=== PATIENT | male | born 1975 | race Caucasian/White ===

== ENCOUNTER 2019-08-22 12:46 | Emergency (ER) | payer BC, OTHER ==
[~2019-08-22] VITALS: Ht 170.2 cm; Wt 92.5 kg
--- NOTE | 2019-08-22 13:02 | Emergency Department Note ---
History of Present Illnes History of Present Illness Chief Complaint: COVID PUI History of Present Illness This is a 44 year old male hx back pain, back surgery 2007, here for uri symptoms, Reports that he has had a fever and cough for 3 days and his fever will not stay down or away. 2 hours ago his fever was 103. He took tylenol and angeline seltzer cold. . Historian: Patient Arrival Mode: Car Onset (how long ago): day(s) Radiation: Reports non-radiation Severity: moderate Duration (how long): day(s) Timing of current episode: intermittent Progression: waxing and waning Relieving factors: none Exacerbating factors: none Treatments prior to arrival: none Past Medical/Family History Physician Review I have reviewed the patient's past medical and family history. Any updates have been documented here. Past Medical History Recent Fever: No Clinical Suspicion of Infectio: No New/Unexplained Change in Ment: No Past Medical History: None, Chronic Back Pain Other Medical History: tachy Other Surgery: BACK SURG 2007 Social History Smoking Cessation: Unknown if ever smoked Any Illegal Drug Use: No TB Exposure/Symptoms: No Physically hurt or threatened: No Other Last Tetanus: UNKNOWN Any Pre-Existing Lines (PICC,: No Review of Systems Review of Systems Constitutional: Reports as per HPI, Reports chills, Reports fever, Reports malaise, Reports weakness EENTM: Reports no symptoms Cardiovascular: Reports no symptoms Respiratory: Reports as per HPI, Reports chest congestion, Reports cough Gastrointestinal: Reports no symptoms Genitourinary: Reports no symptoms Musculoskeletal: Reports no symptoms, Reports muscle pain Integumentary: Reports no symptoms Neurological: Reports no symptoms Psychological: Reports no symptoms Endocrine: Reports no symptoms Hematological/Lymphatic: Reports no symptoms Physical Exam Related Data Allergies: Coded Allergies: No Known Allergies (Unverified , 08/22/19) Vital signs reviewed: Yes Physical Exam CONSTITUTIONAL Constitutional: Present well-developed, Present well-nourished HENT HENT: Present normocephalic, Present atraumatic, Present oropharynx clear/moist, Present nose normal HENT L/R: Present left ext ear normal, Present right ext ear normal EYES Eyes: Reports PERRL, Reports conjunctivae normal NECK Neck: Present ROM normal PULMONARY Pulmonary: Present effort normal, Present breath sounds normal CARDIOVASCULAR Cardiovascular: Present regular rhythm, Present heart sounds normal, Present capillary refill normal, Present normal rate GASTROINTESTINAL Abdominal: Present soft, Present nontender, Present bowel sounds normal GENITOURINARY Genitourinary: Present exam deferred SKIN Skin: Present warm, Present dry MUSCULOSKELETAL Musculoskeletal: Present ROM normal NEUROLOGICAL Neurological: Present alert, Present oriented x 3, Present no gross motor or sensory deficits PSYCHOLOGICAL Psychological: Present mood/affect normal, Present judgement normal Results Laboratory Lab results reviewed: Yes (covid pending, cbc, cmp ok) Imaging Imaging results reviewed: Yes Impressions no acute Assessment & Plan Medical Decision Making MDM covid vs URI Reassessment Reassessment time: 15:45 Reassessment heart rates improved Assessment & Plan Final Impression: (1) Tachycardia (2) Viral infection (3) Upper respiratory infection Depart Disposition: HOME, SELF-long-term Meds Active Scripts Diphenhydra/Phenyleph/Acetamin (THERAFLU COLD AND COUGH POWDER) 1 Each Powd.pack, 1 PACKET PO Q6H PRN for fever and or pain, #12 Prov:TRI RIZZO MD 08/22/19 Azithromycin (Z-ROXIE) 250 Mg Tablet, 250 MG PO UD, #1 UDPKT Z-Pack Prov:TRI RIZZO MD 08/22/19 Dexamethasone (DEXAMETHASONE) 6 Mg Tablet, 1 TAB PO DAILY, #7 Prov:TRI RIZZO MD 08/22/19 Reported Medications Lisinopril (LISINOPRIL) 10 Mg Tablet, 40 MG PO DAILY, #30 TAB 08/22/19 Medications in the ED rocephin 1 gram IV, Tylenol 650 mg po once Physician Attestation Provider Attestation f/u his doctor next week TRI RIZZO MD Aug 22, 2019 13:02
[2019-08-22] MEDS ORDERED: SODIUM CHLORIDE 0.9% 1000ML 1,000 ML IV STA (13:11)
[2019-08-22] MEDS ORDERED: DEXAMETHASONE SOD PHOS 10 MG/1 ML VIAL IV ONE (13:15)
[2019-08-22] MEDS ORDERED: CEFTRIAXONE SOD 1 GM/NS 50 ML 50 ML IV ONE (13:15)
[2019-08-22] MEDS ORDERED: ONDANSETRON HCL INJ 2MG/ML 2ML 2 MG/ML VIAL IV ONE (13:15)
[2019-08-22] MEDS ORDERED: LISINOPRIL10 MG PO (13:23)
[2019-08-22] MEDS ORDERED: SODIUM CHLORIDE 0.9% 1000ML 1,000 ML ONE (13:31)
--- NOTE | 2019-08-22 13:34 | Diagnostic Imaging Report ---
EXAMINATION: CXR 1 VEW - HOPD INDICATION: Fever COMPARISON: None FINDINGS: LINES/TUBES:None LUNGS:The lungs are well-inflated. No focal consolidation or pulmonary edema. PLEURA:No pleural effusion or pneumothorax. MEDIASTINUM:The cardiomediastinal silhouette appears normal in size and shape. BONES/SOFT TISSUES:No acute osseous injury. ABDOMEN:No free air under the diaphragm. IMPRESSION: No focal pneumonia or pulmonary edema. Signed by: Farrah Pierson MD on 08/22/2019 1:30 PM
[2019-08-22] MEDS ORDERED: THERAFLU COLD1 EAC4 PO (14:04)
[2019-08-22] MEDS ORDERED: DEXAMETHASONE6 MG PO (14:04)
[2019-08-22] MEDS ORDERED: AZITHROMYCIN250 MG PO (14:04)
[2019-08-22 17:52] VITALS: BP 126/82
--- NOTE | 2019-08-23 07:00 | NUR ---
Informed by Dr. Mata of positive results
== END 2019-08-22 15:20 | disposition home or self-care (01) ==
LOC: FSED 12:46
DX: U07.1 COVID-19 (principal); R50.9 Fever, unspecified; R05 Cough; R00.0 Tachycardia, unspecified; J06.9 Acute upper respiratory infection, unspecified; B34.9 Viral infection, unspecified
CPT/HCPCS: 71045; 80053; 85025; 87635; 96374; 96375; 99284; J0696; J1100; J2405; J7030

== ENCOUNTER 2019-08-24 17:12 | Inpatient (IN) | payer BC, OTHER ==
[~2019-08-24] VITALS: Ht 170.2 cm; Wt 84.4 kg
[~2019-08-24 17:12] MED LIST: AZITHROMYCIN250 MG PO; DEXAMETHASONE6 MG PO; LISINOPRIL10 MG PO; THERAFLU COLD1 EAC4 PO
[2019-08-24] MEDS ORDERED: SODIUM CHLORIDE 0.9% 1000ML 1,000 ML IV STA (17:15)
[2019-08-24] MEDS ORDERED: HYDROCODONE/CHLORPHENIRAMINE 5 ML LIQCR PO ONE (17:30)
[2019-08-24] MEDS: CEFTRIAXONE SOD 1 GM/NS 50 ML 50 ML IV SCH (17:47)
[2019-08-24] MEDS: AZITHROMYCIN 500MG/NS 250 ML 250 ML IV SCH (18:09)
[2019-08-24 18:10] LABS: BASOPHILS % 0.1 % (0.0-1.0); HEMATOCRIT 38.3 % (38.2-49.6); HEMOGLOBIN 13.3 g/dL (14.0-18.0); LYMPHOCYTES % 9.8 % (18.0-39.1); MEAN CORPUSCULAR HEMOGLOBIN 29.8 pg (28-32); MEAN CORPUSCULAR HGB CONC 34.7 g/dL (31-35); MEAN CORPUSCULAR VOLUME 85.9 fL (81-99); MONOCYTES # (AUTO) 0.4 (0.2-0.8); MONOCYTES % 4.4 % (4.4-11.3); NEUTROPHILS # (AUTO) 8.3 (2.1-6.9); NEUTROPHILS % 85.2 % (38.7-80.0); PLATELET COUNT 152 x10e3/uL (140-360); RED BLOOD COUNT 4.46 x10e6/uL (4.3-5.7)
[2019-08-24 18:15] LABS: INR 0.9; PROTHROMBIN TIME 12.7 seconds (11.9-14.5)
[2019-08-24 18:16] LABS: PARTIAL THROMBOPLASTIN TIME 30.4 seconds (23.8-35.5)
[2019-08-24 18:24] LABS: ALANINE AMINOTRANSFERASE 53 IU/L (0-55); ALBUMIN 3.4 g/dL (3.5-5.0); ALBUMIN/GLOBULIN RATIO 1.1 (0.8-2.0); ALKALINE PHOSPHATASE 42 IU/L (40-150); ANION GAP 15.3 mmol/L (8-16); BLOOD UREA NITROGEN 18 mg/dL (7-26); BUN/CREATININE RATIO 23 (6-25); CALCIUM 8.6 mg/dL (8.4-10.2); CARBON DIOXIDE 24 mmol/L (22-29); CHLORIDE 102 mmol/L (98-107); CREATINE KINASE 152 IU/L (30-200); CREATININE, SERUM 0.77 mg/dL (0.72-1.25); EST GLOMERULAR FILTRATION RATE > 60 ML/MIN (60-); GLUCOSE 103 mg/dL (74-118); POTASSIUM 3.3 mmol/L (3.5-5.1); SODIUM 138 mmol/L (136-145)
--- NOTE | 2019-08-24 18:24 | Diagnostic Imaging Report ---
EXAMINATION: CHEST SINGLE (PORTABLE) INDICATION: COUGH, SOB COMPARISON: Chest radiograph 08/22/2019. FINDINGS: TUBES and LINES: None. LUNGS: Hypoinflated lungs with interval development of patchy and peripheral opacities predominantly in the lower lungs. PLEURA: No pleural effusion or pneumothorax. HEART AND MEDIASTINUM: The cardiomediastinal silhouette is unremarkable. BONES AND SOFT TISSUES: No acute osseous lesion. Soft tissues are unremarkable. UPPER ABDOMEN: No free air under the diaphragm. IMPRESSION: Interval development of bilateral opacities, suggestive of viral pneumonia. Recommend follow-up chest radiograph in 6-8 weeks to assess for resolution. Signed by: Dr. Anurag Braun MD on 08/24/2019 6:21 PM
[2019-08-24 18:48] LABS: B-TYPE NATRIURETIC PEPTIDE2 < 10.0 pg/mL (0-100)
--- NOTE | 2019-08-24 18:48 | Emergency Department Note ---
History of Present Illnes History of Present Illness Chief Complaint: COVID PUI History of Present Illness This is a 44 year old male PT WITH COUGH, PROGRESSIVE SOB X 4 DAYS. STATES SEEN AT [facility] ON SUNDAY 2 DAYS AGO AND TESTED COVID POSITIVE. PT SATS 92% RA, FEVER 104 AT HOME. 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 Historian: Patient Arrival Mode: [facility] Treatment TOWER EQUIPMENT REPAIRER: IV, O2, EKG, See EMS Report Briquette Operator Required: No Onset (how long ago): day(s) (4) Location: LUNGS Radiation: Reports non-radiation Severity: moderate Onset quality: gradual Timing of current episode: constant Progression: worsening Chronicity: new Relieving factors: none Exacerbating factors: none Associated symptoms: Reports cough, Reports fever/chills, Reports shortness of breath, Reports other (ACHY ALL OVER) Treatments prior to arrival: none Past Medical/Family History Physician Review I have reviewed the patient's past medical and family history. Any updates have been documented here. Past Medical History Recent Fever: Yes Clinical Suspicion of Infectio: Yes New/Unexplained Change in Ment: No Past Medical History: Hypertension, Chronic Back Pain Other Medical History: tachy Past Surgical History: Back Surgery Other Surgery: BACK SURG 2007 Social History Smoking Cessation: Never Smoker Counseling Performed: No Alcohol Use: None Any Illegal Drug Use: No TB Exposure/Symptoms: No Physically hurt or threatened: No Other Last Tetanus: UNKNOWN Any Pre-Existing Lines (PICC,: No Last Flu: Y Last Pneumovax: N Review of Systems Review of Systems Constitutional: Reports as per HPI, Reports chills, Reports fever EENTM: Reports no symptoms Cardiovascular: Reports no symptoms Respiratory: Reports as per HPI, Reports cough, Reports dyspnea Gastrointestinal: Reports no symptoms Genitourinary: Reports no symptoms Musculoskeletal: Reports as per HPI, Reports joint pain, Reports muscle pain Integumentary: Reports no symptoms Neurological: Reports no symptoms Psychological: Reports no symptoms Endocrine: Reports no symptoms Hematological/Lymphatic: Reports no symptoms Physical Exam Related Data Allergies: Coded Allergies: No Known Allergies (Unverified , 08/22/19) Triage Vital Signs Vital Signs Date Time Temp Pulse Resp B/P (MAP) Pulse Ox O2 Delivery O2 Flow Rate FiO2 08/24/19 17:13 103.0 120 28 149/84 92 08/24/19 17:48 3.0 Vital signs reviewed: Yes Physical Exam CONSTITUTIONAL Constitutional: Present distressed HENT HENT: Present normocephalic, Present atraumatic, Present oropharynx clear/moist , Present nose normal HENT L/R: Present left ext ear normal, Present right ext ear normal EYES Eyes: Reports PERRL, Reports conjunctivae normal NECK Neck: Present ROM normal PULMONARY Pulmonary: Present respiratory distress (MILD WITH TACHYPNEA), Present other (DECREASED BREATH SOUNDS BILAT BASES) CARDIOVASCULAR Cardiovascular: Present regular rhythm, Present heart sounds normal, Present tachycardia GASTROINTESTINAL Abdominal: Present soft, Present nontender, Present bowel sounds normal GENITOURINARY Genitourinary: Present exam deferred SKIN Skin: Present warm, Present dry MUSCULOSKELETAL Musculoskeletal: Present ROM normal NEUROLOGICAL Neurological: Present alert, Present oriented x 3, Present no gross motor or sensory deficits PSYCHOLOGICAL Psychological: Present mood/affect normal, Present judgement normal Results Laboratory Result Diagram: 08/24/19 1740 08/24/19 1740 Laboratory Laboratory Tests Test 08/24/19 17:40 White Blood Count 9.78 x10e3/uL (4.8-10.8) Red Blood Count 4.46 x10e6/uL (4.3-5.7) Hemoglobin 13.3 g/dL (14.0-18.0) Hematocrit 38.3 % (38.2-49.6) Mean Corpuscular Volume 85.9 fL (81-99) Mean Corpuscular Hemoglobin 29.8 pg (28-32) Mean Corpuscular Hemoglobin Concent 34.7 g/dL (31-35) Red Cell Distribution Width 12.0 % (11.7-14.4) Platelet Count 152 x10e3/uL (140-360) Neutrophils (%) (Auto) 85.2 % (38.7-80.0) Lymphocytes (%) (Auto) 9.8 % (18.0-39.1) Monocytes (%) (Auto) 4.4 % (4.4-11.3) Eosinophils (%) (Auto) 0.0 % (0.0-6.0) Basophils (%) (Auto) 0.1 % (0.0-1.0) Neutrophils # (Auto) 8.3 (2.1-6.9) Lymphocytes # (Auto) 1.0 (1.0-3.2) Monocytes # (Auto) 0.4 (0.2-0.8) Eosinophils # (Auto) 0.0 (0.0-0.4) Basophils # (Auto) 0.0 (0.0-0.1) Absolute Immature Granulocyte (auto 0.05 x10e3/uL (0-0.1) Prothrombin Time 12.7 seconds (11.9-14.5) Prothromb Time International Ratio 0.90 Activated Partial Thromboplast Time 30.4 seconds (23.8-35.5) Sodium Level 138 mmol/L (136-145) Potassium Level 3.3 mmol/L (3.5-5.1) Chloride Level 102 mmol/L (98-107) Carbon Dioxide Level 24 mmol/L (22-29) Anion Gap 15.3 mmol/L (8-16) Blood Urea Nitrogen 18 mg/dL (7-26) Creatinine 0.77 mg/dL (0.72-1.25) Estimat Glomerular Filtration Rate > 60 ML/MIN (60-) BUN/Creatinine Ratio 23 (6-25) Glucose Level 103 mg/dL (74-118) Lactic Acid Level 1.3 mmol/L (0.5-2.0) Calcium Level 8.6 mg/dL (8.4-10.2) Total Bilirubin 0.5 mg/dL (0.2-1.2) Aspartate Amino Transf (AST/SGOT) 23 IU/L (5-34) Alanine Aminotransferase (ALT/SGPT) 53 IU/L (0-55) Alkaline Phosphatase 42 IU/L (40-150) Creatine Kinase 152 IU/L (30-200) Creatine Kinase MB 0.40 ng/mL (0-5.0) Troponin I < 0.001 ng/mL (0-0.300) Total Protein 6.4 g/dL (6.5-8.1) Albumin 3.4 g/dL (3.5-5.0) Globulin 3.0 g/dL (2.3-3.5) Albumin/Globulin Ratio 1.1 (0.8-2.0) Lab results reviewed: Yes Imaging Imaging results reviewed: Yes Impressions Procedure: [id number] DX/CHEST SINGLE (PORTABLE) Exam Date: 08/24/19 Exam Time: 3864 REPORT STATUS: Signed EXAMINATION: CHEST SINGLE (PORTABLE) INDICATION: COUGH, SOB COMPARISON: Chest radiograph 08/22/2019. FINDINGS: TUBES and LINES: None. LUNGS: Hypoinflated lungs with interval development of patchy and peripheral opacities predominantly in the lower lungs. PLEURA: No pleural effusion or pneumothorax. HEART AND MEDIASTINUM: The cardiomediastinal silhouette is unremarkable. BONES AND SOFT TISSUES: No acute osseous lesion. Soft tissues are unremarkable. UPPER ABDOMEN: No free air under the diaphragm. IMPRESSION: Interval development of bilateral opacities, suggestive of viral pneumonia. Recommend follow-up chest radiograph in 6-8 weeks to assess for resolution. Signed by: Dr. Anurag Braun MD on 08/24/2019 6:21 PM Procedures 12 Lead ECG Interpretation ECG Interpretation : ECG: ECG 1 Briquette Operator: Interpreted by ED physician Date: Aug 24, 2019 Time: 17:20 Rhythm: sinus tachycardia Rate: tachycardia (129) QRS axis: normal ST segments normal: Yes T waves normal: Yes Q waves: III, aVF Clinical Impression: abnormal ECG (POOR RWP) Assessment & Plan Medical Decision Making MDM COVID POSITIVE - CHECK CBC, CHEM'S, CARDIACS, CXR, PANCX'S, LACTIC ACID - R/O PNEUMONIA, SEPSIS, RENAL INSUFF, ELECTROLYTE ABNL, STEMI/NSTEMI Reassessment Reassessment SPOKE WITH DR HI, DR Max BERGERON, DR NUNES Assessment & Plan Final Impression: (1) Pneumonia due to COVID-19 virus Depart Disposition: ADMITTED Last Vital Signs Date Time Temp Pulse Resp B/P (MAP) Pulse Ox O2 Delivery O2 Flow Rate FiO2 08/24/19 18:10 102.0 121 30 118/84 100 08/24/19 17:48 3.0 Home Meds Active Scripts Diphenhydra/Phenyleph/Acetamin (THERAFLU COLD AND COUGH POWDER) 1 Each Powd.pack, 1 PACKET PO Q6H PRN for fever and or pain, #12 Prov:TRI RIZZO MD 08/22/19 Azithromycin (Z-ROXIE) 250 Mg Tablet, 250 MG PO UD, #1 UDPKT Z-Pack Prov:TRI RIZZO MD 08/22/19 Dexamethasone (DEXAMETHASONE) 6 Mg Tablet, 1 TAB PO DAILY, #7 Prov:TRI RIZZO MD 08/22/19 Reported Medications Lisinopril (LISINOPRIL) 10 Mg Tablet, 40 MG PO DAILY, #30 TAB 08/22/19 Medications in the ED Sodium Chloride 1,000 ml @ 0 mls/hr Q0M STAT IV Last administered on 08/24/19at 17:47; Admin Dose 1,000 MLS/HR; Start 08/24/19 at 17:15; Stop 08/24/19 at 17:18; Status DC Ceftriaxone Sodium 50 ml @ 100 mls/hr Q24H IV Last administered on 08/24/19at 17:47; Admin Dose 100 MLS/HR; Start 08/24/19 at 17:15; Stop 08/31/19 at 17:14 Azithromycin 250 ml @ 200 mls/hr DAILY IV Last administered on 08/24/19at 18:09; Admin Dose 200 MLS/HR; Start 08/24/19 at 17:15; Stop 08/31/19 at 17:14 Hydrocodone Bitartrate 5 ml NOW ONCE PO Last administered on 08/24/19at 17:47; Admin Dose 5 ML; Start 08/24/19 at 17:30; Stop 08/24/19 at 17:31; Status DC Sodium Chloride 1,000 ml @ 125 mls/hr Q8H IV ; Start 08/24/19 at 18:45; Stop 08/25/19 at 10:44; Status UNV Albuterol 2 gm RQ4H PRN INH SHORTNESS OF BREATH; Start 08/24/19 at 18:45; Stop 09/23/19 at 18:44; Status UNV RERE KAPLAN MD Aug 24, 2019 18:48
[2019-08-24] MEDS ORDERED: IBUPROFEN 800MG/ 200ML 800 MG in SODIUM CHLORIDE 0.9% 250ML 250 ML IV ONE (19:00)
[2019-08-24] MEDS ORDERED: ACETAMINOPHEN 325 MG TAB PO PRN (19:00)
[2019-08-24] MEDS ORDERED: DEXAMETHASONE SOD PHOS 10 MG/1 ML VIAL IV ONE (19:15)
--- NOTE | 2019-08-24 19:50 | Consultation ---
DATE OF CONSULTATION: Pulmonary Critical Care Consultation CHIEF COMPLAINT: Cough and fever. HISTORY OF PRESENT ILLNESS: The patient is a 44-year-old man. He reports fever and cough for 5 days. He had used some ibuprofen at home, but feels he is getting worse. He also notes some dyspnea. He denies nausea or vomiting. PAST MEDICAL HISTORY: 1. No prior history of asthma or COPD. 2. No prior history of diabetes. 3. Hypertension. 4. No prior heart disease. PAST SURGICAL HISTORY: Noncontributory. ALLERGIES: NO KNOWN DRUG ALLERGIES. SOCIAL HISTORY: The patient is not a smoker or drinker. FAMILY HISTORY: Noncontributory. REVIEW OF SYSTEMS: He reports some fever. There is no headache. He has some cough. He is not complaining of chest pain. He has some dyspnea. There is no nausea or vomiting. He has no leg edema. PHYSICAL EXAMINATION: VITAL SIGNS: The patient is afebrile. The vital signs are stable. He is febrile to 103.2. His heart rate is 125, and his respiratory rate is 25. His blood pressure is 122/75. HEENT: Shows no facial swelling or erythema. CARDIAC: Reveals tachycardia with normal S1 and S2. LUNGS: Auscultation of lungs reveals crackles at the bases. There is no wheezing. ABDOMEN: Soft and nontender. There is no rebound or guarding. EXTREMITIES: Shows no leg edema or calf tenderness. There is no cyanosis or clubbing. SKIN: Shows no rashes. NEUROLOGICAL: Shows no focal abnormalities. LABORATORY DATA: White blood cell count is 9.7, hemoglobin is 13.3, and the platelet count is 152. The BUN to creatinine ratio is 18 to 0.77, and the potassium is 3.3. Other electrolytes are within normal limits. The albumin is 3.4. RADIOGRAPHIC DATA: Chest x-ray shows bilateral infiltrates, suggestive of viral pneumonia. IMPRESSION: 1. COVID-19 and viral pneumonia. 2. Tachycardia. 3. Hypokalemia. 4. Dehydration. PLAN: 1. IV fluids. 2. Zithromax and Rocephin. 3. Lovenox. 4. Dexamethasone. 5. Cough suppressant. Maximilian Lowry MD [facility] :27:28 /[id number]
[2019-08-24 20:00] VITALS: BP 121/79
[2019-08-24] MEDS ORDERED: POTASSIUM CHLORIDE 20 MEQ TAB CR PO NR ×2 (20:00→21:46)
[2019-08-24] MEDS ORDERED: ZOLPIDEM TARTRATE 10 MG TAB PO PRN (21:00)
[2019-08-24] MEDS: SODIUM CHLORIDE 0.9% 1000ML 1,000 ML IV SCH (21:44)
[2019-08-24] MEDS: ENOXAPARIN SOD INJ 40 MG/0.4 ML SYR SC SCH (21:44)
[2019-08-24] MEDS: GUAIFENESIN/CODEINE 10 ML CUP PO PRN (21:47)
[2019-08-24] MEDS ORDERED: POTASSIUM CHLORIDE 20 MEQ TAB CR PO SCH (21:51)
[2019-08-24 21:52] VITALS: BP 121/79
[2019-08-24 21:57] VITALS: BP 121/79
[2019-08-25] VITALS (15 sets, daily range): BP systolic 117–193; BP diastolic 67–105
[2019-08-25] MEDS: GUAIFENESIN/CODEINE 10 ML CUP PO PRN ×2 (01:55→21:30)
[2019-08-25] MEDS: ALBUTEROL SULFATE HFA 8GM INHALATION AEROSOL INH PRN (01:55)
[2019-08-25] MEDS: ACETAMINOPHEN 325 MG TAB PO PRN (02:20)
--- NOTE | 2019-08-25 02:36 | NUR ---
0150 Patient c/o cough and SOB. Patient taking shallow rapid breaths. 50 to 60 breaths per minute, 02 sat 84 % RA. Attempted to apply 02, patient stating " it is not helping" Encourage patient to wear 02, explained 02 sat 84% and needing to wear 02. Patient verbalized understanding. 02 applied 2L NC. 0155 PRN medication administered, v/s 193/105, 132, 93% 5L NC, RR 35, 98.7. Patient shivering and reporting he is "freezing" A/C in room adjusted and additional blanket given. 0200 Patient reporting "feeling better, this happens every night this is why I have not been able to sleep" v/s 162/100, 115, 28 RR, 95% 5L NC, 99.7. 0207 No further shivering noted. v/s 165/96, 112, 97% on 02 3L NC, 25RR, 99.7. Will continue to monitor. Addendum: 08/25/19 at 0250 by Brenda Mario RN 0207 BP 156/96
[2019-08-25 02:55] LABS: CLARITY,URINE CLEAR (CLEAR); COLOR,URINE YELLOW (YELLOW); KETONES,URINE NEGATIVE (NEGATIVE); LEUKOCYTE ESTERASE ,URINE NEGATIVE (NEGATIVE); NITRITE,URINE NEGATIVE (NEGATIVE); PROTEIN,URINE DIPSTICK NEGATIVE (NEGATIVE)
[2019-08-25 02:56] LABS: BACTERIA,URINE MODERATE /HPF; BILIRUBIN,URINE NEGATIVE (NEGATIVE); EPITHELIAL CELLS,URINE FEW /LPF; MUCUS,URINE MANY (RARE); URINE UROBILINOGEN 0.2 mg/dL (0.2 - 1)
[2019-08-25 03:02] LABS: BASOPHILS % 0.1 % (0.0-1.0); HEMATOCRIT 36.5 % (38.2-49.6); HEMOGLOBIN 12.6 g/dL (14.0-18.0); LYMPHOCYTES # (AUTO) 1.1 (1.0-3.2); LYMPHOCYTES % 10.6 % (18.0-39.1); MEAN CORPUSCULAR HEMOGLOBIN 30.1 pg (28-32); MEAN CORPUSCULAR HGB CONC 34.5 g/dL (31-35); MEAN CORPUSCULAR VOLUME 87.3 fL (81-99); MONOCYTES # (AUTO) 0.3 (0.2-0.8); MONOCYTES % 2.5 % (4.4-11.3); NEUTROPHILS % 86.3 % (38.7-80.0); PLATELET COUNT 127 x10e3/uL (140-360); RED BLOOD COUNT 4.18 x10e6/uL (4.3-5.7); RED CELL DISTRIBUTION WIDTH 12.2 % (11.7-14.4)
[2019-08-25 03:04] LABS: CREATINE KINASE 240 IU/L (30-200)
--- NOTE | 2019-08-25 03:05 | NUR ---
Left message for Dr Aparicio, patient c/o cough given PRN Robitussin with codeine 2 different times and patient stating not helping like medication received in ER. Awaiting call back.
[2019-08-25 03:32] LABS: ALANINE AMINOTRANSFERASE 46 IU/L (0-55); ALBUMIN 3.2 g/dL (3.5-5.0); ALKALINE PHOSPHATASE 42 IU/L (40-150); ANION GAP 15.8 mmol/L (8-16); BLOOD UREA NITROGEN 14 mg/dL (7-26); BUN/CREATININE RATIO 17 (6-25); CARBON DIOXIDE 23 mmol/L (22-29); CHLORIDE 103 mmol/L (98-107); CREATININE, SERUM 0.83 mg/dL (0.72-1.25); EST GLOMERULAR FILTRATION RATE > 60 ML/MIN (60-); GLUCOSE 94 mg/dL (74-118); POTASSIUM 3.8 mmol/L (3.5-5.1); SODIUM 138 mmol/L (136-145)
--- NOTE | 2019-08-25 03:35 | NUR ---
Return call Dr Aparicio, New orders received.
[2019-08-25] MEDS: SODIUM CHLORIDE 0.9% 1000ML 1,000 ML IV SCH (03:50)
[2019-08-25] MEDS: HYDROCODONE/CHLORPHENIRAMINE 5 ML LIQCR PO PRN ×2 (03:50→13:26)
[2019-08-25] MEDS ORDERED: IBUPROFEN 600 MG TAB PO SCH (06:30)
--- NOTE | 2019-08-25 06:45 | NUR ---
0615 Tele called and stated patient 02 sat off and HR 140's. Patient in bed, noted retractions, RR 48, HR 138, 02 sat 83% on 3L NC. 02 increased to 5L NC, 02 sat 86%. Patient placed on non-rebreather, sating 93%. [address] Aparicio regarding v/s 169/92, 138, 48 RR, 93% on non-rebreather, temp 103.0 tylenol given at 0220, no other PRN med available for temp. New order for Motrin 600mg po x1, and call Dr Lowry. [address] Lowry regarding v/s and 02 sat 86% on 5L NC. Patients still having retractions, RR 35, Patient on non-rebreather at 94 to 97% on non-rebreather. New orders to transfer to ICU, place 2 ivs, and place on vapotherm 0635 Dr Lowry on unit to see patient. Patient sitting on side of bed, HR 148 and 02 sat 79% while drinking water. Non-rebreather reapplied, 02 sats up to 93 to 94%. New order for EKG to check rhythm.
--- NOTE | 2019-08-25 07:00 | NUR ---
RECEIVED REPORT FROM OFF GOING NIGHT NURSE. PATIENT ON NON-REBREATHER @ 15 LPM. TEMP 103.0. PATIENT IN BED NO RETRACTIONS NOTED AT THIS TIME. COUGHING NOTED RR- 30. DR. BERGERON AT BEDSIDE. ORDERS TO TRANSFER PATIENT TO ICU. BED IN LOWEST POSITION AND LOCKED. CALL LIGHT WITHIN REACH
--- NOTE | 2019-08-25 07:37 | Diagnostic Imaging Report ---
Examination: Single AP view of the chest. COMPARISON: Portable chest 08/24/2019 INDICATION: Pneumonia IMPRESSION: 1. Lines and Tubes: None 2. Hypoinflated lungs. Interval worsening of bilateral patchy, predominantly peripheral airspace opacities involving the upper and lower lobes, consistent with pneumonia (including viral). 3. Prominence of the cardiac silhouette, which is partly due to low lung volumes. Central pulmonary venous crowding 4. No acute bony abnormalities. Signed by: Dr. Aniket Loredo M.D. on 08/25/2019 7:34 AM
--- NOTE | 2019-08-25 08:01 | Progress Note ---
DATE: Pulmonary Critical Care Progress Note SUBJECTIVE: The patient had more difficulty breathing today. His desaturations fell into the low 80s. He had to be placed on 100%. He is now on 100% and has tachycardia, but still is saturating in the high 80s. PHYSICAL EXAMINATION: VITAL SIGNS: The patient is afebrile. T-max is 103. The heart rate is 138. The respiratory rate is 40 and saturation is 96% on 100%. HEENT: Shows no facial swelling or erythema. CARDIAC: Irregularly regular rhythm with normal S1 and S2. LUNGS: Auscultation of lungs reveals crackles at the bases. There is no wheezing. ABDOMEN: Soft and nontender. There is no rebound or guarding. EXTREMITIES: Shows no leg edema or calf tenderness. There is no cyanosis or clubbing. SKIN: Shows no rashes. NEUROLOGICAL: Shows no focal abnormalities. LABORATORY DATA: BUN to creatinine ratio is 14 to 0.83. Other electrolytes are within normal limits. The albumin is 3.2. The white blood cell count is 10.45 and the hemoglobin is 12.6. The platelet count is 127. IMPRESSION: 1. Acute respiratory failure. 2. Viral pneumonia and COVID-19 infection. 3. Sinus tachycardia. 4. Dehydration. PLAN: 1. The patient will be placed on Vapotherm and transferred to ICU. 2. Continue current antibiotics. 3. Stop any intravenous fluids. 4. Dexamethasone. 5. Lovenox. 6. Evaluation for remdesivir 7. case discussed with nursing, respiratory, administration, infectious disease and patient 8. greater than 35 minutes in direct critical care time. Maximilian Lowry MD [facility] /[id number] YOSVANY
[2019-08-25] MEDS: DEXAMETHASONE SOD PHOS 10 MG/1 ML VIAL IV SCH (11:34)
[2019-08-25] MEDS: ENOXAPARIN SOD INJ 40 MG/0.4 ML SYR SC SCH ×2 (11:34→21:15)
[2019-08-25] MEDS ORDERED: SODIUM CHLORIDE 0.9% 1000ML 1,000 ML ONE (11:42)
[2019-08-25] MEDS: AZITHROMYCIN 500MG/NS 250 ML 250 ML IV SCH (11:45)
--- NOTE | 2019-08-25 11:53 | NUR ---
CALLED REPORT TO ICU- REPORT GIVEN TO KELLY THOMPSON. NON-REBREATHER @ 15 LPM OXYGEN STATING AT 100%. NO RETRACTIONS NOTED. FEVER BROKE TO 98.0 AFTER TYLENOL. PATIENT OFF THE UNIT @ 1132. VIA WHEEL CHAIR ACCOMPANIED BY PCT AND RN TO ICU.
[2019-08-25] MEDS ORDERED: REMDESIVIR 200MG/NS 100ML 200 MG in SODIUM CHLORIDE 0.9% 100 ML 100 ML IV ONE (14:00)
[2019-08-25] MEDS ORDERED: REMDESIVIR IV ONE (14:00)
[2019-08-25] MEDS ORDERED: SODIUM CHLORIDE 0.45% IV ONE (14:00)
[2019-08-25] MEDS: METOPROLOL TARTRATE 25 MG TAB PO SCH ×2 (14:40→18:19)
[2019-08-25] MEDS: ASCORBIC ACID 500 MG TAB PO SCH (14:40)
[2019-08-25 15:23] LABS: CREATINE KINASE 215 IU/L (30-200)
[2019-08-25] MEDS: CEFTRIAXONE SOD 1 GM/NS 50 ML 50 ML IV SCH (16:54)
--- NOTE | 2019-08-25 16:58 | Progress Note ---
DATE: SUBJECTIVE: Mr. Jd Molina was moving to intensive care unit. He remains comfortable. He thought remdesivir. He agreed for it. We will follow. MD MAYURI Taylor/REYESL /[id number]
[2019-08-25] MEDS ORDERED: DEXMEDETOMIDINE 200MCG/NS 50ML 50 ML IV PRN (17:45)
--- NOTE | 2019-08-25 18:55 | Progress Note ---
DATE: 08/25/2019 SUBJECTIVE: Mr. Jesse Miles comes in with 6 days of fever, chills, cough, and shortness of breath, getting progressively worse. PAST MEDICAL HISTORY: The patient has no past medical history. PAST SURGICAL HISTORY: Denies. ALLERGIES: NKA. SOCIAL HISTORY: No smoking, drug abuse, or alcohol abuse. PHYSICAL EXAMINATION: GENERAL: He is currently alert and oriented, does not seem to be in acute distress. VITAL SIGNS: Stable, currently afebrile. HEENT: He is not icteric. NECK: Supple. CHEST: Crackles bilateral. COR: S1 and S2. ABDOMEN: Soft. IMPRESSION: COVID-19. PLAN: Discussed with the patient. I offered him remdesivir, which was an investigational drug with expanded access 4% of cases. He agreed to it, in fact, he was given phone number, concerned about superimposed bacterial pneumonia. I agree with Rocephin and azithromycin. Agree with Lovenox, vitamin C and zinc and dexamethasone. The patient apparently is getting worse, discussed with Pulmonary. We would like to go to ICU once bed is available. MD MAYURI Taylor/ANGELA /[id number]
--- NOTE | 2019-08-25 19:30 | History and Physical ---
PRIMARY CARE PHYSICIAN: CHIEF COMPLAINT: Fever, cough, and shortness of breath. HISTORY OF PRESENT ILLNESS: This is a 44-year-old male with past medical history of high blood pressure, presented to the ER with complaints of fever, shortness of breath and cough x5 days. He reports went to the [facility] ER three days ago and was told he was COVID positive two days ago. He continued to have shortness of breath and constant cough, so he presented to the ER for further evaluation. In the ER, his temperature was 103, heart rate 120, blood pressure 149/84, pulse ox 92%. Chest x-ray showed interval development of bilateral opacities suggestive of viral pneumonia. So was admitted for further management. He denies any chest pain, nausea, vomiting, diarrhea, or dysuria. PAST MEDICAL HISTORY: Hypertension. SURGICAL HISTORY: Spinal surgery. FAMILY MEDICAL HISTORY: Noncontributory. SOCIAL HISTORY: He denies tobacco or illicit drug use. He reports drinking alcohol occasionally. ALLERGIES: NO KNOWN DRUG ALLERGIES. REVIEW OF SYSTEMS: Systems reviewed and negative except the ones reported in HPI. PHYSICAL EXAMINATION: VITAL SIGNS: Temperature 103.0, pulse is 138, respirations , blood pressure 169/92, pulse ox was 83, O2 nasal cannula 3 L. GENERAL: Fatigue. HEENT: Normocephalic, atraumatic. NECK: Supple. LUNGS: Decreased breath sounds with shallow breathing and tachypneic. CARDIOVASCULAR: Tachycardia, sinus, regular, S1, S2. GI: Soft and nontender. NEUROLOGIC: Alert, awake, and oriented x3. MUSCULOSKELETAL: Moves all extremities. No edema. SKIN: Dry and intact. PSYCH: Calm. LABORATORY DATA: WBC 2.48, hemoglobin 12.6, hematocrit 36.5, platelets 177. Sodium 138, potassium 3.8, BUN is 14, creatinine 0.83, estimated GFR is greater than 60. Lactic acid 1.3, AST 23, ALT 46, CK 240, troponin I is 0.001. BNP less than 10. PT 12.7, INR 0.90, and PTT 30.4. UA is negative. Blood and urine cultures pending. Chest x-ray shows interval worsening of bilateral patchy, predominantly peripheral airspace opacities involving the upper and lower lobes consistent with pneumonia including viral. IMPRESSION: 1. Acute respiratory distress due to pneumonia with coronavirus disease-19. He is started on Rocephin, azithromycin, . Albuterol as needed and cough medicine as needed. 2. Hypokalemia. Replaced. 3. Hypertension. We will start on metoprolol mg b.i.d. and increase as needed as well. 4. Hypoxia due to acute respiratory distress due to pneumonia with coronavirus disease-19. Currently on non-rebreather mask. We will be transferring to ICU for further monitoring. 5. on Lovenox. PLAN: Continue with antibiotics, vitamin, decadron and remdesivir has been ordered this morning per ID. Dictated by SNEHAL Laguerre Taylor Aparicio MD MY/MODL /[id number]
[2019-08-25] MEDS: DEXMEDETOMIDINE 200MCG/NS 50ML 50 ML IV PRN (22:14)
[2019-08-26] VITALS (25 sets, daily range): BP systolic 90–134; BP diastolic 53–89
[2019-08-26] MEDS: ACETAMINOPHEN 325 MG TAB PO PRN (01:11)
[2019-08-26] MEDS: DEXMEDETOMIDINE 200MCG/NS 50ML 50 ML IV PRN ×4 (01:11→11:44)
[2019-08-26] MEDS: HYDROCODONE/CHLORPHENIRAMINE 5 ML LIQCR PO PRN ×2 (01:11→19:30)
[2019-08-26] MEDS: LISINOPRIL 20 MG TAB PO SCH (09:00)
[2019-08-26] MEDS: DEXAMETHASONE SOD PHOS 10 MG/1 ML VIAL IV SCH (10:15)
[2019-08-26] MEDS: AZITHROMYCIN 500MG/NS 250 ML 250 ML IV SCH (10:15)
[2019-08-26] MEDS: METOPROLOL TARTRATE 25 MG TAB PO SCH ×2 (10:15→17:00)
[2019-08-26] MEDS: ENOXAPARIN SOD INJ 40 MG/0.4 ML SYR SC SCH ×2 (10:15→21:00)
[2019-08-26] MEDS: ASCORBIC ACID 500 MG TAB PO SCH (10:15)
--- NOTE | 2019-08-26 11:28 | Progress Note ---
DATE: SUBJECTIVE: The patient is comfortable in bed. Discussed with the nurse. REVIEW OF SYSTEMS: The patient seems to be awake and alert, responds appropriately, currently on non-rebreather at 15 L and a high-flow at 10 L, saturating at 97%; however, may be converted to Vapotherm. He has increased respiration rate at 40. BP seems to be stable. Apparently, the patient had a maximum temperature of 100.9 per my discussion with nurse last night, status post Tylenol. Today, this morning temperature by 3 o'clock was 100.1. OBJECTIVE: VITAL SIGNS: Temperature 100.9, pulse of 81, respirations 25, blood pressure 110/70. LABORATORY STUDIES: White count of 10.45, hemoglobin 12.6, platelet 127, down from 152. Sodium 138, potassium 3.8, creatinine 0.83, alkaline phosphatase 42, ALT 46, AST 23. Microbiology; blood culture negative so far on 08/23. Urine culture negative 24 hours on 08/24. RADIOLOGY STUDIES: No new radiology studies available. ASSESSMENT AND PLAN: 1. Coronavirus disease-19. 2. Hypertension. 3. Fever. 4. Elevated creatine kinase. 5. Hypoalbuminemia. 6. Electrolyte abnormality. 7. Continue with Zithromax and Rocephin. Also, remains on remdesivir, dexamethasone, remains on ascorbic acid. We will add zinc sulfate. Continue to monitor the patient clinically and follow with the labs. Dictated by Chirag Moreno PA-C (Al) Andreea Maguire MD /MODL /[id number]
--- NOTE | 2019-08-26 13:29 | Progress Note ---
DATE: 08/26/2019 CHIEF COMPLAINT: Fever, cough, and shortness of breath. CONSULTANTS: 1. Dr. Maguire with Infectious Disease. 2. Dr. Lowry, metals sales representative. SUBJECTIVE: The patient is seen in the ICU, on high-flow O2 and non-rebreather mask. He reports he is feeling a little better. He denies any chest pain, nausea, vomiting. He was noted to have a temp of 100.9 overnight. Now improved. Tachycardia has improved. PHYSICAL EXAMINATION: VITAL SIGNS: Temperature 99.8, pulse is 85, respirations 23, blood pressure 110/70, pulse ox is 95% on non-rebreather mask and high-flow nasal cannula. GENERAL: Fatigue. HEENT: Normocephalic, atraumatic. LUNGS: Decreased breath sounds with shallow breathing and tachypnea. CARDIOVASCULAR: Regular rate and rhythm, S1 and S2. GI: Soft and nontender. NEUROLOGIC: Alert, awake, and oriented x3. MUSCULOSKELETAL: Moves all extremities. No edema. SKIN: Dry and intact. PSYCH: Calm. IMPRESSION: 1. Acute respiratory distress due to COVID-19 pneumonia. Continue on Rocephin, azithromycin, Decadron, albuterol and Mucinex as needed. 2. Hypertension. Continue metoprolol b.i.d., and hydralazine as needed. 3. Hypoxia due to pneumonia with COVID-19. Currently on high-flow nasal cannula and non-rebreather. We will continue to monitor closely and intubate if needed. 4. Deep vein thrombosis prophylaxis. On Lovenox. PLAN: Continue supportive care, antibiotics, vitamin C and zinc sulfate, further recommendations per ID. Dictated by SNEHAL Laguerre Taylor Aparicio MD MY/MODL /[id number]
[2019-08-26] MEDS: REMDESIVIR 100MG/NS 100ML 100 MG in SODIUM CHLORIDE 0.9% 100 ML 100 ML IV SCH (14:45)
[2019-08-26] MEDS: CEFTRIAXONE SOD 1 GM/NS 50 ML 50 ML IV SCH (17:15)
--- NOTE | 2019-08-26 19:16 | Progress Note ---
DATE: SUBJECTIVE: The patient was placed on Vapotherm earlier today and has responded well to Vapotherm. He is on O2 flow rate of 40 and 100%. He is saturating 100% and his respiratory rate is in the high 20s. He has received remdesivir. PHYSICAL EXAMINATION: VITAL SIGNS: The patient is afebrile. The blood pressure is 110/70 and the pulse is 92. His respiratory rate is 25. HEENT: Shows no facial swelling or erythema. CARDIAC: Reveals a regular rate and rhythm with normal S1 and S2. LUNGS: Auscultation of lungs reveals crackles in both lung [place]. ABDOMEN: Soft and nontender. There is no rebound or guarding. EXTREMITIES: Shows no leg edema or calf tenderness. There is no cyanosis or clubbing. LABORATORY DATA: CBC is within normal limits. IMPRESSION: 1. Acute respiratory failure. 2. Viral pneumonia and COVID-19 infection. 3. Hypertension. PLAN: 1. Continue remdesivir. 2. Continue Vapotherm. 3. Continue Lovenox. 4. Continue dexamethasone. 5. Continue to control blood pressure. Maximilian Lowry MD [facility]/MODL /[id number]
[2019-08-26] MEDS: GUAIFENESIN/CODEINE 10 ML CUP PO PRN (23:32)
[2019-08-27] VITALS (27 sets, daily range): BP systolic 95–141; BP diastolic 62–97
[2019-08-27 05:39] LABS: HEMATOCRIT 35.1 % (38.2-49.6); HEMOGLOBIN 12.1 g/dL (14.0-18.0); LYMPHOCYTES # (AUTO) 0.3 (1.0-3.2); LYMPHOCYTES % 3.9 % (18.0-39.1); MEAN CORPUSCULAR HEMOGLOBIN 30.1 pg (28-32); MEAN CORPUSCULAR HGB CONC 34.5 g/dL (31-35); MEAN CORPUSCULAR VOLUME 87.3 fL (81-99); MONOCYTES # (AUTO) 0.3 (0.2-0.8); MONOCYTES % 3.3 % (4.4-11.3); NEUTROPHILS # (AUTO) 7.9 (2.1-6.9); NEUTROPHILS % 92.2 % (38.7-80.0); PLATELET COUNT 188 x10e3/uL (140-360); RED BLOOD COUNT 4.02 x10e6/uL (4.3-5.7); RED CELL DISTRIBUTION WIDTH 11.6 % (11.7-14.4)
[2019-08-27 05:50] LABS: ALANINE AMINOTRANSFERASE 32 IU/L (0-55); ALBUMIN 2.5 g/dL (3.5-5.0); ALBUMIN/GLOBULIN RATIO 0.7 (0.8-2.0); ALKALINE PHOSPHATASE 51 IU/L (40-150); ANION GAP 10.9 mmol/L (8-16); BLOOD UREA NITROGEN 19 mg/dL (7-26); BUN/CREATININE RATIO 28 (6-25); CALCIUM 8.5 mg/dL (8.4-10.2); CARBON DIOXIDE 26 mmol/L (22-29); CHLORIDE 103 mmol/L (98-107); CREATININE, SERUM 0.68 mg/dL (0.72-1.25); EST GLOMERULAR FILTRATION RATE > 60 ML/MIN (60-); GLUCOSE 151 mg/dL (74-118); POTASSIUM 3.9 mmol/L (3.5-5.1); SODIUM 136 mmol/L (136-145)
--- NOTE | 2019-08-27 08:33 | Diagnostic Imaging Report ---
EXAMINATION: CHEST SINGLE (PORTABLE) INDICATION: ^resp failure ^[id number] ^0545. COMPARISON: 08/25/2019 FINDINGS: AP view TUBES and LINES: None. LUNGS: Persistent but improved patchy opacities throughout the right lung. There is interval increased consolidation in the left mid and lower lung. PLEURA: No significant pleural effusion or pneumothorax. HEART AND MEDIASTINUM: The cardiomediastinal silhouette is stable. BONES AND SOFT TISSUES: No acute osseous lesion. Soft tissues are unremarkable. UPPER ABDOMEN: No free air under the diaphragm. IMPRESSION: Increased left mid and lower lung consolidation. Improved aeration in the right lung. Signed by: Paramjit Fitzpatrick MD on 08/27/2019 8:30 AM
[2019-08-27] MEDS: METOPROLOL TARTRATE 25 MG TAB PO SCH ×2 (08:39→16:25)
[2019-08-27] MEDS: ASCORBIC ACID 500 MG TAB PO SCH (08:39)
[2019-08-27] MEDS: AZITHROMYCIN 500MG/NS 250 ML 250 ML IV SCH (08:39)
[2019-08-27] MEDS: LISINOPRIL 20 MG TAB PO SCH (08:39)
[2019-08-27] MEDS: ZINC SULFATE 220 MG CAP PO SCH (08:39)
[2019-08-27] MEDS: DEXAMETHASONE SOD PHOS 10 MG/1 ML VIAL IV SCH (08:39)
[2019-08-27] MEDS: ENOXAPARIN SOD INJ 40 MG/0.4 ML SYR SC SCH ×2 (08:39→19:56)
[2019-08-27] MEDS: DEXMEDETOMIDINE 200MCG/NS 50ML 50 ML IV PRN ×3 (08:40→16:59)
[2019-08-27] MEDS: GUAIFENESIN/CODEINE 10 ML CUP PO PRN ×3 (08:54→21:04)
[2019-08-27 11:04] LABS: BAND NEUTROPHILS % (MANUAL) 1 %; LYMPHOCYTES % (MANUAL) 4 % (19-48); MONOCYTES % (MANUAL) 4 % (3.4-9.0); NEUTROPHILS % (MANUAL) 90 % (40-74); PLATELET ESTIMATE ADEQUATE; RBC MORPHOLOGY COMMENT NORMAL
--- NOTE | 2019-08-27 12:59 | Progress Note ---
DATE: SUBJECTIVE: The patient seen and evaluated. Available labs and notes reviewed. He states that he is doing much better. He is sitting at the edge of the bed. Appetite improved. OBJECTIVE: VITAL SIGNS: Temperature 97.8, pulse 75, respirations 24, and blood pressure 111/78. GENERAL: Alert and oriented, in no acute distress. The patient is currently on Vabomere and Precedex, and also non-rebreather. He seems to be comfortable. CV: S1, S2. CHEST: Equal expansion. Decreased breath sounds, in no acute distress. ABDOMEN: Soft. No tenderness. No distention. HEENT: Moist. No pallor. NECK: No JVD. EXTREMITIES: No significant edema, moves all. MEDICATIONS: Medication list reviewed. From ID point of view, the patient is on: 1. Vitamin C. 2. Dexamethasone. 3. Lovenox. 4. Zithromax. 5. Remdesivir. 6. Rocephin. LABORATORY STUDIES: White count of 8.52, hemoglobin 12.1, and platelets 188, improved from 127. Sodium 136, potassium 3.9, and creatinine of 0.68. MICROBIOLOGY: Urine culture, negative 48 hours from 08/24. Blood culture, negative 48 hours. IMAGING DATA: Chest x-ray showed increased left mid and lower lung consolidation, improved aeration in the right lung, but clinically the patient feels better and in no acute distress. ASSESSMENT AND PLAN: 1. COVID-19 infection. 2. Possible superimposed bacterial infection of the lungs. 3. Hypertension. 4. Electrolyte abnormalities. 5. Pain. Continue with the medications as mentioned above. Continue with Vabomere, and also on Precedex. Clinically, in no acute distress. Clinically, feels better and looks better. Please refer to chart for more information. Dictated by Chirag Moreno PA-C (Al) Andreea Maguire MD /MODL /[id number]
[2019-08-27] MEDS: REMDESIVIR 100MG/NS 100ML 100 MG in SODIUM CHLORIDE 0.9% 100 ML 100 ML IV SCH (14:54)
--- NOTE | 2019-08-27 15:29 | Progress Note ---
DATE: 08/27/2019 CHIEF COMPLAINT: Fever, cough, and shortness of breath. CONSULTANTS: 1. Dr. Maguire, Infectious Disease. 2. Dr. Lowry, [employer]. SUBJECTIVE: The patient is seen in ICU, sitting up in bed, currently on high-flow O2 via nasal cannula, saturating at 95%. He reports feeling better, less cough, and shortness of breath. Afebrile. Tachycardia has resolved. PHYSICAL EXAMINATION: VITAL SIGNS: Temperature 97.8, pulse is 75, respirations 24, blood pressure 111/78, and pulse ox is 95% on high-flow nasal cannula. GENERAL: No acute distress. HEENT: Normocephalic, atraumatic. NECK: Supple. LUNGS: Decreased breath sounds. CARDIOVASCULAR: Regular rate and rhythm. GI: Soft and nontender. NEUROLOGIC: Alert, awake, and oriented x3. MUSCULOSKELETAL: Moves all extremities. No edema. SKIN: Dry and intact. PSYCH: Calm. Reports having occasional hallucinations. LABORATORY DATA: WBC 8.52, hemoglobin 12.1, hematocrit 35.1, and platelet 188. Sodium 136, potassium 3.9. Creatinine 0.68. IMAGING: Chest x-ray shows increased left mid and lower lung consolidation, but improved aeration in the lungs. IMPRESSION: 1. Acute respiratory distress due to COVID-19 pneumonia. Continue Rocephin and azithromycin. Decadron. 2. albuterol and Mucinex as needed. 3. Hypertension. Continue metoprolol. 4. Hypoxia due to pneumonia with COVID-19. Currently, on high-flow nasal cannula, saturating 95%. We will continue to wean oxygen. 5. Deep vein thrombosis prophylaxis. On Lovenox. Further recommendation per business process modeler and ID. Dictated by SNEHAL Laguerre Taylor Aparicio MD MY/MODL /[id number]
[2019-08-27] MEDS: CEFTRIAXONE SOD 1 GM/NS 50 ML 50 ML IV SCH (16:25)
--- NOTE | 2019-08-27 17:25 | NUR ---
per dr pizano and dr ash, pt improving. eligible for downgrade from ICU. pt still on vapertherm 40%, in process of weaning
--- NOTE | 2019-08-27 19:14 | Progress Note ---
DATE: SUBJECTIVE: The patient is feeling slightly better. He is able to walk and go to the bowel movement. He still remains on Vapotherm at 40 L with 100% FiO2. Saturation is 100%. PHYSICAL EXAMINATION: VITAL SIGNS: Blood pressure is 121/75, pulse is 89. HEENT: Shows no facial swelling or erythema. CARDIAC: Reveals regular rate and rhythm with normal S1, S2. LUNGS: Auscultation of lungs reveals rhonchorous breath sounds bilaterally. There is no wheezing. ABDOMEN: Soft and nontender. There is no rebound or guarding. EXTREMITIES: Shows no leg edema or calf tenderness. There is no cyanosis or clubbing. SKIN: Shows no rashes. NEUROLOGICAL: Shows no focal abnormalities. LABORATORY DATA: BUN to creatinine ratio is normal. Other electrolytes are within normal limits. White blood cell count is 8.5, hemoglobin is 12.1, and the platelet count is 188. RADIOGRAPHIC DATA: Chest x-ray shows improved aeration in the right lung with some persistent left-sided consolidation. IMPRESSION: 1. Acute respiratory failure. 2. Viral pneumonia and COVID-19 infection. 3. Hypertension. PLAN: 1. Complete remdesivir. 2. Continue Vapotherm. 3. Dexamethasone. 4. Lovenox. MD SAMINA Angel/ANGELA /[id number]
[2019-08-28] VITALS (30 sets, daily range): BP systolic 99–143; BP diastolic 49–94
[2019-08-28] MEDS: ALBUTEROL SULFATE HFA 8GM INHALATION AEROSOL INH PRN
[2019-08-28] MEDS: GUAIFENESIN/CODEINE 10 ML CUP PO PRN ×2 (04:25→20:45)
[2019-08-28 05:37] LABS: BASOPHILS % 0.1 % (0.0-1.0); HEMATOCRIT 35.7 % (38.2-49.6); HEMOGLOBIN 12.3 g/dL (14.0-18.0); LYMPHOCYTES # (AUTO) 0.5 (1.0-3.2); LYMPHOCYTES % 4.5 % (18.0-39.1); MEAN CORPUSCULAR HEMOGLOBIN 29.5 pg (28-32); MEAN CORPUSCULAR HGB CONC 34.5 g/dL (31-35); MEAN CORPUSCULAR VOLUME 85.6 fL (81-99); MONOCYTES # (AUTO) 0.3 (0.2-0.8); MONOCYTES % 3.4 % (4.4-11.3); NEUTROPHILS # (AUTO) 9.1 (2.1-6.9); NEUTROPHILS % 90.9 % (38.7-80.0); PLATELET COUNT 218 x10e3/uL (140-360); RED BLOOD COUNT 4.17 x10e6/uL (4.3-5.7); RED CELL DISTRIBUTION WIDTH 11.9 % (11.7-14.4)
[2019-08-28 05:50] LABS: ALANINE AMINOTRANSFERASE 35 IU/L (0-55); ALBUMIN 2.6 g/dL (3.5-5.0); ALBUMIN/GLOBULIN RATIO 0.8 (0.8-2.0); ALKALINE PHOSPHATASE 54 IU/L (40-150); BLOOD UREA NITROGEN 20 mg/dL (7-26); BUN/CREATININE RATIO 29 (6-25); CALCIUM 8.6 mg/dL (8.4-10.2); CARBON DIOXIDE 25 mmol/L (22-29); CHLORIDE 104 mmol/L (98-107); EST GLOMERULAR FILTRATION RATE > 60 ML/MIN (60-); GLUCOSE 127 mg/dL (74-118); SODIUM 137 mmol/L (136-145)
[2019-08-28] MEDS: ASCORBIC ACID 500 MG TAB PO SCH (09:05)
[2019-08-28] MEDS: ENOXAPARIN SOD INJ 40 MG/0.4 ML SYR SC SCH ×2 (09:05→20:45)
[2019-08-28] MEDS: ZINC SULFATE 220 MG CAP PO SCH (09:05)
[2019-08-28] MEDS: DEXAMETHASONE SOD PHOS 10 MG/1 ML VIAL IV SCH (09:05)
--- NOTE | 2019-08-28 09:42 | Progress Note ---
DATE: SUBJECTIVE: The patient is on Vapotherm. He is still on 40 L with FiO2 of 100%. He complains of cough but is less dyspnea. PHYSICAL EXAMINATION: VITAL SIGNS: The blood pressure is 111/70, saturation is in the 90s, and his pulse is 76. HEENT: Shows no facial swelling or erythema. CARDIAC: Reveals regular rate and rhythm with normal S1 and S2. LUNGS: Auscultation of lungs reveals crackles at the bases. There is no wheezing. ABDOMEN: Soft and nontender. There is no rebound or guarding. EXTREMITIES: Shows no leg edema or calf tenderness. There is no cyanosis or clubbing. SKIN: Shows no rashes. NEUROLOGIC: Shows no focal abnormalities. IMPRESSION: 1. Acute respiratory failure. 2. COVID-19 infection and viral pneumonia. 3. Hypertension. PLAN: 1. Complete Remdesivir. 2. Continue Vapotherm. 3. Lovenox. 4. Complete dexamethasone. MD SAMINA Angel/ANGELA /[id number]
[2019-08-28] MEDS: AZITHROMYCIN 500MG/NS 250 ML 250 ML IV SCH (10:38)
[2019-08-28] MEDS: LISINOPRIL 20 MG TAB PO SCH (10:39)
[2019-08-28] MEDS: METOPROLOL TARTRATE 25 MG TAB PO SCH ×2 (10:39→17:39)
--- NOTE | 2019-08-28 10:47 | Progress Note ---
DATE: SUBJECTIVE: The patient is seen and evaluated. Available labs and notes reviewed. The patient is out of ICU, currently on 40 L of high flow at 100% saturation at 93%. Clinically no acute distress. OBJECTIVE: VITAL SIGNS: Temperature 97.6, fever resolved, pulse 76, respiration 26, blood pressure 111/77. GENERAL: Alert and oriented, in no acute distress on 4 L of high-flow at 100% with saturation of 93%. Seems to be alert and oriented. CV: S1, S2. CHEST: Decreased breath sounds. Equal expansion. ABDOMEN: Soft, nontender. HEENT: Moist. No pallor. No JVD. EXTREMITIES: Weak. Moves all. No significant edema. MEDICATIONS: Reviewed. The patient remains on zinc sulfate, ascorbic acid, dexamethasone Lovenox, Rocephin and remdesivir. LABORATORY STUDIES: White count of 10.01, hemoglobin 12.3, platelet 218. Sodium 137, potassium 4, creatinine 0.7. LFTs within normal limit. MICROBIOLOGY: No new microbiology studies available. Blood culture, urine culture negative on 08/23 and 08/24 respectively. IMAGING: No new radiology studies available. ASSESSMENT AND PLAN: 1. Coronavirus present on admission. 2. Superimposed bacterial pneumonia. 3. Hypertension. 4. Remains with shortness of breath. Overall no significant change. The patient is out of ICU. 5. Continue medication as above. Monitor the patient clinically. Follow with the labs. No obvious acute finding. Dictated by Chirag Moreno PA-C (Al) Andreea Maguire MD /MODL /[id number]
--- NOTE | 2019-08-28 11:39 | Diagnostic Imaging Report ---
EXAMINATION: CHEST SINGLE (PORTABLE) INDICATION: Pneumonia COMPARISON: Multiple prior chest radiograph, most recently 08/27/2019 FINDINGS: LINES/TUBES:EKG leads overlie the chest. LUNGS:The lungs are moderately inflated. Persistent but improved hazy left lower lung opacities. PLEURA:No pleural effusion or pneumothorax. MEDIASTINUM:The cardiomediastinal silhouette appears normal in size and shape. BONES/SOFT TISSUES:No acute osseous injury. ABDOMEN:No free air under the diaphragm. IMPRESSION: Persistent but improved hazy left lower lung opacities consistent with known pneumonia. Signed by: Farrah Pierson MD on 08/28/2019 11:36 AM
[2019-08-28 12:19] LABS: BAND NEUTROPHILS % (MANUAL) 1 %; LYMPHOCYTES % (MANUAL) 3 % (19-48); MONOCYTES % (MANUAL) 3 % (3.4-9.0); NEUTROPHILS % (MANUAL) 92 % (40-74)
[2019-08-28] MEDS: REMDESIVIR 100MG/NS 100ML 100 MG in SODIUM CHLORIDE 0.9% 100 ML 100 ML IV SCH (14:31)
--- NOTE | 2019-08-28 14:34 | Progress Note ---
DATE: 08/28/2019 CHIEF COMPLAINT: Shortness of breath, fever, cough. CONSULTANTS: 1. Dr. Maguire with Infectious Disease. 2. Dr. Lowry, Trim Setter. SUBJECTIVE: The patient is seen in the ICU, appears to be more fatigued and short of breath today. Still on high-flow O2 via nasal cannula and on nonrebreather mask. He reports shortness of breath, tachypneic. PHYSICAL EXAMINATION: VITAL SIGNS: Temperature 97.6, pulse is 76, respirations 26, blood pressure , pulse ox is 87% on nasal cannula non-rebreather. GENERAL: Fatigue. HEENT: Normocephalic, atraumatic. NECK: Supple. LUNGS: Decreased breath sounds. CARDIOVASCULAR: Regular rate and rhythm. GI: Soft and nontender. NEUROLOGIC: Alert, awake, oriented x3. MUSCULOSKELETAL: Moves all extremities. No edema. SKIN: Dry. LABORATORY DATA: WBC 10.01, hemoglobin 12.3, hematocrit 35.7, platelet is 218. Sodium 137, potassium 4.0, BUN is 20, creatinine 0.70, estimated GFR greater than 60. IMAGING: Chest x-ray, persistent but improved . IMPRESSION: 1. Acute respiratory distress due to COVID-19 pneumonia. Continue Rocephin, azithromycin, Decadron, vitamin C and zinc sulfate. Albuterol as needed. 2. Hypertension. Continue metoprolol. 3. Hypoxia due to pneumonia with COVID-19. Continue high-flow nasal cannula and non-rebreather mask. 4. Deep vein thrombosis prophylaxis on Lovenox b.i.d. PLAN: Continue close monitoring in the ICU, O2 via nasal cannula and non-rebreather mask. Further recommendations per ID . Dictated by SNEHAL Laguerre Taylor Aparicio MD MY/MODL /[id number]
[2019-08-28] MEDS: CEFTRIAXONE SOD 1 GM/NS 50 ML 50 ML IV SCH (15:51)
[2019-08-28] MEDS: DEXMEDETOMIDINE 200MCG/NS 50ML 50 ML IV PRN ×2 (19:00)
[2019-08-29] VITALS (14 sets, daily range): BP systolic 71–146; BP diastolic 48–86
[2019-08-29] MEDS: DEXMEDETOMIDINE 200MCG/NS 50ML 50 ML IV PRN ×2 (02:00→06:30)
--- NOTE | 2019-08-29 05:21 | Diagnostic Imaging Report ---
EXAMINATION: CHEST SINGLE (PORTABLE) INDICATION: ^resp failure COMPARISON: 08/28/2019 FINDINGS: AP view TUBES and LINES: None. LUNGS: Improved aeration of the lungs with interval decreased left lower lobe airspace disease. PLEURA: No pleural effusion or pneumothorax. HEART AND MEDIASTINUM: The cardiomediastinal silhouette is unchanged. BONES AND SOFT TISSUES: No acute osseous lesion. Soft tissues are unremarkable. UPPER ABDOMEN: No free air under the diaphragm. IMPRESSION: Improved aeration of the lungs with decreased left lower lobe airspace disease. Signed by: Nader Duran MD on 08/29/2019 5:18 AM
[2019-08-29 07:15] LABS: BASOPHILS % 0.2 % (0.0-1.0); HEMATOCRIT 35.7 % (38.2-49.6); HEMOGLOBIN 12.2 g/dL (14.0-18.0); LYMPHOCYTES # (AUTO) 0.5 (1.0-3.2); LYMPHOCYTES % 4.6 % (18.0-39.1); MEAN CORPUSCULAR HEMOGLOBIN 29.5 pg (28-32); MEAN CORPUSCULAR HGB CONC 34.2 g/dL (31-35); MEAN CORPUSCULAR VOLUME 86.2 fL (81-99); MONOCYTES # (AUTO) 0.2 (0.2-0.8); MONOCYTES % 1.5 % (4.4-11.3); NEUTROPHILS # (AUTO) 10.2 (2.1-6.9); NEUTROPHILS % 92.3 % (38.7-80.0); PLATELET COUNT 179 x10e3/uL (140-360); RED BLOOD COUNT 4.14 x10e6/uL (4.3-5.7); RED CELL DISTRIBUTION WIDTH 11.9 % (11.7-14.4)
[2019-08-29 07:35] LABS: ALANINE AMINOTRANSFERASE 35 IU/L (0-55); ALBUMIN 2.4 g/dL (3.5-5.0); ALBUMIN/GLOBULIN RATIO 0.8 (0.8-2.0); ALKALINE PHOSPHATASE 52 IU/L (40-150); BLOOD UREA NITROGEN 20 mg/dL (7-26); BUN/CREATININE RATIO 26 (6-25); CARBON DIOXIDE 25 mmol/L (22-29); CHLORIDE 103 mmol/L (98-107); CREATININE, SERUM 0.77 mg/dL (0.72-1.25); EST GLOMERULAR FILTRATION RATE > 60 ML/MIN (60-); GLUCOSE 99 mg/dL (74-118); SODIUM 136 mmol/L (136-145)
[2019-08-29] MEDS: LISINOPRIL 20 MG TAB PO SCH (09:00)
[2019-08-29] MEDS: METOPROLOL TARTRATE 25 MG TAB PO SCH ×2 (09:00→17:00)
[2019-08-29] MEDS ORDERED: FUROSEMIDE INJ 10 MG/ML 2 ML VIAL IV SCH (09:00)
--- NOTE | 2019-08-29 09:02 | Progress Note ---
DATE: Pulmonary Critical Care Progress Note SUBJECTIVE: The patient was placed in the prone position last night and his saturations improved. He is now back on the supine position. He remains on a Vapotherm at 40 L with am FiO2 of 100%. He is saturating in the low 90s, but his respiratory rate is 20 to 30 and he does not appear to be in distress. PHYSICAL EXAMINATION: VITAL SIGNS: The blood pressure is 110/60 with a pulse rate of 88. T-max is 100.8, and the respiratory rate is 20 to 30. HEENT: Shows no facial swelling or erythema. CARDIAC: Reveals regular rate and rhythm with normal S1, S2. LUNGS: Auscultation of lungs reveals crackles at the bases. There is no wheezing. ABDOMEN: Soft and nontender. There is no rebound or guarding. EXTREMITIES: Shows no leg edema or calf tenderness. There is no cyanosis or clubbing. SKIN: Shows no rashes. NEUROLOGIC: Shows no focal abnormalities. LABORATORY DATA: White blood cell count is 11 and hemoglobin is 12.2. The platelet count is 179. BUN to creatinine ratio is 20 to 0.77. The other electrolytes are within normal limits. The albumin is 2.4. RADIOGRAPHIC DATA: Chest x-ray shows improved aeration in the lungs with decreased at the left lower lobe airspace disease. IMPRESSION: 1. Acute respiratory failure. 2. Viral pneumonia and COVID-19 infection. 3. Hypertension. PLAN: 1. Continue Vapotherm. 2. Placed the patient in prone position as tolerated. 3. Low-dose Lasix and echocardiogram. 4. Continue current antibiotics. 5. Continue Precedex. 6. Complete remdesivir. 7. Continue Lovenox twice daily. Greater than 35 minutes in direct critical care time. Case discussed with nursing staff, Respiratory, the patient, Infectious Disease, and Internal Medicine. Maximilian Lowry MD [facility]/MODL /[id number]
[2019-08-29] MEDS: ASCORBIC ACID 500 MG TAB PO SCH (11:39)
[2019-08-29] MEDS: AZITHROMYCIN 500MG/NS 250 ML 250 ML IV SCH (11:39)
[2019-08-29] MEDS: ZINC SULFATE 220 MG CAP PO SCH (11:39)
[2019-08-29] MEDS: ENOXAPARIN SOD INJ 40 MG/0.4 ML SYR SC SCH ×2 (11:39→20:45)
[2019-08-29] MEDS: DEXAMETHASONE SOD PHOS 10 MG/1 ML VIAL IV SCH (11:39)
[2019-08-29] MEDS ORDERED: MIDAZOLAM HCL 2 MG/2 ML VIAL ONE ×2 (12:29→14:31)
[2019-08-29] MEDS ORDERED: MIDAZOLAM HCL 5MG/ML 10ML VIAL 100 ML IV ONE (12:30)
[2019-08-29] MEDS ORDERED: SODIUM CHLORIDE 0.9% 1000ML 1,000 ML ONE (12:41)
--- NOTE | 2019-08-29 12:59 | Operative Report ---
DATE OF PROCEDURE: SURGEON: Maximilian Lowry MD PROCEDURE: Endotracheal intubation with GlideScope. PREOPERATIVE DIAGNOSIS: Respiratory failure. POSTOPERATIVE DIAGNOSIS: Respiratory failure. CONSENT: Consent was obtained from the patient. MEDICATIONS: Versed 2 mg, succinylcholine 120 mg, and etomidate 20 mg. DESCRIPTION OF PROCEDURE: The patient was on a Vapotherm with saturations in the low 80s prior to the procedure. an Ambu bag with the oral airway and a PEEP valve were used to increase his oxygen saturation into the low 90s. A 3-0 Mac blade was then used to visualize the glottis. An 8.0 tube was passed through the cords on the first attempt. There was good CO2 return and equal breath sounds bilaterally. The oxygen saturations fell into the high 70s following intubation, but increased back to the low 90s with ventilation through an Ambu bag. The patient remained hemodynamically stable. COMPLICATIONS: None. ESTIMATED BLOOD LOSS: None. Maximilian Lowry MD [facility]/REYESL /[id number]
[2019-08-29] MEDS ORDERED: MIDAZOLAM HCL 5MG/ML 10ML VIAL 100 ML IV PRN (13:00)
[2019-08-29] MEDS ORDERED: MIDAZOLAM HCL 2 MG/2 ML VIAL IV SCH (13:10)
[2019-08-29] MEDS ORDERED: VECURONIUM BROMIDE FOR INJ 20 MG VIAL IV STA (13:30)
[2019-08-29] MEDS ORDERED: VECURONIUM BROMIDE FOR INJ 20 MG VIAL ONE (14:31)
[2019-08-29] MEDS ORDERED: ETOMIDATE 40 MG/ 20ML VIAL IV ONE (14:31)
[2019-08-29] MEDS ORDERED: WATER STERILE 10 ML VIAL ONE (14:31)
[2019-08-29] MEDS ORDERED: SUCCINYLCHOLINE CHLORIDE 20 MG/ML 10ML VIAL ONE (14:31)
--- NOTE | 2019-08-29 15:35 | Operative Report ---
DATE OF PROCEDURE: SURGEON: Maximilian Lowry MD PROCEDURE: Arterial line placement under ultrasound guidance. PREOPERATIVE DIAGNOSES: coronavirus disease-19 and respiratory failure. POSTOPERATIVE DIAGNOSES: coronavirus disease-19 and respiratory failure. CONSENT: Consent was obtained from the patient. MEDICATIONS: A 1% lidocaine for local anesthesia. DESCRIPTION OF PROCEDURE: The patient was in the supine position. The right wrist was prepped sterilely. The ultrasound was used with a sterile probe cover. The right radial artery was located. His right radial artery was cannulated under direct visualization with a 20-gauge needle. A wire was passed through the needle and a 20-gauge catheter was passed over the wire. There was good blood return with the arterial pulsations. COMPLICATIONS: None. ESTIMATED BLOOD LOSS: None. Maximilian Lowry MD [facility]/MODL /[id number]
--- NOTE | 2019-08-29 15:56 | Diagnostic Imaging Report ---
EXAMINATION: CHEST SINGLE (PORTABLE) INDICATION: ^INTUBATED ^[id number] ^1430 COMPARISON: 08/29/2019 4:56 AM FINDINGS: AP view TUBES and LINES: Interval intubation with endotracheal tube overlying the mid trachea, 4 cm above the fred. New infradiaphragmatic NG/OG tube. Tip not included in the [id number]. LUNGS: Lungs are well inflated. Unchanged mild left lower lobe reticular opacity. No new consolidations. PLEURA: No pleural effusion or pneumothorax. HEART AND MEDIASTINUM: The cardiomediastinal silhouette is unremarkable.. BONES AND SOFT TISSUES: No acute osseous lesion. Soft tissues are unremarkable. UPPER ABDOMEN: No free air under the diaphragm. IMPRESSION: Interval intubation, which is in adequate position. New infradiaphragmatic NG/OG tube. Stable left lower lobe reticular consolidation. Signed by: Dr. Mary Anne Garrett M.D. on 08/29/2019 3:53 PM
--- NOTE | 2019-08-29 15:59 | Diagnostic Imaging Report ---
EXAM: Abdomen 1 Views INDICATION: ^NG PLACMENT COMPARISON: None FINDINGS: Lines/tubes: Infradiaphragmatic NG/OG tube with tip overlying the distal gastric body/duodenum. Mild amount of stool in the colon in the visualized upper abdomen. No dilated loops of small bowel. No renal calculi. No abnormal soft tissue masses. No degenerative changes in the lumbar spine and pelvis. Bibasilar consolidations are unchanged. IMPRESSION: NG/OG tube with tip overlying the distal gastric body/duodenum. Signed by: Dr. Mary Anne Garrett M.D. on 08/29/2019 3:56 PM
--- NOTE | 2019-08-29 17:12 | Diagnostic Imaging Report ---
EXAMINATION: CHEST XRAY LINE PLACEMENT INDICATION: ^PICC line placement ^[id number] ^1620 COMPARISON: 08/29/2019 1502 p.m. FINDINGS: AP view TUBES and LINES: Interval placement of a left PICC with tip overlying the cubital junction. Endotracheal and NG/OG tubes remain stable. LUNGS: Lungs are well inflated. Worsening bilateral reticular nodular opacities. PLEURA: No pleural effusion or pneumothorax. HEART AND MEDIASTINUM: Stable mild enlargement of the cardiac silhouette. BONES AND SOFT TISSUES: No acute osseous lesion. Soft tissues are unremarkable. UPPER ABDOMEN: No free air under the diaphragm. IMPRESSION: New left PICC with tip overlying the cubital junction. No pneumothorax. Worsening alveolar and reticular opacities which may represent a combination of worsening multifocal pneumonia and superimposed pulmonary edema. Signed by: Dr. Mary Anne Garrett M.D. on 08/29/2019 5:09 PM
[2019-08-29] MEDS: REMDESIVIR 100MG/NS 100ML 100 MG in SODIUM CHLORIDE 0.9% 100 ML 100 ML IV SCH (18:03)
[2019-08-29] MEDS: CEFTRIAXONE SOD 1 GM/NS 50 ML 50 ML IV SCH (18:03)
[2019-08-29 18:04] LABS: ABG HCO3 28 mmol/L (22-26); ABG PCO2 66 mmHg (35-45); ABG PH 7.24 (7.35-7.45); ABG PO2 359 mmHg (80-105)
--- NOTE | 2019-08-29 20:56 | Progress Note ---
DATE: 08/29/2019 CHIEF COMPLAINT: Shortness of breath, fever, and cough. CONSULTANTS: 1. Dr. Maguire with Infectious Disease. 2. Dr. Lowry, costume technician. SUBJECTIVE: The patient was seen in the ICU due to hypoxia when intubated. He was saturating in the low 80s on high-flow O2. PHYSICAL EXAMINATION: VITAL SIGNS: Temperature 99.0, pulse 96, respirations 28, blood pressure 111/72, and pulse ox 97% on the vent. GENERAL: Sedated and intubated. LUNGS: With decreased breath sounds. CARDIOVASCULAR: Regular rate and rhythm. Tachycardic at times. GI: Soft and nontender. NEUROLOGIC: Sedated. MUSCULOSKELETAL: No edema. SKIN: Dry. LABORATORY DATA: WBC 11.0, hemoglobin 12.2, hematocrit 35.7, and platelet 179. Sodium 136, potassium 4.0, creatinine 0.77, and estimated GFR greater than 60. Chest x-ray improved aeration of the lungs with decreased left lower lobe airspace disease. ASSESSMENT: 1. Acute respiratory failure due to COVID-19 pneumonia. Continue on Rocephin, azithromycin, and Decadron, was intubated due to hypoxia. 2. Hypertension. Continue metoprolol. 3. Mild leukocytosis. Continue on IV antibiotics. 4. Deep vein thrombosis prophylaxis. On Lovenox b.i.d. PLAN: Intubated per costume technician. Vent management per costume technician. Continue supportive care. Dictated by SNEHAL Laguerre Taylor Aparicio MD MY/MODL /[id number]
[2019-08-29] MEDS: PROPOFOL IV EMULSION 10MG/ML 100 ML IV PRN (22:30)
[2019-08-29] MEDS: MIDAZOLAM HCL 5MG/ML 10ML VIAL 100 ML IV PRN (22:30)
[2019-08-30] VITALS (12 sets, daily range): BP systolic 92–154; BP diastolic 43–84
[2019-08-30] MEDS: ROCURONIUM BROMIDE 250 MG in SODIUM CHLORIDE 0.9% 250ML 225 ML IV PRN (00:45)
[2019-08-30] MEDS: MIDAZOLAM HCL 5MG/ML 10ML VIAL 100 ML IV PRN ×3 (04:00→22:45)
[2019-08-30] MEDS: PROPOFOL IV EMULSION 10MG/ML 100 ML IV PRN ×3 (04:30→22:15)
[2019-08-30 06:16] LABS: BASOPHILS % 0.2 % (0.0-1.0); HEMATOCRIT 36.9 % (38.2-49.6); LYMPHOCYTES # (AUTO) 0.3 (1.0-3.2); LYMPHOCYTES % 1.6 % (18.0-39.1); MEAN CORPUSCULAR HEMOGLOBIN 29.3 pg (28-32); MEAN CORPUSCULAR HGB CONC 32.5 g/dL (31-35); MONOCYTES # (AUTO) 0.2 (0.2-0.8); MONOCYTES % 1.4 % (4.4-11.3); NEUTROPHILS # (AUTO) 15.5 (2.1-6.9); NEUTROPHILS % 95.6 % (38.7-80.0); PLATELET COUNT 154 x10e3/uL (140-360); RED CELL DISTRIBUTION WIDTH 12.2 % (11.7-14.4)
[2019-08-30 06:57] LABS: ALANINE AMINOTRANSFERASE 35 IU/L (0-55); ALBUMIN 2.2 g/dL (3.5-5.0); ALBUMIN/GLOBULIN RATIO 0.6 (0.8-2.0); ALKALINE PHOSPHATASE 57 IU/L (40-150); ANION GAP 11.5 mmol/L (8-16); BLOOD UREA NITROGEN 20 mg/dL (7-26); BUN/CREATININE RATIO 30 (6-25); CALCIUM 8.3 mg/dL (8.4-10.2); CARBON DIOXIDE 29 mmol/L (22-29); CHLORIDE 104 mmol/L (98-107); CREATININE, SERUM 0.67 mg/dL (0.72-1.25); EST GLOMERULAR FILTRATION RATE > 60 ML/MIN (60-); GLUCOSE 134 mg/dL (74-118); POTASSIUM 4.5 mmol/L (3.5-5.1); SODIUM 140 mmol/L (136-145)
--- NOTE | 2019-08-30 06:58 | Diagnostic Imaging Report ---
EXAMINATION: CHEST SINGLE (PORTABLE) INDICATION: ^resp failure COMPARISON: 08/29/2019 FINDINGS: AP view TUBES and LINES: Unchanged endotracheal tube, left upper extremity PICC, and nasogastric tube. LUNGS: Mild interval decrease in patchy airspace disease within both lungs. PLEURA: No pleural effusion or pneumothorax. HEART AND MEDIASTINUM: The cardiomediastinal silhouette is unchanged. BONES AND SOFT TISSUES: No acute osseous lesion. Soft tissues are unremarkable. UPPER ABDOMEN: No free air under the diaphragm. IMPRESSION: Mild interval decrease in bilateral pulmonary airspace disease. Signed by: Nader Duran MD on 08/30/2019 6:54 AM
[2019-08-30] MEDS: ASCORBIC ACID 500 MG TAB PO SCH ×2 (09:00→17:22)
[2019-08-30] MEDS: METOPROLOL TARTRATE 25 MG TAB PO SCH ×2 (09:00→17:00)
[2019-08-30] MEDS: AZITHROMYCIN 500MG/NS 250 ML 250 ML IV SCH (09:00)
[2019-08-30] MEDS: ENOXAPARIN SOD INJ 40 MG/0.4 ML SYR SC SCH ×2 (09:00→21:00)
[2019-08-30] MEDS: ZINC SULFATE 220 MG CAP PO SCH (09:00)
[2019-08-30] MEDS: DEXAMETHASONE SOD PHOS 10 MG/1 ML VIAL IV SCH (09:00)
--- NOTE | 2019-08-30 09:23 | Progress Note ---
DATE: Pulmonary Critical Care Progress Note SUBJECTIVE: The patient is now intubated. He required intubation yesterday. He is currently on rocuronium as well as Versed. He has an enteral feeding tube and is receiving enteral feedings. He is on a PRVC mode of ventilation with a tidal volume of 420 and FiO2 of 80%, and a PEEP of 16 and respiratory rate of 24. PHYSICAL EXAMINATION: VITAL SIGNS: The blood pressure is 97/50 and saturation is now 99% on the above settings. His pulse is 96. HEENT: Shows an oral endotracheal tube. He has an arterial line in place. He has an NG tube. He also has a PICC line. CARDIAC: Reveals regular rate and rhythm with normal S1 and S2. LUNGS: Auscultation of lungs reveals crackles at the bases. There is no wheezing. ABDOMEN: Soft and nontender. There is no rebound or guarding. EXTREMITIES: Shows no leg edema or calf tenderness. There is no cyanosis or clubbing. SKIN: Shows no rashes. NEUROLOGICAL: Shows the patient to be sedated. LABORATORY DATA: White blood cell count is 16.2 and the hemoglobin is 12. The platelet count is 154. The BUN to creatinine ratio is 20 to 0.67 and the albumin is 2.2. RADIOGRAPHIC DATA: Shows slight improvement in the bilateral airspace disease. IMPRESSION: 1. Acute respiratory failure. 2. Viral pneumonia and COVID-19 infection. 3. Hypertension. PLAN: 1. Continue current ventilator settings and repeat ABG. 2. Continue Versed and stop rocuronium. 3. Continue Lovenox. 4. Continue dexamethasone. 5. The patient has completed remdesivir. 6. Enteral feedings. 7. Monitor blood pressure. 8. Continue to follow BUN, creatinine, and labs. 9. Case discussed with nursing staff, Respiratory, Infectious Disease, and Internal Medicine. Greater than 35 minutes in direct critical care time. Maximilian Lowry MD [facility]/ANGELA /[id number]
[2019-08-30 09:39] LABS: ABG HCO3 26 mmol/L (22-26); ABG PCO2 59 mmHg (35-45); ABG PH 7.24 (7.35-7.45); ABG PO2 318 mmHg (80-105)
[2019-08-30 09:50] LABS: LYMPHOCYTES % (MANUAL) 2 % (19-48); MONOCYTES % (MANUAL) 2 % (3.4-9.0); NEUTROPHILS % (MANUAL) 96 % (40-74); PLATELET ESTIMATE ADEQUATE; PLATELET MORPHOLOGY COMMENT NORMAL; RBC MORPHOLOGY COMMENT NORMAL
[2019-08-30] MEDS ORDERED: PROPOFOL IV EMULSION 10MG/ML 100ML BTL ONE (12:00)
--- NOTE | 2019-08-30 13:16 | NUR ---
Nutrition Intervention Note RD Recommendation(s) for Physician: Incrcrease Jevity 1.2 to goal rate 60ml/hr via NDT Plan of Care: RD following, monitoring for tolerance and adequacy Nutrition reason for involvement: LOS now orally intubated and on EN via NDT RD Assessment Initial encounter with patient. Pt is sedated and orally intubated. Pt was not able to provide a nutrition Hx at the time of visit. Unable to observe oral cavity or perform a nutrition focused physical exam. Jevity 1.2 infusing at 20ml hr with a goal of 50ml/hr. Propofol provides 1.1kcal/ml EN provides 576 kcals, 26.64g of protein, and 387.36ml of free H2O Principal Problems/Diagnoses: CoVID 19 pneumonia PMH:No significant medical Hx, overweight/obesity GI: soft Skin: Intact Labs: 08/30/2019) biochemical data reviewed Meds: (08/30/2019) propofol, vitamin C, zinc sulfate Ht:67 in. Wt:200.44lbs BMI:31.4kg/M2 IBW:148 lbs Malnutrition Evaluation (08/30/2019) The patient does not meet criteria for a specified degree of malnutrition at this time. Will re-evaluate at follow-up as appropriate. Nutrition Prescription (Diet Order): NPO. Jevity 1.2 at 50ml/hr via NDT Estimated Nutritional Needs: 2272 calories/day ( kcal/kg/BW) 90.9-136g protein/day ( g pro/kg/ {CBW, IBW, UBW, Adjusted BW, Dry BW, etc.}) Diet Adequacy: Not meeting calorie needs, Not meeting protein needs Diet Education Needs Assessment: Diet education not indicated. Nutrition Care Level: High Nutrition Diagnosis: Swallowing difficulty related to impaired movement of fod/liquids from within the oral cavity to the stomach as evidenced by respiratory failure S/P ET tube. Goal: Patient will meet 75-100% of estimated needs by follow up Progress: (Progressing) Interventions: Commercial food, Composition, Rate, Route, IVF, Prescription medications, Multivitamin/mineral supplements Monitoring/Evaluation: Total energy intake, Total protein intake, Formula/Solution, IVF, Prescription medication, Weight change. Signed: Hemanth Leblanc RD, LD, CNSC
[2019-08-30] MEDS: CEFTRIAXONE SOD 1 GM/NS 50 ML 50 ML IV SCH (17:05)
[2019-08-30 17:45] LABS: ABG PCO2 57 mmHg (35-45); ABG PH 7.32 (7.35-7.45); ABG PO2 70 mmHg (80-105)
[2019-08-30 17:46] LABS: ABG HCO3 29 mmol/L (22-26)
--- NOTE | 2019-08-30 20:39 | Progress Note ---
DATE: 08/30/2019 CONSULTANTS: 1. Dr. Lowry, Vacuum Conditioner Operator. 2. Dr. Maguire with Infectious Disease. CHIEF COMPLAINT: Shortness of breath, fever, and cough. SUBJECTIVE: The patient remains intubated in the ICU, heart rate elevated, sedated. PHYSICAL EXAMINATION: VITAL SIGNS: Temperature 99.7, pulse is 123, respirations 34, blood pressure 92/43, pulse ox is 98% on the vent. GENERAL: Intubated and sedated. LUNGS: Decreased breath sounds. CARDIOVASCULAR: Tachycardic in the 110s and 120s. GI: Soft and nontender. NEUROLOGIC: Sedated. MUSCULOSKELETAL: No edema. SKIN: Dry. LABORATORY DATA: WBC 16.23, hemoglobin 12.0, hematocrit 36.9, platelets 154. Sodium 140, potassium 4.5, BUN is 20, creatinine 0.67, estimated GFR is greater than 60, blood glucose 137, calcium 8.3. Chest x-ray, mild interval decrease in bilateral pulmonary airspace disease. ABGs, pH 7.32, pCO2 is 59, PO2 is 318, bicarb 26, O2 saturation 100. ABG base -2, FiO2 of 95. IMPRESSION: 1. Acute respiratory failure due to COVID-19 pneumonia. Intubated on sedation. Continue Rocephin and azithromycin. Decadron daily, vent management per Pulmonary. 2. Leukocytosis, WBC is 16.23. Chest x-ray noted. Continue Rocephin and azithromycin per ID. 3. Hypertension, continue metoprolol. 4. Deep venous thrombosis prophylaxis, on Lovenox b.i.d. 5. Tachycardia, on metoprolol, we will consult Cardiology. PLAN: Continue supportive management, IV antibiotics, and enteral feeding. Dictated by SNEHAL Laguerre Taylor Aparicio MD MY/MODL /[id number]
[2019-08-31] VITALS (13 sets, daily range): BP systolic 86–124; BP diastolic 47–60
[2019-08-31] MEDS: ROCURONIUM BROMIDE 250 MG in SODIUM CHLORIDE 0.9% 250ML 225 ML IV PRN ×4 (00:09→21:45)
[2019-08-31] MEDS: PROPOFOL IV EMULSION 10MG/ML 100 ML IV PRN ×3 (02:12→22:00)
[2019-08-31] MEDS: MIDAZOLAM HCL 5MG/ML 10ML VIAL 100 ML IV PRN ×3 (03:00→21:45)
[2019-08-31 06:31] LABS: BASOPHILS % 0.1 % (0.0-1.0); HEMATOCRIT 33.3 % (38.2-49.6); HEMOGLOBIN 10.8 g/dL (14.0-18.0); LYMPHOCYTES # (AUTO) 0.3 (1.0-3.2); LYMPHOCYTES % 1.9 % (18.0-39.1); MEAN CORPUSCULAR HEMOGLOBIN 29.3 pg (28-32); MEAN CORPUSCULAR HGB CONC 32.4 g/dL (31-35); MEAN CORPUSCULAR VOLUME 90.5 fL (81-99); MONOCYTES # (AUTO) 0.3 (0.2-0.8); MONOCYTES % 2.4 % (4.4-11.3); NEUTROPHILS # (AUTO) 13.1 (2.1-6.9); NEUTROPHILS % 94.2 % (38.7-80.0); PLATELET COUNT 204 x10e3/uL (140-360); RED BLOOD COUNT 3.68 x10e6/uL (4.3-5.7); RED CELL DISTRIBUTION WIDTH 12.3 % (11.7-14.4)
[2019-08-31 07:01] LABS: ALANINE AMINOTRANSFERASE 37 IU/L (0-55); ALBUMIN/GLOBULIN RATIO 0.7 (0.8-2.0); ALKALINE PHOSPHATASE 52 IU/L (40-150); ANION GAP 10.7 mmol/L (8-16); BLOOD UREA NITROGEN 20 mg/dL (7-26); BUN/CREATININE RATIO 29 (6-25); CALCIUM 7.9 mg/dL (8.4-10.2); CARBON DIOXIDE 29 mmol/L (22-29); CHLORIDE 106 mmol/L (98-107); CREATININE, SERUM 0.69 mg/dL (0.72-1.25); EST GLOMERULAR FILTRATION RATE > 60 ML/MIN (60-); GLUCOSE 135 mg/dL (74-118); POTASSIUM 4.7 mmol/L (3.5-5.1); SODIUM 141 mmol/L (136-145)
[2019-08-31 07:38] LABS: ABG HCO3 31 mmol/L (22-26); ABG PCO2 40 mmHg (35-45); ABG PO2 159 mmHg (80-105)
[2019-08-31] MEDS ORDERED: FENTANYL CITRATE INJ 2,000 MCG in SODIUM CHLORIDE 0.9% 250ML 210 ML IV PRN (08:30)
[2019-08-31] MEDS ORDERED: FENTANYL 2000MCG/NS 250 250 ML ONE (08:37)
[2019-08-31] MEDS: METOPROLOL TARTRATE 25 MG TAB PO SCH ×2 (09:00→17:00)
[2019-08-31] MEDS: ZINC SULFATE 220 MG CAP PO SCH (09:25)
[2019-08-31] MEDS: DEXAMETHASONE SOD PHOS 10 MG/1 ML VIAL IV SCH (09:25)
[2019-08-31] MEDS: ASCORBIC ACID 500 MG TAB PO SCH ×2 (09:25→17:31)
[2019-08-31] MEDS: ENOXAPARIN SOD INJ 40 MG/0.4 ML SYR SC SCH (09:25)
[2019-08-31] MEDS: AZITHROMYCIN 500MG/NS 250 ML 250 ML IV SCH (09:25)
[2019-08-31] MEDS ORDERED: NOREPINEPHRINE 8 MG/D5W 250 ML 250 ML IV SCH (10:00)
[2019-08-31 10:17] LABS: LYMPHOCYTES % (MANUAL) 2 % (19-48); MONOCYTES % (MANUAL) 2 % (3.4-9.0); NEUTROPHILS % (MANUAL) 96 % (40-74); PLATELET ESTIMATE ADEQUATE; PLATELET MORPHOLOGY COMMENT NORMAL; RBC MORPHOLOGY COMMENT NORMAL
--- NOTE | 2019-08-31 11:01 | Progress Note ---
DATE: Pulmonary Critical Care Progress Note SUBJECTIVE: The patient is now in the prone position. He is on a PRVC mode of ventilation at a rate of 28 with a PEEP of 10 and FiO2 of 55%. His tidal volume was decreased to 430. He has borderline low blood pressures and we will begin Levophed. He is now on Versed at 6 mg along with fentanyl at 20 mg and rocuronium at 0.08. PHYSICAL EXAMINATION: VITAL SIGNS: The blood pressure is 95/40, saturation is 100% on the above settings. HEENT: Shows no facial swelling or erythema. There is an oral endotracheal tube in place. LYMPHATIC: Shows no submandibular, cervical or supraclavicular adenopathy. CARDIAC: Reveals regular rate and rhythm with normal S1 and S2. LUNGS: Auscultation of the lungs reveals crackles at the bases. There is no wheezing. ABDOMEN: Soft and nontender. There is no rebound or guarding. EXTREMITIES: Shows no leg edema or calf tenderness. There is no cyanosis or clubbing. SKIN: Shows no rashes. NEUROLOGICAL: Shows no focal abnormalities. The patient is sedated and on rocuronium. LABORATORY DATA: White blood cell count is 13.9 and hemoglobin is 10.8. The platelet count is 204. BUN to creatinine ratio is 20 to 0.69. Other electrolytes are within normal limits. Albumin is 2. RADIOGRAPHIC DATA: Chest x-ray shows a mild interval decrease in pulmonary airspace disease. IMPRESSION: 1. Acute respiratory failure. 2. Viral pneumonia and COVID-19 infection. 3. Hypertension. 4. Anemia, unspecified. 5. Hypoalbuminemia. PLAN: 1. Continue ventilation in the prone position for now. 2. Decrease minute ventilation and repeat ABG. 3. Continue dexamethasone. 4. The patient will begin low-dose Levophed. 5. Begin fentanyl and stop propofol. 6. Continue Lovenox. 7. Attempt to wean off rocuronium once the patient is in supine position. 8. Case discussed with nursing staff, Respiratory, Infectious Disease, and family. Greater than 35 minutes in direct critical care time. MD SAMINA Angel/ANGELA /[id number]
--- NOTE | 2019-08-31 15:47 | Progress Note ---
DATE: 08/31/2019 CONSULTANTS: 1. Dr. Lowry, [employer]we[employer]. 2. Dr. Maguire with Infectious Disease. 3. Dr. Casas with Cardiology. CHIEF COMPLAINT: Shortness of breath, fever, and cough. SUBJECTIVE: The patient is seen in ICU, remains intubated, is sedated and prone position. Heart rate is improved today to 102, saturating 100% on vent, fever 100.1. PHYSICAL EXAMINATION: VITAL SIGNS: Temperature 100.1, pulse is 99, respirations 37, blood pressure 86/47, and pulse ox is 100% on the vent. GENERAL: Intubated, sedated. LUNGS: Decreased breath sounds. CARDIOVASCULAR: Tachycardia, regular rate. GI: Soft and nontender. NEUROLOGIC: Sedated. MUSCULOSKELETAL: No edema. SKIN: Dry. LABORATORY DATA: WBCs 13.92, hemoglobin 10.8, hematocrit 33.3, and platelets 204. Sodium 141, potassium 4.7, BUN 20, creatinine 0.69, and estimated GFR greater than 60. AST 23 and ALT 37. IMAGING DATA: Chest x-ray, mild interval decrease in bilateral pulmonary airspace disease. IMPRESSION: 1. Acute respiratory failure due to COVID-19 pneumonia. Intubated, vent management per Pulmonary. Continue on Rocephin, azithromycin, and Decadron per ID. 2. Leukocytosis and fever. Continue IV antibiotics. Chest x-ray noted. WBC improved some, 13.9. 3. Hypertension, currently hypotensive. May need to start pressors. 4. Tachycardia, unable to give metoprolol due to hypotension. Cardiology has been consulted. 5. Deep vein thrombosis prophylaxis, on Lovenox b.i.d. PLAN: Continue supportive management, enteral feeding, IV antibiotics. Dictated by SNEHAL Laguerre Yoletteching Nathen Aparicio MD MY/MODL /[id number]
[2019-08-31] MEDS: CEFTRIAXONE SOD 1 GM/NS 50 ML 50 ML IV SCH (17:31)
--- NOTE | 2019-08-31 19:55 | Diagnostic Imaging Report ---
EXAMINATION: CHEST SINGLE (PORTABLE) INDICATION: ^resp failure ^[id number] ^1820 COMPARISON: 08/30/2019 FINDINGS: AP view TUBES and LINES: Unchanged endotracheal tube, left upper extremity PICC, and nasogastric tube. LUNGS: Interval increase in diffuse pulmonary airspace disease, notably in the right lower lung. PLEURA: No pleural effusion or pneumothorax. HEART AND MEDIASTINUM: The cardiomediastinal silhouette is unremarkable. BONES AND SOFT TISSUES: No acute osseous lesion. Soft tissues are unremarkable. UPPER ABDOMEN: No free air under the diaphragm. IMPRESSION: Interval increase in diffuse pulmonary airspace disease suggestive of worsening pneumonia. Signed by: Nader Duran MD on 08/31/2019 7:52 PM
[2019-08-31] MEDS ORDERED: ENOXAPARIN SOD INJ 40 MG/0.4 ML SYR SC SCH (21:00)
[2019-08-31] MEDS: FENTANYL 2000MCG/NS 250 250 ML IV PRN (21:44)
--- NOTE | 2019-08-31 22:04 | NUR ---
Reported ABG results to Dr. Max Lowry. No new orders at this time. Communicated with RT.
[2019-08-31 22:18] LABS: ABG HCO3 31 mmol/L (22-26); ABG PCO2 52 mmHg (35-45); ABG PH 7.38 (7.35-7.45); ABG PO2 48 mmHg (80-105)
[2019-09-01] VITALS (23 sets, daily range): BP systolic 82–155; BP diastolic 39–88
--- NOTE | 2019-09-01 02:44 | Consultation ---
DATE OF CONSULTATION: 08/31/2019 Cardiovascular Consultation REASON FOR CONSULTATION: Consultation is requested for tachycardia. HISTORY OF PRESENT ILLNESS: The patient is a 44-year-old man admitted on August 24, 2019 with pulmonary symptoms. The patient developed acute respiratory failure requiring mechanical ventilation due to COVID-19 infection and associated pneumonia. The patient's cardiovascular history is significant for hypertension. There is no history of diabetes, congestive heart failure, stroke. SURGICAL HISTORY: Significant for spinal surgery. SOCIAL HISTORY: There is no history of tobacco or illegal drug use. There is a history of social use of alcohol. ALLERGIES: NO KNOWN DRUG ALLERGIES. REVIEW OF SYSTEMS: Unable to obtain, patient is intubated on ventilator. MEDICATIONS: The patient is receiving antibiotics and steroids for COVID-19 infection and associated severe viral pneumonia. He is also on sedation with propofol and midazolam. IV fentanyl was also added and the propofol is being weaned. The patient's cardiovascular medications are on hold due to relative hypotension. PHYSICAL EXAMINATION: VITAL SIGNS: The patient's is 102/50 with a heart rate of 102, regular, and his temperature is 99.5. Oxygen saturation is at 90%. GENERAL: The patient is on ventilator and sedated. HEAD AND NECK: Normocephalic and atraumatic. LUNGS: Vent breath sounds anteriorly. CARDIOVASCULAR: Regular tachycardia. S1 and S2 present. ABDOMEN: soft, bowel sounds present. EXTREMITIES: Trace ankle edema. Medications: reviewed. Cardiac medications on hold because of hypotension: metoprolol 12.5 mg two times a day and lisinopril 40 mg one a day. LABORATORY DATA: White blood cell count of 13.9, decreased from 16.2 August 29. His hemoglobin is 10.8 and hematocrit is 33.3,his platelet count is 204,000. His H and H on August 29 were 12 and 37 respectively. His metabolic profile today shows a sodium of 141, potassium of 4.7, chloride of 106, bicarb of 29, BUN of 20, and creatinine of 0.69. His glucose is 135, and his albumin is 2.0. Echocardiogram was performed August 30, 2019. The study was a difficult study. It showed normal left ventricular ejection fraction is 65% to 70%, normal right ventricular size and systolic function. The valvular structures were not well visualized. There was a trivial pericardial effusion. Chest x-ray shows patchy airspace disease in both lungs. ASSESSMENT AND PLAN: 1. Acute respiratory failure requiring mechanical ventilation due to Covid-19 infection and associated severe pneumonia. The patient is under treatment with antibiotics and steroids. 2. Episodes of sinus tachycardia. These episodes have resolved with a change in sedation. The patient initially was sedated with propofol and midazolam and subsequently IV fentanyl was added and the propofol has been decreased. His blood pressure is better and his tachycardia has improved. Monitor cardiac rhythm. If there is recurrence of sinus tachycardia in spite of adequate sedation, we will assess for other causes of sinus tachycardia. 3. Relative hypotension, but not requiring pressors yet. Continue to monitor. 4. Mild anemia. The patient's H and H have decreased. Monitor closely. 5. We will follow with you. MD LEONORA Feldman/MODL /[id number]
[2019-09-01] MEDS: ROCURONIUM BROMIDE 250 MG in SODIUM CHLORIDE 0.9% 250ML 225 ML IV PRN ×4 (03:24→23:14)
[2019-09-01] MEDS ORDERED: SODIUM CHLORIDE 0.9% 250ML 250 ML ONE (03:45)
--- NOTE | 2019-09-01 05:23 | Diagnostic Imaging Report ---
EXAMINATION: CHEST SINGLE (PORTABLE) INDICATION: ^resp failure COMPARISON: 08/31/2019 FINDINGS: AP view TUBES and LINES: Unchanged endotracheal tube, left upper cavity PICC, and nasogastric tube. LUNGS: Unchanged diffuse pulmonary airspace disease. PLEURA: Probable small bilateral pleural effusions are unchanged. No pneumothorax. HEART AND MEDIASTINUM: The cardiomediastinal silhouette is unchanged. BONES AND SOFT TISSUES: No acute osseous lesion. Soft tissues are unremarkable. UPPER ABDOMEN: No free air under the diaphragm. IMPRESSION: Stable exam. Unchanged pulmonary airspace disease consistent with provided history of viral pneumonia. Signed by: Nader Duran MD on 09/01/2019 5:20 AM
--- NOTE | 2019-09-01 06:04 | Progress Note ---
DATE: 08/27/2019 SUBJECTIVE: The patient is seen and evaluated. Available labs and notes reviewed. REVIEW OF SYSTEMS: He is doing better. He says he is doing much better. Dictation Ends Here Dictated by Chirag Moreno PA-C (Al) Andreea Maguire MD /ANGELA /[id number]
[2019-09-01 06:06] LABS: BASOPHILS % 0.1 % (0.0-1.0); EOSINOPHILS # (AUTO) 0.1 (0.0-0.4); EOSINOPHILS % 0.5 % (0.0-6.0); HEMATOCRIT 34.9 % (38.2-49.6); HEMOGLOBIN 10.9 g/dL (14.0-18.0); LYMPHOCYTES # (AUTO) 0.5 (1.0-3.2); LYMPHOCYTES % 3.4 % (18.0-39.1); MEAN CORPUSCULAR HEMOGLOBIN 29.4 pg (28-32); MEAN CORPUSCULAR HGB CONC 31.2 g/dL (31-35); MEAN CORPUSCULAR VOLUME 94.1 fL (81-99); MONOCYTES # (AUTO) 0.4 (0.2-0.8); MONOCYTES % 3.3 % (4.4-11.3); NEUTROPHILS # (AUTO) 12.3 (2.1-6.9); NEUTROPHILS % 91.2 % (38.7-80.0); PLATELET COUNT 157 x10e3/uL (140-360); RED BLOOD COUNT 3.71 x10e6/uL (4.3-5.7); RED CELL DISTRIBUTION WIDTH 12.1 % (11.7-14.4)
[2019-09-01 06:31] LABS: ALANINE AMINOTRANSFERASE 40 IU/L (0-55); ALBUMIN/GLOBULIN RATIO 0.6 (0.8-2.0); ALKALINE PHOSPHATASE 51 IU/L (40-150); ANION GAP 8.6 mmol/L (8-16); BLOOD UREA NITROGEN 22 mg/dL (7-26); BUN/CREATININE RATIO 32 (6-25); CALCIUM 7.9 mg/dL (8.4-10.2); CARBON DIOXIDE 33 mmol/L (22-29); CHLORIDE 106 mmol/L (98-107); CREATININE, SERUM 0.68 mg/dL (0.72-1.25); EST GLOMERULAR FILTRATION RATE > 60 ML/MIN (60-); GLUCOSE 153 mg/dL (74-118); POTASSIUM 4.6 mmol/L (3.5-5.1); SODIUM 143 mmol/L (136-145)
[2019-09-01] MEDS: PROPOFOL IV EMULSION 10MG/ML 100 ML IV PRN ×3 (06:44→23:14)
[2019-09-01 08:48] LABS: LYMPHOCYTES % (MANUAL) 5 % (19-48); MONOCYTES % (MANUAL) 3 % (3.4-9.0); MYELOCYTES % (MANUAL) 2 % (0-0); NEUTROPHILS % (MANUAL) 90 % (40-74); PLATELET ESTIMATE ADEQUATE; PLATELET MORPHOLOGY COMMENT NORMAL; RBC MORPHOLOGY COMMENT NORMAL
[2019-09-01] MEDS ORDERED: ENOXAPARIN SOD INJ 40 MG/0.4 ML SYR SC SCH (09:00)
[2019-09-01] MEDS ORDERED: FUROSEMIDE INJ 10 MG/ML 2 ML VIAL IV ONE (09:00)
[2019-09-01] MEDS: MIDAZOLAM HCL 5MG/ML 10ML VIAL 100 ML IV PRN ×3 (09:00→23:14)
--- NOTE | 2019-09-01 09:05 | Progress Note ---
DATE: Pulmonary Critical Care Progress Note. SUBJECTIVE: The patient had worsening saturations during the night and his FiO2 was increased to 100%. This morning, he received some additional rocuronium because of tachypnea. His FiO2 was decreased to 75%. His PEEP was increased to 15. His respiratory rate is 32 and his tidal volume is 390. The patient is currently on rocuronium at 0.1 as well as Versed 10 mg and fentanyl at 200. OBJECTIVE: VITAL SIGNS: Blood pressure is 116/60 and the patient is now saturating 98% on the above settings. His heart rate is 110. HEENT: Shows no facial swelling or erythema. He has an oral endotracheal tube. He has a feeding tube. He has a PICC line in place. He also has a right radial A-line. CARDIAC: Reveals regular rate and rhythm with normal S1, S2. LUNGS: Auscultation of lungs reveals rhonchorous breath sounds bilaterally. There is no wheezing. ABDOMEN: Soft and nontender. There is no rebound or guarding. EXTREMITIES: Examination of the extremities shows 1 to 2+ edema. LABORATORY DATA: Sodium is 143 and the BUN to creatinine ratio is 22 to 0.68. The albumin is 2. The white blood cell count is 13.5 and hemoglobin is 10.9. The platelet count is 157. RADIOGRAPHIC DATA: Chest x-ray shows bilateral airspace disease. IMPRESSION: 1. Acute respiratory failure. 2. Viral pneumonia and COVID-19 infection. 3. Anemia, unspecified. 4. Hypertension. PLAN: 1. Continue current ventilator settings and repeat ABG. 2. Complete dexamethasone. 3. Continue Lovenox. 4. The patient will be placed back in the prone position. 5. Lasix x1 with albumin. 6. Continue enteral feedings. 7. Case discussed with nursing staff, Respiratory, Infectious Disease, and family. Greater than 35 minutes in direct critical care time. Maximilian Lowry MD [facility]/REYESL /[id number]
--- NOTE | 2019-09-01 09:11 | Diagnostic Imaging Report ---
EXAMINATION: CHEST SINGLE (PORTABLE) INDICATION: Line placement COMPARISON: Chest radiograph of 09/01/2019 FINDINGS: LINES/TUBES:Left PICC line terminates at the superior cavoatrial junction. Endotracheal tube terminates approximately 3.5 cm above the fred. Enteric tube projects below the diaphragm with tip not visualized. LUNGS:The lungs are moderately inflated. Bilateral hazy and interstitial opacities. PLEURA:No pleural effusion or pneumothorax. MEDIASTINUM:The cardiomediastinal silhouette appears unchanged in size and shape. BONES/SOFT TISSUES:No acute osseous injury. ABDOMEN:No free air under the diaphragm. IMPRESSION: No significant interval change. Signed by: Farrah Pierson MD on 09/01/2019 9:07 AM
[2019-09-01] MEDS: AZITHROMYCIN 500MG/NS 250 ML 250 ML IV SCH (10:06)
[2019-09-01] MEDS: ASCORBIC ACID 500 MG TAB PO SCH ×2 (10:07→16:43)
[2019-09-01] MEDS: ENOXAPARIN SOD INJ 60 MG/0.6 ML SYR SC SCH ×2 (10:07→21:00)
[2019-09-01] MEDS: ZINC SULFATE 220 MG CAP PO SCH (10:09)
[2019-09-01] MEDS: METOPROLOL TARTRATE 25 MG TAB PO SCH ×2 (10:11→16:41)
--- NOTE | 2019-09-01 10:11 | Progress Note ---
DATE: 09/01/2019 Cardiology Progress Note SUBJECTIVE: Mr. Miles is intubated, sedated on paralytics, requiring high PEEP vent support. OBJECTIVE: VITAL SIGNS: Temperature 99.7, heart rate 116, sinus tachycardia on telemetry, blood pressure 136/71, respiratory rate 29, O2 saturation 95%, BMI 31. GENERAL: Intubated and sedated. NECK: Supple. CHEST: With rales and scattered rhonchi. CARDIOVASCULAR: Regular rate and rhythm. Normal S1, S2. No S3 or S4. ABDOMEN: Soft. Bowel sounds positive. EXTREMITIES: No edema and euthermic. CARDIOVASCULAR MEDICATIONS: Reviewed. Hydralazine p.r.n., lisinopril 40 mg daily, furosemide 20 mg IV once, potassium chloride 20 mEq once, albumin 25 mg q.8 hours, metoprolol tartrate 12.5 mg b.i.d., Lovenox 60 mg q.12 hours. STUDIES: Reviewed. Creatinine 0.6, sodium 143, potassium 4.6, chloride 106, bicarbonate 33, BUN 22 and creatinine 0.6, glucose 153. White blood cells 13.5, hemoglobin 10.9, platelets 157. INR 0.9. AST 23, ALT 40, alkaline phosphatase 51. ASSESSMENT AND PLAN: A 44-year-old man with: 1. Acute on chronic respiratory failure. 2. Status post hypotension, now resolved after intravascular fluid resuscitation. 3. History of hypertension. 4. SARS COVID-19 infection, community-acquired pneumonia, viral with COVID-19. 5. Preserved left ventricular systolic function with LVEF 65% to 70% on echocardiogram. 6. Sinus tachycardia on telemetry. RECOMMEND: 1. Continue supportive care and blood pressure optimization. 2. Anticoagulation with Lovenox. 3. Monitor H and H. 4. Steroid trial. Dexamethasone 6 mg daily x2, 10 days, encouraged. 5. Continue ventilator support. John Romero MD [facility]/MODL /[id number]
--- NOTE | 2019-09-01 11:51 | Operative Report ---
DATE OF PROCEDURE: SURGEON: Maximilian Lowry MD PROCEDURE: Endotracheal intubation. PREOPERATIVE DIAGNOSIS: Respiratory failure. POSTOPERATIVE DIAGNOSIS: Respiratory failure. CONSENT: Consent was deemed emergent due to respiratory failure. MEDICATIONS: The patient was on a Versed drip as well as fentanyl and rocuronium. DESCRIPTION OF PROCEDURE: The patient was placed in a supine position. Cuff leak was noted in his endotracheal tube. He was preoxygenated with 100% oxygen and a bougie was used through the existing 8.0 endotracheal tube. Bougie was placed into the trachea through the endotracheal tube. The old tube was removed and a new 8.0 endotracheal tube was placed over the bougie by the Seldinger technique. There was good CO2 return. There were equal breath sounds bilaterally. COMPLICATIONS: None. ESTIMATED BLOOD LOSS: None. Maximilian Lowry MD [facility]/MODL /[id number]
[2019-09-01] MEDS: ALBUMIN 25% 25GM 100ML 0.25 GM/ML BTL IV SCH ×2 (13:51→22:37)
[2019-09-01 14:55] LABS: ABG HCO3 35 mmol/L (22-26); ABG PCO2 78 mmHg (35-45); ABG PH 7.26 (7.35-7.45); ABG PO2 111 mmHg (80-105)
[2019-09-01] MEDS: FENTANYL 2000MCG/NS 250 250 ML IV PRN ×2 (15:15→23:15)
[2019-09-01] MEDS: ACETAMINOPHEN 325 MG TAB PO PRN (16:41)
[2019-09-01] MEDS: CEFTRIAXONE SOD 1 GM/NS 50 ML 50 ML IV SCH (16:44)
[2019-09-01] MEDS: NOREPINEPHRINE INJ 4MG/4ML 8 MG in DEXTROSE 5% 250ML 250 ML IV SCH (18:00)
[2019-09-01] MEDS ORDERED: LACTATED RINGER'S 500 ML IV ONE (18:00)
--- NOTE | 2019-09-01 19:43 | Progress Note ---
DATE: 09/01/2019 CONSULTANTS: 1. Dr. Lowry, sanitary engineering teacher. 2. Dr. Maguire with Infectious Disease. 3. Dr. Casas, Cardiology. CHIEF COMPLAINT: Shortness of breath, fever, and cough. SUBJECTIVE: The patient is seen and examined, in the ICU, remains intubated and sedated. He is still tachycardic and hypotensive with fever of 102.4. PHYSICAL EXAMINATION: VITAL SIGNS: Temperature 102.4, pulse is 110, respirations 36, blood pressure 84/59, pulse ox is 95% on the vent. GENERAL: Intubated, sedated. LUNGS: Decreased breath sounds with some wheezing. CARDIOVASCULAR: Tachycardia, regular rate. GI: Soft, nontender. NEURO: Sedated. MUSCULOSKELETAL: No edema. SKIN: Dry. : Ho in place, draining. LABORATORY DATA: WBC 13.5, hemoglobin 10.9, hematocrit 34.9, platelets 157. Sodium 143, potassium 4.61, BUN 22, creatinine 0.68, estimated GFR is greater than 60. Blood glucose 153, chest x-ray, no significant interval change. IMPRESSION: 1. Acute respiratory failure due to COVID-19 pneumonia. Remains intubated, sedated. Vent management per sanitary engineering teacher. Continue Rocephin, azithromycin and Decadron per ID. 2. Leukocytosis and fever. Continue IV antibiotics, chest x-ray with no significant change. WBC 13.5. Further recommendations per ID. 3. Hypertension, currently hypotensive. May consider pressors. 4. Sinus tachycardia, I will hold metoprolol due to hypotension. Cardiology on the case, may need pressors to help with the blood pressure. 5. Deep venous thrombosis prophylaxis, continue Lovenox b.i.d. PLAN: Continue supportive care, enteral feeding and IV antibiotics. Further recommendations per ID and sanitary engineering teacher. Dictated by SNEHAL Laguerre Taylor Aparicio MD MY/MODL /[id number] MTDD
[2019-09-01 21:56] LABS: ABG PH 7.46 (7.35-7.45)
[2019-09-01 21:58] LABS: ABG HCO3 31 mmol/L (22-26); ABG PCO2 43 mmHg (35-45); ABG PO2 103 mmHg (80-105)
--- NOTE | 2019-09-01 22:48 | NUR ---
PM ABG reported to Dr. Max Lowry. New order to decrease Fi02 to 60% (65%) and reduce RR to 30 (32). Current 02 sat 99%. Vent changes made, 02 sat 98%. pt tolerating well. vent order placed and communicated with RT.
[2019-09-02] VITALS (24 sets, daily range): BP systolic 95–149; BP diastolic 40–95
[2019-09-02] MEDS: ACETAMINOPHEN 325 MG TAB PO PRN ×2 (06:00→22:00)
[2019-09-02 06:02] LABS: EOSINOPHILS # (AUTO) 0.1 (0.0-0.4); EOSINOPHILS % 1.8 % (0.0-6.0); HEMATOCRIT 27.1 % (38.2-49.6); HEMOGLOBIN 8.8 g/dL (14.0-18.0); LYMPHOCYTES # (AUTO) 0.6 (1.0-3.2); LYMPHOCYTES % 7.6 % (18.0-39.1); MEAN CORPUSCULAR HEMOGLOBIN 29.8 pg (28-32); MEAN CORPUSCULAR HGB CONC 32.5 g/dL (31-35); MEAN CORPUSCULAR VOLUME 91.9 fL (81-99); MONOCYTES # (AUTO) 0.2 (0.2-0.8); MONOCYTES % 2.5 % (4.4-11.3); NEUTROPHILS # (AUTO) 6.6 (2.1-6.9); NEUTROPHILS % 86.8 % (38.7-80.0); PLATELET COUNT 104 x10e3/uL (140-360); RED BLOOD COUNT 2.95 x10e6/uL (4.3-5.7); RED CELL DISTRIBUTION WIDTH 12.2 % (11.7-14.4)
[2019-09-02 06:28] LABS: ALANINE AMINOTRANSFERASE 32 IU/L (0-55); ALBUMIN 2.6 g/dL (3.5-5.0); ALKALINE PHOSPHATASE 39 IU/L (40-150); BLOOD UREA NITROGEN 19 mg/dL (7-26); BUN/CREATININE RATIO 32 (6-25); CALCIUM 7.9 mg/dL (8.4-10.2); CARBON DIOXIDE 32 mmol/L (22-29); CHLORIDE 104 mmol/L (98-107); EST GLOMERULAR FILTRATION RATE > 60 ML/MIN (60-); GLUCOSE 95 mg/dL (74-118); SODIUM 141 mmol/L (136-145)
[2019-09-02] MEDS: ROCURONIUM BROMIDE 250 MG in SODIUM CHLORIDE 0.9% 250ML 225 ML IV PRN ×2 (06:37→23:39)
[2019-09-02] MEDS: MIDAZOLAM HCL 5MG/ML 10ML VIAL 100 ML IV PRN ×3 (07:08→23:40)
[2019-09-02] MEDS: PROPOFOL IV EMULSION 10MG/ML 100 ML IV PRN ×2 (07:11→23:38)
[2019-09-02] MEDS: FENTANYL 2000MCG/NS 250 250 ML IV PRN ×2 (08:00→22:24)
[2019-09-02] MEDS: AZITHROMYCIN 500MG/NS 250 ML 250 ML IV SCH (08:22)
[2019-09-02] MEDS: ASCORBIC ACID 500 MG TAB PO SCH ×2 (08:22→17:51)
[2019-09-02] MEDS: ZINC SULFATE 220 MG CAP PO SCH (08:22)
[2019-09-02] MEDS: ENOXAPARIN SOD INJ 60 MG/0.6 ML SYR SC SCH ×2 (08:26→21:40)
[2019-09-02] MEDS: METOPROLOL TARTRATE 25 MG TAB PO SCH ×2 (08:30→17:56)
[2019-09-02 09:46] LABS: PLATELET ESTIMATE SLIGHTLY DECREASED; PLATELET MORPHOLOGY COMMENT RARE EDTA CLUMPING; RBC MORPHOLOGY COMMENT NORMAL
--- NOTE | 2019-09-02 10:11 | Progress Note ---
DATE: Pulmonary Critical Care Progress Note SUBJECTIVE: The patient is now in the prone position. He is on a PRVC mode of ventilation at a rate of 32. His tidal volume is set at 390 and his PEEP is set at 14. His FiO2 is set at 55%. He is receiving enteral feedings. He is on rocuronium as well as Versed and fentanyl. PHYSICAL EXAMINATION: VITAL SIGNS: The patient is afebrile. The blood pressure is 138/50 and saturation is 100% on the current ventilator settings. HEENT: Shows no facial swelling or erythema. There is an oral endotracheal tube. There is a nasogastric tube. CARDIAC: Reveals regular rate and rhythm with normal S1 and S2. LUNGS: Auscultation of lungs reveals crackles at the bases. ABDOMEN: Soft and nontender. There is no rebound or guarding. EXTREMITIES: Shows no leg edema or calf tenderness. There is no cyanosis or clubbing. SKIN: Shows no rashes. NEUROLOGICAL: Shows the patient to be sedated. LABORATORY DATA: White blood cell count is 7.6 and the hemoglobin is 8.8. The platelet count is 104. The BUN to creatinine ratio is 19 to 0.6. Other electrolytes are within normal limits and the albumin is 2.6. RADIOGRAPHIC DATA: Chest x-ray shows bilateral pulmonary infiltrates. IMPRESSION: 1. Acute respiratory failure. 2. Viral pneumonia and COVID-19 infection. 3. Hypertension. 4. Anemia, unspecified. 5. Thrombocytopenia. PLAN: 1. Continue to ventilate the patient in prone position. 2. Continue to monitor ABG and adjust ventilation as tolerated. 3. Continue dexamethasone. 4. Continue current antibiotics. 5. Continue Lovenox. 6. Continue to monitor platelet count. Platelet count continues to fall, we may need to stop heparin. 7. Case discussed with Respiratory, shift leader nursing, day shift nursing, Infectious Disease, and Internal Medicine. Greater than 35 minutes in direct critical care time. Maximilian Lowry MD [facility]/MODL /[id number]
[2019-09-02] MEDS ORDERED: MIDAZOLAM HCL 5MG/ML 10ML VIAL 100 ML IV ONE (13:58)
[2019-09-02 13:59] LABS: ABG HCO3 30 mmol/L (22-26); ABG PCO2 43 mmHg (35-45); ABG PH 7.44 (7.35-7.45); ABG PO2 90 mmHg (80-105)
[2019-09-02] MEDS: CHOLECALCIFEROL 400 UNIT TAB PO SCH (17:50)
[2019-09-02] MEDS: CEFTRIAXONE SOD 1 GM/NS 50 ML 50 ML IV SCH (17:51)
--- NOTE | 2019-09-02 17:58 | Progress Note ---
DATE: 09/02/2019 CONSULTANTS: 1. Dr. Lowry, sales agent casualty insurance. 2. Dr. Maguire, Infectious Disease. 3. Dr. Casas, Cardiology. CHIEF COMPLAINT: Shortness of breath, fever, and cough. SUBJECTIVE: The patient is seen and examined in ICU. He is intubated, in prone position for better oxygenation. Heart rate normal sinus rhythm at 90, afebrile. PHYSICAL EXAMINATION: VITAL SIGNS: Temperature 99.3, pulse is 85, respirations 30, blood pressure 138/58, and pulse ox is 100% on the vent. GENERAL: Intubated, sedated. LUNGS: Decreased breath sounds. CARDIOVASCULAR: Regular rate and rhythm. GI: Soft and nontender. NEURO: Sedated. MUSCULOSKELETAL: No edema. SKIN: Dry. : Ho. LABORATORY DATA: WBC 7.62, hemoglobin 8.8, hematocrit 27.1, and platelet 104. Sodium 141, potassium 4.0, CO2 of 32, BUN 19, creatinine 0.60, and estimated GFR greater than 60. IMPRESSION AND PLAN: 1. Acute respiratory failure due to coronavirus disease-19 pneumonia. Intubated and sedated. Vent management per sales agent casualty insurance. Continue Rocephin, azithromycin, and Decadron. ID on the case. 2. Leukocytosis and fever. Now improved. Continue IV antibiotics. 3. Hypertension, currently stable. 4. Sinus tachycardia. Now resolved. Cardiology is on the case. 5. Mild thrombocytopenia. Platelet count 104. 6. Anemia. Hemoglobin is 8.8. 7. DVT prophylaxis, Lovenox 60 b.i.d. Dictated by SNEHAL Laguerre Taylor Aparicio MD MY/MODL /[id number]
[2019-09-02] MEDS: NOREPINEPHRINE INJ 4MG/4ML 8 MG in DEXTROSE 5% 250ML 250 ML IV SCH (18:00)
--- NOTE | 2019-09-02 18:42 | Diagnostic Imaging Report ---
EXAMINATION: CHEST SINGLE (PORTABLE) INDICATION: ^resp failure ^[id number] ^[id number] COMPARISON: 09/01/2019 FINDINGS: AP view TUBES and LINES: Stable endotracheal tube, nasogastric tube, and left PICC. LUNGS: Lungs are well inflated. Again seen diffuse bilateral airspace opacities, increased on the right side. PLEURA: No pneumothorax. Suspected right pleural effusion. HEART AND MEDIASTINUM: The cardiomediastinal silhouette is enlarged. BONES AND SOFT TISSUES: No acute osseous lesion. Soft tissues are unremarkable. UPPER ABDOMEN: No free air under the diaphragm. IMPRESSION: Again seen diffuse bilateral airspace opacities, increased on the right side when compared to prior x-ray, representing worsening edema and/or pneumonia. Suspected right pleural effusion. Signed by: Dr. Eldon Sanchez MD on 09/02/2019 6:39 PM
--- NOTE | 2019-09-02 19:38 | Progress Note ---
DATE: Cardiology Progress Note SUBJECTIVE: On ventilatory support. OBJECTIVE: VITAL SIGNS: Temperature 99.2, heart rate 83, blood pressure 138/58, respiratory rate 30, O2 saturation 100%, BMI 31.3. GENERAL: Intubated, sedated in prone position. CHEST: With rales throughout. CARDIOVASCULAR: Regular rate and rhythm. Normal S1, S2. Distant heart sounds. ABDOMEN: Deferred as the patient is in prone position. EXTREMITIES: Warm and no edema. CARDIOVASCULAR MEDICATIONS: Reviewed Lovenox 60 mg q.12 hours, lisinopril 40 mg daily, metoprolol tartrate 12.5 mg b.i.d. LABORATORY DATA: Studies reviewed. Sodium 141, potassium 4, chloride 104, bicarbonate 32, BUN 19, creatinine 0.6, platelets are 104. INR 0.9, PT 12.7, PTT 30.4. AST 26, ALT 32, alkaline phosphatase 39. ASSESSMENT: A 44-year-old man with: 1. Severe acute respiratory syndrome-coronavirus infection, community-acquired viral pneumonia, coronavirus dosease-19. 2. Hypertension. 3. Morbid obesity with a BMI of 31. 4. Anemia. RECOMMENDATIONS: 1. Continue current cardiovascular medications. Lisinopril and Lovenox. 2. Metoprolol. 3. Monitor H and H. 4. Continue supportive care. MD OPAL Del Valle/ANGELA /[id number] MTDD
[2019-09-02 21:00] LABS: ABG HCO3 29 mmol/L (22-26); ABG PCO2 50 mmHg (35-45); ABG PH 7.37 (7.35-7.45); ABG PO2 60 mmHg (80-105)
[2019-09-03] VITALS (29 sets, daily range): BP systolic 89–153; BP diastolic 0–70
[2019-09-03] MEDS ORDERED: SODIUM CHLORIDE 0.9% 250ML 250 ML ONE (04:57)
[2019-09-03] MEDS: FENTANYL 2000MCG/NS 250 250 ML IV PRN ×3 (06:06→23:55)
[2019-09-03] MEDS: ROCURONIUM BROMIDE 250 MG in SODIUM CHLORIDE 0.9% 250ML 225 ML IV PRN ×3 (06:07→18:48)
[2019-09-03 06:25] LABS: BASOPHILS % 0.1 % (0.0-1.0); EOSINOPHILS # (AUTO) 0.1 (0.0-0.4); HEMATOCRIT 27.8 % (38.2-49.6); HEMOGLOBIN 9.1 g/dL (14.0-18.0); LYMPHOCYTES # (AUTO) 0.5 (1.0-3.2); LYMPHOCYTES % 4.1 % (18.0-39.1); MEAN CORPUSCULAR HEMOGLOBIN 30.5 pg (28-32); MEAN CORPUSCULAR HGB CONC 32.7 g/dL (31-35); MEAN CORPUSCULAR VOLUME 93.3 fL (81-99); MONOCYTES # (AUTO) 0.3 (0.2-0.8); MONOCYTES % 2.4 % (4.4-11.3); NEUTROPHILS # (AUTO) 10.8 (2.1-6.9); NEUTROPHILS % 91.4 % (38.7-80.0); PLATELET COUNT 109 x10e3/uL (140-360); RED BLOOD COUNT 2.98 x10e6/uL (4.3-5.7)
[2019-09-03 06:43] LABS: ALANINE AMINOTRANSFERASE 33 IU/L (0-55); ALBUMIN 2.2 g/dL (3.5-5.0); ALBUMIN/GLOBULIN RATIO 0.8 (0.8-2.0); ALKALINE PHOSPHATASE 51 IU/L (40-150); ANION GAP 10.2 mmol/L (8-16); BLOOD UREA NITROGEN 19 mg/dL (7-26); BUN/CREATININE RATIO 31 (6-25); CALCIUM 7.9 mg/dL (8.4-10.2); CARBON DIOXIDE 29 mmol/L (22-29); CHLORIDE 104 mmol/L (98-107); CREATININE, SERUM 0.61 mg/dL (0.72-1.25); EST GLOMERULAR FILTRATION RATE > 60 ML/MIN (60-); GLUCOSE 101 mg/dL (74-118); POTASSIUM 4.2 mmol/L (3.5-5.1); SODIUM 139 mmol/L (136-145)
--- NOTE | 2019-09-03 07:15 | NUR ---
infectious disease progress note he patient is now in the prone position. He is on a PRVC mode of ventilation at a rate of 32. His tidal volume is set at 390 and his PEEP is set at 14. His FiO2 is set at 55%. He is receiving enteral feedings. He is on rocuronium as well as Versed and fentanyl. PHYSICAL EXAMINATION: VITAL SIGNS: The patient is afebrile. The blood pressure is 138/50 and saturation is 100% on the current ventilator settings. HEENT: Shows no facial swelling or erythema. There is an oral endotracheal tube. There is a nasogastric tube. CARDIAC: Reveals regular rate and rhythm with normal S1 and S2. LUNGS: Auscultation of lungs reveals crackles at the bases. ABDOMEN: Soft and nontender. There is no rebound or guarding. EXTREMITIES: Shows no leg edema or calf tenderness. There is no cyanosis or clubbing. SKIN: Shows no rashes. NEUROLOGICAL: Shows the patient to be sedated. LABORATORY DATA: White blood cell count is 7.6 and the hemoglobin is 8.8. The platelet count is 104. The BUN to creatinine ratio is 19 to 0.6. Other electrolytes are within normal limits and the albumin is 2.6. RADIOGRAPHIC DATA: Chest x-ray shows bilateral pulmonary infiltrates. IMPRESSION: 1. Acute respiratory failure. 2. Viral pneumonia and COVID-19 infection. 3. Hypertension. 4. Anemia, unspecified. 5. Thrombocytopenia. [id number]
--- NOTE | 2019-09-03 08:46 | Diagnostic Imaging Report ---
EXAMINATION: CHEST SINGLE (PORTABLE) INDICATION: Respiratory failure COMPARISON: Multiple prior chest radiographs, most recently of 09/02/2019 FINDINGS: LINES/TUBES:Support lines and tubes unchanged. LUNGS:The lungs are moderately inflated. Persistent bilateral lower lung predominant airspace opacities. PLEURA:No pleural effusion or pneumothorax. MEDIASTINUM:The cardiomediastinal silhouette appears unchanged in size and shape. BONES/SOFT TISSUES:No acute osseous injury. ABDOMEN:No free air under the diaphragm. IMPRESSION: No significant interval change. Signed by: Farrah Pierson MD on 09/03/2019 8:43 AM
[2019-09-03] MEDS: ZINC SULFATE 220 MG CAP PO SCH (09:00)
[2019-09-03] MEDS: ASCORBIC ACID 500 MG TAB PO SCH ×2 (09:00→16:55)
[2019-09-03] MEDS: METOPROLOL TARTRATE 25 MG TAB PO SCH ×2 (09:00→16:55)
[2019-09-03] MEDS: CHOLECALCIFEROL 400 UNIT TAB PO SCH ×2 (09:00→16:55)
[2019-09-03] MEDS: NOREPINEPHRINE INJ 4MG/4ML 8 MG in DEXTROSE 5% 250ML 250 ML IV SCH (09:19)
[2019-09-03] MEDS: ENOXAPARIN SOD INJ 60 MG/0.6 ML SYR SC SCH ×2 (09:19→21:29)
[2019-09-03] MEDS: AZITHROMYCIN 500MG/NS 250 ML 250 ML IV SCH (09:19)
[2019-09-03 10:02] LABS: EOSINOPHILS % (MANUAL) 1 % (0-7); LYMPHOCYTES % (MANUAL) 3 % (19-48); MONOCYTES % (MANUAL) 3 % (3.4-9.0); NEUTROPHILS % (MANUAL) 93 % (40-74)
[2019-09-03 10:03] LABS: PLATELET ESTIMATE SLIGHTLY DECREASED; RBC MORPHOLOGY COMMENT NORMAL
[2019-09-03 10:04] LABS: PLATELET MORPHOLOGY COMMENT RARE EDTA CLUMPING
--- NOTE | 2019-09-03 13:09 | NUR ---
Nutrition Intervention Note RD Recommendation(s) for Physician: - In light of Propofol requirements, recommend TF change to Vital HP with goal rate of 50 ml/hr (to provide 1200 kcal and 105 gm protein). Remaining kcal provided by Propofol. - Water flushes/fluid management per MD. - Propofol providing an [id number] lipid kcal/day. Plan of Care: RD following, TF rec's, monitor adequacy and tolerance Nutrition reason for involvement: follow up RD Assessment 09/02: Follow up. Pt remains intubated, paralyzed, and sedated on Propofol and Versed. Pt requiring proning. TF rate at 10 ml/hr per TF documentation yesterday- inadequate EN currently, no additional EN administration available per chart. Recommend continuing EN while pt is proned by placing them in reverse Trendelenburg position. If unable to advance TF to goal rate, recommend considering PN. Chart reviewed. Will continue to monitor. Initial encounter with patient. Pt is sedated and orally intubated. Pt was not able to provide a nutrition Hx at the time of visit. Unable to observe oral cavity or perform a nutrition focused physical exam. Jevity 1.2 infusing at 20ml hr with a goal of 50ml/hr. Propofol provides 1.1kcal/ml EN provides 576 kcals, 26.64g of protein, and 387.36ml of free H2O Principal Problems/Diagnoses: CoVID 19 pneumonia PMH:No significant medical Hx, overweight/obesity GI: LBM 08/29 Skin: Intact Labs: 09/02: Na 139, K 4.2, BUN 19, Cr 0.61, Gluc 101 Meds: azithromycin, abx, k-dur, vitamin C, vitamin D3, zinc sulfate IVF/Drips: Propofol at 15 ml/hr (396 kcal), Rocuronium drip, Versed drip, Fentanyl drip Ht: 67 in. Wt: 215.31lb (09/02), 200.44lbs (08/29) BMI: 31.4kg/m2 IBW: 148 lbs Malnutrition Evaluation (08/30/2019) The patient does not meet criteria for a specified degree of malnutrition at this time. Will re-evaluate at follow-up as appropriate. Unable to assess due to current isolation precautions. Nutrition Prescription (Diet Order): TF Jevity 1.2 at 50 ml/hr (1440 kcal and 67 gm protein) Estimated Nutritional Needs: 3398-1004 calories/day (22-25 kcal/kg/IBW) 101-135 g protein/day (1.5-2 g pro/kg/IBW) Diet Adequacy: Not meeting calorie needs, Not meeting protein needs Diet Education Needs Assessment: Diet education not indicated. Nutrition Care Level: high- not meeting needs Nutrition Diagnosis: Inadequate energy and protein intake related to intubation as evidenced by requiring EN on vent. Goal: Patient will meet 75-100% of estimated needs by follow up Progress: Progressing Interventions: EN- Composition, Rate, Route, IVF, Prescription medications, Multivitamin/mineral supplements Monitoring/Evaluation: Total energy intake, Total protein intake, Formula/Solution, IVF, Prescription medication, Weight change. Signed: Mary Rodney RD, LD, [facility]
[2019-09-03 14:06] LABS: ABG HCO3 28 mmol/L (22-26); ABG PCO2 42 mmHg (35-45); ABG PH 7.43 (7.35-7.45); ABG PO2 93 mmHg (80-105)
--- NOTE | 2019-09-03 15:15 | NUR ---
ROCURONIUM ON STANDBY AT THIS TIME, WILL MONITOR CLOSELY
--- NOTE | 2019-09-03 16:35 | NUR ---
PT BEGAN COUGHING AND BREATHING OVER VENT, SATS AT 76%, GIVEN 100% FIO2 X4 MIN , THEN DECREASED TO 70%, PT SATS AT 92% TOOK 10-15 MIN TO RECOVER INTO 90'S. ROCURONIUM STARTED BACK, SEDATION INCREASED. WILL CONTINUE TO MONITOR CLOSELY
--- NOTE | 2019-09-03 16:56 | Progress Note ---
DATE: Pulmonary Critical Care Progress Note. SUBJECTIVE: The patient is now in the supine position. He is on a PRVC mode of ventilation with a tidal volume of 390 and a rate of 28. His FiO2 is set at 50%. His PEEP is set at 12. He is still on rocuronium as well as Versed at 6 mg and fentanyl at 250 mcg. PHYSICAL EXAMINATION: VITAL SIGNS: Blood pressure is 106/51, saturation is 95% on the above ventilator settings. The pulse is 79. He has an oral endotracheal tube. He has a nasogastric feeding tube. The patient also has a PICC line and an arterial line. CARDIAC: Reveals regular rate and rhythm with normal S1 and S2. LUNGS: Auscultation of lungs reveals rhonchorous breath sounds bilaterally. There is no wheezing. ABDOMEN: Soft and nontender. There is no rebound or guarding. EXTREMITIES: Shows no leg edema or calf tenderness. There is no cyanosis or clubbing. SKIN: Shows no rashes. NEUROLOGICAL: Shows no focal abnormalities. The patient is currently paralyzed and sedated. LABORATORY DATA: White blood cell count is 11.8 and hemoglobin is 9.1. The platelet count is 109. The BUN to creatinine ratio is 19 to 0.61. Other electrolytes are within normal limits and the albumin is 2.2. RADIOGRAPHIC DATA: Chest x-ray shows bilateral infiltrates. IMPRESSION: 1. Acute respiratory failure. 2. COVID-19 infection and viral pneumonia. 3. Thrombocytopenia. 4. Anemia, unspecified. 5. Hypertension. PLAN: 1. Attempt to wean off rocuronium. 2. Continue current PRVC mode of ventilation and wean as tolerated. Repeat ABG this evening. 3. Complete dexamethasone. 4. Continue Lovenox. 5. Continue enteral feedings. 6. Case discussed with nursing staff during third shift lieutenant, dayshift nursing staff, Respiratory, and Infectious Disease and administration. Greater than 35 minutes in direct critical care time. Maximilian Lowry MD [facility]/MODL /[id number]
[2019-09-03] MEDS: MIDAZOLAM HCL 5MG/ML 10ML VIAL 100 ML IV PRN ×2 (16:58→22:58)
--- NOTE | 2019-09-03 17:41 | Progress Note ---
DATE: SUBJECTIVE: Mr. Miles remains on ventilator. PHYSICAL EXAMINATION: GENERAL: Intubated and sedated. HEENT: Not icteric. NECK: Supple. CHEST: Clear. HEART: S1, S2. No murmurs. ABDOMEN: Soft. IMPRESSION: Respiratory failure, coronavirus disease-19, thrombocytopenia. Cultures remain negative. White count 11.8, his platelet is 109. Sodium 139, potassium 4.2, creatinine 0.6. This is day #10. We will discontinue azithromycin. Discontinue Rocephin. Continue supportive care. Discontinue Decadron and follow up. MD MAYURI Taylor/MODL /[id number]
--- NOTE | 2019-09-03 20:03 | Progress Note ---
DATE: 09/03/2019 CONSULTANTS: 1. Dr. Lowry, Fisheries Management Biologist. 2. Dr. Maguire, Infectious Disease. 3. Dr. Romero, Cardiology. CHIEF COMPLAINT: Shortness of breath, fever, and cough. SUBJECTIVE: Seen in ICU, intubated, O2 sats in the low 90s. PEEP went to 12. Here he is afebrile today, heart rate normal, sinus rhythm in the 80s to 90s. PHYSICAL EXAMINATION: VITAL SIGNS: Temperature 99.1, pulse is 86, respirations 21, blood pressure 142/62, and pulse ox is 90%, on the vent. GENERAL: Sedated, intubated. HEENT: Normocephalic, atraumatic. LUNGS: Decreased breath sounds. CARDIOVASCULAR: Regular rate and rhythm. GI: Soft and nontender. NEURO: Sedated. MUSCULOSKELETAL: No edema. SKIN: Dry. : Ho draining clear urine. LABORATORY DATA: WBC 11.80, hemoglobin 9.1, hematocrit 27.8, and platelet 109. Blood gases; ABG, pH of 7.43, pCO2 of 42, PO2 of 93, bicarb 28, O2 saturation 97. Sodium 139, potassium 4.2. CO2 of 29, creatinine 0.61, estimated GFR greater than 60. AST 31, ALT 33, alkaline phosphate 51, PT 12.7, APTT 30.4. IMPRESSION: 1. Acute respiratory failure due to COVID pneumonia. He remains intubated and sedated. Off antibiotics and Decadron. Vent management per public affairs director. ID and public affairs director on the case. 2. Mild leukocytosis. Afebrile today. We will continue to monitor off antibiotics. 3. Hypertension. Currently, stable. Sinus tachycardia, now resolved. Cardiology on the case. 4. Mild thrombocytopenia. No signs of bleeding. We will continue to monitor closely. 5. Anemia. Hemoglobin is 9.1. 6. Deep venous thrombosis prophylaxis, Lovenox 60 mg b.i.d. Dictated by SNEHAL Laguerre Yoletteching Nathen Aparicio MD MY/MODL /[id number]
--- NOTE | 2019-09-03 21:58 | Progress Note ---
DATE: 09/03/2019 Cardiology Progress Note. SUBJECTIVE: Remains intubated and sedated. OBJECTIVE: VITAL SIGNS: Temperature 99.1, heart rate 88, respiratory rate 27, blood pressure 129/54, O2 saturation 96% on vent support. GENERAL: Intubated, sedated. CHEST: Decreased breath sounds and rales. CARDIOVASCULAR: Regular rate and rhythm. Normal S1, S2. No S3 or S4. ABDOMEN: Soft. Bowel sounds positive. EXTREMITIES: Trace edema. Warm extremities. CARDIOVASCULAR MEDICATIONS: Reviewed, on Lovenox 60 mg q.12 hours, propofol sedation, Levophed as needed, metoprolol on hold, fentanyl sedation, midazolam sedation, and rocuronium for paralytic. LABORATORY DATA: Studies reviewed white blood cells 11, hemoglobin 9.1 stable, platelets 109, creatinine 0.6, and glucose 113. ASSESSMENT AND PLAN: 1. Severe acute respiratory syndrome-coronavirus infection. 2. infection/community acquired pneumonia with coronavirus-19 infection. 3. Hypertension, morbid obesity, and anemia. Recommend continue vent support for acute respiratory failure. 4. Continue thromboembolic risk prevention. Monitor H and H. Supportive care. MD OPAL Del Valle/ANGELA /[id number]
[2019-09-04] VITALS (25 sets, daily range): BP systolic 89–166; BP diastolic 47–94
[2019-09-04 04:52] LABS: ABG PH 7.38 (7.35-7.45)
[2019-09-04 04:53] LABS: ABG HCO3 28 mmol/L (22-26); ABG PCO2 46 mmHg (35-45); ABG PO2 63 mmHg (80-105)
[2019-09-04] MEDS: PROPOFOL IV EMULSION 10MG/ML 100 ML IV PRN ×2 (06:09→18:45)
[2019-09-04] MEDS: ROCURONIUM BROMIDE 250 MG in SODIUM CHLORIDE 0.9% 250ML 225 ML IV PRN (06:10)
[2019-09-04] MEDS: MIDAZOLAM HCL 5MG/ML 10ML VIAL 100 ML IV PRN ×4 (06:10→21:30)
[2019-09-04 06:15] LABS: EOSINOPHILS # (AUTO) 0.1 (0.0-0.4); EOSINOPHILS % 1.4 % (0.0-6.0); HEMATOCRIT 25.9 % (38.2-49.6); HEMOGLOBIN 8.1 g/dL (14.0-18.0); LYMPHOCYTES # (AUTO) 0.5 (1.0-3.2); LYMPHOCYTES % 6.2 % (18.0-39.1); MEAN CORPUSCULAR HEMOGLOBIN 29.6 pg (28-32); MEAN CORPUSCULAR HGB CONC 31.3 g/dL (31-35); MEAN CORPUSCULAR VOLUME 94.5 fL (81-99); MONOCYTES # (AUTO) 0.4 (0.2-0.8); MONOCYTES % 4.6 % (4.4-11.3); NEUTROPHILS # (AUTO) 7.1 (2.1-6.9); NEUTROPHILS % 86.8 % (38.7-80.0); PLATELET COUNT 122 x10e3/uL (140-360); RED BLOOD COUNT 2.74 x10e6/uL (4.3-5.7); RED CELL DISTRIBUTION WIDTH 12.6 % (11.7-14.4)
[2019-09-04 06:40] LABS: ALANINE AMINOTRANSFERASE 26 IU/L (0-55); ALBUMIN 1.7 g/dL (3.5-5.0); ALBUMIN/GLOBULIN RATIO 0.6 (0.8-2.0); ALKALINE PHOSPHATASE 46 IU/L (40-150); ANION GAP 8.6 mmol/L (8-16); BLOOD UREA NITROGEN 17 mg/dL (7-26); BUN/CREATININE RATIO 32 (6-25); CALCIUM 7.2 mg/dL (8.4-10.2); CARBON DIOXIDE 27 mmol/L (22-29); CHLORIDE 106 mmol/L (98-107); CREATININE, SERUM 0.53 mg/dL (0.72-1.25); EST GLOMERULAR FILTRATION RATE > 60 ML/MIN (60-); GLUCOSE 93 mg/dL (74-118); POTASSIUM 3.6 mmol/L (3.5-5.1); SODIUM 138 mmol/L (136-145)
--- NOTE | 2019-09-04 08:21 | Diagnostic Imaging Report ---
Examination: Single AP view of the chest. COMPARISON: 09/03/2019 INDICATION: Respiratory failure DISCUSSION: Endotracheal tube has been advanced and the tip now terminates 2.7 cm above the fred. Left upper extremity PICC and enteric tube are unchanged in appearance. When accounting for differences in technique, no appreciable interval change in hazy bilateral airspace opacities with a mid and lower lung zone predominance. Small right pleural effusion is suspected. No pneumothorax. Stable cardiomediastinal contour. No acute osseous abnormality. IMPRESSION: 1. Interval advancement of endotracheal tube, now terminating approximately 2.7 cm above the fred. 2. No significant interval change in confluence bilateral airspace opacities compatible with multifocal pneumonia. Signed by: Dr. James Rios M.D. on 09/04/2019 8:18 AM
[2019-09-04] MEDS ORDERED: METHYLPREDNISOLONE SOD SUCC 125 MG/2ML VIAL IV ONE (08:30)
[2019-09-04] MEDS: METOPROLOL TARTRATE 25 MG TAB PO SCH ×2 (08:30→17:00)
[2019-09-04] MEDS: ALBUTEROL/IPRATROPIUM 3 ML NEB NEB SCH ×3 (09:00→22:35)
[2019-09-04] MEDS: CHOLECALCIFEROL 400 UNIT TAB PO SCH ×2 (09:30→18:43)
[2019-09-04] MEDS: ASCORBIC ACID 500 MG TAB PO SCH ×2 (09:30→18:43)
[2019-09-04] MEDS: ZINC SULFATE 220 MG CAP PO SCH (09:31)
[2019-09-04] MEDS: ENOXAPARIN SOD INJ 60 MG/0.6 ML SYR SC SCH ×2 (09:31→21:31)
[2019-09-04] MEDS: ALBUMIN 25% 25GM 100ML 100 ML IV SCH ×2 (09:31→18:43)
--- NOTE | 2019-09-04 09:35 | Progress Note ---
DATE: Pulmonary Critical Care Progress Note SUBJECTIVE: The patient is having some problems with high airway pressures and desaturations this morning. His tidal volume was reduced and his respiratory rate was increased. He is now on a PRVC at a rate of 30 with a tidal volume of 380. His PEEP is set at 14 and his FiO2 is 65%. His inspiratory time was increased to 0.8 seconds and his inspiratory rise was increased. The patient remains on rocuronium as well as Versed and fentanyl. PHYSICAL EXAMINATION: VITAL SIGNS: The patient is afebrile. The vital signs are significant for a blood pressure of 152/56 and the pulse is 98. Saturation is now 94% on the above ventilator settings. HEENT: Shows no facial swelling or erythema. There is oral endotracheal tube. CARDIAC: Reveals regular rate and rhythm with normal S1 and S2. LUNGS: Auscultation of lungs reveals crackles at the bases. There is no wheezing. ABDOMEN: Soft and nontender. There is no rebound or guarding. EXTREMITIES: Shows 1 to 2+ edema. The patient is currently sedated. He is on rocuronium at 0.08 as well as Versed 8 mg and fentanyl at 250 mcg. LABORATORY DATA: White blood cell count is 8.1 and the hemoglobin is 8.1. The platelet count is 122. BUN to creatinine ratio is normal. Other electrolytes were normal. The albumin is 1.7. RADIOGRAPHIC DATA: Chest x-ray shows confluent bilateral airspace disease. IMPRESSION: 1. Acute respiratory failure. 2. COVID-19 infection and viral pneumonia. 3. Thrombocytopenia. 4. Anemia, unspecified. 5. Hypertension. PLAN: 1. The patient will receive albumin and Lasix to help facilitate diuresis. 2. Continue current PRVC mode of ventilation and repeat ABG. 3. Place the patient in prone position later today. 4. Continue Lovenox. 5. Continue enteral feedings. 6. Solu-Medrol x1 and bronchodilators. 7. Case discussed with shift mgr nursing, day shift nursing, Respiratory, Infectious Disease, and administration. Greater than 35 minutes in direct critical care time. MD SAMINA Angel/ANGELA /[id number]
[2019-09-04 10:15] LABS: ALBUMIN 1.8 g/dL (3.5-5.0)
[2019-09-04] MEDS: FUROSEMIDE INJ 10 MG/ML 2 ML VIAL IV SCH ×2 (10:51→14:24)
[2019-09-04 11:04] LABS: BILIRUBIN,DIRECT 0.2 mg/dL (0.0-0.5)
--- NOTE | 2019-09-04 11:13 | Diagnostic Imaging Report ---
X-ray abdomen History: Distention Comparison: None. Findings: Suboptimal imaging with the study submitted on 2 images. A nasogastric tube is seen coursing down the expected path and then going across the midline and looping back so that the tip overlies L3 vertebra. There 2 is likely traveling across the pylorus ending in the third part of duodenum. There is no abnormal bowel distention. No calculi. No other acute abnormality. Dense opacities seen in both lung bases. Impression: As above. Signed by: Abe Brooks MD on 09/04/2019 11:10 AM
[2019-09-04] MEDS ORDERED: ALBUMIN 25% 25GM 100ML 0.25 GM/ML BTL IV SCH (12:00)
[2019-09-04 12:41] LABS: ABG HCO3 28 mmol/L (22-26); ABG PCO2 47 mmHg (35-45); ABG PH 7.39 (7.35-7.45); ABG PO2 75 mmHg (80-105)
[2019-09-04] MEDS ORDERED: ALBUTEROL/IPRATROPIUM 3 ML NEB ONE (14:11)
--- NOTE | 2019-09-04 15:20 | NUR ---
patient with fever seems worse patient is having some problems with high airway pressures and desaturations this morning. His tidal volume was reduced and his respiratory rate was increased. He is now on a PRVC at a rate of 30 with a tidal volume of 380. His PEEP is set at 14 and his FiO2 is 65%. His inspiratory time was increased to 0.8 seconds and his inspiratory rise was increased. The patient remains on rocuronium as well as Versed and fentanyl. PHYSICAL EXAMINATION: VITAL SIGNS: The patient is afebrile t max 101 . The vital signs are significant for a blood pressure of 152/56 and the pulse is 98. Saturation is now 94% on the above ventilator settings. HEENT: Shows no facial swelling or erythema. There is oral endotracheal tube. CARDIAC: Reveals regular rate and rhythm with normal S1 and S2. LUNGS: Auscultation of lungs reveals crackles at the bases. There is no wheezing. ABDOMEN: Soft and nontender. There is no rebound or guarding. EXTREMITIES: Shows 1 to 2+ edema. The patient is currently sedated. He is on rocuronium at 0.08 as well as Versed 8 mg and fentanyl at 250 mcg. LABORATORY DATA: White blood cell count is 8.1 and the hemoglobin is 8.1. The platelet count is 122. BUN to creatinine ratio is normal. Other electrolytes were normal. The albumin is 1.7. RADIOGRAPHIC DATA: Chest x-ray shows confluent bilateral airspace disease. IMPRESSION: concern aspiration pneumonia meropenem and vanc increase lovonox 1 mg per kg q 12h 1. Acute respiratory failure. 2. COVID-19 infection and viral pneumonia. 3. Thrombocytopenia. recheck 4. Anemia,
[2019-09-04] MEDS: VANCOMYCIN 1GM/NS 250 ML 250 ML IV SCH (18:43)
[2019-09-04] MEDS: MEROPENEM 1GM 100 ML IV SCH (18:43)
[2019-09-04 20:31] LABS: ABG HCO3 29 mmol/L (22-26); ABG PCO2 45 mmHg (35-45); ABG PH 7.42 (7.35-7.45); ABG PO2 72 mmHg (80-105)
--- NOTE | 2019-09-04 20:47 | Progress Note ---
DATE: 09/04/2019 Cardiology Progress Note SUBJECTIVE: Remains intubated and sedated, having a fever spike associated with tachycardia and decreased O2 saturations, requiring adjustments in ventilatory support. OBJECTIVE: VITAL SIGNS: Temperature 102 degrees, heart rate 104, sinus tachycardia on telemetry, respiratory rate 33, and blood pressure 108/58. GENERAL: Intubated, sedated. CHEST: With decreased breath sounds and rales. CARDIOVASCULAR: Regular rate and rhythm. Normal S1 and S2. ABDOMEN: Soft. EXTREMITIES: Trace edema. CARDIOVASCULAR MEDICATIONS: Reviewed. Lisinopril, metoprolol, and Lovenox. STUDIES: Reviewed. Creatinine 0.5. White blood cells 8, hemoglobin 8.1, and platelets 122. ASSESSMENT AND PLAN: 1. Acute respiratory failure. 2. Community-acquired COVID-19 pneumonia. 3. Hypertension. RECOMMEND: 1. Continue supportive care. Abdominal distention noted today. Further workup advised and discussed with nurse. 2. Continue Lovenox. Monitor H and H. John Romero MD [facility]/MODL /[id number]
--- NOTE | 2019-09-04 21:57 | Progress Note ---
DATE: 09/04/2019 CONSULTANTS: 1. Dr. Lowry, Veterinary Toxicologist. 2. Dr. Maguire, Infectious Disease. 3. Dr. Casas, Cardiology. CHIEF COMPLAINT: Shortness of breath, fever, and cough. SUBJECTIVE: The patient is seen in the ICU, remains intubated, noted. PEEP is again at 14. Was noted to have fever overnight. We will discuss with Infectious Disease for further recommendations. PHYSICAL EXAMINATION: VITAL SIGNS: Temperature 98.0, pulse is 74, respirations 29, blood pressure 118/61, pulse ox is 96% on the vent. GENERAL: Sedated, intubated. HEENT: Normocephalic, atraumatic. LUNGS: Decreased breath sounds. CARDIOVASCULAR: Regular rate and rhythm. GI: Soft and nontender. NEURO: Sedated. MUSCULOSKELETAL: No edema. : Ho. SKIN: Dry. LABORATORY DATA: WBC 8.11, hemoglobin 8.1, hematocrit 25.9. Sodium 138, potassium 3.6, CO2 27, creatinine 0.53, estimated GFR is greater than 60. Albumin 1.7, AST 24, ALT 26. IMAGING DATA: Chest x-ray with no significant interval change and confluent bilateral airspace opacity compatible with multifocal pneumonia. IMPRESSION: 1. Acute respiratory failure due to coronavirus disease-19 pneumonia versus multifocal pneumonia. He remains intubated and sedated. Vent management per minesweeping officer. Chest x-ray noted today with multifocal pneumonia. Started on Merrem and vancomycin per Infectious Disease. 2. Mild leukocytosis. Improved. 3. Hypertension. Stable. 4. Sinus tachycardia. Now normal sinus rhythm. Cardiology on the case. 5. Fever. Chest x-ray with multifocal pneumonia. Started on Merrem and vancomycin. 6. Anemia. Hemoglobin 8.1. We will continue to monitor. 7. Deep vein thrombosis prophylaxis. Continue Lovenox 60 mg b.i.d. per coronavirus disease protocol. Dictated by SNEHAL Laguerre Taylor Aparicio MD MY/MODL /[id number]
[2019-09-05] VITALS (21 sets, daily range): BP systolic 104–180; BP diastolic 54–98
[2019-09-05] MEDS: ALBUMIN 25% 25GM 100ML 100 ML IV SCH (00:42)
[2019-09-05] MEDS: MEROPENEM 1GM 100 ML IV SCH ×4 (00:43→23:30)
[2019-09-05] MEDS: PROPOFOL IV EMULSION 10MG/ML 100 ML IV PRN ×3 (02:00→12:30)
[2019-09-05] MEDS: ROCURONIUM BROMIDE 250 MG in SODIUM CHLORIDE 0.9% 250ML 225 ML IV PRN ×3 (04:08→21:17)
[2019-09-05] MEDS: MIDAZOLAM HCL 5MG/ML 10ML VIAL 100 ML IV PRN ×4 (04:08→21:17)
[2019-09-05] MEDS: VANCOMYCIN 1GM/NS 250 ML 250 ML IV SCH ×2 (04:20→19:40)
[2019-09-05 05:29] LABS: HEMATOCRIT 28.9 % (38.2-49.6); HEMOGLOBIN 9.5 g/dL (14.0-18.0); LYMPHOCYTES # (AUTO) 0.3 (1.0-3.2); LYMPHOCYTES % 4.4 % (18.0-39.1); MEAN CORPUSCULAR HEMOGLOBIN 30.4 pg (28-32); MEAN CORPUSCULAR HGB CONC 32.9 g/dL (31-35); MEAN CORPUSCULAR VOLUME 92.6 fL (81-99); MONOCYTES # (AUTO) 0.4 (0.2-0.8); MONOCYTES % 5.1 % (4.4-11.3); NEUTROPHILS # (AUTO) 6.7 (2.1-6.9); NEUTROPHILS % 89.4 % (38.7-80.0); PLATELET COUNT 150 x10e3/uL (140-360); RED BLOOD COUNT 3.12 x10e6/uL (4.3-5.7); RED CELL DISTRIBUTION WIDTH 11.8 % (11.7-14.4)
[2019-09-05 05:52] LABS: ALANINE AMINOTRANSFERASE 33 IU/L (0-55); ALKALINE PHOSPHATASE 60 IU/L (40-150); BLOOD UREA NITROGEN 21 mg/dL (7-26); BUN/CREATININE RATIO 33 (6-25); CALCIUM 8.5 mg/dL (8.4-10.2); CARBON DIOXIDE 29 mmol/L (22-29); CHLORIDE 104 mmol/L (98-107); CREATININE, SERUM 0.63 mg/dL (0.72-1.25); EST GLOMERULAR FILTRATION RATE > 60 ML/MIN (60-); GLUCOSE 122 mg/dL (74-118); SODIUM 141 mmol/L (136-145)
[2019-09-05] MEDS: ALBUTEROL/IPRATROPIUM 3 ML NEB NEB SCH ×3 (07:30→22:30)
[2019-09-05 07:42] LABS: BAND NEUTROPHILS % (MANUAL) 1 %; LYMPHOCYTES % (MANUAL) 3 % (19-48); MONOCYTES % (MANUAL) 1 % (3.4-9.0); MYELOCYTES % (MANUAL) 1 % (0-0); NEUTROPHILS % (MANUAL) 94 % (40-74); PLATELET ESTIMATE ADEQUATE; PLATELET MORPHOLOGY COMMENT NORMAL; RBC MORPHOLOGY COMMENT NORMAL
[2019-09-05] MEDS: ZINC SULFATE 220 MG CAP PO SCH (09:00)
[2019-09-05] MEDS: ASCORBIC ACID 500 MG TAB PO SCH ×2 (09:00→15:29)
[2019-09-05] MEDS: CHOLECALCIFEROL 400 UNIT TAB PO SCH ×2 (09:00→15:30)
[2019-09-05] MEDS: METOPROLOL TARTRATE 25 MG TAB PO SCH ×2 (09:00→15:29)
[2019-09-05] MEDS: FENTANYL 2000MCG/NS 250 250 ML IV PRN (09:27)
[2019-09-05] MEDS ORDERED: SODIUM CHLORIDE 0.9% 250ML 250 ML ONE (09:50)
[2019-09-05] MEDS ORDERED: MIDAZOLAM HCL 5MG/ML 10ML VIAL 100 ML BAG IV ONE (10:50)
[2019-09-05] MEDS: ENOXAPARIN SOD INJ 60 MG/0.6 ML SYR SC SCH ×2 (11:39→21:15)
[2019-09-05] MEDS ORDERED: FENTANYL 2,000 MCG/250 ML BAG ONE (12:00)
--- NOTE | 2019-09-05 12:30 | Progress Note ---
DATE: SUBJECTIVE: The patient is still on a PRVC mode of ventilation at a rate of 28 with a tidal volume of 380. The FiO2 is 70% and the PEEP is set at 15. He remains on fentanyl and Versed. He is also on rocuronium. He is afebrile. PHYSICAL EXAMINATION: VITAL SIGNS: The blood pressure is 117/67, saturation is 97%, and the pulse is 76. HEENT: Shows no facial swelling or erythema. CARDIAC: Reveals regular rate and rhythm with normal S1 and S2. LUNGS: Auscultation of lungs reveals rhonchorous breath sounds bilaterally. There is no wheezing. ABDOMEN: Soft and nontender. There is no rebound or guarding. EXTREMITIES: Shows no leg edema or calf tenderness. There is no cyanosis or clubbing. SKIN: Shows no rashes. NEUROLOGICAL: Shows no focal abnormalities. LABORATORY DATA: The white blood cell count is 7.5 and the hemoglobin is 9.5. The platelet count is 150. The BUN to creatinine ratio is 21 to 0.63. Albumin is 3. IMPRESSION: 1. Acute respiratory failure. 2. COVID-19 and viral pneumonia. 3. Hypertension. 4. Anemia, unspecified. 5. Thrombocytopenia. PLAN: 1. Continue current mode of ventilation and repeat ABG. 2. Switch back from prone position to supine position. 3. Continue Lovenox. 4. Continue enteral feedings. 5. Continue bronchodilators. 6. Case discussed with internet webmaster nursing, day shift nursing, Respiratory, Infectious Disease, and administration. Greater than 35 minutes in direct critical care time. Maximilian Lowry MD [facility]YES[facility] /[id number]
[2019-09-05 13:02] LABS: ABG HCO3 30 mmol/L (22-26); ABG PCO2 53 mmHg (35-45); ABG PH 7.36 (7.35-7.45); ABG PO2 80 mmHg (80-105)
[2019-09-05] MEDS ORDERED: MIDAZOLAM HCL 5MG/ML 10ML VIAL 100 ML IV ONE (14:34)
[2019-09-05] MEDS: HYDRALAZINE HCL 20 MG/ML VIAL IV PRN (17:06)
--- NOTE | 2019-09-05 17:50 | NUR ---
Nutrition Intervention Note RD Recommendation(s) for Physician: - Recommend TF change to Vital HP with goal rate of 55 ml/hr (to provide 1320 kcal and 116 gm protein). Remaining kcal provided by Propofol. - Water flushes/fluid management per MD. - Propofol providing an additional 238 lipid kcal/day. Plan of Care: RD following, TF rec's, monitor adequacy and tolerance Nutrition reason for involvement: follow up RD Assessment 09/04: Follow up. Pt remains intubated and sedated. Pt is receiving 9 mL/hr of propofol per documentation, which provides 238 lipid kcal. TF was at 20 mL/hr per chart yesterday. No additional administration rate is available. Will continue to monitor. 09/02: Follow up. Pt remains intubated, paralyzed, and sedated on Propofol and Versed. Pt requiring proning. TF rate at 10 ml/hr per TF documentation yesterday- inadequate EN currently, no additional EN administration available per chart. Recommend continuing EN while pt is proned by placing them in reverse Trendelenburg position. If unable to advance TF to goal rate, recommend considering PN. Chart reviewed. Will continue to monitor. Initial encounter with patient. Pt is sedated and orally intubated. Pt was not able to provide a nutrition Hx at the time of visit. Unable to observe oral cavity or perform a nutrition focused physical exam. Jevity 1.2 infusing at 20ml hr with a goal of 50ml/hr. Propofol provides 1.1kcal/ml EN provides 576 kcals, 26.64g of protein, and 387.36ml of free H2O Principal Problems/Diagnoses: CoVID 19 pneumonia PMH:No significant medical Hx, overweight/obesity GI: LBM 08/29, firm, round abdomen Skin: Intact Labs: 09/04: Na 141, K 4.0, BUN 21, Cr 0.63, Glu 122 09/02: Na 139, K 4.2, BUN 19, Cr 0.61, Gluc 101 Meds: propofol, rocuronium, meropenem, midazolam, fentanyl, antibiotic, KCl, vitamin D, vitamin C, zinc sulfate, metoprolol, hydralazine Ht: 67 in. Wt: 220 lbs (09/04) 215.31lb (09/02), 200.44lbs (08/29) BMI: 31.4kg/m2 (weight used- 200 lbs) IBW: 148 lbs Malnutrition Evaluation (08/30/2019) The patient does not meet criteria for a specified degree of malnutrition at this time. Will re-evaluate at follow-up as appropriate. Unable to assess due to current isolation precautions. Nutrition Prescription (Diet Order): TF Jevity 1.2 at 50 ml/hr (1440 kcal and 67 gm protein) Estimated Nutritional Needs: 1534-6715 calories/day (22-25 kcal/kg/IBW) 101-135 g protein/day (1.5-2 g pro/kg/IBW) Diet Adequacy: Not meeting calorie needs, Not meeting protein needs Diet Education Needs Assessment: Diet education not indicated. Nutrition Care Level: high- not meeting needs Nutrition Diagnosis: Inadequate energy and protein intake related to intubation as evidenced by requiring EN on vent. Goal: Patient will meet 75-100% of estimated needs by follow up Progress: goal not met Interventions: EN- Composition, Rate, Route Monitoring/Evaluation: Total energy intake, Total protein intake, Formula/Solution, Prescription medication, Weight change Signed: Nina Reese RD, LD
[2019-09-05 20:48] LABS: ABG PH 7.32 (7.35-7.45)
[2019-09-05 20:49] LABS: ABG HCO3 30 mmol/L (22-26); ABG PCO2 58 mmHg (35-45); ABG PO2 96 mmHg (80-105)
--- NOTE | 2019-09-05 22:22 | Progress Note ---
DATE: 09/05/2019 Cardiology Progress note SUBJECTIVE: Intubated sedated, prone position. OBJECTIVE: VITAL SIGNS: Temperature 98.1, heart rate 105, blood pressure 153/94, respiratory rate 30, O2 saturation 100%. BMI 34.4. GENERAL: Intubated and sedated, prone position. CHEST: With the rales. Decreased breath sounds. CARDIOVASCULAR: Regular rate and rhythm. Distant heart sounds. On telemetry, sinus tachycardia. ABDOMEN: Unable to assess given prone position. EXTREMITIES: Trace edema to lower extremities, euthermic. CARDIOVASCULAR MEDICATIONS: Reviewed. Lisinopril 40 mg daily, metoprolol 12.5 mg b.i.d., Lovenox 60 mg q.12 hours, hydralazine 10 mg q.4 hours. LABORATORY STUDIES: Reviewed. Sodium 141, potassium 4, chloride 104, bicarbonate 29, BUN 21, creatinine 0.86, glucose 122. White blood cells 7.5, hemoglobin 9.5, platelets 150. INR 0.9, PT 12.7, PTT 38.4. AST 26, ALT 33, alkaline phosphatase 60. ASSESSMENT AND PLAN: A 44-year-old man with coronavirus disease-19 infection, community-acquired pneumonia, acute respiratory failure, hypertension, status post septic shock, anemia. RECOMMEND: Continue supportive care. Continue antihypertensives. MD OPAL [facility]/ANGELA /[id number]
--- NOTE | 2019-09-05 23:13 | Progress Note ---
DATE: 09/05/2019 CONSULTANTS: 1. Dr. Lowry with motor lodge clerk. 2. Dr. Maguire with Infectious Disease. 3. Dr. Casas with Cardiology. CHIEF COMPLAINT: Shortness of breath, fever, and cough due to COVID. SUBJECTIVE: The patient is seen in the ICU, intubated and sedated. He is on prone position, PEEP is at 15. No events overnight. PHYSICAL EXAMINATION: VITAL SIGNS: Temperature 98.1, pulse is 105, respirations 30, blood pressure 153/94, pulse ox is 96% on the vent. GENERAL: Sedated. HEENT: Normocephalic, atraumatic. LUNGS: Decreased breath sounds. CARDIOVASCULAR: Regular rate and rhythm. GI: Soft and nontender. NEURO: Sedated. MUSCULOSKELETAL: No edema. : Ho. SKIN: Dry. LABORATORY DATA: WBC 7.50, hemoglobin 9.5, hematocrit 28.9, platelet 150. Sodium 141, potassium 4.0, CO2 of 29, creatinine 0.63, estimated GFR is greater than 60. Blood glucose 122, AST 26, and ALT 33. IMPRESSION: 1. Acute respiratory failure due to coronavirus COVID-19 pneumonia versus multifocal pneumonia. He remains intubated and sedated. Vent management per motor lodge clerk. Continue on Merrem and vancomycin per ID. 2. Mild leukocytosis. Resolved. 3. Hypertension. Stable beta-blockers as needed. 4. Fever, now improved. Chest x-ray with multifocal pneumonia. Resume Merrem and vancomycin. 5. Anemia. Hemoglobin 9.5. We will continue to monitor. 6. Deep vein thrombosis prophylaxis. Continue Lovenox b.i.d. PLAN: To continue supportive care, IV antibiotics, further recommendations per motor lodge clerk and ID. Dictated by SNEHAL Laguerre Taylor Aparicio MD MY/MODL /[id number]
[2019-09-06] VITALS (26 sets, daily range): BP systolic 104–213; BP diastolic 50–95
[2019-09-06] MEDS: ALBUTEROL/IPRATROPIUM 3 ML NEB NEB SCH ×3 (00:10→15:05)
--- NOTE | 2019-09-06 00:24 | Diagnostic Imaging Report ---
EXAMINATION: CHEST SINGLE (PORTABLE) INDICATION: Respiratory failure COMPARISON: Chest x-ray 09/04/2019 FINDINGS: TUBES and LINES: ET tube tip 3.8 cm above fred. Enteric tube courses into abdomen, tip out of field of view. Right IJ central venous catheter, tip in the proximal right atrium. LUNGS: Normal lung volumes. Extensive hazy airspace disease in both lungs. PLEURA: Small right pleural effusion. No pneumothorax. HEART AND MEDIASTINUM: The cardiomediastinal silhouette is unremarkable. BONES AND SOFT TISSUES: No acute osseous lesion. Soft tissues are unremarkable. UPPER ABDOMEN: No free air under the diaphragm. IMPRESSION: Lines and tubes as above. Extensive pneumonia. Small right pleural effusion. Signed by: Colby Rolle DO on 09/06/2019 12:21 AM
[2019-09-06] MEDS: FENTANYL 2000MCG/NS 250 250 ML IV PRN ×3 (00:30→23:41)
[2019-09-06] MEDS: PROPOFOL IV EMULSION 10MG/ML 100 ML IV PRN ×6 (00:50→23:42)
[2019-09-06] MEDS: MIDAZOLAM HCL 5MG/ML 10ML VIAL 100 ML IV PRN ×4 (02:19→18:41)
[2019-09-06] MEDS: ROCURONIUM BROMIDE 250 MG in SODIUM CHLORIDE 0.9% 250ML 225 ML IV PRN ×2 (02:31→17:47)
[2019-09-06] MEDS: HYDRALAZINE HCL 20 MG/ML VIAL IV PRN (03:03)
[2019-09-06] MEDS ORDERED: LABETALOL HCL 20 ML ONE (03:45)
[2019-09-06] MEDS: VANCOMYCIN 1GM/NS 250 ML 250 ML IV SCH ×2 (05:45→16:32)
[2019-09-06 05:51] LABS: BASOPHILS % 0.2 % (0.0-1.0); EOSINOPHILS # (AUTO) 0.1 (0.0-0.4); EOSINOPHILS % 0.7 % (0.0-6.0); HEMATOCRIT 32.9 % (38.2-49.6); HEMOGLOBIN 10.2 g/dL (14.0-18.0); LYMPHOCYTES # (AUTO) 0.5 (1.0-3.2); MEAN CORPUSCULAR HEMOGLOBIN 29.1 pg (28-32); MEAN CORPUSCULAR VOLUME 93.7 fL (81-99); MONOCYTES % 5.9 % (4.4-11.3); NEUTROPHILS # (AUTO) 14.6 (2.1-6.9); NEUTROPHILS % 88.9 % (38.7-80.0); PLATELET COUNT 267 x10e3/uL (140-360); RED BLOOD COUNT 3.51 x10e6/uL (4.3-5.7); RED CELL DISTRIBUTION WIDTH 12.7 % (11.7-14.4)
[2019-09-06 06:05] LABS: ALANINE AMINOTRANSFERASE 42 IU/L (0-55); ALBUMIN 2.6 g/dL (3.5-5.0); ALBUMIN/GLOBULIN RATIO 0.9 (0.8-2.0); ALKALINE PHOSPHATASE 61 IU/L (40-150); ANION GAP 11.9 mmol/L (8-16); BLOOD UREA NITROGEN 19 mg/dL (7-26); BUN/CREATININE RATIO 32 (6-25); CARBON DIOXIDE 27 mmol/L (22-29); CHLORIDE 109 mmol/L (98-107); CREATININE, SERUM 0.59 mg/dL (0.72-1.25); EST GLOMERULAR FILTRATION RATE > 60 ML/MIN (60-); GLUCOSE 136 mg/dL (74-118); POTASSIUM 3.9 mmol/L (3.5-5.1); SODIUM 144 mmol/L (136-145)
[2019-09-06] MEDS: ZINC SULFATE 220 MG CAP PO SCH (09:00)
[2019-09-06 09:18] LABS: ABG HCO3 30 mmol/L (22-26); ABG PCO2 56 mmHg (35-45); ABG PH 7.33 (7.35-7.45); ABG PO2 90 mmHg (80-105)
--- NOTE | 2019-09-06 09:39 | Progress Note ---
DATE: SUBJECTIVE: The patient remains on mechanical ventilation. He is on a PRVC mode of ventilation set at a rate of 30 with a tidal volume of 380. His PEEP is set at 14 with FiO2 of 70%. His peak airway pressure is 39. His mean airway pressure is 24. He remains on rocuronium as well as fentanyl and Versed. PHYSICAL EXAMINATION: VITAL SIGNS: The patient is afebrile. The blood pressure is 115/67, saturation is 95% and the pulse is 107. GENERAL: He has an oral endotracheal tube. CARDIAC: Reveals regular rate and rhythm with normal S1 and S2. LUNGS: Auscultation of lungs reveals crackles at the bases. There is no wheezing. ABDOMEN: Soft, nontender. He has an arterial line in place as well as a PICC line. He has mild leg edema. NEUROLOGIC: Shows him to be sedated at this time. LABORATORY DATA: White blood cell count is 16.4 and hemoglobin is 10.2. The platelet count is 267. The BUN to creatinine ratio is normal. The other electrolytes are within normal limits. RADIOGRAPHIC DATA: Chest x-ray shows continued bilateral infiltrates. IMPRESSION: 1. Acute respiratory failure. 2. Coronavirus disease-2019 viral pneumonia. 3. Hypertension. 4. Anemia, unspecified. PLAN: 1. Continue current mode of ventilation and repeat ABG later today. 2. Continue Lovenox. 3. Continue enteral feedings. 4. Continue bronchodilators. 5. Continue to monitor blood counts. Case discussed with nightshift nursing, dayshift nursing, Respiratory, and Infectious Disease. Attempted to call family last night, but there was no answer. We will attempt later today. Greater than 35 minutes in direct critical care time. Maximilian Lowry MD [facility]/MODL /[id number]
[2019-09-06] MEDS: LABETALOL HCL 5 MG/ML 20ML VIAL IV PRN (09:50)
[2019-09-06] MEDS: MEROPENEM 1GM 100 ML IV SCH ×3 (09:53→23:40)
[2019-09-06] MEDS: ASCORBIC ACID 500 MG TAB PO SCH ×2 (09:54→16:33)
[2019-09-06] MEDS: METOPROLOL TARTRATE 25 MG TAB PO SCH ×2 (09:54→16:33)
[2019-09-06] MEDS: CHOLECALCIFEROL 400 UNIT TAB PO SCH ×2 (09:55→16:33)
[2019-09-06] MEDS: ENOXAPARIN SOD INJ 60 MG/0.6 ML SYR SC SCH ×2 (09:56→20:11)
--- NOTE | 2019-09-06 10:02 | Diagnostic Imaging Report ---
EXAMINATION: CHEST SINGLE (PORTABLE) INDICATION: resp failure COMPARISON: Multiple prior chest x-ray examinations most recent dated 09/05/2019 FINDINGS: AP view TUBES and LINES: ET tube tip 5.5 cm above fred. Enteric tube courses into abdomen, tip out of field of view. There is a left-sided PICC line in place with distal tip in SVC. LUNGS/PLEURA: Lungs are well inflated. There are unchanged bilateral patchy opacities compatible with pneumonia. There is no pleural effusion or pneumothorax. HEART AND MEDIASTINUM: The cardiomediastinal silhouette is unremarkable. BONES AND SOFT TISSUES: No acute osseous lesion. Soft tissues are unremarkable. UPPER ABDOMEN: No free air under the diaphragm. IMPRESSION: Unchanged bilateral patchy opacities compatible with pneumonia. Signed by: Chirag Polanco MD on 09/06/2019 9:59 AM
[2019-09-06] MEDS ORDERED: PROPOFOL IV EMULSION 10 MG/ML 50 ML VIAL IV ONE (12:00)
--- NOTE | 2019-09-06 17:40 | Progress Note ---
DATE: 09/06/2019 Cardiology Progress Note SUBJECTIVE: Remains intubated and sedated. OBJECTIVE: VITAL SIGNS: Temperature 97 degrees, heart rate 112, blood pressure 100/70, respiratory rate 22, O2 saturation 95%. GENERAL: Intubated, sedated. CHEST: With decreased breath sounds and scattered rales. CARDIOVASCULAR: Regular rate and rhythm. Normal S1, S2. ABDOMEN: Soft. Bowel sounds positive. EXTREMITIES: No edema. Warm distal extremities. MEDICATIONS: Cardiovascular medications reviewed. Lisinopril, metoprolol, Lovenox, hydralazine p.r.n. LABORATORY DATA: Studies reviewed. Creatinine 0.5. White blood cells 16, hemoglobin 10, platelets 267. INR 0.9. ASSESSMENT: A 44-year-old man presents with acute respiratory failure, requiring ventilatory support in the setting of coronavirus disease pneumonia, coronavirus disease-19 infection, hypertension, morbid obesity. RECOMMENDATIONS: 1. Continue Lovenox. 2. Continue current antihypertensive medications. 3. Continue supportive care. Monitor H and H. MD OPAL [facility]/MODL /[id number]
[2019-09-06 21:38] LABS: ABG PCO2 81 mmHg (35-45); ABG PH 7.22 (7.35-7.45)
[2019-09-06 21:39] LABS: ABG HCO3 33 mmol/L (22-26); ABG PO2 80 mmHg (80-105)
--- NOTE | 2019-09-06 22:41 | Progress Note ---
DATE: 09/06/2019 CONSULTANTS: 1. Dr. Lowry, rope coiling machine operator. 2. Dr. Maguire with Infectious Disease. 3. Dr. Casas with Cardiology. CHIEF COMPLAINT: Shortness of breath, fever and cough due to COVID-19. SUBJECTIVE: The patient is seen and examined in the ICU, remains intubated and sedated. PEEP on the vent is set at 14, saturating greater than 95%. No events overnight. PHYSICAL EXAMINATION: VITAL SIGNS: Temperature 97.0, pulse is 103, respirations 30, blood pressure 118/54, pulse ox is 94% on the vent. GENERAL: Sedated, intubated. HEENT: Normocephalic, atraumatic. LUNGS: Decreased breath sounds. CARDIOVASCULAR: Regular rate and rhythm, at times tachy. GI: Soft and nontender. NEURO: Sedated. MUSCULOSKELETAL: No edema. : Ho draining clear yellow urine. SKIN: Dry. LABORATORY DATA: WBC 16.48, hemoglobin 10.2, hematocrit 32.9, platelets 267. Sodium 144, potassium 3.9, BUN is 19, creatinine 0.59, albumin 2.6, total protein 5.6. Chest x-ray; unchanged bilateral patchy opacities compatible with pneumonia. IMPRESSION: 1. Acute respiratory failure due to COVID-19 pneumonia versus multifocal pneumonia. He remains intubated and sedated. Continue on Merrem and vancomycin per ID. Vent management per rope coiling machine operator. 2. Leukocytosis. Resume Merrem and vancomycin per ID. 3. Hypertension. Stable on beta blockers as needed. 4. Sinus tachycardia. Beta-blockers as needed. Cardiology on the case. 5. Anemia. Hemoglobin is stable at 10. We will continue to monitor closely. 6. Deep vein thrombosis prophylaxis. Continue on Lovenox b.i.d. Dictated by SNEHAL Laguerre Taylor Aparicio MD MY/MODL /[id number] Pt seen and examined on 09/06/19. Agree with the findings and plan as documented by SNEHAL Haywood. MTDD
[2019-09-07] VITALS (28 sets, daily range): BP systolic 92–186; BP diastolic 43–87
[2019-09-07] MEDS: MIDAZOLAM HCL 5MG/ML 10ML VIAL 100 ML IV PRN ×4 (01:14→17:41)
[2019-09-07] MEDS: ROCURONIUM BROMIDE 250 MG in SODIUM CHLORIDE 0.9% 250ML 225 ML IV PRN ×3 (01:14→17:41)
[2019-09-07] MEDS: ALBUTEROL/IPRATROPIUM 3 ML NEB NEB SCH ×3 (02:35→15:20)
[2019-09-07] MEDS: PROPOFOL IV EMULSION 10MG/ML 100 ML IV PRN ×3 (05:00→23:30)
[2019-09-07 05:52] LABS: BASOPHILS % 0.1 % (0.0-1.0); EOSINOPHILS # (AUTO) 0.1 (0.0-0.4); EOSINOPHILS % 0.7 % (0.0-6.0); HEMATOCRIT 29.6 % (38.2-49.6); HEMOGLOBIN 9.1 g/dL (14.0-18.0); LYMPHOCYTES # (AUTO) 0.4 (1.0-3.2); LYMPHOCYTES % 3.6 % (18.0-39.1); MEAN CORPUSCULAR HEMOGLOBIN 30.2 pg (28-32); MEAN CORPUSCULAR HGB CONC 30.7 g/dL (31-35); MEAN CORPUSCULAR VOLUME 98.3 fL (81-99); MONOCYTES # (AUTO) 0.6 (0.2-0.8); MONOCYTES % 5.4 % (4.4-11.3); NEUTROPHILS # (AUTO) 10.1 (2.1-6.9); NEUTROPHILS % 89.6 % (38.7-80.0); PLATELET COUNT 194 x10e3/uL (140-360); RED BLOOD COUNT 3.01 x10e6/uL (4.3-5.7); RED CELL DISTRIBUTION WIDTH 12.8 % (11.7-14.4)
[2019-09-07] MEDS: VANCOMYCIN 1GM/NS 250 ML 250 ML IV SCH ×2 (05:54→16:58)
[2019-09-07] MEDS: FENTANYL 2000MCG/NS 250 250 ML IV PRN ×3 (05:59→16:58)
[2019-09-07 06:14] LABS: ALANINE AMINOTRANSFERASE 43 IU/L (0-55); ALBUMIN 2.3 g/dL (3.5-5.0); ALBUMIN/GLOBULIN RATIO 0.8 (0.8-2.0); ALKALINE PHOSPHATASE 71 IU/L (40-150); ANION GAP 8.2 mmol/L (8-16); BLOOD UREA NITROGEN 14 mg/dL (7-26); BUN/CREATININE RATIO 26 (6-25); CALCIUM 8.3 mg/dL (8.4-10.2); CARBON DIOXIDE 33 mmol/L (22-29); CHLORIDE 107 mmol/L (98-107); CREATININE, SERUM 0.54 mg/dL (0.72-1.25); EST GLOMERULAR FILTRATION RATE > 60 ML/MIN (60-); GLUCOSE 108 mg/dL (74-118); POTASSIUM 4.2 mmol/L (3.5-5.1); SODIUM 144 mmol/L (136-145)
[2019-09-07] MEDS: MEROPENEM 1GM 100 ML IV SCH ×3 (07:30→23:28)
[2019-09-07] MEDS: METOPROLOL TARTRATE 25 MG TAB PO SCH ×2 (07:36→16:59)
[2019-09-07] MEDS: ZINC SULFATE 220 MG CAP PO SCH (07:37)
[2019-09-07] MEDS: ASCORBIC ACID 500 MG TAB PO SCH ×2 (07:37→16:59)
[2019-09-07] MEDS: CHOLECALCIFEROL 400 UNIT TAB PO SCH ×2 (07:37→16:59)
[2019-09-07] MEDS: ENOXAPARIN SOD INJ 60 MG/0.6 ML SYR SC SCH ×2 (07:37→19:53)
--- NOTE | 2019-09-07 08:28 | Diagnostic Imaging Report ---
Examination: Single AP view of the chest. COMPARISON: 09/06/2019 INDICATION: Respiratory failure DISCUSSION: Lines/tubes: Endotracheal and enteric tubes stable in position. Lungs: Stable bilateral airspace consolidations. Pleura: There is no pleural effusion or pneumothorax. Heart and mediastinum: The heart and the mediastinum are unremarkable. Bones and soft tissues: No acute bony abnormalities. IMPRESSION: 1. Stable airspace consolidations Signed by: Dr. Nathen Kang M.D. on 09/07/2019 8:25 AM
[2019-09-07 09:29] LABS: ABG HCO3 33 mmol/L (22-26); ABG PCO2 61 mmHg (35-45); ABG PH 7.33 (7.35-7.45); ABG PO2 85 mmHg (80-105)
--- NOTE | 2019-09-07 12:18 | Progress Note ---
DATE: SUBJECTIVE: The patient is afebrile. Blood pressure is stable. He remains on a PRVC mode of ventilation at a rate of 30 with a tidal volume of 380 and a PEEP of 14. His FiO2 is set at 70%. PHYSICAL EXAMINATION: VITAL SIGNS: Blood pressure is 100/51, pulse is 104. HEENT: No facial swelling or erythema. LYMPHATIC: No submandibular, cervical, or supraclavicular adenopathy. CARDIAC: Regular rate and rhythm with normal S1 and S2. LUNGS: Auscultation of the lungs reveals rhonchorous breath sounds bilaterally. There is no wheezing. ABDOMEN: Soft and nontender. There is no rebound or guarding. EXTREMITIES: No leg edema or calf tenderness. There is no cyanosis or clubbing. SKIN: No rashes. LABORATORY DATA: White blood cell count is 11.2 and hemoglobin is 9.1. The platelet count is 194,000. The BUN to creatinine ratio is 14 and 0.54. Albumin is 2.3. Other electrolytes are within normal limits. ABG 7.33, 61, 85 and 33. RADIOGRAPHIC DATA: Chest x-ray shows bilateral infiltrates. IMPRESSION: 1. Acute respiratory failure. 2. COVID-19 and viral pneumonia. 3. Hypertension. 4. Anemia. PLAN: 1. Continue current ventilation and repeat ABG. 2. Try and wean rocuronium. 3. Continue enteral feedings. 4. Continue current antibiotics. 5. Continue to monitor blood counts. 6. Continue Lovenox. 7. Case discussed with nightshift nursing, dayshift nursing, Respiratory, and Infectious Disease. Greater than 35 minutes in direct critical care time. Maximilian Lowry MD [facility]/MODL /[id number]
[2019-09-07] MEDS ORDERED: FUROSEMIDE INJ 10 MG/ML 2 ML VIAL IV NR (14:30)
[2019-09-07] MEDS ORDERED: LACTULOSE SYRUP 20 GM/30 ML UDC PO NR (14:30)
[2019-09-07] MEDS: ACETAMINOPHEN 325 MG TAB PO PRN (14:53)
[2019-09-07] MEDS: DOCUSATE SODIUM LIQD 100 MG/10 ML UDC NG SCH (16:58)
[2019-09-07 19:34] LABS: ABG HCO3 34 mmol/L (22-26); ABG PCO2 56 mmHg (35-45); ABG PH 7.39 (7.35-7.45); ABG PO2 87 mmHg (80-105)
--- NOTE | 2019-09-07 21:01 | Progress Note ---
DATE: 09/07/2019 Cardiology Progress Note SUBJECTIVE: Intubated and sedated. OBJECTIVE: VITAL SIGNS: Temperature of 100.1, heart rate 106, sinus tachycardia on telemetry, respiratory rate 32, blood pressure 125/57, and O2 saturation 95% on vent support. GENERAL: Intubated and sedated. CHEST: With rales. Decreased breath sounds. CARDIOVASCULAR: Regular rate and rhythm. Normal S1 and S2. Sinus tachycardia. No S3 or S4. ABDOMEN: Soft. Bowel sounds positive. EXTREMITIES: Trace edema. Warm extremities. CARDIOVASCULAR MEDICATIONS: Reviewed. Lovenox 60 mg q.12 hours, metoprolol tartrate 12.5 mg b.i.d. on hold. LABORATORY DATA: White blood cells 11, hemoglobin 9, and platelets 194. Creatinine 0.5, glucose 136, AST 29, and ALT 43. ABG 7.39/56/87. ASSESSMENT AND PLAN: COVID-19 infection, viral pneumonia, and acute respiratory failure requiring vent support, hypertension, anemia. RECOMMEND: Continue current supportive measures including Lovenox. Still requiring significant vent support. Blood pressure at goal. John Romero MD [facility]/MODL /[id number]
--- NOTE | 2019-09-07 21:18 | NUR ---
Called Dr. Maguire to report the critical lab for positive blood culture Gram positive rods from sample collected 09/04/2019 @ 10:25am
[2019-09-07] MEDS ORDERED: ALBUMIN 25% 12.5GM 50ML 200 ML IV ONE (21:21)
[2019-09-07] MEDS: ALBUMIN 25% 25GM 100ML 0.25 GM/ML BTL IV SCH (21:46)
--- NOTE | 2019-09-07 22:51 | Progress Note ---
DATE: 09/07/2019 CONSULTANTS: 1. Dr. Lowry, mainframe developer. 2. Dr. Maguire, Infectious Disease. 3. Dr. Casas with Cardiology. CHIEF COMPLAINT: Shortness of breath, fever, and cough due to COVID-19. SUBJECTIVE: The patient is sedated and intubated in ICU, PEEP in remains at 14, saturating greater than 95%. Bowel sounds hypoactive, reported constipation per staff. PHYSICAL EXAMINATION: VITAL SIGNS: Temperature 100.1, pulse 104, respirations 32, blood pressure 162/71, and pulse ox is 94% on the vent. GENERAL: Sedated and intubated. HEENT: Normocephalic and atraumatic. LUNGS: With decreased breath sounds. CARDIOVASCULAR: Regular rate and rhythm. GI: Soft. Hypoactive bowel sounds. NEURO: Sedated. MUSCULOSKELETAL: No edema. : Ho. SKIN: Dry. LABORATORY DATA: WBC is 11.27, hemoglobin 9.1, and hematocrit 29.6. Sodium 144, potassium 4.2, CO2 33, BUN 14, and creatinine 0.54. Chest x-ray shows stable airspace consolidation. IMPRESSION: 1. Acute respiratory failure due to COVID-19 pneumonia versus hospital-acquired pneumonia. He remains intubated and sedated. Continue on Merrem and vancomycin per ID. Vent management per Dr. Lowry, mainframe developer. 2. Fever and leukocytosis. WBC is improving. Continue on vancomycin and Merrem. Tylenol for fever as needed. 3. Hypertension. Beta blockers as needed. 4. Chronic anemia. Hemoglobin is 9.1. We will continue to monitor closely. 5. Constipation. Colace b.i.d. and lactulose x1 ordered. 6. Deep vein thrombosis prophylaxis. Continue Lovenox 60 mg b.i.d. PLAN: Continue current treatment, repeat labs in a.m., further recommendations per mainframe developer and ID. Dictated by SNEHAL Laguerre Taylor Aparicio MD MY/MODL /[id number] The patient is seen and examined on 09/07/19, discussed with Dr. Max Lowry. Agree with the findings and plan as documented by SNEHAL Haywood. YOSVANY
[2019-09-07] MEDS: LABETALOL HCL 5 MG/ML 20ML VIAL IV PRN (23:00)
[2019-09-08] VITALS (29 sets, daily range): BP systolic 90–200; BP diastolic 42–140
[2019-09-08] MEDS: ROCURONIUM BROMIDE 250 MG in SODIUM CHLORIDE 0.9% 250ML 225 ML IV PRN ×3 (00:34→22:30)
[2019-09-08] MEDS: FENTANYL 2000MCG/NS 250 250 ML IV PRN ×3 (02:49→17:08)
[2019-09-08] MEDS: MIDAZOLAM HCL 5MG/ML 10ML VIAL 100 ML IV PRN ×3 (03:30→21:00)
[2019-09-08] MEDS: PROPOFOL IV EMULSION 10MG/ML 100 ML IV PRN ×3 (05:00→22:00)
[2019-09-08] MEDS: VANCOMYCIN 1GM/NS 250 ML 250 ML IV SCH (05:20)
[2019-09-08] MEDS: ALBUMIN 25% 25GM 100ML 0.25 GM/ML BTL IV SCH (06:00)
[2019-09-08 06:34] LABS: BASOPHILS % 0.2 % (0.0-1.0); EOSINOPHILS # (AUTO) 0.1 (0.0-0.4); EOSINOPHILS % 1.7 % (0.0-6.0); HEMATOCRIT 23.6 % (38.2-49.6); HEMOGLOBIN 7.6 g/dL (14.0-18.0); LYMPHOCYTES # (AUTO) 0.6 (1.0-3.2); LYMPHOCYTES % 8.5 % (18.0-39.1); MEAN CORPUSCULAR HGB CONC 32.2 g/dL (31-35); MEAN CORPUSCULAR VOLUME 96.3 fL (81-99); MONOCYTES # (AUTO) 0.3 (0.2-0.8); NEUTROPHILS # (AUTO) 5.5 (2.1-6.9); NEUTROPHILS % 84.8 % (38.7-80.0); PLATELET COUNT 174 x10e3/uL (140-360); RED BLOOD COUNT 2.45 x10e6/uL (4.3-5.7); RED CELL DISTRIBUTION WIDTH 12.6 % (11.7-14.4)
[2019-09-08 06:50] LABS: ANION GAP 7.8 mmol/L (8-16); BLOOD UREA NITROGEN 13 mg/dL (7-26); BUN/CREATININE RATIO 25 (6-25); CALCIUM 7.8 mg/dL (8.4-10.2); CARBON DIOXIDE 34 mmol/L (22-29); CHLORIDE 106 mmol/L (98-107); CREATININE, SERUM 0.52 mg/dL (0.72-1.25); EST GLOMERULAR FILTRATION RATE > 60 ML/MIN (60-); GLUCOSE 92 mg/dL (74-118); POTASSIUM 3.8 mmol/L (3.5-5.1); SODIUM 144 mmol/L (136-145)
[2019-09-08] MEDS: ALBUTEROL/IPRATROPIUM 3 ML NEB NEB SCH ×3 (08:00→22:40)
[2019-09-08] MEDS: MEROPENEM 1GM 100 ML IV SCH ×2 (08:13→17:06)
[2019-09-08] MEDS: ASCORBIC ACID 500 MG TAB PO SCH ×2 (08:13→17:10)
[2019-09-08] MEDS ORDERED: ALBUTEROL/IPRATROPIUM 3 ML NEB ONE (08:33)
[2019-09-08] MEDS: DOCUSATE SODIUM LIQD 100 MG/10 ML UDC NG SCH ×2 (08:48→17:00)
[2019-09-08] MEDS: CHOLECALCIFEROL 400 UNIT TAB PO SCH ×2 (08:48→17:10)
--- NOTE | 2019-09-08 08:59 | Diagnostic Imaging Report ---
EXAMINATION: CHEST SINGLE (PORTABLE) INDICATION: Pneumonia COMPARISON: Chest radiograph 09/07/2019 FINDINGS: LINES/TUBES:Endotracheal tube terminates approximately 3 cm above the fred. Enteric tube unchanged. Left PICC line terminates in the SVC. LUNGS:The lung volumes are low. Unchanged multifocal bilateral airspace opacities. PLEURA:No pleural effusion or pneumothorax. MEDIASTINUM:The cardiomediastinal silhouette appears unchanged in size and shape. BONES/SOFT TISSUES:No acute osseous injury. ABDOMEN:No free air under the diaphragm. IMPRESSION: No significant interval change. Signed by: Farrah Pierson MD on 09/08/2019 8:56 AM
[2019-09-08] MEDS: ZINC SULFATE 220 MG CAP PO SCH (09:00)
[2019-09-08] MEDS: METOPROLOL TARTRATE 25 MG TAB PO SCH ×2 (09:51→17:12)
[2019-09-08] MEDS ORDERED: BISACODYL 10 MG SUPP PR SCH (10:30)
[2019-09-08] MEDS ORDERED: CITRATE OF MAGNESIA 300ML BOTTLE PO SCH (10:30)
--- NOTE | 2019-09-08 10:38 | Progress Note ---
DATE: Pulmonary Critical Care Progress Note SUBJECTIVE: The patient remains on a PRVC mode of ventilation. He is currently on a PRVC of 32 with a tidal volume of 380, a PEEP of 14 and FiO2 of 75%. He remains on rocuronium as well as Versed and fentanyl. He is having some abdominal distention. He has not had a bowel movement. The patient did have his rocuronium stop temporarily yesterday, but became very tachypneic and had to be restarted. PHYSICAL EXAMINATION: VITAL SIGNS: The blood pressure is 115/53, saturation is 95%, and the pulse is 84. Ventilator settings are as above. HEENT: Shows no facial swelling or erythema. There is an oral endotracheal tube. There is a nasogastric tube in place. The patient has a PICC line as well as an arterial line. CARDIAC: Reveals a regular rate and rhythm with normal S1 and S2. LUNGS: Auscultation of lungs reveals crackles at the bases. There is no wheezing. ABDOMEN: Soft and nontender. There is some mild distention. EXTREMITIES: There is no leg edema or calf tenderness. There is no cyanosis or clubbing. SKIN: Shows no rashes. NEUROLOGICAL: Shows no focal abnormalities. LABORATORY DATA: White blood cell count is 6.4 and the hemoglobin is 7.6. The platelet count is 174. BUN to creatinine ratio is 13 to 0.52. Other electrolytes are within normal limits. The glucose is 135. ABG shows a pH of 7.39 with a CO2 of 56, an O2 of 87, and a bicarbonate of 34. RADIOGRAPHIC DATA: Shows bilateral infiltrates. IMPRESSION: 1. Acute respiratory failure. 2. Viral pneumonia and COVID-19 infection. 3. Hypertension. 4. Anemia. 5. Constipation. PLAN: 1. Continue to use PRVC mode of ventilation as tolerated. Repeat ABG later today. 2. The patient will receive magnesium citrate in a suppository in hopes of mobilizing his bowels and decreasing abdominal distention. 3. Abdominal x-ray. 4. Continue Lovenox. 5. Continue current antibiotics. 6. Continue fentanyl, Versed, and rocuronium for now. 7. Place the patient in prone position later this evening. 8. Case discussed with hourly shift nursing, day shift nursing, Respiratory, Ms. Haywood of Internal Medicine, Infectious Disease, and administration. Greater than 35 minutes in direct critical care time apart from any procedures performed. MD SAMINA Angel/ANGELA /[id number]
[2019-09-08] MEDS: ENOXAPARIN SOD INJ 60 MG/0.6 ML SYR SC SCH ×2 (10:51→20:00)
[2019-09-08 10:53] LABS: ABG HCO3 33 mmol/L (22-26); ABG PCO2 55 mmHg (35-45); ABG PH 7.39 (7.35-7.45); ABG PO2 55 mmHg (80-105)
--- NOTE | 2019-09-08 12:15 | Diagnostic Imaging Report ---
EXAMINATION: CHEST SINGLE (NOT PORTABLE) INDICATION: Pneumonia COMPARISON: Multiple prior chest radiograph, most recently of earlier the same day FINDINGS: LINES/TUBES: Support lines and tubes unchanged. LUNGS:The lung volumes are low. Unchanged bilateral diffuse airspace opacities. PLEURA:No pleural effusion or pneumothorax. MEDIASTINUM:The cardiomediastinal silhouette appears unchanged in size and shape. BONES/SOFT TISSUES:No acute osseous injury. ABDOMEN:No free air under the diaphragm. IMPRESSION: Unchanged bilateral diffuse airspace opacities. Low lung volumes. Signed by: Farrah Pierson MD on 09/08/2019 12:11 PM
--- NOTE | 2019-09-08 13:58 | Progress Note ---
DATE: 09/08/2019 Cardiology Progress Note SUBJECTIVE: Issues with hypoxemia today with abdominal distention observed. NG tube to wall suction initiated. OBJECTIVE: VITAL SIGNS: Temperature 98 degrees, heart rate 95 to 112, sinus tachycardia on telemetry, blood pressure 163/109, respiratory rate 32, and O2 saturation 86% on FiO2 100%, PEEP 14. GENERAL: Intubated and sedated. CHEST: Rales and decreased breath sounds ABD: Distended, decreased breath sounds Ext: Euthermic, trace edema CARDIOVASCULAR MEDICATIONS: Reviewed STUDIES: Reviewed. Creatinine 0.5, glucose 92. White blood cells 6, hemoglobin 7.6, platelets 174. INR 0.9. ASSESSMENT AND PLAN: A 44-year-old man, presents with COVID-19 infection and community-acquired pneumonia, acute respiratory failure, history of hypertension, anemia, abdominal distention, undergoing evaluation. RECOMMENDATIONS: 1. Continue current cardiovascular medications. 2. Pulmonary optimizing vent parameters. 3. Consider Surgical consultation depending on abdominal distention workup. Overall, remains in guarded prognosis. MD OPAL Del Valle/ANGELA /[id number] MTDD
--- NOTE | 2019-09-08 15:13 | NUR ---
Nutrition Intervention Note RD Recommendation(s) for Physician: - Recommend TF change to Vital HP with goal rate of 45 ml/hr (to provide 1080 kcal and 95 gm protein). Remaining kcal provided by Propofol. - Water flushes/fluid management per MD. - Propofol providing an additional 623 lipid kcal/day. Plan of Care: RD following, TF rec's, monitor adequacy and tolerance Nutrition reason for involvement: follow up RD Assessment 09/07: Follow up. Chart reviewed. Pt remains intubated and sedated. Pt is receiving 23.6 mL/hr of propofol per documentation which provides 623 lipid kcal. TF was at 20 mL/hr last night per chart. Per MD note, pts abdomen is distended and has not had a BM. Will continue to monitor. 09/04: Follow up. Pt remains intubated and sedated. Pt is receiving 9 mL/hr of propofol per documentation, which provides 238 lipid kcal. TF was at 20 mL/hr per chart yesterday. No additional administration rate is available. Will continue to monitor. 09/02: Follow up. Pt remains intubated, paralyzed, and sedated on Propofol and Versed. Pt requiring proning. TF rate at 10 ml/hr per TF documentation yesterday- inadequate EN currently, no additional EN administration available per chart. Recommend continuing EN while pt is proned by placing them in reverse Trendelenburg position. If unable to advance TF to goal rate, recommend considering PN. Chart reviewed. Will continue to monitor. Initial encounter with patient. Pt is sedated and orally intubated. Pt was not able to provide a nutrition Hx at the time of visit. Unable to observe oral cavity or perform a nutrition focused physical exam. Jevity 1.2 infusing at 20ml hr with a goal of 50ml/hr. Propofol provides 1.1kcal/ml EN provides 576 kcals, 26.64g of protein, and 387.36ml of free H2O Principal Problems/Diagnoses: CoVID 19 pneumonia PMH:No significant medical Hx, overweight/obesity GI: LBM 7/4, firm, round abdomen Skin: Intact Labs: 09/07: Na 144, K 3.8, BUN 13, Cr 0.52, Glu 92, Ca 7.8 09/04: Na 141, K 4.0, BUN 21, Cr 0.63, Glu 122 09/02: Na 139, K 4.2, BUN 19, Cr 0.61, Gluc 101 Meds: propofol, metoprolol, colace, antibiotics, vitamin D, vitamin C, rocuronium, fentanyl, zinc sulfate, dulcolax, milk of magnesia Ht: 67 in. Wt: 219 lbs (08/28) 220 lbs (09/04) 215.31lb (09/02), 200.44lbs (08/29) BMI: 31.4kg/m2 (weight used- 200 lbs) IBW: 148 lbs Malnutrition Evaluation (08/30/2019) Unable to assess due to current isolation precautions. Will re-evaluate at follow-up as appropriate. Nutrition Prescription (Diet Order): TF Jevity 1.2 at 50 ml/hr (infusing at 20 mL/hr per chart) Estimated Nutritional Needs: 7096-3050 calories/day (22-25 kcal/kg IBW) 101-135 g protein/day (1.5-2 g pro/kg IBW) Diet Adequacy: Not meeting calorie needs, Not meeting protein needs Diet Education Needs Assessment: Diet education not indicated. Nutrition Care Level: high Nutrition Diagnosis: Inadequate energy and protein intake related to intubation as evidenced by requiring EN on vent. Goal: Patient will meet 75-100% of estimated needs by follow up Progress: goal not met Interventions: EN- Composition, Rate, Route Monitoring/Evaluation: Total energy intake, Total protein intake, Formula/Solution, Prescription medication, Weight change Signed: Nina Reese RD, CHRISTIANE
[2019-09-08] MEDS ORDERED: FUROSEMIDE INJ 10 MG/ML 2 ML VIAL IV ONE ×2 (15:15→15:30)
[2019-09-08] MEDS: ALBUMIN 25% 25GM 100ML 100 ML IV SCH (17:09)
[2019-09-08] MEDS ORDERED: ALBUMIN 25% 25GM 100ML 0.25 GM/ML BTL IV SCH (18:00)
[2019-09-08] MEDS: VANCOMYCIN 300 ML IV SCH (18:31)
[2019-09-08] MEDS: HYDRALAZINE HCL 20 MG/ML VIAL IV PRN (18:38)
[2019-09-08] MEDS: LABETALOL HCL 5 MG/ML 20ML VIAL IV PRN (18:56)
--- NOTE | 2019-09-08 22:36 | Progress Note ---
DATE: 09/08/2019 SUBJECTIVE: The patient is intubated, sedated, cannot give any history. OBJECTIVE: VITAL SIGNS: T-max 99.1, pulse 102, respiratory rate 33, and blood pressure 105/77. GENERAL: Sedated, intubated. HEENT: Intubated. LUNGS: Clear. HEART: Tachycardic. Normal S1, S2. GI: Abdomen distended. Minimal bowel sounds. SKIN: No rash. NEUROLOGIC: Sedated. PSYCHIATRIC: Sedated. LABORATORY DATA: White count 6.5, hemoglobin 7.6, platelet count 174, BUN 13 and creatinine 0.5. Chest x-ray, no significant interval changes. ABG; pH 7.4, pCO2 of 55, PO2 of 55 on 72% FiO2. ASSESSMENT AND PLAN: 1. Acute respiratory failure due to COVID pneumonia. We will continue meropenem and vancomycin per Infectious Disease specialist. Continue vent per mail sorter and delivery. At this time, is probably in acute respiratory distress syndrome. 2. Abdominal distention with minimal bowel movements. The patient has received a laxative and we just have some liquid stool. 3. Chronic anemia. Currently hemoglobin is 7.6. The patient is on full dose of Lovenox anticoagulation. We will continue to monitor closely. 4. Gastrointestinal. DVT prophylaxis. Continue Lovenox 60 mg twice a day. MD ALIN Allred/ANGELA /[id number]
[2019-09-08] MEDS: BUDESONIDE 0.5MG/2 ML NEB INH SCH (22:40)
[2019-09-08 22:46] LABS: ABG HCO3 33 mmol/L (22-26); ABG PCO2 64 mmHg (35-45); ABG PH 7.32 (7.35-7.45); ABG PO2 62 mmHg (80-105)
[2019-09-09] VITALS (33 sets, daily range): BP systolic 97–202; BP diastolic 52–118
[2019-09-09] MEDS: ALBUMIN 25% 25GM 100ML 100 ML IV SCH ×2 (00:28→05:31)
[2019-09-09] MEDS: MEROPENEM 1GM 100 ML IV SCH ×3 (00:28→16:22)
[2019-09-09] MEDS: MIDAZOLAM HCL 5MG/ML 10ML VIAL 100 ML IV PRN ×3 (01:32→13:11)
[2019-09-09] MEDS: FENTANYL 2000MCG/NS 250 250 ML IV PRN ×3 (01:33→13:12)
[2019-09-09] MEDS: PROPOFOL IV EMULSION 10MG/ML 100 ML IV PRN ×4 (04:00→22:10)
[2019-09-09] MEDS: ROCURONIUM BROMIDE 250 MG in SODIUM CHLORIDE 0.9% 250ML 225 ML IV PRN ×2 (04:22→09:00)
[2019-09-09] MEDS: VANCOMYCIN 300 ML IV SCH ×2 (04:44→17:20)
[2019-09-09 05:38] LABS: BASOPHILS % 0.1 % (0.0-1.0); EOSINOPHILS # (AUTO) 0.2 (0.0-0.4); EOSINOPHILS % 2.3 % (0.0-6.0); HEMATOCRIT 23.3 % (38.2-49.6); HEMOGLOBIN 7.1 g/dL (14.0-18.0); LYMPHOCYTES # (AUTO) 0.5 (1.0-3.2); LYMPHOCYTES % 7.1 % (18.0-39.1); MEAN CORPUSCULAR HEMOGLOBIN 29.1 pg (28-32); MEAN CORPUSCULAR HGB CONC 30.5 g/dL (31-35); MEAN CORPUSCULAR VOLUME 95.5 fL (81-99); MONOCYTES # (AUTO) 0.3 (0.2-0.8); MONOCYTES % 4.4 % (4.4-11.3); NEUTROPHILS # (AUTO) 6.3 (2.1-6.9); NEUTROPHILS % 85.6 % (38.7-80.0); PLATELET COUNT 163 x10e3/uL (140-360); RED BLOOD COUNT 2.44 x10e6/uL (4.3-5.7); RED CELL DISTRIBUTION WIDTH 12.7 % (11.7-14.4)
[2019-09-09 05:57] LABS: ALANINE AMINOTRANSFERASE 68 IU/L (0-55); ALBUMIN/GLOBULIN RATIO 1.3 (0.8-2.0); ALKALINE PHOSPHATASE 85 IU/L (40-150); ANION GAP 11.5 mmol/L (8-16); BLOOD UREA NITROGEN 13 mg/dL (7-26); BUN/CREATININE RATIO 23 (6-25); CARBON DIOXIDE 32 mmol/L (22-29); CHLORIDE 105 mmol/L (98-107); CREATININE, SERUM 0.56 mg/dL (0.72-1.25); EST GLOMERULAR FILTRATION RATE > 60 ML/MIN (60-); GLUCOSE 90 mg/dL (74-118); POTASSIUM 3.5 mmol/L (3.5-5.1); SODIUM 145 mmol/L (136-145)
[2019-09-09] MEDS ORDERED: BUDESONIDE 0.5MG/2 ML NEB ONE (06:45)
[2019-09-09] MEDS ORDERED: ALBUTEROL/IPRATROPIUM 3 ML NEB ONE ×2 (06:45→13:45)
[2019-09-09] MEDS: ALBUTEROL/IPRATROPIUM 3 ML NEB NEB SCH ×3 (08:00→20:30)
--- NOTE | 2019-09-09 08:31 | Diagnostic Imaging Report ---
Examination: Single AP view of the chest. COMPARISON: Portable chest 08/22/2019 and 09/08/2019 INDICATION: Respiratory failure IMPRESSION: 1. Lines and Tubes: Supporting lines and tubes are unchanged. 2. No interval change in diffuse bilateral interstitial alveolar opacities consistent with pneumonia. Right-sided pleural effusion. 3. Prominence of the cardiac silhouette, which may be partly due to portable AP projection Central pulmonary venous congestion. 4. No acute bony abnormalities. Signed by: Dr. Aniket Loredo M.D. on 09/09/2019 8:28 AM
[2019-09-09] MEDS: ENOXAPARIN SOD INJ 60 MG/0.6 ML SYR SC SCH ×2 (08:44→19:52)
[2019-09-09] MEDS: ZINC SULFATE 220 MG CAP PO SCH (08:44)
[2019-09-09] MEDS: CHOLECALCIFEROL 400 UNIT TAB PO SCH ×2 (08:44→19:52)
[2019-09-09] MEDS: METOPROLOL TARTRATE 25 MG TAB PO SCH ×2 (08:44→19:51)
[2019-09-09] MEDS: ASCORBIC ACID 500 MG TAB PO SCH ×2 (08:44→19:52)
[2019-09-09] MEDS: BUDESONIDE 0.5MG/2 ML NEB INH SCH ×2 (09:00→20:30)
[2019-09-09] MEDS ORDERED: FUROSEMIDE INJ 10 MG/ML 4 ML VIAL IV ONE (09:00)
[2019-09-09] MEDS: DOCUSATE SODIUM LIQD 100 MG/10 ML UDC NG SCH ×2 (09:00→16:22)
[2019-09-09] MEDS ORDERED: FENTANYL 2,000 MCG/250 ML BAG ONE (10:00)
--- NOTE | 2019-09-09 10:07 | Progress Note ---
DATE: Pulmonary Critical Care SUBJECTIVE: The patient is continuing to require PRVC at 100% with PEEP of 15 and tidal volume of 360. His respiratory rate is 32. He remains on fentanyl, Versed and rocuronium. He had some desaturations early this morning, but is now improving. OBJECTIVE: VITAL SIGNS: The patient is afebrile. The blood pressure is 160/90 and the heart rate is 90 to 100. The patient is synchronized with the ventilator. He is on above-mentioned ventilator settings. He has an oral endotracheal tube. He has a nasogastric tube in place. The nasogastric tube is to suction. He has a PICC line. The site looks clean. There is no drainage. CARDIAC: Reveals a regular rate and rhythm with normal S1 and S2. LUNGS: Auscultation of lungs reveals rhonchus breath sounds bilaterally. There is no wheezing. ABDOMEN: Soft, nontender. There is no rebound or guarding. EXTREMITIES: Shows no leg edema or calf tenderness. There is no cyanosis or clubbing. NEUROLOGICAL: Shows the patient to be sedated. RADIOGRAPHIC DATA: Chest x-ray shows bilateral pulmonary infiltrates. LABORATORY DATA: Electrolytes, BUN and creatinine are within normal limits. White blood cell count is 8.3 and hemoglobin is 7.2. ASSESSMENT: 1. Acute respiratory failure. 2. Viral pneumonia and coronavirus disease-19 infection. 3. Anemia secondary to chronic blood loss. 4. Hypertension. PLAN: 1. Continue current ventilator settings and repeat ABG. 2. Lasix 40 mg IV. 3. Continue current antibiotics. 4. Evaluation for tracheostomy. 5. Lovenox. 6. Restart enteral feedings as soon as feasible. 7. Attempted to call Rocio Miles yesterday, but did not receive any answer. 8. Case discussed with nightshift nursing, dayshift nursing, Respiratory, Infectious Disease, and administration. 9. Greater than 35 minutes in direct critical care time. Maximilian Lowry MD [facility]/REYESL /[id number]
[2019-09-09] MEDS ORDERED: MIDAZOLAM HCL 5MG/ML 10ML VIAL 100 ML BAG IV ONE ×2 (10:20→10:28)
[2019-09-09 10:51] LABS: ABG HCO3 33 mmol/L (22-26); ABG PCO2 64 mmHg (35-45); ABG PH 7.32 (7.35-7.45); ABG PO2 62 mmHg (80-105)
[2019-09-09] MEDS: LABETALOL HCL 5 MG/ML 20ML VIAL IV PRN ×2 (11:59→16:34)
--- NOTE | 2019-09-09 19:16 | Progress Note ---
DATE: 09/09/2019 Cardiology Progress Note SUBJECTIVE: Mr. Miles remains intubated and sedated. OBJECTIVE: VITAL SIGNS: Temperature 99.1, heart rate 84, blood pressure 159/72, respiratory rate 34, O2 saturation 89% on PEEP of 14, FiO2 100%. GENERAL: Intubated, sedated. NECK: Supple. CHEST: With rales and decreased breath sounds. CARDIOVASCULAR: Regular rate and rhythm. Normal S1 and S2. ABDOMEN: Distended. Bowel sounds diminished. EXTREMITIES: Trace edema, euthermic. MEDICATIONS: Cardiovascular medications reviewed. Lisinopril, labetalol, metoprolol, Lovenox. LABORATORY DATA: Studies reviewed. Creatinine 0.5, hemoglobin 7.1, white blood cells 7, platelets 163. ASSESSMENT AND PLAN: A 44-year-old man presents with acute respiratory failure and in the setting of coronavirus disease-19 infection, community-acquired pneumonia, history of hypertension, morbid obesity. Recommend continue current cardiovascular medications and monitor H and H. Remains with high pressures. Overall, guarded prognosis. Ileus being treated with NG tube in place. John Romero MD [facility]/MODL /[id number]
--- NOTE | 2019-09-09 21:11 | Progress Note ---
DATE: SUBJECTIVE: Mr. Miles remains in the intensive care unit. This is day #16. He is on PRVC 100% with PEEP of 15, tidal volume 360, respiratory rate is 32, on fentanyl, Versed, and rocuronium. He desaturated earlier today, but he is better now. PHYSICAL EXAMINATION: VITAL SIGNS: Afebrile. HEENT: He is not icteric. NECK: Supple. CHEST: Few crackles. ABDOMEN: Soft. IMPRESSION: 1. COVID-19, respiratory failure, viral pneumonia on day #16, congestive heart failure. 2. Continue meropenem and vancomycin, we will treat him for 5 days. We will continue supportive care. Prognosis remains poor. We will follow. Andreea Maguire MD [facility]/MODL /[id number]
[2019-09-09 21:14] LABS: ABG HCO3 36 mmol/L (22-26); ABG PCO2 62 mmHg (35-45); ABG PH 7.37 (7.35-7.45); ABG PO2 64 mmHg (80-105)
[2019-09-10] VITALS (49 sets, daily range): BP systolic 87–210; BP diastolic 54–128
[2019-09-10] MEDS: FENTANYL 2000MCG/NS 250 250 ML IV PRN ×3 (00:15→21:50)
[2019-09-10] MEDS: MEROPENEM 1GM 100 ML IV SCH ×2 (00:49→08:45)
[2019-09-10] MEDS: MIDAZOLAM HCL 5MG/ML 10ML VIAL 100 ML IV PRN ×4 (01:17→21:11)
--- NOTE | 2019-09-10 01:17 | Progress Note ---
DATE: 09/09/2019 SUBJECTIVE: The patient is intubated, sedated, therefore cannot give any history. OBJECTIVE: VITAL SIGNS: Temperature 99.0, pulse 97, respiratory rate 33, blood pressure 104/52. GENERAL: Intubated, sedated. HEENT: Intubated. LUNGS: Clear. HEART: Regular rate and rhythm. Normal S1, S2. GI: Abdomen is soft, distended. SKIN: No rash. NEUROLOGIC: Sedated. PSYCHIATRIC: Sedated, cannot assess. LABORATORY DATA: Laboratory harrison, the white count 7, hemoglobin 7, platelet count 163. ABG shows pH of 7.37, pCO2 62, pO2 64 on 100% FiO2. Creatinine is 0.56. Chest x-ray did not show any changes. ASSESSMENT AND PLAN: 1. Acute respiratory failure due to coronavirus disease-2019 pneumonia. We will continue meropenem and IV vancomycin per Infectious Disease specialist. Continue vent management per associate director finance. The patient is likely in acute respiratory distress syndrome. 2. Chronic blood loss anemia. Currently, hemoglobin is 7.1. We will continue to monitor closely. Consider blood transfusion if less than 7. 3. Abdominal distention with minimal bowel movements. Still no significant bowel movements despite laxative. 4. Gastrointestinal and deep vein thrombosis prophylaxes. The patient is on Lovenox 60 mg twice a day due to the fact that he has COVID pneumonia. MD ALIN Allred/ANGELA /[id number]
[2019-09-10 04:58] LABS: BASOPHILS % 0.1 % (0.0-1.0); EOSINOPHILS # (AUTO) 0.2 (0.0-0.4); EOSINOPHILS % 2.5 % (0.0-6.0); HEMATOCRIT 26.4 % (38.2-49.6); HEMOGLOBIN 8.1 g/dL (14.0-18.0); LYMPHOCYTES # (AUTO) 0.5 (1.0-3.2); LYMPHOCYTES % 5.7 % (18.0-39.1); MEAN CORPUSCULAR HEMOGLOBIN 29.9 pg (28-32); MEAN CORPUSCULAR HGB CONC 30.7 g/dL (31-35); MEAN CORPUSCULAR VOLUME 97.4 fL (81-99); MONOCYTES # (AUTO) 0.4 (0.2-0.8); MONOCYTES % 4.9 % (4.4-11.3); NEUTROPHILS # (AUTO) 7.5 (2.1-6.9); NEUTROPHILS % 86.1 % (38.7-80.0); PLATELET COUNT 197 x10e3/uL (140-360); RED BLOOD COUNT 2.71 x10e6/uL (4.3-5.7); RED CELL DISTRIBUTION WIDTH 12.9 % (11.7-14.4)
[2019-09-10] MEDS: VANCOMYCIN 300 ML IV SCH (05:14)
[2019-09-10 05:22] LABS: ALANINE AMINOTRANSFERASE 48 IU/L (0-55); ALBUMIN 2.8 g/dL (3.5-5.0); ALKALINE PHOSPHATASE 88 IU/L (40-150); ANION GAP 9.7 mmol/L (8-16); BLOOD UREA NITROGEN 15 mg/dL (7-26); BUN/CREATININE RATIO 29 (6-25); CARBON DIOXIDE 35 mmol/L (22-29); CHLORIDE 104 mmol/L (98-107); CREATININE, SERUM 0.52 mg/dL (0.72-1.25); EST GLOMERULAR FILTRATION RATE > 60 ML/MIN (60-); GLUCOSE 89 mg/dL (74-118); POTASSIUM 3.7 mmol/L (3.5-5.1); SODIUM 145 mmol/L (136-145)
[2019-09-10] MEDS: ALBUTEROL/IPRATROPIUM 3 ML NEB NEB SCH ×3 (07:30→23:00)
[2019-09-10] MEDS: ROCURONIUM BROMIDE 250 MG in SODIUM CHLORIDE 0.9% 250ML 225 ML IV PRN ×3 (07:59→21:30)
[2019-09-10] MEDS: PROPOFOL IV EMULSION 10MG/ML 100 ML IV PRN ×3 (07:59→21:47)
[2019-09-10] MEDS: LABETALOL HCL 5 MG/ML 20ML VIAL IV PRN ×2 (08:55→12:40)
[2019-09-10] MEDS: DOCUSATE SODIUM LIQD 100 MG/10 ML UDC NG SCH ×2 (09:00→17:00)
[2019-09-10] MEDS: METOPROLOL TARTRATE 25 MG TAB PO SCH ×2 (09:00→20:40)
[2019-09-10] MEDS: CHOLECALCIFEROL 400 UNIT TAB PO SCH ×2 (09:01→20:40)
[2019-09-10] MEDS: ASCORBIC ACID 500 MG TAB PO SCH ×2 (09:01→20:40)
[2019-09-10] MEDS: ZINC SULFATE 220 MG CAP PO SCH (09:02)
[2019-09-10 10:13] LABS: ABG PH 7.33 (7.35-7.45)
[2019-09-10 10:14] LABS: ABG HCO3 34 mmol/L (22-26); ABG PCO2 63 mmHg (35-45)
[2019-09-10 10:15] LABS: ABG PO2 53 mmHg (80-105)
--- NOTE | 2019-09-10 11:08 | Diagnostic Imaging Report ---
EXAMINATION: CHEST SINGLE (PORTABLE) INDICATION: Respiratory failure COMPARISON: Chest radiograph 09/08/2019 FINDINGS: LINES/TUBES:Endotracheal tube terminates 1.1 cm above the fred. NG tube and left PICC line unchanged. LUNGS:The lungs are moderately inflated. Persistent bilateral airspace opacities appear slightly improved from 09/10/2019. PLEURA:No pleural effusion or pneumothorax. MEDIASTINUM:The cardiomediastinal silhouette appears unchanged in size and shape. BONES/SOFT TISSUES:No acute osseous injury. ABDOMEN:No free air under the diaphragm. IMPRESSION: Endotracheal tube terminates 1.1 cm above the fred. Recommend withdrawal of tube by approximately 3 cm. Slight interval improvement in persistent bilateral airspace opacities consistent with known pneumonia. Signed by: Farrah Pierson MD on 09/10/2019 11:05 AM
[2019-09-10] MEDS ORDERED: FUROSEMIDE INJ 10 MG/ML 4 ML VIAL IV ONE (11:30)
[2019-09-10] MEDS ORDERED: PROPOFOL IV EMULSION 10 MG/ML 50 ML VIAL IV ONE (12:00)
[2019-09-10] MEDS: ENOXAPARIN SOD INJ 60 MG/0.6 ML SYR SC SCH ×2 (12:53→20:40)
[2019-09-10] MEDS: EYE LUBRICANT OPTH OINT 3.5GM TUBE OP SCH ×3 (12:53→23:38)
--- NOTE | 2019-09-10 16:00 | Progress Note ---
DATE: Pulmonary Critical Care Progress Note SUBJECTIVE: The patient remains on PRVC mode of ventilation at a rate of 32 with a tidal volume of 380 and PEEP of 20. His FiO2 is set at 100%. He is now in the prone position. He does not have fevers. His feedings have been on hold and his NG tube is to suction. PHYSICAL EXAMINATION: VITAL SIGNS: The patient is afebrile. The vital signs are stable. The blood pressure is 117/62 and heart rate is 110. His saturation is in the high 80s. HEENT: Shows no facial swelling or erythema. CARDIAC: Reveals regular rate and rhythm with normal S1 and S2. LUNGS: Auscultation of lungs reveals crackles at the bases. There is no wheezing. ABDOMEN: Soft and nontender. There is no rebound or guarding. EXTREMITIES: Shows no leg edema or calf tenderness. There is no cyanosis or clubbing. LABORATORY DATA: Hemoglobin is 8.1, and the white blood cell count is 8.7. The platelet count is 197. BUN to creatinine ratio is normal. Other electrolytes are within normal limits and the albumin is 2.8. IMPRESSION: 1. Acute respiratory failure. 2. Viral pneumonia and COVID-19 infection. 3. Anemia secondary to chronic blood loss. 4. Ileus. 5. Obesity. PLAN: 1. Continue ventilation in the prone position. 2. Repeat ABG. 3. Continue to monitor PEEP and airway pressures. 4. Continue current antibiotics. 5. Begin TPN because of the ileus. 6. Monitor BUN, creatinine, and electrolytes. 7. Complete current antibiotics. 8. Prognosis at this point is poor and condition is critical. Greater than 35 minutes in direct critical care time. Maximilian Lowry MD [facility]/MODL /[id number]
[2019-09-10 20:57] LABS: ABG HCO3 39 mmol/L (22-26); ABG PCO2 79 mmHg (35-45); ABG PH 7.31 (7.35-7.45); ABG PO2 108 mmHg (80-105)
[2019-09-11] VITALS (48 sets, daily range): BP systolic 84–191; BP diastolic 52–116
--- NOTE | 2019-09-11 00:22 | Progress Note ---
DATE: 09/10/2019 SUBJECTIVE: The patient is currently intubated and sedated in prone position. OBJECTIVE: VITAL SIGNS: Temperature 98.8, pulse 133, respiratory rate 23, and blood pressure 106/104. GENERAL: The patient is intubated and sedated. HEENT: Endotracheal tube in place. SKIN: No rash. LUNGS: Decreased. HEART: Tachycardiac. Normal S1 and S2. GI: Soft, but distended. NEUROLOGIC: Sedated. PSYCHIATRIC: Sedated. LABORATORY DATA: White count 8.7, hemoglobin 8.1, and platelet count 197. ABG shows pH of 7.3, pCO2 of 79, pO2 of 108, and creatinine 0.5. Chest x-ray slight interval improvement. ASSESSMENT AND PLAN: 1. Acute respiratory failure due to COVID-19 pneumonia. We will continue current course per Infectious Disease specialist and logistics engineering manager. 2. Chronic anemia. Hemoglobin is stable. 3. Abdominal distention. We will continue to monitor. 4. Possibly GI and DVT prophylaxis. Lovenox 60 mg twice a day. MD ALIN Allred/ANGELA /[id number]
[2019-09-11] MEDS: MIDAZOLAM HCL 5MG/ML 10ML VIAL 100 ML IV PRN ×3 (03:20→17:09)
[2019-09-11 05:56] LABS: BASOPHILS % 0.2 % (0.0-1.0); EOSINOPHILS # (AUTO) 0.1 (0.0-0.4); EOSINOPHILS % 0.5 % (0.0-6.0); LYMPHOCYTES # (AUTO) 0.3 (1.0-3.2); LYMPHOCYTES % 3.6 % (18.0-39.1); MEAN CORPUSCULAR HEMOGLOBIN 29.4 pg (28-32); MEAN CORPUSCULAR HGB CONC 30.8 g/dL (31-35); MEAN CORPUSCULAR VOLUME 95.6 fL (81-99); MONOCYTES # (AUTO) 0.5 (0.2-0.8); MONOCYTES % 5.4 % (4.4-11.3); NEUTROPHILS # (AUTO) 8.3 (2.1-6.9); NEUTROPHILS % 89.2 % (38.7-80.0); PLATELET COUNT 226 x10e3/uL (140-360); RED BLOOD COUNT 2.72 x10e6/uL (4.3-5.7); RED CELL DISTRIBUTION WIDTH 13.2 % (11.7-14.4)
[2019-09-11] MEDS: EYE LUBRICANT OPTH OINT 3.5GM TUBE OP SCH ×3 (06:14→17:08)
[2019-09-11] MEDS: FENTANYL 2000MCG/NS 250 250 ML IV PRN ×2 (06:30→08:35)
[2019-09-11 06:43] LABS: ALANINE AMINOTRANSFERASE 36 IU/L (0-55); ALBUMIN 2.5 g/dL (3.5-5.0); ALBUMIN/GLOBULIN RATIO 0.8 (0.8-2.0); ALKALINE PHOSPHATASE 81 IU/L (40-150); ANION GAP 10.7 mmol/L (8-16); BLOOD UREA NITROGEN 20 mg/dL (7-26); BUN/CREATININE RATIO 41 (6-25); CALCIUM 7.9 mg/dL (8.4-10.2); CARBON DIOXIDE 38 mmol/L (22-29); CHLORIDE 103 mmol/L (98-107); CREATININE, SERUM 0.49 mg/dL (0.72-1.25); EST GLOMERULAR FILTRATION RATE > 60 ML/MIN (60-); GLUCOSE 114 mg/dL (74-118); POTASSIUM 3.7 mmol/L (3.5-5.1); SODIUM 148 mmol/L (136-145)
[2019-09-11] MEDS: ALBUTEROL/IPRATROPIUM 3 ML NEB NEB SCH ×2 (07:00→19:14)
[2019-09-11] MEDS: PROPOFOL IV EMULSION 10MG/ML 100 ML IV PRN ×3 (08:36→20:22)
[2019-09-11] MEDS: ASCORBIC ACID 500 MG TAB PO SCH ×2 (08:49→20:58)
[2019-09-11] MEDS: ENOXAPARIN SOD INJ 60 MG/0.6 ML SYR SC SCH ×2 (08:49→20:59)
[2019-09-11] MEDS: DOCUSATE SODIUM LIQD 100 MG/10 ML UDC NG SCH ×2 (08:49→17:00)
[2019-09-11] MEDS: ZINC SULFATE 220 MG CAP PO SCH (08:49)
[2019-09-11] MEDS: CHOLECALCIFEROL 400 UNIT TAB PO SCH ×2 (08:49→20:59)
--- NOTE | 2019-09-11 10:48 | Progress Note ---
DATE: Pulmonary Critical Care Progress Note SUBJECTIVE: The patient remains in the prone position. His oxygenation improved after being in the prone position overnight. He does not have fevers. PHYSICAL EXAMINATION: VITAL SIGNS: Blood pressure is 169/90 and the saturation is 100%. His pulse is 109. HEENT: No facial swelling or erythema. CARDIAC: Regular rate and rhythm with normal S1, S2. LUNGS: Auscultation of lungs reveals rhonchorous breath sounds bilaterally. There is no wheezing. ABDOMEN: Soft, nontender. There is no rebound or guarding. EXTREMITIES: Examination of the extremities shows no leg edema or calf tenderness. There is no cyanosis or clubbing. SKIN: No rashes. NEUROLOGICAL: No focal abnormalities. The patient is currently sedated and paralyzed. LABORATORY DATA: Sodium is 148. BUN to creatinine ratio is 20 to 0.49. Carbon dioxide is 38 and albumin is 2.5. Hemoglobin is 8 and the white blood cell count is 9.2. The platelet count is 226. RADIOGRAPHIC DATA: Chest x-ray shows bilateral infiltrates. IMPRESSION: 1. Acute respiratory failure. 2. Viral pneumonia, coronavirus disease-19 infection. 3. Anemia secondary to chronic blood loss. 4. Ileus. 5. Obesity. PLAN: 1. We will place the patient back into the supine position. 2. Repeat ABG and monitor airway pressures. Adjust ventilator as needed. 3. Complete antibiotics. 4. Begin TPN. 5. Re-attempt oral feedings through NG tube if possible. 6. Continue Lovenox. Case discussed with mini shifter nursing, dayshift nursing, Respiratory, Internal Medicine and Infectious Disease. Greater than 35 minutes in direct critical care time. Maximilian Lowry MD [facility]/REYESL /[id number]
[2019-09-11] MEDS: PANTOPRAZOLE 40 MG 10ML VIAL IV SCH (10:55)
[2019-09-11] MEDS: METOPROLOL TARTRATE 25 MG TAB PO SCH ×2 (10:56→20:58)
[2019-09-11] MEDS: LABETALOL HCL 5 MG/ML 20ML VIAL IV PRN (11:05)
[2019-09-11] MEDS ORDERED: MIDAZOLAM HCL 5MG/ML 10ML VIAL 100 ML BAG IV ONE (11:39)
[2019-09-11] MEDS ORDERED: FENTANYL 2,000 MCG/250 ML BAG ONE (11:46)
[2019-09-11] MEDS ORDERED: PROPOFOL IV EMULSION 10 MG/ML 50 ML VIAL IV ONE (11:54)
--- NOTE | 2019-09-11 12:05 | Diagnostic Imaging Report ---
EXAM: CHEST SINGLE (PORTABLE) DATE: 09/11/2019 11:15 AM INDICATION: Bilateral pneumonia, follow-up COMPARISON: 09/10/2019 FINDINGS: Endotracheal tube tip now terminates approximately 4.3 cm above the fred. Enteric tube noted coursing below the diaphragm. Left-sided PICC line identified in stable position. Again identified are diffusely increased interstitial and airspace opacities throughout the lungs bilaterally. There is no evidence for pneumothorax or significant volume pleural effusion. The cardiac mediastinal silhouette is stable in appearance. No acute osseous abnormality is identified. IMPRESSION: Endotracheal tube now terminates approximately 4.3 cm above the fred. Stable appearing bilateral interstitial and airspace opacities compatible with history of viral pneumonia. Signed by: Dr. Jerad Child MD on 09/11/2019 12:02 PM
--- NOTE | 2019-09-11 12:13 | Progress Note ---
DATE: SUBJECTIVE: The patient is seen and evaluated, discussed with the nurse. The patient remains in COVID ICU with vent support of 90%, PRVC with a PEEP of 80, respirations 37, and tidal volume of 350, currently prone position with a saturation of 100% of oxygen. The patient has GI bleed with frequent suctioning. Also, remains on propofol, fentanyl, rocuronium, and Versed. REVIEW OF SYSTEMS: Unable to obtain secondary to the patient's condition. LABORATORY DATA: White count of 9.27, hemoglobin 8, and platelet 226. Sodium 148, potassium 3.7, and creatinine 0.49. MEDICATIONS: Reviewed, on vitamin D, vitamin C, Lovenox 60 mg b.i.d., zinc sulfate, propofol, fentanyl, and rocuronium. MICROBIOLOGY: No new microbiology studies available. RADIOLOGY: No new radiology studies available. PHYSICAL EXAMINATION: VITAL SIGNS: Temperature 98.1, pulse 109, respirations 33, blood pressure 169/92, and remains afebrile. GENERAL: Vent support. Prone position. CV: S1-S2. CHEST: Equal expansion. Decreased breath sounds. HEENT: Moist. EXTREMITIES: With edema. ASSESSMENT AND PLAN: 1. Coronavirus disease-19 pneumonia. 2. Concern superimposed bacterial pneumonia. 3. Respiratory failure. 4. Anemia. 5. Ileus. 6. Obesity with a BMI of 34.1. The patient is status post 5 days of vancomycin IV and meropenem. Also, status post Zithromax and Rocephin. The patient to be receiving TPN soon. Continue with vent support. Please refer to chart for more information. Dictated by Chirag Moreno PA-C (Al) Andreea Maguire MD /MODL /[id number]
[2019-09-11] MEDS ORDERED: ALBUTEROL/IPRATROPIUM 3 ML NEB NEB PRN (19:15)
[2019-09-11 19:36] LABS: ABG PCO2 64 mmHg (35-45); ABG PH 7.43 (7.35-7.45); ABG PO2 240 mmHg (80-105)
[2019-09-11 19:37] LABS: ABG HCO3 42 mmol/L (22-26)
[2019-09-11] MEDS ORDERED: CENTRAL TPN FORMULA 1 BAG IV SCH (20:00)
[2019-09-11] MEDS: ROCURONIUM BROMIDE 250 MG in SODIUM CHLORIDE 0.9% 250ML 225 ML IV PRN (20:23)
[2019-09-11 20:39] LABS: ABG HCO3 42 mmol/L (22-26); ABG PCO2 78 mmHg (35-45); ABG PH 7.33 (7.35-7.45); ABG PO2 70 mmHg (80-105)
[2019-09-12] VITALS (28 sets, daily range): BP systolic 100–160; BP diastolic 49–81
--- NOTE | 2019-09-12 00:57 | Progress Note ---
DATE: 09/11/2019 Cardiology Progress Note SUBJECTIVE: Remains intubated and sedated. OBJECTIVE: VITAL SIGNS: Temperature 98.1, heart rate 119, sinus tachycardia on telemetry, blood pressure 145/85, respiratory rate 34, sat 92% BMI 34. GENERAL: Intubated, sedated. Mucosa dry. CHEST: With rales and decreased breath sounds. CARDIOVASCULAR: Regular rate and rhythm, tachycardic. Normal S1, S2. ABDOMEN: Soft, distended. Bowel sounds positive. EXTREMITIES: Trace edema. Warm distal extremities, euthermic. CARDIOVASCULAR MEDICATIONS: Reviewed metoprolol tartrate 12.5 mg every 12 hours, lisinopril 40 mg daily, Lovenox 60 mg q.12 hours, potassium chloride 20 mEq tablets one. LABORATORY STUDIES: Studies reviewed sodium 148, potassium 3.7, chloride 103, bicarbonate 38, BUN 20, creatinine 0.49, glucose 114. White blood cells 9, hemoglobin 8, platelets 226. ASSESSMENT AND PLAN: A 44-year-old man with acute respiratory failure in the setting of COVID-19 pneumonia, hypertension, morbid obesity, anemia. RECOMMEND: Continue current cardiovascular medications. Continue supportive care. Continues to have high peak blood pressures, saturating somewhat better after intermittent running currently in decubitus position. MD OPAL Del Valle/REYESL /[id number]
[2019-09-12] MEDS: MIDAZOLAM HCL 5MG/ML 10ML VIAL 100 ML IV PRN ×3 (01:03→15:50)
[2019-09-12] MEDS: EYE LUBRICANT OPTH OINT 3.5GM TUBE OP SCH ×4 (01:04→17:06)
--- NOTE | 2019-09-12 01:07 | Progress Note ---
DATE: 09/11/2019 SUBJECTIVE: Intubated, sedated. Could not give any history. OBJECTIVE: VITAL SIGNS: Temperature 99.1, pulse 112, respiratory rate 34, blood pressure 112/61. GENERAL: Intubated, sedated. SKIN: No rash. HEENT: Endotracheal tube in place. LUNGS: Decreased breath sounds. HEART: Tachycardic. Normal S1, S2. GI: Soft, distended. NEUROLOGIC: Sedated. PSYCHIATRIC: Sedated. LABORATORY DATA: Laboratory harrison, white count 9, hemoglobin 8, platelet count 226. ABG shows a pH of 7.3, pCO2 78, pO2 70, creatinine is 0.49. Chest x-ray is unchanged. ASSESSMENT/PLAN: 1. Acute respiratory failure due to coronavirus disease-2019 pneumonia. We will continue to vent support per engineering surveyor and ID is on the case as well. The patient has completed his antibiotics and Decadron. His oxygenation was a little better after proning. 2. Chronic anemia. Hemoglobin stable. 3. Hypertension, stable. We will continue low-dose metoprolol. 4. Fluid, electrolytes, and nutrition. We will start TPN. 5. Abdominal distention. We will continue to monitor. 6. Gastrointestinal and deep vein thrombosis prophylaxes. Continue Lovenox 60 mg twice a day. MD ALIN Allred/ANGELA /[id number]
[2019-09-12] MEDS: PROPOFOL IV EMULSION 10MG/ML 100 ML IV PRN ×5 (01:09→22:30)
[2019-09-12] MEDS: FENTANYL 2000MCG/NS 250 250 ML IV PRN ×2 (05:37→10:17)
[2019-09-12 05:57] LABS: ALANINE AMINOTRANSFERASE 26 IU/L (0-55); ALBUMIN 2.2 g/dL (3.5-5.0); ALBUMIN/GLOBULIN RATIO 0.8 (0.8-2.0); ALKALINE PHOSPHATASE 63 IU/L (40-150); ANION GAP 7.5 mmol/L (8-16); BLOOD UREA NITROGEN 18 mg/dL (7-26); BUN/CREATININE RATIO 35 (6-25); CHLORIDE 103 mmol/L (98-107); CREATININE, SERUM 0.51 mg/dL (0.72-1.25); EST GLOMERULAR FILTRATION RATE > 60 ML/MIN (60-); GLUCOSE 120 mg/dL (74-118); POTASSIUM 3.5 mmol/L (3.5-5.1); SODIUM 148 mmol/L (136-145)
[2019-09-12 05:59] LABS: BASOPHILS % 0.1 % (0.0-1.0); EOSINOPHILS # (AUTO) 0.3 (0.0-0.4); EOSINOPHILS % 3.3 % (0.0-6.0); HEMATOCRIT 23.1 % (38.2-49.6); LYMPHOCYTES # (AUTO) 0.6 (1.0-3.2); LYMPHOCYTES % 8.4 % (18.0-39.1); MEAN CORPUSCULAR HEMOGLOBIN 29.2 pg (28-32); MEAN CORPUSCULAR HGB CONC 29.9 g/dL (31-35); MEAN CORPUSCULAR VOLUME 97.9 fL (81-99); MONOCYTES # (AUTO) 0.5 (0.2-0.8); MONOCYTES % 6.7 % (4.4-11.3); NEUTROPHILS # (AUTO) 6.2 (2.1-6.9); NEUTROPHILS % 80.7 % (38.7-80.0); PLATELET COUNT 214 x10e3/uL (140-360); RED BLOOD COUNT 2.36 x10e6/uL (4.3-5.7); RED CELL DISTRIBUTION WIDTH 13.3 % (11.7-14.4)
[2019-09-12 06:03] LABS: CARBON DIOXIDE 41 mmol/L (22-29)
[2019-09-12 06:33] LABS: HEMOGLOBIN 6.9 g/dL (14.0-18.0)
[2019-09-12] MEDS: ROCURONIUM BROMIDE 250 MG in SODIUM CHLORIDE 0.9% 250ML 225 ML IV PRN ×4 (06:37→20:37)
[2019-09-12] MEDS ORDERED: SODIUM CHLORIDE 0.9% 250ML 250 ML IV ONE (07:30)
--- NOTE | 2019-09-12 07:35 | Diagnostic Imaging Report ---
Examination: Single AP view of the chest. COMPARISON: Portable chest 09/11/2019 INDICATION: Intubated, COVID IMPRESSION: 1. Lines and Tubes: Endotracheal tube has distal tip projecting 4.2 cm above the fred. Other supporting lines and tubes are unchanged. 2. No significant interval change in diffuse bilateral interstitial alveolar opacities consistent with multifocal pneumonia. 3. Cardiomediastinal silhouette is normal. Pulmonary vasculature is obscured. 4. No acute bony abnormalities. Signed by: Dr. Aniket Loredo M.D. on 09/12/2019 7:32 AM
[2019-09-12] MEDS: ENOXAPARIN SOD INJ 60 MG/0.6 ML SYR SC SCH ×2 (08:38→20:36)
[2019-09-12] MEDS: DOCUSATE SODIUM LIQD 100 MG/10 ML UDC NG SCH ×2 (08:38→16:28)
[2019-09-12] MEDS: ZINC SULFATE 220 MG CAP PO SCH (08:38)
[2019-09-12] MEDS: CHOLECALCIFEROL 400 UNIT TAB PO SCH ×2 (08:38→20:36)
[2019-09-12] MEDS: ASCORBIC ACID 500 MG TAB PO SCH ×2 (08:38→20:36)
[2019-09-12] MEDS: PANTOPRAZOLE 40 MG 10ML VIAL IV SCH (08:38)
[2019-09-12 09:42] LABS: ABG HCO3 41 mmol/L (22-26); ABG PCO2 65 mmHg (35-45); ABG PH 7.41 (7.35-7.45); ABG PO2 84 mmHg (80-105)
[2019-09-12] MEDS ORDERED: POTASSIUM CHLORIDE 20MEQ/15ML UDC NG ONE (10:30)
[2019-09-12] MEDS: METOPROLOL TARTRATE 25 MG TAB PO SCH ×2 (11:00→20:36)
--- NOTE | 2019-09-12 12:45 | Progress Note ---
DATE: SUBJECTIVE: The patient is in the prone position. He is on a PRVC mode of ventilation at a rate of 32. Tidal volume is 370 and his FiO2 is 90%. His PEEP is set at 16. He remains on Versed and fentanyl, rocuronium, and propofol. PHYSICAL EXAMINATION: VITAL SIGNS: The blood pressure is 152/73, saturation is 91%, and heart rate is 110 to 120. HEENT: Shows no facial swelling or erythema. There is no oral endotracheal tube. CARDIAC: Reveals regular rate and rhythm with normal S1, S2. LUNGS: Auscultation of lungs reveals rhonchorous breath sounds bilaterally. There is no wheezing. ABDOMEN: Soft, nontender. There is no rebound or guarding. EXTREMITIES: Shows no leg edema or calf tenderness. There is no cyanosis or clubbing. SKIN: Shows no rashes. NEUROLOGICAL: Shows no focal abnormalities. LABORATORY DATA: Hemoglobin is 6.9. White blood cell count and platelet count are normal. Sodium is 148 and the carbon dioxide is 41. The BUN to creatinine ratio is 18 to 0.51. RADIOGRAPHIC DATA: Chest x-ray shows bilateral infiltrates. IMPRESSION: 1. Acute respiratory failure. 2. Viral pneumonia and COVID-19 infection. 3. Anemia, secondary to chronic blood loss. 4. Ileus. 5. Obesity. PLAN: 1. Transfuse 1 unit of packed red blood cells. 2. Continue current ventilator settings and adjust as tolerated. 3. Complete antibiotics. 4. Continue TPN. 5. Additional free water. 6. Lovenox. Case was discussed with Internal Medicine, mine shifter nursing, dayshift nursing, Respiratory, and Infectious Disease. Greater than 35 minutes in direct critical care time. MD SAMINA Angel/ANGELA /[id number]
--- NOTE | 2019-09-12 16:10 | NUR ---
Nutrition Intervention Note RD Recommendation(s) for Physician: - Recommend Standard TPN @ goal rate of 65 mL/hr with no lipids due to propofol rate (30% 500 mL dextrose: 234 g dextrose, 10% 500 mL amino acids: 78 g amino acids, total volume 1560 mL) provides 1107 kcal, 78 g protein. Remaining kcal provided by propofol - Propofol providing an additional 792 lipid kcal/day. -Recommend resuming enteral nutrition when medically appropriate Plan of Care: RD following, TF rec's, monitor adequacy and tolerance Nutrition reason for involvement: follow up RD Assessment 09/11: Follow up. Chart reviewed. Pt remains intubated and sedated. Pt is receiving 30 mL/hr of propofol per documentation which provides 792 lipid kcal. Tube feeding has been held due to abdominal distention and pt was started on TPN @ 42 mL/hr today. MD note indicates pt has an ileus. Recommendations provided. Will continue to monitor. 09/07: Follow up. Chart reviewed. Pt remains intubated and sedated. Pt is receiving 23.6 mL/hr of propofol per documentation which provides 623 lipid kcal. TF was at 20 mL/hr last night per chart. Per MD note, pts abdomen is distended and has not had a BM. Will continue to monitor. 09/04: Follow up. Pt remains intubated and sedated. Pt is receiving 9 mL/hr of propofol per documentation, which provides 238 lipid kcal. TF was at 20 mL/hr per chart yesterday. No additional administration rate is available. Will continue to monitor. 09/02: Follow up. Pt remains intubated, paralyzed, and sedated on Propofol and Versed. Pt requiring proning. TF rate at 10 ml/hr per TF documentation yesterday- inadequate EN currently, no additional EN administration available per chart. Recommend continuing EN while pt is proned by placing them in reverse Trendelenburg position. If unable to advance TF to goal rate, recommend considering PN. Chart reviewed. Will continue to monitor. Initial encounter with patient. Pt is sedated and orally intubated. Pt was not able to provide a nutrition Hx at the time of visit. Unable to observe oral cavity or perform a nutrition focused physical exam. Jevity 1.2 infusing at 20ml hr with a goal of 50ml/hr. Propofol provides 1.1kcal/ml EN provides 576 kcals, 26.64g of protein, and 387.36ml of free H2O Principal Problems/Diagnoses: CoVID 19 pneumonia PMH:No significant medical Hx, overweight/obesity GI: LBM 08/29, distended abdomen Skin: Intact Labs: 09/11: Na 148, BUN 18, Cr 0.51, Glu 120, Ca 8.0 09/07: Na 144, K 3.8, BUN 13, Cr 0.52, Glu 92, Ca 7.8 09/04: Na 141, K 4.0, BUN 21, Cr 0.63, Glu 122 09/02: Na 139, K 4.2, BUN 19, Cr 0.61, Gluc 101 Meds: fentanyl, propofol, protonix, vitamin D, vitamin C, colace, zinc sulfate, rocuronium, metoprolol, Ht: 67 in. Wt: 218 lbs (09/11/19) 219 lbs (08/28) 220 lbs (09/04) 215.31lb (09/02), 200.44lbs (08/29) BMI: 31.4kg/m2 (weight used- 200 lbs) IBW: 148 lbs Malnutrition Evaluation (08/30/2019) Unable to assess due to current isolation precautions. Will re-evaluate at follow-up as appropriate. Nutrition Prescription (Diet Order): TPN @ 42 mL/hr Jevity 1.2 @ 50 mL/hr TF is off due to abdominal distention/ileus Estimated Nutritional Needs: 8119-2797 calories/day (22-25 kcal/kg IBW) 101-135 g protein/day (1.5-2 g pro/kg IBW) Diet Adequacy: Not meeting calorie needs, Not meeting protein needs Diet Education Needs Assessment: Diet education not indicated. Nutrition Care Level: high Nutrition Diagnosis: Inadequate energy and protein intake related to intubation as evidenced by requiring alternative means of nutrition. Goal: Patient will meet 75-100% of estimated needs by follow up Progress: goal not met Interventions: Composition, Rate, Route Monitoring/Evaluation: Total energy intake, Total protein intake, Formula/Solution, Prescription medication, Weight change Signed: Nina Reese, RD, LD
--- NOTE | 2019-09-12 16:31 | Progress Note ---
DATE: SUBJECTIVE: Mr. Miles is in a prone position right now. He is in PRVC mode ventilation of 32, 370, PEEP of 16, FiO2 92% on Versed, . PHYSICAL EXAMINATION: HEENT: Not icteric. CHEST: Few crackles. HEAR: S1 and S2. ABDOMEN: Soft. LABORATORY DATA: White count of 7 and hemoglobin 6.9. Sodium 140, potassium 3.5, and creatinine 0.52. IMPRESSION: Respiratory failure, COVID-19, anemia, obesity, ileus, coagulase-negative Staph bacteremia contamination. PLAN: To continue supportive care. He finished his antibiotic. This is day #19 of admission. Continue supportive care as ordered. We will follow. MD MAYURI Taylor/MODL /[id number]
[2019-09-12] MEDS ORDERED: CENTRAL TPN FORMULA 1 BAG IV SCH (20:00)
[2019-09-12] MEDS ORDERED: VECURONIUM BROMIDE FOR INJ 20 MG VIAL IV STA (21:22)
[2019-09-13] VITALS (32 sets, daily range): BP systolic 110–188; BP diastolic 44–80
[2019-09-13] MEDS: EYE LUBRICANT OPTH OINT 3.5GM TUBE OP SCH ×5 (00:21→23:29)
[2019-09-13 00:46] LABS: ABG HCO3 42 mmol/L (22-26); ABG PCO2 74 mmHg (35-45); ABG PH 7.36 (7.35-7.45); ABG PO2 69 mmHg (80-105)
--- NOTE | 2019-09-13 01:08 | Progress Note ---
DATE: 09/12/2019 SUBJECTIVE: Intubated, cannot give any history. OBJECTIVE: VITAL SIGNS: Temperature 99.0, pulse 101, respiratory rate 33, blood pressure 143/63. GENERAL: Intubated, sedated. SKIN: No rash. HEENT: Endotracheal tube in place. LUNGS: Decreased breath sounds. HEART: Tachycardic. Normal S1, S2. GI: Soft, distended. Minimal bowel sounds. NEUROLOGIC: Sedated. PSYCHIATRIC: Sedated. LABORATORY DATA: Laboratory harrison, hemoglobin 6.9, creatinine 0.5. Chest x-ray unchanged. ASSESSMENT AND PLAN: 1. Acute respiratory failure due to COVID-19 pneumonia. We will continue vent support per ict development manager. ID is on the case as well. The patient has completed his antibiotics and Decadron. We will continue proning as tolerated. 2. Chronic blood loss anemia. We will give 1 unit of blood today. 3. Hypertension, stable. 4. Fluid, electrolytes, and nutrition. We will continue TPN. 5. Abdominal distention. Continue to monitor. 6. GI and DVT prophylaxis. Continue Lovenox 60 mg twice a day. Yiching MD ALIN Mcmillan/ANGELA /[id number]
--- NOTE | 2019-09-13 01:34 | Progress Note ---
DATE: 09/12/2019 Cardiology Progress Note SUBJECTIVE: Mr. Morgan remains intubated and sedated. OBJECTIVE: VITAL SIGNS: Temperature 97.7, heart rate 104, blood pressure 124/60, respiratory rate 34, O2 saturation 98%, BMI 34. GENERAL: Intubated, sedated. Prone position. NECK: Supple. CHEST: With scattered rales. Decreased breath sounds. CARDIOVASCULAR: Regular rate and rhythm. Normal S1 and S2. Distant heart sounds. ABDOMEN: Deferred. EXTREMITIES: Trace edema. Warm distal extremities. CARDIOVASCULAR MEDICATIONS: Reviewed. Metoprolol, lisinopril, Lovenox, and potassium chloride. LABORATORY STUDIES: Reviewed. Creatinine 0.5, glucose 120. White blood cell 7.6, hemoglobin 6.9. The patient had PRBC transfusion today. Platelets 214. ASSESSMENT AND PLAN: A 44-year-old man with COVID-19 pneumonia, acute respiratory failure, hypertension, morbid obesity. RECOMMEND: 1. Continue to monitor H and H status post PRBC transfusion. 2. Continue rest of cardiovascular medications. Monitor for acute bleeding. John Romero MD [facility]/MODL /[id number]
--- NOTE | 2019-09-13 02:36 | NUR ---
Pt placed in prone position @0900 pep report. Per protocol. pt returned to supine position @~0200. four RN's present and RT. Pt repositioned. Pt became hypertensive with sys>200, hypoxic with O2<40%. Pt immediately bagged and sedation increased. FiO2 increased to 100%. Current V/S HR 103, RR 33, O2 89%, and BP 148/47. Will continue to monitor and note all changes.
[2019-09-13] MEDS: FENTANYL 2000MCG/NS 250 250 ML IV PRN ×2 (04:04→13:20)
[2019-09-13] MEDS: MIDAZOLAM HCL 50 MG in SODIUM CHLORIDE 0.9% 100 ML 90 ML IV PRN ×3 (06:10→18:11)
[2019-09-13 06:49] LABS: ALANINE AMINOTRANSFERASE 24 IU/L (0-55); ALBUMIN 2.2 g/dL (3.5-5.0); ALBUMIN/GLOBULIN RATIO 0.7 (0.8-2.0); ALKALINE PHOSPHATASE 68 IU/L (40-150); ANION GAP 7.7 mmol/L (8-16); BLOOD UREA NITROGEN 15 mg/dL (7-26); BUN/CREATININE RATIO 34 (6-25); CALCIUM 7.9 mg/dL (8.4-10.2); CARBON DIOXIDE 40 mmol/L (22-29); CHLORIDE 104 mmol/L (98-107); CREATININE, SERUM 0.44 mg/dL (0.72-1.25); EST GLOMERULAR FILTRATION RATE > 60 ML/MIN (60-); GLUCOSE 134 mg/dL (74-118); POTASSIUM 3.7 mmol/L (3.5-5.1); SODIUM 148 mmol/L (136-145)
[2019-09-13] MEDS: ZINC SULFATE 220 MG CAP PO SCH (09:20)
[2019-09-13] MEDS: DOCUSATE SODIUM LIQD 100 MG/10 ML UDC NG SCH ×2 (09:20→17:55)
[2019-09-13] MEDS: ASCORBIC ACID 500 MG TAB PO SCH ×2 (09:20→21:52)
[2019-09-13] MEDS: METOPROLOL TARTRATE 25 MG TAB PO SCH ×2 (09:20→21:52)
[2019-09-13] MEDS: ENOXAPARIN SOD INJ 60 MG/0.6 ML SYR SC SCH ×2 (09:20→21:52)
[2019-09-13] MEDS: PANTOPRAZOLE 40 MG 10ML VIAL IV SCH (09:20)
[2019-09-13] MEDS: CHOLECALCIFEROL 400 UNIT TAB PO SCH ×2 (09:20→21:52)
[2019-09-13 09:21] LABS: ABG HCO3 39 mmol/L (22-26); ABG PCO2 69 mmHg (35-45); ABG PH 7.36 (7.35-7.45); ABG PO2 71 mmHg (80-105)
[2019-09-13] MEDS: PROPOFOL IV EMULSION 10MG/ML 100 ML IV PRN ×3 (09:21→16:00)
[2019-09-13] MEDS: ROCURONIUM BROMIDE 250 MG in SODIUM CHLORIDE 0.9% 250ML 225 ML IV PRN ×2 (09:21→14:43)
--- NOTE | 2019-09-13 11:36 | Progress Note ---
DATE: SUBJECTIVE: The patient was in the prone position last night, but is now back in the supine position. He still has some abdominal distention. His NG tube is placed to suction, but there is minimal drainage. The patient is currently on a PRVC mode of ventilation at a rate of 34 with a tidal volume of 350 and a FiO2 of 100%. His PEEP is set at 16. PHYSICAL EXAMINATION: VITAL SIGNS: The patient is afebrile. The blood pressure is 116/60 and saturation is 88%. He is receiving Versed as well as fentanyl and he is on rocuronium. He is currently on the PRVC as noted above. HEENT: Shows no facial swelling or erythema. There is an oral endotracheal tube in place. There is a PICC line. The patient also has an arterial line. CARDIAC: Reveals regular rate and rhythm with normal S1 and S2. LUNGS: Auscultation of lungs reveals rhonchorous breath sounds bilaterally. There is no wheezing. ABDOMEN: Soft and nontender. There is no rebound or guarding. EXTREMITIES: Shows no leg edema or calf tenderness. There is no cyanosis or clubbing. SKIN: Shows no rashes. NEUROLOGICAL: Shows no focal abnormalities. The patient is sedated and paralyzed. LABORATORY DATA: BUN to creatinine ratio is normal. The other electrolytes are within normal limits. Albumin is 2.2. RADIOGRAPHIC DATA: Chest x-ray and abdominal x-ray are pending. IMPRESSION: 1. Acute respiratory failure. 2. Viral pneumonia and COVID-19 infection. 3. Anemia secondary to chronic blood loss. 4. Ileus. 5. Obesity. PLAN: 1. Continue current ventilator settings and monitor ABG. 2. Place back in the prone position later today. 3. Continue TPN. 4. Complete antibiotics. 5. Lovenox. 6. Repeat CBC. 7. Plan is planed with insurance job titles nursing, day shift nursing, Respiratory, Infectious Disease, and Internal Medicine. Greater than 35 minutes in direct critical care time. Maximilian Lowry MD [facility]/MODL /[id number]
--- NOTE | 2019-09-13 11:39 | Diagnostic Imaging Report ---
EXAMINATION: CHEST XRAY POST PROCEDURE INDICATION: distended abdomen COMPARISON: Multiple prior chest x-ray examinations most recent dated 09/12/2019. FINDINGS: AP view TUBES and LINES: There is an endotracheal tube in place with distal tip 5 cm above the level of fred. There is NG tube in place with distal tip outside the confines of this exam. LUNGS/PLEURA: Lungs are well inflated. There are unchanged bilateral patchy opacities compatible with multifocal pneumonia.. There is persistent obscuration of the bilateral hemidiaphragm which could be due to effusion and or atelectasis. HEART AND MEDIASTINUM: The cardiomediastinal silhouette is obscured by adjacent opacities. BONES AND SOFT TISSUES: No acute osseous lesion. Soft tissues are unremarkable. UPPER ABDOMEN: No free air under the diaphragm. IMPRESSION: Unchanged bilateral patchy opacities compatible with multifocal pneumonia. Persistent obscuration of the bilateral hemidiaphragms could be due to effusion and or atelectasis. Signed by: Chirag Polanco MD on 09/13/2019 11:36 AM
--- NOTE | 2019-09-13 11:43 | Diagnostic Imaging Report ---
EXAM: Abdomen Radiograph INDICATION: distended abdomen COMPARISON: KUB dated 09/04/2019. FINDINGS: TUBES and LINES: There is a nasogastric tube in place with distal tip in the stomach. LOWER CHEST: No abnormalities in the lower chest. ABDOMEN: The bowel loops are unremarkable with no dilatation or signs of obstruction. No pneumoperitoneum. No abnormal abdominal calcifications. BONES AND SOFT TISSUES: No acute osseous lesion. Soft tissues are unremarkable. IMPRESSION: No acute abdominal radiographic abnormality. Signed by: Chirag Polanco MD on 09/13/2019 11:40 AM
[2019-09-13 11:58] LABS: BASOPHILS % 0.1 % (0.0-1.0); EOSINOPHILS # (AUTO) 0.3 (0.0-0.4); EOSINOPHILS % 3.5 % (0.0-6.0); HEMATOCRIT 26.3 % (38.2-49.6); HEMOGLOBIN 7.8 g/dL (14.0-18.0); LYMPHOCYTES # (AUTO) 0.4 (1.0-3.2); LYMPHOCYTES % 4.7 % (18.0-39.1); MEAN CORPUSCULAR HEMOGLOBIN 29.1 pg (28-32); MEAN CORPUSCULAR HGB CONC 29.7 g/dL (31-35); MEAN CORPUSCULAR VOLUME 98.1 fL (81-99); MONOCYTES # (AUTO) 0.5 (0.2-0.8); MONOCYTES % 5.4 % (4.4-11.3); NEUTROPHILS # (AUTO) 7.1 (2.1-6.9); NEUTROPHILS % 85.3 % (38.7-80.0); PLATELET COUNT 173 x10e3/uL (140-360); RED BLOOD COUNT 2.68 x10e6/uL (4.3-5.7); RED CELL DISTRIBUTION WIDTH 15.2 % (11.7-14.4)
[2019-09-13 13:23] LABS: BAND NEUTROPHILS % (MANUAL) 4 %; LYMPHOCYTES % (MANUAL) 5 % (19-48)
[2019-09-13 13:24] LABS: EOSINOPHILS % (MANUAL) 2 % (0-7)
[2019-09-13 13:26] LABS: MONOCYTES % (MANUAL) 5 % (3.4-9.0); NEUTROPHILS % (MANUAL) 84 % (40-74); PLATELET ESTIMATE ADEQUATE; PLATELET MORPHOLOGY COMMENT NORMAL; RBC MORPHOLOGY COMMENT NORMAL
--- NOTE | 2019-09-13 16:51 | Progress Note ---
DATE: SUBJECTIVE: Mr. Miles remains in intensive care unit, this is day #20. He was on prone position. PHYSICAL EXAMINATION: GENERAL: He is on TPN. HEENT: He is not icteric. NECK: Supple. CHEST: Few crackles. HEART: S1, S2. ABDOMEN: Soft, distended. Bowel sounds present. EXTREMITIES: No edema. LABORATORY DATA: White count 8.29, hemoglobin 7.8 received blood unit. Sodium 148, potassium 3.7, creatinine of 0.44. MEDICATIONS: The patient's medication list reviewed. Continue Lovenox. He is off antibiotic. IMPRESSION: There is concern of ileus was either erythromycin and Reglan, respiratory failure, obesity. We will follow. MD MAYURI Taylor/MODL /[id number]
[2019-09-13] MEDS: SODIUM CHLORIDE 0.9% IV SCH (18:00)
[2019-09-13] MEDS: ERYTHROMYCIN LACTOBIONATE IV SCH (18:00)
[2019-09-13] MEDS ORDERED: CENTRAL TPN FORMULA 1 BAG IV SCH (20:00)
[2019-09-13 21:08] LABS: ABG HCO3 39 mmol/L (22-26); ABG PCO2 87 mmHg (35-45); ABG PH 7.26 (7.35-7.45); ABG PO2 79 mmHg (80-105)
[2019-09-13] MEDS ORDERED: ALBUMIN 25% 25GM 100ML 0.25 GM/ML BTL IV STA (21:30)
[2019-09-13] MEDS: METOCLOPRAMIDE HCL 10 MG/2ML VIAL IV SCH (21:52)
[2019-09-14] VITALS (32 sets, daily range): BP systolic 101–186; BP diastolic 52–85
--- NOTE | 2019-09-14 01:03 | Progress Note ---
DATE: 09/13/2019 SUBJECTIVE: Intubated, cannot give history. OBJECTIVE: VITAL SIGNS: Temperature 97.0, pulse 117, respiratory rate 33, blood pressure 115/61. GENERAL: Sedated. SKIN: No rash. HEENT: Endotracheal tube in place. HEART: Tachycardic. Normal S1, S2. LUNGS: Decreased breath sounds bilaterally. GI: Soft and distended. Minimal bowel sounds. NEUROLOGIC: Sedated. PSYCHIATRIC: Sedated. LABORATORY DATA: Laboratory harrison, KUB is benign. Chest x-ray unchanged. A white count 8, hemoglobin 7.8, platelet count 173, with 4% bands. Creatinine 0.4. ABG shows a pH of 7.26, pCO2 87, PO2 79. ASSESSMENT AND PLAN: 1. Acute respiratory failure due to COVID-19 pneumonia. We will continue vent support per furniture repair technician. ID is following as well. The patient has completed his antibiotics and Decadron. We will continue proning as tolerated. 2. Chronic blood loss anemia, status post 1 unit of packed red blood cells. His hemoglobin has responded appropriately. 3. Abdominal distention. GI has been consulted. 4. Hypertension. Currently stable. 5. Fluid, electrolytes, and nutrition. We will continue TPN. 6. Gastrointestinal and deep vein thrombosis prophylaxis. Continue Lovenox 60 mg twice a day. MD ALIN Allred/ANGELA /[id number]
[2019-09-14] MEDS: ROCURONIUM BROMIDE 250 MG in SODIUM CHLORIDE 0.9% 250ML 225 ML IV PRN ×4 (01:47→23:00)
[2019-09-14] MEDS: MIDAZOLAM HCL 50 MG in SODIUM CHLORIDE 0.9% 100 ML 90 ML IV PRN ×3 (01:48→22:50)
[2019-09-14] MEDS: PROPOFOL IV EMULSION 10MG/ML 100 ML IV PRN ×4 (01:49→18:14)
--- NOTE | 2019-09-14 02:13 | Progress Note ---
DATE: 09/13/2019 Cardiology Progress Note SUBJECTIVE: Intubated and sedated. OBJECTIVE: VITAL SIGNS: Temperature 98.9, heart rate 109, sinus tachycardia on telemetry, blood pressure 115/58, respiratory rate 33, O2 saturation 89% on vent support. GENERAL: Intubated and sedated. NECK: Supple. CHEST: With rales and decreased breath sounds. CARDIOVASCULAR: Regular rate and rhythm. Normal S1, S2. Sinus tachycardia. ABDOMEN: Distended with bowel sounds decreased. EXTREMITIES: Trace edema. CARDIOVASCULAR MEDICATIONS: Reviewed. Lovenox 60 mg q.12 hours, metoprolol tartrate 12.5 mg every 12 hours, and lisinopril 40 mg daily. LABORATORY STUDIES: Reviewed. Creatinine 0.4, glucose 134. White blood cells 8.2, hemoglobin 7.8, platelets 173. INR 0.9. AST 18, ALT 24, alkaline phosphatase 68. ASSESSMENT AND PLANS: A 44-year-old man with COVID-19 infection, community-acquired pneumonia, acute respiratory failure, hypertension, morbid obesity, and ileus and anemia. Recommend continue supportive care. Worsening respiratory parameters and abdominal distention observed. Guarded prognosis. Continue antihypertensive therapy. MD OPAL Del Valle/ANGELA /[id number]
[2019-09-14] MEDS ORDERED: BISACODYL 10 MG SUPP PR ONE ×2 (02:15→10:00)
[2019-09-14 05:45] LABS: BASOPHILS % 0.2 % (0.0-1.0); EOSINOPHILS # (AUTO) 0.4 (0.0-0.4); EOSINOPHILS % 5.7 % (0.0-6.0); HEMATOCRIT 25.4 % (38.2-49.6); HEMOGLOBIN 7.7 g/dL (14.0-18.0); LYMPHOCYTES # (AUTO) 0.6 (1.0-3.2); LYMPHOCYTES % 9.3 % (18.0-39.1); MEAN CORPUSCULAR HEMOGLOBIN 30.4 pg (28-32); MEAN CORPUSCULAR HGB CONC 30.3 g/dL (31-35); MEAN CORPUSCULAR VOLUME 100.4 fL (81-99); MONOCYTES # (AUTO) 0.5 (0.2-0.8); MONOCYTES % 7.2 % (4.4-11.3); NEUTROPHILS # (AUTO) 4.9 (2.1-6.9); PLATELET COUNT 139 x10e3/uL (140-360); RED BLOOD COUNT 2.53 x10e6/uL (4.3-5.7); RED CELL DISTRIBUTION WIDTH 14.7 % (11.7-14.4)
[2019-09-14] MEDS: SODIUM CHLORIDE 0.9% IV SCH ×3 (06:00)
[2019-09-14] MEDS: ALBUMIN 25% 25GM 100ML 0.25 GM/ML BTL IV SCH ×5 (06:00→23:00)
[2019-09-14] MEDS: ERYTHROMYCIN LACTOBIONATE IV SCH ×3 (06:00)
[2019-09-14 06:11] LABS: ANION GAP 6.8 mmol/L (8-16); BLOOD UREA NITROGEN 13 mg/dL (7-26); BUN/CREATININE RATIO 27 (6-25); CARBON DIOXIDE 40 mmol/L (22-29); CHLORIDE 103 mmol/L (98-107); CREATININE, SERUM 0.49 mg/dL (0.72-1.25); EST GLOMERULAR FILTRATION RATE > 60 ML/MIN (60-); GLUCOSE 102 mg/dL (74-118); POTASSIUM 3.8 mmol/L (3.5-5.1); SODIUM 146 mmol/L (136-145)
[2019-09-14] MEDS: FENTANYL 2000MCG/NS 250 250 ML IV PRN (06:15)
[2019-09-14] MEDS: EYE LUBRICANT OPTH OINT 3.5GM TUBE OP SCH ×3 (06:16→16:59)
[2019-09-14 06:28] LABS: FERRITIN 566.36 ng/mL (21.81-274.66)
[2019-09-14] MEDS: METOCLOPRAMIDE HCL 10 MG/2ML VIAL IV SCH ×3 (06:37→22:30)
[2019-09-14 07:33] LABS: ABG HCO3 38 mmol/L (22-26); ABG PCO2 78 mmHg (35-45); ABG PO2 99 mmHg (80-105)
[2019-09-14] MEDS: ENOXAPARIN SOD INJ 60 MG/0.6 ML SYR SC SCH ×2 (09:15→21:00)
[2019-09-14] MEDS: ZINC SULFATE 220 MG CAP PO SCH (09:15)
[2019-09-14] MEDS: METOPROLOL TARTRATE 25 MG TAB PO SCH ×2 (09:15→21:00)
[2019-09-14] MEDS: DOCUSATE SODIUM LIQD 100 MG/10 ML UDC NG SCH ×2 (09:15→16:57)
[2019-09-14] MEDS: PANTOPRAZOLE 40 MG 10ML VIAL IV SCH (09:15)
[2019-09-14] MEDS: ASCORBIC ACID 500 MG TAB PO SCH ×2 (09:15→21:00)
[2019-09-14] MEDS: CHOLECALCIFEROL 400 UNIT TAB PO SCH ×2 (09:15→21:00)
[2019-09-14 10:57] LABS: MAGNESIUM 2.4 MG/DL (1.3-2.1); PHOSPHORUS 2.8 MG/DL (2.3-4.7)
--- NOTE | 2019-09-14 11:39 | Diagnostic Imaging Report ---
EXAMINATION: CHEST SINGLE (PORTABLE) INDICATION: resp failure COMPARISON: Multiple prior chest x-ray examinations most recent performed earlier same day FINDINGS: AP view TUBES and LINES: There is an endotracheal tube in place with distal tip 5 cm above the level of fred. There is NG tube in place with distal tip outside the confines of this exam. There is a left-sided PICC line in place with distal tip in SVC. LUNGS/PLEURA: Lungs are well inflated. There are slightly worsened bilateral patchy opacities compatible with multifocal pneumonia.. There is persistent obscuration of the bilateral hemidiaphragm which could be due to effusion and or atelectasis. HEART AND MEDIASTINUM: The cardiomediastinal silhouette is obscured by adjacent opacities. BONES AND SOFT TISSUES: No acute osseous lesion. Soft tissues are unremarkable. UPPER ABDOMEN: No free air under the diaphragm. IMPRESSION: Slightly worsened bilateral patchy opacities compatible with multifocal pneumonia Persistent obscuration of the bilateral hemidiaphragms could be due to effusion and or atelectasis. Signed by: Chirag Polanco MD on 09/14/2019 11:36 AM
[2019-09-14] MEDS ORDERED: FUROSEMIDE INJ 10 MG/ML 4 ML VIAL IV ONE (13:30)
--- NOTE | 2019-09-14 13:31 | Progress Note ---
DATE: SUBJECTIVE: The patient is now in the prone position. He remains on a PRVC mode of ventilation at a rate of 32 with a tidal volume of 360. His PEEP is set at 14 and his FiO2 is set at 80%. He is on Versed and fentanyl along with rocuronium. PHYSICAL EXAMINATION: VITAL SIGNS: Blood pressure is 117/65, saturation is 95%, and pulse is 110. HEENT: Shows no facial swelling or erythema. CARDIAC: Reveals regular rate and rhythm with normal S1 and S2. LUNGS: Auscultation of lungs reveals decreased breath sounds at the bases. There is no wheezing. ABDOMEN: Soft and nontender. There is no rebound or guarding. EXTREMITIES: Show no leg edema or calf tenderness. There is no cyanosis or clubbing. SKIN: Shows no rashes. NEUROLOGICAL: Shows the patient to be sedated and paralyzed. LABORATORY DATA: White blood cell count is 6.3, hemoglobin is 7.7, and platelet count is 139. Blood gases 7.3, 78, and 99. Bicarbonate is 38. RADIOGRAPHIC DATA: Chest x-ray shows worsening bilateral opacities. IMPRESSION: 1. Acute respiratory failure. 2. Viral pneumonia and coronavirus disease 2019 infection. 3. Anemia secondary to chronic blood loss. 4. Ileus. 5. Obesity. PLAN: 1. Continue current ventilator settings and monitor ABG. 2. Continue ventilating. The patient is in prone position. 3. Continue TPN. 4. Lovenox. 5. Lasix and albumin. 6. Plan discussed with nightshift nursing, dayshift nursing, Respiratory, and Infectious Disease. Greater than 35 minutes in direct critical care time. MD SAMINA Angel/REYESL /[id number]
[2019-09-14] MEDS ORDERED: CENTRAL TPN FORMULA 1 BAG IV SCH (20:00)
--- NOTE | 2019-09-14 20:16 | Progress Note ---
DATE: 09/14/2019 Cardiology Progress Note SUBJECTIVE: Remains intubated, sedated, paralyzed in prone position. OBJECTIVE: VITAL SIGNS: Temperature 99.4, heart rate 128, respiratory rate 34, blood pressure 154/78, O2 saturation 93% on mechanical ventilator support, intubated, sedated, in prone position. NECK: Supple. CHEST: With rales and decreased breath sounds. CARDIOVASCULAR: Regular rate and rhythm. Normal S1 and S2. ABDOMEN: Deferred as patient in prone position. EXTREMITIES: Warm. Trace edema. MEDICATIONS: Cardiovascular medications reviewed. Metoprolol tartrate 12.5 mg every 12 hours, hydralazine 10 mg q.4 hours p.r.n. IV, Lovenox 60 mg subcu q.12 hours, lisinopril discontinued. LABORATORY DATA: White blood cells 6, hemoglobin 7.7, platelets 139. INR 0.9, glucose 152 with less creatinine 0.4. ASSESSMENT: 1. Acute respiratory failure, requiring ventilatory support in the setting of viral pneumonia. Coronavirus-19 infection. Anemia related to suspected chronic blood loss. 2. Ileus. 3. Morbid obesity. 4. Hypertension. RECOMMENDATIONS: 1. Continue metoprolol and supportive care. 2. Continue Lovenox. 3. Monitor hemoglobin and hematocrit. The patient is status post PRBC transfusion. 4. Continue TPN. MD OPAL Del Valle/ANGELA /[id number]
[2019-09-14 21:20] LABS: ABG PH 7.33 (7.35-7.45)
[2019-09-14 21:21] LABS: ABG HCO3 43 mmol/L (22-26); ABG PCO2 81 mmHg (35-45); ABG PO2 70 mmHg (80-105)
--- NOTE | 2019-09-14 22:47 | Progress Note ---
DATE: 09/14/2019 SUBJECTIVE: Sedated, cannot give any history. OBJECTIVE: VITAL SIGNS: Temperature 99.4, pulse 125, respiratory rate 36, blood pressure 113/61. GENERAL: Sedated. HEENT: Endotracheal tube in place. SKIN: No rash. LUNGS: Decreased breath sounds. HEART: Tachycardic. Normal S1, S2. GI: Abdomen is distended. Minimal bowel sounds. NEUROLOGIC: Sedated. PSYCHIATRIC: Sedated. LABORATORY DATA: Laboratory harrison, hemoglobin 7.7, platelet count 139, creatinine 0.49. ASSESSMENT AND PLAN: 1. Acute respiratory failure due to coronavirus disease-19 pneumonia. We will continue vent support per chaplaincy. ID is following as well. The patient has completed his antibiotics and Decadron. We will continue to prone as tolerated. 2. Chronic blood loss anemia, stable. 3. Abdominal distention per GI. 4. Hypertension, currently acceptable. 5. Fluids, electrolytes, and nutrition. We will continue TPN. 6. Gastrointestinal and deep vein thrombosis prophylaxis. Lovenox 60mg b.i.d. Yoletteching MD ALIN Mcmillan/ANGELA /[id number]
[2019-09-15] VITALS (22 sets, daily range): BP systolic 104–179; BP diastolic 45–86
[2019-09-15] MEDS: PROPOFOL IV EMULSION 10MG/ML 100 ML IV PRN ×4 (01:15→17:12)
[2019-09-15] MEDS ORDERED: MAGNESIUM HYDROXIDE 30 ML UDC PO ONE ×2 (02:45→09:00)
[2019-09-15] MEDS: ALBUMIN 25% 25GM 100ML 0.25 GM/ML BTL IV SCH (03:00)
[2019-09-15] MEDS: FENTANYL 2000MCG/NS 250 250 ML IV PRN ×3 (03:30→21:46)
[2019-09-15] MEDS: ROCURONIUM BROMIDE 250 MG in SODIUM CHLORIDE 0.9% 250ML 225 ML IV PRN ×4 (04:10→18:41)
[2019-09-15] MEDS: MIDAZOLAM HCL 50 MG in SODIUM CHLORIDE 0.9% 100 ML 90 ML IV PRN ×3 (05:24→18:00)
[2019-09-15] MEDS: METOCLOPRAMIDE HCL 10 MG/2ML VIAL IV SCH ×3 (05:45→22:27)
[2019-09-15] MEDS: EYE LUBRICANT OPTH OINT 3.5GM TUBE OP SCH ×4 (05:46→16:20)
[2019-09-15] MEDS ORDERED: MINERAL OIL 132 ML BTL PR ONE (06:00)
[2019-09-15 06:10] LABS: BASOPHILS % 0.2 % (0.0-1.0); EOSINOPHILS # (AUTO) 0.2 (0.0-0.4); EOSINOPHILS % 3.1 % (0.0-6.0); HEMATOCRIT 22.3 % (38.2-49.6); LYMPHOCYTES # (AUTO) 0.4 (1.0-3.2); LYMPHOCYTES % 8.4 % (18.0-39.1); MEAN CORPUSCULAR HEMOGLOBIN 28.6 pg (28-32); MEAN CORPUSCULAR HGB CONC 29.1 g/dL (31-35); MEAN CORPUSCULAR VOLUME 98.2 fL (81-99); MONOCYTES # (AUTO) 0.4 (0.2-0.8); MONOCYTES % 7.6 % (4.4-11.3); NEUTROPHILS # (AUTO) 4.1 (2.1-6.9); NEUTROPHILS % 79.7 % (38.7-80.0); PLATELET COUNT 121 x10e3/uL (140-360); RED BLOOD COUNT 2.27 x10e6/uL (4.3-5.7); RED CELL DISTRIBUTION WIDTH 14.4 % (11.7-14.4)
[2019-09-15 06:29] LABS: HEMOGLOBIN 6.5 g/dL (14.0-18.0)
[2019-09-15 06:39] LABS: ANION GAP 7.7 mmol/L (8-16); BLOOD UREA NITROGEN 11 mg/dL (7-26); BUN/CREATININE RATIO 21 (6-25); CALCIUM 8.1 mg/dL (8.4-10.2); CHLORIDE 103 mmol/L (98-107); CREATININE, SERUM 0.53 mg/dL (0.72-1.25); EST GLOMERULAR FILTRATION RATE > 60 ML/MIN (60-); GLUCOSE 103 mg/dL (74-118); POTASSIUM 3.7 mmol/L (3.5-5.1); SODIUM 148 mmol/L (136-145)
[2019-09-15 06:45] LABS: CARBON DIOXIDE 41 mmol/L (22-29)
--- NOTE | 2019-09-15 07:05 | NUR ---
infectious disease per his note This is late entry for 09/14/2019 Patient seen and examined sure if you discuss with medical to discuss with critical care at length Please refer to the orders All lab reviewed all medication list reviewed VITAL SIGNS: Temperature 99.4, pulse 125, respiratory rate 36, blood pressure 113/61. GENERAL: Sedated. HEENT: Endotracheal tube in place. SKIN: No rash. LUNGS: Decreased breath sounds. HEART: Tachycardic. Normal S1, S2. GI: Abdomen is distended. Minimal bowel sounds. NEUROLOGIC: Sedated. PSYCHIATRIC: Sedated. LABORATORY DATA: Laboratory harrison, hemoglobin 7.7, platelet count 139, creatinine 0.49. ASSESSMENT AND PLAN: 1. Acute respiratory failure due to coronavirus disease-19 pneumonia. We will continue vent support per product marketing intern. The patient has completed his antibiotics and Decadron. We will continue to prone as tolerated. 2. Chronic blood loss anemia, stable. 3. Abdominal distention per GI. 4. Hypertension, currently acceptable. 5. Fluids, electrolytes, and nutrition. We will continue TPN. 6. Gastrointestinal and deep vein thrombosis prophylaxis. Lovenox 60mg b.i.d
--- NOTE | 2019-09-15 07:05 | NUR ---
Infectious disease progress note patient seen and examined chart reviewed medication list reviewed discussed with medical team VITAL SIGNS: Temperature 99.4, pulse 125, respiratory rate 36, blood pressure 113/61. GENERAL: Sedated. HEENT: Endotracheal tube in place. SKIN: No rash. LUNGS: Decreased breath sounds. HEART: Tachycardic. Normal S1, S2. GI: Abdomen is distended. Minimal bowel sounds. NEUROLOGIC: Sedated. PSYCHIATRIC: Sedated. LABORATORY DATA: Laboratory harrison, hemoglobin 7.7, platelet count 139, creatinine 0.49. ASSESSMENT AND PLAN: 1. Acute respiratory failure due to coronavirus disease-19 pneumonia. We will continue vent support per cream beater. ll. The patient has completed his antibiotics and Decadron. We will continue to prone as tolerated. 2. Chronic blood loss anemia, stable. 3. Abdominal distention per GI. 4. Hypertension, currently acceptable. 5. Fluids, electrolytes, and nutrition. We will continue TPN. 6. Gastrointestinal and deep vein thrombosis prophylaxis. Lovenox 60mg b.i.d
[2019-09-15] MEDS ORDERED: SODIUM CHLORIDE 0.9% 250ML 250 ML IV SCH (07:30)
[2019-09-15] MEDS: IRON SUCROSE 100 MG in SODIUM CHLORIDE 0.9% 100 ML 100 ML IV SCH (08:14)
[2019-09-15] MEDS: PANTOPRAZOLE 40 MG 10ML VIAL IV SCH (08:14)
[2019-09-15] MEDS ORDERED: FUROSEMIDE INJ 10 MG/ML 2 ML VIAL IV ONE (09:00)
[2019-09-15] MEDS: METOPROLOL TARTRATE 25 MG TAB PO SCH (09:27)
[2019-09-15] MEDS: DOCUSATE SODIUM LIQD 100 MG/10 ML UDC NG SCH ×2 (09:27→16:19)
[2019-09-15] MEDS: CYANOCOBALAMIN INJ 1,000 MCG/ML VIAL IM SCH (09:27)
[2019-09-15] MEDS: ASCORBIC ACID 500 MG TAB PO SCH (09:27)
[2019-09-15] MEDS: ZINC SULFATE 220 MG CAP PO SCH (09:28)
[2019-09-15] MEDS: CHOLECALCIFEROL 400 UNIT TAB PO SCH (09:28)
[2019-09-15] MEDS: ENOXAPARIN SOD INJ 60 MG/0.6 ML SYR SC SCH (09:31)
[2019-09-15 10:47] LABS: ABG PH 7.43 (7.35-7.45)
[2019-09-15 10:48] LABS: ABG HCO3 43 mmol/L (22-26); ABG PCO2 66 mmHg (35-45); ABG PO2 71 mmHg (80-105)
[2019-09-15] MEDS ORDERED: MIDAZOLAM HCL 5MG/ML 10ML VIAL 100 ML BAG IV ONE (10:50)
--- NOTE | 2019-09-15 11:17 | Diagnostic Imaging Report ---
EXAMINATION: CHEST SINGLE (PORTABLE) INDICATION: Respiratory failure COMPARISON: Chest radiograph 09/14/2019 FINDINGS: LINES/TUBES:Endotracheal tube terminates 5 cm above the fred. Left PICC line terminates at the superior cavoatrial junction. Enteric tube projects below the diaphragm. EKG leads overlie the chest. LUNGS:Lung volumes are low. Unchanged bilateral multifocal opacities. PLEURA:No pleural effusion or pneumothorax. MEDIASTINUM:The cardiomediastinal silhouette appears normal in size and shape. BONES/SOFT TISSUES:No acute osseous injury. ABDOMEN:No free air under the diaphragm. IMPRESSION: Unchanged bilateral multifocal opacities consistent with known pneumonia. Signed by: Farrah Pierson MD on 09/15/2019 11:13 AM
[2019-09-15] MEDS ORDERED: SODIUM CHLORIDE 0.9% 250ML 250 ML ONE (11:23)
--- NOTE | 2019-09-15 11:27 | Diagnostic Imaging Report ---
EXAM: US ABDOMEN COMPLETE DATE: 09/15/2019 9:56 AM INDICATION: Abdominal distention COMPARISON: None TECHNIQUE: Transverse and longitudinal cruz scale and color doppler sonographic images of the upper abdomen were obtained. FINDINGS: LIVER 17.9 cm in the right midclavicular line. Normal echogenicity of the liver with normal contour, no masses. SPLEEN 16.7 cm in maximum diameter. Normal echogenicity, no masses. GALLBLADDER No gallbladder wall thickening, distension, stone, or pericholecystic fluid. Negative reported sonographic Ruiz's sign. The gallbladder wall measures 5mm BILE DUCTS No intra nor extra-hepatic biliary dilation. Common bile duct not well visualized PANCREAS: Not well visualized due to bowel gas. RIGHT KIDNEY: 10.4 cm Echogenicity: Normal Collecting System: No hydronephrosis Stones: None Cyst/Mass: None LEFT KIDNEY: 12.8 cm Echogenicity: Normal Collecting System: No hydronephrosis Stones: None Cyst/Mass: None VESSELS: Aorta: Not well visualized due to bowel gas. Inferior Vena Cava: Not well visualized due to bowel gas. Main Portal Vein: 1.0 cm, normal size with hepatopetal flow. FREE FLUID: None IMPRESSION: Mild hepatomegaly. Signed by: Farrah Pierson MD on 09/15/2019 11:24 AM
--- NOTE | 2019-09-15 11:33 | Progress Note ---
DATE: SUBJECTIVE: The patient is now in a supine position. He was recently switched from the prone position to supine position. He remains on a PRVC at a rate of 30 with a tidal volume of 350. His PEEP is set at 16. His FiO2 is 100%. PHYSICAL EXAMINATION: VITAL SIGNS: Stable, blood pressure is 126/47, saturation is 89%. HEENT: He on the current ventilator settings. He has a nasogastric tube in place. There is an oral endotracheal tube. He has a PICC line in place as well as an arterial line. CARDIAC: Reveals regular rate and rhythm with normal S1, S2. LUNGS: Auscultation of lungs reveals crackles at the bases. There is no wheezing. ABDOMEN: Soft and nontender. There is no rebound or guarding. EXTREMITIES: Shows no leg edema or calf tenderness. There is no cyanosis or clubbing. SKIN: Shows no rashes. NEUROLOGICAL: Shows no focal abnormalities. LABORATORY DATA: Hemoglobin is 6.5, and the platelet count is 121. BUN to creatinine ratio is normal. Other electrolytes are within normal limits. IMPRESSION: 1. Acute respiratory failure. 2. Thrombocytopenia and anemia. 3. Ileus. 4. Obesity. PLAN: 1. Continue current ventilator settings and monitor ABG. 2. Continue TPN. 3. Continue Lovenox. 4. The patient received packed red blood cells. 5. Fibrinogen level along with coags to rule out DIC. 6. Hematology consultation. 7. Case discussed with nightshift nursing, dayshift nursing, Respiratory, Internal Medicine and Infectious Disease. 8. Greater than 35 minutes in direct critical care time. Maximilian Lowry MD [facility]/REYES[facility] /[id number]
--- NOTE | 2019-09-15 13:19 | Progress Note ---
DATE: 09/15/2019 Cardiology Progress Note SUBJECTIVE: Remains intubated, sedated. OBJECTIVE: VITAL SIGNS: Temperature 99.3, heart rate 111, sinus tachycardia on telemetry, blood pressure 137/50, respiratory rate 36, O2 sats 78%. BMI 38. GENERAL: Intubated, sedated. NECK: Supple. CHEST: Rales and decreased breath sounds. ABDOMEN: Distended. Abdominal ultrasound to be performed currently. EXTREMITIES: With trace edema. CARDIOVASCULAR MEDICATIONS: Reviewed. Metoprolol tartrate, Lovenox, lisinopril. LABORATORY DATA: Reviewed. Sodium 148, potassium 3.7, chloride 103, bicarbonate 41, BUN 11, creatinine 0.5, glucose 103. White blood cells 5, hemoglobin 6.5, platelets 121. ASSESSMENT AND PLAN: Coronavirus disease-19 infection, community-acquired pneumonia and acute respiratory failure, abdominal distention, undergoing evaluation, hypertension, morbid obesity, consider PRBC transfusions as needed to maintain hemoglobin over 7. Continue rest of cardiovascular medications. Workup for abdominal distention underway. MD OPAL Del Valle/ANGELA /[id number]
[2019-09-15 14:34] LABS: INR 1.12; PROTHROMBIN TIME 15.1 seconds (11.9-14.5)
[2019-09-15 14:35] LABS: PARTIAL THROMBOPLASTIN TIME 41.1 seconds (23.8-35.5)
--- NOTE | 2019-09-15 15:30 | Progress Note ---
DATE: SUBJECTIVE: Mr. Miles remains in intensive care unit. OBJECTIVE: VITAL SIGNS: Stable, afebrile. HEENT: He is not icteric. NECK: Supple. CHEST: Crackles. HEART: S1 and S2. No murmur. ABDOMEN: Soft. Slowly getting better. Discussed with medical team. IMPRESSION: COVID-19. Continue with plan as ordered. MD MAYURI Taylor/ANGELA /[id number]
--- NOTE | 2019-09-15 18:43 | NUR ---
Pt turned to supine position at 0915 this morning. Pt having low saturations of 60-70% initially after laying supine (Vent settings increased to FIo2 of 100% and [address] Max lowry), o2 sats eventually rory to 84-88%, Dr. Max Lowry aware of low oxygen saturations. Dr. Martinez called informing of new consult. Patient received 1 unit of PRBCs with Lasix after unit of blood. Telephone consent done with primary RN, Alex THOMPSON and Solomon Miles (father). Blood transfusion vital signs placed in appropriately in chart.
[2019-09-15] MEDS ORDERED: MIDAZOLAM HCL 5MG/ML 10ML VIAL 100 ML IV PRN (18:45)
[2019-09-15] MEDS ORDERED: CENTRAL TPN FORMULA 1 BAG IV SCH ×2 (20:00)
[2019-09-15 23:01] LABS: ABG HCO3 41 mmol/L (22-26); ABG PCO2 76 mmHg (35-45); ABG PH 7.33 (7.35-7.45); ABG PO2 65 mmHg (80-105)
--- NOTE | 2019-09-15 23:24 | Diagnostic Imaging Report ---
EXAMINATION: CHEST SINGLE (PORTABLE) INDICATION: High peak pressures on ventilation, rule out pneumothorax. COMPARISON: Chest radiograph 09/15/2019 FINDINGS: LINES/TUBES:Endotracheal tube terminates 6.5 cm above the fred. Left PICC line terminates at the superior cavoatrial junction. Enteric tube enters the stomach, the tip is not visualized. LUNGS:Lung volumes are low. Decreased lung volumes on the right compared to prior study. Increasing right basilar opacity. Persistent bilateral interstitial and airspace opacities. PLEURA: Increased right-sided pleural effusion, now moderate. Trace left pleural effusion. No pneumothorax. MEDIASTINUM:The cardiomediastinal silhouette is mildly enlarged. BONES/SOFT TISSUES:No acute osseous abnormality. ABDOMEN:No free air under the diaphragm. IMPRESSION: Persistent bilateral multifocal opacities consistent with known pneumonia. Increased moderate right pleural effusion and right basilar patchy. No evidence of pneumothorax. Signed by: Dr. Anurag Braun MD on 09/15/2019 11:21 PM
--- NOTE | 2019-09-15 23:31 | NUR ---
RT informed Dr. Lowry of high peak pressures in 50s. MD ordered STAT CXR and results to be called to . Notified Dr. Lowry of CXR results and current O2 sats at 2330, no new orders. said OK to wait to prone patient until AM.
--- NOTE | 2019-09-15 23:52 | Progress Note ---
DATE: 09/15/2019 SUBJECTIVE: Intubated, sedated, could not give any history. OBJECTIVE: VITAL SIGNS: Temperature 100.0, pulse 119, respiratory rate 32, blood pressure 116/65. GENERAL: Intubated, sedated. SKIN: No rash. HEENT: Endotracheal tube in place. LUNGS: Decreased breath sounds bilaterally. HEART: Tachycardic. Normal S1 and S2. GI: Abdomen is soft, distended. Decreased bowel sounds. NEUROLOGIC: Sedated. PSYCHIATRIC: Sedated. LABORATORY DATA: Laboratory harrison, white count 5, hemoglobin 6.5, platelet count 121. Creatinine 0.5, sodium 148. ASSESSMENT AND PLAN: 1. Acute respiratory failure due to coronavirus disease-2019 pneumonia. We will continue vent support per data recovery planner. ID is following as well. The patient has completed his antibiotics Decadron. He will continue to prone as tolerated. 2. Chronic blood loss anemia with thrombocytopenia. We will transfuse today. We will also consult Hematology. 3. Mild hyponatremia with anasarca, I will consider Nephrology consult. 4. Abdominal distention. Abdominal ultrasound noted. Plans per GI. 5. Fluids, electrolytes, and nutrition. We will continue TPN. 6. Gastrointestinal and deep vein thrombosis prophylaxes. His Lovenox has been held due to thrombocytopenia. Hematology is on the case. MD ALIN Allred/ANGELA /[id number]
[2019-09-16] VITALS (25 sets, daily range): BP systolic 96–168; BP diastolic 50–84
[2019-09-16] MEDS: EYE LUBRICANT OPTH OINT 3.5GM TUBE OP SCH ×4 (00:22→17:17)
[2019-09-16] MEDS: METOPROLOL TARTRATE 25 MG TAB PO SCH ×3 (00:23→21:00)
[2019-09-16] MEDS: CHOLECALCIFEROL 400 UNIT TAB PO SCH ×3 (00:23→21:00)
[2019-09-16] MEDS ORDERED: MAGNESIUM HYDROXIDE 30 ML UDC ONE (01:14)
[2019-09-16] MEDS ORDERED: BISACODYL 10 MG SUPP PR ONE ×2 (01:14→06:30)
[2019-09-16] MEDS ORDERED: MAGNESIUM HYDROXIDE 30 ML UDC PO ONE ×2 (01:15→06:00)
[2019-09-16] MEDS: MIDAZOLAM HCL 50 MG in SODIUM CHLORIDE 0.9% 100 ML 90 ML IV PRN ×4 (01:22→19:27)
[2019-09-16] MEDS: PROPOFOL IV EMULSION 10MG/ML 100 ML IV PRN ×5 (05:00→23:21)
[2019-09-16 05:37] LABS: BASOPHILS % 0.3 % (0.0-1.0); EOSINOPHILS # (AUTO) 0.5 (0.0-0.4); EOSINOPHILS % 5.1 % (0.0-6.0); HEMOGLOBIN 8.6 g/dL (14.0-18.0); LYMPHOCYTES # (AUTO) 0.8 (1.0-3.2); LYMPHOCYTES % 7.5 % (18.0-39.1); MEAN CORPUSCULAR HEMOGLOBIN 30.9 pg (28-32); MEAN CORPUSCULAR HGB CONC 30.7 g/dL (31-35); MEAN CORPUSCULAR VOLUME 100.7 fL (81-99); MONOCYTES # (AUTO) 0.7 (0.2-0.8); MONOCYTES % 7.3 % (4.4-11.3); NEUTROPHILS # (AUTO) 7.9 (2.1-6.9); NEUTROPHILS % 78.5 % (38.7-80.0); PLATELET COUNT 145 x10e3/uL (140-360); RED BLOOD COUNT 2.78 x10e6/uL (4.3-5.7); RED CELL DISTRIBUTION WIDTH 15.3 % (11.7-14.4)
[2019-09-16 06:14] LABS: ALANINE AMINOTRANSFERASE 17 IU/L (0-55); ALBUMIN 2.9 g/dL (3.5-5.0); ALBUMIN/GLOBULIN RATIO 0.9 (0.8-2.0); ALKALINE PHOSPHATASE 49 IU/L (40-150); ANION GAP 11.8 mmol/L (8-16); BLOOD UREA NITROGEN 15 mg/dL (7-26); BUN/CREATININE RATIO 26 (6-25); CALCIUM 8.3 mg/dL (8.4-10.2); CARBON DIOXIDE 38 mmol/L (22-29); CHLORIDE 102 mmol/L (98-107); CREATININE, SERUM 0.57 mg/dL (0.72-1.25); EST GLOMERULAR FILTRATION RATE > 60 ML/MIN (60-); GLUCOSE 111 mg/dL (74-118); POTASSIUM 3.8 mmol/L (3.5-5.1); SODIUM 148 mmol/L (136-145)
[2019-09-16] MEDS: METOCLOPRAMIDE HCL 10 MG/2ML VIAL IV SCH ×3 (06:19→21:36)
[2019-09-16] MEDS: FENTANYL 2000MCG/NS 250 250 ML IV PRN ×3 (06:25→21:00)
--- NOTE | 2019-09-16 07:31 | Diagnostic Imaging Report ---
EXAMINATION: CHEST SINGLE (PORTABLE) INDICATION: High peak pressures on ventilation, rule out pneumothorax. COMPARISON: Chest radiograph 09/15/2019 FINDINGS: LINES/TUBES:Endotracheal tube terminates 6.5 cm above the fred. Left PICC line terminates at the superior cavoatrial junction. Enteric tube enters the stomach, the tip is not visualized. LUNGS:Lung volumes are low. Persistent bilateral interstitial and airspace opacities. PLEURA: Moderate right and trace left pleural effusions. No pneumothorax. MEDIASTINUM:The cardiomediastinal silhouette is mildly enlarged. BONES/SOFT TISSUES:No acute osseous abnormality. ABDOMEN:No free air under the diaphragm. IMPRESSION: Persistent bilateral multifocal opacities consistent with known pneumonia. Unchanged right greater than left pleural effusions. Signed by: Dr. Anurag Braun MD on 09/16/2019 7:28 AM
--- NOTE | 2019-09-16 07:54 | NUR ---
Patient does not tolerate repositioning well. Patient repositioned for insertion of suppository, O2 sats dropped. O2 sats began to increase to low 80s, then dropped again. Patient repositioned to prone position, day shift RN at bedside. Updated RN on events overnight.
[2019-09-16] MEDS: ZINC SULFATE 220 MG CAP PO SCH (08:05)
[2019-09-16] MEDS: DOCUSATE SODIUM LIQD 100 MG/10 ML UDC NG SCH ×2 (08:06→16:28)
[2019-09-16] MEDS: PANTOPRAZOLE 40 MG 10ML VIAL IV SCH (08:22)
[2019-09-16] MEDS: IRON SUCROSE 100 MG in SODIUM CHLORIDE 0.9% 100 ML 100 ML IV SCH (08:23)
[2019-09-16] MEDS: ROCURONIUM BROMIDE 250 MG in SODIUM CHLORIDE 0.9% 250ML 225 ML IV PRN ×5 (09:00→20:04)
[2019-09-16 09:11] LABS: ABG PCO2 72 mmHg (35-45); ABG PH 7.35 (7.35-7.45)
[2019-09-16 09:12] LABS: ABG HCO3 39 mmol/L (22-26); ABG PO2 45 mmHg (80-105); ABG TCO2 41
--- NOTE | 2019-09-16 09:14 | Progress Note ---
DATE: Pulmonary Critical Care Progress Note SUBJECTIVE: The patient is afebrile. He was just placed in the prone position early this morning. He still has ileus and has apparently been receiving some suppositories and enemas. PHYSICAL EXAMINATION: VITAL SIGNS: The blood pressure is 123/68, saturation is 82%, and the pulse is 127. The patient is afebrile. HEENT: Shows no facial swelling or erythema. There is an oral endotracheal tube in place. There is a PICC line in place. There is also a radial arterial line. LYMPHATIC: Shows no submandibular, cervical, or supraclavicular adenopathy. CARDIAC: Reveals regular rate and rhythm with normal S1 and S2. LUNGS: Auscultation of lungs reveals crackles at the bases. There is no wheezing. ABDOMEN: Soft and nontender. There is no rebound or guarding. EXTREMITIES: Shows no leg edema or calf tenderness. There is no cyanosis or clubbing. SKIN: Shows no rashes. NEUROLOGICAL: Shows no focal abnormalities. LABORATORY DATA: White blood cell count is 10.1 and hemoglobin is 8.6. The platelet count is 145. BUN to creatinine ratio is normal. The other electrolytes are within normal limits. Albumin is 2.9. RADIOGRAPHIC DATA: Chest x-ray shows bilateral infiltrates. There are small pleural effusions. IMPRESSION: 1. Acute respiratory failure. 2. Ileus. 3. Obesity. 4. Anemia secondary to chronic blood loss. 5. Thrombocytopenia. PLAN: 1. Continue to ventilate the patient in the prone position. 2. Continue TPN. 3. Continue to monitor blood counts. 4. Lovenox. 5. Await further input from Hematology. Greater than 35 minutes in direct critical care time. Maximilian Lowry MD [facility] /[id number]
[2019-09-16] MEDS: CYANOCOBALAMIN INJ 1,000 MCG/ML VIAL IM SCH (09:49)
[2019-09-16] MEDS ORDERED: PROPOFOL IV EMULSION 10MG/ML 100ML BTL ONE (10:53)
[2019-09-16] MEDS ORDERED: FUROSEMIDE INJ 10 MG/ML 4 ML VIAL IV ONE (12:15)
--- NOTE | 2019-09-16 12:23 | NUR ---
Nutrition Intervention Note RD Recommendation(s) for Physician: - Recommend TPN of 2040 ml/day at 85 ml/hr of Dextrose 10%/500 ml (204 g/day), AA10%/500 ml (102 gm/day), NaCl 20 mEq/L, KCl 40 mEq/L, KPhos 12 mmol/L, Ca Gluconate 4.6 mEq/L, Mg Sulfate 10 mEq/L. Add MVI, trace elements, and thiamine. Provides 1102 kcal, 102 g protein. Remaining kcal provided by propofol. - Recommend monitoring BMP with Mg and Phos daily, replace low lytes as needed. - Propofol providing an additional 517 lipid kcal/day. - Recommend change diet order to NPO for now. - As GI status allows, recommend trickle feeds of Vital HP at 10 ml/hr. Advance as tolerated to goal rate of 50 ml/hr (provides 1200 kcal and 105 gm protein). Water flushes per MD. Plan of Care: RD following, TPN and TF rec's, monitor adequacy and tolerance Nutrition reason for involvement: follow up RD Assessment 09/15: Follow up. Pt remains intubated, sedated on Propofol at 19.6 ml/hr, and paralyzed. Pt continues on TPN at 42 ml/hr, not meeting needs. Pt continues with persistent ileus and is receiving enemas and suppositories. Pt requiring daily proning 2/2 respiratory status. TF order remains, recommend NPO for now. TPN goal rec's provided, continues at 42 ml/hr. Chart reviewed. Will continue to monitor. 09/11: Follow up. Chart reviewed. Pt remains intubated and sedated. Pt is receiving 30 mL/hr of propofol per documentation which provides 792 lipid kcal. Tube feeding has been held due to abdominal distention and pt was started on TPN @ 42 mL/hr today. MD note indicates pt has an ileus. Recommendations provided. Will continue to monitor. 09/07: Follow up. Chart reviewed. Pt remains intubated and sedated. Pt is receiving 23.6 mL/hr of propofol per documentation which provides 623 lipid kcal. TF was at 20 mL/hr last night per chart. Per MD note, pts abdomen is distended and has not had a BM. Will continue to monitor. 09/04: Follow up. Pt remains intubated and sedated. Pt is receiving 9 mL/hr of propofol per documentation, which provides 238 lipid kcal. TF was at 20 mL/hr per chart yesterday. No additional administration rate is available. Will continue to monitor. 09/02: Follow up. Pt remains intubated, paralyzed, and sedated on Propofol and Versed. Pt requiring proning. TF rate at 10 ml/hr per TF documentation yesterday- inadequate EN currently, no additional EN administration available per chart. Recommend continuing EN while pt is proned by placing them in reverse Trendelenburg position. If unable to advance TF to goal rate, recommend considering PN. Chart reviewed. Will continue to monitor. Initial encounter with patient. Pt is sedated and orally intubated. Pt was not able to provide a nutrition Hx at the time of visit. Unable to observe oral cavity or perform a nutrition focused physical exam. Jevity 1.2 infusing at 20ml hr with a goal of 50ml/hr. Propofol provides 1.1kcal/ml EN provides 576 kcals, 26.64g of protein, and 387.36ml of free H2O Principal Problems/Diagnoses: CoVID 19 pneumonia PMH:No significant medical Hx, overweight/obesity GI: LBM 08/29, distended abdomen; + ileus Skin: Intact Labs: 09/15: Na 148, K 3.8, Cl 102, CO2 38, BUN 15, Cr 0.57, Gluc 111 09/11: Na 148, BUN 18, Cr 0.51, Glu 120, Ca 8.0 09/07: Na 144, K 3.8, BUN 13, Cr 0.52, Glu 92, Ca 7.8 09/04: Na 141, K 4.0, BUN 21, Cr 0.63, Glu 122 09/02: Na 139, K 4.2, BUN 19, Cr 0.61, Gluc 101 Meds: protonix, vitamin D, vitamin B12, IV Fe, colace, zinc sulfate, reglan IVF/Drips: Propofol at 19.6 ml/hr (517 lipid kcal/day), versed drip, rocuronium drip Ht: 67 in. Wt: 254 lb (09/15)- questionable wt gain, 218 lbs (09/11/19) 219 lbs (08/28) 220 lbs (09/04) 215.31lb (09/02), 200.44lbs (08/29) BMI: 31.4kg/m2 (weight used- 200 lbs) IBW: 148 lbs Malnutrition Evaluation (08/30/2019) Unable to assess due to current isolation precautions. Will re-evaluate at follow-up as appropriate. Nutrition Prescription (Diet Order): TPN @ 42 mL/hr Jevity 1.2 @ 50 mL/hr TF is off due to abdominal distention/ileus Estimated Nutritional Needs: 7160-6014 calories/day (22-25 kcal/kg IBW) 101-135 g protein/day (1.5-2 g pro/kg IBW) Diet Adequacy: Not meeting calorie needs, Not meeting protein needs Diet Education Needs Assessment: Diet education not indicated. Nutrition Care Level: high Nutrition Diagnosis: Inadequate energy and protein intake related to intubation as evidenced by requiring alternative means of nutrition. Goal: Patient will meet 75-100% of estimated needs by follow up Progress: not progressing Interventions: Composition, Rate, Route Monitoring/Evaluation: Total energy intake, Total protein intake, Formula/Solution, Prescription medication, Weight change Signed: Mary Rodney RD, LD, CNSC
--- NOTE | 2019-09-16 17:33 | NUR ---
Patient urgently proned this morning during shift change due to drop in O2 saturations. Saturations were in 70's and slowly increased once in prone position. Dr. Max Lowry and Dr. Aparicio aware of worsening abdominal distension.
--- NOTE | 2019-09-16 20:22 | Progress Note ---
DATE: SUBJECTIVE: Mr. Miles remains in intensive care unit. OBJECTIVE: VITAL SIGNS: Afebrile. HEENT: He is not icteric. NECK: Supple. CHEST: Crackles. Concerned about failure, but could not do a CAT scan. IMPRESSION: Respiratory failure, obesity, concerned about ileus, anemia. PLAN: He is off antibiotic. Continue supportive care. We will follow. MD MAYURI Taylor/[facility] /[id number]
[2019-09-16] MEDS: CENTRAL TPN FORMULA 1 BAG IV SCH (21:00)
[2019-09-16] MEDS ORDERED: DEXMEDETOMIDINE HCL 200 MCG in SODIUM CHLORIDE 0.9% 50ML 48 ML IV PRN (23:15)
--- NOTE | 2019-09-16 23:33 | Progress Note ---
DATE: 09/16/2019 SUBJECTIVE: Sedated, cannot give any history. OBJECTIVE: VITAL SIGNS: Temperature 97.9, pulse 110, respiratory rate 31, and blood pressure 109/64. GENERAL: Intubated. SKIN: No rash. HEENT: Endotracheal tube in place. LUNGS: Decreased breath sounds. HEART: Tachycardic. Normal S1 and S2. GI: Abdomen distended. NEUROLOGIC: Sedated. PSYCHIATRIC: Sedated. LABORATORY DATA: Laboratory harrison, white count 10, hemoglobin 8.6, and platelet count 145. Creatinine 0.6 and sodium 148. ASSESSMENT AND PLAN: 1. Acute respiratory failure due to COVID-19 pneumonia. The patient has completed IV antibiotics and Decadron. We will continue vent support. Vent support per kidney puller. ID is following as well. We will continue to prone him as tolerated. 2. Chronic blood loss anemia, status post packed red blood cell. His hemoglobin responded appropriately. His platelet count is a little better today. 3. Abdominal distention, per GI. 4. Fluid, electrolytes, and nutrition. We will continue TPN. 5. Gastrointestinal and deep venous thrombosis prophylaxis. His Lovenox has been discontinued by Hematology due to thrombocytopenia. MD ALIN Allred/ANGELA /[id number]
[2019-09-17] VITALS (36 sets, daily range): BP systolic 95–242; BP diastolic 53–118
[2019-09-17] MEDS: EYE LUBRICANT OPTH OINT 3.5GM TUBE OP SCH ×4 (00:28→17:04)
[2019-09-17] MEDS: ROCURONIUM BROMIDE 250 MG in SODIUM CHLORIDE 0.9% 250ML 225 ML IV PRN ×3 (00:40→20:31)
--- NOTE | 2019-09-17 01:23 | Progress Note ---
DATE: 09/16/2019 Cardiology Progress Note SUBJECTIVE: Remains intubated, sedated. In prone position today. OBJECTIVE: VITAL SIGNS: Temperature 98.4, heart rate 110, sinus tachycardia on telemetry, blood pressure 115/69, respiratory rate 32, O2 saturation 98%. BMI 39. GENERAL: Intubated and sedated. Prone position. NECK: Supple. CHEST: Rales and decreased breath sounds. CARDIOVASCULAR: Regular rate and rhythm. Normal S1, S2. Distant heart sounds. ABDOMEN: Deferred. On exam, given prone position. EXTREMITIES: With trace edema. Euthermic four extremities. CARDIOVASCULAR MEDICATIONS: Reviewed. Lisinopril 40 mg daily, metoprolol tartrate 12.5 mg q.12 hours, hydralazine p.r.n., iron being administered. STUDIES: Reviewed. Sodium 148, potassium 3.8, chloride 102, bicarbonate 38, BUN 15, creatinine 0.5, glucose 111. White blood cells 10, hemoglobin 8.6, platelets 145. INR 1.1. AST 18, ALT 17, PTT 41. ASSESSMENT AND PLAN: A 44-year-ol man with COVID-19 infection, community-acquired pneumonia, acute respiratory failure requiring prolonged ventilatory support, hypertension, morbid obesity, anemia requiring therapy. Recommend continue current cardiovascular medications. Blood pressure goal today. On telemetry, in sinus tachycardia, iron supplementation as needed. Monitor H and H and for signs of gross bleeding. GI consult, has abdominal distention intermittently being evaluated by GI. John Romero MD [facility]/ANGELA /[id number]
[2019-09-17] MEDS: MIDAZOLAM HCL 50 MG in SODIUM CHLORIDE 0.9% 100 ML 90 ML IV PRN ×2 (03:14→20:31)
[2019-09-17] MEDS: PROPOFOL IV EMULSION 10MG/ML 100 ML IV PRN (04:26)
[2019-09-17] MEDS: METOCLOPRAMIDE HCL 10 MG/2ML VIAL IV SCH ×3 (05:26→21:40)
[2019-09-17 06:03] LABS: BASOPHILS % 0.2 % (0.0-1.0); EOSINOPHILS # (AUTO) 0.4 (0.0-0.4); EOSINOPHILS % 4.8 % (0.0-6.0); HEMATOCRIT 28.3 % (38.2-49.6); HEMOGLOBIN 8.6 g/dL (14.0-18.0); LYMPHOCYTES # (AUTO) 0.5 (1.0-3.2); LYMPHOCYTES % 5.6 % (18.0-39.1); MEAN CORPUSCULAR HGB CONC 30.4 g/dL (31-35); MEAN CORPUSCULAR VOLUME 102.2 fL (81-99); MONOCYTES # (AUTO) 0.7 (0.2-0.8); NEUTROPHILS # (AUTO) 6.9 (2.1-6.9); NEUTROPHILS % 80.1 % (38.7-80.0); PLATELET COUNT 142 x10e3/uL (140-360); RED BLOOD COUNT 2.77 x10e6/uL (4.3-5.7); RED CELL DISTRIBUTION WIDTH 15.4 % (11.7-14.4)
[2019-09-17 06:12] LABS: INR 1.07; PROTHROMBIN TIME 14.5 seconds (11.9-14.5)
[2019-09-17 06:13] LABS: PARTIAL THROMBOPLASTIN TIME 37.7 seconds (23.8-35.5)
[2019-09-17 06:22] LABS: ALANINE AMINOTRANSFERASE 16 IU/L (0-55); ALBUMIN 2.5 g/dL (3.5-5.0); ALBUMIN/GLOBULIN RATIO 0.7 (0.8-2.0); ALKALINE PHOSPHATASE 50 IU/L (40-150); ANION GAP 11.6 mmol/L (8-16); BLOOD UREA NITROGEN 15 mg/dL (7-26); BUN/CREATININE RATIO 30 (6-25); CALCIUM 8.3 mg/dL (8.4-10.2); CARBON DIOXIDE 38 mmol/L (22-29); CHLORIDE 103 mmol/L (98-107); EST GLOMERULAR FILTRATION RATE > 60 ML/MIN (60-); GLUCOSE 110 mg/dL (74-118); POTASSIUM 3.6 mmol/L (3.5-5.1); SODIUM 149 mmol/L (136-145)
[2019-09-17 07:16] LABS: AMYLASE 28 U/L (25-125); LIPASE 28 U/L (8-78)
[2019-09-17 08:13] LABS: ABG HCO3 42 mmol/L (22-26); ABG PCO2 78 mmHg (35-45); ABG PH 7.34 (7.35-7.45); ABG PO2 105 mmHg (80-105)
[2019-09-17 08:14] LABS: ABG TCO2 44
[2019-09-17] MEDS: CHOLECALCIFEROL 400 UNIT TAB PO SCH ×2 (08:32→21:40)
[2019-09-17] MEDS: PANTOPRAZOLE 40 MG 10ML VIAL IV SCH (08:32)
[2019-09-17] MEDS: CYANOCOBALAMIN INJ 1,000 MCG/ML VIAL IM SCH (08:32)
[2019-09-17] MEDS: IRON SUCROSE 100 MG in SODIUM CHLORIDE 0.9% 100 ML 100 ML IV SCH (08:32)
[2019-09-17] MEDS: DOCUSATE SODIUM LIQD 100 MG/10 ML UDC NG SCH ×2 (08:32→17:04)
[2019-09-17] MEDS: METOPROLOL TARTRATE 25 MG TAB PO SCH ×2 (08:33→21:40)
[2019-09-17] MEDS: ZINC SULFATE 220 MG CAP PO SCH (08:33)
--- NOTE | 2019-09-17 10:21 | Progress Note ---
DATE: 09/17/2019 Cardiology Progress Note SUBJECTIVE: Intubated, sedated, remains in prone position. OBJECTIVE: VITAL SIGNS: Temperature 99.4, heart rate 108 on telemetry, in sinus tachycardia, respiratory rate 32, blood pressure 126/65, and O2 saturation 92% on vent support. GENERAL: Intubated, sedated. HEENT: Dry mucosa. Lines in place. NECK: Supple. CHEST: Decreased breath sounds and rales in the bases. CARDIOVASCULAR: Regular rate and rhythm. Normal S1 and S2. ABDOMEN: Deferred, as the patient in prone position. EXTREMITIES: Trace edema. Warm extremities. NEURO: Sedated. CARDIOVASCULAR MEDICATIONS: Reviewed. Metoprolol tartrate 12.5 mg q.12 hours and hydralazine 10 mg q.4 hours IV p.r.n. STUDIES: Reviewed. White blood cells 8.6, hemoglobin 8.6, and platelets 142. INR 1, PTT 37, and PT 14.5. Sodium 149, potassium 3.6, chloride 103, bicarbonate 38, BUN 15, creatinine 0.5, glucose 110, and calcium 8.3. AST 16, ALT 16, and alkaline phosphatase 50. Total protein 6 and albumin 2.5. Heparin-induced antibody pending. Chest x-ray with persistent bilateral multifocal opacities and unchanged right greater than left pleural effusions. ASSESSMENT AND PLAN: A 44-year-old man with COVID-19 infection, community-acquired pneumonia, acute respiratory failure with prolonged ventilatory support, history of hypertension, morbid obesity and anemia, heparin-induced thrombocytopenia antibody pending, abdominal distention, undergoing workup by GI. RECOMMEND: Continue current cardiovascular medications including metoprolol, Lasix, and lisinopril currently on hold, so heparin. Await heparin-induced thrombocytopenia antibody results. GI evaluating. MD OPAL Del Valle/ANGELA /[id number]
--- NOTE | 2019-09-17 11:02 | Diagnostic Imaging Report ---
EXAMINATION: ABDOMEN-1VIEW (KUB), CHEST SINGLE (PORTABLE) INDICATION: Abdominal distention, pneumonia COMPARISON: Chest radiograph 09/16/2019 abdominal ultrasound 09/15/2019 FINDINGS: LINES/TUBES:Endotracheal tube terminates in the midthoracic trachea. Enteric tube projects below the diaphragm with tip and side-port in the stomach. LUNGS:The lung volumes are low. Interval increase in bilateral airspace opacities. PLEURA:No pleural effusion or pneumothorax. MEDIASTINUM:The cardiomediastinal silhouette appears normal in size and shape. BONES/SOFT TISSUES:No acute osseous injury. ABDOMEN:Nonobstructive bowel gas pattern. No free air. IMPRESSION: Interval increase in bilateral airspace opacities consistent with known pneumonia. NG tube terminates in the stomach. Nonobstructive bowel gas pattern. No free air. Signed by: Farrah Pierson MD on 09/17/2019 10:58 AM
--- NOTE | 2019-09-17 13:57 | NUR ---
this is infectious disease progress note The patient has been hospital for 24 days Remains in intensive care unit The patient is intubated , sedated, remains in prone position. events noted chart noted medication reviewed lab data reviewed OBJECTIVE: VITAL SIGNS: Temperature 99.4, heart rate 108 on telemetry, in sinus tachycardia, respiratory rate 32, blood pressure 126/65, and O2 saturation 92% on vent support. GENERAL: Intubated, sedated. on the ventilator HEENT: Dry mucosa. Lines in place. normocephalic NECK: Supple. CHEST: Decreased breath sounds and rales in the bases. CARDIOVASCULAR: Regular rate and rhythm. Normal S1 and S2. ABDOMEN: Deferred, as the patient in prone position. EXTREMITIES: Trace edema. Warm extremities. NEURO: Sedated. CARDIOVASCULAR MEDICATIONS: Reviewed. Metoprolol tartrate 12.5 mg q.12 hours and hydralazine 10 mg q.4 hours IV p.r.n. STUDIES: Reviewed. White blood cells 8.6, hemoglobin 8.6, and platelets 142. INR 1, PTT 37, and PT 14.5. Sodium 149, potassium 3.6, chloride 103, bicarbonate 38, BUN 15, creatinine 0.5, glucose 110, and calcium 8.3. AST 16, ALT 16, and alkaline phosphatase 50. Total protein 6 and albumin 2.5. Heparin-induced antibody pending. Chest x-ray with persistent bilateral multifocal opacities and unchanged right greater than left pleural effusions. ASSESSMENT AND PLAN: respiratory failure COVID-19 infection, community-acquired pneumonia, acute respiratory failure with prolonged ventilatory support, history of hypertension, morbid obesity and anemia, heparin-induced thrombocytopenia antibody pending, abdominal distention, undergoing workup by GI.Patient seemed to be stable
--- NOTE | 2019-09-17 15:17 | Progress Note ---
DATE: Pulmonary Critical Care Progress Note SUBJECTIVE: The patient remains in the prone position on a ventilator. He is on a PRVC mode of ventilation at rate of 32. His FiO2 is set at 80%. His PEEP is set at 16. His tidal volume is set at 360. The patient is receiving TPN. The patient is certainly on fentanyl, Versed, and rocuronium. PHYSICAL EXAMINATION: VITAL SIGNS: The blood pressure is 107/53 and saturation is now 92%. HEENT: Shows no facial swelling or erythema. There is a nasogastric tube in place. There is an oral endotracheal tube. CARDIAC: Reveals regular rate and rhythm with normal S1 and S2. LUNGS: Auscultation of lungs reveals crackles at the bases. There is no wheezing. ABDOMEN: Soft. There is some distention. There is no rebound or guarding. EXTREMITIES: Shows no leg edema or calf tenderness. There is no cyanosis or clubbing. LABORATORY DATA: White blood cell count is 8.6 and hemoglobin is 8.6. Platelet count is 142. BUN to creatinine ratio is normal. Sodium is 149. Other electrolytes are within normal limits. RADIOGRAPHIC DATA: Chest x-ray shows continued bilateral infiltrates. IMPRESSION: 1. Acute respiratory failure. 2. Viral pneumonia and COVID-19 infection. 3. Small bowel ileus. 4. Obesity. 5. Anemia. 6. Thrombocytopenia. PLAN: 1. Continue current ventilation and monitor ABGs. 2. Continue TPN. 3. Continue Lovenox. 4. Continue to monitor blood counts. 5. Low-dose Lasix. 6. Awaiting further input from GI regarding ileus. Greater than 35 minutes in direct critical care time. Maximilian Lowry MD [facility]/MODL /[id number]
[2019-09-17] MEDS ORDERED: FUROSEMIDE INJ 10 MG/ML 4 ML VIAL IV ONE (17:00)
[2019-09-17] MEDS ORDERED: FUROSEMIDE INJ 10 MG/ML 2 ML VIAL IV ONE (17:00)
[2019-09-17] MEDS: CENTRAL TPN FORMULA 1 BAG IV SCH (20:00)
--- NOTE | 2019-09-17 20:15 | NUR ---
THIS RN TOOK OVER CARE FOR PATIENT AT 1900. PATIENT IN SUPINE POSITION, HR 120'S-130 BPM, SPO2 80% ON MECHANICAL VENTILATION. PATIENT NOT RECOVERING OVER TIME. DR. BERGERON NOTIFIED OF VITAL SIGNS AND PATIENTS CURRENT POSITION. DR. BERGERON IN AGREEMENT THAT PATIENT SHOULD BE REPOSITIONED TO PRONE POSITION. RT, DR. BERGERON, AND THREE NURSES PRESENT FOR PRONING. SPO2 IMPROVED TO 95% IN PRONE POSITION. HR IMPROVED W/ METOPROLOL TARTRATE 25MG ADMINISTRATION.
[2019-09-17] MEDS: FENTANYL 2000MCG/NS 250 250 ML IV PRN ×3 (20:30→22:02)
--- NOTE | 2019-09-17 23:29 | Progress Note ---
DATE: 09/17/2019 SUBJECTIVE: Intubated, sedated. Cannot give any history. OBJECTIVE: VITAL SIGNS: Temperature 98.4, pulse 118, respiratory rate 31, blood pressure 116/64. GENERAL: Intubated, sedated. HEENT: Endotracheal tube in place. SKIN: No rash. LUNGS: Decreased breath sounds. HEART: Tachycardic. Normal S1, S2. GI: Abdomen is soft, distended. NEUROLOGIC: Sedated. PSYCHIATRIC: Sedated. LABORATORY DATA: White count 8.6, hemoglobin 8.6, platelet count 142, HIT antibody level was normal. Creatinine 0.5. ASSESSMENT AND PLAN: 1. Acute respiratory failure due to COVID-19 pneumonia. The patient has completed IV antibiotic and Decadron. We will continue vent support per assistant finance director. Infectious Disease following as well. We will continue to prone him as much as possible. 2. Thrombocytopenia. This has resolved. His HIT antibody is negative. Hopefully, we can start him back on Lovenox. 3. Chronic blood loss anemia status post 2 units total so far. We will continue to monitor. 4. Abdominal distention. KUB was benign. Plan per GI. 5. Fluid, electrolytes, and nutrition. We will continue TPN. 6. Gastrointestinal and deep venous thrombosis prophylaxis. Hopefully, we can restart his Lovenox per tax form preparer. MD ALIN Allred/ANGELA /[id number]
[2019-09-18] VITALS (27 sets, daily range): BP systolic 88–164; BP diastolic 52–85
[2019-09-18] MEDS: EYE LUBRICANT OPTH OINT 3.5GM TUBE OP SCH ×4 (00:20→17:51)
[2019-09-18] MEDS: FENTANYL 2000MCG/NS 250 250 ML IV PRN ×3 (00:21→20:37)
[2019-09-18] MEDS: MIDAZOLAM HCL 50 MG in SODIUM CHLORIDE 0.9% 100 ML 90 ML IV PRN ×3 (01:28→17:52)
[2019-09-18] MEDS: ROCURONIUM BROMIDE 250 MG in SODIUM CHLORIDE 0.9% 250ML 225 ML IV PRN ×3 (01:43→22:20)
[2019-09-18] MEDS: PROPOFOL IV EMULSION 10MG/ML 100 ML IV PRN ×4 (02:49→22:20)
[2019-09-18 03:27] LABS: ABG HCO3 40 mmol/L (22-26); ABG PCO2 88 mmHg (35-45); ABG PH 7.27 (7.35-7.45); ABG PO2 90 mmHg (80-105); ABG TCO2 43
[2019-09-18] MEDS: METOCLOPRAMIDE HCL 10 MG/2ML VIAL IV SCH ×3 (05:28→21:27)
[2019-09-18 05:32] LABS: BASOPHILS % 0.2 % (0.0-1.0); EOSINOPHILS # (AUTO) 0.4 (0.0-0.4); EOSINOPHILS % 6.1 % (0.0-6.0); HEMATOCRIT 24.9 % (38.2-49.6); HEMOGLOBIN 7.6 g/dL (14.0-18.0); LYMPHOCYTES # (AUTO) 0.5 (1.0-3.2); LYMPHOCYTES % 7.7 % (18.0-39.1); MEAN CORPUSCULAR HEMOGLOBIN 30.5 pg (28-32); MEAN CORPUSCULAR HGB CONC 30.5 g/dL (31-35); MONOCYTES # (AUTO) 0.6 (0.2-0.8); MONOCYTES % 9.4 % (4.4-11.3); NEUTROPHILS # (AUTO) 4.9 (2.1-6.9); NEUTROPHILS % 75.7 % (38.7-80.0); PLATELET COUNT 166 x10e3/uL (140-360); RED BLOOD COUNT 2.49 x10e6/uL (4.3-5.7); RED CELL DISTRIBUTION WIDTH 14.9 % (11.7-14.4)
[2019-09-18 08:27] LABS: MAGNESIUM 2.1 MG/DL (1.3-2.1); PHOSPHORUS 2.8 MG/DL (2.3-4.7)
[2019-09-18] MEDS ORDERED: PROPOFOL IV EMULSION 10MG/ML 100ML BTL ONE (08:48)
[2019-09-18] MEDS: DOCUSATE SODIUM LIQD 100 MG/10 ML UDC NG SCH ×2 (08:50→17:00)
[2019-09-18] MEDS: PANTOPRAZOLE 40 MG 10ML VIAL IV SCH (08:50)
[2019-09-18] MEDS: METOPROLOL TARTRATE 25 MG TAB PO SCH ×2 (08:51→20:38)
[2019-09-18] MEDS: CHOLECALCIFEROL 400 UNIT TAB PO SCH ×2 (08:51→20:38)
[2019-09-18] MEDS: ZINC SULFATE 220 MG CAP PO SCH (08:51)
[2019-09-18] MEDS: CYANOCOBALAMIN INJ 1,000 MCG/ML VIAL IM SCH (08:54)
[2019-09-18 09:07] LABS: ANION GAP 9.6 mmol/L (8-16); BLOOD UREA NITROGEN 14 mg/dL (7-26); BUN/CREATININE RATIO 26 (6-25); CALCIUM 8.1 mg/dL (8.4-10.2); CARBON DIOXIDE 37 mmol/L (22-29); CHLORIDE 102 mmol/L (98-107); CREATININE, SERUM 0.54 mg/dL (0.72-1.25); EST GLOMERULAR FILTRATION RATE > 60 ML/MIN (60-); GLUCOSE 88 mg/dL (74-118); POTASSIUM 3.6 mmol/L (3.5-5.1); SODIUM 145 mmol/L (136-145)
[2019-09-18] MEDS ORDERED: POTASSIUM CHLORIDE 20MEQ/15ML UDC NG NR (09:30)
--- NOTE | 2019-09-18 11:56 | Progress Note ---
DATE: 09/18/2019 Cardiology Progress Note SUBJECTIVE: Remains in prone position, intubated, sedated. OBJECTIVE: VITAL SIGNS: Temperature 97.5, heart rate 100, telemetry sinus tachycardia, blood pressure 102/58, respiratory rate 32, O2 saturation 100% on FiO2 100% and PEEP of 16. GENERAL: Intubated, sedated, prone position. HEENT: Tube in place. Dry mucosa. NECK: Supple. CHEST: With rales and decreased breath sounds. CARDIOVASCULAR: Regular rate and rhythm. Normal S1 and S2. ABDOMEN: Deferred. Bowel sounds positive. EXTREMITIES: Normothermic. Edema. CARDIOVASCULAR MEDICATIONS: Reviewed. Metoprolol tartrate 12.5 mg q.12 hours and hydralazine as needed. STUDIES: Reviewed. Creatinine 0.5 and glucose 88. White blood cell 6.5, hemoglobin 7.6, and platelets 166. ASSESSMENT AND PLAN: A 44-year-old man presents with COVID-19 infection, community-acquired pneumonia, acute respiratory failure, prolonged intubation, history of hypertension, recurrent anemia requiring transfusions. RECOMMEND: Continue supportive care. Continue antihypertensives. Vent optimization per Pulmonary expertise. MD OPAL Del Valle/ANGELA /[id number]
[2019-09-18 12:13] LABS: ABG PH 7.36 (7.35-7.45)
[2019-09-18 12:14] LABS: ABG HCO3 39 mmol/L (22-26); ABG PCO2 69 mmHg (35-45); ABG PO2 139 mmHg (80-105); ABG TCO2 41
--- NOTE | 2019-09-18 14:43 | Progress Note ---
DATE: SUBJECTIVE: The patient is still on a mechanical ventilator. He is in the prone position. His FiO2 is decreased to 90%, but he still requires a PRVC with a rate of 32 and a PEEP of 16. His tidal volume is set at 360. PHYSICAL EXAMINATION: VITAL SIGNS: The blood pressure is 131/65. Saturation is in the low 90s on the above settings. HEENT: Shows no facial swelling or erythema. CARDIAC: Reveals regular rate and rhythm with normal S1 and S2. LUNGS: Auscultation of lungs reveals crackles at the bases. There is no wheezing. ABDOMEN: Soft and nontender. There is no rebound or guarding. EXTREMITIES: Shows no leg edema or calf tenderness. There is no cyanosis or clubbing. SKIN: Shows no rashes. NEUROLOGICAL: Shows no focal abnormalities. LABORATORY DATA: White blood cell count is 6.5 and the hemoglobin is 7.6. The platelet count is 166. The BUN to creatinine ratio is normal. Other electrolytes are within normal limits. RADIOGRAPHIC DATA: Chest x-ray shows bilateral airspace disease. IMPRESSION: 1. Acute respiratory failure. 2. Viral pneumonia and COVID-19 infection. 3. Small bowel ileus. 4. Obesity. 5. Thrombocytopenia. 6. Anemia. PLAN: 1. Continue current ventilator settings. 2. Place in prone position for as long as possible. 3. IV Lasix. 4. Continue Lovenox. 5. Continue TPN. 6. Continue to monitor blood counts. Greater than 35 minutes in direct critical care time. Maximilian Lowry MD [facility]/MODL /[id number]
[2019-09-18] MEDS ORDERED: FUROSEMIDE INJ 10 MG/ML 2 ML VIAL IV ONE (17:30)
--- NOTE | 2019-09-18 18:45 | Progress Note ---
DATE: SUBJECTIVE: Mr. Miles remains in intensive care unit. The patient is day #25 of hospitalization. He is on a ventilator, prone position, FiO2 90%, on PRVC of 32, PEEP of 16. PHYSICAL EXAMINATION: HEENT: Normocephalic. NECK: Supple. CHEST: Crackles. HEART: S1 and S2. ABDOMEN: Soft. IMPRESSION AND PLAN: 1. Respiratory failure, viral pneumonia, COVID-19, ileus, seems to be better today. Had a bowel movement. I am going to start to feed him slowly. We will discuss with Critical Care. 2. Concerned about pneumonia. I am going to give him 5 days of Zosyn for aspiration pneumonia in excess. MD MAYURI Taylor/MODL /[id number]
[2019-09-18] MEDS ORDERED: CENTRAL TPN FORMULA 1 BAG IV SCH (20:00)
[2019-09-18] MEDS: ENOXAPARIN SODIUM INJ 100 MG/ML SYR SC SCH (20:38)
[2019-09-18] MEDS: FUROSEMIDE INJ 10 MG/ML 4 ML VIAL IV SCH (20:53)
[2019-09-19] VITALS (25 sets, daily range): BP systolic 95–181; BP diastolic 56–84
[2019-09-19] MEDS: EYE LUBRICANT OPTH OINT 3.5GM TUBE OP SCH ×5 (00:15→23:25)
--- NOTE | 2019-09-19 01:17 | Progress Note ---
DATE: 09/18/2019 SUBJECTIVE: Sedated. Could not give any history. OBJECTIVE: VITAL SIGNS: Temperature 96.6, pulse 117, respiratory rate 32, blood pressure 104/57. GENERAL: Sedated. SKIN: No rash. HEENT: Endotracheal tube in place. LUNGS: Decreased breath sounds. HEART: Tachycardic. Normal S1, S2. GI: Abdomen is soft, not distended. NEUROLOGIC: Sedated. PSYCHIATRIC: Sedated. LABORATORY DATA: Dsouza, hemoglobin 7.6, platelet count 166, creatinine 0.5. ASSESSMENT AND PLAN: 1. Acute respiratory failure due to coronavirus disease-19 pneumonia. The patient has completed his antibiotics and Decadron. We will continue vent support per caser in. We will continue to prone him as much as possible. 2. Chronic blood loss anemia, status post 2 units so for, currently stable. 3. Abdominal distention, a little better. Currently has a rectal tube with diarrhea. Continue per GI. 4. Fluid, electrolytes, and nutrition. We will continue TPN. 5. Gastrointestinal and deep vein thrombosis prophylaxis. We will start full dose Lovenox per Hematology. MD ALIN Allred/REYESL /[id number]
[2019-09-19] MEDS: FENTANYL 2000MCG/NS 250 250 ML IV PRN ×3 (03:29→18:00)
[2019-09-19] MEDS: MIDAZOLAM HCL 50 MG in SODIUM CHLORIDE 0.9% 100 ML 90 ML IV PRN ×4 (03:30→23:45)
[2019-09-19] MEDS: METOCLOPRAMIDE HCL 10 MG/2ML VIAL IV SCH ×3 (05:53→22:32)
[2019-09-19 06:33] LABS: BASOPHILS % 0.2 % (0.0-1.0); EOSINOPHILS # (AUTO) 0.2 (0.0-0.4); HEMATOCRIT 25.2 % (38.2-49.6); HEMOGLOBIN 7.5 g/dL (14.0-18.0); LYMPHOCYTES # (AUTO) 0.4 (1.0-3.2); LYMPHOCYTES % 6.6 % (18.0-39.1); MEAN CORPUSCULAR HEMOGLOBIN 29.2 pg (28-32); MEAN CORPUSCULAR HGB CONC 29.8 g/dL (31-35); MEAN CORPUSCULAR VOLUME 98.1 fL (81-99); MONOCYTES # (AUTO) 0.7 (0.2-0.8); MONOCYTES % 11.8 % (4.4-11.3); NEUTROPHILS # (AUTO) 4.6 (2.1-6.9); NEUTROPHILS % 76.4 % (38.7-80.0); PLATELET COUNT 165 x10e3/uL (140-360); RED BLOOD COUNT 2.57 x10e6/uL (4.3-5.7); RED CELL DISTRIBUTION WIDTH 15.2 % (11.7-14.4)
[2019-09-19] MEDS: ROCURONIUM BROMIDE 250 MG in SODIUM CHLORIDE 0.9% 250ML 225 ML IV PRN ×3 (08:09→17:55)
[2019-09-19] MEDS: PANTOPRAZOLE 40 MG 10ML VIAL IV SCH (08:09)
[2019-09-19] MEDS: ENOXAPARIN SODIUM INJ 100 MG/ML SYR SC SCH ×2 (08:09→22:00)
[2019-09-19] MEDS: DOCUSATE SODIUM LIQD 100 MG/10 ML UDC NG SCH ×2 (08:14→17:09)
[2019-09-19] MEDS: METOPROLOL TARTRATE 25 MG TAB PO SCH ×2 (08:22→21:00)
[2019-09-19] MEDS: FUROSEMIDE INJ 10 MG/ML 4 ML VIAL IV SCH ×2 (08:22→21:00)
[2019-09-19] MEDS: CHOLECALCIFEROL 400 UNIT TAB PO SCH ×2 (08:22→21:00)
[2019-09-19] MEDS: ZINC SULFATE 220 MG CAP PO SCH (08:22)
[2019-09-19 08:26] LABS: ALANINE AMINOTRANSFERASE 32 IU/L (0-55); ALBUMIN/GLOBULIN RATIO 0.6 (0.8-2.0); ALKALINE PHOSPHATASE 60 IU/L (40-150); ANION GAP 8.6 mmol/L (8-16); BLOOD UREA NITROGEN 13 mg/dL (7-26); BUN/CREATININE RATIO 26 (6-25); CALCIUM 7.7 mg/dL (8.4-10.2); CARBON DIOXIDE 38 mmol/L (22-29); CHLORIDE 103 mmol/L (98-107); EST GLOMERULAR FILTRATION RATE > 60 ML/MIN (60-); GLUCOSE 100 mg/dL (74-118); POTASSIUM 3.6 mmol/L (3.5-5.1); SODIUM 146 mmol/L (136-145)
[2019-09-19 08:49] LABS: MAGNESIUM 1.9 MG/DL (1.3-2.1); PHOSPHORUS 2.7 MG/DL (2.3-4.7)
[2019-09-19 09:15] LABS: ABG HCO3 41 mmol/L (22-26); ABG PCO2 73 mmHg (35-45); ABG PH 7.35 (7.35-7.45); ABG PO2 149 mmHg (80-105); ABG TCO2 43
[2019-09-19] MEDS ORDERED: POTASSIUM CHLORIDE 20MEQ/15ML UDC NG SCH (09:30)
[2019-09-19] MEDS: PROPOFOL IV EMULSION 10MG/ML 100 ML IV PRN ×2 (09:57→21:00)
[2019-09-19 10:16] LABS: PLATELET ESTIMATE ADEQUATE
[2019-09-19 10:17] LABS: HYPOCHROMASIA SLIGHT; PLATELET MORPHOLOGY COMMENT NORMAL; POLYCHROMASIA FEW
--- NOTE | 2019-09-19 11:08 | Diagnostic Imaging Report ---
EXAMINATION: CHEST SINGLE (PORTABLE) INDICATION: Respiratory failure COMPARISON: Chest radiograph 09/17/2019 FINDINGS: LINES/TUBES:Endotracheal tube terminates 7 cm above the fred. Remaining support lines and tubes unchanged. LUNGS:The lung volumes are low. Increasing bilateral airspace opacities. PLEURA:No pleural effusion or pneumothorax. MEDIASTINUM:The cardiomediastinal silhouette appears unchanged in size and shape. BONES/SOFT TISSUES:No acute osseous injury. ABDOMEN:No free air under the diaphragm. IMPRESSION: Increasing bilateral airspace opacities consistent with known pneumonia. Signed by: Farrah Pierson MD on 09/19/2019 11:05 AM
[2019-09-19] MEDS ORDERED: METOCLOPRAMIDE HCL 10 MG/2ML VIAL IV PRN (12:00)
--- NOTE | 2019-09-19 12:48 | Progress Note ---
DATE: SUBJECTIVE: The patient was in the prone position last night. He is now back in the supine position. He is on 100% FiO2 with a tidal volume of 360. His rate is set at 34 and his PEEP is set at 16. He remains on Versed, fentanyl, and vecuronium. PHYSICAL EXAMINATION: VITAL SIGNS: The patient is afebrile. The blood pressure is 180/84 and saturation is 96%. HEENT: Shows no facial swelling or erythema. There is an oral endotracheal tube. He has a PICC line in place as well as an arterial line. CARDIAC: Reveals regular rate and rhythm with normal S1 and S2. LUNGS: Auscultation of lungs reveals rhonchorous breath sounds bilaterally. There is no wheezing. ABDOMEN: Soft and nontender. There is no rebound or guarding. EXTREMITIES: There is no leg edema. LABORATORY DATA: White blood cell count is 6 and the hemoglobin is 7.5. The platelet count is 165. The BUN to creatinine ratio is normal. The other electrolytes are within normal limits. The albumin is 2.0. RADIOGRAPHIC DATA: Chest x-ray shows bilateral airspace opacities. IMPRESSION: 1. Acute respiratory failure. 2. Viral pneumonia and COVID-19 infection. 3. Small bowel ileus. 4. Obesity. 5. Thrombocytopenia. 6. Anemia. PLAN: 1. Continue current ventilator settings. 2. Continue to place in the prone position as much as possible. 3. Continue IV Lasix. 4. Continue Lovenox. 5. Advance enteral feedings and wean TPN. 6. Continue to monitor blood counts. 7. Case discussed with nursing staff, Respiratory, Infectious Disease, and Internal Medicine. Greater than 35 minutes in direct critical care time. Maximilian Lowry MD [facility]/MODL /[id number]
[2019-09-19] MEDS: CYANOCOBALAMIN INJ 1,000 MCG/ML VIAL IM SCH (13:53)
--- NOTE | 2019-09-19 15:20 | NUR ---
HEMATOLOGY/ONCOLOGY PROGRESS NOTE: HPI: Events noted, discussed with nurse. Still with dark stools. 12 point ROS unable to obtain secondary to patient intubated, sedated. PHYSICAL EXAM: Vitals: Reviewed as per EMR. PE limited due to COVID-19 contact precautions. LABORATORY: 09/19/2019 WBC 6.04 Hgb: 7.5 Hct: 25.2 Plt: 165 BUN: 26 Creatinine: 0.50 ASSESSMENT AND PLAN: Mr. Miles is a 42-year-old male with past medical history of hypertension who was admitted on 08/24/2019 due to cough and fever. Patient was found to be positive for COVID-19. Intubated due to worsening respiratory status. Patient has been treated with full-dose Lovenox since 09/08/19. Has required PRBC previously during admission. Patient now with dropping platelet count and recurrent anemia requiring PRBC transfusion. Hematology/Oncology has been consulted to assist with the management. 1. Thrombocytopenia: Unknown baseline platelet count, counts have fluctuated throughout admission. DIC panel showed no coagulopathy, elevated fibrinogen, does not appear DIC. Acute hepatitis panel negative. Abdominal US without evidence of liver cirrhosis or splenomegaly. HIT panel negative. Continue full-dose anticoagulation with Lovenox 1mg/kg subcu every 12 hours. Anti-Xa level requested and pending to ensure therapeutic level as patient is obese. RESOLVED. Monitor. 2. Anemia: Normocytic, hypochromic counts. Anemia panel appears mixed picture AOCD + RODRIGUEZ with noted low B12 level. Ferritin mildly elevated, likely as acute phase reactant. On IV iron, will limit use secondary to elevated ferritin, recheck ferritin level tomorrow AM. Reticulocyte count and LDH mildly elevated, haptoglobin elevated, does not appear hemolysis. S/P 1 unit PRBC transfused on 09/15/19. Hemoglobin trending down, will monitor closely as on anticoagulation. 3. COVID-19 PNA: In the ICU, pharmacologically sedated, paralyzed, intubated, on ventilator. On TPN. Undergoing intermittent proning. CXR with increasing opa cities consistent with PNA. S/P course of antibiotics and steroids. Pulmonary and infectious disease on board. 4. Melena?: Dark loose stools over the past few days. On Protonix IV. H/H stable. GI on board. Above plan discussed with Dr. Lona Martinez. Thank you for the consult. I will be available. Please call with questions.
--- NOTE | 2019-09-19 15:29 | NUR ---
Nutrition Intervention Note RD Recommendation(s) for Physician: - Recommend advancing tube feeding and weaning TPN when medically appropriate - As GI status allows, recommend Vital High Protein @ goal rate of 50 ml/hr (provides 1200 kcal and 105 gm protein). Remaining kcal provided by propofol. Water flushes per MD. Propofol provides an additional 354 kcal Plan of Care: RD following, monitor adequacy and tolerance Nutrition reason for involvement: follow up RD Assessment 09/18: Follow up. Chart reviewed. Pt remains intubated and sedated. Pt was started on tube feeding. Last recorded rate was 20 mL/hr this afternoon. Pt continues to receive TPN @ 42 mL/hr. Propofol rate is at 13.4 mL/hr (provides 354 kcal). Recommendations provided. Will continue to monitor 09/15: Follow up. Pt remains intubated, sedated on Propofol at 19.6 ml/hr, and paralyzed. Pt continues on TPN at 42 ml/hr, not meeting needs. Pt continues with persistent ileus and is receiving enemas and suppositories. Pt requiring daily proning 2/2 respiratory status. TF order remains, recommend NPO for now. TPN goal rec's provided, continues at 42 ml/hr. Chart reviewed. Will continue to monitor. 09/11: Follow up. Chart reviewed. Pt remains intubated and sedated. Pt is receiving 30 mL/hr of propofol per documentation which provides 792 lipid kcal. Tube feeding has been held due to abdominal distention and pt was started on TPN @ 42 mL/hr today. MD note indicates pt has an ileus. Recommendations provided. Will continue to monitor. 09/07: Follow up. Chart reviewed. Pt remains intubated and sedated. Pt is receiving 23.6 mL/hr of propofol per documentation which provides 623 lipid kcal. TF was at 20 mL/hr last night per chart. Per MD note, pts abdomen is distended and has not had a BM. Will continue to monitor. 09/04: Follow up. Pt remains intubated and sedated. Pt is receiving 9 mL/hr of propofol per documentation, which provides 238 lipid kcal. TF was at 20 mL/hr per chart yesterday. No additional administration rate is available. Will continue to monitor. 09/02: Follow up. Pt remains intubated, paralyzed, and sedated on Propofol and Versed. Pt requiring proning. TF rate at 10 ml/hr per TF documentation yesterday- inadequate EN currently, no additional EN administration available per chart. Recommend continuing EN while pt is proned by placing them in reverse Trendelenburg position. If unable to advance TF to goal rate, recommend considering PN. Chart reviewed. Will continue to monitor. 08/29: Initial encounter with patient. Pt is sedated and orally intubated. Pt was not able to provide a nutrition Hx at the time of visit. Unable to observe oral cavity or perform a nutrition focused physical exam. Jevity 1.2 infusing at 20ml hr with a goal of 50ml/hr. Propofol provides 1.1kcal/ml EN provides 576 kcals, 26.64g of protein, and 387.36ml of free H2O Principal Problems/Diagnoses: CoVID 19 pneumonia PMH:No significant medical Hx, overweight/obesity GI: LBM 09/16, distended abdomen Skin: Intact Labs: 09/18: Na 146, K 3.6, Cr 0.50, BUN 13, Glu 100, Ca 7.7, Total Bili 1.6, AST 43 09/15: Na 148, K 3.8, Cl 102, CO2 38, BUN 15, Cr 0.57, Gluc 111 09/11: Na 148, BUN 18, Cr 0.51, Glu 120, Ca 8.0 09/07: Na 144, K 3.8, BUN 13, Cr 0.52, Glu 92, Ca 7.8 09/04: Na 141, K 4.0, BUN 21, Cr 0.63, Glu 122 09/02: Na 139, K 4.2, BUN 19, Cr 0.61, Gluc 101 Meds: fentanyl, midazolam, propofol, lasix, metoprolol, vitamin D, zinc sulfate, protonix, rocuronium, reglan, vitamin B12, colace Ht: 67 in. Wt: 258 lbs (09/18) 254 lb (09/15)- questionable wt gain, 218 lbs (09/11/19) 219 lbs (08/28) 220 lbs (09/04) 215.31lb (09/02), 200.44lbs (08/29) BMI: 31.4kg/m2 (weight used- 200 lbs) IBW: 148 lbs Malnutrition Evaluation (08/30/2019) Unable to assess due to current isolation precautions. Will re-evaluate at follow-up as appropriate. Nutrition Prescription (Diet Order): TPN @ 42 mL/hr Jevity 1.2 @ 50 mL/hr TF was at 20 mL/hr this afternoon per chart Estimated Nutritional Needs: 3126-1180 calories/day (22-25 kcal/kg IBW) 101-135 g protein/day (1.5-2 g pro/kg IBW) Diet Adequacy: Not meeting calorie needs, Not meeting protein needs Diet Education Needs Assessment: Diet education not indicated. Nutrition Care Level: high Nutrition Diagnosis: Inadequate energy and protein intake related to intubation as evidenced by requiring alternative means of nutrition. Goal: Patient will meet 75-100% of estimated needs by follow up Progress: progressing Interventions: Composition, Rate, Route, Recommended modifications Monitoring/Evaluation: Total energy intake, Total protein intake, Formula/Solution, Prescription medication, Weight change Signed: Nina Reese RD, LD
--- NOTE | 2019-09-19 16:08 | NUR ---
VITAL SIGNS: The patient is afebrile. The blood pressure is 180/84 and saturation is 96%. HEENT: Shows no facial swelling or erythema. There is an oral endotracheal tube. He has a PICC line in place as well as an arterial line. CARDIAC: Reveals regular rate and rhythm with normal S1 and S2. LUNGS: Auscultation of lungs reveals rhonchorous breath sounds bilaterally. There is no wheezing. ABDOMEN: Soft and nontender. There is no rebound or guarding. EXTREMITIES: There is no leg edema. LABORATORY DATA: White blood cell count is 6 and the hemoglobin is 7.5. The platelet count is 165. The BUN to creatinine ratio is normal. The other electrolytes are within normal limits. The albumin is 2.0. [id number] cont plan
--- NOTE | 2019-09-19 19:00 | NUR ---
Saturations noted to be 81%, HR 130's. Dr Lowry made aware, orders received to prone patient. Orders carried out, Saturations noted to be 100%.
--- NOTE | 2019-09-19 20:57 | NUR ---
Patient's saturations dropped to low 70s at shift change. Dr. Lowry aware, ordered to prone patient. Patinet proned emergentliy. Saturations increased to 100% once prone. ABG results handed directly to Dr. Lowry, no vent changes made. Dr. Lowry notified of tachycardia in 130s, order received to DC lasix and increase propofol.
[2019-09-19] MEDS: CENTRAL TPN FORMULA 1 BAG IV SCH (21:00)
--- NOTE | 2019-09-19 22:51 | Progress Note ---
DATE: SUBJECTIVE: This is a day #26 of hospitalization. The patient remains in intensive care unit. He was in prone position. He is now back on supine position. He is on 100% with tidal volume of 360, rate 34, PEEP 16, is intubated, sedated. OBJECTIVE: VITAL SIGNS: Stable. Afebrile. HEENT: He is not icteric. NECK: Supple. CHEST: Crackles. LABORATORY DATA: Reviewed. Chart reviewed. Chest x-ray also reviewed. The patient was currently on furosemide. I reviewed all his medication list. He is not on any antibiotic. IMPRESSION: Respiratory failure, acute respiratory distress syndrome, coronavirus disease-19, malnutrition. Continue with antibiotic as ordered. Andreea Maguire MD [facility]/MODL /[id number]
--- NOTE | 2019-09-19 23:07 | Progress Note ---
DATE: 09/19/2019 SUBJECTIVE: Sedated, unable to give history. OBJECTIVE: VITAL SIGNS: Temperature 97.3, pulse 134, respiratory rate 32, and blood pressure 120/66. GENERAL: Sedated. SKIN: No rash. HEENT: Endotracheal tube in place. LUNGS: Decreased breath sounds. HEART: Tachycardic. Normal S1 and S2. GI: Abdomen is soft and less distended. NEUROLOGIC: Sedated. PSYCHIATRIC: Sedated. LABORATORY DATA: Laboratory harrison, hemoglobin 7.5. ASSESSMENT AND PLAN: 1. Acute respiratory failure due to COVID-19 pneumonia. The patient has completed his antibiotic and Decadron. We will give IV Lasix x3 doses. We will continue vent management per lining strap closer. 2. Chronic blood loss anemia, stable after 2 units of blood. 3. Abdominal distention, better. Continue to monitor. 4. Fluid, electrolytes, and nutrition. We will continue TPN. 5. Gastrointestinal and deep venous thrombosis prophylaxis. Lovenox 100 mg twice a day per automatic transmission mechanic. MD ALIN Allred/ANGELA /[id number]
[2019-09-20] VITALS (25 sets, daily range): BP systolic 96–161; BP diastolic 58–81
[2019-09-20] LABS: ABG PH 7.28 (7.35-7.45)
[2019-09-20 00:01] LABS: ABG HCO3 40 mmol/L (22-26); ABG PCO2 84 mmHg (35-45); ABG PO2 56 mmHg (80-105)
--- NOTE | 2019-09-20 00:42 | Progress Note ---
DATE: 09/19/19 Cardiology Progress Note SUBJECTIVE: The patient was in prone position overnight now in supine position. He is intubated and sedated. OBJECTIVE: VITAL SIGNS: Afebrile. Heart rate 126 beats per minute. Telemetry shows sinus tachycardia. Blood pressure is 119/64, oxygen saturation is 89-90%, on FiO2 100%, and PEEP of 16. GENERAL: Intubated, sedated, in supine position. HEAD AND NECK: ET tube in place, oral intubation. NGT. CHEST: Ronchi both lung [place] CARDIOVASCULAR: Rate regular rate and rhythm. No murmurs heard. ABDOMEN: Soft, not distended. EXTREMITIES: no pitting leg edema, no cyanosis. Medications: Versed, fentanyl, and vecuronium. RADIOGRAPHIC DATA: Chest x-ray shows bilateral airspace opacities. LABORATORY DATA: White blood cell count is 6 and the hemoglobin and hematocrit are 7.5 and 25 respectively. The platelet count is 165. The BUN and creatinine are 13 and 0.5, respectively. The other electrolytes are within reference range. Albumin is 2.0. ASSESSMENT: (1) COVID-19 infection and severe viral pneumonia (2) Acute respiratory failure, prolonged intubation (3) Sinus tachycardia due to severe pulmonary problems, changing levels of sedation. (4) Hypertension by history. (5) Anemia (6) Mild thrombocytopenia PLAN: (1) Vent management as per pulmonary marketing sales consultant. (2) Treatment of viral infection as per ID service. (2) Hypertension adjust medications as needed. (3) Monitor CBC (4) Optimize nutritional support (5) Continue full support Lalitha Singh MD [facility]/MODL /[id number]
[2019-09-20] MEDS: FENTANYL 2000MCG/NS 250 250 ML IV PRN ×3 (02:20→18:50)
[2019-09-20] MEDS: PROPOFOL IV EMULSION 10MG/ML 100 ML IV PRN ×4 (03:55→21:14)
[2019-09-20 06:06] LABS: BASOPHILS % 0.3 % (0.0-1.0); EOSINOPHILS # (AUTO) 0.3 (0.0-0.4); EOSINOPHILS % 5.3 % (0.0-6.0); HEMATOCRIT 25.3 % (38.2-49.6); HEMOGLOBIN 7.7 g/dL (14.0-18.0); LYMPHOCYTES # (AUTO) 0.4 (1.0-3.2); LYMPHOCYTES % 6.6 % (18.0-39.1); MEAN CORPUSCULAR HEMOGLOBIN 31.4 pg (28-32); MEAN CORPUSCULAR HGB CONC 30.4 g/dL (31-35); MEAN CORPUSCULAR VOLUME 103.3 fL (81-99); MONOCYTES # (AUTO) 0.9 (0.2-0.8); MONOCYTES % 13.8 % (4.4-11.3); NEUTROPHILS # (AUTO) 4.6 (2.1-6.9); PLATELET COUNT 149 x10e3/uL (140-360); RED BLOOD COUNT 2.45 x10e6/uL (4.3-5.7); RED CELL DISTRIBUTION WIDTH 15.8 % (11.7-14.4)
[2019-09-20 06:23] LABS: ALANINE AMINOTRANSFERASE 43 IU/L (0-55); ALBUMIN 2.1 g/dL (3.5-5.0); ALBUMIN/GLOBULIN RATIO 0.6 (0.8-2.0); ALKALINE PHOSPHATASE 72 IU/L (40-150); BLOOD UREA NITROGEN 13 mg/dL (7-26); BUN/CREATININE RATIO 28 (6-25); CALCIUM 7.9 mg/dL (8.4-10.2); CARBON DIOXIDE 37 mmol/L (22-29); CHLORIDE 100 mmol/L (98-107); CREATININE, SERUM 0.47 mg/dL (0.72-1.25); EST GLOMERULAR FILTRATION RATE > 60 ML/MIN (60-); GLUCOSE 102 mg/dL (74-118); SODIUM 143 mmol/L (136-145)
[2019-09-20] MEDS: METOCLOPRAMIDE HCL 10 MG/2ML VIAL IV SCH ×3 (06:45→21:49)
[2019-09-20] MEDS: EYE LUBRICANT OPTH OINT 3.5GM TUBE OP SCH ×4 (06:45→23:39)
--- NOTE | 2019-09-20 07:00 | NUR ---
"Chair" as documented in Turn Q2H flowsheet denotes prone position
[2019-09-20] MEDS: DOCUSATE SODIUM LIQD 100 MG/10 ML UDC NG SCH ×2 (09:12→17:28)
[2019-09-20] MEDS: PANTOPRAZOLE 40 MG 10ML VIAL IV SCH (09:12)
[2019-09-20] MEDS: CYANOCOBALAMIN INJ 1,000 MCG/ML VIAL IM SCH (09:12)
[2019-09-20] MEDS: METOPROLOL TARTRATE 25 MG TAB PO SCH ×2 (09:13→22:02)
[2019-09-20] MEDS: ENOXAPARIN SODIUM INJ 100 MG/ML SYR SC SCH ×2 (09:13→22:02)
[2019-09-20] MEDS: CHOLECALCIFEROL 400 UNIT TAB PO SCH ×2 (09:13→22:02)
[2019-09-20] MEDS: ZINC SULFATE 220 MG CAP PO SCH (09:13)
[2019-09-20] MEDS: ROCURONIUM BROMIDE 250 MG in SODIUM CHLORIDE 0.9% 250ML 225 ML IV PRN ×4 (09:15→23:37)
--- NOTE | 2019-09-20 11:43 | Progress Note ---
DATE: SUBJECTIVE: The patient remains in the prone position. He had some tachycardia yesterday. His Lasix was held temporarily. PHYSICAL EXAMINATION: VITAL SIGNS: He remains on a PRVC mode of ventilation at a rate of 32 with 85% and PEEP of 14. His tidal volume is 370. HEENT: Shows no facial swelling or erythema. There is an oral endotracheal tube. He has a PICC line in place as well as a radial arterial line. CARDIAC: Reveals regular rate and rhythm with normal S1 and S2. LUNGS: Auscultation of lungs reveals rhonchorous breath sounds bilaterally. There is no wheezing. ABDOMEN: Soft and nontender. There is no rebound or guarding. EXTREMITIES: Show no leg edema or calf tenderness. There is no cyanosis or clubbing. SKIN: Shows no rashes. NEUROLOGICAL: Shows no focal abnormalities. LABORATORY DATA: White blood cell count is 6.2, hemoglobin is 7.7, and platelet count is 149. The BUN to creatinine ratio is 13 and 0.47, and the other electrolytes are within normal limits. The albumin is 2.1. IMPRESSION: 1. Acute respiratory failure. 2. Viral pneumonia and coronavirus disease 2019 infection. 3. Ileus. 4. Anemia, unspecified. 5. Thrombocytopenia. PLAN: 1. Continue to ventilate the patient in the prone position. 2. Continue ventilator settings and repeat ABG. 3. Restart albumin and Lasix. 4. Continue Lovenox. 5. Advance enteral feedings. 6. Continue to monitor blood counts. Greater than 35 minutes in direct critical care time. MD SAMINA Angel/ANGELA /[id number]
[2019-09-20] MEDS: FUROSEMIDE INJ 10 MG/ML 4 ML VIAL IV SCH ×2 (12:25→21:49)
[2019-09-20] MEDS: MIDAZOLAM HCL 50 MG in SODIUM CHLORIDE 0.9% 100 ML 90 ML IV PRN (12:43)
[2019-09-20] MEDS: ALBUMIN 25% 25GM 100ML 0.25 GM/ML BTL IV SCH ×2 (14:25→21:41)
[2019-09-20 14:28] LABS: ABG HCO3 41 mmol/L (22-26); ABG PCO2 71 mmHg (35-45); ABG PH 7.37 (7.35-7.45); ABG PO2 162 mmHg (80-105); ABG TCO2 43
--- NOTE | 2019-09-20 16:16 | NUR ---
VITAL SIGNS: He remains on a PRVC mode of ventilation at a rate of 32 with 85% and PEEP of 14. His tidal volume is 370. HEENT: Shows no facial swelling or erythema. There is an oral endotracheal tube. He has a PICC line in place as well as a radial arterial line. CARDIAC: Reveals regular rate and rhythm with normal S1 and S2. LUNGS: Auscultation of lungs reveals rhonchorous breath sounds bilaterally. There is no wheezing. ABDOMEN: Soft and nontender. There is no rebound or guarding. EXTREMITIES: Show no leg edema or calf tenderness. There is no cyanosis or clubbing. SKIN: Shows no rashes. NEUROLOGICAL: Shows no focal abnormalities. LABORATORY DATA: White blood cell count is 6.2, hemoglobin is 7.7, and platelet count is 149. The BUN to creatinine ratio [id number]
--- NOTE | 2019-09-20 17:00 | Progress Note ---
DATE: SUBJECTIVE: Mr. Miles remains in intensive care unit, in prone position. PHYSICAL EXAMINATION: VITAL SIGNS: Stable, afebrile. HEENT: He is not icteric. NECK: Supple. CHEST: Crackles bilateral. HEART: S1, S2. No murmurs. ABDOMEN: Soft. IMPRESSION: Respiratory failure, coronavirus disease-19 pneumonia, very slow progress. Discussed with the medical team today. Please refer to the orders in the chart. We will follow. MD MAYURI Taylor/MODL /[id number]
--- NOTE | 2019-09-20 21:00 | NUR ---
Dr. Lowry stated OK to leave patient in prone position for remainder of shift.
[2019-09-20] MEDS: CENTRAL TPN FORMULA 1 BAG IV SCH (22:11)
--- NOTE | 2019-09-20 23:10 | Progress Note ---
DATE: 09/20/2019 SUBJECTIVE: Intubated, sedated, unable to give history. OBJECTIVE: VITAL SIGNS: Temperature 99.3, pulse 105, respiratory rate 32, and blood pressure 141/77. GENERAL: Intubated, sedated. SKIN: No rash. HEENT: Endotracheal tube in place. LUNGS: Decreased breath sounds. HEART: Tachycardic, normal. Normal S1, S2. GI: Abdomen is soft and distended. NEUROLOGIC: Sedated. PSYCHIATRIC: Sedated. LABORATORY DATA: Laboratory harrison, hemoglobin 7.7 and creatinine 0.47. ASSESSMENT/PLAN: 1. Acute respiratory failure due to COVID-19 pneumonia. The patient has completed his antibiotic and Decadron. We will continue IV Lasix. Continue vent management per patient care provider. 2. Chronic blood loss anemia, stable. 3. Abdominal distention. Continue IV Reglan and rectal tube per upper GI. 4. Fluid, electrolytes, and nutrition. We will continue TPN. 5. Gastrointestinal and deep vein thrombosis prophylaxis. Lovenox 100 mg twice a day per front services agent. MD ALIN Allred/ANGELA /[id number]
[2019-09-21] VITALS (26 sets, daily range): BP systolic 100–186; BP diastolic 56–90
--- NOTE | 2019-09-21 00:01 | Progress Note ---
DATE: 09/20/2019 Cardiology Progress Note SUBJECTIVE: The patient remains intubated and sedated in prone position. OBJECTIVE: VITAL SIGNS: Blood pressure is 132/70 mmHg, heart rate is 110 and regular. The pulse oximetry is 100%, FiO2 85% on the vent. He is afebrile. GENERAL: Orally intubated, sedated. HEAD AND NECK: ET tube and NGT in place. CHEST: Ronchi both lung quevedo. CARDIOVASCULAR: Regular rate and rhythm. ABDOMEN: Exam deferred. EXTREMITIES: No pitting leg edema. MEDICATIONS: Reviewed. Telemetry: Sinus tachycardia LABORATORY DATA: ABG FiO2 85%: pH 7.37, pCO2 71, pO2 162, HCO3 41, SO2% 99 White blood cell count is 6.25 thousand, hemoglobin is 7.7 stable, hematocrit is 25.3, and platelet count is 149,000. Chemistry labs show a sodium of 143, potassium of 4, chloride of 100, carbon dioxide is 37, BUN is 13, creatinine 0.47. His calcium is 7.9 with an albumin of 2.1. His AST is 38, minimally elevated, ALT is 43, and alkaline phosphatase is 72. Assessment: 1. Acute respiratory failure. 2. Covid19 infection and severe viral pneumonia 3. Sinus tachycardia 4. Anemia, unspecified. 5. Thrombocytopenia. PLAN: 1. Vent management as per pulmonary service. 2. Sinus tachycardia: multifactorial related to clinical situation. 3. Monitor CBC. 4. Continue full support. MD LEONORA Feldman/ANGELA /[id number] MTDYaya
[2019-09-21] MEDS: PROPOFOL IV EMULSION 10MG/ML 100 ML IV PRN ×5 (00:49→22:51)
[2019-09-21] MEDS: FENTANYL 2000MCG/NS 250 250 ML IV PRN ×3 (03:00→18:00)
[2019-09-21] MEDS: MIDAZOLAM HCL 50 MG in SODIUM CHLORIDE 0.9% 100 ML 90 ML IV PRN ×4 (03:00→22:09)
[2019-09-21] MEDS: ROCURONIUM BROMIDE 250 MG in SODIUM CHLORIDE 0.9% 250ML 225 ML IV PRN ×4 (04:25→20:19)
--- NOTE | 2019-09-21 04:32 | NUR ---
Head repositioning (with RT present) and passive ROM performed throughout shift. PICC line dressing changed, all caps changed. No signs of redness or purulent drainage noted at insertion site.
[2019-09-21] MEDS: ALBUMIN 25% 25GM 100ML 0.25 GM/ML BTL IV SCH ×2 (05:16→20:48)
[2019-09-21] MEDS: METOCLOPRAMIDE HCL 10 MG/2ML VIAL IV SCH ×3 (05:16→22:07)
[2019-09-21 05:28] LABS: BASOPHILS % 0.3 % (0.0-1.0); EOSINOPHILS # (AUTO) 0.4 (0.0-0.4); EOSINOPHILS % 5.3 % (0.0-6.0); HEMATOCRIT 25.5 % (38.2-49.6); HEMOGLOBIN 7.6 g/dL (14.0-18.0); LYMPHOCYTES # (AUTO) 0.4 (1.0-3.2); LYMPHOCYTES % 6.3 % (18.0-39.1); MEAN CORPUSCULAR HEMOGLOBIN 29.9 pg (28-32); MEAN CORPUSCULAR HGB CONC 29.8 g/dL (31-35); MEAN CORPUSCULAR VOLUME 100.4 fL (81-99); MONOCYTES # (AUTO) 0.7 (0.2-0.8); MONOCYTES % 11.1 % (4.4-11.3); NEUTROPHILS % 76.1 % (38.7-80.0); PLATELET COUNT 190 x10e3/uL (140-360); RED BLOOD COUNT 2.54 x10e6/uL (4.3-5.7)
[2019-09-21 05:47] LABS: ALANINE AMINOTRANSFERASE 35 IU/L (0-55); ALBUMIN 2.5 g/dL (3.5-5.0); ALBUMIN/GLOBULIN RATIO 0.7 (0.8-2.0); ALKALINE PHOSPHATASE 81 IU/L (40-150); ANION GAP 9.6 mmol/L (8-16); BLOOD UREA NITROGEN 12 mg/dL (7-26); BUN/CREATININE RATIO 24 (6-25); CALCIUM 8.3 mg/dL (8.4-10.2); CARBON DIOXIDE 37 mmol/L (22-29); CHLORIDE 98 mmol/L (98-107); EST GLOMERULAR FILTRATION RATE > 60 ML/MIN (60-); GLUCOSE 103 mg/dL (74-118); POTASSIUM 3.6 mmol/L (3.5-5.1); SODIUM 141 mmol/L (136-145)
[2019-09-21] MEDS: EYE LUBRICANT OPTH OINT 3.5GM TUBE OP SCH ×4 (06:42→23:47)
[2019-09-21] MEDS ORDERED: CENTRAL TPN FORMULA 1 BAG IV SCH (07:37)
[2019-09-21] MEDS ORDERED: POTASSIUM CHLORIDE 20MEQ/15ML UDC NG ONE ×2 (07:45→12:30)
[2019-09-21 08:05] LABS: PHOSPHORUS 2.8 MG/DL (2.3-4.7)
[2019-09-21] MEDS: ZINC SULFATE 220 MG CAP PO SCH (08:37)
[2019-09-21] MEDS: ENOXAPARIN SODIUM INJ 100 MG/ML SYR SC SCH ×2 (08:37→21:07)
[2019-09-21] MEDS: DOCUSATE SODIUM LIQD 100 MG/10 ML UDC NG SCH ×2 (08:37→17:00)
[2019-09-21] MEDS: CHOLECALCIFEROL 400 UNIT TAB PO SCH ×2 (08:37→20:57)
[2019-09-21] MEDS: FUROSEMIDE INJ 10 MG/ML 4 ML VIAL IV SCH (08:37)
[2019-09-21] MEDS: PANTOPRAZOLE 40 MG 10ML VIAL IV SCH (08:37)
--- NOTE | 2019-09-21 09:52 | NUR ---
HEMATOLOGY/ONCOLOGY PROGRESS NOTE: HPI: Patient remains intubated in the ICU, no signs of active bleeding. Discussed with nurse. 12 point ROS unable to obtain secondary to patient intubated, sedated. PHYSICAL EXAM: Vitals: Reviewed as per EMR. PE limited due to COVID-19 contact precautions. LABORATORY: 09/21/2019: WBC: 6.56 Hgb: 7.6 Hct: 25.5 Platelet: 190 BUN: 12 Creatinine: 0.50 Anti-Xa level: Pending ASSESSMENT AND PLAN: Mr. Miles is a 42-year-old male with past medical history of hypertension who was admitted on 08/24/2019 due to cough and fever. Patient was found to be positive for COVID-19. Intubated due to worsening respiratory status. Patient has been treated with full-dose Lovenox since 09/08/19. Has required PRBC previously during admission. Patient now with dropping platelet count and recurrent anemia requiring PRBC transfusion. Hematology/Oncology has been consulted to assist with the management. 1. Thrombocytopenia: Unknown baseline platelet count, counts have fluctuated throughout admission. DIC panel showed no coagulopathy, elevated fibrinogen, does not appear DIC. Acute hepatitis panel negative. Abdominal US without evidence of liver cirrhosis or splenomegaly. HIT panel negative. Continue full-dose anticoagulation with Lovenox 1mg/kg subcu every 12 hours. Anti-Xa level pending to ensure therapeutic level as patient is obese. RESOLVED. Monitor. 2. Anemia: Anemia panel appears mixed picture AOCD + RODRIGUEZ with noted low B12 level. Macrocytosis probably combination of B12 deficiency and possibly also related to bone marrow suppression from viral infection. Ferritin mildly elevated, likely as acute phase reactant. Repeat ferritin significantly more elevated hold IV iron. Reticulocyte count and LDH mildly elevated, haptoglobin elevated, does not appear hemolysis. S/P 1 unit PRBC transfused on 09/15/19. Hemoglobin low, but stable. Will monitor closely as on anticoagulation. Transfuse if hemoglobin < 7. 3. COVID-19 PNA: In the ICU, pharmacologically sedated, paralyzed, intubated, on ventilator. On TPN. Undergoing intermittent proning. CXR with increasing opa cities consistent with PNA. S/P course of antibiotics and steroids. Pulmonary and infectious disease on board. 4. Melena?: Hx of dark loose stools however no signs of bleeding per nursing staff. On Protonix IV. H/H stable. GI on board. 5. DVT proph: Full dose Lovenox as per #1. Above plan discussed with Dr. Lona Martinez. Thank you for the consult. I will be available. Please call with questions.
[2019-09-21] MEDS ORDERED: LACTULOSE SYRUP 20 GM/30 ML UDC RC ONE (10:45)
[2019-09-21] MEDS: METOPROLOL TARTRATE 25 MG TAB PO SCH ×2 (10:53→20:57)
[2019-09-21] MEDS ORDERED: FUROSEMIDE INJ 100 MG in SODIUM CHLORIDE 0.9% 100 ML 90 ML IV SCH (11:00)
--- NOTE | 2019-09-21 11:21 | Progress Note ---
DATE: Pulmonary Critical Care Progress Note SUBJECTIVE: The patient is now in a supine position. His oxygenation is worsen. He was on 70%. He has been increased to 100%. He remains on Versed, fentanyl, and rocuronium. PHYSICAL EXAMINATION: VITAL SIGNS: The patient is afebrile. The blood pressure is 155/63, saturation is 95%, and pulse is 111. CARDIAC: Regular rate and rhythm with normal S1, S2. LUNGS: Auscultation of lungs reveals rhonchorous breath sounds bilaterally. There is no wheezing. ABDOMEN: Soft, nontender. There is no rebound or guarding. GENITOURINARY: There is scrotal edema. EXTREMITIES: No leg edema or calf tenderness. There is no cyanosis or clubbing. LABORATORY DATA: White blood cell count is 6.56, and hemoglobin is 7.6. The platelet count is 190. The BUN to creatinine ratio is normal. The other electrolytes are within normal limits. Albumin is 2.5. IMPRESSION: 1. Acute respiratory failure. 2. Viral pneumonia and coronavirus disease-19 infection. 3. Ileus. 4. Anemia, unspecified. 5. Thrombocytopenia. PLAN: 1. Continue current mode of ventilation and monitor ABGs. 2. Begin Lasix drip for 12 hours. 3. Continue Lovenox. 4. Advance enteral feedings as tolerated. 5. Lactulose enema. 6. Case discussed with nursing staff, Respiratory, Internal Medicine, Infectious Disease, and administration. Greater than 35 minutes in direct critical care time. Maximilian Lowry MD [facility]/MODL /[id number]
--- NOTE | 2019-09-21 11:40 | Diagnostic Imaging Report ---
EXAMINATION: CHEST SINGLE (PORTABLE) INDICATION: Respiratory failure COMPARISON: Chest radiograph 09/19/2019 FINDINGS: LINES/TUBES:Endotracheal tube terminates 5.6 cm above the fred. Remaining support lines and tubes unchanged. LUNGS:The lung volumes are low. Persistent bilateral airspace opacities. PLEURA:There is obscuration of right hemidiaphragm which could be due to effusion and or atelectasis, unchanged. MEDIASTINUM:The cardiomediastinal silhouette is obscured by adjacent opacity. BONES/SOFT TISSUES:No acute osseous finding. ABDOMEN:No free air under the diaphragm. IMPRESSION: 1. Persistent bilateral airspace opacities consistent with multifocal pneumonia. 2. Persistent obscuration of right hemidiaphragm which could be due to effusion and or atelectasis. Signed by: Chirag Polanco MD on 09/21/2019 11:36 AM
[2019-09-21] MEDS: CYANOCOBALAMIN INJ 1,000 MCG/ML VIAL IM SCH (12:33)
[2019-09-21] MEDS ORDERED: CITRATE OF MAGNESIA 300ML BOTTLE PO ONE (12:45)
--- NOTE | 2019-09-21 15:18 | Progress Note ---
DATE: SUBJECTIVE: Mr. Miles remains in intensive care unit with day 28. He seems to be comfortable. PHYSICAL EXAMINATION: GENERAL: He is currently intubated, sedated. VITAL SIGNS: Stable. Remains on high ventilator demand. HEENT: He is not icteric. NECK: Supple. CHEST: Few crackles, bilateral. HEART: S1, S2. No murmurs. ABDOMEN: Soft. IMPRESSION: 1. Respiratory failure. 2. Coronavirus disease-19. 3. Anemia. 4. Obesity. Further recommendations to follow. MD MAYURI Taylor/MODL /[id number]
[2019-09-21 15:52] LABS: ABG HCO3 40 mmol/L (22-26); ABG PCO2 69 mmHg (35-45); ABG PH 7.37 (7.35-7.45); ABG PO2 148 mmHg (80-105); ABG TCO2 42
[2019-09-21 15:58] LABS: ABG HCO3 39 mmol/L (22-26); ABG PCO2 68 mmHg (35-45); ABG PH 7.37 (7.35-7.45); ABG PO2 62 mmHg (80-105); ABG TCO2 41
[2019-09-21] MEDS ORDERED: SODIUM CHLORIDE 0.9% 500ML 500 ML ONE (20:33)
[2019-09-21] MEDS: CENTRAL TPN FORMULA 1 BAG IV SCH (21:00)
[2019-09-22] VITALS (64 sets, daily range): BP systolic 97–196; BP diastolic 60–111
--- NOTE | 2019-09-22 01:05 | Progress Note ---
DATE: 09/21/2019 SUBJECTIVE: Intubated, sedated, cannot give any history. OBJECTIVE: GENERAL: Sedated, intubated. SKIN: No rash. HEENT: An endotracheal tube in place. HEART: Tachycardic. LUNGS: Decreased breath sounds. ABDOMEN: Soft, distended. NEUROLOGIC: Sedated. PSYCHIATRIC: Sedated. LABORATORY VALUES: White count 6.6, hemoglobin 7.6, platelet count 190, and creatinine 0.5. ASSESSMENT AND PLAN: 1. Acute respiratory failure due to COVID-19 pneumonia. The patient has completed his antibiotic and Decadron. We will continue IV Lasix. Also, continue vent management per catheter builder. 2. Chronic blood loss anemia, stable. 3. Abdominal distention, slowly getting better. GI is following. 4. Fluid, electrolytes, and nutrition. We will continue TPN. 5. Gastrointestinal and deep venous thrombosis prophylaxes. Continue Lovenox 100 mg twice a day per cover maker. MD ALIN Allred/ANGELA /[id number]
--- NOTE | 2019-09-22 01:36 | Progress Note ---
DATE: 09/21/2019 Cardiology Progress Note SUBJECTIVE: The patient is endotracheally intubated in the supine position on 100% FiO2 (increased from 70% due to oxygen desaturation). OBJECTIVE: GENERAL: The patient is sedated and paralyzed on ventilator. VITAL SIGNS: His blood pressure is 136/67 with a heart rate of 111 beats per minute. His pulse oximetry is 89-93% on FiO2 100%, PEEP 16. He is afebrile. HEAD AND NECK: ET (oral intubation) and NG tubes in place. CHEST: Rhonchi both lung quevedo. CARDIOVASCULAR: Regular rate and rhythm. ABDOMEN: Soft. EXTREMITIES: no pitting leg edema. MEDICATIONS: Versed, fentanyl, and rocuronium LABORATORY DATA: ABG FiO2 100%: pH 7.37, pCO@ 68, pO2 62, HCO3 39, SO2% 89 White blood cell count of 6.56, hemoglobin is 7.6, hematocrit is 25.5. Hemoglobin and hematocrit are stable. His platelet count is 190,000, improved from 149,000 yesterday. Basic metabolic profile shows a sodium of 141, potassium 3.6, chloride of 98, carbon dioxide is 37, BUN is 12, creatinine is 0.5, glucose is 103. His liver tests were within reference range. Telemetry: sinus tachycardia. Echo 09/19/19: Limited echo, only subcostal views available. Left ventricle normal in size and systolic function; LVEF 65-69%. Wall motion normal. Right ventricular systolic function normal. No significant pericardial effusion. ASSESSMENT: 1. Covid 19 infection. 2. Severe viral pneumonia. 3. Acute respiratory failure and prolonged endotracheal intubation. 4. Anemia and thrombocytopenia. PLAN: 1. Lasix drip ordered by pulmonary sfdc consultant. 2. Monitor electrolytes and renal function. 3. Vent management as per pulmonary sfdc consultant. 4. Continue full support. Lalitah Singh MD [facility]/MODL /[id number] MTDD
[2019-09-22] MEDS: PROPOFOL IV EMULSION 10MG/ML 100 ML IV PRN ×6 (01:55→23:08)
[2019-09-22] MEDS: ROCURONIUM BROMIDE 250 MG in SODIUM CHLORIDE 0.9% 250ML 225 ML IV PRN ×3 (02:58→18:23)
[2019-09-22] MEDS: ALBUMIN 25% 25GM 100ML 0.25 GM/ML BTL IV SCH (03:08)
[2019-09-22] MEDS: FENTANYL 2000MCG/NS 250 250 ML IV PRN ×2 (04:40→21:06)
[2019-09-22] MEDS: MIDAZOLAM HCL 50 MG in SODIUM CHLORIDE 0.9% 100 ML 90 ML IV PRN ×4 (04:40→21:07)
[2019-09-22 05:22] LABS: BASOPHILS % 0.4 % (0.0-1.0); EOSINOPHILS # (AUTO) 0.3 (0.0-0.4); EOSINOPHILS % 5.8 % (0.0-6.0); HEMATOCRIT 24.7 % (38.2-49.6); HEMOGLOBIN 7.3 g/dL (14.0-18.0); LYMPHOCYTES # (AUTO) 0.5 (1.0-3.2); LYMPHOCYTES % 9.9 % (18.0-39.1); MEAN CORPUSCULAR HEMOGLOBIN 28.9 pg (28-32); MEAN CORPUSCULAR HGB CONC 29.6 g/dL (31-35); MEAN CORPUSCULAR VOLUME 97.6 fL (81-99); MONOCYTES # (AUTO) 0.6 (0.2-0.8); MONOCYTES % 12.5 % (4.4-11.3); NEUTROPHILS # (AUTO) 3.5 (2.1-6.9); NEUTROPHILS % 70.6 % (38.7-80.0); PLATELET COUNT 182 x10e3/uL (140-360); RED BLOOD COUNT 2.53 x10e6/uL (4.3-5.7); RED CELL DISTRIBUTION WIDTH 15.2 % (11.7-14.4)
[2019-09-22 05:47] LABS: ALANINE AMINOTRANSFERASE 28 IU/L (0-55); ALBUMIN 3.1 g/dL (3.5-5.0); ALKALINE PHOSPHATASE 83 IU/L (40-150); ANION GAP 10.4 mmol/L (8-16); BLOOD UREA NITROGEN 9 mg/dL (7-26); BUN/CREATININE RATIO 18 (6-25); CALCIUM 8.3 mg/dL (8.4-10.2); CARBON DIOXIDE 37 mmol/L (22-29); CHLORIDE 98 mmol/L (98-107); EST GLOMERULAR FILTRATION RATE > 60 ML/MIN (60-); GLUCOSE 90 mg/dL (74-118); POTASSIUM 3.4 mmol/L (3.5-5.1); SODIUM 142 mmol/L (136-145)
[2019-09-22] MEDS: METOCLOPRAMIDE HCL 10 MG/2ML VIAL IV SCH ×3 (05:54→21:05)
[2019-09-22] MEDS: EYE LUBRICANT OPTH OINT 3.5GM TUBE OP SCH ×4 (05:55→23:07)
--- NOTE | 2019-09-22 08:21 | NUR ---
HEMATOLOGY/ONCOLOGY PROGRESS NOTE: HPI: Intubated and sedated in the ICU. 12 point ROS unable to obtain secondary to patient intubated, sedated. PHYSICAL EXAM: Vitals: Reviewed as per EMR. PE limited due to COVID-19 contact precautions. LABORATORY: 09/22/2019: WBC: 4.96 Hgb: 7.3 Hct: 24.7 Platelet: 182 BUN: 9 Creatinine: 0.50 Anti-Xa level: Pending ASSESSMENT AND PLAN: Mr. Miles is a 42-year-old male with past medical history of hypertension who was admitted on 08/24/2019 due to cough and fever. Patient was found to be positive for COVID-19. Intubated due to worsening respiratory status. Patient has been treated with full-dose Lovenox since 09/08/19. Has required PRBC previously during admission. Patient now with dropping platelet count and recurrent anemia requiring PRBC transfusion. Hematol ogy/Oncology has been consulted to assist with the management. 1. Thrombocytopenia: Unknown baseline platelet count, counts have fluctuated throughout admission. DIC panel showed no coagulopathy, elevated fibrinogen, does not appear DIC. Acute hepatitis panel negative. Abdominal US without evidence of liver cirrhosis or splenomegaly. HIT panel negative. Continue full-dose anticoagulation with Lovenox 1mg/kg subcu every 12 hours. Anti-Xa level pending to ensure therapeutic level as patient is obese. RESOLVED. Monitor. 2. Anemia: Anemia panel appears mixed picture AOCD + RODRIGUEZ with noted low B12 level. Macrocytosis probably combination of B12 deficiency and possibly also related to bone marrow suppression from viral infection. Ferritin mildly elevated, likely as acute phase reactant. Repeat ferritin significantly more elevated hold IV iron. Reticulocyte count and LDH mildly elevated, haptoglobin elevated, does not appear hemolysis. S/P 1 unit PRBC transfused on 09/15/19. Hemoglobin low and slowly trending down. Will monitor closely as on anticoagulation. Transfuse if hemoglobin < 7. 3. COVID-19 PNA: In the ICU, pharmacologically sedated, paralyzed, intubated, on ventilator. On TPN. Undergoing intermittent proning. CXR consistent with multifocal PNA. S/P course of antibiotics and steroids. On IV lasix. Pulmonary and infectious disease on board. 4. Melena/ileus/abd distention: On Protonix IV. NGT in place. H/H slowly trending down. GI on board. 5. DVT proph: Full dose Lovenox as per #1. Above plan discussed with Dr. Lona Martinez. Thank you for the consult. I will be available. Please call with questions.
[2019-09-22] MEDS: PANTOPRAZOLE 40 MG 10ML VIAL IV SCH (08:54)
[2019-09-22] MEDS: ENOXAPARIN SODIUM INJ 100 MG/ML SYR SC SCH ×2 (08:54→21:04)
[2019-09-22] MEDS: CYANOCOBALAMIN INJ 1,000 MCG/ML VIAL IM SCH (08:54)
[2019-09-22] MEDS: CHOLECALCIFEROL 400 UNIT TAB PO SCH ×2 (08:54→21:04)
[2019-09-22] MEDS: ZINC SULFATE 220 MG CAP PO SCH (08:54)
[2019-09-22] MEDS: DOCUSATE SODIUM LIQD 100 MG/10 ML UDC NG SCH ×2 (08:54→17:00)
[2019-09-22] MEDS: METOPROLOL TARTRATE 25 MG TAB PO SCH ×2 (08:54→21:04)
[2019-09-22 09:14] LABS: ABG HCO3 41 mmol/L (22-26); ABG PCO2 63 mmHg (35-45); ABG PH 7.42 (7.35-7.45); ABG PO2 132 mmHg (80-105); ABG TCO2 42
--- NOTE | 2019-09-22 09:46 | Progress Note ---
DATE: SUBJECTIVE: The patient was in the supine position briefly yesterday, but had to be placed back in the prone position. He now in a prone position and is on 65% FiO2 with a PRVC mode of ventilation at a rate of 32. The tidal volume of 370. His PEEP is set at 14. His peak airway pressure is 42 and his mean pressure is 25. PHYSICAL EXAMINATION: VITAL SIGNS: The blood pressure is 170/80, heart rate is 105 to 115. HEENT: No facial swelling. He has an oral endotracheal tube. He has a PICC line and arterial line. LUNGS: He has crackles at the bases. HEART: He has a regular rate and rhythm with normal S1, S2. ABDOMEN: Mildly distended. : He has scrotal edema. EXTREMITIES: He also has peripheral leg edema. LABORATORY DATA: White blood cell count is 4.96, hemoglobin 7.3, and the platelet count is 182. BUN to creatinine ratio is 9 to 0.5, and the potassium is 3.4. Other electrolytes are within normal limits. RADIOGRAPHIC DATA: Chest x-ray shows bilateral infiltrates. IMPRESSION: 1. Acute respiratory failure. 2. Viral pneumonia and coronavirus disease-19 infection. 3. Ileus. 4. Anemia, unspecified. 5. Thrombocytopenia. 6. Edema and fluid overload. PLAN: 1. The patient will be started on Lasix drip at 10 mg an hour today with repletion of potassium. 2. Advance enteral feedings and wean off TPN. 3. Continue current ventilator settings and monitor ABG. 4. Place the patient back in the supine position. 5. Continue to monitor blood counts and renal function. Case discussed with nursing staff, Respiratory, Internal Medicine, Infectious Disease and family. Greater than 35 minutes in direct critical care time. MD SAMINA Angel/ANGELA /[id number]
--- NOTE | 2019-09-22 11:07 | NUR ---
CALL REC'D FROM DR HI WHO STATES PT'S MOTHER IS CALLING HIM ASKING FOR SOMEONE TO FAX PT'S MEDICAL RECORS TO [employer] JAYLA BENSON CM SPOKE WITH PAULO IN MEDICAL RECORDS [phone] WHO STATES INSURANCE NEEDS TO FAX REQUEST TO [facility] AT [phone] LETY CALLED AND SPOKE WITH PT'S MOTHER, SHA MARCELINO T [phone] EXPLAINED TO HER TO CONTACT THE [employer] AND ASK HER TO FAX REQUEST TO [facility] GAVE HER SANDHYANIER'S PHONE NUMBER IF THEY HAVE ANY QUESTIONS
--- NOTE | 2019-09-22 11:43 | Diagnostic Imaging Report ---
EXAMINATION: CHEST SINGLE (PORTABLE) INDICATION: Respiratory failure COMPARISON: Chest radiograph 09/21/2019 FINDINGS: LINES/TUBES:Support lines and tubes appear unchanged. LUNGS:The lung volumes are low. Persistent bilateral multifocal airspace opacities. PLEURA:No pneumothorax. Possible small pleural effusions. MEDIASTINUM:The cardiomediastinal silhouette appears unchanged in size and shape. BONES/SOFT TISSUES:No acute osseous injury. ABDOMEN:No free air under the diaphragm. IMPRESSION: No significant interval change. Signed by: Farrah Pierson MD on 09/22/2019 11:40 AM
--- NOTE | 2019-09-22 11:44 | Diagnostic Imaging Report ---
Exam: KUB - 2 views Indication: NG tube placement Comparison: Chest radiograph of earlier the same day Findings: NG tube with tip and side-port in the stomach. Intrathoracic findings better detailed on concurrently reported chest radiograph. Impression: NG tube with tip and side-port in the stomach. Signed by: Farrah Pierson MD on 09/22/2019 11:41 AM
[2019-09-22] MEDS: POTASSIUM CHLORIDE 20MEQ/15ML UDC NG SCH ×2 (11:47→21:08)
[2019-09-22] MEDS: FUROSEMIDE INJ 100 MG in SODIUM CHLORIDE 0.9% 100 ML 90 ML IV SCH ×2 (11:48→20:56)
--- NOTE | 2019-09-22 12:17 | Progress Note ---
DATE: 09/22/2019 Cardiology Progress Note SUBJECTIVE: Mr. Miles remains intubated, sedated, in prone position. OBJECTIVE: VITAL SIGNS: Temperature 98.4, heart rate 107 on telemetry sinus tachycardia, blood pressure 173/82, respiratory rate 32, and saturation 100%. BMI 40. GENERAL: Intubated, sedated, prone position. HEENT: Tube in place. NECK: Supple. CHEST: With rales, decreased breath sounds. CARDIOVASCULAR: Regular rate and rhythm. Normal S1 and S2. Distant heart sounds. EXTREMITIES: Trace edema. Warm extremities. CARDIOVASCULAR MEDICATIONS: Reviewed, on, 1. Furosemide. 2. Lisinopril 40 mg daily. 3. Potassium chloride 40 mEq q.12 hours. 4. Metoprolol tartrate 12.5 mg q.12 hours. STUDIES: Reviewed. Sodium 142, potassium 3.4, chloride 98, bicarbonate 37, BUN 9, creatinine 0.5, and glucose 90. White blood cells 4, hemoglobin 7, and platelets 182. INR 1. AST 22, ALT 28, and alkaline phosphatase 83. ASSESSMENT AND PLAN: A 44-year-old man with COVID-19 infection, community-acquired pneumonia, acute respiratory failure, recurrent anemia, hypertension, and morbid obesity. RECOMMEND: 1. Continue diuretics and replete electrolytes as needed. 2. Continue supportive care and wean vent as tolerated. MD OPAL Del Valle/ANGELA /[id number]
--- NOTE | 2019-09-22 13:49 | NUR ---
he patient was in the supine position briefly yesterday, but had to be placed back in the prone position. He now in a prone position and is on 65% FiO2 with a PRVC mode of ventilation at a rate of 32. The tidal volume of 370. His PEEP is set at 14. His peak airway pressure is 42 and his mean pressure is 25. PHYSICAL EXAMINATION: VITAL SIGNS: The blood pressure is 170/80, heart rate is 105 to 115. HEENT: No facial swelling. He has an oral endotracheal tube. He has a PICC line and arterial line. LUNGS: He has crackles at the bases. HEART: He has a regular rate and rhythm with normal S1, S2. ABDOMEN: Mildly distended. : He has scrotal edema. EXTREMITIES: He also has peripheral leg edema. LABORATORY DATA: White blood cell count is 4.96, hemoglobin 7.3, and the platelet count is 182. BUN to creatinine ratio is 9 to 0.5, and the potassium is 3.4. Other electrolytes are within normal limits. RADIOGRAPHIC DATA: Chest x-ray shows bilateral infiltrates. [id number]
--- NOTE | 2019-09-22 16:44 | Progress Note ---
DATE: SUBJECTIVE: Mr. Miles is in intensive care unit. He is intubated, sedated. OBJECTIVE: VITAL SIGNS: Stable, currently afebrile. HEENT: He is not icteric. NECK: Supple. CHEST: Few crackles. HEART: S1, S2. ABDOMEN: Soft. LABORATORY DATA: Reviewed. Chart reviewed. IMPRESSION: Respiratory failure, coronavirus disease-19, anemia. Discussed with Critical Care. Plan of care was also discussed with telemedicine team. Please refer to the orders. We will follow. MD MAYURI Taylor/MODL /[id number]
[2019-09-22] MEDS: HYDRALAZINE HCL 20 MG/ML VIAL IV PRN (17:19)
[2019-09-22] MEDS ORDERED: LABETALOL HCL 5 MG/ML 20ML VIAL IV PRN (17:45)
[2019-09-22] MEDS ORDERED: ENALAPRILAT IV INJ 1.25 MG/ML VIAL IV PRN (18:30)
[2019-09-22] MEDS: CENTRAL TPN FORMULA 1 BAG IV SCH (21:03)
[2019-09-23] VITALS (24 sets, daily range): BP systolic 114–185; BP diastolic 57–109
[2019-09-23 00:34] LABS: ABG HCO3 42 mmol/L (22-26); ABG PCO2 66 mmHg (35-45); ABG PH 7.41 (7.35-7.45); ABG PO2 78 mmHg (80-105); ABG TCO2 44
[2019-09-23] MEDS: HYDRALAZINE HCL 20 MG/ML VIAL IV PRN (01:00)
--- NOTE | 2019-09-23 01:05 | Progress Note ---
DATE: 09/22/2019 SUBJECTIVE: Intubated and sedated, cannot give any history. OBJECTIVE: VITAL SIGNS: Temperature 98.8, pulse 107, respiratory rate 32, blood pressure 130/65. GENERAL: Intubated and sedated. SKIN: No rash. HEENT: Endotracheal tube in place. LUNGS: Decreased breath sounds. HEART: Tachycardic. Normal S1 and S2. GI: Abdomen is soft, distended. NEUROLOGIC: Sedated. PSYCHIATRIC: Sedated. LABORATORY DATA: Hemoglobin 7.3. Creatinine 0.5. ASSESSMENT AND PLAN: 1. Acute respiratory failure due to coronavirus disease 2019 pneumonia. The patient has completed his antibiotic and Decadron. We will continue Lasix drip per accounting manager and also continue vent support per accounting manager. 2. Chronic blood loss anemia, which is stable. 3. Abdominal distention per GI. 4. Morbid obesity. 5. Fluid, electrolytes, and nutrition. We will continue TPN. 6. Gastrointestinal and deep venous thrombosis prophylaxis. Continue Lovenox 100 mg twice a day per carbonating stone cleaner. MD ALIN Allred/REYESL /[id number]
[2019-09-23] MEDS: PROPOFOL IV EMULSION 10MG/ML 100 ML IV PRN ×3 (03:15→12:20)
[2019-09-23] MEDS: ROCURONIUM BROMIDE 250 MG in SODIUM CHLORIDE 0.9% 250ML 225 ML IV PRN ×3 (03:16→20:32)
[2019-09-23] MEDS: FENTANYL 2000MCG/NS 250 250 ML IV PRN ×2 (03:17→20:31)
[2019-09-23] MEDS: MIDAZOLAM HCL 50 MG in SODIUM CHLORIDE 0.9% 100 ML 90 ML IV PRN (03:18)
[2019-09-23] MEDS: FUROSEMIDE INJ 100 MG in SODIUM CHLORIDE 0.9% 100 ML 90 ML IV SCH ×2 (04:12→16:33)
[2019-09-23] MEDS: METOCLOPRAMIDE HCL 10 MG/2ML VIAL IV SCH (04:12)
[2019-09-23] MEDS: EYE LUBRICANT OPTH OINT 3.5GM TUBE OP SCH ×4 (04:12→23:22)
[2019-09-23 04:38] LABS: BASOPHILS # (AUTO) 0.1 (0.0-0.1); BASOPHILS % 0.6 % (0.0-1.0); EOSINOPHILS # (AUTO) 0.3 (0.0-0.4); EOSINOPHILS % 2.6 % (0.0-6.0); HEMATOCRIT 31.2 % (38.2-49.6); HEMOGLOBIN 9.3 g/dL (14.0-18.0); LYMPHOCYTES # (AUTO) 0.5 (1.0-3.2); LYMPHOCYTES % 3.7 % (18.0-39.1); MEAN CORPUSCULAR HEMOGLOBIN 29.3 pg (28-32); MEAN CORPUSCULAR HGB CONC 29.8 g/dL (31-35); MEAN CORPUSCULAR VOLUME 98.4 fL (81-99); MONOCYTES # (AUTO) 1.1 (0.2-0.8); MONOCYTES % 8.5 % (4.4-11.3); NEUTROPHILS # (AUTO) 10.3 (2.1-6.9); NEUTROPHILS % 83.5 % (38.7-80.0); PLATELET COUNT 262 x10e3/uL (140-360); RED BLOOD COUNT 3.17 x10e6/uL (4.3-5.7); RED CELL DISTRIBUTION WIDTH 15.2 % (11.7-14.4)
[2019-09-23 04:55] LABS: ALANINE AMINOTRANSFERASE 30 IU/L (0-55); ALBUMIN 2.9 g/dL (3.5-5.0); ALBUMIN/GLOBULIN RATIO 0.8 (0.8-2.0); ALKALINE PHOSPHATASE 97 IU/L (40-150); ANION GAP 17.3 mmol/L (8-16); BLOOD UREA NITROGEN 5 mg/dL (7-26); BUN/CREATININE RATIO 10 (6-25); CARBON DIOXIDE 38 mmol/L (22-29); CHLORIDE 93 mmol/L (98-107); EST GLOMERULAR FILTRATION RATE > 60 ML/MIN (60-); GLUCOSE 129 mg/dL (74-118); POTASSIUM 3.3 mmol/L (3.5-5.1); SODIUM 145 mmol/L (136-145)
--- NOTE | 2019-09-23 08:41 | NUR ---
HEMATOLOGY/ONCOLOGY PROGRESS NOTE: HPI: Intubated and sedated in the COVID ICU. ROS: 14 point ROS unable to obtain secondary to patient intubated, sedated. PHYSICAL EXAM: Vitals: Reviewed as per EMR. PE limited due to COVID-19 contact precautions. LABORATORY DATA: 09/23/2019: WBC: 12.31 Hgb: 9.3 Hct: 31.2 Platelet: 262 BUN: 5 Creatinine: 0.50 Anti-Xa level: Pending RADIOLOGY DATA: CXR 09/22/19: No significant interval change Abd X-ray 09/22/19: NG tube with tip and side-port in the stomach. ASSESSMENT AND PLAN: Mr. Miles is a 42-year-old male with past medical history of hypertension who was admitted on 08/24/2019 due to cough and fever. Patient was found to be positive for COVID-19. Intubated due to worsening respiratory status. Patient has been treated with full-dose Lovenox since 09/08/19. Has required PRBC previously during admission. Patient now with dropping platelet count and recurrent anemia requiring PRBC transfusion. Hematology/Oncology has been consulted to assist with the management. 1. Thrombocytopenia: Unknown baseline platelet count, counts have fluctuated throughout admission. DIC panel showed no coagulopathy, elevated fibrinogen, does not appear DIC. Acute hepatitis panel negative. Abdominal US without evidence of liver cirrhosis or splenomegaly. HIT panel negative. Continue full-dose anticoagulation with Lovenox 1mg/kg subcu every 12 hours. Anti-Xa level pending to ensure therapeutic level as patient is obese. RESOLVED. Monitor. 2. Anemia: Anemia panel appears mixed picture AOCD + RODRIGUEZ with noted low B12 level. Macrocytosis probably combination of B12 deficiency and possibly also related to bone marrow suppression from viral infection. Ferritin mildly elevated, likely as acute phase reactant. Repeat ferritin significantly more la vated hold IV iron. Reticulocyte count and LDH mildly elevated, haptoglobin elevated, does not appear hemolysis. S/P 1 unit PRBC transfused on 09/15/19. Continue B12 IM daily. Hemoglobin improved today. Will monitor closely as on anticoagulation. Transfuse if hemoglobin < 7. 3. COVID-19 PNA: In the ICU, pharmacologically sedated, paralyzed, intubated, on ventilator. On TPN. Undergoing intermittent proning. CXR consistent with multifocal PNA. S/P course of antibiotics and steroids. On IV lasix. Pulmonary and infectious disease on board. 4. Melena/ileus/abd distention: On Protonix IV. NGT in place verified on repeat abx x-ray. H/H improving. GI on board. 5. DVT proph: Full dose Lovenox as per #1. Above plan discussed with Dr. Lona Martinez. Thank you for the consult. I will be available. Please call with questions.
--- NOTE | 2019-09-23 09:15 | Diagnostic Imaging Report ---
EXAMINATION: CHEST SINGLE (PORTABLE) INDICATION: Respiratory failure COMPARISON: Chest radiograph 09/22/2019 FINDINGS: LINES/TUBES:Support lines and tubes unchanged. LUNGS:The lungs are moderately inflated. Unchanged bilateral multifocal airspace opacities. PLEURA:No pneumothorax. Possible small pleural effusions. MEDIASTINUM:The cardiomediastinal silhouette appears unchanged in size and shape. BONES/SOFT TISSUES:No acute osseous injury. ABDOMEN:No free air under the diaphragm. IMPRESSION: No significant interval change. Signed by: Farrah Pierson MD on 09/23/2019 9:11 AM
[2019-09-23] MEDS: CYANOCOBALAMIN INJ 1,000 MCG/ML VIAL IM SCH (09:16)
[2019-09-23] MEDS: DOCUSATE SODIUM LIQD 100 MG/10 ML UDC NG SCH ×2 (09:16→17:50)
[2019-09-23] MEDS: PANTOPRAZOLE 40 MG 10ML VIAL IV SCH (09:16)
[2019-09-23] MEDS: ZINC SULFATE 220 MG CAP PO SCH (09:18)
[2019-09-23] MEDS: CHOLECALCIFEROL 400 UNIT TAB PO SCH ×2 (09:18→20:33)
[2019-09-23] MEDS: ENOXAPARIN SODIUM INJ 100 MG/ML SYR SC SCH ×2 (09:19→20:33)
[2019-09-23 09:42] LABS: ABG PCO2 71 mmHg (35-45); ABG PH 7.41 (7.35-7.45); ABG PO2 85 mmHg (80-105)
[2019-09-23 09:43] LABS: ABG HCO3 45 mmol/L (22-26); ABG TCO2 47
[2019-09-23] MEDS: METOPROLOL TARTRATE 25 MG TAB PO SCH ×3 (09:50→20:33)
--- NOTE | 2019-09-23 09:50 | NUR ---
Baseball Sewer Hand called pt's , Rocio, to provide spiritual/emotional support. No answer. Will attempt to call again as able. [facility] O: [phone]
--- NOTE | 2019-09-23 12:14 | Progress Note ---
DATE: 09/23/2019 Cardiology Progress Note SUBJECTIVE: Mr. Miles remains intubated and sedated in prone position. OBJECTIVE: VITAL SIGNS: Temperature 97.3, heart rate 119 on telemetry, in sinus tachycardia, blood pressure 128/59, respiratory rate 32, O2 saturation 100%, and BMI 40. GENERAL: Intubated and sedated, in prone position. NECK: Supple. HEENT: Facial mild edema, dependent. CHEST: With rales and decreased breath sounds. CARDIOVASCULAR: Regular rate and rhythm. Normal S1, S2. Tachycardic. ABDOMEN: Deferred. The patient is in prone position. EXTREMITIES: Warm. 1+ edema to both lower extremities. CARDIOVASCULAR MEDICATIONS: Reviewed. Lovenox 100 mg every 12 hours, hydralazine 10 mg q.4 hours as needed, enalapril at 1.25 mg every 6 hours as needed, lisinopril 40 mg daily, and metoprolol succinate 12.5 mg every 12 hours. STUDIES: Reviewed. Creatinine 0.5, potassium 3.3, and sodium 145. Hemoglobin 9.3, platelets 262. INR 1. AST 23, ALT 30, total bilirubin is 1. Alkaline phosphatase 97. ASSESSMENT AND PLAN: A 44-year-old man, presents with acute respiratory failure in a setting of coronavirus disease-19 infection, community-acquired pneumonia, hypertension, morbid obesity, anemia, and labile blood pressure reads with episodes of hypertension occurring intermittently and currently as early as yesterday. RECOMMENDATIONS: 1. Hydralazine scheduled 10 mg q.8 hours IV. 2. Metoprolol 5 mg IV q.6 hours p.r.n. systolic blood pressure more than 160 and increase scheduled p.o. metoprolol to 25 mg every 12 hours. Continue lisinopril 40 mg daily. 3. Can resume Lasix drip that seems slightly volume overloaded today. 4. Adjust sedation as needed to maintain RASS of -3. John Romero MD [facility]/MODL /[id number]
[2019-09-23] MEDS: MIDAZOLAM HCL 5MG/ML 10ML VIAL 100 ML IV PRN ×3 (12:53→20:31)
[2019-09-23] MEDS: HYDRALAZINE HCL 20 MG/ML VIAL IV SCH ×2 (15:16→20:33)
[2019-09-23] MEDS ORDERED: POTASSIUM CHLORIDE 20MEQ/100ML 100 ML IV ONE (15:30)
[2019-09-23] MEDS: PROPOFOL IV EMULSION 50 ML IV PRN ×3 (15:36→23:20)
--- NOTE | 2019-09-23 15:45 | NUR ---
Nutrition Intervention Note RD Recommendation(s) for Physician: - If unable to advance TF within 24-48 hrs, recommend TPN of 1080 ml/day (45 ml/hr), Dextrose 30% 500 ml/L, AA10% 500 ml/L, NaCl 35 mEq/L, KCl 30 mEq/L, Mg Sulfate 10 mEq/L, Ca Gluconate 4.6 mEq/L, KPhos 12 mmol/day, MVI, trace, thiamine. - As GI status allows, recommend Vital High Protein @ goal rate of 50 ml/hr (provides 1200 kcal and 105 gm protein). Remaining kcal provided by propofol. Water flushes per MD. Propofol provides an additional 554 kcal Plan of Care: RD following, TF and TPN rec's, monitor adequacy and tolerance Nutrition reason for involvement: follow up RD Assessment 09/22: Follow up. Pt remains intubated, sedated, and paralyzed. Pt requiring proning. TF infusing at 10 ml/hr and TPN weaned to 20 ml/hr. Chart reviewed. TF and TPN rec's provided pending ability to advance TF. Will continue to monitor. 09/18: Follow up. Chart reviewed. Pt remains intubated and sedated. Pt was started on tube feeding. Last recorded rate was 20 mL/hr this afternoon. Pt continues to receive TPN @ 42 mL/hr. Propofol rate is at 13.4 mL/hr (provides 354 kcal). Recommendations provided. Will continue to monitor 09/15: Follow up. Pt remains intubated, sedated on Propofol at 19.6 ml/hr, and paralyzed. Pt continues on TPN at 42 ml/hr, not meeting needs. Pt continues with persistent ileus and is receiving enemas and suppositories. Pt requiring daily proning 2/2 respiratory status. TF order remains, recommend NPO for now. TPN goal rec's provided, continues at 42 ml/hr. Chart reviewed. Will continue to monitor. 09/11: Follow up. Chart reviewed. Pt remains intubated and sedated. Pt is receiving 30 mL/hr of propofol per documentation which provides 792 lipid kcal. Tube feeding has been held due to abdominal distention and pt was started on TPN @ 42 mL/hr today. MD note indicates pt has an ileus. Recommendations provided. Will continue to monitor. 09/07: Follow up. Chart reviewed. Pt remains intubated and sedated. Pt is receiving 23.6 mL/hr of propofol per documentation which provides 623 lipid kcal. TF was at 20 mL/hr last night per chart. Per MD note, pts abdomen is distended and has not had a BM. Will continue to monitor. 09/04: Follow up. Pt remains intubated and sedated. Pt is receiving 9 mL/hr of propofol per documentation, which provides 238 lipid kcal. TF was at 20 mL/hr per chart yesterday. No additional administration rate is available. Will continue to monitor. 09/02: Follow up. Pt remains intubated, paralyzed, and sedated on Propofol and Versed. Pt requiring proning. TF rate at 10 ml/hr per TF documentation yesterday- inadequate EN currently, no additional EN administration available per chart. Recommend continuing EN while pt is proned by placing them in reverse Trendelenburg position. If unable to advance TF to goal rate, recommend considering PN. Chart reviewed. Will continue to monitor. 08/29: Initial encounter with patient. Pt is sedated and orally intubated. Pt was not able to provide a nutrition Hx at the time of visit. Unable to observe oral cavity or perform a nutrition focused physical exam. Jevity 1.2 infusing at 20ml hr with a goal of 50ml/hr. Propofol provides 1.1kcal/ml EN provides 576 kcals, 26.64g of protein, and 387.36ml of free H2O Principal Problems/Diagnoses: CoVID 19 pneumonia PMH:No significant medical Hx, overweight/obesity GI: LBM 09/22- liquid stool, distended abdomen Skin: Intact Labs: 09/22: Na 145, K 3.3, Cl 93, CO2 38, BUN 5, Cr 0.5, Gluc 129, POC 97-130 09/18: Na 146, K 3.6, Cr 0.50, BUN 13, Glu 100, Ca 7.7, Total Bili 1.6, AST 43 09/15: Na 148, K 3.8, Cl 102, CO2 38, BUN 15, Cr 0.57, Gluc 111 09/11: Na 148, BUN 18, Cr 0.51, Glu 120, Ca 8.0 09/07: Na 144, K 3.8, BUN 13, Cr 0.52, Glu 92, Ca 7.8 09/04: Na 141, K 4.0, BUN 21, Cr 0.63, Glu 122 09/02: Na 139, K 4.2, BUN 19, Cr 0.61, Gluc 101 Meds: vitamin D3, zinc sulfate, vitamin B12, protonix, colace, reglan IVF/Drips: TPN at 20 ml/hr, Propofol at 21 ml/hr, Rocuronium drip, Furosemide drip Ht: 67 in. Wt: 254.31 lb (09/22) 258 lbs (09/18) 254 lb (09/15)- questionable wt gain, 218 lbs (09/11/19) 219 lbs (08/28) 220 lbs (09/04) 215.31lb (09/02), 200.44lbs (08/29) BMI: 31.4kg/m2 (weight used- 200 lbs) IBW: 148 lbs Malnutrition Evaluation (08/30/2019) Unable to assess due to current isolation precautions. Will re-evaluate at follow-up as appropriate. Nutrition Prescription (Diet Order): TPN at 20 mL/hr and Vital AF at 10 mL/hr Estimated Nutritional Needs: [id number] calories/day (22-25 kcal/kg IBW) 101-135 g protein/day (1.5-2 g pro/kg IBW) Diet Adequacy: Not meeting calorie needs, Not meeting protein needs Diet Education Needs Assessment: Diet education not indicated. Nutrition Care Level: high Nutrition Diagnosis: Inadequate energy and protein intake related to intubation as evidenced by requiring alternative means of nutrition. Goal: Patient will meet 75-100% of estimated needs by follow up Progress: not progressing Interventions: Composition, Rate, Route, Recommended modifications Monitoring/Evaluation: Total energy intake, Total protein intake, Formula/Solution, Prescription medication, Weight change Signed: Mary Rodney RD, LD, [facility]
[2019-09-23] MEDS: MEROPENEM 1GM 100 ML IV SCH (17:38)
[2019-09-23] MEDS: METOPROLOL TARTRATE INJ 1 MG/ML VIAL IV PRN (17:39)
--- NOTE | 2019-09-23 19:45 | Progress Note ---
DATE: SUBJECTIVE: Mr. Miles remains short of breath, but stable. Weak, but stable. OBJECTIVE: VITAL SIGNS: Stable, afebrile. HEENT: He is not icteric. NECK: Supple. CHEST: Crackles bilateral. HEART: S1 and S2. No S3, S4, or murmur. ABDOMEN: Soft. This is day #30. IMPRESSION: Respiratory failure, COVID-19, aspiration pneumonia. Currently on Lovenox. His white count is trending up. We will put him back on antibiotic. Concern about aspiration. We will follow. MD MAYURI Taylor/AGNELA /[id number]
[2019-09-23] MEDS ORDERED: CENTRAL TPN FORMULA 1 BAG IV SCH (20:00)
[2019-09-23] MEDS: ACETAZOLAMIDE SODIUM 500 MG/VIAL IV SCH (20:33)
--- NOTE | 2019-09-23 20:50 | Progress Note ---
DATE: Pulmonary Critical Care Progress Note SUBJECTIVE: The patient has remained on the Lasix drip overnight. He has been negative over 3 L. He continues to have ventilation in the prone position. He is on a PRVC mode of ventilation at a rate of 32 with a tidal volume of 370. His FiO2 is set at 55% and his PEEP is set at 12. PHYSICAL EXAMINATION: VITAL SIGNS: The patient is afebrile. The blood pressure is 145/85 and the heart rate is 105. His saturation is 97% on the above settings. HEENT: Shows no facial swelling or erythema. There is an oral endotracheal tube in place. CARDIAC: Reveals regular rate and rhythm with normal S1 and S2. LUNGS: Auscultation of lungs reveals crackles at the bases. There is no wheezing. ABDOMEN: Soft. There is still some abdominal distention. He has some scrotal edema. There is decreased leg edema. LABORATORY DATA: The white blood cell count is 12.3 and hemoglobin is 9.3. The platelet count is 262. The potassium is 3.3, and the BUN to creatinine ratio is 5 to 0.5. Carbon dioxide is 38. Albumin is 2.9. IMPRESSION: 1. Acute respiratory failure. 2. COVID-19 and viral pneumonia. 3. Ileus. 4. Anemia, unspecified. 5. Thrombocytopenia. PLAN: 1. Continue Lasix drip. 2. Continue current ventilator settings. 3. Place the patient in the supine position. 4. Continue to monitor blood counts and renal function. 5. Continue to monitor and control blood pressure. 6. Continue to advance enteral feedings and wean off TPN. 7. Case discussed with mother, Cardiology, Nursing, Respiratory, and Infectious Disease. Greater than 35 minutes in direct critical care time. Maximilian Lowry MD [facility]/MODL /[id number]
--- NOTE | 2019-09-23 22:16 | Progress Note ---
DATE: 09/23/2019 SUBJECTIVE: Intubated, sedated. Cannot give history. OBJECTIVE: VITAL SIGNS: Temperature 98.4, pulse 128, respiratory rate 32, and blood pressure 125/75. GENERAL: Intubated, sedated. SKIN: No rash. HEENT: Endotracheal tube in place. LUNGS: Decreased. HEART: Tachycardic. Normal S1 and S2. GI: Abdomen is soft and distended. NEUROLOGIC: Sedated. PSYCHIATRIC: Sedated. LABORATORY DATA: Laboratory harrison, white count 12, hemoglobin 9, and platelet count 262. Creatinine 0.5 and potassium 3.3. ASSESSMENT AND PLAN: 1. Acute respiratory failure due to COVID-19 pneumonia. The patient has completed his antibiotic and Decadron. We will continue Lasix drip and continue vent support per international first officer. 2. Hypokalemia. We will replete. 3. Chronic blood loss anemia, stable. 4. Abdominal distention per GI. 5. Morbid obesity. 6. Fluid, electrolytes, and nutrition. We will continue TPN. 7. Gastrointestinal and deep venous thrombosis prophylaxis. We will continue Lovenox 100 mg twice a day per tennis ball cover cementer. Yiching MD ALIN Mcmillan/ANGELA /[id number]
[2019-09-23 22:31] LABS: ABG PCO2 88 mmHg (35-45); ABG PH 7.32 (7.35-7.45); ABG PO2 100 mmHg (80-105)
[2019-09-23 22:32] LABS: ABG HCO3 46 mmol/L (22-26); ABG TCO2 48
[2019-09-24] VITALS (25 sets, daily range): BP systolic 106–165; BP diastolic 53–84
[2019-09-24] MEDS: MEROPENEM 1GM 100 ML IV SCH ×3 (00:07→16:44)
[2019-09-24] MEDS: PROPOFOL IV EMULSION 50 ML IV PRN ×4 (01:33→17:00)
[2019-09-24] MEDS: ROCURONIUM BROMIDE 250 MG in SODIUM CHLORIDE 0.9% 250ML 225 ML IV PRN ×4 (01:33→19:33)
[2019-09-24] MEDS: EYE LUBRICANT OPTH OINT 3.5GM TUBE OP SCH ×4 (05:11→23:08)
[2019-09-24 05:16] LABS: BASOPHILS % 0.2 % (0.0-1.0); EOSINOPHILS # (AUTO) 0.3 (0.0-0.4); EOSINOPHILS % 3.6 % (0.0-6.0); HEMATOCRIT 28.6 % (38.2-49.6); HEMOGLOBIN 8.4 g/dL (14.0-18.0); LYMPHOCYTES # (AUTO) 0.5 (1.0-3.2); LYMPHOCYTES % 5.9 % (18.0-39.1); MEAN CORPUSCULAR HEMOGLOBIN 28.3 pg (28-32); MEAN CORPUSCULAR HGB CONC 29.4 g/dL (31-35); MEAN CORPUSCULAR VOLUME 96.3 fL (81-99); MONOCYTES # (AUTO) 0.8 (0.2-0.8); MONOCYTES % 8.5 % (4.4-11.3); NEUTROPHILS # (AUTO) 7.3 (2.1-6.9); NEUTROPHILS % 80.9 % (38.7-80.0); PLATELET COUNT 227 x10e3/uL (140-360); RED BLOOD COUNT 2.97 x10e6/uL (4.3-5.7); RED CELL DISTRIBUTION WIDTH 15.3 % (11.7-14.4)
[2019-09-24 05:46] LABS: ALANINE AMINOTRANSFERASE 24 IU/L (0-55); ALBUMIN 2.4 g/dL (3.5-5.0); ALBUMIN/GLOBULIN RATIO 0.7 (0.8-2.0); ALKALINE PHOSPHATASE 78 IU/L (40-150); BLOOD UREA NITROGEN 5 mg/dL (7-26); BUN/CREATININE RATIO 11 (6-25); CALCIUM 7.8 mg/dL (8.4-10.2); CHLORIDE 91 mmol/L (98-107); CREATININE, SERUM 0.46 mg/dL (0.72-1.25); EST GLOMERULAR FILTRATION RATE > 60 ML/MIN (60-); GLUCOSE 107 mg/dL (74-118); SODIUM 142 mmol/L (136-145)
[2019-09-24] MEDS: HYDRALAZINE HCL 20 MG/ML VIAL IV SCH ×3 (06:00→20:17)
[2019-09-24] MEDS: METOPROLOL TARTRATE INJ 1 MG/ML VIAL IV PRN ×2 (06:21→18:15)
[2019-09-24 06:26] LABS: CARBON DIOXIDE 42 mmol/L (22-29)
--- NOTE | 2019-09-24 08:20 | NUR ---
HEMATOLOGY/ONCOLOGY PROGRESS NOTE: HPI: Intubated and sedated in the COVID ICU. ROS: 14 point ROS unable to obtain secondary to patient intubated, sedated. PHYSICAL EXAM: Vitals: Reviewed as per EMR. PE limited due to COVID-19 contact precautions. LABORATORY DATA: 09/23/2019: WBC: 12.31 Hgb: 9.3 Hct: 31.2 Platelet: 262 BUN: 5 Creatinine: 0.50 Anti-Xa level: Pending RADIOLOGY DATA: CXR 09/22/19: No significant interval change Abd X-ray 09/22/19: NG tube with tip and side-port in the stomach. ASSESSMENT AND PLAN: Mr. Miles is a 42-year-old male with past medical history of hypertension who was admitted on 08/24/2019 due to cough and fever. Patient was found to be positive for COVID-19. Intubated due to worsening respiratory status. Patient has been treated with full-dose Lovenox since 09/08/19. Has required PRBC previously during admission. Patient now with dropping platelet count and recurrent anemia requiring PRBC transfusion. Hematology/Oncology has been consulted to assist with the management. 1. Thrombocytopenia: Likely secondary to consumption for infection. DIC panel showed no coagulopathy, elevated fibrinogen, does not appear DIC. Acute hepatitis panel negative. Abdominal US without evidence of liver cirrhosis or splenomegaly. HIT panel negative. Continue full-dose anticoagulation with Lovenox 1mg/kg subcu every 12 hours. Anti-Xa level pending to ensure therapeutic level as patient is obese. RESOLVED. Monitor. 2. Anemia: Anemia panel appears mixed picture AOCD + RODRIGUEZ with noted low B12 level. Macrocytosis probably combination of B12 deficiency and possibly also related to bone marrow suppression from viral infection. Ferritin mildly elevated, likely as acute phase reactant. Repeat ferritin significantly more elevated hold IV iron. Reticulocyte count and LDH mildly elevated, haptoglobin elevated, does not appear hemolysis. S/P 1 unit PRBC transfused on 09/15/19. Continue B12 IM daily. Hemoglobin trending down again. Will monitor closely as on anticoagulation. Transfuse if hemoglobin < 7. 3. COVID-19 PNA: In the ICU, pharmacologically sedated, paralyzed, intubated, on ventilator. On TPN. Undergoing intermittent proning. CXR consistent with multifocal PNA. S/P course of antibiotics and steroids. On IV lasix. Pulmonary and infectious disease on board. 4. Melena/ileus/abd distention: On Protonix IV. NGT in place verified on repeat abx x-ray. H/H improving. GI on board. 5. DVT proph: Full dose Lovenox as per #1. Above plan discussed with Dr. Lona Martinez. Thank you for the consult. I will be available. Please call with questions.
[2019-09-24] MEDS ORDERED: POTASSIUM CHLORIDE 20MEQ/15ML UDC NG ONE (08:30)
[2019-09-24] MEDS: ACETAZOLAMIDE SODIUM 500 MG/VIAL IV SCH ×2 (08:34→20:16)
[2019-09-24] MEDS: DOCUSATE SODIUM LIQD 100 MG/10 ML UDC NG SCH ×2 (08:34→16:44)
[2019-09-24] MEDS: PANTOPRAZOLE 40 MG 10ML VIAL IV SCH (08:34)
[2019-09-24] MEDS: CYANOCOBALAMIN INJ 1,000 MCG/ML VIAL IM SCH (08:34)
[2019-09-24] MEDS: CHOLECALCIFEROL 400 UNIT TAB PO SCH ×2 (08:35→20:16)
[2019-09-24] MEDS: METOPROLOL TARTRATE 25 MG TAB PO SCH ×2 (08:35→20:16)
[2019-09-24] MEDS: ENOXAPARIN SODIUM INJ 100 MG/ML SYR SC SCH ×2 (08:35→20:16)
[2019-09-24] MEDS: ZINC SULFATE 220 MG CAP PO SCH (08:35)
[2019-09-24 08:51] LABS: HYPOCHROMASIA SLIGHT
--- NOTE | 2019-09-24 08:58 | Progress Note ---
DATE: Pulmonary Critical Care Progress Note SUBJECTIVE: The patient was switched from the prone position to the supine position late last night around 10:00 p.m. He is now in the supine position and his oxygenation is deteriorated. He is requiring 100% oxygen. He received Lasix drip yesterday followed by Diamox. He is receiving enteral feedings. He is on Versed and fentanyl as well as rocuronium. PHYSICAL EXAMINATION: Saturations are currently 90% on a PRVC at a rate of 32 with a PEEP of 13 and FiO2 of 100%. His tidal volume is set at 370 and his rate is set at 32. HEENT: Shows no facial swelling or erythema. LYMPHATIC: Shows no submandibular, cervical or supraclavicular adenopathy. CARDIAC: Reveals a regular rate and rhythm with normal S1 and S2. LUNGS: Auscultation of lungs reveals crackles in the bases. There is no wheezing. ABDOMEN: Soft and nontender. There is no rebound or guarding. EXTREMITIES: Shows 2 to 3+ edema. There is scrotal edema. LABORATORY DATA: The patient currently has a normal BUN to creatinine. The potassium is low at 3.4. White blood cell count is normal. He has some mild anemia. RADIOGRAPHIC DATA: Chest x-ray shows bilateral infiltrates. IMPRESSION: 1. Acute respiratory failure. 2. Viral pneumonia and COVID-19 infection. 3. Total body edema. 4. Scrotal edema. 5. Anemia, unspecified. 6. Hypokalemia. PLAN: 1. Restart Lasix drip. 2. Prone patient. 3. Continue current ventilator settings and monitor ABG. 4. Continue enteral feedings. 5. Wean TPN. 6. Continue current sedation. 7. Case discussed with family, nursing, Respiratory, Infectious Disease and Cardiology. Greater than 35 minutes in direct critical care time apart from any procedures performed. Maximilian Lowry MD [facility]/MODL /[id number]
--- NOTE | 2019-09-24 09:23 | Diagnostic Imaging Report ---
EXAM: CHEST SINGLE (PORTABLE) DATE: 09/24/2019 6:40 AM INDICATION: Respiratory failure COMPARISON: 09/23/2019 FINDINGS: Endotracheal tube and left-sided PICC line identified in stable position. Enteric tube noted coursing below the diaphragm. Again identified are patchy interstitial and airspace opacities throughout the lungs bilaterally, unchanged from prior examination. There is no evidence for pneumothorax or significant volume pleural effusion. The cardiomediastinal silhouette is stable in appearance. No acute osseous abnormality is identified. IMPRESSION: No significant interval change from 09/23/2019. Signed by: Dr. Jerad Child MD on 09/24/2019 9:20 AM
[2019-09-24] MEDS: MIDAZOLAM HCL 5MG/ML 10ML VIAL 100 ML IV PRN ×3 (09:32→20:18)
--- NOTE | 2019-09-24 11:13 | Progress Note ---
DATE: 09/24/2019 Cardiology Progress Note SUBJECTIVE: Mr. Miles remained intubated and sedated. OBJECTIVE: VITAL SIGNS: Temperature 99.2, heart rate 113, on telemetry sinus tachycardia, blood pressure 116/53, respiratory rate 31, and O2 saturation 90%. BMI 39. GENERAL: Intubated and sedated. HEENT: Demonstrates face mask in place. ET tube in place. NECK: Supple. CHEST: With rales and decreased breath sounds. CARDIOVASCULAR: Regular rate and rhythm. Normal S1 and S2. ABDOMEN: Soft. Bowel sounds positive. EXTREMITIES: With significant worsening edema throughout. Normothermic. CARDIOVASCULAR MEDICATIONS: Reviewed. Metoprolol, lisinopril, and Lovenox. STUDIES: Reviewed. Creatinine 0.4, potassium 3, repletion advised. Hemoglobin 8.4 and platelets 227. ASSESSMENT AND PLAN: A 44-year-old man with [id number] respiratory failure on vent support, acute COVID-19 infection and community-acquired pneumonia, hypertension, anemia, morbid obesity, worsening edema. RECOMMEND: Initiate diuretics via Lasix drip and replete electrolytes as needed. Continue rest of cardiovascular medications. MD OPAL Del Valle/ANGELA /[id number]
[2019-09-24] MEDS: FUROSEMIDE INJ 100 MG in SODIUM CHLORIDE 0.9% 100 ML 90 ML IV SCH (12:05)
--- NOTE | 2019-09-24 14:22 | NUR ---
WOUND CARE CONSULT FOR 44 YO MALE HX OF SUDARSHAN DEANNA 9 ON STRICT PUP STATUS AND INTERVENTIONS AND ALTERNATING PRESSURE MATTRESS LABS: WBC-8.97 HGB_8.4 GLUCOSE-107 SKIN ASSESSMENT COMPLETE PATIENT PRESENTS WITH MASSIVE SWELLING TO PENIS AND SCROTAL AREA AND BILATERAL LOWER EXTREMITIES PARTIAL THICKNESS WOUND TO DORSAL PORTION OF PENIS AND POSTERIOR SCROTUM ALSO RIGHT SIDE AND BILATERAL KNEES ASSESSMENT AND MEASUREMENTS LISTED ON WOUND ASSESSMENT FORM RECOMMENDATIONS: NURSING TO CONTINUE TO MAINTAIN STRICT PUP STATUS AND INTERVENTIONS AND ALTERNATING PRESSURE MATTRESS NURSING TO CONTINUE TO ASSIST PATIENT NEEDED WITH MEALS AND NUTRITIONAL SUPPLEMENTS TO ENSURE PROPER REQUIREMENTS FOR HEALING NURSING TO CONTINUE TO OFFLOAD FEET AND HEELS NEEDED WITH PILLOW SUSPENSION WHEN IN BED NURSING TO CLEAN PARTIAL THICKNESS WOUND TO DORSAL PORTION OF PENIS AND POSTERIOR SCROTUM ALSO RIGHT SIDE AND BILATERAL KNEES WITH NORMAL SALINE DAILY AND APPLY VENELEX OINTMENT AND ALLEVYN FOAM DRESSING TO AREAS WHERE SKIN MAKES CONTACT
[2019-09-24] MEDS: FENTANYL 2000MCG/NS 250 250 ML IV PRN ×2 (15:00→20:18)
[2019-09-24] MEDS: BALSAM PERU/CASTOR OIL 60 GM OINT...G. TP SCH (15:45)
--- NOTE | 2019-09-24 17:29 | NUR ---
ABG drawn from arterial line. Wound care consult ordered by Dr. Max ash for penile and scrotal wounds. laborer pipeline assessed wounds and placed collagen dressing and foam dressings to wounds. Venelex ordered but was unable to be given due to patient already being in prone position. Dr. Casas gave orders to restart lasix drip. Patient was placed in prone position at 1100. Will continue to monitor the patient.
--- NOTE | 2019-09-24 17:32 | NUR ---
he patient was switched from the prone position to the supine position late last night around 10:00 p.m. He is now in the supine position and his oxygenation is deteriorated. He is requiring 100% oxygen. He received Lasix drip yesterday followed by Diamox. He is receiving enteral feedings. He is on Versed and fentanyl as well as rocuronium. PHYSICAL EXAMINATION: Saturations are currently 90% on a PRVC at a rate of 32 with a PEEP of 13 and FiO2 of 100%. His tidal volume is set at 370 and his rate is set at 32. HEENT: Shows no facial swelling or erythema. LYMPHATIC: Shows no submandibular, cervical or supraclavicular adenopathy. CARDIAC: Reveals a regular rate and rhythm with normal S1 and S2. LUNGS: Auscultation of lungs reveals crackles in the bases. There is no wheezing. ABDOMEN: Soft and nontender. There is no rebound or guarding. EXTREMITIES: Shows 2 to 3+ edema. There is scrotal edema. LABORATORY DATA: The patient currently has a normal BUN to creatinine. The potassium is low at 3.4. White blood cell count is normal. He has some mild anemia. RADIOGRAPHIC DATA: Chest x-ray shows bilateral infiltrates. [id number]
--- NOTE | 2019-09-24 19:00 | Progress Note ---
DATE: SUBJECTIVE: Mr. Miles remains in Intensive Care Unit, day #31. OBJECTIVE: VITAL SIGNS: Stable, afebrile. HEENT: Not icteric. NECK: Supple. CHEST: Few crackles. The patient remains on ventilator setting, all noted. LABORATORY DATA: Cultures are negative. ASSESSMENT AND PLAN: He is currently on meropenem and Lovenox. He is on Lasix drip and is on enteral feeding. Try to get a CT of the chest. Obtain sputum for cultures. MD MAYURI Taylor/MODL /[id number]
[2019-09-24 19:20] LABS: ABG HCO3 43 mmol/L (22-26); ABG PCO2 88 mmHg (35-45); ABG PO2 59 mmHg (80-105); ABG TCO2 46
[2019-09-24] MEDS ORDERED: CENTRAL TPN FORMULA 1 BAG IV SCH (20:00)
[2019-09-24 20:32] LABS: ABG PH 7.36 (7.35-7.45)
[2019-09-24 20:33] LABS: ABG HCO3 43 mmol/L (22-26); ABG PCO2 77 mmHg (35-45); ABG PO2 231 mmHg (80-105); ABG TCO2 46
--- NOTE | 2019-09-24 22:16 | Progress Note ---
DATE: 09/24/2019 SUBJECTIVE: Intubated, sedated, cannot give history. OBJECTIVE: VITAL SIGNS: Temperature 98.0, pulse 107, respiratory rate 32, blood pressure 147/77. GENERAL: Intubated, sedated. SKIN: No rash. HEENT: Endotracheal tube in place. LUNGS: Decreased breath sounds. HEART: Tachycardic. Normal S1, S2. ABDOMEN: Soft, distended. NEUROLOGIC: Sedated. PSYCHIATRIC: Sedated. LABORATORY: White count 9, hemoglobin 8, platelet count 227, creatinine 0.46. ASSESSMENT/PLAN: 1. Acute respiratory failure due to coronavirus disease-2019 pneumonia. The patient has completed his antibiotic and Decadron. We will continue Lasix drip per customer logistics manager and also continue vent management per customer logistics manager. 2. Chronic blood loss anemia, stable. 3. Abdominal distention. Plans per GI. 4. Morbid obesity. 5. Fluid, electrolytes, and nutrition. We will continue TPN. 6. Gastrointestinal and deep vein thrombosis prophylaxes. We will continue Lovenox 100 mg twice a day per research subject. MD ALIN Allred/REYESL /[id number]
[2019-09-25] VITALS (23 sets, daily range): BP systolic 92–172; BP diastolic 54–86
[2019-09-25] MEDS: ROCURONIUM BROMIDE 250 MG in SODIUM CHLORIDE 0.9% 250ML 225 ML IV PRN ×6 (00:11→22:17)
[2019-09-25] MEDS: MIDAZOLAM HCL 5MG/ML 10ML VIAL 100 ML IV PRN ×4 (00:11→23:52)
[2019-09-25] MEDS: MEROPENEM 1GM 100 ML IV SCH ×3 (00:12→16:04)
[2019-09-25] MEDS: FENTANYL 2000MCG/NS 250 250 ML IV PRN ×4 (03:17→23:54)
[2019-09-25] MEDS: FUROSEMIDE INJ 100 MG in SODIUM CHLORIDE 0.9% 100 ML 90 ML IV SCH (03:54)
[2019-09-25 05:03] LABS: BASOPHILS % 0.3 % (0.0-1.0); EOSINOPHILS # (AUTO) 0.4 (0.0-0.4); EOSINOPHILS % 4.9 % (0.0-6.0); HEMATOCRIT 27.8 % (38.2-49.6); HEMOGLOBIN 8.2 g/dL (14.0-18.0); LYMPHOCYTES # (AUTO) 0.7 (1.0-3.2); LYMPHOCYTES % 8.7 % (18.0-39.1); MEAN CORPUSCULAR HEMOGLOBIN 28.5 pg (28-32); MEAN CORPUSCULAR HGB CONC 29.5 g/dL (31-35); MEAN CORPUSCULAR VOLUME 96.5 fL (81-99); MONOCYTES # (AUTO) 0.7 (0.2-0.8); MONOCYTES % 8.9 % (4.4-11.3); NEUTROPHILS # (AUTO) 6.1 (2.1-6.9); NEUTROPHILS % 76.4 % (38.7-80.0); PLATELET COUNT 230 x10e3/uL (140-360); RED BLOOD COUNT 2.88 x10e6/uL (4.3-5.7); RED CELL DISTRIBUTION WIDTH 15.1 % (11.7-14.4)
[2019-09-25] MEDS: HYDRALAZINE HCL 20 MG/ML VIAL IV SCH ×3 (05:14→21:14)
[2019-09-25] MEDS: EYE LUBRICANT OPTH OINT 3.5GM TUBE OP SCH ×4 (05:15→21:14)
[2019-09-25 05:20] LABS: ALANINE AMINOTRANSFERASE 21 IU/L (0-55); ALBUMIN 2.2 g/dL (3.5-5.0); ALBUMIN/GLOBULIN RATIO 0.7 (0.8-2.0); ALKALINE PHOSPHATASE 80 IU/L (40-150); ANION GAP 10.4 mmol/L (8-16); BLOOD UREA NITROGEN 8 mg/dL (7-26); BUN/CREATININE RATIO 17 (6-25); CALCIUM 7.8 mg/dL (8.4-10.2); CARBON DIOXIDE 39 mmol/L (22-29); CHLORIDE 94 mmol/L (98-107); CREATININE, SERUM 0.46 mg/dL (0.72-1.25); EST GLOMERULAR FILTRATION RATE > 60 ML/MIN (60-); GLUCOSE 88 mg/dL (74-118); POTASSIUM 3.4 mmol/L (3.5-5.1); SODIUM 140 mmol/L (136-145)
[2019-09-25] MEDS: PROPOFOL IV EMULSION 50 ML IV PRN ×2 (07:24→13:04)
[2019-09-25] MEDS: ZINC SULFATE 220 MG CAP PO SCH (08:10)
[2019-09-25] MEDS: DOCUSATE SODIUM LIQD 100 MG/10 ML UDC NG SCH ×2 (08:10→16:04)
[2019-09-25] MEDS: CYANOCOBALAMIN INJ 1,000 MCG/ML VIAL IM SCH (08:10)
[2019-09-25] MEDS: PANTOPRAZOLE 40 MG 10ML VIAL IV SCH (08:10)
[2019-09-25] MEDS: CHOLECALCIFEROL 400 UNIT TAB PO SCH ×2 (08:10→21:14)
[2019-09-25] MEDS: METOPROLOL TARTRATE 25 MG TAB PO SCH ×2 (08:11→21:14)
[2019-09-25] MEDS: BALSAM PERU/CASTOR OIL 60 GM OINT...G. TP SCH (08:11)
[2019-09-25] MEDS: ENOXAPARIN SODIUM INJ 100 MG/ML SYR SC SCH (08:11)
--- NOTE | 2019-09-25 08:23 | NUR ---
HEMATOLOGY/ONCOLOGY PROGRESS NOTE: HPI: Intubated and sedated in the COVID ICU. ROS: 14 point ROS unable to obtain secondary to patient intubated, sedated. PHYSICAL EXAM: Vitals: Reviewed as per EMR. Tachycardic. PE not performed due to COVID-19 contact precautions. LABORATORY DATA: 09/25/2019: WBC: 7.97 Hgb: 8.2 Hct: 27.8 Platelet: 230 BUN: 8 Creatinine: 0.46 Anti-Xa level: Pending RADIOLOGY DATA: CXR 09/22/19: No significant interval change Abd X-ray 09/22/19: NG tube with tip and side-port in the stomach. ASSESSMENT AND PLAN: Mr. Miles is a 42-year-old male with past medical history of hypertension who was admitted on 08/24/2019 due to cough and fever. Patient was found to be positive for COVID-19. Intubated due to worsening respiratory status. Patient has been treated with full-dose Lovenox since 09/08/19. Has required PRBC previously during admission. Patient now with dropping platelet count and recurrent anemia requiring PRBC transfusion. Hematology/Oncology has been consulted to assist with the management. 1. Thrombocytopenia: Likely secondary to consumption for infection. DIC panel showed no coagulopathy, elevated fibrinogen, does not appear DIC. Acute hepatitis panel negative. Abdominal US without evidence of liver cirrhosis or splenomegaly. HIT panel negative. Continue full-dose anticoagulation with Lovenox 1mg/kg subcu every 12 hours. Anti-Xa level pending to ensure therapeutic level as patient is obese. Thrombocytopenia RESOLVED. Monitor. 2. Anemia: Anemia panel appears mixed picture AOCD + RODRIGUEZ with noted low B12 level. Macrocytosis probably combination of B12 deficiency and possibly also related to bone marrow suppression from viral infection. Ferritin mildly elevated, likely as acute phase reactant. Repeat ferritin significantly more elevated hold IV iron. Reticulocyte count and LDH mildly elevated, haptoglobin elevated, does not appear hemolysis. S/P 1 unit PRBC transfused on 09/15/19. Continue B12 IM daily. Hemoglobin stable. Will monitor closely as on anticoagulation. Transfuse if hemoglobin < 7. 3. COVID-19 PNA: In the ICU, pharmacologically sedated, paralyzed, intubated, on ventilator. On TPN. Undergoing intermittent proning. CXR without much change 09/24/19, attempting for chest CT per Pulmonary. S/P course of antibiotics and steroids. On IV lasix. Pulmonary and infectious disease on board. 4. Melena/ileus/abd distention: On Protonix IV. NGT in place verified on repeat abx x-ray. H/H monitoring per #2. GI on board. 5. DVT proph: Full dose Lovenox as per #1. Above plan discussed with Dr. Lona Martinez. Thank you for the consult. I will be available. Please call with questions.
--- NOTE | 2019-09-25 10:54 | Diagnostic Imaging Report ---
X-ray chest AP portable: Comparison: 09/24/2019 History: Respiratory failure. Findings: Endotracheal tube tip is seen just above the thoracic inlet. It should be advanced approximately 1.5 cm. A nasogastric tube is seen coursing down the expected past. A left arm route PICC line is seen with the tip overlying cavoatrial junction. There is no pneumothorax. There is possibility of bilateral pleural effusions. There is worsening of bilateral pulmonary infiltrates. Visualized skeletal structures unremarkable for possible left mid rib fracture. Upper abdomen is unremarkable. Impression: Worsening bilateral pulmonary infiltrates. Please see above regarding the endotracheal tube. Signed by: Abe Brooks MD on 09/25/2019 10:51 AM
--- NOTE | 2019-09-25 12:53 | Progress Note ---
DATE: SUBJECTIVE: The patient is now in the supine position. He has remained on a Lasix drip and is negative several liters over the past few days. He is currently on a PRVC mode of ventilation at a rate of 34 with a tidal volume of 370 and a PEEP of 10. His FiO2 is set at 60%. PHYSICAL EXAMINATION: VITAL SIGNS: Blood pressure is 159/80 and the saturation is still 97% on the above settings. Heart rate is 110. HEENT: Shows no facial swelling or erythema. The oropharynx is normal. LYMPHATIC: Shows no submandibular, cervical, or supraclavicular adenopathy. CARDIAC: Reveals regular rate and rhythm with normal S1 and S2. LUNGS: Auscultation of lungs reveals rhonchorous breath sounds bilaterally. There is no wheezing. ABDOMEN: Soft and nontender. There is no rebound or guarding. EXTREMITIES: Shows no leg edema or calf tenderness. There is no cyanosis or clubbing. SKIN: Shows no rashes. LABORATORY DATA: The white blood cell count is 7.9, hemoglobin is 8.2, and the platelet count is 230. The BUN to creatinine ratio is 8 to 0.4, the potassium is 3.4, and the other electrolytes are within normal limits. The albumin is 2.2. IMPRESSION: 1. Acute respiratory failure. 2. Viral pneumonia and COVID-19 infection. 3. Total body edema. 4. Scrotal edema. 5. Decubitus breakdown in the genitals. 6. Hypokalemia. 7. Anemia, unspecified. PLAN: 1. Continue current mode of ventilation and monitor ABGs. 2. Continue diuresis. 3. Continue enteral feedings and free water. 4. Continue Versed, fentanyl, and rocuronium. 5. Continue meropenem. 6. Continue Lovenox. 7. Case discussed with Respiratory, nursing, Cardiology, Internal Medicine, and administration. Greater than 35 minutes in direct critical care time. Maximilian Lowry MD [facility]/MODL /[id number]
[2019-09-25 13:36] LABS: ABG PH 7.32 (7.35-7.45)
[2019-09-25 13:37] LABS: ABG HCO3 41 mmol/L (22-26); ABG PCO2 80 mmHg (35-45); ABG PO2 145 mmHg (80-105); ABG TCO2 43
[2019-09-25] MEDS: METOPROLOL TARTRATE INJ 1 MG/ML VIAL IV PRN (13:40)
--- NOTE | 2019-09-25 17:33 | NUR ---
he patient is now in the supine position. He has remained on a Lasix drip and is negative several liters over the past few days. He is currently on a PRVC mode of ventilation at a rate of 34 with a tidal volume of 370 and a PEEP of 10. His FiO2 is set at 60%. PHYSICAL EXAMINATION: VITAL SIGNS: Blood pressure is 159/80 and the saturation is still 97% on the above settings. Heart rate is 110. HEENT: Shows no facial swelling or erythema. The oropharynx is normal. LYMPHATIC: Shows no submandibular, cervical, or supraclavicular adenopathy. CARDIAC: Reveals regular rate and rhythm with normal S1 and S2. LUNGS: Auscultation of lungs reveals rhonchorous breath sounds bilaterally. There is no wheezing. ABDOMEN: Soft and nontender. There is no rebound or guarding. EXTREMITIES: Shows no leg edema or calf tenderness. There is no cyanosis or clubbing. SKIN: Shows no rashes. LABORATORY DATA: The white blood cell count is 7.9, hemoglobin is 8.2, and the platelet count is 230. The BUN to creatinine ratio is 8 to 0.4, [id number]
[2019-09-25] MEDS ORDERED: POTASSIUM CHLORIDE 20MEQ/15ML UDC NG NR (19:00)
[2019-09-25 19:45] LABS: ABG HCO3 41 mmol/L (22-26); ABG PCO2 73 mmHg (35-45); ABG PH 7.36 (7.35-7.45); ABG PO2 58 mmHg (80-105); ABG TCO2 43
[2019-09-25] MEDS: ENOXAPARIN INJ 80 MG/0.8 ML SYR SC SCH (21:14)
--- NOTE | 2019-09-25 23:32 | Progress Note ---
DATE: 09/25/2019 SUBJECTIVE: Intubated, sedated, cannot give any history. OBJECTIVE: VITAL SIGNS: Temperature 100, pulse 131, respiratory rate 32, blood pressure 120/66. GENERAL: Sedated, intubated, unable to give history. SKIN: No rash. HEENT: Endotracheal tube in place. LUNGS: Decreased breath sounds. HEART: Tachycardic. Normal S1 and S2. GI: Abdomen is soft and distended. NEUROLOGIC: Sedated. PSYCHIATRIC: Sedated. LABORATORY DATA: White count 8, hemoglobin 8, and platelet count 230. Creatinine 0.46. ASSESSMENT AND PLAN: 1. Acute respiratory failure due to coronavirus disease 2019 pneumonia. The patient has completed his antibiotics and Decadron. We will continue Lasix drip and continue vent management per station installation supervisor. Infectious Disease specialist is following as well. 2. Chronic anemia, stable. 3. Abdominal distention per GI. 4. Morbid obesity. 5. Gastrointestinal and deep venous thrombosis prophylaxis, Lovenox per plaster lather. MD ALIN Allred/ANGELA /[id number]
[2019-09-26] VITALS (24 sets, daily range): BP systolic 96–174; BP diastolic 44–83
[2019-09-26] MEDS: MEROPENEM 1GM 100 ML IV SCH ×3 (01:00→17:01)
[2019-09-26] MEDS: FUROSEMIDE INJ 100 MG in SODIUM CHLORIDE 0.9% 100 ML 90 ML IV SCH ×2 (01:00→20:37)
[2019-09-26] MEDS: ROCURONIUM BROMIDE 250 MG in SODIUM CHLORIDE 0.9% 250ML 225 ML IV PRN ×6 (02:20→23:20)
[2019-09-26 03:32] LABS: BASOPHILS % 0.3 % (0.0-1.0); EOSINOPHILS # (AUTO) 0.2 (0.0-0.4); EOSINOPHILS % 2.5 % (0.0-6.0); HEMATOCRIT 28.6 % (38.2-49.6); HEMOGLOBIN 8.6 g/dL (14.0-18.0); LYMPHOCYTES % 10.2 % (18.0-39.1); MEAN CORPUSCULAR HEMOGLOBIN 28.7 pg (28-32); MEAN CORPUSCULAR HGB CONC 30.1 g/dL (31-35); MEAN CORPUSCULAR VOLUME 95.3 fL (81-99); MONOCYTES # (AUTO) 0.8 (0.2-0.8); MONOCYTES % 8.7 % (4.4-11.3); NEUTROPHILS # (AUTO) 7.4 (2.1-6.9); NEUTROPHILS % 77.5 % (38.7-80.0); PLATELET COUNT 252 x10e3/uL (140-360); RED CELL DISTRIBUTION WIDTH 15.2 % (11.7-14.4)
[2019-09-26 03:54] LABS: ALANINE AMINOTRANSFERASE 24 IU/L (0-55); ALBUMIN 2.2 g/dL (3.5-5.0); ALBUMIN/GLOBULIN RATIO 0.6 (0.8-2.0); ALKALINE PHOSPHATASE 99 IU/L (40-150); ANION GAP 13.7 mmol/L (8-16); BLOOD UREA NITROGEN 11 mg/dL (7-26); BUN/CREATININE RATIO 22 (6-25); CALCIUM 7.8 mg/dL (8.4-10.2); CARBON DIOXIDE 37 mmol/L (22-29); CHLORIDE 95 mmol/L (98-107); CREATININE, SERUM 0.49 mg/dL (0.72-1.25); EST GLOMERULAR FILTRATION RATE > 60 ML/MIN (60-); GLUCOSE 107 mg/dL (74-118); POTASSIUM 3.7 mmol/L (3.5-5.1); SODIUM 142 mmol/L (136-145)
[2019-09-26] MEDS ORDERED: POTASSIUM CHLORIDE 20MEQ/15ML UDC NG NR (05:00)
[2019-09-26] MEDS: EYE LUBRICANT OPTH OINT 3.5GM TUBE OP SCH ×3 (05:07→17:01)
[2019-09-26] MEDS: HYDRALAZINE HCL 20 MG/ML VIAL IV SCH ×3 (05:07→20:37)
[2019-09-26 07:11] LABS: ABG HCO3 40 mmol/L (22-26); ABG PCO2 72 mmHg (35-45); ABG PH 7.35 (7.35-7.45); ABG PO2 61 mmHg (80-105); ABG TCO2 42
[2019-09-26] MEDS: CYANOCOBALAMIN INJ 1,000 MCG/ML VIAL IM SCH (08:20)
[2019-09-26] MEDS: PANTOPRAZOLE 40 MG 10ML VIAL IV SCH (08:20)
[2019-09-26] MEDS: DOCUSATE SODIUM LIQD 100 MG/10 ML UDC NG SCH ×2 (08:20→17:01)
[2019-09-26] MEDS: BALSAM PERU/CASTOR OIL 60 GM OINT...G. TP SCH (08:21)
[2019-09-26] MEDS: METOPROLOL TARTRATE 25 MG TAB PO SCH ×2 (08:21→20:37)
[2019-09-26] MEDS: ENOXAPARIN INJ 80 MG/0.8 ML SYR SC SCH ×2 (08:21→20:36)
[2019-09-26] MEDS: CHOLECALCIFEROL 400 UNIT TAB PO SCH ×2 (08:21→20:36)
--- NOTE | 2019-09-26 08:39 | Diagnostic Imaging Report ---
Examination: Single AP view of the chest. COMPARISON: 09/25/2019 INDICATION: Respiratory failure DISCUSSION: Endotracheal tube is stable in position, with the tip projecting at the thoracic inlet, approximately 6.2 cm above the fred. Enteric tube and left upper extremity PICC are unchanged in position. When accounting for differences in technique, slight interval improvement in multifocal consolidations relative to 09/25/2019. Specifically, aeration of the right upper lung has improved. Stable cardiomediastinal contour. No acute osseous abnormalities. IMPRESSION: Stable position of support lines and tubes. As before, the endotracheal tube projects at the thoracic inlet, approximately 6.2 cm above the fred. Advancement by 2-3 cm should be considered. Slight interval improvement in multifocal airspace consolidations relative to 09/25/2019. Signed by: Dr. James Rios M.D. on 09/26/2019 8:36 AM
[2019-09-26] MEDS: MIDAZOLAM HCL 5MG/ML 10ML VIAL 100 ML IV PRN ×3 (09:00→20:35)
--- NOTE | 2019-09-26 09:38 | Progress Note ---
DATE: SUBJECTIVE: Mr. Miles remains in intensive care unit, day 22. REVIEW OF SYSTEMS: Remains on the ventilator. PHYSICAL EXAMINATION: GENERAL: Intubated, sedated. VITALS: Stable, afebrile. HEENT: Not icteric. NECK: Supple. CHEST: Crackles. The patient remains on Lasix drip. IMPRESSION: Respiratory failure, COVID-19, edema, decubitus ulcer. Continue with the supportive care as ordered. Continue with aspiration precaution. Discussed with the medical team. MD MAYURI Taylor/MODL /[id number]
--- NOTE | 2019-09-26 09:47 | Progress Note ---
DATE: SUBJECTIVE: The patient is still in the supine position this morning. He continues on a Lasix drip at 5 mg/hour. He is on a PRVC mode of ventilation, rate of 34 with a tidal volume of 370 and a PEEP of 12. His FiO2 is set at 75%. He is on Versed, fentanyl, and rocuronium. PHYSICAL EXAMINATION: VITAL SIGNS: The blood pressure is 120/70 and the pulse is 115. HEENT: Shows no facial swelling or erythema. LYMPHATIC: Shows no submandibular, cervical, or supraclavicular adenopathy. CARDIAC: Reveals regular rate and rhythm with normal S1 and S2. LUNGS: Auscultation of lungs reveals rhonchorous breath sounds bilaterally. There is no wheezing. ABDOMEN: Soft and nontender. There is no rebound or guarding. EXTREMITIES: Shows decreased leg edema. The patient still has some scrotal edema. LABORATORY DATA: White blood cell count is 9.5 and the hemoglobin is 8.6. The platelet count is 252. The BUN to creatinine ratio is 11 to 0.48 and other electrolytes are within normal limits. The albumin is 2.2. RADIOGRAPHIC DATA: Chest x-ray shows endotracheal tube slightly high as well as bilateral airspace opacities. IMPRESSION: 1. Acute respiratory failure. 2. Viral pneumonia and COVID-19 infection. 3. Total body edema. 4. Anemia, unspecified. 5. Decubitus breakdown of the genitalia. PLAN: 1. Advance endotracheal tube. 2. Continue diuresis. 3. Continue enteral feedings and free water. 4. Continue Versed, fentanyl, and rocuronium. 5. Continue current ventilation and monitor ABGs. 6. Continue Lovenox. 7. Case discussed with Respiratory, nursing, Infectious Disease, and Cardiology. Greater than 35 minutes in direct critical care time. Maximilian Lowry MD [facility]/MODL /[id number]
--- NOTE | 2019-09-26 10:55 | NUR ---
ETT advanced at this time per RT, now 26@ lip. Patient proned at this time, sats noted to be 96%. "Chair" documented in Turn Q2H flowsheet to denoted prone position.
[2019-09-26] MEDS: PROPOFOL IV EMULSION 10MG/ML 100 ML IV PRN ×4 (12:20→23:45)
[2019-09-26] MEDS: FENTANYL 2000MCG/NS 250 250 ML IV PRN ×2 (13:25→19:13)
--- NOTE | 2019-09-26 15:48 | NUR ---
HEMATOLOGY/ONCOLOGY PROGRESS NOTE: HPI: Intubated and sedated in the COVID ICU. ROS: 14 point ROS unable to obtain secondary to patient intubated, sedated. ETT advanced per CXR. PHYSICAL EXAM: Vitals: Reviewed as per EMR. Tachycardic. PE not performed due to COVID-19 contact precautions. LABORATORY DATA: 09/26/2019: WBC: 9.53 Hgb: 8.6 Hct: 28.6 Platelet: 252 BUN: 11 Creatinine: 0.49 Anti-Xa level: Pending RADIOLOGY DATA: CXR 09/26/2019: Stable position of support lines and tubes. As before, the endotracheal tube projects at the thoracic inlet, approximately 6.2 cm above the fred. Advancement by 2-3 cm should be considered. Slight interval improvement in multifocal airspace consolidations relative to 09/25/2019. ASSESSMENT AND PLAN: Mr. Miles is a 42-year-old male with past medical history of hypertension who was admitted on 08/24/2019 due to cough and fever. Patient was found to be positive for COVID-19. Intubated due to worsening respiratory status. Patient has been treated with full-dose Lovenox since 09/08/19. Has required PRBC previously during admission. Patient now with droppin g platelet count and recurrent anemia requiring PRBC transfusion. Hematology/Oncology has been consulted to assist with the management. 1. Thrombocytopenia: Likely secondary to consumption for infection. DIC panel showed no coagulopathy, elevated fibrinogen, does not appear DIC. Acute hepatitis panel negative. Abdominal US without evidence of liver cirrhosis or splenomegaly. HIT panel negative. Continue full-dose anticoagulation with Lovenox 1mg/kg subcu every 12 hours. Anti-Xa level pending to ensure therapeutic level as patient is obese. Thrombocytopenia RESOLVED. Monitor. 2. Anemia: Anemia panel appears mixed picture AOCD + RODRIGUEZ with noted low B12 level. Macrocytosis probably combination of B12 deficiency and possibly also related to bone marrow suppression from viral infection. Ferritin mildly elevated, likely as acute phase reactant. Repeat ferritin significantly more elevated hold IV iron. Reticulocyte count and LDH mildly elevated, haptoglobin elevated, does not appear hemolysis. S/P 1 unit PRBC transfused on 09/15/19. Continue B12 IM daily. Hemoglobin stable. Will monitor closely as on anticoagulation. Transfuse if hemoglobin < 7. 3. COVID-19 PNA: In the ICU, pharmacologically sedated and intubated with weaning off vent as tolerated, FiO2 75%. On TPN. Undergoing intermittent proning. CXR as above. S/P course of antibiotics and steroids. On IV lasix. Pulmonary and infectious disease on board. 4. Melena/ileus/abd distention: On Protonix IV. NGT in place. H/H monitoring per #2. GI on board. 5. DVT proph: Full dose Lovenox as per #1. Above plan discussed with Dr. Lona Martinez. Thank you for the consult. I will be available. Please call with questions.
--- NOTE | 2019-09-26 16:09 | NUR ---
Nutrition Intervention Note RD Recommendation(s) for Physician: -Recommend modifying tube feeding to Vital High Protein @ goal rate of 55 ml/hr (provides 1320 kcal and 116 gm protein). Remaining kcal provided by propofol. Water flushes per MD. Propofol provides an additional 205 kcal Plan of Care: RD following, TF rec's, monitor adequacy and tolerance Nutrition reason for involvement: follow up RD Assessment 09/25: Follow up. Chart reviewed. Pt remains intubated and sedated. Pt is receiving propofol at 7.8 mL/hr which provides 205 lipid kcal. TF is infusing at 20 mL/hr. Recommend modifying tube feed formula to Vital High Protein at this time. Will continue to monitor. 09/22: Follow up. Pt remains intubated, sedated, and paralyzed. Pt requiring proning. TF infusing at 10 ml/hr and TPN weaned to 20 ml/hr. Chart reviewed. TF and TPN rec's provided pending ability to advance TF. Will continue to monitor. 09/18: Follow up. Chart reviewed. Pt remains intubated and sedated. Pt was started on tube feeding. Last recorded rate was 20 mL/hr this afternoon. Pt continues to receive TPN @ 42 mL/hr. Propofol rate is at 13.4 mL/hr (provides 354 kcal). Recommendations provided. Will continue to monitor 09/15: Follow up. Pt remains intubated, sedated on Propofol at 19.6 ml/hr, and paralyzed. Pt continues on TPN at 42 ml/hr, not meeting needs. Pt continues with persistent ileus and is receiving enemas and suppositories. Pt requiring daily proning 2/2 respiratory status. TF order remains, recommend NPO for now. TPN goal rec's provided, continues at 42 ml/hr. Chart reviewed. Will continue to monitor. 09/11: Follow up. Chart reviewed. Pt remains intubated and sedated. Pt is receiving 30 mL/hr of propofol per documentation which provides 792 lipid kcal. Tube feeding has been held due to abdominal distention and pt was started on TPN @ 42 mL/hr today. MD note indicates pt has an ileus. Recommendations provided. Will continue to monitor. 09/07: Follow up. Chart reviewed. Pt remains intubated and sedated. Pt is receiving 23.6 mL/hr of propofol per documentation which provides 623 lipid kcal. TF was at 20 mL/hr last night per chart. Per MD note, pts abdomen is distended and has not had a BM. Will continue to monitor. 09/04: Follow up. Pt remains intubated and sedated. Pt is receiving 9 mL/hr of propofol per documentation, which provides 238 lipid kcal. TF was at 20 mL/hr per chart yesterday. No additional administration rate is available. Will continue to monitor. 09/02: Follow up. Pt remains intubated, paralyzed, and sedated on Propofol and Versed. Pt requiring proning. TF rate at 10 ml/hr per TF documentation yesterday- inadequate EN currently, no additional EN administration available per chart. Recommend continuing EN while pt is proned by placing them in reverse Trendelenburg position. If unable to advance TF to goal rate, recommend considering PN. Chart reviewed. Will continue to monitor. 08/29: Initial encounter with patient. Pt is sedated and orally intubated. Pt was not able to provide a nutrition Hx at the time of visit. Unable to observe oral cavity or perform a nutrition focused physical exam. Jevity 1.2 infusing at 20ml hr with a goal of 50ml/hr. Propofol provides 1.1kcal/ml EN provides 576 kcals, 26.64g of protein, and 387.36ml of free H2O Principal Problems/Diagnoses: CoVID 19 pneumonia PMH: No significant medical Hx, overweight/obesity GI: LBM 09/22- large, round abdomen Skin: Intact Labs: 09/25: Na 142, K 3.7, BUN 11, Cr 0.49, Ca 7.8, Glu 107 09/22: Na 145, K 3.3, Cl 93, CO2 38, BUN 5, Cr 0.5, Gluc 129, POC 97-130 09/18: Na 146, K 3.6, Cr 0.50, BUN 13, Glu 100, Ca 7.7, Total Bili 1.6, AST 43 09/15: Na 148, K 3.8, Cl 102, CO2 38, BUN 15, Cr 0.57, Gluc 111 09/11: Na 148, BUN 18, Cr 0.51, Glu 120, Ca 8.0 09/07: Na 144, K 3.8, BUN 13, Cr 0.52, Glu 92, Ca 7.8 09/04: Na 141, K 4.0, BUN 21, Cr 0.63, Glu 122 09/02: Na 139, K 4.2, BUN 19, Cr 0.61, Gluc 101 Meds: rocuronium, fentanyl, propofol, metoprolol, vitamin D, antibiotic, vitamin B12, protonix, colace, furosemide, metoprolol Ht: 67 in. Wt: 253.5 lbs (09/25) 254.31 lb (09/22) 258 lbs (09/18) 254 lb (09/15)- questionable wt gain, 218 lbs (09/11/19) 219 lbs (08/28) 220 lbs (09/04) 215.31lb (09/02), 200.44lbs (08/29) BMI: 31.4kg/m2 (weight used- 200 lbs) IBW: 148 lbs Malnutrition Evaluation (08/30/2019) Unable to assess due to current isolation precautions. Will re-evaluate at follow-up as appropriate. Nutrition Prescription (Diet Order): Vital AF @ 20 mL/hr Estimated Nutritional Needs: [id number] calories/day (22-25 kcal/kg IBW) 101-135 g protein/day (1.5-2 g pro/kg IBW) Diet Adequacy: Not meeting calorie needs, Not meeting protein needs Diet Education Needs Assessment: Diet education not indicated. Nutrition Care Level: high Nutrition Diagnosis: Inadequate energy and protein intake related to intubation as evidenced by requiring alternative means of nutrition. Goal: Patient will meet 75-100% of estimated needs by follow up Progress: goal not met Interventions: Composition, Rate, Route, Recommended modifications Monitoring/Evaluation: Total energy intake, Total protein intake, Formula/Solution, Prescription medication, Weight change Signed: Nina Reese, RD, LD
--- NOTE | 2019-09-26 16:45 | NUR ---
progress note infectious diseases seen and examined labs seen med reviewed The patient is now in the supine position. He has remained on a Lasix drip and is negative several liters over the past few days. He is currently on a PRVC mode of ventilation at a rate of 34 with a tidal volume of 370 and a PEEP of 10. His FiO2 is set at 60%. PHYSICAL EXAMINATION: VITAL SIGNS: Blood pressure is 159/80 and the saturation is still 97% on the above settings. Heart rate is 110. HEENT: Shows no facial swelling or erythema. The oropharynx is normal. LYMPHATIC: Shows no submandibular, cervical, or supraclavicular adenopathy. CARDIAC: Reveals regular rate and rhythm with normal S1 and S2. LUNGS: Auscultation of lungs reveals rhonchorous breath sounds bilaterally. There is no wheezing. ABDOMEN: Soft and nontender. There is no rebound or guarding. EXTREMITIES: Shows no leg edema or calf tenderness. There is no cyanosis or clubbing. SKIN: Shows no rashes. LABORATORY DATA: The white blood cell count is 7.9, hemoglobin is 8.2, and the platelet count is 230. The BUN to creatinine ratio is 8 to 0.4, the potassium is 3.4, and the other electrolytes are within normal limits. The albumin is 2.2. IMPRESSION: 1. Acute respiratory failure. 2. Viral pneumonia and COVID-19 infection. 3. Total body edema. 4. Scrotal edema. 5. Decubitus breakdown in the genitals. 6. Hypokalemia. 7. Anemia, unspecified. cont same please see orders
[2019-09-26 20:37] LABS: ABG HCO3 40 mmol/L (22-26); ABG PCO2 65 mmHg (35-45); ABG PO2 99 mmHg (80-105); ABG TCO2 43
--- NOTE | 2019-09-26 21:06 | Progress Note ---
DATE: 09/26/2019 SUBJECTIVE: Intubated, sedated, cannot give any history. OBJECTIVE: VITAL SIGNS: Temperature 98.6, pulse 114, respiratory rate 32, blood pressure 126/50. GENERAL: Intubated, sedated. SKIN: No rash. HEENT: Endotracheal tube in place. LUNGS: Decreased. HEART: Tachycardic. Normal S1, S2. GI: Abdomen is soft, distended. NEUROLOGIC: Sedated. PSYCHIATRIC: Sedated. LABORATORY DATA: White count 9.5, hemoglobin 8.6, platelet count 252, creatinine 0.49. ASSESSMENT AND PLAN: 1. Acute respiratory failure due to coronavirus disease-19 pneumonia. The patient has completed his antibiotics and Decadron per Infectious Disease specialist. We will continue Lasix drip and vent management per pillow agent. 2. Chronic anemia, stable. 3. Abdominal distention, per GI. 4. Morbid obesity. 5. Gastrointestinal and deep vein thrombosis prophylaxis. Lovenox per manufacturing quality manager. MD ALIN Allred/ANGELA /[id number]
[2019-09-27] VITALS (23 sets, daily range): BP systolic 96–163; BP diastolic 41–83
[2019-09-27] MEDS: EYE LUBRICANT OPTH OINT 3.5GM TUBE OP SCH ×4 (00:11→18:35)
[2019-09-27] MEDS: MEROPENEM 1GM 100 ML IV SCH ×2 (00:11→08:42)
[2019-09-27] MEDS: MIDAZOLAM HCL 5MG/ML 10ML VIAL 100 ML IV PRN ×4 (03:30→19:41)
[2019-09-27] MEDS: ROCURONIUM BROMIDE 250 MG in SODIUM CHLORIDE 0.9% 250ML 225 ML IV PRN ×4 (04:20→19:40)
[2019-09-27] MEDS: PROPOFOL IV EMULSION 10MG/ML 100 ML IV PRN ×4 (04:30→19:41)
[2019-09-27] MEDS: HYDRALAZINE HCL 20 MG/ML VIAL IV SCH ×3 (04:49→20:35)
[2019-09-27 05:34] LABS: BASOPHILS # (AUTO) 0.1 (0.0-0.1); BASOPHILS % 0.6 % (0.0-1.0); EOSINOPHILS # (AUTO) 0.4 (0.0-0.4); EOSINOPHILS % 5.2 % (0.0-6.0); HEMATOCRIT 28.2 % (38.2-49.6); HEMOGLOBIN 8.3 g/dL (14.0-18.0); LYMPHOCYTES # (AUTO) 0.8 (1.0-3.2); LYMPHOCYTES % 10.3 % (18.0-39.1); MEAN CORPUSCULAR HEMOGLOBIN 28.7 pg (28-32); MEAN CORPUSCULAR HGB CONC 29.4 g/dL (31-35); MEAN CORPUSCULAR VOLUME 97.6 fL (81-99); MONOCYTES # (AUTO) 0.8 (0.2-0.8); MONOCYTES % 10.2 % (4.4-11.3); NEUTROPHILS # (AUTO) 5.8 (2.1-6.9); NEUTROPHILS % 72.2 % (38.7-80.0); PLATELET COUNT 220 x10e3/uL (140-360); RED BLOOD COUNT 2.89 x10e6/uL (4.3-5.7); RED CELL DISTRIBUTION WIDTH 15.2 % (11.7-14.4)
[2019-09-27] MEDS: METOPROLOL TARTRATE INJ 1 MG/ML VIAL IV PRN (05:38)
[2019-09-27 06:01] LABS: ALANINE AMINOTRANSFERASE 30 IU/L (0-55); ALBUMIN 2.2 g/dL (3.5-5.0); ALBUMIN/GLOBULIN RATIO 0.6 (0.8-2.0); ALKALINE PHOSPHATASE 113 IU/L (40-150); ANION GAP 11.8 mmol/L (8-16); BLOOD UREA NITROGEN 9 mg/dL (7-26); BUN/CREATININE RATIO 20 (6-25); CALCIUM 7.7 mg/dL (8.4-10.2); CARBON DIOXIDE 38 mmol/L (22-29); CHLORIDE 94 mmol/L (98-107); CREATININE, SERUM 0.46 mg/dL (0.72-1.25); EST GLOMERULAR FILTRATION RATE > 60 ML/MIN (60-); GLUCOSE 103 mg/dL (74-118); SODIUM 141 mmol/L (136-145)
[2019-09-27 06:03] LABS: POTASSIUM 2.8 mmol/L (3.5-5.1)
[2019-09-27] MEDS ORDERED: POTASSIUM CHLORIDE 20 MEQ TAB CR PO STA (07:02)
--- NOTE | 2019-09-27 08:04 | Diagnostic Imaging Report ---
EXAMINATION: CHEST SINGLE (PORTABLE) INDICATION: Respiratory failure. COMPARISON: Multiple prior chest radiographs including most recent on 09/26/2019. FINDINGS: TUBES and LINES: Stable support line and tubes. Endotracheal tube which terminates approximately 5 cm above the fred. Nasogastric tube which courses below the diaphragm and beyond field of view. Left-sided PICC which terminates in the distal SVC. LUNGS: No significant interval change in multifocal patchy airspace opacities throughout both lungs. PLEURA: Probable trace left pleural effusion. HEART AND MEDIASTINUM: The cardiomediastinal silhouette is obscured by patchy airspace opacities. BONES AND SOFT TISSUES: No acute osseous or soft tissue finding. UPPER ABDOMEN: No free air under the diaphragm. IMPRESSION: 1. No significant interval change in multifocal airspace consolidative opacities. 2. Stable support lines and tubes as above. Signed by: Peter Gibbs MD on 09/27/2019 8:01 AM
[2019-09-27] MEDS: DOCUSATE SODIUM LIQD 100 MG/10 ML UDC NG SCH ×2 (08:42→18:35)
[2019-09-27] MEDS: PANTOPRAZOLE 40 MG 10ML VIAL IV SCH (08:42)
[2019-09-27] MEDS: CYANOCOBALAMIN INJ 1,000 MCG/ML VIAL IM SCH (08:42)
[2019-09-27] MEDS: ENOXAPARIN INJ 80 MG/0.8 ML SYR SC SCH ×2 (08:42→20:35)
[2019-09-27] MEDS: BALSAM PERU/CASTOR OIL 60 GM OINT...G. TP SCH (08:42)
[2019-09-27] MEDS: CHOLECALCIFEROL 400 UNIT TAB PO SCH ×2 (08:42→20:35)
[2019-09-27] MEDS: METOPROLOL TARTRATE 25 MG TAB PO SCH ×2 (09:00→20:34)
[2019-09-27] MEDS: FENTANYL 2000MCG/NS 250 250 ML IV PRN ×2 (09:56→18:34)
[2019-09-27 10:39] LABS: ABG PH 7.37 (7.35-7.45)
[2019-09-27 10:40] LABS: ABG HCO3 41 mmol/L (22-26); ABG PCO2 70 mmHg (35-45); ABG PO2 82 mmHg (80-105); ABG TCO2 43
[2019-09-27 13:06] LABS: ABG HCO3 40 mmol/L (22-26); ABG PCO2 75 mmHg (35-45); ABG PH 7.34 (7.35-7.45); ABG PO2 61 mmHg (80-105); ABG TCO2 43
--- NOTE | 2019-09-27 14:03 | Progress Note ---
DATE: Pulmonary Critical Care Progress Note. SUBJECTIVE: The patient remains on Lasix drip at 5 mg. He is switched to pressure control on his ventilator. He remains on Versed, fentanyl and rocuronium. PHYSICAL EXAMINATION: VITAL SIGNS: The patient is afebrile. The blood pressure is 100/50 and the pulse is 106. HEENT: No facial swelling or erythema. LYMPHATIC: No submandibular, cervical, or supraclavicular adenopathy. CARDIAC: Regular rhythm with normal S1 and S2. LUNGS: Auscultation of the lungs reveals rhonchorous breath sounds bilaterally. There is no wheezing. ABDOMEN: Soft, nontender. There is no rebound or guarding. EXTREMITIES: No leg edema or calf tenderness. There is some scrotal edema. LABORATORY DATA: White blood cell count is 8.06 and hemoglobin is 8.3. The platelet count is 220,000. Potassium is 2.8 and the BUN to creatinine ratio is normal. The other electrolytes within normal limits. The albumin is 2.2. RADIOGRAPHIC DATA: Chest x-ray shows bilateral infiltrates. IMPRESSION: 1. Acute respiratory failure. 2. Viral pneumonia and COVID-19 infection. 3. Anemia, unspecified. 4. Scrotal edema. 5. Decubitus breakdown in the genitalia area. PLAN: 1. Continue Versed, fentanyl and rocuronium. 2. Place the patient in the prone position. 3. Continue to monitor ABGs. 4. Continue enteral feedings and free water. 5. Continue Lovenox. Greater than 35 minutes in direct critical care time. Maximilian Lowry MD [facility]/MOD[facility] /[id number]
--- NOTE | 2019-09-27 17:00 | NUR ---
HEMATOLOGY/ONCOLOGY PROGRESS NOTE: HPI: Intubated and sedated in the COVID ICU. ROS: 14 point ROS unable to obtain secondary to patient intubated, sedated. PHYSICAL EXAM: Vitals: Reviewed as per EMR. Tachycardic. PE not performed due to COVID-19 contact precautions. LABORATORY DATA: 09/27/2019: WBC: 8.06 Hgb: 8.3 Hct: 28.2 Platelet: 220 BUN: 9 Creatinine: 0.46 Anti-Xa level: 0.3 RADIOLOGY DATA: CXR 09/27/2019: 1. No significant interval change in multifocal airspace consolidative opacities. 2. Stable support lines and tubes as above. ASSESSMENT AND PLAN: Mr. Miles is a 42-year-old male with past medical history of hypertension who was admitted on 08/24/2019 due to cough and fever. Patient was found to be positive for COVID-19. Intubated due to worsening respiratory status. Patient has been treated with full-dose Lovenox since 09/08/19. Has required PRBC previously during admission. Patient now with dropping platelet count and recurrent anemia requiring PRBC transfusion. Hematology/Oncology has been consulted to assist with the management. 1. Thrombocytopenia: Likely secondary to consumption for infection. DIC panel showed no coagulopathy, elevated fibrinogen, does not appear DIC. Acute hepatitis panel negative. Abdominal US without evidence of liver cirrhosis or splenomegaly. HIT panel negative. Continue full-dose anticoagulation with Lovenox 1mg/kg subcu every 12 hours. Anti-Xa level slightly subtherapeutic for lovenox in obese patient, defer to pharmacy for dose adjustment. Thrombocytopenia RESOLVED. Monitor. 2. Anemia: Anemia panel appears mixed picture AOCD + RODRIGUEZ with noted low B12 level. Macrocytosis probably combination of B12 deficiency and possibly also related to bone marrow suppression from viral infection. Ferritin mildly elevated, likely as acute phase reactant. Repeat ferritin significantly more elevated hold IV iron. Reticulocyte count and LDH mildly elevated, haptoglobin elevated, does not appear hemolysis. S/P 1 unit PRBC transfused on 09/15/19. Continue B12 IM daily per GI on board. Hemoglobin stable. Will monitor closely as on anticoagulation. Transfuse if hemoglobin < 7. 3. COVID-19 PNA: In the ICU, pharmacologically sedated and intubated with weaning off vent as tolerated, on pressure control. On TPN. Undergoing intermittent proning. CXR as above. S/P course of antibiotics and steroids. On I V lasix. Pulmonary and infectious disease on board. 4. Melena/ileus/abd distention: On Protonix IV. NGT in place. H/H monitoring per #2. GI on board. 5. DVT proph: Full dose Lovenox as per #1. Above plan discussed with Dr. Lona Martinez. Thank you for the consult. I will be available. Please call with questions.
[2019-09-27] MEDS: FUROSEMIDE INJ 100 MG in SODIUM CHLORIDE 0.9% 100 ML 90 ML IV SCH (18:35)
--- NOTE | 2019-09-27 19:25 | Progress Note ---
DATE: SUBJECTIVE: Mr. Miles admitted to the intensive care unit, intubated, this is day #34. The patient is 44-year-old male, comes in with COVID-19 respiratory failure, remains on Lasix drip, remains on ventilator, remains on fentanyl and rocuronium. PHYSICAL EXAMINATION: VITAL SIGNS: The patient is afebrile, intubated today, but have generalized edema. HEENT: He is not icteric. NECK: Supple. CHEST: Crackles. HEART: S1 and S2. ABDOMEN: Soft. IMPRESSION: Respiratory failure viral pneumonia admission, this is day #34. So, I think he is not infectious anymore, anemia, scrotal edema and generalized edema. Prognosis remains very poor. We will discontinue his meropenem. Continue with supportive care. Continue with anticoagulation and diuresis. He is extremely ill and his prognosis is extremely poor. Should he spike fever, we will get blood cultures, sputum cultures, urine cultures. We will follow. MD MAYURI Taylor/MODL /[id number]
--- NOTE | 2019-09-27 21:56 | Progress Note ---
DATE: 09/27/2019 Cardiology Progress Note SUBJECTIVE: Mr. Miles remains intubated and sedated in prone position currently. OBJECTIVE: VITAL SIGNS: Temperature 99.8, heart rate 112, sinus tachycardia on telemetry, blood pressure 108/57, respiratory rate 31, and O2 saturation 100%. BMI today 39. GENERAL: Intubated, sedated from position. HEENT: ET tube in place. Facial edema. NECK: Supple. CHEST: With rales and decreased breath sounds. CARDIOVASCULAR: Regular rate and rhythm. Normal S1 and S2. Distant heart sounds. ABDOMEN: Exam deferred, the patient in prone from position. GENITOURINARY: Has scrotal edema. EXTREMITIES: Euthermic and edematous 1+. CARDIOVASCULAR MEDICATIONS: Reviewed. On furosemide IV drip, metoprolol succinate 25 mg every 12 hours, and IV tartrate 5 q.4 hours as needed, Lovenox 80 mg q.12 hours, and hydralazine p.r.n. LABORATORY DATA: Studies reviewed potassium 2.8, repletion ordered by primary service. Creatinine 0.4, and glucose 103. White blood cells 8, hemoglobin 8.3, and platelets 220. ASSESSMENT AND PLAN: 44-year-old man with community-acquired pneumonia with COVID-19 infection, acute respiratory failure with prolonged ventilatory support, volume overload, anemia, hypertension, morbid obesity, and sinus tachycardia. RECOMMENDATIONS: Continue diuretics and frequent repositioning. Continue rate control and blood pressure optimization with current medication. John Romero MD [facility] /[id number]
--- NOTE | 2019-09-27 22:41 | Progress Note ---
DATE: 09/27/2019 SUBJECTIVE: Cannot give any history due to intubation and sedation. OBJECTIVE: VITAL SIGNS: Temperature 97.3, pulse 114, respiratory rate 34, blood pressure 102/55. GENERAL: Sedated, intubated. SKIN: No rash. HEENT: Endotracheal tube in place. HEART: Tachycardic. Normal S1, S2. LUNGS: Decreased breath sounds. ABDOMEN/GI: Soft, distended. NEUROLOGIC: Sedated. PSYCHIATRIC: Sedated. LABORATORY DATA: Laboratory harrison, white count 8, hemoglobin 8, platelet count 220, creatinine 0.46. ASSESSMENT AND PLAN: 1. Acute respiratory failure due to coronavirus disease 2019 pneumonia. The patient has completed his antibiotic and Decadron per Infectious Disease specialist. We will continue Lasix drip and vent management per functional skills tutor. 2. Chronic anemia, stable. He did have a total of 2 units of blood transfusion during this hospital stay so far. 3. Abdominal distention, slowly getting better. Plan per GI. 4. Morbid obesity. 5. Gastrointestinal deep venous thrombosis prophylaxis. Continue Lovenox per clerk telegraph service. MD ALIN Allred/ANGELA /[id number]
[2019-09-28] VITALS (24 sets, daily range): BP systolic 100–203; BP diastolic 45–84
[2019-09-28] MEDS: PROPOFOL IV EMULSION 10MG/ML 100 ML IV PRN ×3 (01:18→21:35)
[2019-09-28] MEDS: MIDAZOLAM HCL 5MG/ML 10ML VIAL 100 ML IV PRN ×4 (01:19→21:35)
[2019-09-28] MEDS: ROCURONIUM BROMIDE 250 MG in SODIUM CHLORIDE 0.9% 250ML 225 ML IV PRN ×7 (01:20→22:49)
[2019-09-28 04:31] LABS: ABG PH 7.45 (7.35-7.45)
[2019-09-28 04:32] LABS: ABG HCO3 42 mmol/L (22-26); ABG PCO2 61 mmHg (35-45); ABG PO2 73 mmHg (80-105); ABG TCO2 44
[2019-09-28 05:00] LABS: BASOPHILS # (AUTO) 0.1 (0.0-0.1); BASOPHILS % 0.6 % (0.0-1.0); EOSINOPHILS # (AUTO) 0.6 (0.0-0.4); EOSINOPHILS % 5.6 % (0.0-6.0); HEMATOCRIT 29.4 % (38.2-49.6); HEMOGLOBIN 8.8 g/dL (14.0-18.0); LYMPHOCYTES # (AUTO) 0.9 (1.0-3.2); LYMPHOCYTES % 8.3 % (18.0-39.1); MEAN CORPUSCULAR HEMOGLOBIN 29.5 pg (28-32); MEAN CORPUSCULAR HGB CONC 29.9 g/dL (31-35); MEAN CORPUSCULAR VOLUME 98.7 fL (81-99); MONOCYTES # (AUTO) 1.2 (0.2-0.8); MONOCYTES % 10.3 % (4.4-11.3); NEUTROPHILS # (AUTO) 8.2 (2.1-6.9); NEUTROPHILS % 73.9 % (38.7-80.0); PLATELET COUNT 243 x10e3/uL (140-360); RED BLOOD COUNT 2.98 x10e6/uL (4.3-5.7); RED CELL DISTRIBUTION WIDTH 15.3 % (11.7-14.4)
[2019-09-28] MEDS: EYE LUBRICANT OPTH OINT 3.5GM TUBE OP SCH ×5 (05:35→22:24)
[2019-09-28] MEDS: HYDRALAZINE HCL 20 MG/ML VIAL IV SCH ×3 (05:35→21:34)
[2019-09-28 05:37] LABS: ALANINE AMINOTRANSFERASE 36 IU/L (0-55); ALBUMIN 2.2 g/dL (3.5-5.0); ALBUMIN/GLOBULIN RATIO 0.6 (0.8-2.0); ALKALINE PHOSPHATASE 124 IU/L (40-150); BLOOD UREA NITROGEN 6 mg/dL (7-26); BUN/CREATININE RATIO 14 (6-25); CALCIUM 7.9 mg/dL (8.4-10.2); CHLORIDE 92 mmol/L (98-107); CREATININE, SERUM 0.44 mg/dL (0.72-1.25); EST GLOMERULAR FILTRATION RATE > 60 ML/MIN (60-); GLUCOSE 109 mg/dL (74-118); SODIUM 142 mmol/L (136-145)
[2019-09-28 05:58] LABS: CARBON DIOXIDE 41 mmol/L (22-29)
[2019-09-28] MEDS: METOPROLOL TARTRATE 25 MG TAB PO SCH ×2 (09:00→21:34)
[2019-09-28 09:08] LABS: ABG HCO3 43 mmol/L (22-26); ABG PCO2 84 mmHg (35-45); ABG PH 7.32 (7.35-7.45); ABG PO2 138 mmHg (80-105); ABG TCO2 46
[2019-09-28] MEDS: CYANOCOBALAMIN INJ 1,000 MCG/ML VIAL IM SCH (11:10)
[2019-09-28] MEDS: PANTOPRAZOLE 40 MG 10ML VIAL IV SCH (11:10)
[2019-09-28] MEDS: CHOLECALCIFEROL 400 UNIT TAB PO SCH ×2 (11:10→21:34)
[2019-09-28] MEDS: ENOXAPARIN INJ 80 MG/0.8 ML SYR SC SCH ×2 (11:10→21:34)
[2019-09-28] MEDS: DOCUSATE SODIUM LIQD 100 MG/10 ML UDC NG SCH ×2 (11:10→18:38)
[2019-09-28] MEDS: BALSAM PERU/CASTOR OIL 60 GM OINT...G. TP SCH (11:10)
--- NOTE | 2019-09-28 11:56 | Diagnostic Imaging Report ---
EXAMINATION: CHEST SINGLE (PORTABLE) INDICATION: Respiratory failure. COMPARISON: Multiple prior Chest x-rays including most recent on on 09/15/2019. FINDINGS: TUBES and LINES: Stable ET tube which terminates approximately 4 cm above the fred, subdiaphragmatic nasogastric tube which courses beyond field of view and left PICC which terminates in the distal SVC. LUNGS: Low lung volumes with results in apparent worsening of multifocal patchy airspace opacities throughout both lungs. PLEURA: Probable trace bilateral pleural effusion. HEART AND MEDIASTINUM: The cardiomediastinal silhouette is obscured by patchy airspace opacities. BONES AND SOFT TISSUES: No acute osseous or soft tissue finding. UPPER ABDOMEN: No free air under the diaphragm. IMPRESSION: 1. Low lung volumes which results in apparent worsening of multifocal patchy airspace opacities. Accounting for differences in technique and lung volumes, there are no significant interval changes. 2. Probable trace bilateral pleural effusion. 3. Stable support lines and tubes as above. IMPRESSION: No acute thoracic radiographic abnormality. Signed by: Peter Gibbs MD on 09/28/2019 11:52 AM
--- NOTE | 2019-09-28 12:27 | Progress Note ---
DATE: SUBJECTIVE: The patient is currently on a Lasix drip. He was switched from a prone position to the supine position and is not saturating as well. His FiO2 had to be increased from 55% to 90%. He remains on Versed and fentanyl as well as rocuronium. PHYSICAL EXAMINATION: VITAL SIGNS: Blood pressure is 111/50 and the heart rate is 110-120. The PRVC is set at 34 with a tidal volume of 370 and FiO2 of 90% and PEEP of 12. HEENT: Shows no facial swelling or erythema. LYMPHATIC: Shows no submandibular, cervical, or supraclavicular adenopathy. CARDIAC: Reveals regular rate and rhythm with normal S1, S2. LUNGS: Auscultation of lungs reveals rhonchorous breath sounds bilaterally. There is no wheezing. ABDOMEN: Soft and nontender. There is no rebound or guarding. EXTREMITIES: Shows some leg edema. There 3 to 4+ scrotal edema. LABORATORY DATA: White blood cell count is 11.1 and hemoglobin is 8.8, the platelet count is 243. BUN to creatinine ratio is 6 to 0.44 and the other electrolytes are within normal limits. The albumin is 2.2. RADIOGRAPHIC DATA: Chest x-ray shows bilateral airspace opacities. IMPRESSION: 1. Acute respiratory failure. 2. Viral pneumonia and COVID-19 infection. 3. Scrotal edema. 4. Decubitus breakdown and genitalia area. 5. Anemia. PLAN: 1. Continue Versed, fentanyl and rocuronium. 2. Place patient in the prone position. 3. Continue to monitor ABGs. 4. Continue enteral feedings and free water. 5. Continue Lovenox. 6. Add albumin. Maximilian Lowry MD [facility]/REYES[facility] /[id number]
--- NOTE | 2019-09-28 13:43 | NUR ---
INFECTIOUS DISEASE PROGRESS NOTE DR NUNES SUBJECTIVE: Mr. Miles admitted to the intensive care unit, intubated, this is day #35 The patient is 44-year-old male, comes in with COVID-19 respiratory failure, remains on Lasix drip, remains on ventilator, remains on fentanyl and rocuronium. PHYSICAL EXAMINATION: VITAL SIGNS: The patient is afebrile, intubated today, but have generalized edema. HEENT: He is not icteric. NECK: Supple. CHEST: Crackles. HEART: S1 and S2. ABDOMEN: Soft. LABS: REVIEWED RADIOLOGY: REVIEWED IMPRESSION: Respiratory failure COVD 19 viral pneumonia scrotal edema PLAN PT is not infectious anymore Prognosis remains very poor. Continue with supportive care. Continue with anticoagulation and diuresis. He is extremely ill and his prognosis is extremely poor. Should he spike fever, we will get blood cultures, sputum cultures, urine cultures. PT SEEN AND EVALUATED BY DR NUNES
[2019-09-28] MEDS: ALBUMIN 25% 25GM 100ML 0.25 GM/ML BTL IV SCH ×2 (14:09→21:34)
[2019-09-28] MEDS: FENTANYL 2000MCG/NS 250 250 ML IV PRN ×2 (14:27→21:35)
[2019-09-28] MEDS: FUROSEMIDE INJ 100 MG in SODIUM CHLORIDE 0.9% 100 ML 90 ML IV SCH (16:49)
[2019-09-28 20:50] LABS: ABG HCO3 41 mmol/L (22-26); ABG PCO2 61 mmHg (35-45); ABG PH 7.44 (7.35-7.45); ABG PO2 56 mmHg (80-105); ABG TCO2 43
--- NOTE | 2019-09-28 22:09 | Progress Note ---
DATE: 09/28/2019 Cardiology Progress Note SUBJECTIVE: Intubated and sedated. OBJECTIVE: VITAL SIGNS: Temperature 99.4, heart rate 110, on telemetry, sinus tachycardia, blood pressure 121/56, O2 saturation 90%. BMI 39. GENERAL: Intubated sedated. NECK: Supple. CHEST: Rales and decreased breath sounds. CARDIOVASCULAR: Regular rate and rhythm. Normal S1, S2. ABDOMEN: Soft. Bowel sounds positive. EXTREMITIES: With edema throughout. Scrotal edema and breakdown of genital area. CARDIOVASCULAR MEDICATIONS: Reviewed. Hydralazine 10 mg q.8 hours, Lovenox 80 mg q.12 hours, albumin and Lasix IV, and metoprolol tartrate 25 q.12 hours. LABORATORY DATA: Reviewed. Potassium 3, bicarbonate 41, creatinine 0.4. White blood cells 11, hemoglobin 8.8, platelets 243. ASSESSMENT AND PLAN: A 44-year-old man with COVID-19 infection, community-acquired pneumonia, volume overload, acute respiratory failure requiring prolonged ventilatory support, anemia, and scrotal edema and skin breakdown. RECOMMENDATIONS: Continue current cardiovascular medications. Continue diuresis and albumin to assist with mobilization of extravascular fluid in supine decubitus position today of a genitourinary area. From a cardiovascular standpoint, blood pressure remains stable. John Romero MD [facility]/REYES[facility] /[id number]
--- NOTE | 2019-09-28 23:35 | Progress Note ---
DATE: 09/28/2019 SUBJECTIVE: Intubated, sedated, cannot give any history. OBJECTIVE: VITAL SIGNS: Temperature 99.4, pulse 110, respiratory rate 36, blood pressure 121/56. GENERAL: Sedated, intubated. SKIN: No rash. HEENT: Endotracheal tube in place. LUNGS: Decreased breath sounds. HEART: Tachycardic. Normal S1, S2. GI: Abdomen is soft, distended. NEUROLOGIC: Sedated. PSYCHIATRIC: Sedated. LABORATORY DATA: White count 11, hemoglobin 9, platelet count 243, creatinine 0.44. ASSESSMENT AND PLAN: 1. Acute respiratory failure due to coronavirus disease-19 pneumonia. The patient has completed his antibiotic and Decadron per Infectious Disease specialist. We will continue Lasix drip and vent management per service operator. 2. Chronic anemia, stable. 3. Abdominal distention, slowly getting better per GI. 4. Morbid obesity. 5. Gastrointestinal and deep vein thrombosis prophylaxis. Lovenox per air traffic instructor. MD ALIN Allred/ANGELA /[id number]
[2019-09-29] VITALS (28 sets, daily range): BP systolic 107–148; BP diastolic 51–79
[2019-09-29] MEDS: ALBUMIN 25% 25GM 100ML 0.25 GM/ML BTL IV SCH (00:43)
[2019-09-29] MEDS: PROPOFOL IV EMULSION 10MG/ML 100 ML IV PRN ×5 (00:52→23:26)
[2019-09-29] MEDS: ROCURONIUM BROMIDE 250 MG in SODIUM CHLORIDE 0.9% 250ML 225 ML IV PRN ×5 (03:15→21:40)
[2019-09-29] MEDS: FENTANYL 2000MCG/NS 250 250 ML IV PRN (03:16)
[2019-09-29 05:02] LABS: BASOPHILS % 0.3 % (0.0-1.0); EOSINOPHILS # (AUTO) 0.4 (0.0-0.4); EOSINOPHILS % 5.6 % (0.0-6.0); HEMATOCRIT 23.7 % (38.2-49.6); HEMOGLOBIN 7.1 g/dL (14.0-18.0); LYMPHOCYTES # (AUTO) 0.6 (1.0-3.2); LYMPHOCYTES % 8.7 % (18.0-39.1); MEAN CORPUSCULAR HEMOGLOBIN 27.6 pg (28-32); MONOCYTES # (AUTO) 0.6 (0.2-0.8); NEUTROPHILS # (AUTO) 5.5 (2.1-6.9); NEUTROPHILS % 76.2 % (38.7-80.0); PLATELET COUNT 216 x10e3/uL (140-360); RED BLOOD COUNT 2.57 x10e6/uL (4.3-5.7)
[2019-09-29] MEDS: HYDRALAZINE HCL 20 MG/ML VIAL IV SCH ×3 (05:03→21:29)
[2019-09-29] MEDS: EYE LUBRICANT OPTH OINT 3.5GM TUBE OP SCH ×3 (05:03→17:18)
[2019-09-29 05:08] LABS: MEAN CORPUSCULAR VOLUME 92.2 fL (81-99)
[2019-09-29 05:51] LABS: ALANINE AMINOTRANSFERASE 30 IU/L (0-55); ALBUMIN 2.3 g/dL (3.5-5.0); ALBUMIN/GLOBULIN RATIO 0.8 (0.8-2.0); ALKALINE PHOSPHATASE 96 IU/L (40-150); ANION GAP 14.4 mmol/L (8-16); BLOOD UREA NITROGEN 5 mg/dL (7-26); BUN/CREATININE RATIO 12 (6-25); CALCIUM 7.6 mg/dL (8.4-10.2); CARBON DIOXIDE 40 mmol/L (22-29); CHLORIDE 90 mmol/L (98-107); CREATININE, SERUM 0.42 mg/dL (0.72-1.25); EST GLOMERULAR FILTRATION RATE > 60 ML/MIN (60-); GLUCOSE 89 mg/dL (74-118); SODIUM 142 mmol/L (136-145)
[2019-09-29 06:04] LABS: POTASSIUM 2.4 mmol/L (3.5-5.1)
[2019-09-29] MEDS ORDERED: POTASSIUM CHLORIDE 20MEQ/100ML 200 ML ONE (06:46)
[2019-09-29] MEDS ORDERED: POTASSIUM CHLORIDE 20MEQ/100ML 200 ML IV ONE ×2 (07:20→09:30)
[2019-09-29] MEDS: MIDAZOLAM HCL 5MG/ML 10ML VIAL 100 ML IV PRN ×3 (07:58→17:58)
[2019-09-29] MEDS: CYANOCOBALAMIN INJ 1,000 MCG/ML VIAL IM SCH (08:28)
[2019-09-29] MEDS: ENOXAPARIN INJ 80 MG/0.8 ML SYR SC SCH ×2 (08:29→21:28)
[2019-09-29] MEDS: DOCUSATE SODIUM LIQD 100 MG/10 ML UDC NG SCH ×2 (08:35→17:18)
[2019-09-29] MEDS: CHOLECALCIFEROL 400 UNIT TAB PO SCH ×2 (08:36→21:28)
[2019-09-29] MEDS: METOPROLOL TARTRATE 25 MG TAB PO SCH ×2 (08:36→21:28)
[2019-09-29] MEDS: PANTOPRAZOLE 40 MG 10ML VIAL IV SCH (08:38)
[2019-09-29] MEDS: BALSAM PERU/CASTOR OIL 60 GM OINT...G. TP SCH (08:38)
[2019-09-29] MEDS ORDERED: MAGNESIUM SULFATE 2GM/50ML IV ONE (09:30)
[2019-09-29 09:56] LABS: ABG HCO3 44 mmol/L (22-26); ABG PCO2 42 mmHg (35-45); ABG PH 7.63 (7.35-7.45); ABG PO2 84 mmHg (80-105); ABG TCO2 45
--- NOTE | 2019-09-29 10:13 | Progress Note ---
DATE: SUBJECTIVE: The patient remains on a Lasix drip at 5 mg. He is in the prone position. He is receiving enteral feedings. He is on Versed, fentanyl, and rocuronium. PHYSICAL EXAMINATION: VITAL SIGNS: The blood pressure is 135/66. The pulse is 98. The current ventilator settings are pressure control with a PEEP of 10 and pressure above PEEP of 28. His FiO2 is set at 70% and his rate is set at 32. His tidal volumes at those settings are in the 400 range. The patient also has a nasogastric tube. There is an oral endotracheal tube in place. CARDIAC: Reveals regular rate and rhythm with a normal S1 and S2. LUNGS: Auscultation of lungs reveals crackles at the bases. There is no wheezing. ABDOMEN: Soft and nontender. There is no rebound or guarding. EXTREMITIES: Shows no leg edema or calf tenderness. There is no cyanosis or clubbing. SKIN: Shows no rashes. NEUROLOGICAL: Shows the patient to be sedated. LABORATORY DATA: The white blood cell count is 7.27 and the hemoglobin is 7.1. The platelet count is 216. The potassium is 2.4 and the BUN to creatinine ratio is 5 to 0.42. Albumin is 2.3. IMPRESSION: 1. Acute respiratory failure. 2. Viral pneumonia and COVID-19 infection. 3. Metabolic alkalosis. 4. Anemia. 5. Scrotal edema. PLAN: 1. The patient's minute ventilation has been decreased to compensate for the metabolic alkalosis. Repeat ABG is pending at 1300. 2. The patient will begin Diamox in addition to Lasix for the metabolic alkalosis. 3. Continue to ventilate the patient in the prone position. 4. Continue wound care precautions to prevent further breakdown of the genitalia. 5. Continue Lovenox. 6. Continue Versed, fentanyl, and rocuronium. 7. Replace potassium. Greater than 35 minutes in direct critical care time. Maximilian Lowry MD [facility]/MOD[facility] /[id number]
[2019-09-29] MEDS ORDERED: MAGNESIUM SULFATE 2GM/50ML 50 ML IV ONE (10:30)
[2019-09-29] MEDS: FUROSEMIDE INJ 100 MG in SODIUM CHLORIDE 0.9% 100 ML 90 ML IV SCH (11:31)
--- NOTE | 2019-09-29 11:43 | Progress Note ---
DATE: 09/29/2019 Cardiology Progress Note SUBJECTIVE: Remains intubated, sedated, in prone position. OBJECTIVE: VITAL SIGNS: Temperature 97.5, heart rate 98, blood pressure 135/66, respiratory rate 35, and O2 saturation 100%. GENERAL: Intubated, sedated, in prone position. HEENT: Dry mucosa. NECK: Supple. CHEST: With decreased breath sounds. CARDIOVASCULAR: Regular rate and rhythm. Normal S1 and S2. ABDOMEN: Deferred, as the patient in prone position. EXTREMITIES: Euthermic with edema. CARDIOVASCULAR MEDICATIONS: Reviewed. Potassium, and magnesium 2 g IV q.8 hours, metoprolol tartrate 5 q.6 hours, metoprolol tartrate 25 q.12 hours p.o. STUDIES: Reviewed. Potassium 3.4, bicarbonate 40, sodium 132, creatinine 3.4, and glucose 89. White blood cell 7, hemoglobin 10, and platelets 216. ASSESSMENT AND PLAN: A 44-year-old man with acute respiratory failure, COVID-19 infection, community-acquired pneumonia, hypertension, morbid obesity, hyperkalemia, volume overloaded. RECOMMEND: Continue diuretic. Monitor H and H. Replete electrolytes. Continue cardiovascular medications. MD OPAL Del Valle/ANGELA /[id number] MTDD
[2019-09-29] MEDS ORDERED: POTASSIUM CHLORIDE 20MEQ/15ML UDC NG ONE (13:00)
[2019-09-29 13:44] LABS: ABG HCO3 42 mmol/L (22-26); ABG PCO2 60 mmHg (35-45); ABG PH 7.45 (7.35-7.45); ABG PO2 143 mmHg (80-105); ABG TCO2 44
[2019-09-29] MEDS: ACETAZOLAMIDE SODIUM 500 MG/VIAL IV SCH ×2 (15:11→21:40)
--- NOTE | 2019-09-29 16:20 | NUR ---
NFECTIOUS DISEASE PROGRESS NOTE DR NUNES day n 36 discussed with medical team SUBJECTIVE: Mr. Miles admitted to the intensive care unit, intubated, this is day #35 The patient is 44-year-old male, comes in with COVID-19 respiratory failure, remains on Lasix drip, remains on ventilator, remains on fentanyl and rocuronium. PHYSICAL EXAMINATION: VITAL SIGNS: The patient is afebrile, intubated today, but have generalized edema. HEENT: He is not icteric. NECK: Supple. CHEST: Crackles. HEART: S1 and S2. ABDOMEN: Soft. LABS: REVIEWED RADIOLOGY: REVIEWED IMPRESSION: Respiratory failure COVD 19 viral pneumonia scrotal edema cont same
--- NOTE | 2019-09-29 17:39 | NUR ---
HEMATOLOGY/ONCOLOGY PROGRESS NOTE: HPI: Patient remains intubated in ICU. Discussed with RN, no new events. No signs of bleeding. ROS: 14 point ROS unable to obtain secondary to patient intubated, sedated. PHYSICAL EXAM: Vitals: Reviewed as per EMR. Tachycardic. PE not performed due to COVID-19 contact precautions. LABORATORY DATA: 09/29/2019: WBC: 7.27 Hgb: 7.1 Hct: 23.7 Platelet: 216 BUN: 5 Cr: 0.42 RADIOLOGY DATA: CXR 09/27/2019: 1. No significant interval change in multifocal airspace consolidative opacities. 2. Stable support lines and tubes as above. ASSESSMENT AND PLAN: Mr. Miles is a 42-year-old male with past medical history of hypertension who was admitted on 08/24/2019 due to cough and fever. Patient was found to be positive for COVID-19. Intubated due to worsening respiratory status. Patient has been treated with full-dose Lovenox since 09/08/19. Has required PRBC previously during admission. Patient now with dropping platelet count and recurrent anemia requiring PRBC transfusion. Hematology/Oncology has been consulted to assist with the management. 1. Thrombocytopenia: Likely secondary to consumption for infection. DIC panel showed no coagulopathy, elevated fibrinogen, does not appear DIC. Acute hepatitis panel negative. Abdominal US without evidence of liver cirrhosis or splenomegaly. HIT panel negative. Continue full-dose anticoagulation with Lovenox 1mg/kg subcu every 12 hours. Anti-Xa level slightly subtherapeutic for lovenox in obese patient, defer to pharmacy for dose adjustment. Thrombocytopenia RESOLVED. Monitor. 2. Anemia: Anemia panel appears mixed picture AOCD + RODRIGUEZ with noted low B12 level. Macrocytosis probably combination of B12 deficiency and possibly also related to bone marrow suppression from viral infection. Ferritin mildly elevated, likely as acute phase reactant. Repeat ferritin significantly more elevated hold IV iron. Reticulocyte count and LDH mildly elevated, haptoglobin elevated, does not appear hemolysis. S/P 1 unit PRBC transfused on 09/15/19. Continue B12 IM daily per GI on board. Hemoglobin drop? No bleeding per nursing staff. Given fluid overload, will recheck labs in the morning and transfuse if hemoglobin <7. Will monitor closely as on anticoagulation. 3. COVID-19 PNA: In the ICU, pharmacologically sedated and intubated with weaning off vent as tolerated, on pressure control. On TPN. Undergoing intermittent proning. CXR as above. S/P course of antibiotics and steroids. On I V lasix. Pulmonary and infectious disease on board. 4. Melena/ileus/abd distention: On Protonix IV. NGT in place. H/H monitoring per #2. GI on board. 5. DVT proph: Full dose Lovenox as per #1. Above plan discussed with Dr. Lona Martinez. Thank you for the consult. I will be available. Please call with questions.
[2019-09-29] MEDS ORDERED: SODIUM CHLORIDE 0.9% 500ML 500 ML ONE (20:26)
[2019-09-29 20:35] LABS: ABG HCO3 38 mmol/L (22-26); ABG PCO2 55 mmHg (35-45); ABG PH 7.45 (7.35-7.45); ABG PO2 101 mmHg (80-105); ABG TCO2 40
--- NOTE | 2019-09-29 21:40 | Progress Note ---
DATE: 09/29/2019 SUBJECTIVE: Intubated, sedated, cannot give any history. OBJECTIVE: VITAL SIGNS: Temperature 97.8, pulse 104, respiratory rate 32, and blood pressure 109/56. GENERAL: Intubated, sedated. SKIN: No rash. HEENT: Endotracheal tube in place. LUNGS: Decreased breath sounds. HEART: Tachycardic. Normal S1 and S2. GI: Abdomen is soft and slightly distended. NEUROLOGIC: Sedated. PSYCHIATRIC: Sedated. LABORATORY DATA: Laboratory harrison, white count 7, hemoglobin 7, and platelet count 216. Creatinine 0.4. ASSESSMENT AND PLAN: 1. Acute respiratory failure due to COVID-19 pneumonia. We will continue Lasix drip and vent management per customer relationship specialist. His hemoglobin is lower today. We will monitor for the need for transfusion. 2. Abdominal distention per GI. 3. Morbid obesity. 4. Gastrointestinal and deep venous thrombosis prophylaxis. Continue Lovenox 80 mg twice a day per mortgage loan assistant. MD ALIN Allred/ANGELA /[id number]
[2019-09-30] VITALS (25 sets, daily range): BP systolic 85–132; BP diastolic 42–76
[2019-09-30] MEDS: FENTANYL CITRATE INJ 2,000 MCG in SODIUM CHLORIDE 0.9% 250ML 210 ML IV PRN ×2 (00:28→06:58)
[2019-09-30] MEDS: EYE LUBRICANT OPTH OINT 3.5GM TUBE OP SCH ×5 (00:42→23:29)
[2019-09-30] MEDS: MIDAZOLAM HCL 5MG/ML 10ML VIAL 100 ML IV PRN (00:49)
[2019-09-30] MEDS: ROCURONIUM BROMIDE 250 MG in SODIUM CHLORIDE 0.9% 250ML 225 ML IV PRN ×2 (02:28→08:15)
[2019-09-30] MEDS: PROPOFOL IV EMULSION 10MG/ML 100 ML IV PRN ×3 (03:00→22:09)
[2019-09-30] MEDS: HYDRALAZINE HCL 20 MG/ML VIAL IV SCH ×3 (05:42→22:21)
[2019-09-30] MEDS: ACETAZOLAMIDE SODIUM 500 MG/VIAL IV SCH ×2 (05:42→13:44)
[2019-09-30 05:45] LABS: BASOPHILS # (AUTO) 0.1 (0.0-0.1); BASOPHILS % 0.6 % (0.0-1.0); EOSINOPHILS # (AUTO) 0.5 (0.0-0.4); EOSINOPHILS % 5.7 % (0.0-6.0); HEMOGLOBIN 8.1 g/dL (14.0-18.0); LYMPHOCYTES # (AUTO) 0.6 (1.0-3.2); LYMPHOCYTES % 7.8 % (18.0-39.1); MEAN CORPUSCULAR HEMOGLOBIN 29.7 pg (28-32); MEAN CORPUSCULAR HGB CONC 31.2 g/dL (31-35); MEAN CORPUSCULAR VOLUME 95.2 fL (81-99); MONOCYTES # (AUTO) 0.6 (0.2-0.8); MONOCYTES % 7.3 % (4.4-11.3); NEUTROPHILS # (AUTO) 6.3 (2.1-6.9); NEUTROPHILS % 77.6 % (38.7-80.0); PLATELET COUNT 200 x10e3/uL (140-360); RED BLOOD COUNT 2.73 x10e6/uL (4.3-5.7); RED CELL DISTRIBUTION WIDTH 15.6 % (11.7-14.4)
[2019-09-30] MEDS ORDERED: POTASSIUM CHLORIDE 20MEQ/15ML UDC NG ONE (06:00)
[2019-09-30 06:14] LABS: ALANINE AMINOTRANSFERASE 42 IU/L (0-55); ALBUMIN 2.2 g/dL (3.5-5.0); ALBUMIN/GLOBULIN RATIO 0.7 (0.8-2.0); ALKALINE PHOSPHATASE 150 IU/L (40-150); ANION GAP 8.9 mmol/L (8-16); BLOOD UREA NITROGEN 5 mg/dL (7-26); BUN/CREATININE RATIO 13 (6-25); CALCIUM 7.6 mg/dL (8.4-10.2); CARBON DIOXIDE 37 mmol/L (22-29); CHLORIDE 95 mmol/L (98-107); CREATININE, SERUM 0.39 mg/dL (0.72-1.25); EST GLOMERULAR FILTRATION RATE > 60 ML/MIN (60-); GLUCOSE 87 mg/dL (74-118); SODIUM 138 mmol/L (136-145)
[2019-09-30 06:15] LABS: POTASSIUM 2.9 mmol/L (3.5-5.1)
[2019-09-30] MEDS: FUROSEMIDE INJ 100 MG in SODIUM CHLORIDE 0.9% 100 ML 90 ML IV SCH (06:29)
[2019-09-30] MEDS: DOCUSATE SODIUM LIQD 100 MG/10 ML UDC NG SCH ×2 (08:33→17:51)
[2019-09-30] MEDS: METOPROLOL TARTRATE 25 MG TAB PO SCH ×4 (08:33→23:22)
[2019-09-30] MEDS: PANTOPRAZOLE 40 MG 10ML VIAL IV SCH (08:33)
[2019-09-30] MEDS: CYANOCOBALAMIN INJ 1,000 MCG/ML VIAL IM SCH (08:33)
[2019-09-30] MEDS: CHOLECALCIFEROL 400 UNIT TAB PO SCH ×2 (08:33→20:57)
[2019-09-30] MEDS: ENOXAPARIN INJ 80 MG/0.8 ML SYR SC SCH ×2 (08:33→20:57)
[2019-09-30] MEDS: BALSAM PERU/CASTOR OIL 60 GM OINT...G. TP SCH (08:46)
--- NOTE | 2019-09-30 09:32 | Progress Note ---
DATE: Pulmonary Critical Care Progress Note SUBJECTIVE: The patient is now on a PRVC with pressure control. Respiratory rate is at 30. PEEP is 10 and the pressure above PEEP is 30. The tidal volumes are 300. He remains on rocuronium as well as Versed and fentanyl. He is on the Lasix drip at 5 mg an hour, but he is tachycardic this morning. PHYSICAL EXAMINATION: VITAL SIGNS: Blood pressure is 95/50, pulse is 119, temperature is afebrile, and saturation is 97% on the above settings. GENERAL: The patient is prone and has an oral endotracheal tube in place. There is a PICC line. He also has an arterial line. CARDIAC: Reveals tachycardia with normal S1, S2. LUNGS: Auscultation of lungs shows decreased breath sounds at the bases. There is no wheezing. ABDOMEN: Soft, nontender. There is no rebound or guarding. EXTREMITIES: Shows no leg edema or calf tenderness. There is no cyanosis or clubbing. SKIN: Shows no rashes. NEUROLOGIC: Shows no focal abnormalities. The patient is sedated and paralyzed. LABORATORY DATA: Potassium is 2.9 and the BUN to creatinine ratio is 5 to 0.39 and the albumin is 2.2. The BUN to creatinine ratio is normal. The white blood cell count is 8, hemoglobin is 8.1, and platelet count is 200. RADIOGRAPHIC DATA: Chest x-ray shows bilateral pulmonary infiltrates. IMPRESSION: 1. Acute respiratory failure. 2. Viral pneumonia and COVID-19 infection. 3. Anemia. 4. Scrotal edema. 5. Hypoalbuminemia. 6. Hypokalemia. PLAN: 1. Place the patient back in the supine position. 2. Continue to monitor ABGs and wean ventilator as tolerated. 3. Hold Lasix and give albumin because of tachycardia and decreased blood pressure. 4. Continue enteral feedings. 5. Wound care. 6. Continue Lovenox. 7. Attempt to wean rocuronium. Continue Versed and fentanyl. 8. Replace potassium. Greater than 35 minutes in direct critical care time. Maximilian Lowry MD [facility]/MODL /[id number]
[2019-09-30 09:45] LABS: ABG PH 7.28 (7.35-7.45)
[2019-09-30 09:46] LABS: ABG HCO3 33 mmol/L (22-26); ABG PCO2 71 mmHg (35-45); ABG PO2 107 mmHg (80-105); ABG TCO2 36
[2019-09-30] MEDS: ALBUMIN 25% 25GM 100ML 100 ML IV SCH ×3 (10:32→22:20)
[2019-09-30] MEDS ORDERED: ALBUMIN 25% 25GM 100ML 0.25 GM/ML BTL IV SCH (12:00)
[2019-09-30] MEDS ORDERED: POTASSIUM CHLORIDE 20MEQ/100ML 200 ML IV ONE (13:00)
--- NOTE | 2019-09-30 15:25 | NUR ---
NFECTIOUS DISEASE PROGRESS NOTE DR NUNES day n 37 discussed with medical team SUBJECTIVE: Mr. Miles admitted to the intensive care unit, intubated, this is day #35 The patient is 44-year-old male, comes in with COVID-19 respiratory failure, remains on Lasix drip, remains on ventilator, remains on fentanyl and rocuronium. The patient is now on a PRVC with pressure control. Respiratory rate is at 30. PEEP is 10 and the pressure above PEEP is 30. The tidal volumes are 300. He remains on rocuronium as well as Versed and fentanyl. He is on the Lasix drip at 5 mg an hour, but he is tachycardic this morning. PHYSICAL EXAMINATION: VITAL SIGNS: Blood pressure is 95/50, pulse is 119, temperature is afebrile, and saturation is 97% on the above settings. GENERAL: The patient is prone and has an oral endotracheal tube in place. There is a PICC line. He also has an arterial line. CARDIAC: Reveals tachycardia with normal S1, S2. LUNGS: Auscultation of lungs shows decreased breath sounds at the bases. There is no wheezing. ABDOMEN: Soft, nontender. There is no rebound or guarding. EXTREMITIES: Shows no leg edema or calf tenderness. There is no cyanosis or clubbing. SKIN: Shows no rashes. NEUROLOGIC: Shows no focal abnormalities. The patient is sedated and paralyzed. LABORATORY DATA: Potassium is 2.9 and the BUN to creatinine ratio is 5 to 0.39 and the albumin is 2.2. The BUN to creatinine ratio is normal. The white blood cell count is 8, hemoglobin is 8.1, and platelet count is 200. PHYSICAL EXAMINATION: VITAL SIGNS: The patient is afebrile, intubated today, but have generalized edema. HEENT: He is not icteric. NECK: Supple. CHEST: Crackles. HEART: S1 and S2. ABDOMEN: Soft. LABS: REVIEWED RADIOLOGY: REVIEWED IMPRESSION: Respiratory failure COVD 19 viral pneumonia scrotal edema cont same
--- NOTE | 2019-09-30 15:54 | NUR ---
HEMATOLOGY/ONCOLOGY PROGRESS NOTE: HPI: Patient remains intubated in ICU. Events noted. ROS: 14 point ROS unable to obtain secondary to patient intubated, sedated. PHYSICAL EXAM: Vitals: Reviewed as per EMR. Tachycardic. PE not performed due to COVID-19 contact precautions. LABORATORY DATA: 09/30/2019: WBC: 8.08 Hgb: 8.1 Hct: 26.0 Platelet: 200 BUN: 5 Cr: 0.39 RADIOLOGY DATA: CXR 09/27/2019: 1. No significant interval change in multifocal airspace consolidative opacities. 2. Stable support lines and tubes as above. ASSESSMENT AND PLAN: Mr. Miles is a 42-year-old male with past medical history of hypertension who was admitted on 08/24/2019 due to cough and fever. Patient was found to be positive for COVID-19. Intubated due to worsening respiratory status. Patient has been treated with full-dose Lovenox since 09/08/19. Has required PRBC previously during admission. Patient now with dropping platelet count and recurrent anemia requiring PRBC transfusion. Hematology/Oncology has been consulted to assist with the management. 1. Thrombocytopenia: Likely secondary to consumption for infection. DIC panel showed no coagulopathy, elevated fibrinogen, does not appear DIC. Acute hepatitis panel negative. Abdominal US without evidence of liver cirrhosis or splenomegaly. HIT panel negative. Continue full-dose anticoagulation with Lovenox 1mg/kg subcu every 12 hours. Anti-Xa level slightly subtherapeutic for lovenox in obese patient, defer to pharmacy for dose adjustment. Thrombocytopenia RESOLVED. Monitor. 2. Anemia: Anemia panel appears mixed picture AOCD + RODRIGUEZ with noted low B12 level. Macrocytosis probably combination of B12 deficiency and possibly also related to bone marrow suppression from viral infection. Ferritin mildly elevated, likely as acute phase reactant. Repeat ferritin significantly more elevated hold IV iron. Reticulocyte count and LDH mildly elevated, haptoglobin elevated, does not appear hemolysis. S/P 1 unit PRBC transfused on 09/15/19. Continue B12 IM daily per GI on board. Hemoglobin improved from yesterdays labs, CBC in the morning. Will monitor closely as on anticoagulation. 3. COVID-19 PNA: In the ICU, pharmacologically sedated and intubated with weaning off vent as tolerated, on pressure control. On TPN. Undergoing intermittent proning. CXR as above. S/P course of antibiotics and steroids. DCed lasix, on albumin. Pulmonary and infectious disease on board. 4. Melena/ileus/abd distention: On Protonix IV. NGT in place. H/H monitoring per #2. GI on board. 5. DVT proph: Full dose Lovenox as per #1. Above plan discussed with Dr. Lona Martinez. Thank you for the consult. I will be available. Please call with questions.
--- NOTE | 2019-09-30 15:54 | NUR ---
Nutrition Intervention Note RD Recommendation(s) for Physician: -Recommend changing tube feeding order to Vital High Protein @ goal rate of 45 ml/hr (provides 1080 kcal and 95 gm protein). Remaining kcal provided by propofol. -Water flushes per MD. -Propofol provides an additional 451 kcal. Plan of Care: RD following, TF rec's, monitor adequacy and tolerance Nutrition reason for involvement: follow up RD Assessment 09/29: Follow up. Pt remains intubated, sedated on high dose Propofol, and paralyzed. Pt requiring to be in intermittent prone positioning. TF infusing at 35 ml/hr, not meeting protein needs. TF rec's provided. Chart reviewed. Will continue to monitor. 09/25: Follow up. Chart reviewed. Pt remains intubated and sedated. Pt is receiving propofol at 7.8 mL/hr which provides 205 lipid kcal. TF is infusing at 20 mL/hr. Recommend modifying tube feed formula to Vital High Protein at this time. Will continue to monitor. 09/22: Follow up. Pt remains intubated, sedated, and paralyzed. Pt requiring proning. TF infusing at 10 ml/hr and TPN weaned to 20 ml/hr. Chart reviewed. TF and TPN rec's provided pending ability to advance TF. Will continue to monitor. 09/18: Follow up. Chart reviewed. Pt remains intubated and sedated. Pt was started on tube feeding. Last recorded rate was 20 mL/hr this afternoon. Pt continues to receive TPN @ 42 mL/hr. Propofol rate is at 13.4 mL/hr (provides 354 kcal). Recommendations provided. Will continue to monitor 09/15: Follow up. Pt remains intubated, sedated on Propofol at 19.6 ml/hr, and paralyzed. Pt continues on TPN at 42 ml/hr, not meeting needs. Pt continues with persistent ileus and is receiving enemas and suppositories. Pt requiring daily proning 2/2 respiratory status. TF order remains, recommend NPO for now. TPN goal rec's provided, continues at 42 ml/hr. Chart reviewed. Will continue to monitor. 09/11: Follow up. Chart reviewed. Pt remains intubated and sedated. Pt is receiving 30 mL/hr of propofol per documentation which provides 792 lipid kcal. Tube feeding has been held due to abdominal distention and pt was started on TPN @ 42 mL/hr today. MD note indicates pt has an ileus. Recommendations provided. Will continue to monitor. 09/07: Follow up. Chart reviewed. Pt remains intubated and sedated. Pt is receiving 23.6 mL/hr of propofol per documentation which provides 623 lipid kcal. TF was at 20 mL/hr last night per chart. Per MD note, pts abdomen is distended and has not had a BM. Will continue to monitor. 09/04: Follow up. Pt remains intubated and sedated. Pt is receiving 9 mL/hr of propofol per documentation, which provides 238 lipid kcal. TF was at 20 mL/hr per chart yesterday. No additional administration rate is available. Will continue to monitor. 09/02: Follow up. Pt remains intubated, paralyzed, and sedated on Propofol and Versed. Pt requiring proning. TF rate at 10 ml/hr per TF documentation yesterday- inadequate EN currently, no additional EN administration available per chart. Recommend continuing EN while pt is proned by placing them in reverse Trendelenburg position. If unable to advance TF to goal rate, recommend considering PN. Chart reviewed. Will continue to monitor. 08/29: Initial encounter with patient. Pt is sedated and orally intubated. Pt was not able to provide a nutrition Hx at the time of visit. Unable to observe oral cavity or perform a nutrition focused physical exam. Jevity 1.2 infusing at 20ml hr with a goal of 50ml/hr. Propofol provides 1.1kcal/ml EN provides 576 kcals, 26.64g of protein, and 387.36ml of free H2O Principal Problems/Diagnoses: CoVID 19 pneumonia PMH: No significant medical Hx, overweight/obesity GI: LBM 09/28 Skin: Intact, +edema Labs: 09/29: Na 138, K 2.9, BUN 5, Cr 0.39, Gluc 87, POC 107-116 09/25: Na 142, K 3.7, BUN 11, Cr 0.49, Ca 7.8, Glu 107 09/22: Na 145, K 3.3, Cl 93, CO2 38, BUN 5, Cr 0.5, Gluc 129, POC 97-130 09/18: Na 146, K 3.6, Cr 0.50, BUN 13, Glu 100, Ca 7.7, Total Bili 1.6, AST 43 09/15: Na 148, K 3.8, Cl 102, CO2 38, BUN 15, Cr 0.57, Gluc 111 09/11: Na 148, BUN 18, Cr 0.51, Glu 120, Ca 8.0 09/07: Na 144, K 3.8, BUN 13, Cr 0.52, Glu 92, Ca 7.8 09/04: Na 141, K 4.0, BUN 21, Cr 0.63, Glu 122 09/02: Na 139, K 4.2, BUN 19, Cr 0.61, Gluc 101 Meds: KCl IVPB, IV albumin, vitamin B12, protonix, vitamin D3, colace IVF/Drips: Propofol at 17.1 ml/hr (451 lipid kcal), Rocuronium drip, Versed drip, Fentanyl drip Ht: 67 in. Wt: 251 lbs (09/28) 253.5 lbs (09/25) 254.31 lb (09/22) 258 lbs (09/18) 254 lb (09/15)- questionable wt gain, 218 lbs (09/11/19) 219 lbs (08/28) 220 lbs (09/04) 215.31lb (09/02), 200.44lbs (08/29) BMI: 31.4kg/m2 (weight used- 200 lbs) IBW: 148 lbs Malnutrition Evaluation (09/30/2019) Unable to assess due to current isolation precautions. Will re-evaluate at follow-up as appropriate. Nutrition Prescription (Diet Order): Vital AF at 20 ml/hr, infusing at 35 ml/hr (924 kcal and 63 gm protein) Estimated Nutritional Needs: 7811-6287 calories/day (22-25 kcal/kg IBW) 101-135 g protein/day (1.5-2 g pro/kg IBW) Diet Adequacy: Meeting calorie needs (TF + Propofol), Not meeting protein needs Diet Education Needs Assessment: Diet education not indicated. Nutrition Care Level: high Nutrition Diagnosis: Inadequate energy and protein intake related to intubation as evidenced by requiring alternative means of nutrition. Goal: Patient will meet 75-100% of estimated needs by follow up Progress: goal not met Interventions: Composition, Rate, Route, Recommended modifications Monitoring/Evaluation: Total energy intake, Total protein intake, Formula/Solution, Prescription medication, Weight change Signed: Mary Rodney RD, [place], [facility]
--- NOTE | 2019-09-30 16:00 | NUR ---
attempted to turn patient to supine position. Pt did not tolerate. Oxygen sats dropped to 48%. Sedation was increased and patient still was not tolerating. Patient emergently repositioned to prone position. Prior to repostioning patient given proper jalyn and wound care to penis and scrotal area. Once patient placed back to prone position patient's sats immediately returned to 95%. Propofol decreased back to 25mcg as patient more comfortable. Addendum: 09/30/19 at 1608 by Priti Benjamin RN Amended: Links added.
--- NOTE | 2019-09-30 19:46 | NUR ---
unable to obtain an axillary temp; rectal temp = 94.8. Place blankets and bear hugger on patient.
--- NOTE | 2019-09-30 20:10 | Progress Note ---
DATE: 09/30/2019 Cardiology Progress Note SUBJECTIVE: Remains intubated and sedated. Today in prone position. OBJECTIVE: HEENT: Dry mucosa. ET tube in place. NECK: Supple. CHEST: With rales and decreased breath sounds. CARDIOVASCULAR: Regular rate and rhythm. Normal S1 and S2. ABDOMEN: Deferred. EXTREMITIES: 1+ edema. GENITOURINARY: Scrotal edema, improving. CARDIOVASCULAR MEDICATIONS: Reviewed. Metoprolol tartrate 25 mg every 12 hours, furosemide IV drip is being held today, Lovenox 80 mg q.12 hours, hydralazine p.r.n., and IV p.r.n. metoprolol. STUDIES: Reviewed. Potassium 2.9, being repleted, creatinine 0.3, and glucose 87. White blood cells 8, hemoglobin 8, and platelets 200. INR. AST 38, ALT 42, and alkaline phosphatase 150. ASSESSMENT AND PLAN: A 44-year-old man presents with COVID-19 infection, community-acquired pneumonia, acute respiratory failure, hypertension, [id number] diastolic heart failure, and anemia. RECOMMEND: Continue current cardiovascular medications. Agree with holding diuretics today and repleting electrolytes. Can resume diuretics tomorrow depending on continue volume status. John Romero MD [facility]/ANGELA /[id number]
[2019-09-30 20:56] LABS: ABG PH 7.25 (7.35-7.45)
[2019-09-30 20:57] LABS: ABG HCO3 34 mmol/L (22-26); ABG PCO2 78 mmHg (35-45); ABG PO2 98 mmHg (80-105); ABG TCO2 37
[2019-09-30] MEDS ORDERED: PROPOFOL IV EMULSION 10MG/ML 100 ML IV PRN (21:30)
--- NOTE | 2019-09-30 21:45 | Progress Note ---
DATE: 09/30/2019 SUBJECTIVE: Intubated, sedated. Cannot give any history. OBJECTIVE: VITAL SIGNS: Temperature 97.7, pulse 114, respiratory rate 30, and blood pressure 101/52. GENERAL: Sedated, intubated. SKIN: No rash. HEENT: Endotracheal tube in place. LUNGS: Decreased breath sounds. HEART: Tachycardic. Normal S1 and S2. GI: Abdomen is soft, slightly distended. NEUROLOGIC: Sedated. PSYCHIATRIC: Sedated. LABORATORY DATA: Laboratory harrison, white count 8, hemoglobin 8, and platelet count 200. Potassium 2.9 and creatinine 0.4. ASSESSMENT AND PLAN: 1. Acute respiratory failure due to COVID-19 pneumonia. Currently his Lasix drip is being held because of lowish blood pressure, while discontinue his IV hydralazine and if the blood pressure comes back up then we can continue the Lasix drip. We will continue vent management per teaching pastor. 2. Chronic blood loss anemia, stable. 3. Abdominal distention per GI. 4. Morbid obesity. 5. Gastrointestinal and deep venous thrombosis prophylaxis. Continue Lovenox 80 mg twice a day per solar project coordination specialist. Yiching MD ALIN Mcmillan/ANGELA /[id number]
--- NOTE | 2019-09-30 23:14 | NUR ---
called Kirby Lowry to inform of patient's HR maintaining in the 140s ST. Order per Alen to give Albumin and missed dose of Lopressor. Will follow orders as given.
[2019-10-01] VITALS (25 sets, daily range): BP systolic 71–136; BP diastolic 43–77
[2019-10-01] MEDS: ROCURONIUM BROMIDE 250 MG in SODIUM CHLORIDE 0.9% 250ML 225 ML IV PRN ×3 (00:22→22:53)
[2019-10-01] MEDS: MIDAZOLAM HCL 5MG/ML 10ML VIAL 100 ML IV PRN ×2 (02:16→22:54)
[2019-10-01] MEDS: PROPOFOL IV EMULSION 10MG/ML 100 ML IV PRN ×2 (03:41→21:12)
[2019-10-01 05:04] LABS: BASOPHILS # (AUTO) 0.1 (0.0-0.1); BASOPHILS % 0.4 % (0.0-1.0); EOSINOPHILS # (AUTO) 0.2 (0.0-0.4); EOSINOPHILS % 1.6 % (0.0-6.0); HEMATOCRIT 28.6 % (38.2-49.6); HEMOGLOBIN 8.4 g/dL (14.0-18.0); LYMPHOCYTES # (AUTO) 0.8 (1.0-3.2); LYMPHOCYTES % 6.2 % (18.0-39.1); MEAN CORPUSCULAR HGB CONC 29.4 g/dL (31-35); MEAN CORPUSCULAR VOLUME 98.6 fL (81-99); MONOCYTES # (AUTO) 0.9 (0.2-0.8); MONOCYTES % 6.7 % (4.4-11.3); NEUTROPHILS # (AUTO) 11.3 (2.1-6.9); NEUTROPHILS % 83.8 % (38.7-80.0); PLATELET COUNT 214 x10e3/uL (140-360); RED CELL DISTRIBUTION WIDTH 15.9 % (11.7-14.4)
[2019-10-01] MEDS: HYDRALAZINE HCL 20 MG/ML VIAL IV SCH ×3 (05:21→21:21)
[2019-10-01] MEDS: EYE LUBRICANT OPTH OINT 3.5GM TUBE OP SCH ×4 (05:22→23:40)
[2019-10-01 05:23] LABS: ALANINE AMINOTRANSFERASE 43 IU/L (0-55); ALBUMIN/GLOBULIN RATIO 0.9 (0.8-2.0); ALKALINE PHOSPHATASE 146 IU/L (40-150); BLOOD UREA NITROGEN 9 mg/dL (7-26); BUN/CREATININE RATIO 18 (6-25); CALCIUM 8.6 mg/dL (8.4-10.2); CARBON DIOXIDE 35 mmol/L (22-29); CHLORIDE 95 mmol/L (98-107); EST GLOMERULAR FILTRATION RATE > 60 ML/MIN (60-); GLUCOSE 107 mg/dL (74-118); SODIUM 137 mmol/L (136-145)
[2019-10-01] MEDS ORDERED: POTASSIUM CHLORIDE 20MEQ/100ML 200 ML IV ONE (06:00)
[2019-10-01] MEDS: PANTOPRAZOLE 40 MG 10ML VIAL IV SCH (08:09)
[2019-10-01] MEDS: CYANOCOBALAMIN INJ 1,000 MCG/ML VIAL IM SCH (08:09)
[2019-10-01] MEDS: DOCUSATE SODIUM LIQD 100 MG/10 ML UDC NG SCH ×2 (08:09→18:23)
[2019-10-01] MEDS: CHOLECALCIFEROL 400 UNIT TAB PO SCH ×2 (08:10→21:21)
[2019-10-01] MEDS: ENOXAPARIN INJ 80 MG/0.8 ML SYR SC SCH ×2 (08:10→21:21)
[2019-10-01] MEDS: METOPROLOL TARTRATE 25 MG TAB PO SCH ×2 (08:10→21:21)
[2019-10-01 08:18] LABS: ABG HCO3 34 mmol/L (22-26); ABG PCO2 80 mmHg (35-45); ABG PH 7.23 (7.35-7.45); ABG PO2 79 mmHg (80-105); ABG TCO2 36
[2019-10-01] MEDS: ALBUMIN 25% 25GM 100ML 100 ML IV SCH ×3 (10:25→23:39)
--- NOTE | 2019-10-01 10:28 | Progress Note ---
DATE: SUBJECTIVE: The patient had some low blood pressures last night and tachycardia. He continues on rocuronium as well as propofol, Versed and fentanyl. He received some albumin yesterday and his Lasix drip is on hold. PHYSICAL EXAMINATION: VITAL SIGNS: The blood pressure is 86/49 and the pulse is 120. He is currently on a PRVC mode of ventilation with pressure control at a rate of 34. His pressure above PEEP is set at 32. His PEEP is set at 10. His FiO2 is set at 60%. His saturation is in the mid-to-high 90s. GENERAL: He continues to require the sedatives as mentioned above. He is in a prone position. HEENT: No facial swelling or erythema. There is an oral endotracheal tube. The patient has a nasogastric feeding tube. CARDIAC: Regular rate and rhythm with normal S1, S2. LUNGS: Auscultation of lungs reveals crackles at the bases. There is no wheezing. ABDOMEN: Soft, nontender. There is no rebound or guarding. EXTREMITIES: No leg edema or calf tenderness. There is no cyanosis or clubbing. SKIN: No rashes. NEUROLOGICAL: The patient to be sedated. LABORATORY DATA: White blood cell count is 13.5 and hemoglobin is 8.4. The platelet count is 214. The BUN to creatinine ratio is 9 to 0.5 and the other electrolytes are within normal limits. The albumin is 3. Blood gases 7.23, 80, 79, and 36. RADIOGRAPHIC DATA: Chest x-ray is still pending. IMPRESSION: 1. Acute respiratory failure. 2. Viral pneumonia and coronavirus disease-19 infection. 3. Anemia. 4. Scrotal edema. 5. Tachycardia. 6. Hypotension. 7. Hypoalbuminemia. 8. Hypokalemia. PLAN: 1. The patient will receive additional albumin. We will continue to hold the Lasix. 2. Increase sedation while the patient is on rocuronium and use Levophed if required. 3. Continue enteral feedings. 4. Continue Lovenox. 5. Continue to replace potassium. 6. Case discussed with Respiratory, nursing, Cardiology, Internal Medicine, and administration. Greater than 35 minutes in direct critical care time. Maximilian Lowry MD [facility]/ANGELA /[id number]
--- NOTE | 2019-10-01 11:02 | Progress Note ---
DATE: 10/01/2019 Cardiology Progress Note SUBJECTIVE: Remains intubated and sedated, in prone position. OBJECTIVE: VITAL SIGNS: Temperature , heart rate 121, sinus tachycardia on telemetry, blood pressure 90/50, respiratory rate 33, and O2 saturation 97%. GENERAL: Intubated, sedated, tube in place. HEENT: Dry mucosa. NECK: Supple. CHEST: With rales and decreased breath sounds. CARDIOVASCULAR: Regular rate and rhythm. Normal S1 and S2. Tachycardic. ABDOMEN: Deferred, as the patient is in prone position. EXTREMITIES: Normothermic with trace edema. CARDIOVASCULAR MEDICATIONS: Reviewed. Potassium chloride, Lovenox 80 q.12, metoprolol tartrate 25 q.12 plus 5 IV q.6 hours as needed, and furosemide drip. LABORATORY DATA: Reviewed. Creatinine 0.5, potassium 4, bicarbonate 35, and sodium 137. White blood cells 13, hemoglobin 8, and platelets 214. INR 1. ASSESSMENT AND PLAN: A 44-year-old man presents with COVID-19 infection, community-acquired pneumonia, acute respiratory failure, anemia, and xiygy-ra-[id number] diastolic heart failure. RECOMMENDATIONS: Continue current cardiovascular medications. Continue weaning vent support as tolerated. Prolonged ventilatory support. Guarded prognosis. John Romero MD [facility]/MODL /[id number]
[2019-10-01] MEDS ORDERED: ALBUMIN 25% 25GM 100ML 0.25 GM/ML BTL IV SCH (12:00)
--- NOTE | 2019-10-01 16:04 | Progress Note ---
DATE: SUBJECTIVE: This is day #38. Mr. Miles remains in intensive care unit. The patient had low blood pressure last night, tachycardia. His Lasix is on hold. edematous. OBJECTIVE: VITAL SIGNS: Blood pressure on low side. Heart rate 120. Vent setting noted. HEENT: Normocephalic. NECK: Supple. CHEST: Crackles. HEART: S1, S2. No murmurs. ABDOMEN: Soft. EXTREMITIES: Diffuse edema. IMPRESSION: Acute respiratory failure, this is day #38, tachycardic still. I am going to give him short course of high-dose steroid to see that will help with the blood pressure and edema. We will restart him also on meropenem for possibility of aspiration pneumonia. Reassess in the morning. We will follow. MD MAYURI Taylor/ANGELA /[id number]
[2019-10-01] MEDS: BALSAM PERU/CASTOR OIL 60 GM OINT...G. TP SCH (16:59)
[2019-10-01] MEDS: NOREPINEPHRINE 8 MG/D5W 250 ML 250 ML IV SCH (17:00)
[2019-10-01] MEDS ORDERED: METHYLPREDNISOLONE SOD SUCC 40 MG/ML VIAL 1ML IV SCH (18:00)
[2019-10-01] MEDS: MEROPENEM 1GM 100 ML IV SCH (18:23)
[2019-10-01] MEDS: METHYLPREDNISOLONE SOD SUCC 125 MG/2ML VIAL IV SCH ×2 (18:23→23:40)
--- NOTE | 2019-10-01 18:28 | NUR ---
Pt turned from prone position to right side. Patient does not tolerate movement as evidenced by a significant decrease in oxygen saturation and an increase in fiO2 demands. Pt. sucessfully turned to right side and slight movements in body positioning throughout to off lay pressure points as patient is on CIARA and unable to readjust weight. Thorough skin assessment performed and patient without new skin breakdown or redness noted. Addendum: 10/01/19 at 1832 by Priti Benjamin RN Amended: Links added.
[2019-10-01] MEDS: ACETAMINOPHEN 325 MG TAB NG PRN (21:21)
[2019-10-01 21:36] LABS: ABG HCO3 32 mmol/L (22-26); ABG PCO2 72 mmHg (35-45); ABG PH 7.26 (7.35-7.45); ABG PO2 68 mmHg (80-105)
[2019-10-01 21:37] LABS: ABG TCO2 35
--- NOTE | 2019-10-01 23:00 | Progress Note ---
DATE: 10/01/2019 SUBJECTIVE: Intubated, sedated, unable to give history. OBJECTIVE: VITAL SIGNS: Temperature 101.0, pulse 144, respiratory rate 36, blood pressure 129/60. GENERAL: Sedated, intubated. SKIN: No rash. HEENT: Endotracheal tube in place. LUNGS: Decreased breath sounds. HEART: Tachycardic. Normal S1, S2. ABDOMEN: Soft, slightly distended. NEUROLOGIC: Sedated. PSYCHIATRIC: Sedated. LABORATORY DATA: White count 13, hemoglobin 8, platelet count 214, creatinine 0.5. ASSESSMENT AND PLAN: 1. Acute respiratory failure due to coronavirus disease-19 pneumonia. At this time, he has fever and leukocytosis no . Meropenem was restarted along with high dose Solu-Medrol. We will continue Lasix drip and vent management per purchasing contracting clerk. 2. Chronic blood loss anemia, stable. 3. Abdominal distention, per GI. 4. Morbid obesity. 5. Gastrointestinal and deep vein thrombosis prophylaxis. We will continue Lovenox 80 mg twice a day per sld teacher. MD ALIN Allred/ANGELA /[id number]
[2019-10-02] VITALS (25 sets, daily range): BP systolic 84–149; BP diastolic 51–96
[2019-10-02] MEDS: MEROPENEM 1GM 100 ML IV SCH ×3 (00:43→16:58)
[2019-10-02] MEDS: PROPOFOL IV EMULSION 10MG/ML 100 ML IV PRN ×3 (00:56→17:03)
[2019-10-02] MEDS: NOREPINEPHRINE 8 MG/D5W 250 ML 250 ML IV SCH (00:57)
[2019-10-02] MEDS: FENTANYL CITRATE INJ 2,000 MCG in SODIUM CHLORIDE 0.9% 250ML 210 ML IV PRN ×4 (01:54→22:59)
[2019-10-02 04:48] LABS: BASOPHILS % 0.3 % (0.0-1.0); EOSINOPHILS % 0.2 % (0.0-6.0); HEMATOCRIT 25.1 % (38.2-49.6); HEMOGLOBIN 7.4 g/dL (14.0-18.0); LYMPHOCYTES # (AUTO) 1.1 (1.0-3.2); LYMPHOCYTES % 9.2 % (18.0-39.1); MEAN CORPUSCULAR HEMOGLOBIN 28.1 pg (28-32); MEAN CORPUSCULAR HGB CONC 29.5 g/dL (31-35); MEAN CORPUSCULAR VOLUME 95.4 fL (81-99); MONOCYTES # (AUTO) 0.5 (0.2-0.8); MONOCYTES % 3.9 % (4.4-11.3); NEUTROPHILS # (AUTO) 10.2 (2.1-6.9); NEUTROPHILS % 84.5 % (38.7-80.0); PLATELET COUNT 201 x10e3/uL (140-360); RED BLOOD COUNT 2.63 x10e6/uL (4.3-5.7); RED CELL DISTRIBUTION WIDTH 15.8 % (11.7-14.4)
[2019-10-02] MEDS: EYE LUBRICANT OPTH OINT 3.5GM TUBE OP SCH ×3 (05:08→16:59)
[2019-10-02 05:22] LABS: ALANINE AMINOTRANSFERASE 34 IU/L (0-55); ALBUMIN 3.2 g/dL (3.5-5.0); ALBUMIN/GLOBULIN RATIO 1.1 (0.8-2.0); ALKALINE PHOSPHATASE 128 IU/L (40-150); BLOOD UREA NITROGEN 12 mg/dL (7-26); BUN/CREATININE RATIO 20 (6-25); CALCIUM 8.2 mg/dL (8.4-10.2); CARBON DIOXIDE 33 mmol/L (22-29); CHLORIDE 97 mmol/L (98-107); CREATININE, SERUM 0.59 mg/dL (0.72-1.25); EST GLOMERULAR FILTRATION RATE > 60 ML/MIN (60-); GLUCOSE 141 mg/dL (74-118); SODIUM 139 mmol/L (136-145)
[2019-10-02] MEDS: METHYLPREDNISOLONE SOD SUCC 125 MG/2ML VIAL IV SCH ×2 (05:55→14:01)
[2019-10-02] MEDS: HYDRALAZINE HCL 20 MG/ML VIAL IV SCH ×3 (05:55→21:34)
[2019-10-02] MEDS: ROCURONIUM BROMIDE 250 MG in SODIUM CHLORIDE 0.9% 250ML 225 ML IV PRN ×3 (06:17→17:07)
[2019-10-02] MEDS: MIDAZOLAM HCL 5MG/ML 10ML VIAL 100 ML IV PRN ×3 (07:50→23:59)
[2019-10-02] MEDS: PANTOPRAZOLE 40 MG 10ML VIAL IV SCH (09:11)
[2019-10-02] MEDS: METOPROLOL TARTRATE 25 MG TAB PO SCH ×2 (09:14→21:33)
[2019-10-02] MEDS: DOCUSATE SODIUM LIQD 100 MG/10 ML UDC NG SCH ×2 (09:14→16:59)
[2019-10-02] MEDS: BALSAM PERU/CASTOR OIL 60 GM OINT...G. TP SCH (09:15)
[2019-10-02] MEDS: ENOXAPARIN INJ 80 MG/0.8 ML SYR SC SCH ×2 (09:15→21:33)
[2019-10-02] MEDS: CHOLECALCIFEROL 400 UNIT TAB PO SCH (09:15)
[2019-10-02] MEDS: CYANOCOBALAMIN INJ 1,000 MCG/ML VIAL IM SCH (09:23)
[2019-10-02] MEDS: ACETAMINOPHEN 325 MG TAB NG PRN (09:24)
[2019-10-02 09:32] LABS: ABG HCO3 33 mmol/L (22-26); ABG PCO2 61 mmHg (35-45); ABG PH 7.34 (7.35-7.45); ABG PO2 58 mmHg (80-105); ABG TCO2 35
--- NOTE | 2019-10-02 09:57 | Progress Note ---
DATE: SUBJECTIVE: The patient continues to require a prone position. He is currently on pressure control with a set rate of 36 and a PEEP of 10. The pressure above PEEP is 32. The FiO2 is set at 100%. He remains on rocuronium 0.006 as well as fentanyl and Versed along with low-dose propofol. His Lasix drip has been restarted at 5 mg an hour. He did have some temperature yesterday at 101. PHYSICAL EXAMINATION: VITAL SIGNS: Blood pressure is 128/55, pulse is 120-130, saturation is in the mid 90s on the above settings. HEENT: Shows no facial swelling or erythema. There is an oral endotracheal tube. There is a PICC line in place as well as an arterial line. LYMPHATIC: Shows no submandibular, cervical, or supraclavicular adenopathy. CARDIAC: Reveals regular rate and rhythm with normal S1, S2. LUNGS: Auscultation of lungs shows decreased breath sounds at the bases. There is no wheezing. ABDOMEN: Soft and nontender. There is no rebound or guarding. EXTREMITIES: Shows no leg edema or calf tenderness. There is no cyanosis or clubbing. SKIN: Shows no rashes. LABORATORY DATA: White blood cell count is 12.1, hemoglobin is 7.4, and the platelet count is 201. The BUN to creatinine ratio is normal. Other electrolytes are within normal limits. The blood sugars 160-175 and albumin is 2. IMPRESSION: 1. Acute respiratory failure. 2. Viral pneumonia and COVID-19 infection. 3. Anemia. 4. Fevers. 5. Hypoalbuminemia. 6. Tachycardia. 7. Scrotal edema. PLAN: 1. Repeat chest x-ray now. 2. Repeat sputum and blood cultures. 3. Continue current antibiotics. 4. Continue pressure control ventilation and monitor ABGs. 5. Continue Lovenox at 1 mg/kg twice daily. 6. Continue enteral feedings. 7. Continue Lasix drip. Greater than 35 minutes in direct critical care time. Maximilian Lowry MD [facility]/ANGELA /[id number]
--- NOTE | 2019-10-02 10:44 | Diagnostic Imaging Report ---
EXAM: CHEST SINGLE (PORTABLE) DATE: 10/02/2019 10:17 AM INDICATION: Viral pneumonia, intubated COMPARISON: 09/27/2019 FINDINGS: The patient is rotated limiting evaluation. Endotracheal tube identified terminating approximately 6 cm above the fred. Enteric tube noted coursing below the diaphragm. Again identified are extensive multifocal patchy airspace opacities throughout the lungs bilaterally, not significantly changed from the prior examination. There is no evidence for pneumothorax or significant volume pleural effusion. The cardiomediastinal mediastinal silhouette is obscured by airspace opacity that appears grossly stable. No acute osseous abnormalities identified.. IMPRESSION: No significant interval change from 09/27/2019 Signed by: Dr. Jerad Child MD on 10/02/2019 10:41 AM
[2019-10-02 10:52] LABS: CLARITY,URINE CLOUDY (CLEAR); COLOR,URINE YELLOW (YELLOW)
[2019-10-02 10:53] LABS: KETONES,URINE TRACE (NEGATIVE); LEUKOCYTE ESTERASE ,URINE NEGATIVE (NEGATIVE); NITRITE,URINE NEGATIVE (NEGATIVE); PROTEIN,URINE DIPSTICK 1+ (NEGATIVE)
[2019-10-02 10:54] LABS: BACTERIA,URINE RARE /HPF; BILIRUBIN,URINE SMALL (NEGATIVE); EPITHELIAL CELLS,URINE FEW /LPF
--- NOTE | 2019-10-02 12:42 | NUR ---
Nutrition Intervention Note RD Recommendation(s) for Physician: -Recommend changing tube feeding order to Vital High Protein @ goal rate of 45 ml/hr (provides 1080 kcal and 95 gm protein). Remaining kcal provided by propofol. To better meet needs consider giving 3 packets of Beneprotein when as TF rate decreased in prone position. -Water flushes per MD. -Propofol provides an additional 451 kcal. Plan of Care: RD following, TF rec's, monitor adequacy and tolerance Nutrition reason for involvement: follow up RD Assessment 10/01: Follow up. Pt remains intubated, sedated on Propofol, and paralyzed. Pt requiring to be proned. TF rate decreased to 20 ml/hr currently- not meeting kcal or protein needs. TF rec's provided. Chart reviewed. Will continue to monitor. 09/29: Follow up. Pt remains intubated, sedated on high dose Propofol, and paralyzed. Pt requiring to be in intermittent prone positioning. TF infusing at 35 ml/hr, not meeting protein needs. TF rec's provided. Chart reviewed. Will continue to monitor. 09/25: Follow up. Chart reviewed. Pt remains intubated and sedated. Pt is receiving propofol at 7.8 mL/hr which provides 205 lipid kcal. TF is infusing at 20 mL/hr. Recommend modifying tube feed formula to Vital High Protein at this time. Will continue to monitor. 09/22: Follow up. Pt remains intubated, sedated, and paralyzed. Pt requiring proning. TF infusing at 10 ml/hr and TPN weaned to 20 ml/hr. Chart reviewed. TF and TPN rec's provided pending ability to advance TF. Will continue to monitor. 09/18: Follow up. Chart reviewed. Pt remains intubated and sedated. Pt was started on tube feeding. Last recorded rate was 20 mL/hr this afternoon. Pt continues to receive TPN @ 42 mL/hr. Propofol rate is at 13.4 mL/hr (provides 354 kcal). Recommendations provided. Will continue to monitor 09/15: Follow up. Pt remains intubated, sedated on Propofol at 19.6 ml/hr, and paralyzed. Pt continues on TPN at 42 ml/hr, not meeting needs. Pt continues with persistent ileus and is receiving enemas and suppositories. Pt requiring daily proning 2/2 respiratory status. TF order remains, recommend NPO for now. TPN goal rec's provided, continues at 42 ml/hr. Chart reviewed. Will continue to monitor. 09/11: Follow up. Chart reviewed. Pt remains intubated and sedated. Pt is receiving 30 mL/hr of propofol per documentation which provides 792 lipid kcal. Tube feeding has been held due to abdominal distention and pt was started on TPN @ 42 mL/hr today. MD note indicates pt has an ileus. Recommendations provided. Will continue to monitor. 09/07: Follow up. Chart reviewed. Pt remains intubated and sedated. Pt is receiving 23.6 mL/hr of propofol per documentation which provides 623 lipid kcal. TF was at 20 mL/hr last night per chart. Per MD note, pts abdomen is distended and has not had a BM. Will continue to monitor. 09/04: Follow up. Pt remains intubated and sedated. Pt is receiving 9 mL/hr of propofol per documentation, which provides 238 lipid kcal. TF was at 20 mL/hr per chart yesterday. No additional administration rate is available. Will continue to monitor. 09/02: Follow up. Pt remains intubated, paralyzed, and sedated on Propofol and Versed. Pt requiring proning. TF rate at 10 ml/hr per TF documentation yesterday- inadequate EN currently, no additional EN administration available per chart. Recommend continuing EN while pt is proned by placing them in reverse Trendelenburg position. If unable to advance TF to goal rate, recommend considering PN. Chart reviewed. Will continue to monitor. 08/29: Initial encounter with patient. Pt is sedated and orally intubated. Pt was not able to provide a nutrition Hx at the time of visit. Unable to observe oral cavity or perform a nutrition focused physical exam. Jevity 1.2 infusing at 20ml hr with a goal of 50ml/hr. Propofol provides 1.1kcal/ml EN provides 576 kcals, 26.64g of protein, and 387.36ml of free H2O Principal Problems/Diagnoses: CoVID 19 pneumonia PMH: No significant medical Hx, overweight/obesity GI: LBM 10/01- liquid stool Skin: bilateral knees- ischemic edema, penis- ischemic edema, scrotal abrasion Labs: 10/01: Na 139, K 4, BUN 12, Cr 0.59, Gluc 141, POC Gluc 127-175 09/29: Na 138, K 2.9, BUN 5, Cr 0.39, Gluc 87, POC 107-116 09/25: Na 142, K 3.7, BUN 11, Cr 0.49, Ca 7.8, Glu 107 09/22: Na 145, K 3.3, Cl 93, CO2 38, BUN 5, Cr 0.5, Gluc 129, POC 97-130 09/18: Na 146, K 3.6, Cr 0.50, BUN 13, Glu 100, Ca 7.7, Total Bili 1.6, AST 43 09/15: Na 148, K 3.8, Cl 102, CO2 38, BUN 15, Cr 0.57, Gluc 111 09/11: Na 148, BUN 18, Cr 0.51, Glu 120, Ca 8.0 09/07: Na 144, K 3.8, BUN 13, Cr 0.52, Glu 92, Ca 7.8 09/04: Na 141, K 4.0, BUN 21, Cr 0.63, Glu 122 09/02: Na 139, K 4.2, BUN 19, Cr 0.61, Gluc 101 Meds: abx, vitamin B12, protonix, vitamin D3, colace IVF/Drips: Propofol at 26.2 ml/hr (692 lipid kcal), Rocuronium drip, Versed drip, Fentanyl drip Ht: 67 in. Wt: 251 lbs (09/28) 253.5 lbs (09/25) 254.31 lb (09/22) 258 lbs (09/18) 254 lb (09/15)- questionable wt gain, 218 lbs (09/11/19) 219 lbs (08/28) 220 lbs (09/04) 215.31lb (09/02), 200.44lbs (08/29) BMI: 31.4kg/m2 (weight used- 200 lbs) IBW: 148 lbs Malnutrition Evaluation (09/30/2019) Unable to assess due to current isolation precautions. Will re-evaluate at follow-up as appropriate. Nutrition Prescription (Diet Order): Vital AF at 20 ml/hr, 576 kcal and 36 gm protein Estimated Nutritional Needs: 7397-5894 calories/day (22-25 kcal/kg IBW) 101-135 g protein/day (1.5-2 g pro/kg IBW) Diet Adequacy: not meeting calorie needs (TF + Propofol), Not meeting protein needs Diet Education Needs Assessment: Diet education not indicated. Nutrition Care Level: high- not meeting needs, decreased TF rate while in prone position Nutrition Diagnosis: Inadequate energy and protein intake related to intubation as evidenced by requiring alternative means of nutrition. Goal: Patient will meet 75-100% of estimated needs by follow up Progress: goal not met Interventions: Composition, Rate, Route, Recommended modifications Monitoring/Evaluation: Total energy intake, Total protein intake, Formula/Solution, Prescription medication, Weight change Signed: Mary Rodney RD, LD, CNSC
[2019-10-02] MEDS ORDERED: FUROSEMIDE INJ 100 MG in SODIUM CHLORIDE 0.9% 100 ML 90 ML IV SCH (16:00)
[2019-10-02] MEDS: FUROSEMIDE INJ 100 MG in SODIUM CHLORIDE 0.9% 100 ML 90 ML IV SCH ×2 (16:58→22:59)
--- NOTE | 2019-10-02 17:35 | Progress Note ---
DATE: SUBJECTIVE: Mr. Miles is not doing well at all. He remains in intensive care unit. Generalized edema. His vent setting noted. He has maximum vent support. He has fever. PHYSICAL EXAMINATION: HEENT: He is not icteric. NECK: Supple. CHEST: Crackles. HEART: S1, S2. ABDOMEN: Soft. EXTREMITIES: No edema. IMPRESSION AND PLAN: Respiratory failure, COVID-19, anemia, concern emphysematous spacing, concern pneumonia aspiration. I tried steroid for a short time. I do not see any improvement. Really, I am going to stop it tomorrow if I do not see any, discussed here with family. We will put him back on cefepime. Obtain sputum cultures. Prognosis remains poor. MD MAYURI Taylor/MODL /[id number]
[2019-10-02 20:01] LABS: ABG PH 7.22 (7.35-7.45)
[2019-10-02 20:02] LABS: ABG HCO3 29 mmol/L (22-26); ABG PCO2 72 mmHg (35-45); ABG PO2 71 mmHg (80-105); ABG TCO2 31
[2019-10-02] MEDS ORDERED: METHYLPREDNISOLONE SOD SUCC 125 MG/2ML VIAL IV SCH (21:00)
--- NOTE | 2019-10-02 21:00 | Progress Note ---
DATE: 10/02/2019 Cardiology Progress Note SUBJECTIVE: Remains intubated and sedated. OBJECTIVE: VITAL SIGNS: Temperature 98.2, heart rate 124, blood pressure 105/57, respiratory rate 36, O2 saturation 91%, intubated and sedated prone position. HEENT: ET tube in place. CHEST: Rales and decreased breath sounds. CARDIOVASCULAR: Regular rate and rhythm. Normal S1 and S2. Tachycardic. ABDOMEN: Deferred. The patient in prone position. EXTREMITIES: With edema 1+ throughout, normal thermic extremities. CARDIOVASCULAR MEDICATIONS: Reviewed. Hydralazine 10 mg q.8 hours, Lovenox 80 mg q.12 hours, metoprolol tartrate 5 mg q.6 hours, methylprednisolone 100 mg q.6 hours, metoprolol tartrate 25 mg every 12 hours and furosemide IV drip. LABORATORY DATA: Reviewed. Sodium 139, potassium 4, chloride 97, bicarbonate 33, BUN 12, creatinine 0.59, glucose 141. White blood cells 12, hemoglobin 7.4, platelets 201,000. PT 14.5, PTT 37.7, INR 1.07. AST 22, ALT 34, total bilirubin is 1.2, alkaline phosphatase 128. ASSESSMENT AND PLAN: A 44-year-old man with anemia, COVID-19 infection, community-acquired pneumonia, acute respiratory failure requiring prolonged ventilator support, hypertension, acute on chronic diastolic heart failure. RECOMMENDATIONS: 1. Recommend continue diuretic drip. 2. Monitor H and H. 3. Continue antihypertensives. 4. Guarded prognosis, continues supportive care. MD OPAL Del Valle/ANGELA /[id number]
[2019-10-02] MEDS ORDERED: SODIUM CHLORIDE 0.9% 1000ML 1,000 ML ONE (21:27)
[2019-10-02] MEDS: ALBUMIN 25% 25GM 100ML 0.25 GM/ML BTL IV SCH ×2 (21:33→23:30)
--- NOTE | 2019-10-02 22:26 | Progress Note ---
DATE: 10/02/2019 CONSULTANTS: 1. Dr. Maximilian Lowry, colorer. 2. Dr. Maguire with Infectious Disease. 3. Dr. Casas with Cardiology. CHIEF COMPLAINT: Dyspnea. SUBJECTIVE: The patient is intubated and sedated. PHYSICAL EXAMINATION: VITAL SIGNS: Temperature 97.9, pulse is 127, respirations 36, blood pressure 104/61, pulse ox is 92%. GENERAL: Sedated. HEENT: Intubated. LUNGS: Decreased breath sounds. CARDIOVASCULAR: Tachycardia. ABDOMEN: Soft and obese. GENITOURINARY: Ho in place. NEURO: Sedated. MUSCULOSKELETAL: Bilateral lower extremity edema. SKIN: Dry. LABORATORY DATA: WBC 12.11, hemoglobin 7.4, hematocrit 25.1, platelets 201. Sodium 139, creatinine 0.59. Chest x-ray, no significant change. ASSESSMENT AND PLAN: 1. Acute respiratory failure due to coronavirus disease-2019 pneumonia. Remains intubated, fever overnight, continue Merrem per ID. Vent management per Pulmonary. Chest x-ray with not much improvement. Continue Lasix drip. 2. Anemia. Hemoglobin is 7.4 today. We will monitor closely and transfuse if hemoglobin is less than 7. 3. Mild abdominal distention. GI has been consulted. 4. Morbid obesity. 5. Edema. Continue Lasix drip. 6. Deep vein thrombosis prophylaxis. On Lovenox. Plan is to continue current treatment. Dictated by SNEHAL Laguerre Taylor Aparicio MD MY/MODL /[id number]
[2019-10-02] MEDS: ROCURONIUM BROMIDE 1,250 MG in SODIUM CHLORIDE 0.9% 250ML 125 ML IV PRN (23:30)
[2019-10-03] VITALS (26 sets, daily range): BP systolic 130–175; BP diastolic 54–85
[2019-10-03] MEDS: EYE LUBRICANT OPTH OINT 3.5GM TUBE OP SCH ×4 (00:03→17:22)
[2019-10-03] MEDS: MEROPENEM 1GM 100 ML IV SCH ×3 (01:18→17:21)
[2019-10-03 04:49] LABS: BASOPHILS % 0.2 % (0.0-1.0); EOSINOPHILS % 0.2 % (0.0-6.0); HEMATOCRIT 23.5 % (38.2-49.6); LYMPHOCYTES # (AUTO) 0.9 (1.0-3.2); LYMPHOCYTES % 7.4 % (18.0-39.1); MEAN CORPUSCULAR HEMOGLOBIN 28.3 pg (28-32); MEAN CORPUSCULAR HGB CONC 29.8 g/dL (31-35); MEAN CORPUSCULAR VOLUME 95.1 fL (81-99); MONOCYTES # (AUTO) 1.5 (0.2-0.8); NEUTROPHILS # (AUTO) 9.4 (2.1-6.9); NEUTROPHILS % 77.9 % (38.7-80.0); PLATELET COUNT 210 x10e3/uL (140-360); RED BLOOD COUNT 2.47 x10e6/uL (4.3-5.7); RED CELL DISTRIBUTION WIDTH 15.9 % (11.7-14.4)
[2019-10-03 04:58] LABS: ALANINE AMINOTRANSFERASE 30 IU/L (0-55); ALBUMIN 3.6 g/dL (3.5-5.0); ALBUMIN/GLOBULIN RATIO 1.5 (0.8-2.0); ALKALINE PHOSPHATASE 115 IU/L (40-150); ANION GAP 13.2 mmol/L (8-16); BLOOD UREA NITROGEN 18 mg/dL (7-26); BUN/CREATININE RATIO 31 (6-25); CALCIUM 8.5 mg/dL (8.4-10.2); CARBON DIOXIDE 36 mmol/L (22-29); CHLORIDE 97 mmol/L (98-107); CREATININE, SERUM 0.59 mg/dL (0.72-1.25); EST GLOMERULAR FILTRATION RATE > 60 ML/MIN (60-); GLUCOSE 129 mg/dL (74-118); POTASSIUM 3.2 mmol/L (3.5-5.1); SODIUM 143 mmol/L (136-145)
[2019-10-03] MEDS: HYDRALAZINE HCL 20 MG/ML VIAL IV SCH ×3 (05:22→22:17)
[2019-10-03] MEDS: MIDAZOLAM HCL 5MG/ML 10ML VIAL 100 ML IV PRN ×4 (06:26→19:17)
--- NOTE | 2019-10-03 07:52 | NUR ---
pt is proned, on vent @ 100/36/pc34. fent/vers/emelina with lasix drip. vs stable.
[2019-10-03] MEDS: NOREPINEPHRINE 8 MG/D5W 250 ML 250 ML IV SCH (08:59)
[2019-10-03] MEDS ORDERED: ACETAMINOPHEN 325 MG TAB PO ONE (09:00)
[2019-10-03] MEDS ORDERED: POTASSIUM CHLORIDE 20MEQ/100ML 200 ML IV ONE ×2 (09:00→09:15)
--- NOTE | 2019-10-03 09:08 | Progress Note ---
DATE: SUBJECTIVE: The patient is currently in the prone position. He is on Lasix drip at 10 mg an hour. His saturations have improved, and he is now 100% saturated. He remains on a PRVC mode of ventilation with pressure control. His PEEP is set at 12, and his pressure above, PEEP is 34. His tidal volumes are 380 to 390. The patient is continuing on rocuronium as well as Versed and fentanyl. He is also on some propofol. PHYSICAL EXAMINATION: VITAL SIGNS: The heart rate is still 110 to 120. The saturation is 100% on the above ventilator settings. HEENT: Shows no facial swelling or erythema. There is an oral endotracheal tube in place. The patient has a PICC line. The site is clean. He has an arterial line in place. CARDIAC: Reveals tachycardia with normal S1 and S2. There are no murmurs or rubs heard. Auscultation of lungs reveals crackles at the bases. There is no wheezing. ABDOMEN: Soft and nontender. There is no rebound or guarding. EXTREMITIES: 1 to 2+ leg edema. NEUROLOGIC: The patient to be sedated. LABORATORY DATA: White blood cell count is 12 and hemoglobin is 7. The platelet count is 210,000. BUN to creatinine ratio is 18 to 0.6, and the potassium is 3.2. Carbon dioxide is 36. Albumin is 3.6. RADIOGRAPHIC DATA: Chest x-ray shows bilateral airspace opacities worse on the right than the left. IMPRESSION: 1. Acute respiratory failure. 2. Viral pneumonia and COVID-19 infection. 3. Anemia secondary to chronic blood loss. 4. Fluid overload. 5. Scrotal edema. 6. Tachycardia. PLAN: 1. The patient will receive packed red blood cells today. 2. Wean off propofol and continue fentanyl and Versed along with rocuronium. 3. Continue Lasix drip and monitor urine output. 4. Nephrology consultation. 5. Continue current ventilator settings and wean as tolerated. 6. Continue Lovenox. 7. Continue antibiotics for secondary bacterial pneumonia. 8. Continue enteral feedings. Greater than 35 minutes in direct critical care time. Maximilian Lowry MD [facility]/ANGELA /[id number]
[2019-10-03] MEDS ORDERED: DIPHENHYDRAMINE HCL INJ 50 MG/ML VIAL IV ONE (09:10)
[2019-10-03] MEDS: FUROSEMIDE INJ 100 MG in SODIUM CHLORIDE 0.9% 100 ML 90 ML IV SCH ×4 (09:12→16:11)
[2019-10-03] MEDS ORDERED: SODIUM CHLORIDE 0.9% 250ML 250 ML IV ONE (09:30)
[2019-10-03] MEDS ORDERED: CHLOROTHIAZIDE SODIUM 500 MG VIAL IV ONE (09:45)
[2019-10-03] MEDS: CYANOCOBALAMIN INJ 1,000 MCG/ML VIAL IM SCH (09:46)
[2019-10-03] MEDS: DOCUSATE SODIUM LIQD 100 MG/10 ML UDC NG SCH ×2 (09:48→17:21)
[2019-10-03] MEDS: BALSAM PERU/CASTOR OIL 60 GM OINT...G. TP SCH (09:48)
[2019-10-03] MEDS: METOPROLOL TARTRATE 25 MG TAB PO SCH ×2 (09:48→20:34)
[2019-10-03] MEDS: PANTOPRAZOLE 40 MG 10ML VIAL IV SCH (09:48)
[2019-10-03] MEDS: ENOXAPARIN INJ 80 MG/0.8 ML SYR SC SCH ×2 (09:48→20:35)
--- NOTE | 2019-10-03 09:52 | Consultation ---
DATE OF CONSULTATION: Renal Consultation Thank you, Dr. Aparicio, for the consultation. HISTORY OF PRESENT ILLNESS: Mr. Miels is a 44-year-old male with a past medical history significant for prior history of hypertension, came into the hospital with worsening shortness of breath, upper respiratory tract infection, positive for COVID-19, subsequently intubated on the ventilator. The patient has been having profound hypokalemia and possibly some decrease urine output. Renal consultation has been asked for in the management of the patient's electrolyte abnormalities. The patient at this time does not have any acute kidney injury. The patient remains on the ventilator. Much of the history is obtained from the chart. At this time, signs above-mentioned symptoms on presentation. The patient's review of systems cannot be determined. PAST MEDICAL HISTORY: Hypertension. MEDICATIONS: The patient had been on outpatient lisinopril. REVIEW OF SYSTEMS: See HPI. Otherwise, all systems negative or not obtainable. FAMILY HISTORY: Noncontributory. SOCIAL HISTORY: No tobacco. No alcohol use. PHYSICAL EXAMINATION: VITAL SIGNS: Blood pressure is 136/54, respirations 36, and 119 pulse. The patient is afebrile. HEENT: No cervical lymphadenopathy. NECK: Supple without masses. No obvious JVD. Moist-appearing oral mucosa. SKIN: Moist with good skin turgor. CHEST WALL: Good expansion. No chest wall tenderness. LUNGS: Have rhonchi bilaterally in lung quevedo. CARDIOVASCULAR: S1 and S2. No rubs, gallop, or murmur. ABDOMEN: Soft. Positive bowel sounds. No organomegaly. EXTREMITIES: Evidence of 1+ edema. No clubbing or cyanosis. NEUROLOGICAL: Difficult to assess. The patient is intubated and sedated. LABORATORY DATA: Today, sodium is 142, potassium 3.2, chloride 97, bicarb of 36, BUN 18, and creatinine is 0.59. Magnesium is not available from today. Hematology; H and H 7 and 23.5, white count 12.09, and platelets are 210. IMPRESSION AND PLAN: 1. Oligoanuria. The patient is currently on Lasix drip at 15 mg/hour. The patient has been somewhat hypotensive, however, has been on vasopressor also. Blood pressure is actually on the higher side. I would recommend to continue with diuresis with Lasix drip. We will replace potassium as per ICU protocol. For now, no urgent indication for dialysis. However, if the patient becomes more and more fluid overloaded and does not respond well to Lasix drip, then may consider ultrafiltration with dialysis. The patient currently will benefit from titrating up the Lasix drip, also adding IV Diamox and a dose of chlorothiazide as well IV to see whether or not the patient becomes an oliguric. We will continue to monitor closely and make further recommendations. 2. Hypokalemia. We will replace and check magnesium level, and make further recommendations. 3. COVID pneumonia possibly with early onset acute kidney injury with oligoanuria now, ensuing the creatinine may eventually rise. For now, no urgent dialysis is required. However, if continues to decline with urine output as well as worsening kidney function, may end up requiring acute dialysis for acute tubular necrosis. Thank you once again for the consult. We will follow the patient closely with you and make further recommendations. Alex Roger MD TH/MODL /[id number] cc: Taylor Aparicio MD
--- NOTE | 2019-10-03 10:08 | Progress Note ---
DATE: Pulmonary Critical Care Progress Note SUBJECTIVE: The patient is currently on a PRVC mode of ventilation at a rate of 24 with a tidal volume of 400. PEEP is set at 10 and FiO2 is set at 55%. The patient has had problems with sedation throughout the night. He has a high tolerance to sedatives and has required 10 mg of Versed along with 300 mcg of fentanyl. He also required propofol at 50 and rocuronium. PHYSICAL EXAMINATION: VITAL SIGNS: Blood pressure is 136/54 and the saturation is 100% on the above ventilator settings. The pulse is 115-120. HEENT: Shows no facial swelling or erythema. There is an oral endotracheal tube. The patient has a PICC line as well as an arterial line. CARDIAC: Reveals regular rate and rhythm with normal S1, S2. LUNGS: Auscultation of lungs reveals crackles at the bases. There is no wheezing. ABDOMEN: Soft. It is nontender. There is no leg edema or calf tenderness. There is no cyanosis or clubbing. The patient does have scrotal edema, and nontender. There is 1 to 2+ edema. The patient is sedated. LABORATORY DATA: White blood cell count is 8.4, hemoglobin is 10.5, and the platelet count is 348. The blood sugars are 200-300 and the other electrolytes are within normal limits. Albumin is 2.5. RADIOGRAPHIC DATA: Chest x-ray shows confluent bibasilar opacities. Tubes and lines are in good position. IMPRESSION: 1. Acute respiratory failure. 2. Viral pneumonia COVID-19 infection. 3. Diabetes. 4. Acute kidney injury. PLAN: 1. Stop rocuronium and then wean other sedatives as tolerated. 2. Continue insulin drip with close monitoring of blood sugars. 3. Continue current ventilator settings and monitor ABGs. 4. Continue Lovenox. 5. Enteral feedings. 6. Greater than 35 minutes in direct critical care time. Maximilian Lowry MD [facility]/MODL /[id number]
[2019-10-03 10:12] LABS: ABG PCO2 56 mmHg (35-45); ABG PH 7.42 (7.35-7.45)
[2019-10-03 10:13] LABS: ABG HCO3 36 mmol/L (22-26); ABG PO2 110 mmHg (80-105); ABG TCO2 38
[2019-10-03] MEDS: ACETAZOLAMIDE SODIUM 500 MG/VIAL IV SCH (11:59)
[2019-10-03] MEDS: FENTANYL CITRATE INJ 2,000 MCG in SODIUM CHLORIDE 0.9% 250ML 210 ML IV PRN ×2 (14:24→21:26)
--- NOTE | 2019-10-03 15:12 | Diagnostic Imaging Report ---
EXAMINATION: CHEST SINGLE (PORTABLE), ABDOMEN-1VIEW (KUB) INDICATION: NG tube placement, respiratory failure COMPARISON: Chest radiograph of 10/02/2019 FINDINGS: LINES/TUBES:NG tube projects below the diaphragm with tip and side-port in the stomach. Remaining support lines and tubes unchanged. LUNGS:The lung volumes are low. Unchanged diffuse bilateral airspace opacities. PLEURA:No pleural effusion or pneumothorax. MEDIASTINUM:The cardiomediastinal silhouette is silhouetted by lung parenchyma and is difficult to evaluate. BONES/SOFT TISSUES:No acute osseous injury. ABDOMEN:No free air under the diaphragm. IMPRESSION: NG tube projects below the diaphragm with tip and side-port in stomach. Unchanged bilateral diffuse airspace opacities. Signed by: Farrah Pierson MD on 10/03/2019 3:09 PM
--- NOTE | 2019-10-03 17:16 | NUR ---
HEMATOLOGY/ONCOLOGY PROGRESS NOTE: HPI: Patient remains intubated in COVID ICU. Transfuse 1 unit PRBC for hgb at 7 today. ROS: 14 point ROS unable to obtain secondary to patient intubated, sedated. PHYSICAL EXAM: Vitals: Reviewed as per EMR. PE not performed due to COVID-19 contact precautions. LABORATORY/RADIOLOGY DATA: Reviewed per EMR. ASSESSMENT AND PLAN: Mr. Miles is a 42-year-old male with past medical history of hypertension who was admitted on 08/24/2019 due to cough and fever. Patient was found to be positive for COVID-19. Intubated due to worsening respiratory status. Patient has been treated with full-dose Lovenox since 09/08/19. Has required PRBC previously during admission. Patient now with dropping platelet count and recurrent anemia requiring PRBC transfusion. Hematology/Oncology has been consulted to assist with the management. 1. Thrombocytopenia: Likely secondary to consumption for infection. DIC panel showed no coagulopathy, elevated fibrinogen, does not appear DIC. Acute hepatitis panel negative. Abdominal US without evidence of liver cirrhosis or splenomegaly. HIT panel negative. Continue full-dose anticoagulation with Lovenox 1mg/kg subcu every 12 hours. Anti-Xa level slightly subtherapeutic for lovenox in obese patient, defer to pharmacy for dose adjustment. Thrombocytopenia RESOLVED. Monitor. 2. Anemia: Anemia panel appears mixed picture AOCD + RODRIGUEZ with noted low B12 level. Macrocytosis probably combination of B12 deficiency and possibly also related to bone marrow suppression from viral infection. Ferritin mildly elevated, likely as acute phase reactant. Repeat ferritin significantly more elevated hold IV iron. Reticulocyte count and LDH mildly elevated, haptoglobin elevated, does not appear hemolysis. S/P 1 unit PRBC transfused on 09/15/19. Continue B12 IM daily per GI on board. Hemoglobin trending down now 7, transfuse 1 unit PRBC. If patient continues to require PRBC transfusion, will likely DC full dose lovenox per #3. Will monitor closely for now on anticoagulation. 3. COVID-19 PNA: In the ICU, pharmacologically sedated and intubated with weaning off vent as tolerated, on pressure control. On TPN. Undergoing intermitt ent proning. CXR with unchanged opacities. Afebrile, Blood cultures NGTD. On IV antibiotics. Pulmonary and infectious disease on board. 4. Melena/ileus/abd distention: On Protonix IV. NGT in place. H/H monitoring per #2. GI on board. 5. Oligoanuria: On diuresis. Nephrology on board. 6. DVT proph: Full dose Lovenox as per #1/3. 7. GOC: Patient is full code. Family discussions ongoing. Above plan discussed with Dr. Lona Martinez. Thank you for the consult. I will be available. Please call with questions.
[2019-10-03] MEDS ORDERED: POTASSIUM CHLORIDE 20MEQ/100ML 100 ML IV ONE (18:00)
--- NOTE | 2019-10-03 18:11 | Consultation ---
DATE OF CONSULTATION: HISTORY OF PRESENT ILLNESS: Mr. Miles remains in intensive care unit. White count 12.09. Blood cultures negative so far. PHYSICAL EXAMINATION: VITAL SIGNS: Currently intubated. Vitals stable, currently afebrile. HEENT: He is not icteric. NECK: Supple. CHEST: Crackles bilateral. IMPRESSION: 1. Respiratory failure, COVID-19, diabetes mellitus. 2. Acute kidney injury, discussed with Critical Care, stable. Remains very ill. Continue as ordered. MD MAYURI Taylor/MODL /[id number]
[2019-10-03 20:17] LABS: ABG HCO3 41 mmol/L (22-26); ABG PCO2 54 mmHg (35-45); ABG PH 7.49 (7.35-7.45); ABG PO2 90 mmHg (80-105); ABG TCO2 42
--- NOTE | 2019-10-03 20:21 | Progress Note ---
DATE: 10/03/2019 CONSULTANTS: 1. Dr. Maximilian Lowry with machine taper. 2. Dr. Maguire with Infectious Disease ,. 3. Dr. Casas with Cardiology. 4. Dr. Roger with Renal. CHIEF COMPLAINT: Dyspnea. SUBJECTIVE: Intubated and sedated, in prone position. OBJECTIVE: VITAL SIGNS: Temperature 98.3, pulse is 130, respiration 36, blood pressure 170/85, pulse ox is 100% on the vent. GENERAL: Sedated and intubated. HEENT: ET tube in place. LUNGS: Decreased breath sounds. CARDIOVASCULAR: Tachycardia, heart rate in the 130s. ABDOMEN: Soft and obese. : Ho in place. NEURO: Sedated. MUSCULOSKELETAL: Generalized edema. SKIN: Dry. LABORATORY DATA: WBC 12.09, hemoglobin 7.0, hematocrit 23.5, and platelets 210. Sodium 143, potassium 3.2. BUN is 18, creatinine 0.59, blood glucose 129, AST 17, ALT 30, magnesium 2. Chest x-ray unchanged bilateral diffuse airspace opacities. ASSESSMENT AND PLAN: 1. Acute respiratory failure due to COVID-19 pneumonia. Remains intubated. Continue Merrem per ID. Vent management per Pulmonary. Chest x-ray has bilateral opacities. 2. Anemia. Hemoglobin is down to 7.0. We will transfuse 2 units of PRBCs. 3. A mild abdominal distention. NG tube in place . 4. Morbid obesity. 5. Hypokalemia. Replaced. 6. Generalized edema. One Lasix drip 15 mg/hour. Renal has been consulted for evaluation. 7. Deep venous thrombosis prophylaxis, on Lovenox 80 mg subcu. Dictated by SNEHAL Laguerre Taylor Aparicio MD MY/MODL /[id number] Seen and examined. Agree with the findings and plan as documented by SNEHAL Haywood. MTDD
[2019-10-03] MEDS: ROCURONIUM BROMIDE 1,250 MG in SODIUM CHLORIDE 0.9% 250ML 125 ML IV PRN (22:26)
[2019-10-04] VITALS (24 sets, daily range): BP systolic 120–178; BP diastolic 61–89
[2019-10-04] MEDS: FUROSEMIDE INJ 100 MG in SODIUM CHLORIDE 0.9% 100 ML 90 ML IV SCH ×3 (00:06→22:52)
[2019-10-04] MEDS: MEROPENEM 1GM 100 ML IV SCH ×3 (00:06→17:06)
[2019-10-04] MEDS: EYE LUBRICANT OPTH OINT 3.5GM TUBE OP SCH ×4 (00:06→17:07)
[2019-10-04] MEDS: MIDAZOLAM HCL 5MG/ML 10ML VIAL 100 ML IV PRN ×5 (00:28→19:18)
[2019-10-04 04:28] LABS: BASOPHILS # (AUTO) 0.1 (0.0-0.1); BASOPHILS % 0.4 % (0.0-1.0); EOSINOPHILS # (AUTO) 0.5 (0.0-0.4); EOSINOPHILS % 3.9 % (0.0-6.0); HEMATOCRIT 28.4 % (38.2-49.6); HEMOGLOBIN 8.7 g/dL (14.0-18.0); LYMPHOCYTES # (AUTO) 0.9 (1.0-3.2); LYMPHOCYTES % 7.1 % (18.0-39.1); MEAN CORPUSCULAR HEMOGLOBIN 28.2 pg (28-32); MEAN CORPUSCULAR HGB CONC 30.6 g/dL (31-35); MEAN CORPUSCULAR VOLUME 92.2 fL (81-99); MONOCYTES # (AUTO) 1.5 (0.2-0.8); MONOCYTES % 11.4 % (4.4-11.3); NEUTROPHILS # (AUTO) 9.9 (2.1-6.9); NEUTROPHILS % 75.3 % (38.7-80.0); PLATELET COUNT 203 x10e3/uL (140-360); RED BLOOD COUNT 3.08 x10e6/uL (4.3-5.7); RED CELL DISTRIBUTION WIDTH 15.8 % (11.7-14.4)
[2019-10-04] MEDS: METOPROLOL TARTRATE INJ 1 MG/ML VIAL IV PRN ×2 (04:36→15:42)
[2019-10-04 04:49] LABS: ALANINE AMINOTRANSFERASE 29 IU/L (0-55); ALBUMIN 3.3 g/dL (3.5-5.0); ALBUMIN/GLOBULIN RATIO 1.3 (0.8-2.0); ALKALINE PHOSPHATASE 135 IU/L (40-150); BLOOD UREA NITROGEN 17 mg/dL (7-26); BUN/CREATININE RATIO 31 (6-25); CALCIUM 8.4 mg/dL (8.4-10.2); CARBON DIOXIDE 40 mmol/L (22-29); CHLORIDE 93 mmol/L (98-107); CREATININE, SERUM 0.54 mg/dL (0.72-1.25); EST GLOMERULAR FILTRATION RATE > 60 ML/MIN (60-); GLUCOSE 106 mg/dL (74-118); SODIUM 144 mmol/L (136-145)
[2019-10-04] MEDS: FENTANYL CITRATE INJ 2,000 MCG in SODIUM CHLORIDE 0.9% 250ML 210 ML IV PRN ×3 (05:04→19:18)
[2019-10-04] MEDS: HYDRALAZINE HCL 20 MG/ML VIAL IV SCH ×3 (05:04→22:36)
[2019-10-04 05:05] LABS: MAGNESIUM 1.9 MG/DL (1.3-2.1); PHOSPHORUS 2.1 MG/DL (2.3-4.7)
[2019-10-04] MEDS ORDERED: POTASSIUM CHLORIDE 20MEQ/100ML 100 ML IV ONE ×3 (06:00→10:15)
[2019-10-04] MEDS ORDERED: PANTOPRAZOLE 40 MG 10ML VIAL IV STA (07:17)
[2019-10-04] MEDS ORDERED: PANTOPRAZOL 40MG/SOD CHL 0.9% 250 ML IV SCH (07:30)
[2019-10-04] MEDS: DOCUSATE SODIUM LIQD 100 MG/10 ML UDC NG SCH ×2 (07:32→17:00)
[2019-10-04] MEDS: METOPROLOL TARTRATE 25 MG TAB PO SCH ×2 (07:32→20:06)
[2019-10-04] MEDS: CYANOCOBALAMIN INJ 1,000 MCG/ML VIAL IM SCH (08:21)
[2019-10-04] MEDS: ENOXAPARIN INJ 80 MG/0.8 ML SYR SC SCH ×2 (08:21→22:02)
[2019-10-04] MEDS: BALSAM PERU/CASTOR OIL 60 GM OINT...G. TP SCH (08:21)
[2019-10-04] MEDS: ACETAZOLAMIDE SODIUM 500 MG/VIAL IV SCH (08:21)
[2019-10-04 08:44] LABS: ABG HCO3 42 mmol/L (22-26); ABG PCO2 58 mmHg (35-45); ABG PH 7.47 (7.35-7.45); ABG PO2 134 mmHg (80-105); ABG TCO2 44
--- NOTE | 2019-10-04 09:58 | Progress Note ---
DATE: SUBJECTIVE: The patient is currently on Lasix drip. He is over 5 L negative yesterday. His oxygenation has improved and his FiO2 is decreased to 65%. He is on a PRVC mode of ventilation at a rate of 36 with pressure control. His PEEP is set at 10 and his pressure above PEEP is set at 30. He remains on Versed, fentanyl and rocuronium. PHYSICAL EXAMINATION: VITAL SIGNS: The blood pressure is 144/71 and the heart rate is 110 to 120. HEENT: Shows an oral endotracheal tube. He has some facial swelling. LYMPHATIC: Shows no submandibular, cervical, or supraclavicular adenopathy. CARDIAC: Reveals regular rate and rhythm with normal S1 and S2. LUNGS: Auscultation of lungs reveals crackles at the bases. There is no wheezing. ABDOMEN: Soft and nontender. There is no rebound or guarding. EXTREMITIES: Shows 1 to 2+ leg edema. LABORATORY DATA: White blood cell count is 13.2 and the hemoglobin is 8.7. The platelet count is 203. The BUN to creatinine ratio is normal. The potassium is 3.0. The other electrolytes are within normal limits. Albumin is 3.3. RADIOGRAPHIC DATA: There are bilateral airspace opacities. IMPRESSION: 1. Acute respiratory failure. 2. Viral pneumonia and COVID-19 infection. 3. Diabetes. 4. Hypokalemia. 5. Acute kidney injury. 6. Total body fluid overload. PLAN: 1. Continue Lasix drip. 2. Continue to monitor I's and O's. 3. Replace potassium as needed. 4. Repeat ABG later this afternoon and continue to wean ventilator. 5. Complete antibiotics. 6. Continue to ventilate in the prone position. Greater than 35 minutes in direct critical care time. Maximilian Lowry MD [facility]/MODL /[id number]
[2019-10-04] MEDS: NOREPINEPHRINE 8 MG/D5W 250 ML 250 ML IV SCH (10:00)
[2019-10-04] MEDS: PANTOPRAZOL 40MG/SOD CHL 0.9% 50 ML IV SCH ×3 (10:14→17:07)
--- NOTE | 2019-10-04 16:15 | Progress Note ---
DATE: 10/04/2019 Nephrology Progress Note. SUBJECTIVE: The patient is followed for hypokalemia and decreased urine output. However, he is now having excellent diuretic response to IV Lasix infusion. Admitted to [place] [address] ICU because of pneumonia, mechanically ventilated. OBJECTIVE: VITAL SIGNS: Blood pressure is stable at 140/64, pulse 115 per minute, he is afebrile. NECK: Without masses. CHEST: Bilateral air entry to mechanical breath. CARDIOVASCULAR: S1, S2. ABDOMEN: Not distended. EXTREMITIES: 1+ pitting edema. NEUROLOGICAL: The patient is intubated, sedated. Currently in a prone position. LABORATORY DATA: Hemoglobin 8.7, white count 13,000, platelet count normal. Sodium 144, potassium low at 3, chloride 93, bicarb 40, creatinine 0.54, glucose 106, total calcium 8.4, phosphorus 2.1. Serum albumin 3.3. IMPRESSION AND PLAN: 1. Decreased urine output, which has now resolved. He is now having an excellent response to IV Lasix infusion. 2. Hypokalemia secondary to aggressive diuretics. 3. Mild hypophosphatemia. RECOMMENDATIONS: 1. The potassium and phosphate are being replaced per ICU protocol. 2. Monitor serum sodium for hypernatremia, given high diuresis on IV Lasix. 3. I have prophylactically put him on IV KCl 20 mg b.i.d., but he will likely need supplemental doses. We will follow. Marcos Marsh MD [facility]/MODL /[id number]
--- NOTE | 2019-10-04 16:24 | NUR ---
Infectious disease but his note Patient remains intensive care unit No new complaints very short of breath No new problems patient with SOB However, he is now having excellent diuretic response to IV Lasix infusion. Admitted to [place] [address] ICU because of pneumonia, mechanically ventilated. OBJECTIVE: Patient is intubated sedated VITAL SIGNS: Blood pressure is stable at 140/64, pulse 115 per minute, he is afebrile. NECK: Without masses. she continues fairly: The patient Chest few crackles bilateral CHEST: Bilateral air entry to mechanical breath. CARDIOVASCULAR: S1, S2. ABDOMEN: Not distended. EXTREMITIES: 1+ pitting edema. NEUROLOGICAL: The patient is intubated, sedated. Currently in a prone position. LABORATORY DATA: Hemoglobin 8.7, white count 13,000, platelet count normal. Sodium 144, potassium low at 3, chloride 93, bicarb 40, creatinine 0.54, glucose 106, total calcium 8.4, phosphorus 2.1. Serum albumin 3.3. IMPRESSION AND PLAN: covid 19 resp failure Ms. very discussed with medical team continued surveillance for pneumonia continue as ordered to keep with right-sided. 1. Decreased urine output, which has now resolved. He is now having an excellent response to IV Lasix infusion. 2. Hypokalemia secondary to aggressive diuretics. 3. Mild hypophosphatemia.
[2019-10-04 16:41] LABS: ABG HCO3 39 mmol/L (22-26); ABG PCO2 54 mmHg (35-45); ABG PH 7.46 (7.35-7.45); ABG PO2 109 mmHg (80-105); ABG TCO2 40
[2019-10-04] MEDS: FAMOTIDINE 20 MG/2 ML VIAL IV SCH (17:07)
[2019-10-04] MEDS: ROCURONIUM BROMIDE 1,250 MG in SODIUM CHLORIDE 0.9% 250ML 125 ML IV PRN (19:18)
[2019-10-04 20:21] LABS: ABG PCO2 55 mmHg (35-45); ABG PH 7.46 (7.35-7.45); ABG PO2 85 mmHg (80-105)
[2019-10-04 20:22] LABS: ABG HCO3 39 mmol/L (22-26); ABG TCO2 40
--- NOTE | 2019-10-04 20:25 | Progress Note ---
DATE: 10/04/2019 Cardiology Progress Note. SUBJECTIVE: Mr. Miles remains intubated and sedated. He is currently in prone position. OBJECTIVE: VITAL SIGNS: Temperature 98.9, heart rate 111, sinus tachycardia on telemetry, blood pressure 120/75, respiratory rate 36, O2 saturation 99%. GENERAL: Intubated and sedated in prone age. HEENT: Facial edema. NECK: Supple. CHEST: Rales and decreased breath sounds. CARDIOVASCULAR: Regular rate and rhythm. Normal S1, S2, tachycardic. ABDOMEN: Bowel sounds positive. EXTREMITIES: With 1+ edema. Normothermic extremities. CARDIOVASCULAR MEDICATIONS: Reviewed: 1. Metoprolol tartrate 25 mg q.12 hours. 2. Potassium replacement. 3. Lovenox 80 mg q.12 hours. 4. Furosemide 10 mg per hour. 5. Hydralazine 10 mg q.4 hours. 6. Metoprolol tartrate 5 mg IV q.6 hours. STUDIES: Reviewed sodium 144, potassium 3, chloride 93, bicarbonate 40, BUN 17, creatinine 0.54, glucose 106. White blood cells 13, hemoglobin 8.7, platelets 203. PT 14.5, PTT 37.7, INR 1.07. AST 20, ALT 29, alkaline phosphatase 135, total bilirubin is 1.1. ASSESSMENT AND PLAN: A 44-year-old man presents with community-acquired pneumonia, acute respiratory failure, COVID-19 infection, hypertension, acute on chronic diastolic heart failure, morbid obesity, anemia, scrotal edema, skin breakdown. Cardiovascular medications have been reviewed. Continue current cardiovascular medications. Blood pressure remains at goal. Bowel movement being optimized with diuretics. Replete electrolytes as needed. Very gradual vent weaning in the setting of significant prolonged respiratory support in the setting of COVID-19 infection. For further management per Dr. Gagnon's expertise. John Romero MD [facility]/MODL /[id number]
--- NOTE | 2019-10-04 21:00 | NUR ---
Per Dr. Lowry, patient to remain in prone position tonight and supine in AM.
--- NOTE | 2019-10-04 21:45 | Progress Note ---
DATE: 10/04/2019 SUBJECTIVE: Intubated, sedated, cannot give any history. OBJECTIVE: VITAL SIGNS: Temperature 99.1, pulse 118, respiratory rate 32, blood pressure 175/80. GENERAL: Sedated, intubated. SKIN: No rash. HEENT: Endotracheal tube in place. LUNGS: Decreased breath sounds. HEART: Tachycardic. Normal S1, S2. GI: Abdomen is soft, nondistended. NEUROLOGIC: Sedated. PSYCHIATRIC: Sedated. LABORATORY DATA: White count 13, hemoglobin 8.7, platelet count 203. Creatinine 0.54. ASSESSMENT AND PLAN: 1. Acute respiratory failure due to coronavirus disease pneumonia. Continue meropenem per Infectious Disease specialist. Continue vent management per slot floor person. Discussed with Dr. Lowry, the patient diuresed well with Lasix drip. 2. Chronic blood loss anemia. The patient was transfused again. The patient was started on Protonix drip as well. 3. Abdominal distention. Prior upper GI. 4. Gastrointestinal/deep venous thrombosis prophylaxis. Continue Lovenox. MD ALIN Allred/ANGELA /[id number]
[2019-10-05] VITALS (24 sets, daily range): BP systolic 102–180; BP diastolic 50–84
[2019-10-05] MEDS: MEROPENEM 1GM 100 ML IV SCH ×3 (01:56→16:47)
[2019-10-05] MEDS: FENTANYL CITRATE INJ 2,000 MCG in SODIUM CHLORIDE 0.9% 250ML 210 ML IV PRN ×3 (02:04→17:47)
[2019-10-05] MEDS: MIDAZOLAM HCL 5MG/ML 10ML VIAL 100 ML IV PRN ×5 (02:18→23:22)
[2019-10-05] MEDS: METOPROLOL TARTRATE INJ 1 MG/ML VIAL IV PRN (05:41)
[2019-10-05] MEDS: EYE LUBRICANT OPTH OINT 3.5GM TUBE OP SCH ×5 (05:43→23:38)
[2019-10-05] MEDS: HYDRALAZINE HCL 20 MG/ML VIAL IV SCH (06:17)
[2019-10-05 06:24] LABS: BASOPHILS # (AUTO) 0.1 (0.0-0.1); BASOPHILS % 0.5 % (0.0-1.0); EOSINOPHILS # (AUTO) 1.1 (0.0-0.4); EOSINOPHILS % 6.7 % (0.0-6.0); HEMATOCRIT 34.1 % (38.2-49.6); HEMOGLOBIN 10.4 g/dL (14.0-18.0); LYMPHOCYTES # (AUTO) 1.3 (1.0-3.2); LYMPHOCYTES % 7.9 % (18.0-39.1); MEAN CORPUSCULAR HEMOGLOBIN 28.3 pg (28-32); MEAN CORPUSCULAR HGB CONC 30.5 g/dL (31-35); MEAN CORPUSCULAR VOLUME 92.7 fL (81-99); MONOCYTES # (AUTO) 1.8 (0.2-0.8); MONOCYTES % 10.9 % (4.4-11.3); NEUTROPHILS # (AUTO) 11.7 (2.1-6.9); NEUTROPHILS % 71.9 % (38.7-80.0); PLATELET COUNT 258 x10e3/uL (140-360); RED BLOOD COUNT 3.68 x10e6/uL (4.3-5.7); RED CELL DISTRIBUTION WIDTH 15.5 % (11.7-14.4)
[2019-10-05 06:38] LABS: ALANINE AMINOTRANSFERASE 30 IU/L (0-55); ALBUMIN/GLOBULIN RATIO 1.1 (0.8-2.0); ALKALINE PHOSPHATASE 128 IU/L (40-150); ANION GAP 12.8 mmol/L (8-16); BLOOD UREA NITROGEN 17 mg/dL (7-26); BUN/CREATININE RATIO 38 (6-25); CALCIUM 8.4 mg/dL (8.4-10.2); CARBON DIOXIDE 37 mmol/L (22-29); CHLORIDE 95 mmol/L (98-107); CREATININE, SERUM 0.45 mg/dL (0.72-1.25); EST GLOMERULAR FILTRATION RATE > 60 ML/MIN (60-); GLUCOSE 106 mg/dL (74-118); SODIUM 142 mmol/L (136-145)
--- NOTE | 2019-10-05 06:48 | NUR ---
Patient's head repositioned throughout night (with RT present), body repositioned and passive ROM performed.
[2019-10-05 07:24] LABS: POTASSIUM 2.8 mmol/L (3.5-5.1)
[2019-10-05] MEDS: CYANOCOBALAMIN INJ 1,000 MCG/ML VIAL IM SCH (07:46)
[2019-10-05] MEDS: FUROSEMIDE INJ 100 MG in SODIUM CHLORIDE 0.9% 100 ML 90 ML IV SCH ×2 (07:46→16:47)
[2019-10-05] MEDS: ACETAZOLAMIDE SODIUM 500 MG/VIAL IV SCH (07:46)
[2019-10-05] MEDS: NOREPINEPHRINE 8 MG/D5W 250 ML 250 ML IV SCH (07:47)
[2019-10-05] MEDS: DOCUSATE SODIUM LIQD 100 MG/10 ML UDC NG SCH ×2 (07:47→16:47)
[2019-10-05] MEDS: METOPROLOL TARTRATE 25 MG TAB PO SCH ×2 (07:47→23:38)
[2019-10-05] MEDS: BALSAM PERU/CASTOR OIL 60 GM OINT...G. TP SCH (07:47)
[2019-10-05] MEDS: ENOXAPARIN INJ 80 MG/0.8 ML SYR SC SCH ×2 (07:47→23:38)
[2019-10-05] MEDS: SUCRALFATE 1 GM/10 ML SUSP NG SCH ×4 (08:10→23:38)
[2019-10-05] MEDS: POTASSIUM CHLORIDE 20MEQ/100ML 100 ML IV SCH ×5 (08:11→11:52)
[2019-10-05] MEDS: FAMOTIDINE 20 MG/2 ML VIAL IV SCH ×2 (08:25→16:47)
--- NOTE | 2019-10-05 10:12 | NUR ---
infectious disease progress note Patient seen and examined chart reviewed Patient remains intensive care unit Intubated, sedated, cannot give any history. OBJECTIVE: VITAL SIGNS: Temperature 99.1, pulse 118, respiratory rate 32, blood pressure 175/80. GENERAL: Sedated, intubated. SKIN: No rash. HEENT: Endotracheal tube in place. LUNGS: Decreased breath sounds. HEART: Tachycardic. Normal S1, S2. GI: Abdomen is soft, nondistended. NEUROLOGIC: Sedated. PSYCHIATRIC: Sedated. LABORATORY DATA: White count 13, hemoglobin 8.7, platelet count 203. Creatinine 0.54. ASSESSMENT AND PLAN: 1. Acute respiratory failure due to coronavirus disease pneumonia. Continue meropenem fracture7 days for aspiration Continue vent management per drug and alcohol counsellor. Discussed with Dr. Lowry, the patient diuresed well with Lasix drip. 2. Chronic blood loss anemia. The patient was transfused again. The patient was started on Protonix drip as well. 3. Abdominal distention. Prior upper GI. 4. Gastrointestinal/deep venous thrombosis prophylaxis. continue as ordered
--- NOTE | 2019-10-05 10:12 | Progress Note ---
DATE: SUBJECTIVE: The patient continues to diurese. He is on a Lasix drip at 10 mg an hour. He has negative almost 4 L yesterday. His potassium is being replaced. His FiO2 is decreased to 50% and his PEEP is decreased to 8. His pressure above PEEP is decreased to 26 and his rate is still 30. He remains on fentanyl, Versed, and rocuronium. PHYSICAL EXAMINATION: VITAL SIGNS: The blood pressure is 150/76, saturation is 98%, and the heart rate is 110. HEENT: Shows no facial swelling or erythema. There is an oral endotracheal tube. The patient has a PICC line as well as an arterial line. CARDIAC: Reveals regular rate and rhythm with normal S1 and S2. LUNGS: Auscultation of lungs reveals rhonchorous breath sounds bilaterally. There is no wheezing. ABDOMEN: Soft and nontender. There is no rebound or guarding. EXTREMITIES: Shows no leg edema or calf tenderness. There is no cyanosis or clubbing. SKIN: Shows no rashes. NEUROLOGICAL: Shows no focal abnormalities. LABORATORY DATA: White blood cell count is 16.2 and hemoglobin is 10.4. The platelet count is 258. The BUN to creatinine ratio is 17 to 0.45. The potassium is 2.8. Albumin is 3.0. RADIOGRAPHIC DATA: Chest x-ray shows bilateral pulmonary infiltrates. IMPRESSION: 1. Acute respiratory failure. 2. Viral pneumonia and COVID-19 infection. 3. Total body overload and anasarca. 4. Hypokalemia. 5. Acute kidney injury. 6. Decubitus breakdown in the genitalia area. PLAN: 1. Switch the patient from prone position to supine position. 2. Continue Lasix drip along with Diamox. 3. Continue to replace potassium. 4. Repeat ABG later this afternoon. 5. Wean rocuronium. 6. Continue Versed and fentanyl. 7. Continue enteral feedings. Greater than 35 minutes in direct critical care time. Maximilian Lowry MD [facility]/MODL /[id number]
[2019-10-05 10:32] LABS: ABG HCO3 36 mmol/L (22-26); ABG PCO2 58 mmHg (35-45); ABG PO2 91 mmHg (80-105); ABG TCO2 38
[2019-10-05 11:41] LABS: ANISOCYTOSIS SLIGHT; EOSINOPHILS % (MANUAL) 7 % (0-7); LYMPHOCYTES % (MANUAL) 8 % (19-48); MONOCYTES % (MANUAL) 12 % (3.4-9.0); NEUTROPHILS % (MANUAL) 73 % (40-74)
[2019-10-05 11:51] LABS: PLATELET ESTIMATE ADEQUATE; PLATELET MORPHOLOGY COMMENT FEW LARGE; RBC MORPHOLOGY COMMENT NORMAL
[2019-10-05 11:52] LABS: POIKILOCYTOSIS SLIGHT
[2019-10-05] MEDS: ROCURONIUM BROMIDE 1,250 MG in SODIUM CHLORIDE 0.9% 250ML 125 ML IV PRN (17:48)
--- NOTE | 2019-10-05 18:36 | Diagnostic Imaging Report ---
EXAMINATION: CHEST SINGLE (PORTABLE) COMPARISON: Chest x-ray 10/03/2019, chest x-ray 09/28/2019 INDICATION: ^resp failure ^[id number] ^[id number] DISCUSSION: Frontal view of the chest obtained at 1800 hours. HEART AND MEDIASTINUM: Stable cardiomegaly. The aorta is tortuous LINES: Endotracheal tube terminates 3 to 4 cm above the fred. Enteric tube extends past the diaphragm. Left PICC line terminates in the SVC. LUNGS/PLEURA: Widespread pulmonary infiltrates are stable. Stable eventration of the right diaphragm. No large effusions or pneumothorax. BONES AND SOFT TISSUES: No focal osseous lesion. The soft tissues are normal. IMPRESSION: 1. Support devices as described above. 2. No change in dense pulmonary infiltrates. No pneumothorax or large pleural effusions. Signed by: Dr. Lali Hampton MD on 10/05/2019 6:32 PM
--- NOTE | 2019-10-05 19:04 | Progress Note ---
DATE: 10/05/2019 Nephrology Progress Note. SUBJECTIVE: The patient remains on mechanical ventilation for COVID-19 pneumonia. Urine output and preserved renal function. He was initially consulted for hypokalemia. OBJECTIVE: VITAL SIGNS: Blood pressure stable, 120/68, pulse 116 per minute, afebrile. NECK: Unable to determine JVP. LUNGS: Bilateral air entry to mechanical breath. CARDIOVASCULAR: Normal S1 and S2. ABDOMEN: Nondistended. EXTREMITIES: 1+ pitting edema bilaterally. Chest x-ray from 7th of this month, bilateral opacities consistent with COVID pneumonia possibly noninfectious fluid overload. LABORATORY DATA: CBC noted stable. Serum chemistry shows preserved renal function, creatinine 0.45, BUN 17, bicarb 37, sodium 142, potassium low at 2.8, calcium 8.4. Albumin 3. IMPRESSION: 1. Hypokalemia, being replaced per ICU protocol. Monitor serum magnesium level and replace as needed. 2. Preserved renal function. 3. Fluid overload, responding very well to IV Lasix. Continue infusion as necessary from a pulmonary standpoint. Monitor and replace potassium and magnesium while on diuretics. 4. Marcos Marsh MD [facility]/MODL /[id number]
[2019-10-05 19:34] LABS: ABG HCO3 37 mmol/L (22-26); ABG PCO2 79 mmHg (35-45); ABG PH 7.28 (7.35-7.45); ABG PO2 93 mmHg (80-105); ABG TCO2 40
--- NOTE | 2019-10-05 22:41 | Progress Note ---
DATE: 10/05/2019 SUBJECTIVE: Intubated, sedated, cannot give history. OBJECTIVE: VITAL SIGNS: Temperature 97.9, pulse 115, respiratory rate 33, and blood pressure 143/68. GENERAL: Intubated and sedated. SKIN: No rash. HEENT: Endotracheal tube in place. LUNGS: Decreased breath sounds. HEART: Tachycardic. Normal S1 and S2. GI: Abdomen is soft and slightly distended. NEUROLOGIC: Sedated. PSYCHIATRIC: Sedated. LABORATORY DATA: Laboratory harrison, white count 16, hemoglobin 10, and platelet count 258. Creatinine 0.45. ASSESSMENT AND PLAN: 1. Acute respiratory failure due to COVID-19 pneumonia. We will continue meropenem per Infectious Disease specialist. We will continue vent management per retail greeter. His leukocytosis today is likely due to hemoconcentration given the fact that all 3 cell lines have increased today. 2. Chronic blood loss anemia, stable. 3. Abdominal distention, plan per GI. 4. Gastrointestinal and deep venous thrombosis prophylaxis. Continue Lovenox. MD ALIN Allred/ANGELA /[id number]
[2019-10-06] VITALS (24 sets, daily range): BP systolic 113–168; BP diastolic 48–85
[2019-10-06] MEDS: FUROSEMIDE INJ 100 MG in SODIUM CHLORIDE 0.9% 100 ML 90 ML IV SCH ×3 (01:22→21:54)
[2019-10-06] MEDS: FENTANYL CITRATE INJ 2,000 MCG in SODIUM CHLORIDE 0.9% 250ML 210 ML IV PRN ×3 (01:22→16:52)
[2019-10-06] MEDS: MEROPENEM 1GM 100 ML IV SCH ×3 (01:22→16:51)
[2019-10-06] MEDS: EYE LUBRICANT OPTH OINT 3.5GM TUBE OP SCH ×3 (05:33→16:51)
[2019-10-06 05:41] LABS: BASOPHILS # (AUTO) 0.1 (0.0-0.1); BASOPHILS % 0.6 % (0.0-1.0); EOSINOPHILS # (AUTO) 1.1 (0.0-0.4); EOSINOPHILS % 6.6 % (0.0-6.0); HEMATOCRIT 32.7 % (38.2-49.6); HEMOGLOBIN 9.8 g/dL (14.0-18.0); LYMPHOCYTES % 5.6 % (18.0-39.1); MEAN CORPUSCULAR HEMOGLOBIN 28.2 pg (28-32); MEAN CORPUSCULAR VOLUME 94.2 fL (81-99); MONOCYTES # (AUTO) 1.7 (0.2-0.8); MONOCYTES % 10.1 % (4.4-11.3); NEUTROPHILS # (AUTO) 12.8 (2.1-6.9); NEUTROPHILS % 75.3 % (38.7-80.0); PLATELET COUNT 242 x10e3/uL (140-360); RED BLOOD COUNT 3.47 x10e6/uL (4.3-5.7); RED CELL DISTRIBUTION WIDTH 15.5 % (11.7-14.4)
[2019-10-06] MEDS: MIDAZOLAM HCL 5MG/ML 10ML VIAL 100 ML IV PRN ×4 (05:41→21:55)
[2019-10-06 06:05] LABS: ALANINE AMINOTRANSFERASE 32 IU/L (0-55); ALBUMIN 2.8 g/dL (3.5-5.0); ALKALINE PHOSPHATASE 112 IU/L (40-150); ANION GAP 9.3 mmol/L (8-16); BLOOD UREA NITROGEN 15 mg/dL (7-26); BUN/CREATININE RATIO 36 (6-25); CALCIUM 8.2 mg/dL (8.4-10.2); CARBON DIOXIDE 37 mmol/L (22-29); CHLORIDE 96 mmol/L (98-107); CREATININE, SERUM 0.42 mg/dL (0.72-1.25); EST GLOMERULAR FILTRATION RATE > 60 ML/MIN (60-); GLUCOSE 94 mg/dL (74-118); POTASSIUM 3.3 mmol/L (3.5-5.1); SODIUM 139 mmol/L (136-145)
[2019-10-06] MEDS: SUCRALFATE 1 GM/10 ML SUSP NG SCH ×4 (07:45→20:24)
[2019-10-06] MEDS: METOPROLOL TARTRATE 25 MG TAB PO SCH ×2 (07:46→20:25)
[2019-10-06] MEDS: DOCUSATE SODIUM LIQD 100 MG/10 ML UDC NG SCH ×2 (07:46→16:51)
[2019-10-06] MEDS ORDERED: POTASSIUM CHLORIDE 20MEQ/100ML 200 ML IV ONE (08:45)
--- NOTE | 2019-10-06 08:59 | Diagnostic Imaging Report ---
EXAMINATION: CHEST SINGLE (PORTABLE) INDICATION: Respiratory failure COMPARISON: Chest radiograph 09/28/2019 FINDINGS: LINES/TUBES:Support lines and tubes unchanged. LUNGS:The lung volumes are low. Mild improvement in bilateral multifocal airspace opacities. PLEURA:No pleural effusion or pneumothorax. MEDIASTINUM:The cardiomediastinal silhouette appears normal in size and shape. BONES/SOFT TISSUES:No acute osseous injury. ABDOMEN:No free air under the diaphragm. IMPRESSION: Low lung volumes. Mild improvement in bilateral multifocal airspace opacities. Signed by: Farrah Pierson MD on 10/06/2019 8:56 AM
[2019-10-06] MEDS ORDERED: FUROSEMIDE INJ 100 MG in SODIUM CHLORIDE 0.9% 100 ML 90 ML IV SCH (09:00)
--- NOTE | 2019-10-06 09:36 | Progress Note ---
DATE: 10/06/2019 Renal Progress Note SUBJECTIVE: The patient is followed for both hypokalemia and also for fluid overload. The patient has COVID pneumonia, has dense pulmonary infiltrates on chest x-ray. No large effusion or pneumothorax on the chest x-ray. He continues to have a low potassium level, today is better at 3.3, bicarb is elevated at 37, BUN 15, creatinine 0.4. The patient remains on the vent, FiO2 of 85%. OBJECTIVE: VITAL SIGNS: Noted. Blood pressure is 131/64, pulse in the 130s. The patient is afebrile. LUNGS: Rhonchi bilaterally. CARDIOVASCULAR: S1, S2. No rub ABDOMEN: Soft, nontender. EXTREMITIES: 1 to 2+ edema. LABORATORY DATA: Labs have been reviewed. Potassium 3.3, bicarb is 37, BUN 15, creatinine 0.42. Last magnesium check was at 1.9 on 10/03. IMPRESSION AND PLAN: 1. Hypokalemia. On top of ICU protocol, we will replace additional potassium since the patient is on Lasix drip. We will also decrease the Lasix to . 2. Fluid overload. Continue Lasix drip. However, we will slowly titrate down since the patient is developing a metabolic alkalosis. We will also consider getting more Diamox. 3. Hypertension, blood pressure stable. Continue to monitor. 4. Metabolic alkalosis. We will titrate down Lasix drip and consider getting Diamox. 5. COVID pneumonia. Plan would be per primary and critical care. Alex Roger MD /MODL /[id number]
[2019-10-06] MEDS: CYANOCOBALAMIN INJ 1,000 MCG/ML VIAL IM SCH (10:20)
[2019-10-06] MEDS: ACETAZOLAMIDE SODIUM 500 MG/VIAL IV SCH (10:20)
[2019-10-06] MEDS: FAMOTIDINE 20 MG/2 ML VIAL IV SCH ×2 (10:21→16:51)
[2019-10-06] MEDS: BALSAM PERU/CASTOR OIL 60 GM OINT...G. TP SCH (10:21)
[2019-10-06 10:24] LABS: ABG HCO3 39 mmol/L (22-26); ABG PCO2 71 mmHg (35-45); ABG PH 7.35 (7.35-7.45); ABG PO2 78 mmHg (80-105); ABG TCO2 41
--- NOTE | 2019-10-06 10:37 | Progress Note ---
DATE: 10/06/2019 Cardiology Progress Note SUBJECTIVE: Intubated, sedated, in prone position. OBJECTIVE: VITAL SIGNS: Temperature 97.9, heart rate 130, respiratory rate 34, blood pressure 131/64, and O2 saturation 94% on vent support. GENERAL: Intubated, sedated, in prone position. NECK: Supple. CHEST: Rales and decreased breath sounds. CARDIOVASCULAR: Regular rate and rhythm. Normal S1 and S2. ABDOMEN: Soft. Bowel sounds positive. EXTREMITIES: With 1+ edema. CARDIOVASCULAR MEDICATIONS: Reviewed. Metoprolol tartrate 25 mg every 12 hours, Lovenox 80 mg subcutaneous q.12 hours, furosemide 9 mg/hour IV drip, currently off pressors. STUDIES: Reviewed. White blood cells 17, hemoglobin 9.8, and platelets 242. INR 1. Creatinine 0.4, sodium 139, and potassium 3.3. ASSESSMENT AND PLAN: A 44-year-old man with infection of COVID-19, community-acquired pneumonia, hypertension, [id number] diastolic heart failure, and morbid obesity. RECOMMEND: Continue current cardiovascular medications. Blood pressure remains at goal. Continue diuresis. He seems to remain volume overloaded on exam. Vent support weaning per Pulmonary. MD OPAL [place]le/ANGELA /[id number]
[2019-10-06 11:25] LABS: EOSINOPHILS % (MANUAL) 5 % (0-7); LYMPHOCYTES % (MANUAL) 4 % (19-48); MONOCYTES % (MANUAL) 9 % (3.4-9.0); MYELOCYTES % (MANUAL) 1 % (0-0); NEUTROPHILS % (MANUAL) 81 % (40-74)
[2019-10-06 11:26] LABS: ANISOCYTOSIS SLIGHT; PLATELET ESTIMATE ADEQUATE; PLATELET MORPHOLOGY COMMENT RARE EDTA CLUMPING; RBC MORPHOLOGY COMMENT NORMAL
--- NOTE | 2019-10-06 11:48 | Progress Note ---
DATE: SUBJECTIVE: The patient has remained in the supine position overnight. He is still on FiO2 of 80%. He is on pressure control at a rate of 32. His PEEP is set at 10 and his pressure above PEEP is 32. His tidal volumes are 330 to 340 He remains on a Lasix drip at 10 mg an hour. He is on Versed and fentanyl. He is also on rocuronium at 0.05. PHYSICAL EXAMINATION: VITAL SIGNS: The patient is afebrile. The blood pressure is 131/64, saturation is 94% and the pulse is 120 to 125. HEENT: Shows no facial swelling or erythema. There is an oral endotracheal tube. The patient has a PICC line in place. He has an arterial line. CARDIAC: Reveals a regular rate and rhythm with normal S1 and S2. LUNGS: Auscultation of lungs reveals crackles at the bases. There is no wheezing. ABDOMEN: Soft and nontender. There is no rebound or guarding. EXTREMITIES: Shows no leg edema or calf tenderness. There is no cyanosis or clubbing. SKIN: Shows no rashes. NEUROLOGICAL: Shows no focal abnormalities. LABORATORY DATA: White blood cell count is 17, hemoglobin 9.8, and platelet count is 242. BUN to creatinine ratio is 15 to 0.42 and the potassium is 3.3. The other electrolytes are within normal limits. Albumin is 2.8. RADIOGRAPHIC DATA: There is slight improvement in the pulmonary infiltrates. IMPRESSION: 1. Acute respiratory failure. 2. Viral pneumonia and COVID-19 infection. 3. Hypokalemia. 4. Acute kidney injury. 5. Anasarca. 6. Decubitus breakdown in the genitalia area. PLAN: 1. Continue Lasix drip with Diamox daily. 2. Albumin infusions. 3. Continue current ventilator settings and monitor ABGs. 4. Wean rocuronium. 5. Continue Versed and fentanyl. 6. Place the patient in the prone position again this afternoon. 7. Continue enteral feedings. Greater than 35 minutes in direct critical care time. Maximilian Lowry MD [facility]/MODL /[id number]
[2019-10-06] MEDS ORDERED: ALBUMIN 25% 25GM 100ML 0.25 GM/ML BTL IV SCH (12:00)
--- NOTE | 2019-10-06 12:22 | NUR ---
infectious disease progress note patient seen and examined chart reviewed this is day #43 of hospitalization patient seen and examined chart reviewed events noted discussed with Medical team The patient has remained in the supine position overnight. He is still on FiO2 of 80%. He is on pressure control at a rate of 32. His PEEP is set at 10 and his pressure above PEEP is 32. His tidal volumes are 330 to 340 He remains on a Lasix drip at 10 mg an hour. He is on Versed and fentanyl. He is also on rocuronium at 0.05. PHYSICAL EXAMINATION: VITAL SIGNS: The patient is afebrile. The blood pressure is 131/64, saturation is 94% and the pulse is 120 to 125. HEENT: Shows no facial swelling or erythema. There is an oral endotracheal tube. The patient has a PICC line in place. He has an arterial line. CARDIAC: Reveals a regular rate and rhythm with normal S1 and S2. LUNGS: Auscultation of lungs reveals crackles at the bases. There is no wheezing. ABDOMEN: Soft and nontender. There is no rebound or guarding. EXTREMITIES: Shows no leg edema or calf tenderness. There is no cyanosis or clubbing. SKIN: Shows no rashes. NEUROLOGICAL: Shows no focal abnormalities. LABORATORY DATA: White blood cell count is 17, hemoglobin 9.8, and platelet count is 242. BUN to creatinine ratio is 15 to 0.42 and the potassium is 3.3. The other electrolytes are within normal limits. Albumin is 2.8. RADIOGRAPHIC DATA: There is slight improvement in the pulmonary infiltrates. IMPRESSION: 1. Acute respiratory failure. 2. Viral pneumonia and COVID-19 infection. 3. Hypokalemia. 4. Acute kidney injury. 5. Anasarca. 6. Decubitus breakdown in the genitalia area. Continue with the plan of care as ordered this was discussed with Dr. Gagnon please refer to the orders will follow
[2019-10-06] MEDS: ALBUMIN 25% 12.5GM 50ML 100 ML IV SCH ×2 (12:36→17:52)
--- NOTE | 2019-10-06 12:51 | NUR ---
Compliance Vice President called Reyna Miles, listed as "Person to Notify" in EMR to offer emotional/spiritual help. Phone number listed ([phone]) is not a working number. Will call Rocio pt's . [facility] O: [phone]
--- NOTE | 2019-10-06 12:54 | NUR ---
Healthcare Technician called Rocio, pt's , to offer emotional/spiritual support. No answer. [facility] O: [phone]
[2019-10-06] MEDS ORDERED: POTASSIUM CHLORIDE 20MEQ/100ML 100 ML IV ONE (13:00)
--- NOTE | 2019-10-06 15:37 | NUR ---
STEEL FINISHER CARSON MATHSI [phone], [email or web address] [email or web address] - [employer] CALLED AND WANTS A PHYSICIAN CERTIFICATE OF MEDICAL EXAMINATION.
[2019-10-06] MEDS: METOPROLOL TARTRATE INJ 1 MG/ML VIAL IV PRN (16:51)
--- NOTE | 2019-10-06 17:37 | NUR ---
Nutrition Intervention Note RD Recommendation(s) for Physician: - Continue Vital AF 1.2. Recommend increasing goal rate to 60 ml/hr (provides 1728 kcal and 108 gm protein -Water flushes per MD. Plan of Care: RD following, TF rec's, monitor adequacy and tolerance Nutrition reason for involvement: follow up RD Assessment 10/05: Follow up. Chart reviewed. Pt remains intubated and was in the supine position overnight. Pt is no receiving propofol at this time. Pts tube feed is at 20 mL/hr per chart not meeting kcal or protein needs. Tube feed recommendations provided. Will continue to monitor. 10/01: Follow up. Pt remains intubated, sedated on Propofol, and paralyzed. Pt requiring to be proned. TF rate decreased to 20 ml/hr currently- not meeting kcal or protein needs. TF rec's provided. Chart reviewed. Will continue to monitor. 09/29: Follow up. Pt remains intubated, sedated on high dose Propofol, and paralyzed. Pt requiring to be in intermittent prone positioning. TF infusing at 35 ml/hr, not meeting protein needs. TF rec's provided. Chart reviewed. Will continue to monitor. 09/25: Follow up. Chart reviewed. Pt remains intubated and sedated. Pt is receiving propofol at 7.8 mL/hr which provides 205 lipid kcal. TF is infusing at 20 mL/hr. Recommend modifying tube feed formula to Vital High Protein at this time. Will continue to monitor. 09/22: Follow up. Pt remains intubated, sedated, and paralyzed. Pt requiring proning. TF infusing at 10 ml/hr and TPN weaned to 20 ml/hr. Chart reviewed. TF and TPN rec's provided pending ability to advance TF. Will continue to monitor. 09/18: Follow up. Chart reviewed. Pt remains intubated and sedated. Pt was started on tube feeding. Last recorded rate was 20 mL/hr this afternoon. Pt continues to receive TPN @ 42 mL/hr. Propofol rate is at 13.4 mL/hr (provides 354 kcal). Recommendations provided. Will continue to monitor 09/15: Follow up. Pt remains intubated, sedated on Propofol at 19.6 ml/hr, and paralyzed. Pt continues on TPN at 42 ml/hr, not meeting needs. Pt continues with persistent ileus and is receiving enemas and suppositories. Pt requiring daily proning 2/2 respiratory status. TF order remains, recommend NPO for now. TPN goal rec's provided, continues at 42 ml/hr. Chart reviewed. Will continue to monitor. 09/11: Follow up. Chart reviewed. Pt remains intubated and sedated. Pt is receiving 30 mL/hr of propofol per documentation which provides 792 lipid kcal. Tube feeding has been held due to abdominal distention and pt was started on TPN @ 42 mL/hr today. MD note indicates pt has an ileus. Recommendations provided. Will continue to monitor. 09/07: Follow up. Chart reviewed. Pt remains intubated and sedated. Pt is receiving 23.6 mL/hr of propofol per documentation which provides 623 lipid kcal. TF was at 20 mL/hr last night per chart. Per MD note, pts abdomen is distended and has not had a BM. Will continue to monitor. 09/04: Follow up. Pt remains intubated and sedated. Pt is receiving 9 mL/hr of propofol per documentation, which provides 238 lipid kcal. TF was at 20 mL/hr per chart yesterday. No additional administration rate is available. Will continue to monitor. 09/02: Follow up. Pt remains intubated, paralyzed, and sedated on Propofol and Versed. Pt requiring proning. TF rate at 10 ml/hr per TF documentation yesterday- inadequate EN currently, no additional EN administration available per chart. Recommend continuing EN while pt is proned by placing them in reverse Trendelenburg position. If unable to advance TF to goal rate, recommend considering PN. Chart reviewed. Will continue to monitor. 08/29: Initial encounter with patient. Pt is sedated and orally intubated. Pt was not able to provide a nutrition Hx at the time of visit. Unable to observe oral cavity or perform a nutrition focused physical exam. Jevity 1.2 infusing at 20ml hr with a goal of 50ml/hr. Propofol provides 1.1kcal/ml EN provides 576 kcals, 26.64g of protein, and 387.36ml of free H2O Principal Problems/Diagnoses: CoVID 19 pneumonia PMH: No significant medical Hx, overweight/obesity GI: LBM 8/- liquid stool Skin: stage 2 right ear pressure ulcer, penis ischemic edema, bilateral knees- ischemic edema , scrotal abrasion Labs: 10/05: Na 139, K 3.3, BUN 15, Cr 0.42, Glu 113, Ca 8.2 10/01: Na 139, K 4, BUN 12, Cr 0.59, Gluc 141, POC Gluc 127-175 09/29: Na 138, K 2.9, BUN 5, Cr 0.39, Gluc 87, POC 107-116 09/25: Na 142, K 3.7, BUN 11, Cr 0.49, Ca 7.8, Glu 107 09/22: Na 145, K 3.3, Cl 93, CO2 38, BUN 5, Cr 0.5, Gluc 129, POC 97-130 09/18: Na 146, K 3.6, Cr 0.50, BUN 13, Glu 100, Ca 7.7, Total Bili 1.6, AST 43 09/15: Na 148, K 3.8, Cl 102, CO2 38, BUN 15, Cr 0.57, Gluc 111 09/11: Na 148, BUN 18, Cr 0.51, Glu 120, Ca 8.0 09/07: Na 144, K 3.8, BUN 13, Cr 0.52, Glu 92, Ca 7.8 09/04: Na 141, K 4.0, BUN 21, Cr 0.63, Glu 122 09/02: Na 139, K 4.2, BUN 19, Cr 0.61, Gluc 101 Meds: furosemide, carafate, pepcid, antibiotic, fentanyl, vitamin B12, metoprolol, colace, rocuronium Ht: 67 in. Wt: 236 lbs (10/05) 251 lbs (09/28) 253.5 lbs (09/25) 254.31 lb (09/22) 258 lbs (09/18) 254 lb (09/15)- questionable wt gain, 218 lbs (09/11/19) 219 lbs (08/28) 220 lbs (09/04) 215.31lb (09/02), 200.44lbs (08/29) BMI: 31.4kg/m2 (weight used- 200 lbs) IBW: 148 lbs Malnutrition Evaluation (09/30/2019) Unable to assess due to current isolation precautions. Will re-evaluate at follow-up as appropriate. Nutrition Prescription (Diet Order): Vital AF at 20 ml/hr, 576 kcal and 36 gm protein Estimated Nutritional Needs: 1170-1393 calories/day (22-25 kcal/kg IBW) 101-135 g protein/day (1.5-2 g pro/kg IBW) Diet Adequacy: not meeting calorie needs, Not meeting protein needs Diet Education Needs Assessment: Diet education not indicated. Nutrition Care Level: high- not meeting needs Nutrition Diagnosis: Inadequate energy and protein intake related to intubation as evidenced by requiring alternative means of nutrition. Goal: Patient will meet 75-100% of estimated needs by follow up Progress: goal not met Interventions: Composition, Rate, Route, Recommended modifications Monitoring/Evaluation: Total energy intake, Total protein intake, Formula/Solution, Prescription medication, Weight change Signed: Nina Reese RD, LD
[2019-10-06] MEDS: ENOXAPARIN INJ 80 MG/0.8 ML SYR SC SCH (20:32)
--- NOTE | 2019-10-06 22:06 | Progress Note ---
DATE: 10/06/2019 SUBJECTIVE: Intubated and sedated. Cannot give history. OBJECTIVE: VITAL SIGNS: Temperature 99.2, pulse 124, respiratory rate 34, and blood pressure 142/83. GENERAL: Sedated and intubated. SKIN: No rash. HEENT: Endotracheal tube in place. LUNGS: Decreased breath sounds for seconds. HEART: Tachycardic. Normal S1 and S2. GI: Abdomen is soft and nondistended. NEUROLOGIC: Sedated. PSYCHIATRIC: Sedated. LABORATORY DATA: Laboratory harrison, white count 17, hemoglobin 10, and platelet count 242. Creatinine 0.42. ASSESSMENT AND PLAN: 1. Acute respiratory failure due to COVID-19 pneumonia. Continue vent per recreation superintendent and also continue meropenem per Infectious Disease specialist. 2. Chronic blood loss anemia, stable. 3. Gastrointestinal and deep venous thrombosis prophylaxis. Continue Lovenox. Yiching MD ALIN Mcmillan/ANGELA /[id number]
[2019-10-06 22:50] LABS: ABG HCO3 39 mmol/L (22-26); ABG PCO2 54 mmHg (35-45); ABG PH 7.47 (7.35-7.45); ABG PO2 156 mmHg (80-105); ABG TCO2 41
[2019-10-06] MEDS: FENTANYL 2000MCG/NS 250 250 ML IV PRN (23:07)
[2019-10-07] VITALS (25 sets, daily range): BP systolic 101–178; BP diastolic 7–89
[2019-10-07] MEDS: ALBUMIN 25% 12.5GM 50ML 100 ML IV SCH ×2 (02:59→06:02)
[2019-10-07] MEDS: EYE LUBRICANT OPTH OINT 3.5GM TUBE OP SCH ×4 (02:59→16:30)
[2019-10-07] MEDS: MIDAZOLAM HCL 5MG/ML 10ML VIAL 100 ML IV PRN (02:59)
[2019-10-07] MEDS: MEROPENEM 1GM 100 ML IV SCH ×3 (03:00→16:30)
[2019-10-07 05:00] LABS: BASOPHILS % 0.4 % (0.0-1.0); EOSINOPHILS # (AUTO) 0.5 (0.0-0.4); EOSINOPHILS % 7.2 % (0.0-6.0); HEMATOCRIT 25.9 % (38.2-49.6); HEMOGLOBIN 7.8 g/dL (14.0-18.0); LYMPHOCYTES # (AUTO) 0.7 (1.0-3.2); MEAN CORPUSCULAR HGB CONC 30.1 g/dL (31-35); MEAN CORPUSCULAR VOLUME 92.8 fL (81-99); MONOCYTES # (AUTO) 0.7 (0.2-0.8); MONOCYTES % 9.3 % (4.4-11.3); NEUTROPHILS # (AUTO) 5.3 (2.1-6.9); NEUTROPHILS % 71.6 % (38.7-80.0); PLATELET COUNT 155 x10e3/uL (140-360); RED BLOOD COUNT 2.79 x10e6/uL (4.3-5.7); RED CELL DISTRIBUTION WIDTH 15.4 % (11.7-14.4)
[2019-10-07 05:29] LABS: ALANINE AMINOTRANSFERASE 38 IU/L (0-55); ALBUMIN 3.4 g/dL (3.5-5.0); ALBUMIN/GLOBULIN RATIO 1.5 (0.8-2.0); ALKALINE PHOSPHATASE 126 IU/L (40-150); BLOOD UREA NITROGEN 14 mg/dL (7-26); BUN/CREATININE RATIO 30 (6-25); CALCIUM 8.6 mg/dL (8.4-10.2); CARBON DIOXIDE 37 mmol/L (22-29); CHLORIDE 95 mmol/L (98-107); CREATININE, SERUM 0.46 mg/dL (0.72-1.25); EST GLOMERULAR FILTRATION RATE > 60 ML/MIN (60-); GLUCOSE 97 mg/dL (74-118); MAGNESIUM 1.9 MG/DL (1.3-2.1); PHOSPHORUS 1.5 MG/DL (2.3-4.7); SODIUM 142 mmol/L (136-145)
[2019-10-07] MEDS ORDERED: POTASSIUM CHLORIDE 20MEQ/100ML 100 ML IV ONE ×2 (06:30→17:00)
[2019-10-07] MEDS: FUROSEMIDE INJ 100 MG in SODIUM CHLORIDE 0.9% 100 ML 90 ML IV SCH ×2 (08:36→16:29)
[2019-10-07] MEDS: SUCRALFATE 1 GM/10 ML SUSP NG SCH ×4 (08:36→21:12)
[2019-10-07] MEDS: BALSAM PERU/CASTOR OIL 60 GM OINT...G. TP SCH (08:37)
[2019-10-07] MEDS: ENOXAPARIN INJ 80 MG/0.8 ML SYR SC SCH ×2 (08:37→21:13)
[2019-10-07] MEDS: FAMOTIDINE 20 MG/2 ML VIAL IV SCH ×2 (08:37→16:30)
[2019-10-07] MEDS: ACETAZOLAMIDE SODIUM 500 MG/VIAL IV SCH (08:37)
[2019-10-07] MEDS: CYANOCOBALAMIN INJ 1,000 MCG/ML VIAL IM SCH (08:37)
[2019-10-07] MEDS: DOCUSATE SODIUM LIQD 100 MG/10 ML UDC NG SCH (08:37)
[2019-10-07] MEDS: METOPROLOL TARTRATE 25 MG TAB PO SCH ×2 (08:37→21:13)
[2019-10-07] MEDS: METOPROLOL TARTRATE INJ 1 MG/ML VIAL IV PRN (08:38)
[2019-10-07] MEDS: ROCURONIUM BROMIDE 1,250 MG in SODIUM CHLORIDE 0.9% 250ML 125 ML IV PRN (08:38)
[2019-10-07] MEDS: FENTANYL 2000MCG/NS 250 250 ML IV PRN ×2 (08:42→21:32)
[2019-10-07] MEDS ORDERED: POTASSIUM CHLORIDE 20MEQ/100ML 200 ML IV ONE (09:30)
--- NOTE | 2019-10-07 09:52 | Progress Note ---
DATE: 10/07/2019 Renal Progress Note SUBJECTIVE: Followed for hypokalemia as well as fluid overload. Fluid overload has been improving. Potassium level is still on the low side, was 3.3 yesterday, has been replaced with both IV and oral potassium. Magnesium level is normal. Phosphorus is low at 1.5 today. Remains on the vent, has COVID pneumonia. OBJECTIVE: VITAL SIGNS: Vital signs are noted. They are as follows: Blood pressure 157/64. 32 respirations, 112 pulse. FiO2 is at 50%. LUNGS: Rales bilaterally in the lung quevedo. CARDIOVASCULAR: S1 and S2. No rub. ABDOMEN: Soft, nontender. EXTREMITIES: No evidence of edema. LABORATORY DATA: Chest x-ray, mild improvement in bilateral multifocal airspace opacities. IMPRESSION AND PLAN: 1. Hypokalemia. We will replace both with IV and potassium orally via G-tube. Magnesium is normal. 2. Hypophosphatemia. Replace with potassium phosphate IV. 3. Fluid overload. We will continue Lasix drip. The patient's overall volume status is improving. Chest x-ray is also improved. 4. Coronavirus disease 2019 pneumonia. Plan would be as per primary and Critical Care recommendations. MD ERIKA Bocanegra/MODL /[id number]
[2019-10-07] MEDS ORDERED: VECURONIUM BROMIDE FOR INJ 20 MG VIAL IV STA (10:00)
[2019-10-07 10:11] LABS: ABG HCO3 34 mmol/L (22-26); ABG PCO2 36 mmHg (35-45); ABG PH 7.59 (7.35-7.45); ABG PO2 75 mmHg (80-105); ABG TCO2 36
--- NOTE | 2019-10-07 10:38 | Progress Note ---
DATE: SUBJECTIVE: The patient is currently on Lasix drip at 10 mg an hour. His rocuronium was decreased and he was not synchronizing well with the ventilator. His rocuronium was increased back to 0.08. He is continued on Versed and fentanyl. He remains on a PRVC mode of ventilation at a rate of 28 with a PEEP of 8 and the pressure above PEEP of 28. His tidal volumes are about 370 mL with that. PHYSICAL EXAMINATION: VITAL SIGNS: The blood pressure is 157/64, saturation is 96% on the above settings. His heart rate is 110 to 120. HEENT: Shows no facial swelling or erythema. There is an oral endotracheal tube. LYMPHATIC: Shows no submandibular, cervical, or supraclavicular adenopathy. CARDIAC: Reveals a regular rate and rhythm with normal S1 and S2. LUNGS: Auscultation of lungs reveals crackles at the bases. There is no wheezing. ABDOMEN: Soft and nontender. There is no rebound or guarding. EXTREMITIES: Shows no leg edema or calf tenderness. There is no cyanosis or clubbing. SKIN: Shows no rashes. NEUROLOGICAL: Shows no focal abnormalities. LABORATORY DATA: BUN to creatinine ratio is normal. Potassium is 3. Other electrolytes are within normal limits. The white blood cell count is 7.3 and hemoglobin is 7.8. IMPRESSION: 1. Acute respiratory failure. 2. Viral pneumonia and COVID-19 infection. 3. Acute kidney injury. 4. Anasarca. 5. Hypokalemia. PLAN: 1. Continue Lasix drip with Diamox daily. 2. Continue pressure control ventilation and repeat ABG at 1300. 3[address] the patient back in the supine position. 4. Continue Versed, fentanyl, and rocuronium. 5. Continue enteral feedings. 6. Continue Lovenox. 7. Continue Protonix. Greater than 35 minutes in direct critical care time. Maximilian Lowry MD [facility]/MODL /[id number]
[2019-10-07] MEDS ORDERED: POTASSIUM PHOSPHATE 20 MM in SODIUM CHLORIDE 0.9% 250ML 250 ML IV ONE (13:30)
[2019-10-07 14:03] LABS: ABG HCO3 37 mmol/L (22-26); ABG PCO2 49 mmHg (35-45); ABG PH 7.49 (7.35-7.45); ABG PO2 157 mmHg (80-105); ABG TCO2 39
--- NOTE | 2019-10-07 14:08 | NUR ---
infectious disease Progress note patient seen and examined chart reviewed this is October 07, 2019 he patient is currently on Lasix drip at 10 mg an hour. His rocuronium was decreased and he was not synchronizing well with the ventilator. His rocuronium was increased back to 0.08. He is continued on Versed and fentanyl. He remains on a PRVC mode of ventilation at a rate of 28 with a PEEP of 8 and the pressure above PEEP of 28. His tidal volumes are about 370 mL with that. PHYSICAL EXAMINATION: VITAL SIGNS: The blood pressure is 157/64, saturation is 96% on the above settings. His heart rate is 110 to 120. HEENT: Shows no facial swelling or erythema. There is an oral endotracheal tube. LYMPHATIC: Shows no submandibular, cervical, or supraclavicular adenopathy. CARDIAC: Reveals a regular rate and rhythm with normal S1 and S2. LUNGS: Auscultation of lungs reveals crackles at the bases. There is no wheezing. ABDOMEN: Soft and nontender. There is no rebound or guarding. EXTREMITIES: Shows no leg edema or calf tenderness. There is no cyanosis or clubbing. SKIN: Shows no rashes. NEUROLOGICAL: Shows no focal abnormalities. LABORATORY DATA: BUN to creatinine ratio is normal. Potassium is 3. Other electrolytes are within normal limits. The white blood cell count is 7.3 and hemoglobin is 7.8. IMPRESSION: 1. Acute respiratory failure. 2. Viral pneumonia and COVID-19 infection. 3. Acute kidney injury. 4. Anasarca. 5. Hypokalemia. cont same
[2019-10-07] MEDS: MIDAZOLAM HCL 50 MG in SODIUM CHLORIDE 0.9% 100 ML 90 ML IV PRN ×2 (15:10→21:32)
[2019-10-07] MEDS: POTASSIUM CHLORIDE 20MEQ/15ML UDC NG SCH (15:10)
--- NOTE | 2019-10-07 18:20 | Progress Note ---
DATE: 10/07/2019 Cardiology Progress Note SUBJECTIVE: Remains intubated and sedated. OBJECTIVE: VITAL SIGNS: Temperature 99 degrees, heart rate 130 on telemetry in sinus tachycardia, respiratory rate 28, blood pressure 148/77, O2 saturation 96% on vent support. GENERAL: Intubated and sedated in prone position. NECK: Supple. CHEST: With rales and decreased breath sounds. CARDIOVASCULAR: Regular rate and rhythm. Normal S1 and S2. ABDOMEN: Soft. Bowel sounds are positive. EXTREMITIES: Trace edema. Normothermic. CARDIOVASCULAR MEDICATIONS: Reviewed. 1. KCl supplementation. 2. Furosemide drip. 3. Metoprolol tartrate 5 IV q.6 hours and 25 q.12 hours p.o. STUDIES: Reviewed. White blood cell 7.3, hemoglobin 7.8, platelets 155. Sodium 142, potassium 3, creatinine 0.46, glucose 131, albumin 3.4, total protein 5.7. ASSESSMENT AND PLAN: A 44-year-old man with COVID-19 infection, community-acquired pneumonia, hypertension, acute on chronic diastolic heart failure, morbid obesity, acute respiratory failure, prolonged ventilatory support, deconditioning. RECOMMENDATIONS: Continue current cardiovascular medications. Continues to demonstrate notable improvement in ventilatory requirement. At this point, continue current strategy of frequent repositioning and diuresis. Continue supportive care and current cardiovascular medications. MD OPAL Del Valle/ANGELA /[id number]
[2019-10-07 20:12] LABS: ABG PH 7.29 (7.35-7.45)
[2019-10-07 20:13] LABS: ABG HCO3 40 mmol/L (22-26); ABG PCO2 84 mmHg (35-45); ABG PO2 316 mmHg (80-105); ABG TCO2 43
--- NOTE | 2019-10-07 20:30 | Progress Note ---
DATE: 10/07/2019 SUBJECTIVE: Intubated, sedated, unable to give history. OBJECTIVE: VITAL SIGNS: Temperature 99.1, pulse 126, respiratory rate 28, blood pressure 138/72. GENERAL: Intubated, sedated. SKIN: No rash. HEENT: Endotracheal tube in place. LUNGS: Decreased breath sounds. HEART: Tachycardic. Normal S1, S2. GI: Abdomen soft, nondistended. NEUROLOGIC: Sedated. PSYCHIATRIC: Sedated. LABORATORY DATA: White count 7, hemoglobin 8, platelet count 155, creatinine 0.46. ASSESSMENT AND PLAN: 1. Acute respiratory failure due to coronavirus disease-19 pneumonia. Continue vent management per medicaid specialist and continue meropenem per Infectious Disease and also continue Lasix drip. 2. Chronic blood loss anemia, stable. 3. Gastrointestinal and deep venous thrombosis prophylaxis. Pepcid IV and Lovenox b.i.d. [place] MD ALIN Mcmillan/ANGELA /[id number]
--- NOTE | 2019-10-07 20:38 | NUR ---
Routine ABG's done on patient, Max Oconnor notified of levels. New Order to change settings RR 30 PC changed to 28.
[2019-10-08] VITALS (24 sets, daily range): BP systolic 84–191; BP diastolic 8–90
[2019-10-08] MEDS: POTASSIUM CHLORIDE 20MEQ/15ML UDC NG SCH ×3 (00:29→15:36)
[2019-10-08] MEDS: MIDAZOLAM HCL 50 MG in SODIUM CHLORIDE 0.9% 100 ML 90 ML IV PRN ×3 (00:30→23:11)
[2019-10-08] MEDS: EYE LUBRICANT OPTH OINT 3.5GM TUBE OP SCH ×4 (00:31→17:04)
[2019-10-08 03:53] LABS: BASOPHILS # (AUTO) 0.1 (0.0-0.1); BASOPHILS % 0.4 % (0.0-1.0); EOSINOPHILS % 7.9 % (0.0-6.0); HEMATOCRIT 29.7 % (38.2-49.6); HEMOGLOBIN 9.1 g/dL (14.0-18.0); LYMPHOCYTES # (AUTO) 0.9 (1.0-3.2); LYMPHOCYTES % 6.8 % (18.0-39.1); MEAN CORPUSCULAR HEMOGLOBIN 28.2 pg (28-32); MEAN CORPUSCULAR HGB CONC 30.6 g/dL (31-35); MONOCYTES # (AUTO) 1.1 (0.2-0.8); MONOCYTES % 8.4 % (4.4-11.3); NEUTROPHILS # (AUTO) 9.6 (2.1-6.9); NEUTROPHILS % 75.3 % (38.7-80.0); PLATELET COUNT 183 x10e3/uL (140-360); RED BLOOD COUNT 3.23 x10e6/uL (4.3-5.7); RED CELL DISTRIBUTION WIDTH 15.2 % (11.7-14.4)
[2019-10-08 04:13] LABS: ALANINE AMINOTRANSFERASE 55 IU/L (0-55); ALBUMIN 3.6 g/dL (3.5-5.0); ALBUMIN/GLOBULIN RATIO 1.3 (0.8-2.0); ALKALINE PHOSPHATASE 181 IU/L (40-150); ANION GAP 13.4 mmol/L (8-16); BLOOD UREA NITROGEN 13 mg/dL (7-26); BUN/CREATININE RATIO 28 (6-25); CALCIUM 9.2 mg/dL (8.4-10.2); CARBON DIOXIDE 35 mmol/L (22-29); CHLORIDE 93 mmol/L (98-107); CREATININE, SERUM 0.46 mg/dL (0.72-1.25); EST GLOMERULAR FILTRATION RATE > 60 ML/MIN (60-); GLUCOSE 104 mg/dL (74-118); POTASSIUM 3.4 mmol/L (3.5-5.1); SODIUM 138 mmol/L (136-145)
[2019-10-08 04:22] LABS: MAGNESIUM 2.1 MG/DL (1.3-2.1); PHOSPHORUS 1.8 MG/DL (2.3-4.7)
[2019-10-08] MEDS: MEROPENEM 1GM 100 ML IV SCH ×3 (05:47→17:04)
[2019-10-08] MEDS: FENTANYL 2000MCG/NS 250 250 ML IV PRN ×2 (05:48→10:33)
[2019-10-08] MEDS ORDERED: POTASSIUM CHLORIDE 20MEQ/100ML 100 ML IV ONE (06:00)
[2019-10-08] MEDS: FUROSEMIDE INJ 100 MG in SODIUM CHLORIDE 0.9% 100 ML 90 ML IV SCH ×3 (06:49→10:45)
[2019-10-08] MEDS: SUCRALFATE 1 GM/10 ML SUSP NG SCH ×3 (08:09→16:30)
[2019-10-08] MEDS: BALSAM PERU/CASTOR OIL 60 GM OINT...G. TP SCH (08:10)
[2019-10-08] MEDS: METOPROLOL TARTRATE 25 MG TAB PO SCH (08:10)
--- NOTE | 2019-10-08 08:32 | Progress Note ---
DATE: 10/08/2019 Renal Progress Note SUBJECTIVE: Followed for hypokalemia and fluid overload. The patient's potassium level is better at 3.4 today. The patient remains on the vent, has COVID pneumonia. The patient's urine output has been excellent. Overall, the patient's metabolic alkalosis has improved. Bicarb is down to 35. The patient remains on Lasix drip at 10 mg/hour with excellent urine output. Chest x-ray from 10/06/2019 did show improvement. OBJECTIVE: GENERAL: The patient remains on the ventilator. VITAL SIGNS: Blood pressure is in the 180s/80s, afebrile, 104 pulse. The patient is now on FiO2 about 45%. LUNGS: Rales bilaterally in the lung quevedo. CARDIOVASCULAR: S1 and S2. No rub. ABDOMEN: Soft. Positive bowel sounds. EXTREMITIES: No edema. LABORATORY DATA: Sodium 138, potassium 3.4, chloride 93, bicarb 35, BUN 15, creatinine 0.46. Phosphorus is low at 1.8, magnesium 2.1. IMPRESSION: 1. Hypokalemia. We will replace via G-tube as well as we will replace with potassium phosphate since the phosphorus is low also. 2. Hypophosphatemia. We will replace with K-Phos 30 millimoles IV. 3. Hypertension. Blood pressure stable to a slightly elevated, being addressed by critical care team. 4. COVID19 pneumonia, plan per critical take care team. 5. Fluid overload. Continue with Lasix drip for now. The patient's FiO2 is improving. Alex Roger MD /MODL /[id number]
--- NOTE | 2019-10-08 08:35 | NUR ---
HEMATOLOGY/ONCOLOGY PROGRESS NOTE: HPI: Patient remains intubated, weaning off as tolerated, in COVID ICU. Events noted. ROS: 14 point ROS unable to obtain secondary to patient intubated, sedated. PHYSICAL EXAM: Vitals: Reviewed as per EMR. PE not performed due to COVID-19 contact precautions. LABORATORY/RADIOLOGY DATA: Reviewed per EMR. ASSESSMENT AND PLAN: Mr. Miles is a 42-year-old male with past medical history of hypertension who was admitted on 08/24/2019 due to cough and fever. Patient was found to be positive for COVID-19. Intubated due to worsening respiratory status. Patient has been treated with full-dose Lovenox since 09/08/19. Has required PRBC previously during admission. Patient now with dropping platelet count and recurrent anemia requiring PRBC transfusion. Hematology/Oncology has been consulted to assist with the management. 1. Thrombocytopenia: Likely secondary to consumption for infection. DIC panel showed no coagulopathy, elevated fibrinogen, does not appear DIC. Acute hepatitis panel negative. Abdominal US without evidence of liver cirrhosis or splenomegaly. HIT panel negative. Continue full-dose anticoagulation with Lovenox 1mg/kg subcu every 12 hours. Anti-Xa level slightly subtherapeutic for lovenox in obese patient, defer to pharmacy for dose adjustment. Thrombocytopenia RESOLVED. Monitor. 2. Anemia: Anemia panel appears mixed picture AOCD + RODRIGUEZ with noted low B12 level. Macrocytosis probably combination of B12 deficiency and possibly also related to bone marrow suppression from viral infection. Ferritin mildly elevated, likely as acute phase reactant. Repeat ferritin significantly more elevated hold IV iron. Reticulocyte count and LDH mildly elevated, haptoglobin elevated, does not appear hemolysis. S/P 1 unit PRBC transfused on 10/03/19. Continue B12 IM daily per GI on board. Hemoglobin improving. Monitor closely. 3. COVID-19 PNA: In the ICU, pharmacologically sedated and intubated with weaning off vent as tolerated, on pressure control. On TPN. Undergoing intermittent proning. CXR with mild improvement in bibasilar opacities on 020, CXR pending this morning. Afebrile, Blood cultures final negative. On IV antibiotics. Pulmonary and infectious disease on board. 4. Melena/ileus/abd distention: On Pepcid IV. Improved. On TFs with nutrition on board. 5. Fluid overload/oligoanuria: On diuresis, UOP improved. Nephrology on board. 6. DVT proph: Full dose Lovenox as per #1/3. 7. GOC: Patient is full code. Family discussions ongoing. Above plan discussed with Dr. Lona Martinez. Thank you for the consult. I will be available. Please call with questions.
--- NOTE | 2019-10-08 08:36 | Diagnostic Imaging Report ---
EXAMINATION: CHEST SINGLE (PORTABLE) INDICATION: Respiratory failure COMPARISON: Chest radiograph 10/05/2019 FINDINGS: LINES/TUBES:Support lines and tubes unchanged. LUNGS:The lung volumes are low. Unchanged bilateral multifocal airspace opacities. PLEURA:No pleural effusion or pneumothorax. MEDIASTINUM:The cardiomediastinal silhouette appears unchanged in size and shape. BONES/SOFT TISSUES:No acute osseous injury. ABDOMEN:No free air under the diaphragm. IMPRESSION: No significant interval change. Signed by: Farrah Pierson MD on 10/08/2019 8:32 AM
[2019-10-08] MEDS ORDERED: POTASSIUM PHOSPHATE 30 MM in SODIUM CHLORIDE 0.9% 250ML 250 ML IV SCH (10:00)
[2019-10-08] MEDS: CYANOCOBALAMIN INJ 1,000 MCG/ML VIAL IM SCH (10:31)
[2019-10-08] MEDS: ENOXAPARIN INJ 80 MG/0.8 ML SYR SC SCH (10:32)
[2019-10-08] MEDS: FAMOTIDINE 20 MG/2 ML VIAL IV SCH ×2 (10:32→17:05)
--- NOTE | 2019-10-08 11:33 | Progress Note ---
DATE: Pulmonary Critical Care SUBJECTIVE: The patient is afebrile. He has been on Lasix drip overnight. He remained negative about 4 L. PHYSICAL EXAMINATION: VITAL SIGNS: The patient is afebrile. The blood pressure is 183/85 and the heart rate is 105 to 115. He is on a pressure control mode of ventilation set of rate of 26 with a PEEP of 8 and pressure above PEEP of 26. His FiO2 is set at 45%. HEENT: Shows no facial swelling or erythema. The oropharynx is normal. There is an oral endotracheal tube. LYMPHATIC: Shows no submandibular, cervical, or supraclavicular adenopathy. CARDIAC: Reveals regular rate and rhythm. Normal S1, S2. LUNGS: Auscultation of lungs reveals crackles at the bases. There is no wheezing. ABDOMEN: Soft, nontender. There is no rebound or guarding. EXTREMITIES: Shows no leg edema or calf tenderness. There is no cyanosis or clubbing. LABORATORY DATA: White blood cell count is 12.7, hemoglobin is 9.1. The platelet count is 183. The BUN to creatinine ratio is normal. Potassium is 3.4. Other electrolytes are within normal limits. RADIOGRAPHIC DATA: Shows persistent bilateral infiltrates. IMPRESSION: 1. Acute respiratory failure. 2. Viral pneumonia and COVID-19 infection. 3. Acute kidney injury. 4. Anasarca. 5. Hypokalemia. PLAN: 1. Decrease Lasix drip to 5 mg. 2. Continue Diamox. 3. Continue pressure control. Monitor ABG. 4. Continue Versed and fentanyl. Wean off rocuronium. 5. Re-evaluation for tracheostomy. 6. Continue enteral feedings. 7. Lovenox. Greater than 35 minutes in direct critical care time. Maximilian Lowry MD [facility]/MODL /[id number]
[2019-10-08 11:42] LABS: ABG HCO3 36 mmol/L (22-26); ABG PCO2 42 mmHg (35-45); ABG PH 7.54 (7.35-7.45); ABG PO2 66 mmHg (80-105); ABG TCO2 37
--- NOTE | 2019-10-08 17:40 | Progress Note ---
DATE: SUBJECTIVE: Mr. Miles remains in intensive care unit. He remains on the vent, afebrile, on Lasix drip. OBJECTIVE: HEENT: Normocephalic. NECK: Supple. CHEST: Crackles. HEART: S1 and S2. ABDOMEN: Soft. IMPRESSION: Acute respiratory failure, COVID-19, acute kidney injury, and fluid overload. The patient is being diuresed. Continue supportive care as ordered. Stable so far. From Infectious Disease point of view, continue to assess daily for aspiration pneumonia and sepsis. MD MAYURI Taylor/MODL /[id number]
--- NOTE | 2019-10-08 18:05 | Progress Note ---
DATE: 10/08/2019 Cardiology Progress Note SUBJECTIVE: Mr. Miles remains intubated and sedated. OBJECTIVE: VITAL SIGNS: Temperature 99.3, heart rate 126 and sinus tachycardia on telemetry, respiratory rate 28, blood pressure 151/70, and O2 saturation 97% on vent support. GENERAL: Intubated, sedated. NECK: Supple. CHEST: With rales. Decreased breath sounds. CARDIOVASCULAR: Regular rate and rhythm. Normal S1 and S2. Tachycardic. ABDOMEN: Soft. Bowel sounds positive. EXTREMITIES: 1+ edema. Normothermic extremities. CARDIOVASCULAR MEDICATIONS: Reviewed. Continues to be on furosemide drip, Lovenox 80 q.12 hours subcutaneous, and metoprolol tartrate 25 mg every 12 hours. STUDIES: Reviewed. White blood cells 12.6, hemoglobin 9.1, and platelets 183. Creatinine 0.4 and glucose 132. ASSESSMENT AND PLAN: A 44-year-old man with COVID-19 infection, community-acquired pneumonia, hypertension, [id number] diastolic heart failure, acute respiratory failure requiring prolonged ventilatory support and deconditioning. RECOMMEND: 1. Continued diuretics. Continue to wean vent support as tolerated. 2. Continue rest of cardiovascular medications. John Romero MD [facility]/MODL /[id number]
[2019-10-08] MEDS ORDERED: ALBUTEROL SULF 0.083% NEB SOLN 3 ML NEB ONE (20:17)
--- NOTE | 2019-10-08 22:52 | Progress Note ---
DATE: 10/08/2019 SUBJECTIVE: Intubated, sedated, cannot give any history. OBJECTIVE: VITAL SIGNS: Temperature 99.3, pulse 126, respiratory rate 28, and blood pressure 146/70. GENERAL: Intubated, sedated. SKIN: No rash. HEENT: Endotracheal tube in place. LUNGS: Decreased breath sounds. HEART: Tachycardic. Normal S1 and S2. ABDOMEN: Soft and nondistended. NEUROLOGIC: Sedated. PSYCHIATRIC: Sedated. LABORATORY DATA: Laboratory harrison, white count 13, hemoglobin 9, and platelet count 183. Creatinine 0.5. ASSESSMENT AND PLAN: 1. Acute respiratory failure due to COVID-19 pneumonia. Continue Lasix drip and vent management per financial services manager and continue meropenem per Infectious Disease specialist. 2. Chronic blood loss anemia, stable. 3. Gastrointestinal and deep venous thrombosis prophylaxis. Lovenox b.i.d. Yoletteching MD ALIN Mcmillan/ANGELA /[id number]
[2019-10-08 23:18] LABS: ABG HCO3 33 mmol/L (22-26); ABG PCO2 49 mmHg (35-45); ABG PH 7.44 (7.35-7.45); ABG PO2 85 mmHg (80-105); ABG TCO2 35
[2019-10-09] VITALS (21 sets, daily range): BP systolic 85–152; BP diastolic 42–87
[2019-10-09] MEDS: SUCRALFATE 1 GM/10 ML SUSP NG SCH ×5 (01:22→21:13)
[2019-10-09] MEDS: ENOXAPARIN INJ 80 MG/0.8 ML SYR SC SCH ×3 (01:23→21:13)
[2019-10-09] MEDS: POTASSIUM CHLORIDE 20MEQ/15ML UDC NG SCH ×4 (01:23→17:58)
[2019-10-09] MEDS: METOPROLOL TARTRATE 25 MG TAB PO SCH ×3 (01:23→21:00)
[2019-10-09] MEDS: EYE LUBRICANT OPTH OINT 3.5GM TUBE OP SCH ×4 (01:23→18:04)
[2019-10-09] MEDS: MEROPENEM 1GM 100 ML IV SCH ×3 (01:24→18:04)
[2019-10-09] MEDS: ACETAZOLAMIDE SODIUM 500 MG/VIAL IV SCH ×3 (02:35→20:51)
[2019-10-09 04:17] LABS: BASOPHILS # (AUTO) 0.1 (0.0-0.1); BASOPHILS % 0.4 % (0.0-1.0); EOSINOPHILS # (AUTO) 1.1 (0.0-0.4); EOSINOPHILS % 5.4 % (0.0-6.0); HEMATOCRIT 28.8 % (38.2-49.6); HEMOGLOBIN 8.8 g/dL (14.0-18.0); LYMPHOCYTES # (AUTO) 0.8 (1.0-3.2); LYMPHOCYTES % 3.8 % (18.0-39.1); MEAN CORPUSCULAR HEMOGLOBIN 28.2 pg (28-32); MEAN CORPUSCULAR HGB CONC 30.6 g/dL (31-35); MEAN CORPUSCULAR VOLUME 92.3 fL (81-99); MONOCYTES # (AUTO) 1.2 (0.2-0.8); MONOCYTES % 6.1 % (4.4-11.3); NEUTROPHILS # (AUTO) 16.7 (2.1-6.9); NEUTROPHILS % 83.5 % (38.7-80.0); PLATELET COUNT 216 x10e3/uL (140-360); RED BLOOD COUNT 3.12 x10e6/uL (4.3-5.7); RED CELL DISTRIBUTION WIDTH 15.2 % (11.7-14.4)
--- NOTE | 2019-10-09 04:30 | Diagnostic Imaging Report ---
EXAMINATION: CHEST SINGLE (PORTABLE) INDICATION: ^VIRAL PNA ^[id number] ^[id number] COMPARISON: 10/08/2019 FINDINGS: AP view TUBES and LINES: Stable endotracheal tube, nasogastric tube, and left PICC. LUNGS: Low lung volumes. Diffuse bilateral airspace opacities. PLEURA: No significant pleural effusion or pneumothorax. HEART AND MEDIASTINUM: The cardiomediastinal silhouette is obscured. BONES AND SOFT TISSUES: No acute osseous lesion. Soft tissues are unremarkable. UPPER ABDOMEN: No free air under the diaphragm. IMPRESSION: Diffuse bilateral airspace opacities, concerning for multifocal pneumonia, unchanged or slightly improved from prior exam. Signed by: Dr. Eldon Sanchez MD on 10/09/2019 4:27 AM
[2019-10-09] MEDS: FENTANYL 2000MCG/NS 250 250 ML IV PRN ×3 (04:36→21:00)
[2019-10-09] MEDS: MIDAZOLAM HCL 50 MG in SODIUM CHLORIDE 0.9% 100 ML 90 ML IV PRN ×3 (04:37→21:00)
[2019-10-09 04:43] LABS: ALANINE AMINOTRANSFERASE 55 IU/L (0-55); ALBUMIN/GLOBULIN RATIO 1.2 (0.8-2.0); ALKALINE PHOSPHATASE 225 IU/L (40-150); ANION GAP 10.8 mmol/L (8-16); BLOOD UREA NITROGEN 16 mg/dL (7-26); BUN/CREATININE RATIO 34 (6-25); CALCIUM 8.4 mg/dL (8.4-10.2); CARBON DIOXIDE 32 mmol/L (22-29); CHLORIDE 99 mmol/L (98-107); CREATININE, SERUM 0.47 mg/dL (0.72-1.25); EST GLOMERULAR FILTRATION RATE > 60 ML/MIN (60-); GLUCOSE 109 mg/dL (74-118); PHOSPHORUS 2.5 MG/DL (2.3-4.7); POTASSIUM 3.8 mmol/L (3.5-5.1); SODIUM 138 mmol/L (136-145)
[2019-10-09] MEDS ORDERED: POTASSIUM CHLORIDE 20MEQ/100ML 100 ML IV ONE (06:30)
[2019-10-09] MEDS: FUROSEMIDE INJ 100 MG in SODIUM CHLORIDE 0.9% 100 ML 90 ML IV SCH (07:29)
[2019-10-09] MEDS ORDERED: HEPARIN SOD/SOD CHLORIDE 1,000 ML IV SCH (08:00)
[2019-10-09] MEDS: CYANOCOBALAMIN INJ 1,000 MCG/ML VIAL IM SCH (08:08)
[2019-10-09] MEDS: FAMOTIDINE 20 MG/2 ML VIAL IV SCH ×2 (08:09→18:04)
[2019-10-09] MEDS: BALSAM PERU/CASTOR OIL 60 GM OINT...G. TP SCH (08:09)
--- NOTE | 2019-10-09 08:09 | NUR ---
HEMATOLOGY/ONCOLOGY PROGRESS NOTE: HPI: Patient remains intubated, weaning off as tolerated, in COVID ICU. Re-eval for trach possibly. Events noted. Temp 101.8. ROS: 14 point ROS unable to obtain secondary to patient intubated, sedated. PHYSICAL EXAM: Vitals: Reviewed as per EMR. Temp: 101.8 degF PE not performed due to COVID-19 contact precautions. LABORATORY/RADIOLOGY DATA: Reviewed per EMR. ASSESSMENT AND PLAN: Mr. Miles is a 42-year-old male with past medical history of hypertension who was admitted on 08/24/2019 due to cough and fever. Patient was found to be positive for COVID-19. Intubated due to worsening respiratory status. Patient has been treated with full-dose Lovenox since 09/08/19. Has required PRBC previously during admission. Patient now with dropping platelet count and recurrent anemia requiring PRBC transfusion. Hematology/Oncology has been consulted to assist with the management. 1. Thrombocytopenia: Likely secondary to consumption for infection. DIC panel showed no coagulopathy, elevated fibrinogen, does not appear DIC. Acute hepatitis panel negative. Abdominal US without evidence of liver cirrhosis or splenomegaly. HIT panel negative. Continue full-dose anticoagulation with Lovenox 1mg/kg subcu every 12 hours. Anti-Xa level slightly subtherapeutic for lovenox in obese patient, defer to pharmacy for dose adjustment. Thrombocytopeni a RESOLVED. Monitor. 2. Anemia: Anemia panel appears mixed picture AOCD + RODRIGUEZ with noted low B12 level. Macrocytosis probably combination of B12 deficiency and possibly also related to bone marrow suppression from viral infection. Ferritin mildly elevated, likely as acute phase reactant. Repeat ferritin significantly more la vated hold IV iron. Reticulocyte count and LDH mildly elevated, haptoglobin elevated, does not appear hemolysis. S/P 1 unit PRBC transfused on 10/03/19. Continue B12 IM daily per GI on board. Hemoglobin stable. Monitor closely. 3. COVID-19 PNA: In the ICU, pharmacologically sedated and intubated with weaning off vent as tolerated, on pressure control. On TPN. Undergoing intermittent proning. CXR with mild improvement in bibasilar opacities on 020. Temp 101.8. Blood cultures final negative. On IV antibiotics. Pulmonary and infectious disease on board. 4. Melena/ileus/abd distention: On Pepcid IV. Improved. On TFs with nutrition on board. 5. Fluid overload/oligoanuria: On diuresis, UOP improved per Nephrology on board. 6. DVT proph: Full dose Lovenox as per #1/3. 7. GOC: Patient being re-evaluated for possible trach placement. Above plan discussed with Dr. Lona Martinez. Thank you for the consult. I will be available. Please call with questions.
--- NOTE | 2019-10-09 09:09 | Progress Note ---
DATE: 10/09/2019 Renal Progress Note SUBJECTIVE: Followed for hypokalemia, potassium is corrected now at 3.8. The patient's CO2 level is also better at 32. Kidney function remains normal. The patient is nonoliguric, on Lasix drip, responding to it. FiO2 remains around 45% to 55%. O2 sats are in the low 90s. Remains on the vent, has COVID pneumonia. OBJECTIVE: VITAL SIGNS: Noted. Blood pressure 108/44, pulse, the patient is tachycardic, 101.8 temperature. LUNGS: Rhonchi bilaterally. CARDIOVASCULAR: S1, S2. Tachycardia. ABDOMEN: Soft. Positive bowel sounds. EXTREMITIES: 1+ edema. LABORATORY WORKUP: Potassium is 3.8, sodium 138, BUN is 16 and creatinine 0.47, magnesium 2, phosphorus 2.5. IMPRESSION AND PLAN: 1. Hypokalemia has been replaced through IV as well as through the G tube. The potassium is now corrected at 3.8. The patient also remains on Lasix drip, it has been decreased now to 5 mg/hour. We will continue to monitor closely. 2. Hypertension. Blood pressure stable. 3. Fluid overload. Continue Lasix drip and titrated down to 5 mg/hour, given the metabolic alkalosis. 4. Hypertension. Blood pressure is currently stable. Continue to monitor. Thank you once again. Alex Roger MD /MODL /[id number]
--- NOTE | 2019-10-09 09:49 | Progress Note ---
DATE: SUBJECTIVE: The patient is still on the supine position. He is negative 2 L yesterday on Lasix and Diamox. He has new temperature to 101.8 overnight. He is still on a pressure control. He is on the rate of 30 with the PEEP of 8 and the pressure above PEEP of 28. His tidal volumes are 370 to 380 and his FiO2 is set at 55%. His saturations are in the low 90s. PHYSICAL EXAMINATION: VITAL SIGNS: The patient is still tachycardic at 120-130. He has a blood pressure of 108/45. HEENT: Shows no facial swelling or erythema. The patient has an oral endotracheal tube. He has a PICC line in place. He also has a radial arterial line. CARDIAC: Reveals regular rate and rhythm. Normal S1, S2. LUNGS: Auscultation of lungs reveals crackles at the bases. There is no wheezing. ABDOMEN: Soft, nontender. There is no rebound or guarding. EXTREMITIES: Shows no leg edema or calf tenderness. There is no cyanosis or clubbing. SKIN: Shows no rashes. LABORATORY DATA: The BUN to creatinine ratio is 16 to 0.47 and the other electrolytes are within normal limits. The albumin is 3. White blood cell count is 20.07 and hemoglobin is 8.8. The platelet count is 216. RADIOGRAPHIC DATA: Chest x-ray shows diffuse bilateral infiltrates. IMPRESSION: 1. Acute respiratory failure. 2. Viral pneumonia and coronavirus disease-2019 infection. 3. New onset fevers and leukocytosis. 4. Anasarca. 5. Hypokalemia. PLAN: 1. Obtain a sputum for fungal stain and culture. Change PICC line and continue current antibiotics. 2. Continue Lasix and Diamox. 3. Continue current ventilator settings and monitor ABG. 4. Continue to replace potassium. 5. Decrease rocuronium as tolerated. 6. Continue fentanyl and Versed. 7. Case discussed with Respiratory, nursing, Internal Medicine, Infectious Disease and Cardiology. Greater than 35 minutes in direct critical care time. Maximilian Lowry MD [facility]/REYESL /[id number]
[2019-10-09 10:22] LABS: ABG HCO3 35 mmol/L (22-26); ABG PCO2 73 mmHg (35-45); ABG PH 7.28 (7.35-7.45); ABG PO2 72 mmHg (80-105); ABG TCO2 37
--- NOTE | 2019-10-09 11:54 | Progress Note ---
DATE: 10/09/2019 Cardiology Progress Note SUBJECTIVE: Intubated and sedated. OBJECTIVE: VITAL SIGNS: Temperature 101.8, heart rate 132, sinus tachycardia on telemetry, blood pressure 108/44, respiratory rate 26, and O2 saturation 98% on vent support. GENERAL: Intubated and sedated. HEENT: With trace facial edema. NECK: Supple. CHEST: With rales and decreased breath sounds. CARDIOVASCULAR: Regular rate and rhythm. Normal S1 and S2. ABDOMEN: Soft. Bowel sounds positive. EXTREMITIES: Trace edema. CARDIOVASCULAR MEDICATIONS: Reviewed. Lovenox 80 mg q.12 hours, furosemide 5 mg/hour IV drip, metoprolol tartrate 5 q.6 hours IV and 25 q.12 hours p.o., and Lovenox 80 mg q.12 hours. STUDIES: Reviewed. Sodium 138, creatinine 0.4, and glucose 109. White blood cells 20, hemoglobin 8.8, and platelets 216. INR 1.07. AST 36, ALT 55, and alkaline phosphatase 225. ASSESSMENT AND PLAN: A 44-year-old man presents with COVID-19 infection, community-acquired pneumonia, anemia, and hypertension. RECOMMEND: Continue current cardiovascular medications. [id number] diastolic heart failure, volume status is improving on diuretics. Continue weaning vent support as tolerated. John Romero MD [facility]/REYESL /[id number]
--- NOTE | 2019-10-09 12:37 | NUR ---
this is infectious disease progress note patient seen and examined Patient remains intensive care unit this day #46. he patient is still on the supine position. He is negative 2 L yesterday on Lasix and Diamox. He has new temperature to 101.8 overnight. this is October 09, 2019. He is still on a pressure control. He is on the rate of 30 with the PEEP of 8 and the pressure above PEEP of 28. His tidal volumes are 370 to 380 and his FiO2 is set at 55%. His saturations are in the low 90s. PHYSICAL EXAMINATION: VITAL SIGNS: The patient is still tachycardic at 120-130. He has a blood pressure of 108/45. HEENT: Shows no facial swelling or erythema. The patient has an oral endotracheal tube. He has a PICC line in place. He also has a radial arterial line. CARDIAC: Reveals regular rate and rhythm. Normal S1, S2. LUNGS: Auscultation of lungs reveals crackles at the bases. There is no wheezing. ABDOMEN: Soft, nontender. There is no rebound or guarding. EXTREMITIES: Shows no leg edema or calf tenderness. There is no cyanosis or clubbing. SKIN: Shows no rashes. LABORATORY DATA: The BUN to creatinine ratio is 16 to 0.47 and the other electrolytes are within normal limits. The albumin is 3. White blood cell count is 20.07 and hemoglobin is 8.8. The platelet count is 216. RADIOGRAPHIC DATA: Chest x-ray shows diffuse bilateral infiltrates. IMPRESSION: 1. Acute respiratory failure. 2. Viral pneumonia and coronavirus disease-2019 infection. 3. New onset fevers and leukocytosis. 4. Anasarca. 5. Hypokalemia. see orders
--- NOTE | 2019-10-09 16:23 | Diagnostic Imaging Report ---
EXAMINATION: CHEST XRAY LINE PLACEMENT INDICATION: Line placement COMPARISON: Chest radiograph 10/09/2019 FINDINGS: LINES/TUBES:Interval placement of right PICC line with tip near the superior cavoatrial junction. Remaining support lines and tubes unchanged. LUNGS:Unchanged lung volumes and bilateral multifocal airspace opacities. PLEURA:No pleural effusion or pneumothorax. MEDIASTINUM:The cardiomediastinal silhouette appears unchanged in size and shape. BONES/SOFT TISSUES:No acute osseous injury. ABDOMEN:No free air under the diaphragm. IMPRESSION: Interval placement of right PICC line with tip at the superior cavoatrial junction. Otherwise, no significant interval change. Signed by: Farrah Pierson MD on 10/09/2019 4:19 PM
[2019-10-09] MEDS: ACETAMINOPHEN 325 MG TAB NG PRN (17:59)
--- NOTE | 2019-10-09 18:03 | NUR ---
assumed nursing care of patient at 1700 today from Edison Leyva RN
[2019-10-09 19:01] LABS: ABG PCO2 50 mmHg (35-45); ABG PH 7.42 (7.35-7.45)
[2019-10-09 19:02] LABS: ABG HCO3 33 mmol/L (22-26); ABG PO2 61 mmHg (80-105); ABG TCO2 34
--- NOTE | 2019-10-09 19:10 | NUR ---
gave nursing update to hs shift rn
--- NOTE | 2019-10-09 19:10 | NUR ---
ct pending, blood cultures and lab drawn
[2019-10-09 19:37] LABS: AMYLASE 67 U/L (25-125); LIPASE 60 U/L (8-78)
--- NOTE | 2019-10-09 19:57 | NUR ---
Spoke to Dr. Max Lowry regarding pt updates. Reported recent CXR, report is okay for lines and tubes. He is requesting to hold off on CT until tomorrow, give a one time dose of IV Tylenol, hold Lasix gtt for tonight and resume in AM, wait to replace sotelo catheter until day shift when urology will be here incase unable to reinsert. Will continue to closely monitor pt status. Addendum: 10/09/19 at 2110 by Jazmyn Bush RN Called Dr. Lowry regarding sudden hypotension. BP 66/37. New orders for 50 gm albumin & 500 cc bolus LR. Hold Lasix gtt until further notice. PRN for Levophed if needed. Orders placed.
[2019-10-09] MEDS ORDERED: ACETAMINOPHEN 1000 MG/100 ML IV ONE (20:05)
[2019-10-09] MEDS: ROCURONIUM BROMIDE 1,250 MG in SODIUM CHLORIDE 0.9% 250ML 125 ML IV PRN (21:00)
[2019-10-09] MEDS ORDERED: NOREPINEPHRINE 8 MG/D5W 250 ML 250 ML IV PRN (21:15)
[2019-10-09] MEDS ORDERED: ALBUMIN 25% 25GM 100ML 0.25 GM/ML BTL IV ONE (21:15)
[2019-10-09] MEDS ORDERED: ALBUMIN 25% 12.5GM 50ML 200 ML IV ONE (21:17)
[2019-10-09] MEDS ORDERED: LACTATED RINGER'S 1,000 ML ONE (21:18)
[2019-10-09] MEDS ORDERED: ALBUMIN 25% 25GM 100ML 200 ML IV ONE (21:45)
[2019-10-09] MEDS ORDERED: LACTATED RINGER'S 500 ML INJ ONE (21:45)
--- NOTE | 2019-10-09 22:21 | Progress Note ---
DATE: 10/09/2019 SUBJECTIVE: Intubated, sedated, cannot give history. OBJECTIVE: VITAL SIGNS: Temperature 101.1, pulse 125, respiratory rate 32, blood pressure 110/55. GENERAL: Sedated, intubated. SKIN: No rash. HEENT: Endotracheal tube in place. LUNGS: Decreased breath sounds. HEART: Tachycardic. Normal S1, S2. GI: Abdomen is soft, nondistended. NEUROLOGIC: Sedated. PSYCHIATRIC: Sedated. LABORATORY DATA: White count 20, hemoglobin 9, platelet count 216. Creatinine is 0.5. ASSESSMENT AND PLAN: 1. Acute respiratory failure due to coronavirus disease-2019 pneumonia. We will continue Lasix drip and vent management per Pulmonology. We will continue meropenem per Infectious Disease specialist. We will monitor his fever. Discussed with Dr. Maguire. 2. Chronic blood loss anemia, stable. 3. Gastrointestinal and deep vein thrombosis prophylaxes. Lovenox twice a day. MD ALIN Allred/ANGELA /[id number]
[2019-10-10] VITALS (19 sets, daily range): BP systolic 101–159; BP diastolic 42–78
[2019-10-10] MEDS: EYE LUBRICANT OPTH OINT 3.5GM TUBE OP SCH ×4 (00:03→18:20)
[2019-10-10] MEDS: MEROPENEM 1GM 100 ML IV SCH ×3 (02:23→18:19)
--- NOTE | 2019-10-10 02:36 | NUR ---
Left PICC line removed. No resistance noted when removing PICC. Catheter tip intact. No purulent drainage noted at insertion site.
[2019-10-10] MEDS: MIDAZOLAM HCL 50 MG in SODIUM CHLORIDE 0.9% 100 ML 90 ML IV PRN ×4 (02:57→18:13)
[2019-10-10] MEDS: FUROSEMIDE INJ 100 MG in SODIUM CHLORIDE 0.9% 100 ML 90 ML IV SCH (03:00)
--- NOTE | 2019-10-10 05:02 | NUR ---
BELEM PICC removed and cleansed with alcohol, sterile gauzed applied and dressed with tegaderm. No bleeding or s/s of complications noted. R ART line dressing changed with sterile technique and dressed with CHG dressing.
[2019-10-10 06:07] LABS: BASOPHILS % 0.3 % (0.0-1.0); EOSINOPHILS # (AUTO) 0.8 (0.0-0.4); HEMATOCRIT 26.1 % (38.2-49.6); HEMOGLOBIN 7.7 g/dL (14.0-18.0); LYMPHOCYTES # (AUTO) 0.6 (1.0-3.2); LYMPHOCYTES % 5.3 % (18.0-39.1); MEAN CORPUSCULAR HEMOGLOBIN 27.7 pg (28-32); MEAN CORPUSCULAR HGB CONC 29.5 g/dL (31-35); MEAN CORPUSCULAR VOLUME 93.9 fL (81-99); MONOCYTES # (AUTO) 0.8 (0.2-0.8); MONOCYTES % 7.4 % (4.4-11.3); NEUTROPHILS # (AUTO) 8.8 (2.1-6.9); NEUTROPHILS % 79.4 % (38.7-80.0); PLATELET COUNT 113 x10e3/uL (140-360); RED BLOOD COUNT 2.78 x10e6/uL (4.3-5.7); RED CELL DISTRIBUTION WIDTH 15.2 % (11.7-14.4)
[2019-10-10] MEDS: FENTANYL 2000MCG/NS 250 250 ML IV PRN ×3 (06:11→20:41)
[2019-10-10 06:27] LABS: ALANINE AMINOTRANSFERASE 36 IU/L (0-55); ALBUMIN 3.2 g/dL (3.5-5.0); ALBUMIN/GLOBULIN RATIO 1.2 (0.8-2.0); ALKALINE PHOSPHATASE 150 IU/L (40-150); ANION GAP 11.4 mmol/L (8-16); BLOOD UREA NITROGEN 15 mg/dL (7-26); BUN/CREATININE RATIO 34 (6-25); CARBON DIOXIDE 32 mmol/L (22-29); CHLORIDE 100 mmol/L (98-107); CREATININE, SERUM 0.44 mg/dL (0.72-1.25); EST GLOMERULAR FILTRATION RATE > 60 ML/MIN (60-); GLUCOSE 103 mg/dL (74-118); MAGNESIUM 2.1 MG/DL (1.3-2.1); PHOSPHORUS 2.4 MG/DL (2.3-4.7); POTASSIUM 3.4 mmol/L (3.5-5.1); SODIUM 140 mmol/L (136-145)
--- NOTE | 2019-10-10 08:31 | Diagnostic Imaging Report ---
EXAM: CHEST SINGLE (PORTABLE) DATE: 10/10/2019 4:30 AM INDICATION: Respiratory failure COMPARISON: 10/09/2019 FINDINGS: Endotracheal tube and right-sided PICC line identified in stable position. Enteric tube noted coursing below the diaphragm. Again identified are patchy airspace opacities throughout the lungs bilaterally, unchanged from the prior examination. There is no for pneumothorax or significant volume pleural effusion. The cardiomediastinal silhouette is stable in appearance. No acute osseous abnormality is identified IMPRESSION: No significant interval change from 10/09/2019. Stable appearing patchy airspace opacities again identified throughout the lungs bilaterally. Signed by: Dr. Jerad Child MD on 10/10/2019 8:28 AM
[2019-10-10] MEDS ORDERED: ENOXAPARIN SOD INJ 40 MG/0.4 ML SYR SC SCH (09:00)
[2019-10-10] MEDS: METOPROLOL TARTRATE 25 MG TAB PO SCH ×2 (09:00→20:33)
--- NOTE | 2019-10-10 09:03 | Progress Note ---
DATE: 10/10/2019 Renal Progress Note SUBJECTIVE: The patient is followed for hypokalemia and metabolic alkalosis. Fluid overload. The patient also has COVID pneumonia. Remains on the vent. The patient's potassium is slightly low today at 3.4. The patient's FiO2 is 60% on the ventilator. Remains on Lasix drip, however, decreased rate, metabolic alkalosis improved. OBJECTIVE: VITAL SIGNS: Blood pressure 137/50, pulse 120s, 30 respirations, FiO2 60%, and saturating about 96%. LUNGS: Rhonchi bilaterally. CARDIOVASCULAR: S1 and S2. Tachycardic. ABDOMEN: Soft. Positive bowel sounds. EXTREMITIES: 1+ edema. LABORATORY DATA: Potassium 3.4, magnesium is 2.1, phosphorus 2.4, calcium 9, BUN is 15, and creatinine 0.44. IMPRESSION AND PLAN: 1. Hypokalemia. Continue with replacement as per ICU protocol and also replacement by the G-tube. We will increase the potassium back to 20 mEq 3 times a day. Also recommend to replace IV potassium as per ICU protocol. 2. Hypertension appears stable. 3. Metabolic alkalosis is improving after Lasix drip was decreased. We will continue to monitor closely. 4. Fluid overload. Continue with low-dose Lasix drip for now. Can adjust based on chest x-ray findings and improvement in oxygenation based on the patient's blood gas as well as FiO2 requirements. Alex Roger MD /MODL /[id number]
--- NOTE | 2019-10-10 09:13 | Progress Note ---
DATE: Pulmonary Critical Care Progress Note SUBJECTIVE: The patient is currently in the supine position. He had some tachycardia and hypotension last night after his rocuronium was decreased. He was breathing over the vent in the 30s. He also had some fevers. He received IV Tylenol as well as a fluid bolus. His Lasix was held and his rocuronium was increased back to 0.01. He improved after these measures. He is now on PRVC with pressure control at a rate of 28. His pressure above PEEP is 28 and his rate is 30. His FiO2 is 60% and his PEEP is 8. His saturation is 96%. OBJECTIVE: VITAL SIGNS: His blood pressure is 137/50 and his heart rate is 120 to 130. He is on rocuronium at 0.01 as well as Versed at 10 mg and fentanyl at 300 mcg. HEENT: Shows no facial swelling or erythema. There is an oral endotracheal tube. There is a new PICC line in place on the right side. It was changed yesterday. He has an arterial line. CARDIAC: Reveals regular rate and rhythm with normal S1 and S2. LUNGS: Auscultation of lungs reveals rhonchorous breath sounds bilaterally. There is no wheezing. ABDOMEN: Soft and nontender. There is no rebound or guarding. EXTREMITIES: Shows no leg edema or calf tenderness. There is no cyanosis or clubbing. SKIN: Shows no rashes. NEUROLOGICAL: Shows the patient to be sedated. LABORATORY DATA: Platelet count is decreased to 113 and the hemoglobin is 7.7. The white cell count is 11.1. BUN to creatinine ratio is 15 to 0.44 and the potassium is 3.4. CO2 is 32 and the chloride is 100. Sodium is 140. RADIOGRAPHIC DATA: Chest x-ray shows stable appearing bilateral opacities in both lung [place]. IMPRESSION: 1. Acute respiratory failure. 2. Viral pneumonia and COVID-19 infection. 3. Anasarca. 4. Thrombocytopenia. 5. Hypokalemia. 6. Anemia. 7. Fevers. PLAN: 1. Continue Merrem. Await C. difficile toxin, fungal culture, urinalysis, and blood cultures. 2. Hold Lasix for now. 3. Place the patient in prone position. 4. Continue to give rocuronium as well as Versed and fentanyl. 5. Decrease Lovenox to 40 mg subcutaneous twice daily. 6. Continue to monitor platelet count and blood counts. 7. Possible tracheostomy. 8. Case discussed with substitute teacher nursing, day shift nursing, Respiratory, Infectious Disease, Internal Medicine, and Cardiology. Greater than 35 minutes in direct critical care time. MD SAMINA Angel/ANGELA /[id number]
--- NOTE | 2019-10-10 10:30 | NUR ---
Patient turned prone
[2019-10-10] MEDS: SUCRALFATE 1 GM/10 ML SUSP NG SCH ×4 (10:45→20:33)
[2019-10-10] MEDS: ACETAZOLAMIDE SODIUM 500 MG/VIAL IV SCH (10:45)
[2019-10-10] MEDS: FAMOTIDINE 20 MG/2 ML VIAL IV SCH ×2 (10:45→18:20)
[2019-10-10] MEDS: CYANOCOBALAMIN INJ 1,000 MCG/ML VIAL IM SCH (10:45)
[2019-10-10] MEDS: BALSAM PERU/CASTOR OIL 60 GM OINT...G. TP SCH (10:46)
[2019-10-10] MEDS: POTASSIUM CHLORIDE 20MEQ/15ML UDC NG SCH ×3 (10:46→20:33)
[2019-10-10 11:04] LABS: BAND NEUTROPHILS % (MANUAL) 3 %; EOSINOPHILS % (MANUAL) 6 % (0-7); LYMPHOCYTES % (MANUAL) 4 % (19-48); MONOCYTES % (MANUAL) 5 % (3.4-9.0); NEUTROPHILS % (MANUAL) 82 % (40-74)
--- NOTE | 2019-10-10 13:47 | NUR ---
He had some tachycardia and hypotension last night after his rocuronium was decreased. He was breathing over the vent in the 30s. He also had some fevers. He received IV Tylenol as well as a fluid bolus. His Lasix was held and his rocuronium was increased back to 0.01. He improved after these measures. He is now on PRVC with pressure control at a rate of 28. His pressure above PEEP is 28 and his rate is 30. His FiO2 is 60% and his PEEP is 8. His saturation is 96%. OBJECTIVE: VITAL SIGNS: His blood pressure is 137/50 and his heart rate is 120 to 130. He is on rocuronium at 0.01 as well as Versed at 10 mg and fentanyl at 300 mcg. HEENT: Shows no facial swelling or erythema. There is an oral endotracheal tube. There is a new PICC line in place on the right side. It was changed yesterday. He has an arterial line. CARDIAC: Reveals regular rate and rhythm with normal S1 and S2. LUNGS: Auscultation of lungs reveals rhonchorous breath sounds bilaterally. There is no wheezing. ABDOMEN: Soft and nontender. There is no rebound or guarding. EXTREMITIES: Shows no leg edema or calf tenderness. There is no cyanosis or clubbing. SKIN: Shows no rashes. NEUROLOGICAL: Shows the patient to be sedated. LABORATORY DATA: Platelet count is decreased to 113 and the hemoglobin is 7.7. The white cell count is 11.1. BUN to creatinine ratio is 15 to 0.44 and the potassium
[2019-10-10 14:36] LABS: ABG PCO2 63 mmHg (35-45); ABG PH 7.33 (7.35-7.45); ABG PO2 74 mmHg (80-105)
--- NOTE | 2019-10-10 14:36 | Progress Note ---
DATE: SUBJECTIVE: Mr. Miles is here, day #47. Prognosis is extremely guarded and poor at the present time. He is in supine position. He has tachycardia, hypertension last night. He is on multiple pressors. PHYSICAL EXAMINATION: VITAL SIGNS: His vitals are stable. HEENT: Normocephalic. CHEST: Rhonchi. COR: S1, S2. ABDOMEN: Soft. T-max 101, white count 11 down from 20. Sodium 140, potassium . Blood cultures are still pending. still pending. IMPRESSION: Sepsis, pneumonia, aspiration. Continue meropenem for now. White count came down. We will follow him clinically. Prognosis remains extremely guarded. MD MAYURI Taylor/MODL /[id number]
[2019-10-10 14:37] LABS: ABG HCO3 33 mmol/L (22-26); ABG TCO2 35
[2019-10-10 14:39] LABS: ABG HCO3 33 mmol/L (22-26); ABG PCO2 70 mmHg (35-45); ABG PH 7.29 (7.35-7.45); ABG PO2 71 mmHg (80-105); ABG TCO2 35
--- NOTE | 2019-10-10 16:37 | NUR ---
Nutrition Intervention Note RD Recommendation(s) for Physician: - Continue Vital AF 1.2. Recommend increasing goal rate to 60 ml/hr (provides 1728 kcal and 108 gm protein -Water flushes per MD. Plan of Care: RD following, TF rec's, monitor adequacy and tolerance Nutrition reason for involvement: follow up RD Assessment 10/09: Follow up. Chart reviewed. MD note indicates pt is in the supine position. Per documentation, pt is receiving TF at 30mL/hr not meeting kcal or protein needs. Current recommendations remain appropriate recommend increasing rate to 60 mL/hr. Will continue to monitor. 10/05: Follow up. Chart reviewed. Pt remains intubated and was in the supine position overnight. Pt is no receiving propofol at this time. Pts tube feed is at 20 mL/hr per chart not meeting kcal or protein needs. Tube feed recommendations provided. Will continue to monitor. 10/01: Follow up. Pt remains intubated, sedated on Propofol, and paralyzed. Pt requiring to be proned. TF rate decreased to 20 ml/hr currently- not meeting kcal or protein needs. TF rec's provided. Chart reviewed. Will continue to monitor. 09/29: Follow up. Pt remains intubated, sedated on high dose Propofol, and paralyzed. Pt requiring to be in intermittent prone positioning. TF infusing at 35 ml/hr, not meeting protein needs. TF rec's provided. Chart reviewed. Will continue to monitor. 09/25: Follow up. Chart reviewed. Pt remains intubated and sedated. Pt is receiving propofol at 7.8 mL/hr which provides 205 lipid kcal. TF is infusing at 20 mL/hr. Recommend modifying tube feed formula to Vital High Protein at this time. Will continue to monitor. 09/22: Follow up. Pt remains intubated, sedated, and paralyzed. Pt requiring proning. TF infusing at 10 ml/hr and TPN weaned to 20 ml/hr. Chart reviewed. TF and TPN rec's provided pending ability to advance TF. Will continue to monitor. 09/18: Follow up. Chart reviewed. Pt remains intubated and sedated. Pt was started on tube feeding. Last recorded rate was 20 mL/hr this afternoon. Pt continues to receive TPN @ 42 mL/hr. Propofol rate is at 13.4 mL/hr (provides 354 kcal). Recommendations provided. Will continue to monitor 09/15: Follow up. Pt remains intubated, sedated on Propofol at 19.6 ml/hr, and paralyzed. Pt continues on TPN at 42 ml/hr, not meeting needs. Pt continues with persistent ileus and is receiving enemas and suppositories. Pt requiring daily proning 2/2 respiratory status. TF order remains, recommend NPO for now. TPN goal rec's provided, continues at 42 ml/hr. Chart reviewed. Will continue to monitor. 09/11: Follow up. Chart reviewed. Pt remains intubated and sedated. Pt is receiving 30 mL/hr of propofol per documentation which provides 792 lipid kcal. Tube feeding has been held due to abdominal distention and pt was started on TPN @ 42 mL/hr today. MD note indicates pt has an ileus. Recommendations provided. Will continue to monitor. 09/07: Follow up. Chart reviewed. Pt remains intubated and sedated. Pt is receiving 23.6 mL/hr of propofol per documentation which provides 623 lipid kcal. TF was at 20 mL/hr last night per chart. Per MD note, pts abdomen is distended and has not had a BM. Will continue to monitor. 09/04: Follow up. Pt remains intubated and sedated. Pt is receiving 9 mL/hr of propofol per documentation, which provides 238 lipid kcal. TF was at 20 mL/hr per chart yesterday. No additional administration rate is available. Will continue to monitor. 09/02: Follow up. Pt remains intubated, paralyzed, and sedated on Propofol and Versed. Pt requiring proning. TF rate at 10 ml/hr per TF documentation yesterday- inadequate EN currently, no additional EN administration available per chart. Recommend continuing EN while pt is proned by placing them in reverse Trendelenburg position. If unable to advance TF to goal rate, recommend considering PN. Chart reviewed. Will continue to monitor. 08/29: Initial encounter with patient. Pt is sedated and orally intubated. Pt was not able to provide a nutrition Hx at the time of visit. Unable to observe oral cavity or perform a nutrition focused physical exam. Jevity 1.2 infusing at 20ml hr with a goal of 50ml/hr. Propofol provides 1.1kcal/ml EN provides 576 kcals, 26.64g of protein, and 387.36ml of free H2O Principal Problems/Diagnoses: CoVID 19 pneumonia PMH: No significant medical Hx, overweight/obesity GI: LBM 10/03- liquid stool Skin: stage 2 right ear pressure ulcer, penis ischemic edema, bilateral knees- ischemic edema , scrotal abrasion Labs: 10/09: Na 140, K 3.4, BUN 15, Cr 0.44, Glu 103 10/05: Na 139, K 3.3, BUN 15, Cr 0.42, Glu 113, Ca 8.2 10/01: Na 139, K 4, BUN 12, Cr 0.59, Gluc 141, POC Gluc 127-175 09/29: Na 138, K 2.9, BUN 5, Cr 0.39, Gluc 87, POC 107-116 09/25: Na 142, K 3.7, BUN 11, Cr 0.49, Ca 7.8, Glu 107 09/22: Na 145, K 3.3, Cl 93, CO2 38, BUN 5, Cr 0.5, Gluc 129, POC 97-130 09/18: Na 146, K 3.6, Cr 0.50, BUN 13, Glu 100, Ca 7.7, Total Bili 1.6, AST 43 09/15: Na 148, K 3.8, Cl 102, CO2 38, BUN 15, Cr 0.57, Gluc 111 09/11: Na 148, BUN 18, Cr 0.51, Glu 120, Ca 8.0 09/07: Na 144, K 3.8, BUN 13, Cr 0.52, Glu 92, Ca 7.8 09/04: Na 141, K 4.0, BUN 21, Cr 0.63, Glu 122 09/02: Na 139, K 4.2, BUN 19, Cr 0.61, Gluc 101 Meds: carafate, pepcid, antibiotic, vitamin B12, fentanyl, rocuronium, metoprolol, furosemide Ht: 67 in. Wt: 212 lbs (10/09) 236 lbs (10/05) 251 lbs (09/28) 253.5 lbs (09/25) 254.31 lb (09/22) 258 lbs (09/18) 254 lb (09/15)- questionable wt gain, 218 lbs (09/11/19) 219 lbs (08/28) 220 lbs (09/04) 215.31lb (09/02), 200.44lbs (08/29) BMI: 31.4kg/m2 (weight used- 200 lbs) IBW: 148 lbs Malnutrition Evaluation (09/30/2019) Unable to assess due to current isolation precautions. Will re-evaluate at follow-up as appropriate. Nutrition Prescription (Diet Order): Vital AF at 20 ml/hr - infusing at 30 mL/hr Estimated Nutritional Needs: 0931-3004 calories/day (22-25 kcal/kg IBW) 101-135 g protein/day (1.5-2 g pro/kg IBW) Diet Adequacy: not meeting calorie needs, Not meeting protein needs Diet Education Needs Assessment: Diet education not indicated. Nutrition Care Level: high- not meeting needs Nutrition Diagnosis: Inadequate energy and protein intake related to intubation as evidenced by pt requiring alternative means of nutrition. Goal: Patient will meet 75-100% of estimated needs by follow up Progress: goal not met Interventions: Composition, Rate, Route, Recommended modifications Monitoring/Evaluation: Total energy intake, Total protein intake, Formula/Solution, Prescription medication, Weight change Signed: Nina Reese, RD, LD
--- NOTE | 2019-10-10 17:21 | NUR ---
DEANNA 08 ON STRICT PUP STATUS AND INTERVENTIONS SURFACE-LOW AIR LOSS. LABS: WBC- 11.13 HGB- 7.7 ALBUMIN: 3.2 GLUCOSE- 103 MICRO: BLOOD CULTURE- PENDING SPUTUM FUNGAL CULTURE-PENDING. MEDS: MEROPENEM SEE E MAR FOR DOSAGE. UPON ARRIVAL TO UNIT PT IS PLACED IN PRONE POSITION DUE TO DEBILITATING DISEASE; STAGE II RIGHT EAR PRESSURE ULCER AND STAGE II LEFT ELBOW PRESSURE ULCER NOTED. PT IS CURRENTLY ON PRONE POSITION. SKIN ASSESSMENT: 1) RIGHT EAR STAGE II PRESSURE ULCER; MEASURING 1.2 CM X 0.8 CM. SEROUSANGUINOUS DRAINAGE PRESENT. MACERATED PERIWOUND. 2) RED BLANCHABLE REDNESS PRESENT TO LEFT EAR; MEASURING 1 CM X 1 CM. NO DRAINAGE PRESENT. 3) BLISTER FILLED WITH FLUID TO LEFT HALLUX; MEASURING 1.8 CM X 2 CM 4) BLISTER FILLED WITH SEROSANGUINEOUS FLUID TO RIGHT; RUPTURED; PERIWOUND DISCOLORED AND MACERATED. MEASURING 1.8 CM X 2 CM. 4) STAGE II PRESSURE ULCER TO LEFT ELBOW; 95% PINK GRANULATION; 5% FIBRIN; MEASURING 0.8 CM X 0.9 CM. PT HEMODYNAMICALLY UNSTABLE TO BE TURNING AT THE TIME. NURSING IS INSTRUCTED TO ASSESS SKIN INTEGRITY DAILY AND TO DESCRIBE SKIN DISRUPTIONS IN ASSESSMENT AND TO CONSULT WOUND CARE NEEDED. RECOMMENDATIONS: NURSING TO CLEAN RIGHT EAR ULCER WITH NORMAL SALINE, PAT DRY WITH 4X4 GAUZE, PAINT WITH BETADINE, APPLY ALLEVYN FOAM DAILY. NURSING TO PROTECT LEFT EAR AND AREAS THAT MAKE CONTACT WITH ANY PRESSURE POINT WITH ALLEVYN FOAM DAILY. NURSING TO CLEAN LEFT ELBOW STAGE 2 PRESSURE ULCER WITH NORMAL SALINE, PAT DRY WITH 4X4 GAUZE, APPLY VENELEX AND COVER WITH ALLEVYN FOAM DAILY. NURSING IS INSTRUCTED TO ASSESS SKIN INTEGRITY DAILY AND TO DESCRIBE SKIN DISRUPTIONS IN ASSESSMENT. NURSING TO MONITOR FACIAL/EAR SURFACE WHEN PT IS PRONE AND TO CONTINUE TO OFFLOAD WITH ALLEVYN FOAM. NURSING TO CONTINUE TO MONITOR PATIENT AND KEEP SKIN CLEAN AND FREE FROM STOOL OR IRRITATING MOISTURE AND CONTINUE TO FOLLOW STRICT PUP INTERVENTIONS DAILY. NURSING TO CONTINUE REPOSITION PT SIDE TO SIDE NEEDED. NURSING TO CONTINUE TO APPLY AIR LOW AIR MATTRESS. NURSING TO CONTINUE TO OFFLOAD FEET AND HEELS AT ALL TIMES WITH PILLOW SUSPENSION WHEN IN BED. NURSING TO APPLY BILATERAL HEEL PROTECTORS DAILY. NURSING TO CONTINUE TO ASSIST WITH PT NUTRITIONAL SUPPLEMENTS TO ENSURE PROPER REQUIREMENTS FOR HEALING. NURSING TO RE- CONSULT WOUND CARE NEEDED.
--- NOTE | 2019-10-10 17:29 | NUR ---
WOUND CARE INITIAL CONSULT FOR 44 YO MALE ADMITTED TO [facility] WITH A PRESENT HX OF COVID-19, PNEUMONIA DEANNA 08 ON STRICT PUP STATUS AND INTERVENTIONS SURFACE-LOW AIR LOSS. LABS: WBC- 11.13 HGB- 7.7 ALBUMIN: 3.2 GLUCOSE- 103 MICRO: BLOOD CULTURE- PENDING SPUTUM FUNGAL CULTURE-PENDING. MEDS: MEROPENEM SEE E MAR FOR DOSAGE. UPON ARRIVAL TO UNIT PT IS PLACED IN PRONE POSITION DUE TO DEBILITATING DISEASE; STAGE II RIGHT EAR PRESSURE ULCER AND STAGE II LEFT ELBOW PRESSURE ULCER NOTED. PT IS CURRENTLY ON PRONE POSITION. SKIN ASSESSMENT: 1) RIGHT EAR STAGE II PRESSURE ULCER; MEASURING 1.2 CM X 0.8 CM. SEROUSANGUINOUS DRAINAGE PRESENT. MACERATED PERIWOUND. 2) RED BLANCHABLE REDNESS PRESENT TO LEFT EAR; MEASURING 1 CM X 1 CM. NO DRAINAGE PRESENT. 3) BLISTER FILLED WITH FLUID TO LEFT HALLUX; MEASURING 1.8 CM X 2 XM 4) BLISTER FILLED WITH SEROSANGUINEOUS FLUID TO RIGHT HALLUX; PERIWOUND DISCOLORED AND MACERATED. MEASURING 1.8 CM X 2 CM. 4) STAGE II PRESSURE ULCER TO LEFT ELBOW; 95% PINK GRANULATION; 5% FIBRIN; MEASURING 0.8 CM X 0.9 CM. PT HEMODYNAMICALLY UNSTABLE TO BE TURNING AT THE TIME. NURSING IS INSTRUCTED TO ASSESS SKIN INTEGRITY DAILY AND TO DESCRIBE SKIN DISRUPTIONS IN ASSESSMENT AND TO CONSULT WOUND CARE NEEDED. RECOMMENDATIONS: NURSING TO CLEAN RIGHT EAR ULCER WITH NORMAL SALINE, PAT DRY WITH 4X4 GAUZE, APPLY VENELEX AND APPLY ALLEVYN FOAM DAILY. NURSING TO PROTECT LEFT EAR WITH ALLEVYN FOAM DAILY. NURSING TO CLEAN LEFT ELBOW STAGE 2 PRESSURE ULCER WITH NORMAL SALINE, PAT DRY WITH 4X4 GAUZE, APPLY VENELEX AND COVER WITH ALLEVYN FOAM DAILY. NURSING TO CLEAN LEFT AND RIGHT HALLUX BLISTERS WITH NORMAL SALINE DAILY, PAT DRY WITH 4X4 GAUZE, PAINT WITH BETADINE AND COVER WITH ALLEVYN FOAM DAILY. NURSING TO MONITOR SACRAL AREA DAILY. NURSING TO MONITOR FACIAL/EAR SURFACE WHEN PT IS PRONE AND TO CONTINUE TO OFFLOAD WITH ALLEVYN FOAM. NURSING TO CONTINUE TO MONITOR PATIENT AND KEEP SKIN CLEAN AND FREE FROM STOOL OR IRRITATING MOISTURE AND CONTINUE TO FOLLOW STRICT PUP INTERVENTIONS DAILY. NURSING TO CONTINUE REPOSITION PT SIDE TO SIDE NEEDED. NURSING TO CONTINUE TO APPLY AIR LOW AIR MATTRESS. NURSING TO CONTINUE TO OFFLOAD FEET AND HEELS AT ALL TIMES WITH PILLOW SUSPENSION WHEN IN BED. NURSING TO APPLY BILATERAL HEEL PROTECTORS DAILY. NURSING TO CONTINUE TO ASSIST WITH PT NUTRITIONAL SUPPLEMENTS TO ENSURE PROPER REQUIREMENTS FOR HEALING. NURSING TO RE- CONSULT WOUND CARE NEEDED. Addendum: 10/10/19 at 1745 by Domi Bunch RN Amended: Links added.
[2019-10-10] MEDS: FUROSEMIDE INJ 10 MG/ML 4 ML VIAL IV SCH (18:19)
[2019-10-10] MEDS ORDERED: VECURONIUM BROMIDE FOR INJ 20 MG VIAL ONE (19:56)
--- NOTE | 2019-10-10 20:30 | NUR ---
HEMATOLOGY/ONCOLOGY PROGRESS NOTE: HPI: Patient remains intubated, weaning off as tolerated, in COVID ICU. Patient tachycardic/hypotensive overnight. Hold anticoagulation for now. ROS: 14 point ROS unable to obtain secondary to patient intubated, sedated. PHYSICAL EXAM: Vitals: Reviewed as per EMR. Temp: 99.9degH degF HR: 129 PE not performed due to COVID-19 contact precautions. LABORATORY/RADIOLOGY DATA: Reviewed per EMR. ASSESSMENT AND PLAN: Mr. Miles is a 42-year-old male with past medical history of hypertension who was admitted on 08/24/2019 due to cough and fever. Patient was found to be positive for COVID-19. Intubated due to worsening respiratory status. Patient has been treated with full-dose Lovenox since 09/08/19. Has required PRBC previously during admission. Patient now with dropping platelet count and recurrent anemia requiring PRBC transfusion. Hematology/Oncology has been consulted to assist with the management. 1. Thrombocytopenia: Likely secondary to consumption for infection. DIC panel showed no coagulopathy, elevated fibrinogen, does not appear DIC. Acute hepatitis panel negative. Abdominal US without evidence of liver cirrhosis or splenomegaly. HIT panel negative. Will discontinue full-dose anticoagulation with Lovenox 1mg/kg subcu every 12 hours as platelet count is trending down however patient platelet count has fluctuated in the past. If counts continue to trend down will repeat HIT panel however this is less likely. If counts improve, will plan to restart anticoagulation with close monitoring. Anti-Xa level slightly subtherapeutic for lovenox in obese patient, defer to pharmacy for dose adjustment. Monitor. 2. Anemia: Anemia panel appears mixed picture AOCD + RODRIGUEZ with noted low B12 level. Macrocytosis probably combination of B12 deficiency and possibly also related to bone marrow suppression from viral infection. Ferritin mildly elevated, likely as acute phase reactant. Repeat ferritin significantly more elevated hold IV iron. Reticulocyte count and LDH mildly elevated, haptoglobin elevated, does not appear hemolysis. S/P 1 unit PRBC transfused on 10/03/19. Continue B12 IM daily per GI on board. Hemoglobin trending down this morning. Repeat CBC in the morning. Monitor closely. 3. COVID-19 PNA: In the ICU, pharmacologically sedated and intubated with weaning off vent as tolerated, on pressure control. On TPN. Undergoing intermittent proning. CXR with mild improvement in bibasilar opacities on 10/09/2019. Temp 99.9degF, hypotenisve overnight and remains tachycardic. Blood cultures final negative. On IV antibiotics. Pulmonary and infectious disease on board. 4. Melena/ileus/abd distention: On Pepcid IV. Improved. On TFs with nutrition on board. 5. Fluid overload/oligoanuria: On diuresis, UOP improved per Nephrology on board. 6. DVT proph: Held dose Lovenox as per #1/3. 7. GOC: Patient being re-evaluated for possible trach placement. Above plan discussed with Dr. Lona Martinez. Thank you for the consult. I will be available. Please call with questions.
[2019-10-10] MEDS: ACETAZOLAMIDE 250 MG TAB NG SCH (20:33)
--- NOTE | 2019-10-10 20:34 | NUR ---
Dr. Max Lowry ordered to leave pt prone throughout entire night and not to bring pt to CT.
[2019-10-10 23:45] LABS: ABG HCO3 33 mmol/L (22-26); ABG PCO2 66 mmHg (35-45); ABG PH 7.31 (7.35-7.45); ABG PO2 91 mmHg (80-105); ABG TCO2 35
--- NOTE | 2019-10-10 23:58 | Progress Note ---
DATE: 10/10/2019 SUBJECTIVE: Intubated, sedated, cannot give history. OBJECTIVE: VITAL SIGNS: Temperature 99.9, pulse 110, respiratory rate 30, blood pressure 104/53. GENERAL: Sedated and intubated. SKIN: No rash. HEENT: Endotracheal tube in place. LUNGS: Decreased breath sounds. HEART: Tachycardic. Normal S1, S2. GI: Abdomen is soft, nondistended. NEUROLOGIC: Sedated. PSYCHIATRIC: Sedated. LABORATORY DATA: Laboratory white count 11, hemoglobin 8, platelet count 113, creatinine 0.4. C. diff is in negative. ASSESSMENT AND PLAN: 1. Acute respiratory failure due to COVID-19 pneumonia. We will continue Lasix drip and vent management per time recorder. We will continue meropenem per Infectious Disease specialist. During sedation holiday last night, the patient attempted to mouth some words. 2. Thrombocytopenia. Discussed with Dr. Martinez. We will hold Lovenox. 3. Chronic blood loss anemia, stable. 4. Gastrointestinal and deep vein thrombosis prophylaxis. We will hold Lovenox for now until further recommendation from pest technician. MD ALIN Allred/ANGELA /[id number]
[2019-10-11] VITALS (20 sets, daily range): BP systolic 79–168; BP diastolic 39–78
[2019-10-11] MEDS: EYE LUBRICANT OPTH OINT 3.5GM TUBE OP SCH ×4 (00:27→18:39)
[2019-10-11] MEDS: MEROPENEM 1GM 100 ML IV SCH ×2 (00:35→09:00)
[2019-10-11] MEDS: MIDAZOLAM HCL 50 MG in SODIUM CHLORIDE 0.9% 100 ML 90 ML IV PRN ×5 (00:44→21:16)
[2019-10-11] MEDS: METOPROLOL TARTRATE INJ 1 MG/ML VIAL IV PRN (01:00)
[2019-10-11] MEDS: ROCURONIUM BROMIDE 1,250 MG in SODIUM CHLORIDE 0.9% 250ML 125 ML IV PRN (01:07)
--- NOTE | 2019-10-11 02:34 | Progress Note ---
DATE: 10/10/2019 Cardiology Progress Note SUBJECTIVE: Remains intubated and sedated. Edematous. OBJECTIVE: VITAL SIGNS: Temperature 99.2, heart rate 131 on telemetry in sinus tachycardia, blood pressure stable O2 saturation 92% on vent support. GENERAL: Intubated, sedated, in prone position. NECK: Supple. CHEST: With rales and decreased breath sounds. CARDIOVASCULAR: Regular rate and rhythm. Normal S1, S2. Tachycardic. ABDOMEN: Bowel sounds positive. EXTREMITIES: With significant pitting edema to lower extremities and normothermic. CARDIOVASCULAR MEDICATIONS: Reviewed. Continues to be on furosemide, however, now scheduled IV 40 q.12 hours, potassium chloride 20 mEq b.i.d., Lovenox 40 mg q.12 hours, metoprolol tartrate LABORATORY DATA: Studies reviewed. Sodium 140, potassium 3.4, chloride 100, bicarbonate 32, BUN 15, creatinine 0.44, glucose 103. White blood cells 11.1, hemoglobin 7.7, platelets 113. PT 14.5, PTT 37.7, INR 1.07. AST 19, ALT 36, total bilirubin 0.7, alkaline phosphatase 150. ASSESSMENT AND PLAN: A 44-year-old man presents with coronavirus disease-19 infection, community-acquired pneumonia, acute respiratory failure, requiring prolonged ventilatory support, volume overload, acute on chronic diastolic heart failure, hypertension, obesity, anemia. RECOMMENDATIONS: Continue current cardiovascular medications, particular emphasis on continued diuresis as the patient remains significantly volume overloaded on exam. Note: Significant muscle wasting attributable to prolonged immobility given significantly prolonged hospital stay. Admitted on 08/24/2019, now month and a half into this hospital admission, remains immobilized. Expect prolonged rehab needs. Continues to be gradually weaned off ventilator support. MD OPAL Del Valle/ANGELA /[id number]
[2019-10-11] MEDS: FUROSEMIDE INJ 10 MG/ML 4 ML VIAL IV SCH (04:04)
[2019-10-11] MEDS: FENTANYL 2000MCG/NS 250 250 ML IV PRN ×3 (04:11→16:33)
[2019-10-11 05:25] LABS: BASOPHILS % 0.2 % (0.0-1.0); EOSINOPHILS # (AUTO) 1.2 (0.0-0.4); EOSINOPHILS % 9.6 % (0.0-6.0); HEMOGLOBIN 7.9 g/dL (14.0-18.0); LYMPHOCYTES # (AUTO) 0.6 (1.0-3.2); LYMPHOCYTES % 4.9 % (18.0-39.1); MEAN CORPUSCULAR HEMOGLOBIN 28.3 pg (28-32); MEAN CORPUSCULAR HGB CONC 30.4 g/dL (31-35); MEAN CORPUSCULAR VOLUME 93.2 fL (81-99); MONOCYTES # (AUTO) 0.9 (0.2-0.8); MONOCYTES % 7.2 % (4.4-11.3); NEUTROPHILS # (AUTO) 9.7 (2.1-6.9); NEUTROPHILS % 77.5 % (38.7-80.0); PLATELET COUNT 176 x10e3/uL (140-360); RED BLOOD COUNT 2.79 x10e6/uL (4.3-5.7); RED CELL DISTRIBUTION WIDTH 15.2 % (11.7-14.4)
[2019-10-11 05:53] LABS: ALANINE AMINOTRANSFERASE 30 IU/L (0-55); ALBUMIN 3.1 g/dL (3.5-5.0); ALKALINE PHOSPHATASE 172 IU/L (40-150); ANION GAP 12.6 mmol/L (8-16); BLOOD UREA NITROGEN 14 mg/dL (7-26); BUN/CREATININE RATIO 32 (6-25); CALCIUM 9.3 mg/dL (8.4-10.2); CARBON DIOXIDE 30 mmol/L (22-29); CHLORIDE 101 mmol/L (98-107); CREATININE, SERUM 0.44 mg/dL (0.72-1.25); EST GLOMERULAR FILTRATION RATE > 60 ML/MIN (60-); GLUCOSE 100 mg/dL (74-118); MAGNESIUM 2.1 MG/DL (1.3-2.1); PHOSPHORUS 1.7 MG/DL (2.3-4.7); POTASSIUM 3.6 mmol/L (3.5-5.1); SODIUM 140 mmol/L (136-145)
[2019-10-11] MEDS: SUCRALFATE 1 GM/10 ML SUSP NG SCH ×4 (07:30→20:26)
[2019-10-11 08:32] LABS: ABG HCO3 30 mmol/L (22-26); ABG PCO2 54 mmHg (35-45); ABG PH 7.36 (7.35-7.45); ABG PO2 150 mmHg (80-105); ABG TCO2 31
[2019-10-11] MEDS: BALSAM PERU/CASTOR OIL 60 GM OINT...G. TP SCH (09:00)
[2019-10-11] MEDS: ACETAZOLAMIDE 250 MG TAB NG SCH ×2 (09:00→20:26)
[2019-10-11] MEDS: CYANOCOBALAMIN INJ 1,000 MCG/ML VIAL IM SCH (09:00)
[2019-10-11] MEDS ORDERED: BALSAM PERU/CASTOR OIL 60 GM OINT...G. TP SCH (09:00)
[2019-10-11] MEDS: POTASSIUM CHLORIDE 20MEQ/15ML UDC NG SCH ×3 (09:00→20:26)
[2019-10-11] MEDS: FAMOTIDINE 20 MG/2 ML VIAL IV SCH ×2 (09:00→18:39)
[2019-10-11] MEDS: METOPROLOL TARTRATE 25 MG TAB PO SCH ×2 (09:00→20:25)
[2019-10-11] MEDS ORDERED: DEXMEDETOMIDINE HCL 200 MCG in SODIUM CHLORIDE 0.9% 50ML 48 ML IV PRN ×2 (11:15→13:15)
--- NOTE | 2019-10-11 11:19 | Progress Note ---
DATE: SUBJECTIVE: The patient is currently on a PRVC mode of ventilation. He is on pressure control. His pressure control is set at 26 above PEEP and PEEP is set at 6. His FiO2 is set at 50%. His respiratory rate is set at 32. His plateau pressure is 29. PHYSICAL EXAMINATION: VITAL SIGNS: The T-max is 100.7. The blood pressure is 142/74, heart rate is 110-120. Saturation is 100%. He is on the above-mentioned settings. He is on Versed and fentanyl as well as rocuronium 0.009. HEENT: No facial swelling or erythema. The oropharynx is normal. LYMPHATIC: No submandibular, cervical, or supraclavicular adenopathy. CARDIAC: Regular rate and rhythm with normal S1, S2. LUNGS: Auscultation of lungs reveals rhonchorous breath sounds bilaterally. There is no wheezing. ABDOMEN: Soft, nontender. There is no rebound or guarding. EXTREMITIES: No leg edema or calf tenderness. LABORATORY DATA: White blood cell count is 12.6 and hemoglobin 7.9. The platelet count is a 176. The BUN to creatinine ratio is 14 to 0.44 and the other electrolytes are within normal limits. Albumin is 3.1. RADIOGRAPHIC DATA: Bilateral infiltrates. IMPRESSION: 1. Acute respiratory failure. 2. Viral pneumonia and coronavirus disease-19 infection. 3. Thrombocytopenia. 4. Hypokalemia. 5. Anemia. 6. Anasarca. PLAN: 1. Continue current antibiotics. 2. Place the patient back in the supine position. 3. Continue Versed and fentanyl. Possible switch rocuronium to Nimbex to avoid worsening tachycardia. 4. Continue Lovenox. 5. Continue to monitor platelet counts. 6. Tracheostomy plan for Sunday. Case discussed with nightshift nursing, dayshift nursing, Infectious Disease, Respiratory and family. Greater than 35 minutes in direct critical care time. Maximilian Lowry MD [facility]/MODL /[id number]
[2019-10-11] MEDS ORDERED: DEXMEDETOMIDINE 200MCG/NS 50ML 100 ML IV ONE (11:58)
--- NOTE | 2019-10-11 11:58 | NUR ---
PHYSICAL EXAMINATION: VITAL SIGNS: The T-max is 100.7. The blood pressure is 142/74, heart rate is 110-120. Saturation is 100%. He is on the above-mentioned settings. He is on Versed and fentanyl as well as rocuronium 0.009. HEENT: No facial swelling or erythema. The oropharynx is normal. LYMPHATIC: No submandibular, cervical, or supraclavicular adenopathy. CARDIAC: Regular rate and rhythm with normal S1, S2. LUNGS: Auscultation of lungs reveals rhonchorous breath sounds bilaterally. There is no wheezing. ABDOMEN: Soft, nontender. There is no rebound or guarding. EXTREMITIES: No leg edema or calf tenderness. LABORATORY DATA: White blood cell count is 12.6 and hemoglobin 7.9. The platelet count is a 176. The BUN to creatinine ratio is 14 to 0.44 and the other electrolytes are within normal limits. Albumin is 3.1. RADIOGRAPHIC DATA: Bilateral infiltrates. IMPRESSION: 1. Acute respiratory failure. 2. Viral pneumonia and coronavirus disease-19 infection. 3. Thrombocytopenia. 4. Hypokalemia.
[2019-10-11] MEDS ORDERED: ENOXAPARIN INJ 80 MG/0.8 ML SYR SC SCH ×2 (13:00→21:00)
--- NOTE | 2019-10-11 13:20 | Progress Note ---
DATE: SUBJECTIVE: This is day #48. Discussed with the family. Prognosis remains very guarded. The patient remains intubated. His vent setting was also reviewed. He is running low fever. OBJECTIVE: HEENT: Normocephalic. NECK: Supple. CHEST: Crackles. HEART: S1, S2. No S3, S4, or murmur. ABDOMEN: Soft. Bowel sounds present. EXTREMITIES: No edema. SKIN: No rash. LABORATORY DATA: Blood cultures negative, nothing new. His white count is 12.59 and hemoglobin 7.9. IMPRESSION: Respiratory failure, coronavirus disease-19. Concern about aspiration. We will keep monitoring the patient. We will follow. MD MAYURI Taylor/ANGELA /[id number]
[2019-10-11 13:28] LABS: CLARITY,URINE SL CLOUDY (CLEAR); COLOR,URINE YELLOW (YELLOW)
[2019-10-11 13:29] LABS: LEUKOCYTE ESTERASE ,URINE NEGATIVE (NEGATIVE); NITRITE,URINE NEGATIVE (NEGATIVE); PROTEIN,URINE DIPSTICK 2+ (NEGATIVE)
[2019-10-11 13:30] LABS: BILIRUBIN,URINE NEGATIVE (NEGATIVE); KETONES,URINE NEGATIVE (NEGATIVE); URINE UROBILINOGEN 8 mg/dL (0.2 - 1)
[2019-10-11 13:31] LABS: BACTERIA,URINE RARE /HPF; EPITHELIAL CELLS,URINE FEW /LPF
--- NOTE | 2019-10-11 14:15 | Progress Note ---
DATE: 10/11/2019 Cardiology Progress Note SUBJECTIVE: Mr. Miles remains intubated and sedated. OBJECTIVE: VITAL SIGNS: Temperature 96.7, heart rate 136, sinus tachycardia on telemetry, blood pressure 168/70, respiratory rate 32, and O2 saturation 88%. GENERAL: Intubated and sedated. NECK: Supple. CHEST: With rales and decreased breath sounds. CARDIOVASCULAR: Regular rate and rhythm. Normal S1 and S2. ABDOMEN: Soft. Bowel sounds positive. EXTREMITIES: With significant edema. Normothermic. CARDIOVASCULAR MEDICATIONS: Reviewed, on furosemide 80 IV q.12 hours, potassium chloride replacement, metoprolol tartrate 5 q.6 hours IV and 25 q.12 hours. STUDIES: Reviewed. Creatinine 0.4, potassium 3.6, bicarbonate 30, BUN 14, sodium 140, and chloride 101. White blood cells 12.5, hemoglobin 7.9, and platelets 176. INR 1.07. AST 19, ALT 30, and alkaline phosphatase 172. ASSESSMENT AND PLAN: A 44-year-old man presents with [id number] diastolic heart failure, hypertension, anemia, COVID-19 infection, community-acquired pneumonia, significant volume overload. RECOMMEND: Continue diuresis. Replete electrolytes as needed. Continue rest of cardiovascular medications. MD OPAL Del Valle/ANGELA /[id number]
--- NOTE | 2019-10-11 15:37 | Diagnostic Imaging Report ---
EXAMINATION: CHEST SINGLE (PORTABLE) INDICATION: Respiratory failure COMPARISON: Multiple prior chest x-rays including most recent on 10/10/2019. FINDINGS: TUBES and LINES: Endotracheal tube which terminates approximately 4 cm above the fred, right PICC and subdiaphragmatic enteric tube are unchanged. LUNGS: No interval changes in multifocal patchy interstitial and airspace opacities throughout both lungs. PLEURA: No pleural effusion or pneumothorax. HEART AND MEDIASTINUM: The cardiomediastinal silhouette is obscured. BONES AND SOFT TISSUES: No acute osseous lesion. Soft tissues are unremarkable. UPPER ABDOMEN: No free air under the diaphragm. IMPRESSION: 1. Stable lines/tubes. 2. No interval changes in multifocal patchy interstitial and airspace opacities throughout both lungs. Signed by: Peter Gibbs MD on 10/11/2019 3:34 PM
[2019-10-11] MEDS ORDERED: FUROSEMIDE INJ 10 MG/ML 4 ML VIAL IV SCH (16:00)
[2019-10-11] MEDS: SODIUM CHLORIDE 0.9% IV PRN (17:00)
[2019-10-11] MEDS: CISATRACURIUM BESYLATE IV PRN (17:00)
[2019-10-11] MEDS ORDERED: VECURONIUM BROMIDE FOR INJ 20 MG VIAL ONE (17:05)
--- NOTE | 2019-10-11 19:00 | NUR ---
Ho catheter exchanged by day shift nursing staff with no complications.
--- NOTE | 2019-10-11 19:31 | Operative Report ---
DATE OF PROCEDURE: SURGEON: Maximilian Lowry MD PROCEDURE: Central line placement under ultrasound guidance. PREOPERATIVE DIAGNOSES: Anasarca and respiratory failure. POSTOPERATIVE DIAGNOSES: Anasarca and respiratory failure. CONSENT: Procedure was deemed emergent due to hemodynamic instability and tachycardia. ANESTHESIA: 1% lidocaine for local anesthesia. PROCEDURE IN DETAIL: The left neck was prepped sterilely with chlorhexidine. A full length sterile drape, sterile gown, sterile gloves, and sterile mask were used. 1% lidocaine was used to anesthetize the area over the head of the sternocleidomastoid. An ultrasound machine was used to locate the left internal jugular vein. The left internal jugular vein was cannulated under direct visualization with a 16-gauge needle. A wire was then passed through the needle. The dilator was used to open the skin. A triple-lumen catheter was placed over the wire by the Seldinger technique. All the ports flushed. COMPLICATIONS: None. ESTIMATED BLOOD LOSS: None. Maximilian Lowry MD [facility]/MODL /[id number]
--- NOTE | 2019-10-11 19:44 | Diagnostic Imaging Report ---
EXAMINATION: CHEST SINGLE (PORTABLE) INDICATION: status post left IJ TLDL. COMPARISON: Multiple prior radiographs including most recent earlier today. FINDINGS: TUBES and LINES: Interval placement of left internal jugular central venous catheter which terminates in the right atrium. The right PICC, endotracheal tube and subdiaphragmatic enteric tubes are unchanged. LUNGS: No interval changes in multifocal patchy interstitial and airspace opacities throughout both lungs. PLEURA: No pleural effusion or pneumothorax. HEART AND MEDIASTINUM: The cardiomediastinal silhouette is obscured. BONES AND SOFT TISSUES: No acute osseous lesion. Soft tissues are unchanged. UPPER ABDOMEN: No free air under the diaphragm. IMPRESSION: 1. Interval placement of right internal jugular central venous catheter which terminates in the right atrium. Otherwise stable lines/tubes. 2. No interval changes in multifocal patchy interstitial and airspace opacities throughout both lungs. Signed by: Peter Gibbs MD on 10/11/2019 7:40 PM
[2019-10-11] MEDS: ENOXAPARIN SOD INJ 40 MG/0.4 ML SYR SC SCH (20:25)
[2019-10-11 21:10] LABS: ABG HCO3 33 mmol/L (22-26); ABG PCO2 76 mmHg (35-45); ABG PH 7.25 (7.35-7.45); ABG PO2 105 mmHg (80-105); ABG TCO2 36
[2019-10-11] MEDS: PROPOFOL IV EMULSION 10MG/ML 100 ML IV PRN (21:15)
[2019-10-11] MEDS ORDERED: SODIUM CHLORIDE 0.9% 100 ML ONE (21:19)
[2019-10-11] MEDS ORDERED: FUROSEMIDE INJ 10 MG/ML 10 ML VIAL ONE (21:20)
[2019-10-11] MEDS: FUROSEMIDE INJ 100 MG in SODIUM CHLORIDE 0.9% 100 ML 90 ML IV SCH (21:34)
[2019-10-12] VITALS (20 sets, daily range): BP systolic 90–180; BP diastolic 46–65
[2019-10-12] MEDS: EYE LUBRICANT OPTH OINT 3.5GM TUBE OP SCH ×4 (01:26→18:44)
[2019-10-12] MEDS: FENTANYL 2000MCG/NS 250 250 ML IV PRN ×4 (01:26→20:47)
[2019-10-12] MEDS: MIDAZOLAM HCL 50 MG in SODIUM CHLORIDE 0.9% 100 ML 90 ML IV PRN ×4 (01:26→23:14)
[2019-10-12] MEDS: PROPOFOL IV EMULSION 10MG/ML 100 ML IV PRN ×3 (05:29→19:10)
[2019-10-12 06:43] LABS: BASOPHILS % 0.3 % (0.0-1.0); EOSINOPHILS # (AUTO) 0.6 (0.0-0.4); EOSINOPHILS % 4.8 % (0.0-6.0); LYMPHOCYTES # (AUTO) 0.7 (1.0-3.2); LYMPHOCYTES % 5.5 % (18.0-39.1); MEAN CORPUSCULAR HEMOGLOBIN 27.8 pg (28-32); MEAN CORPUSCULAR VOLUME 92.8 fL (81-99); MONOCYTES # (AUTO) 0.9 (0.2-0.8); MONOCYTES % 6.5 % (4.4-11.3); NEUTROPHILS # (AUTO) 10.8 (2.1-6.9); NEUTROPHILS % 82.2 % (38.7-80.0); PLATELET COUNT 141 x10e3/uL (140-360); RED BLOOD COUNT 2.37 x10e6/uL (4.3-5.7); RED CELL DISTRIBUTION WIDTH 15.2 % (11.7-14.4)
[2019-10-12 07:04] LABS: HEMOGLOBIN 6.6 g/dL (14.0-18.0)
[2019-10-12 07:21] LABS: ALANINE AMINOTRANSFERASE 26 IU/L (0-55); ALBUMIN 3.3 g/dL (3.5-5.0); ALBUMIN/GLOBULIN RATIO 1.3 (0.8-2.0); ALKALINE PHOSPHATASE 160 IU/L (40-150); ANION GAP 13.7 mmol/L (8-16); BLOOD UREA NITROGEN 14 mg/dL (7-26); BUN/CREATININE RATIO 33 (6-25); CALCIUM 9.2 mg/dL (8.4-10.2); CARBON DIOXIDE 28 mmol/L (22-29); CHLORIDE 102 mmol/L (98-107); CREATININE, SERUM 0.43 mg/dL (0.72-1.25); EST GLOMERULAR FILTRATION RATE > 60 ML/MIN (60-); GLUCOSE 88 mg/dL (74-118); POTASSIUM 3.7 mmol/L (3.5-5.1); SODIUM 140 mmol/L (136-145)
[2019-10-12 08:16] LABS: ABG PH 7.45 (7.35-7.45)
[2019-10-12 08:17] LABS: ABG HCO3 29 mmol/L (22-26); ABG PCO2 42 mmHg (35-45); ABG PO2 123 mmHg (80-105); ABG TCO2 30
[2019-10-12] MEDS ORDERED: ACETAMINOPHEN 325 MG TAB PO STA (08:18)
[2019-10-12] MEDS ORDERED: DEXAMETHASONE SOD PHOS 10 MG/1 ML VIAL IV ONE (08:30)
[2019-10-12] MEDS ORDERED: SODIUM CHLORIDE 0.9% 250ML 250 ML IV ONE (08:30)
[2019-10-12] MEDS: ACETAZOLAMIDE 250 MG TAB NG SCH ×2 (09:38→22:47)
[2019-10-12] MEDS: SUCRALFATE 1 GM/10 ML SUSP NG SCH ×4 (09:38→22:47)
[2019-10-12] MEDS: BALSAM PERU/CASTOR OIL 60 GM OINT...G. TP SCH (09:38)
[2019-10-12] MEDS: CYANOCOBALAMIN INJ 1,000 MCG/ML VIAL IM SCH (09:38)
[2019-10-12] MEDS: FAMOTIDINE 20 MG/2 ML VIAL IV SCH ×2 (09:38→18:42)
--- NOTE | 2019-10-12 09:38 | Progress Note ---
DATE: SUBJECTIVE: The patient is afebrile. The patient had difficulty in the supine position yesterday. He had to be placed back in the prone position in the evening. He is currently on Nimbex as well as Versed and fentanyl. He is also on a Lasix drip at 5 mg an hour. His T-max is 101.6. His current ventilator settings are rate of 32 with a PEEP of 8 and pressure above PEEP of 28. His FiO2 is set at 60%. PHYSICAL EXAMINATION: VITAL SIGNS: The blood pressure is 123/46 and the pulse is 110 to 120. His saturation now 100%. He has an oral endotracheal tube. HEENT: Shows no facial swelling or erythema. CARDIAC: Reveals regular rate and rhythm. Normal S1 and S2. LUNGS: Auscultation of the lungs shows crackles at the bases. There is no wheezing. ABDOMEN: Soft and nontender. There is no rebound or guarding. EXTREMITIES: Shows 2+ edema in the lower extremities. LABORATORY DATA: Hemoglobin is decreased to 6.6 today. The platelet count is 141 and the white blood cell count is 13.1. BUN to creatinine ratio is 14 to 0.43. The other electrolytes are within normal limits. Albumin is 3.3. The blood gases; 7.45, 42, 123 and 29. RADIOGRAPHIC DATA: Chest x-ray shows continued bilateral infiltrates. IMPRESSION: 1. Anemia secondary to chronic blood loss. 2. Acute respiratory failure. 3. Viral pneumonia and COVID-19 infection. 4. Persistent fevers. 5. Thrombocytopenia. 6. Anasarca. PLAN: 1. Continue to adjust ventilator as required. 2. The patient to receive 2 units of packed red blood cells a day. 3. Continue Versed and fentanyl along with Nimbex. 4. Continue Lovenox at 0.5 mg/kg twice a day for now. 5. Repeat sputum for fungal cultures and Gram stain. 6. Tracheostomy is now on hold because the patient has difficulty breathing in the supine position. It would be extremely difficult to place the patient in the prone position with a fresh trach. 7. Case discussed with Infectious Disease, General Surgery, Respiratory, nightshift nursing, dayshift nursing and family. Greater than 35 minutes in direct critical care time. Maximilian Lowry MD [facility]/ANGELA /[id number]
[2019-10-12] MEDS: POTASSIUM CHLORIDE 20MEQ/15ML UDC NG SCH ×3 (09:39→22:47)
[2019-10-12] MEDS: METOPROLOL TARTRATE 25 MG TAB PO SCH ×2 (09:39→23:15)
[2019-10-12] MEDS: ENOXAPARIN SOD INJ 40 MG/0.4 ML SYR SC SCH ×2 (10:07→22:47)
[2019-10-12] MEDS ORDERED: DEXAMETHASONE SOD PHOS INJ 4 MG/ML VIAL IV ONE (10:30)
[2019-10-12] MEDS ORDERED: ACETAMINOPHEN 325 MG/10 ML UDC PO ONE (10:30)
[2019-10-12] MEDS: SODIUM CHLORIDE 0.9% IV PRN (11:27)
[2019-10-12] MEDS: CISATRACURIUM BESYLATE IV PRN (11:27)
[2019-10-12 12:47] LABS: ABG PCO2 46 mmHg (35-45); ABG PH 7.41 (7.35-7.45)
[2019-10-12 12:48] LABS: ABG HCO3 29 mmol/L (22-26); ABG PO2 97 mmHg (80-105); ABG TCO2 30
[2019-10-12 14:43] LABS: ABG HCO3 29 mmol/L (22-26); ABG PCO2 46 mmHg (35-45); ABG PH 7.41 (7.35-7.45); ABG PO2 97 mmHg (80-105); ABG TCO2 30
--- NOTE | 2019-10-12 15:20 | Diagnostic Imaging Report ---
EXAMINATION: CHEST SINGLE (PORTABLE) INDICATION: Evaluation of pneumonia. COMPARISON: Multiple prior radiographs including most recent on 10/11/2019. FINDINGS: TUBES and LINES: Left internal jugular central venous catheter, right PICC, endotracheal tube and subdiaphragmatic enteric tubes are unchanged. LUNGS: No significant interval changes in multifocal patchy interstitial and airspace opacities throughout both lungs. PLEURA: No pleural effusion or pneumothorax. HEART AND MEDIASTINUM: The cardiomediastinal silhouette is obscured by the lung opacities. BONES AND SOFT TISSUES: No acute osseous lesion. Soft tissues are unchanged. UPPER ABDOMEN: No free air under the diaphragm. IMPRESSION: 1. Stable support lines and tubes as above. 2. No significant interval changes in multifocal patchy interstitial and airspace opacities throughout both lungs, compatible with multifocal pneumonia. Signed by: Peter Gibbs MD on 10/12/2019 3:16 PM
[2019-10-12] MEDS: FUROSEMIDE INJ 100 MG in SODIUM CHLORIDE 0.9% 100 ML 90 ML IV SCH (18:42)
--- NOTE | 2019-10-12 20:00 | Progress Note ---
DATE: 10/12/2019 SUBJECTIVE: The patient is intubated and sedated, unable to obtain any information. OBJECTIVE: VITAL SIGNS: Temperature 101.4, pulse is 113, respirations 32, blood pressure 111/50, pulse ox is 100% on the vent. GENERAL: Sedated and intubated. LUNGS: Decreased breath sounds. CARDIOVASCULAR: Tachycardia, normal S1 and S2. ABDOMEN: Soft and nondistended. : Ho. NEURO: Sedated. MUSCULOSKELETAL: Generalized edema +2 to 3. LABORATORY DATA: WBC 13.15, hemoglobin 6.6, hematocrit 22.0, platelets 141. Sodium 140, potassium 3.7, BUN 14, creatinine 0.43, AST 20, ALT 26. Chest x-ray, no significant interval changes and multifocal patchy interstitial and airspace opacities throughout both lungs, compatible with multifocal pneumonia. ASSESSMENT: 1. Acute respiratory failure due to COVID-19 pneumonia. Chest x-ray with multifocal pneumonia. Remains on vent. Management per vp informatics. Continue on meropenem per ID. 2. Acute on chronic blood loss anemia, hemoglobin is 6.6, pending transfusion of 2 units of blood. 3. Thrombocytopenia, hematology on the case. 4. Recurrent fever, sputum culture is pending final results. We will defer to Infectious Disease. 5. GI and DVT prophylaxis, continue Lovenox 40 mg subcu b.i.d. and Pepcid. PLAN: Plan is to continue current treatment. Transfuse 3 units of blood and repeat labs in a.m. We will hold off on tracheostomy due to hypoxia when supine and recurrent fever. Dictated by SNEHAL Laguerre Taylor Aparicio MD [facility] /[id number]
[2019-10-12 20:18] LABS: ABG HCO3 29 mmol/L (22-26); ABG PCO2 53 mmHg (35-45); ABG PH 7.35 (7.35-7.45); ABG PO2 76 mmHg (80-105)
[2019-10-12 20:19] LABS: ABG TCO2 31
--- NOTE | 2019-10-12 21:20 | Progress Note ---
DATE: 10/12/2019 Cardiology Progress Note SUBJECTIVE: Intubated and sedated. OBJECTIVE: VITAL SIGNS: Temperature 102.7, heart rate 125, blood pressure 90/49, respiratory rate 32, O2 saturation 95%. GENERAL: Intubated and sedated, in prone position. NECK: Supple. CHEST: Clear to auscultation. CARDIOVASCULAR: Regular rate and rhythm. Normal S1 and S2. No S3 or S4. ABDOMEN: Bowel sounds positive, EXTREMITIES: With pitting edema persistent. ASSESSMENT: The patient with coronavirus disease-2019 and the patient with community-acquired pneumonia, acute respiratory failure with prolonged ventilatory support, hypertension, acute on chronic diastolic heart failure, anemia, persistent volume overload. RECOMMEND: Continue diuretics and up titrate dosing of furosemide. Continue to monitor H and H. The patient is undergoing PRBC transfusion today. Monitor for any gross bleeding. Continue rest of cardiovascular medications. John Romero MD [facility]/MODL /[id number]
[2019-10-12] MEDS: METOPROLOL TARTRATE INJ 1 MG/ML VIAL IV PRN (22:36)
--- NOTE | 2019-10-12 22:40 | Progress Note ---
DATE: 10/12/2019 Nephrology Progress Note SUBJECTIVE: The patient remains on ventilator support for COVID pneumonia. Blood pressure is controlled, requiring no vasopressors. Urine output remains good on IV Lasix infusion. OBJECTIVE: VITAL SIGNS: Stable. Blood pressure 117/52, pulse 120 per minute. NECK: Without JVP. RESPIRATORY: Bilateral air entry to mechanical breath. CARDIOVASCULAR: Regular rate and rhythm. ABDOMEN: Not distended. EXTREMITIES: Both lower legs have edema. LABORATORY DATA: Hemoglobin down to 6.6, white count 13, and platelet count of 141,000. Potassium. 3.7, bicarb 28, sodium 140, BUN and creatinine normal. Total calcium 9.2. Serum albumin 3.3. IMPRESSION: 1. Hypokalemia, replaced by the regular doses of potassium bicarbonate through feeding tube. Increased dose today to 30 mEq b.i.d. Also, receiving IV potassium p.r.n. 2. Renal function remains preserved. 3. Fluid overload, continue with IV Lasix infusion. Monitor for electrolytes and serum bicarbonate. One loop diuretics. 4. COVID pneumonia, treatment per ICU team. Marcos Marsh MD [facility]/MODL /[id number]
[2019-10-12 23:33] LABS: ALANINE AMINOTRANSFERASE 35 IU/L (0-55); ALBUMIN 3.2 g/dL (3.5-5.0); ALKALINE PHOSPHATASE 222 IU/L (40-150); ANION GAP 13.7 mmol/L (8-16); BLOOD UREA NITROGEN 13 mg/dL (7-26); BUN/CREATININE RATIO 25 (6-25); CALCIUM 9.1 mg/dL (8.4-10.2); CARBON DIOXIDE 28 mmol/L (22-29); CHLORIDE 102 mmol/L (98-107); CREATININE, SERUM 0.51 mg/dL (0.72-1.25); EST GLOMERULAR FILTRATION RATE > 60 ML/MIN (60-); GLUCOSE 137 mg/dL (74-118); POTASSIUM 3.7 mmol/L (3.5-5.1); SODIUM 140 mmol/L (136-145)
[2019-10-13] VITALS (25 sets, daily range): BP systolic 86–151; BP diastolic 41–88
[2019-10-13] MEDS: EYE LUBRICANT OPTH OINT 3.5GM TUBE OP SCH ×4 (00:25→18:12)
[2019-10-13] MEDS: PROPOFOL IV EMULSION 10MG/ML 100 ML IV PRN ×2 (00:26→22:00)
--- NOTE | 2019-10-13 01:52 | NUR ---
Spoke to Dr. Max Lowry regarding pts VS and Lasix gtt. New order to hold Lasix gtt for night and he will discuss with Dr. Casas tomorrow AM, 10/12.
[2019-10-13] MEDS: FENTANYL 2000MCG/NS 250 250 ML IV PRN ×3 (05:04→18:02)
[2019-10-13] MEDS: SODIUM CHLORIDE 0.9% IV PRN (05:08)
[2019-10-13] MEDS: CISATRACURIUM BESYLATE IV PRN (05:08)
[2019-10-13] MEDS: MIDAZOLAM HCL 50 MG in SODIUM CHLORIDE 0.9% 100 ML 90 ML IV PRN ×5 (05:08→23:15)
[2019-10-13 05:17] LABS: BASOPHILS # (AUTO) 0.1 (0.0-0.1); BASOPHILS % 0.3 % (0.0-1.0); EOSINOPHILS # (AUTO) 0.1 (0.0-0.4); EOSINOPHILS % 0.3 % (0.0-6.0); HEMATOCRIT 29.7 % (38.2-49.6); HEMOGLOBIN 9.1 g/dL (14.0-18.0); LYMPHOCYTES # (AUTO) 0.7 (1.0-3.2); LYMPHOCYTES % 2.2 % (18.0-39.1); MEAN CORPUSCULAR HEMOGLOBIN 28.1 pg (28-32); MEAN CORPUSCULAR HGB CONC 30.6 g/dL (31-35); MEAN CORPUSCULAR VOLUME 91.7 fL (81-99); MONOCYTES # (AUTO) 2.3 (0.2-0.8); NEUTROPHILS % 87.2 % (38.7-80.0); PLATELET COUNT 169 x10e3/uL (140-360); RED BLOOD COUNT 3.24 x10e6/uL (4.3-5.7); RED CELL DISTRIBUTION WIDTH 15.3 % (11.7-14.4)
[2019-10-13] MEDS ORDERED: POTASSIUM CHLORIDE 20MEQ/100ML 100 ML IV ONE (06:00)
[2019-10-13 06:03] LABS: ALANINE AMINOTRANSFERASE 34 IU/L (0-55); ALKALINE PHOSPHATASE 217 IU/L (40-150); ANION GAP 13.7 mmol/L (8-16); BLOOD UREA NITROGEN 14 mg/dL (7-26); BUN/CREATININE RATIO 28 (6-25); CALCIUM 9.2 mg/dL (8.4-10.2); CARBON DIOXIDE 27 mmol/L (22-29); CHLORIDE 102 mmol/L (98-107); EST GLOMERULAR FILTRATION RATE > 60 ML/MIN (60-); GLUCOSE 104 mg/dL (74-118); POTASSIUM 3.7 mmol/L (3.5-5.1); SODIUM 139 mmol/L (136-145)
--- NOTE | 2019-10-13 07:09 | NUR ---
infectious disease progress note. This is late entry note for October 12, 2019. Patient seen and examined chart reviewed.this was discussed with medical team The patient is afebrile. The patient had difficulty in the supine position yesterday. He had to be placed back in the prone position in the evening. He is currently on Nimbex as well as Versed and fentanyl. He is also on a Lasix drip at 5 mg an hour. His T-max is 101.6. His current ventilator settings are rate of 32 with a PEEP of 8 and pressure above PEEP of 28. His FiO2 is set at 60%. PHYSICAL EXAMINATION: VITAL SIGNS: The blood pressure is 123/46 and the pulse is 110 to 120. His saturation now 100%. He has an oral endotracheal tube. HEENT: Shows no facial swelling or erythema. CARDIAC: Reveals regular rate and rhythm. Normal S1 and S2. LUNGS: Auscultation of the lungs shows crackles at the bases. There is no wheezing. ABDOMEN: Soft and nontender. There is no rebound or guarding. EXTREMITIES: Shows 2+ edema in the lower extremities. LABORATORY DATA: Hemoglobin is decreased to 6.6 today. The platelet count is 141 and the white blood cell count is 13.1. BUN to creatinine ratio is 14 to 0.43. The other electrolytes are within normal limits. Albumin is 3.3. The blood gases; 7.45, 42, 123 and 29. RADIOGRAPHIC DATA: Chest x-ray shows continued bilateral infiltrates. IMPRESSION: fever rule out pneumonia rule out sepsis We will get a blood culture was recheck CBC rechecking panel Please refer to the orders 1. Anemia secondary to chronic blood loss. 2. Acute respiratory failure. 3. Viral pneumonia and COVID-19 infection. 4. Persistent fevers. 5. Thrombocytopenia. 6. Anasarca.
--- NOTE | 2019-10-13 07:11 | NUR ---
infectious disease progress note October 13, 2019 Patient seen and examined and discussed with medical team Patient remains intensive care unit intubated Patient is intubated sedated vitals stable afebrile HEENT normocephalic neck supple chest crackles bilaterally heart S1-S2 abdomen soft Bowel sounds present his white cell is 33,000 today Concern about sepsis concerned about colitis could not sent for CT scan patient is too unstable Discussed with medical team will try to CT him once stable in the meantime we will treat him for presumptive C. difficile will start oral vancomycin IV Flagyl Recheck CBC to check Panel. Stools for C. difficile Check amylase lipase and liver enzyme respiratory failure failure covid 19 Sepsis Concerned superimposed infection See orders we will follow
[2019-10-13] MEDS: VANCOMYCIN 250MG/5ML ORAL SOLN PO SCH ×3 (07:27→18:12)
[2019-10-13] MEDS: METRONIDAZOLE 500MG/NS 100ML 100 ML IV SCH ×3 (07:27→18:27)
--- NOTE | 2019-10-13 07:57 | Progress Note ---
DATE: 10/11/2019 CONSULTANTS: Dr. Lowry with Pulmonology; Dr. Maguire with Infectious Disease; Dr. Casas with Cardiology and Dr. Roger with Renal. CHIEF COMPLAINT: Dyspnea. SUBJECTIVE: Intubated and sedated with still recurring fever. OBJECTIVE: VITAL SIGNS: Temperature 99.0, pulse 137, respirations 32, blood pressure 167/64, pulse ox is 81%. GENERAL: Sedated and intubated. HEENT: ET tube in place. LUNGS: Decreased breath sounds. CARDIOVASCULAR: Tachycardic, regular. ABDOMEN: Soft. : Ho in place. MUSCULOSKELETAL: Generalized edema. NEUROLOGIC: Sedated. SKIN: Dry. LABORATORY DATA: WBC 12.59, hemoglobin 7.9, platelets 176,000. Sodium 140, potassium 3.6, BUN 14, creatinine 0.44, phosphorus 1.7, AST 19, ALT 30, alkaline phosphate is 172, and BNP is 122. UA slightly cloudy with 2+ protein, negative for leukocyte esterase with few epithelial cells and other bacteria. IMAGING: Chest x-ray stable lines and tubes, no interval changes and multifocal patchy interstitial airspace opacity throughout the lungs. ASSESSMENT AND PLAN: 1. Acute respiratory failure due to COVID-19 pneumonia. Completed meropenem today. Vent management per Pulmonology. Chest x-ray with no significant change. Still with recurrent fever. Plan is for tracheostomy next week. 2. Anemia, stable. We will continue to monitor hemoglobin, today is 7.9. 3. Morbid obesity. 4. Tachycardia. Continue on beta blockers. 5. Thrombocytopenia. Lovenox is held, but now improved. We will resume on Lovenox per Hematology. 6. GI and DVT prophylaxis. Continue Lovenox and PPI. Dictated by SNEHAL Laguerre Taylor Aparicio MD [facility] /[id number] Seen and examined on 09/10/19. Agree with the findings and plan as documented by SNEHAL Haywood. MTDD
[2019-10-13] MEDS: SUCRALFATE 1 GM/10 ML SUSP NG SCH ×3 (08:26→18:12)
[2019-10-13] MEDS: FAMOTIDINE 20 MG/2 ML VIAL IV SCH ×2 (08:27→22:00)
[2019-10-13] MEDS: CYANOCOBALAMIN INJ 1,000 MCG/ML VIAL IM SCH (08:27)
[2019-10-13] MEDS: BALSAM PERU/CASTOR OIL 60 GM OINT...G. TP SCH (08:27)
[2019-10-13] MEDS: ACETAZOLAMIDE 250 MG TAB NG SCH ×2 (08:27→21:41)
[2019-10-13] MEDS: METOPROLOL TARTRATE 25 MG TAB PO SCH ×2 (08:27→21:41)
[2019-10-13] MEDS: POTASSIUM CHLORIDE 20MEQ/15ML UDC NG SCH ×3 (08:32→22:00)
--- NOTE | 2019-10-13 08:32 | Progress Note ---
DATE: SUBJECTIVE: The patient has had some low-grade fevers last night to 100.2. His white blood cell count this morning is 33. The patient was in the supine position yesterday. He did not tolerate it well and had to be placed back in the prone position. During the night, he also had more tachycardiac and his Lasix drip was held. The patient is currently on a pressure control mode of ventilation. His PEEP is set at 8 and his pressure above PEEP is 26. His FiO2 is 55%. His rate is 32. With those settings, his saturation is 99% and his tidal volumes are in the 380 range. PHYSICAL EXAMINATION: VITAL SIGNS: Blood pressure is 94/50, pulse is 101 to 105, saturation is 99% on the above noted settings. HEENT: He has an oral endotracheal tube. He has a left IJ line. The site looks clean. He has a new PICC line in place. He has an arterial line. CARDIAC: Reveals tachycardia with normal S1 and S2. LUNGS: Auscultation of lungs reveals crackles at the bases. There is no wheezing. ABDOMEN: Soft. Mildly distended, but is nontender. There is some leg edema. LABORATORY DATA: White blood cell count is 33.2, hemoglobin 9.1, and platelet count is 169. The BUN to creatinine ratio is 14 to 0.5. The other electrolytes are within normal limits. The albumin is 3.0. RADIOGRAPHIC DATA: Chest x-ray shows bilateral infiltrates with no significant change. IMPRESSION: 1. Acute respiratory failure. 2. Fever and leukocytosis of unclear etiology. 3. Viral pneumonia and coronavirus disease 2019 infection. 4. Anemia secondary to chronic blood loss. 5. Thrombocytopenia. 6. Anasarca. 7. Intestinal ileus. PLAN: 1. The patient will be placed back in supine position. 2. Lasix drip is on hold because of borderline blood pressures. He will receive additional albumin today. 3. The patient is scheduled for CT scan of the abdomen and pelvis as well as the chest. 4. Continue Versed and fentanyl along with Nimbex. 5. Await fungal cultures and other blood cultures. 6. Continue Lovenox. 7. Case discussed with mother, night time nanny nursing, dayshift nursing, General Surgery, Infectious Disease, and Respiratory. Greater than 35 minutes in direct critical care time. MD SAMINA Angel/ANGELA /[id number]
[2019-10-13] MEDS: ALBUMIN 25% 25GM 100ML 100 ML IV SCH ×3 (08:33→21:30)
[2019-10-13 09:27] LABS: ABG HCO3 29 mmol/L (22-26); ABG PCO2 55 mmHg (35-45); ABG PH 7.33 (7.35-7.45); ABG PO2 111 mmHg (80-105); ABG TCO2 31
[2019-10-13] MEDS: NOREPINEPHRINE 8 MG/D5W 250 ML 250 ML IV SCH (10:24)
[2019-10-13] MEDS: ENOXAPARIN SOD INJ 40 MG/0.4 ML SYR SC SCH ×2 (10:24→22:00)
[2019-10-13] MEDS ORDERED: CISATRACURIUM BESYLATE 200 MG in SODIUM CHLORIDE 0.9% 250ML 180 ML IV PRN (10:45)
[2019-10-13] MEDS: CISATRACURIUM BESYLATE 200 MG in SODIUM CHLORIDE 0.9% 250ML 180 ML IV PRN (11:19)
[2019-10-13] MEDS: FUROSEMIDE INJ 100 MG in SODIUM CHLORIDE 0.9% 100 ML 90 ML IV SCH ×2 (11:20→18:02)
[2019-10-13] MEDS ORDERED: ALBUMIN 25% 25GM 100ML 0.25 GM/ML BTL IV SCH (12:00)
[2019-10-13] MEDS: CEFEPIME 1GM/NS 0.9% 50 ML 50 ML IV SCH ×2 (13:09→22:30)
[2019-10-13] MEDS ORDERED: FENTANYL 2,000 MCG/250 ML BAG ONE (14:08)
[2019-10-13] MEDS ORDERED: MIDAZOLAM HCL 5MG/ML 10ML VIAL 100 ML BAG IV ONE (14:08)
[2019-10-13] MEDS ORDERED: PROPOFOL IV EMULSION 10MG/ML 100ML BTL ONE (14:08)
[2019-10-13 15:30] LABS: BASOPHILS # (AUTO) 0.1 (0.0-0.1); BASOPHILS % 0.4 % (0.0-1.0); HEMATOCRIT 28.2 % (38.2-49.6); HEMOGLOBIN 8.7 g/dL (14.0-18.0); LYMPHOCYTES % 3.6 % (18.0-39.1); MEAN CORPUSCULAR HEMOGLOBIN 28.4 pg (28-32); MEAN CORPUSCULAR HGB CONC 30.9 g/dL (31-35); MEAN CORPUSCULAR VOLUME 92.2 fL (81-99); MONOCYTES # (AUTO) 1.7 (0.2-0.8); NEUTROPHILS # (AUTO) 24.4 (2.1-6.9); NEUTROPHILS % 85.8 % (38.7-80.0); PLATELET COUNT 108 x10e3/uL (140-360); RED BLOOD COUNT 3.06 x10e6/uL (4.3-5.7); RED CELL DISTRIBUTION WIDTH 15.4 % (11.7-14.4)
[2019-10-13 16:18] LABS: ALANINE AMINOTRANSFERASE 30 IU/L (0-55); ALBUMIN 3.2 g/dL (3.5-5.0); ALKALINE PHOSPHATASE 194 IU/L (40-150); BLOOD UREA NITROGEN 20 mg/dL (7-26); BUN/CREATININE RATIO 35 (6-25); CALCIUM 9.2 mg/dL (8.4-10.2); CHLORIDE 103 mmol/L (98-107); CREATININE, SERUM 0.57 mg/dL (0.72-1.25); EST GLOMERULAR FILTRATION RATE > 60 ML/MIN (60-); GLUCOSE 135 mg/dL (74-118); MAGNESIUM 1.8 MG/DL (1.3-2.1); POTASSIUM 4.1 mmol/L (3.5-5.1); SODIUM 139 mmol/L (136-145)
[2019-10-13 16:27] LABS: BAND NEUTROPHILS % (MANUAL) 12 %; LYMPHOCYTES % (MANUAL) 2 % (19-48); METAMYELOCYTES % (MANUAL) 3 % (0-0); MONOCYTES % (MANUAL) 6 % (3.4-9.0); MYELOCYTES % (MANUAL) 1 % (0-0); NEUTROPHILS % (MANUAL) 76 % (40-74); PLATELET ESTIMATE ADEQUATE; PLATELET MORPHOLOGY COMMENT FEW LARGE; RBC MORPHOLOGY COMMENT NORMAL; SMUDGE CELLS FEW
[2019-10-13 16:35] LABS: ANION GAP 15.1 mmol/L (8-16); CARBON DIOXIDE 25 mmol/L (22-29)
[2019-10-13 16:47] LABS: PHOSPHORUS 3.3 MG/DL (2.3-4.7)
[2019-10-13 17:25] LABS: ABG HCO3 28 mmol/L (22-26); ABG PCO2 58 mmHg (35-45); ABG PH 7.29 (7.35-7.45); ABG PO2 62 mmHg (80-105)
[2019-10-13 17:26] LABS: ABG TCO2 30
--- NOTE | 2019-10-13 17:30 | Diagnostic Imaging Report ---
EXAMINATION: CHEST SINGLE (PORTABLE) COMPARISON: Chest x-ray 10/12/2019 INDICATION: ^resp failure ^[id number] ^1555 DISCUSSION: Frontal view of the chest obtained at 1555 hours. HEART AND MEDIASTINUM: The cardiomediastinal silhouette is obscured due to widespread airspace opacities LINES: Endotracheal tube terminates 3 to 4 cm above the fred. Left IJ central venous catheter terminates in the SVC. Right PICC line terminates in the SVC. Enteric tube extends past the diaphragm. LUNGS/PLEURA: Widespread alveolar airspace opacities are redemonstrated, left lung more severe than the right. The left lung has worsened in severity. Small bilateral pleural effusions. No pneumothorax. BONES AND SOFT TISSUES: No focal osseous lesion. The soft tissues are normal. IMPRESSION: 1. Support devices as described above. 2. Worsening infiltrates in the left lung. Similar infiltrates in the right lung. Signed by: Dr. Lali Hampton MD on 10/13/2019 5:26 PM
[2019-10-13] MEDS ORDERED: MANNITOL 25% 12.5GM/50 ML VIAL IV SCH (18:00)
[2019-10-13] MEDS: MANNITOL 25% 12.5GM/50ML 50 ML IV SCH (18:03)
--- NOTE | 2019-10-13 18:29 | NUR ---
Nutrition Intervention Note RD Recommendation(s) for Physician: - Continue TF of Vital AF 1.2. Recommend advancing to goal rate of 60 ml/hr as GI status and hemodynamic stability allows (to provide 1728 kcal and 108 gm protein). - Water flushes per MD. - If unable to advance TF to goal rate within 48 hrs, recommend initiating standard TPN at 42 ml/hr (Dextrose 30%/500 ml, AA10%/500 ml), standard lytes, add MVI, trace, thiamine. (716 kcal, 50 gm protein). Continue TF as tolerated. Addition of TPN to better meet nutritional needs. - Propofol providing an additional 446 lipid kcal. Plan of Care: RD following, TF rec's, TPN rec's, monitor adequacy and tolerance Nutrition reason for involvement: follow up RD Assessment 10/12: Follow up. Pt remains intubated and sedated with Propofol and Versed. Pt paralyzed with Nimbex. Pt now on Levophed, currently at 10 mcg/min. Pt on trickle TF currently, pt with ileus per MD notes. Spoke with Dr. Lowry over the phone, RD recommended considering TPN as pt continues to not meet needs with TF and currently with an ileus. MD stated that he would prefer to utilize the gut for now and will re-evaluate. RD requested Phos and Mg be drawn in case TPN required tomorrow to evaluate for replacements and initiation. Noted afternoon Phos and Mg WNL. Chart reviewed, plan for trach placement. TPN and TF rec's provided. Will continue to monitor. 10/09: Follow up. Chart reviewed. MD note indicates pt is in the supine position. Per documentation, pt is receiving TF at 30mL/hr not meeting kcal or protein needs. Current recommendations remain appropriate recommend increasing rate to 60 mL/hr. Will continue to monitor. 10/05: Follow up. Chart reviewed. Pt remains intubated and was in the supine position overnight. Pt is no receiving propofol at this time. Pts tube feed is at 20 mL/hr per chart not meeting kcal or protein needs. Tube feed recommendations provided. Will continue to monitor. 10/01: Follow up. Pt remains intubated, sedated on Propofol, and paralyzed. Pt requiring to be proned. TF rate decreased to 20 ml/hr currently- not meeting kcal or protein needs. TF rec's provided. Chart reviewed. Will continue to monitor. 09/29: Follow up. Pt remains intubated, sedated on high dose Propofol, and paralyzed. Pt requiring to be in intermittent prone positioning. TF infusing at 35 ml/hr, not meeting protein needs. TF rec's provided. Chart reviewed. Will continue to monitor. 09/25: Follow up. Chart reviewed. Pt remains intubated and sedated. Pt is receiving propofol at 7.8 mL/hr which provides 205 lipid kcal. TF is infusing at 20 mL/hr. Recommend modifying tube feed formula to Vital High Protein at this time. Will continue to monitor. 09/22: Follow up. Pt remains intubated, sedated, and paralyzed. Pt requiring proning. TF infusing at 10 ml/hr and TPN weaned to 20 ml/hr. Chart reviewed. TF and TPN rec's provided pending ability to advance TF. Will continue to monitor. 09/18: Follow up. Chart reviewed. Pt remains intubated and sedated. Pt was started on tube feeding. Last recorded rate was 20 mL/hr this afternoon. Pt continues to receive TPN @ 42 mL/hr. Propofol rate is at 13.4 mL/hr (provides 354 kcal). Recommendations provided. Will continue to monitor 09/15: Follow up. Pt remains intubated, sedated on Propofol at 19.6 ml/hr, and paralyzed. Pt continues on TPN at 42 ml/hr, not meeting needs. Pt continues with persistent ileus and is receiving enemas and suppositories. Pt requiring daily proning 2/2 respiratory status. TF order remains, recommend NPO for now. TPN goal rec's provided, continues at 42 ml/hr. Chart reviewed. Will continue to monitor. 09/11: Follow up. Chart reviewed. Pt remains intubated and sedated. Pt is receiving 30 mL/hr of propofol per documentation which provides 792 lipid kcal. Tube feeding has been held due to abdominal distention and pt was started on TPN @ 42 mL/hr today. MD note indicates pt has an ileus. Recommendations provided. Will continue to monitor. 09/07: Follow up. Chart reviewed. Pt remains intubated and sedated. Pt is receiving 23.6 mL/hr of propofol per documentation which provides 623 lipid kcal. TF was at 20 mL/hr last night per chart. Per MD note, pts abdomen is distended and has not had a BM. Will continue to monitor. 09/04: Follow up. Pt remains intubated and sedated. Pt is receiving 9 mL/hr of propofol per documentation, which provides 238 lipid kcal. TF was at 20 mL/hr per chart yesterday. No additional administration rate is available. Will continue to monitor. 09/02: Follow up. Pt remains intubated, paralyzed, and sedated on Propofol and Versed. Pt requiring proning. TF rate at 10 ml/hr per TF documentation yesterday- inadequate EN currently, no additional EN administration available per chart. Recommend continuing EN while pt is proned by placing them in reverse Trendelenburg position. If unable to advance TF to goal rate, recommend considering PN. Chart reviewed. Will continue to monitor. 08/29: Initial encounter with patient. Pt is sedated and orally intubated. Pt was not able to provide a nutrition Hx at the time of visit. Unable to observe oral cavity or perform a nutrition focused physical exam. Jevity 1.2 infusing at 20ml hr with a goal of 50ml/hr. Propofol provides 1.1kcal/ml EN provides 576 kcals, 26.64g of protein, and 387.36ml of free H2O Principal Problems/Diagnoses: CoVID 19 pneumonia PMH: No significant medical Hx, overweight/obesity GI: LBM 10/10- 50 ml stool output Skin: stage 2 right ear pressure ulcer, penis ischemic edema, bilateral knees- ischemic edema , scrotal abrasion Labs: 10/12: Na 139, K 4.1, BUN 20, Cr 0.57, Cl 103, CO2 25, Gluc 135, Phos 3.3, Mg 1.8 10/09: Na 140, K 3.4, BUN 15, Cr 0.44, Glu 103 10/05: Na 139, K 3.3, BUN 15, Cr 0.42, Glu 113, Ca 8.2 10/01: Na 139, K 4, BUN 12, Cr 0.59, Gluc 141, POC Gluc 127-175 09/29: Na 138, K 2.9, BUN 5, Cr 0.39, Gluc 87, POC 107-116 09/25: Na 142, K 3.7, BUN 11, Cr 0.49, Ca 7.8, Glu 107 7/28: Na 145, K 3.3, Cl 93, CO2 38, BUN 5, Cr 0.5, Gluc 129, POC 97-130 09/18: Na 146, K 3.6, Cr 0.50, BUN 13, Glu 100, Ca 7.7, Total Bili 1.6, AST 43 09/15: Na 148, K 3.8, Cl 102, CO2 38, BUN 15, Cr 0.57, Gluc 111 09/11: Na 148, BUN 18, Cr 0.51, Glu 120, Ca 8.0 09/07: Na 144, K 3.8, BUN 13, Cr 0.52, Glu 92, Ca 7.8 09/04: Na 141, K 4.0, BUN 21, Cr 0.63, Glu 122 09/02: Na 139, K 4.2, BUN 19, Cr 0.61, Gluc 101 Meds: vitamin B12, abx, carafate IVF/Drips: Propofol at 16. 9 ml/hr (446 lipid kcal/day), Nimbex drip, Versed drip, Fentanyl drip, IV albumin, IV mannitol Ht: 67 in. Wt: 206 lbs (10/12) 212 lbs (10/09) 236 lbs (10/05) 251 lbs (09/28) 253.5 lbs (09/25) 254.31 lb (09/22) 258 lbs (09/18) 254 lb (09/15)- questionable wt gain, 218 lbs (09/11/19) 219 lbs (08/28) 220 lbs (09/04) 215.31lb (09/02), 200.44lbs (08/29) BMI: 31.4kg/m2 (weight used- 200 lbs) IBW: 148 lbs Malnutrition Evaluation (10/13/2019) Pt currently meets criteria for mild protein calorie malnutrition. Intake adequacy: Moderate- TF not meeting needs, Propofol providing additional kcal Wt loss: None- no wt loss per current wt, pt with wt fluctuations since admit related to fluid Fat loss: JACOB per current isolation protocol- unable to complete NFPE, BMI indicative of adequate fat stores Muscle loss: JACOB per current isolation protocol- unable to complete NFPE Edema: Mild- edema to lower extremities per MD notes Functional status: JACOB due to intubation Nutrition Prescription (Diet Order): Vital AF at 20 ml/hr - infusing at 10 mL/hr (288 kcal and 18 gm protein) currently 2/2 ileus, previously infusing at 30 ml/hr. Propofol providing an additional 446 kcal. Estimated Nutritional Needs: 6440-9354 calories/day (22-25 kcal/kg IBW) 101-135 g protein/day (1.5-2 g pro/kg IBW) Diet Adequacy: not meeting calorie needs, Not meeting protein needs Diet Education Needs Assessment: Diet education not indicated. Nutrition Care Level: high- not meeting needs Nutrition Diagnosis: Inadequate energy and protein intake related to intubation as evidenced by pt requiring alternative means of nutrition. Goal: Patient will meet 75-100% of estimated needs by follow up Progress: goal not met Interventions: Composition, Rate, Route, Recommended modifications, Collaborations with other providers Monitoring/Evaluation: Total energy intake, Total protein intake, Formula/Solution, Prescription medication, Weight change Signed: Mary Rodney RD, LD, CNSC
--- NOTE | 2019-10-13 20:20 | Progress Note ---
DATE: 10/13/2019 SUBJECTIVE: The patient remains intubated and sedated in prone position. Unable to obtain any information. OBJECTIVE: VITAL SIGNS: Temperature 98.8, pulse is 110, respirations 34, blood pressure 125/56, pulse ox is 94% on the vent. GENERAL: Sedated and intubated. LUNGS: With decreased breath sounds. CARDIOVASCULAR: Tachycardia. S1 and S2 heard. ABDOMEN: Soft, obese. : Ho in place. MUSCULOSKELETAL: Generalized pitting edema. NEUROLOGIC: Sedated. SKIN: Dry. LABORATORY DATA: WBC 28.4, hemoglobin 8.7, hematocrit 28.2, and platelets 108. Sodium 139, potassium 4.1, creatinine 0.57, estimated GFR greater than 60, blood glucose 135, calcium of 9.2, phosphorus 3.3, magnesium 1.8, AST 14, ALT 30. Sputum culture shows Gram-negative bacillus, pending sensitivity. Chest x-ray, worsening infiltrates in the left lung, similar infiltrates in the right lung. ASSESSMENT AND PLAN: 1. Acute respiratory failure due to coronavirus disease 2019 pneumonia. Remains intubated and management per iuss master analyst. Chest x-ray with worsening infiltrates. Meropenem changed to Flagyl and cefepime per ID. 2. Leukocytosis. WBC 33 this morning and this afternoon 28. Sputum culture positive for gram-negative rods. Vancomycin p.o. started for possible Clostridium difficile. We will continue to monitor closely. 3. Egtzi-qi-dnidgyq anemia, status post 2 units of PRBCs. Hemoglobin 8.1. We will continue to monitor. 4. Thrombocytopenia. Platelets 108 today. Nozzle Worker on the case. 5. Anasarca. Continue Lasix drip. Further recommendations per Renal. 6. Deep vein thrombosis prophylaxis. Resume Lovenox 40 mg subcu b.i.d. Dictated by SNEHAL Laguerre Taylor Aparicio MD MY/MODL /[id number]
[2019-10-13] MEDS ORDERED: MAGNESIUM SULFATE 2GM/50ML 50 ML IV ONE (21:45)
--- NOTE | 2019-10-13 22:01 | Progress Note ---
DATE: 10/13/2019 Nephrology Progress Note SUBJECTIVE: The patient's urine output dropped overnight. IV Lasix infusion was held for sometime, now resumed. Given a dose of IV mannitol. OBJECTIVE: VITAL SIGNS: Remains connected to respirator. Blood pressure 150/59. NECK: Without JVP. RESPIRATORY: Bilateral symmetrical air entry. CARDIOVASCULAR: Regular rate and rhythm. EXTREMITIES: 1 to 2+ pitting edema. LABORATORY DATA: Potassium is normal, BUN 20, creatinine 0.57, bicarb 25, sodium 139. Calcium 9.2. Magnesium 1.8. IMPRESSION: 1. Hypokalemia, corrected. Continue 30 mEq t.i.d. through feeding tube. 2. Fluid overload, continue IV Lasix as needed per ICU team. Watch potassium and magnesium while on loop diuretic. 3. Renal function remains preserved so far. Continue to monitor. Marcos Marsh MD [facility]/MODL /[id number]
--- NOTE | 2019-10-13 23:31 | Progress Note ---
DATE: 10/13/2019 Cardiology Progress Note SUBJECTIVE: The patient is sedated and intubated, weaning off vent as tolerated; Undergoing intermittent proning. OBJECTIVE: VITAL SIGNS: His blood pressure is 116/53 by art-line measurement, heart rate is 120 beats per minute, temperature is 98.8. GENERAL: Intubated and sedated. CHEST: Clear to auscultation anteriorly. CARDIOVASCULAR: Regular rate and rhythm, tachycardia, normal S1 and S2. No murmurs heard. ABDOMEN: Soft, obese. EXTREMITIES: edematous CARDIOVASCULAR MEDICATIONS: Low dose metoprolol tartrate and IV metoprolol prn. The Lasix drip is on hold because of tachycardia and low blood pressure. LABORATORY DATA: Shows a white count of 28.4 thousand, hemoglobin is 8.7, hematocrit is 28.2, and platelet count is 108,000. The sodium is 139, potassium is 4.1, chloride is 103, bicarb is 25, BUN is 20, creatinine is 0.57, glucose is 137. AST and ALT are within normal reference range. ASSESSMENT AND PLAN: 1. Thrombocytopenia followed by Heme/Onc. DIC panel ordered; no acute bleeding reported. 2. Anemia: monitor H/H 3. Acute hypoxemic respiratory failure. 4. Covid19 with associated pneumonia, leukocytosis: CXR: multifocal patchy interstitial and airspace opacities both lung quevedo. Followed by pulmonary and ID. 5. Volume overload: followed by nephrology. 6. Persistent sinus tachycardia. 7. Yjmoe-xt-iafyyed diastolic heart failure. BNP in AM. Lalitha Singh MD [facility]/MODL /[id number]
[2019-10-14] VITALS (26 sets, daily range): BP systolic 93–159; BP diastolic 40–76
[2019-10-14] MEDS: CISATRACURIUM BESYLATE 200 MG in SODIUM CHLORIDE 0.9% 250ML 180 ML IV PRN (00:31)
[2019-10-14] MEDS: SUCRALFATE 1 GM/10 ML SUSP NG SCH ×4 (01:00→17:19)
[2019-10-14] MEDS: EYE LUBRICANT OPTH OINT 3.5GM TUBE OP SCH ×4 (01:00→17:19)
[2019-10-14] MEDS: MANNITOL 25% 12.5GM/50ML 50 ML IV SCH (01:11)
[2019-10-14] MEDS: FENTANYL 2000MCG/NS 250 250 ML IV PRN ×2 (01:20→08:04)
[2019-10-14] MEDS ORDERED: SODIUM CHLORIDE 0.9% 50ML 50 ML ONE (01:43)
[2019-10-14] MEDS: VANCOMYCIN 250MG/5ML ORAL SOLN PO SCH ×4 (02:00→17:19)
[2019-10-14] MEDS: METRONIDAZOLE 500MG/NS 100ML 100 ML IV SCH ×4 (02:00→17:19)
[2019-10-14] MEDS: FUROSEMIDE INJ 100 MG in SODIUM CHLORIDE 0.9% 100 ML 90 ML IV SCH ×2 (03:42→16:20)
[2019-10-14] MEDS: MIDAZOLAM HCL 50 MG in SODIUM CHLORIDE 0.9% 100 ML 90 ML IV PRN ×2 (04:32→08:02)
[2019-10-14 04:58] LABS: BASOPHILS # (AUTO) 0.1 (0.0-0.1); BASOPHILS % 0.3 % (0.0-1.0); EOSINOPHILS % 0.1 % (0.0-6.0); HEMATOCRIT 23.8 % (38.2-49.6); HEMOGLOBIN 7.5 g/dL (14.0-18.0); LYMPHOCYTES # (AUTO) 0.6 (1.0-3.2); LYMPHOCYTES % 4.3 % (18.0-39.1); MEAN CORPUSCULAR HEMOGLOBIN 29.3 pg (28-32); MEAN CORPUSCULAR HGB CONC 31.5 g/dL (31-35); MONOCYTES # (AUTO) 0.9 (0.2-0.8); MONOCYTES % 6.1 % (4.4-11.3); NEUTROPHILS # (AUTO) 11.6 (2.1-6.9); NEUTROPHILS % 80.1 % (38.7-80.0); RED BLOOD COUNT 2.56 x10e6/uL (4.3-5.7); RED CELL DISTRIBUTION WIDTH 15.5 % (11.7-14.4)
[2019-10-14 05:03] LABS: PLATELET COUNT 43 x10e3/uL (140-360)
[2019-10-14] MEDS: CEFEPIME 1GM/NS 0.9% 50 ML 50 ML IV SCH ×3 (05:16→22:20)
[2019-10-14 05:21] LABS: ALANINE AMINOTRANSFERASE 22 IU/L (0-55); ALBUMIN 3.2 g/dL (3.5-5.0); ALBUMIN/GLOBULIN RATIO 1.1 (0.8-2.0); ALKALINE PHOSPHATASE 149 IU/L (40-150); ANION GAP 15.5 mmol/L (8-16); BLOOD UREA NITROGEN 24 mg/dL (7-26); BUN/CREATININE RATIO 41 (6-25); CALCIUM 9.2 mg/dL (8.4-10.2); CARBON DIOXIDE 26 mmol/L (22-29); CHLORIDE 103 mmol/L (98-107); CREATININE, SERUM 0.59 mg/dL (0.72-1.25); EST GLOMERULAR FILTRATION RATE > 60 ML/MIN (60-); GLUCOSE 107 mg/dL (74-118); POTASSIUM 3.5 mmol/L (3.5-5.1); SODIUM 141 mmol/L (136-145)
--- NOTE | 2019-10-14 06:42 | NUR ---
Critical plt level read back to Dr. Martinez. New orders received to hold Lovenox.
--- NOTE | 2019-10-14 07:48 | NUR ---
HEMATOLOGY/ONCOLOGY PROGRESS NOTE: HPI: Patient remains intubated, in COVID ICU. Events noted. Platelet drop. No signs of bleeding per nursing staff. ROS: 14 point ROS unable to obtain secondary to patient intubated. PHYSICAL EXAM: Vitals: Reviewed as per EMR. Temp: 97.3 degF HR: 99 PE not performed due to COVID-19 contact precautions. LABORATORY/RADIOLOGY DATA: Reviewed per EMR. ASSESSMENT AND PLAN: Mr. Miles is a 42-year-old male with past medical history of hypertension who was admitted on 08/24/2019 due to cough and fever. Patient was found to be positive for COVID-19. Intubated due to worsening respiratory status. Patient has been treated with full-dose Lovenox since 09/08/19. Has required PRBC previously during admission. Patient now with dropping platelet count and recurrent anemia requiring PRBC transfusion. Hematology/Oncology has been consulted to assist with the management. 1. Thrombocytopenia: Likely secondary to consumption for infection. DIC panel showed no coagulopathy, elevated fibrinogen, does not appear DIC. Acute hepatitis panel negative. Abdominal US without evidence of liver cirrhosis or splenomegaly. HIT panel negative on 09/15/2019. Platelet drop to 43,000, hold all anticoagulation for now. Repeat DIC panel and follow up results. Repeat CBC this afternoon. No bleeding per nursing staff. Monitor closely. 2. Anemia: Anemia panel appears mixed picture AOCD + RODRIGUEZ with noted low B12 level. Macrocytosis probably combination of B12 deficiency and possibly also related to bone marrow suppression from viral infection. Ferritin mildly elevated, likely as acute phase reactant. Repeat ferritin significantly more elevated hold IV iron. Reticulocyte count and LDH mildly elevated, haptoglobin elevated, does not appear hemolysis. S/p multiple PRBC transfusions, last on 10/12/2019. Hemoglobin trending down. Monitor closely. Transfuse if hemoglobin < 7. 3. COVID-19 PNA: In the ICU, pharmacologically sedated and intubated with weaning off vent as tolerated. On TPN. Undergoing intermittent proning. Blood cultures final negative. Sputum culture with gram negative bacilli. Leukocytosis improving. Fungal cultures pending and CT abd/pelvis pending. CXR with no interval changes in multifocal patchy interstitial and airspace opacities throughout both lungs. Testing for Pneumocystis carinii requested per pulm. On IV antibiotics. Pulmonary and infectious disease on board. 4. Melena/ileus/abd distention: On Pepcid IV. Improved. On TFs with nutrition on board. 5. Fluid overload/oligoanuria: On diuresis, monitor UOP per Nephrology on board. 6. DVT proph: Hold all anticoagulation as per #1 for now. Recommend start SCDs. 7. GOC: Trach on hold per Pulmonary for now. Above plan discussed with Dr. Lona Martinez. Thank you for the consult. I will be available. Please call with questions.
[2019-10-14] MEDS: FAMOTIDINE 20 MG/2 ML VIAL IV SCH ×2 (08:01→22:00)
[2019-10-14] MEDS: CYANOCOBALAMIN INJ 1,000 MCG/ML VIAL IM SCH (08:01)
[2019-10-14] MEDS: ACETAZOLAMIDE 250 MG TAB NG SCH ×2 (08:01→22:00)
[2019-10-14] MEDS: METOPROLOL TARTRATE 25 MG TAB PO SCH (08:02)
[2019-10-14] MEDS: POTASSIUM CHLORIDE 20MEQ/15ML UDC NG SCH ×3 (08:02→22:04)
[2019-10-14] MEDS: BALSAM PERU/CASTOR OIL 60 GM OINT...G. TP SCH (08:02)
--- NOTE | 2019-10-14 08:37 | NUR ---
infectious disease progress note October 14, 2019 Patient seen and examined chart reviewed patient remains in intensive care unit care was discussed with the old medical team every day to review chart reviewed medication list reviewed he patient has had some low-grade fevers last night to 100.2. His white blood cell count this morning is 33. The patient was in the supine position yesterday. He did not tolerate it well and had to be placed back in the prone position. During the night, he also had more tachycardiac and his Lasix drip was held. The patient is currently on a pressure control mode of ventilation. His PEEP is set at 8 and his pressure above PEEP is 26. His FiO2 is 55%. His rate is 32. With those settings, his saturation is 99% and his tidal volumes are in the 380 range. PHYSICAL EXAMINATION: VITAL SIGNS: Blood pressure is 94/50, pulse is 101 to 105, saturation is 99% on the above noted settings. HEENT: He has an oral endotracheal tube. He has a left IJ line. The site looks clean. He has a new PICC line in place. He has an arterial line. CARDIAC: Reveals tachycardia with normal S1 and S2. LUNGS: Auscultation of lungs reveals crackles at the bases. There is no wheezing. ABDOMEN: Soft. Mildly distended, but is nontender. There is some leg edema. LABORATORY DATA: White blood cell count is 33.2, hemoglobin 9.1, and platelet count is 169. The BUN to creatinine ratio is 14 to 0.5. The other electrolytes are within normal limits. The albumin is 3.0. RADIOGRAPHIC DATA: Chest x-ray shows bilateral infiltrates with no significant change. IMPRESSION: 1. Acute respiratory failure. 2. Fever and leukocytosis of unclear etiology. 3. Viral pneumonia and coronavirus disease 2019 infection. 4. Anemia secondary to chronic blood loss. 5. Thrombocytopenia. 6. Anasarca. 7. Intestinal ileus. concern about aspiration continue with supportive care continue with the plan please refer to the orders
[2019-10-14 08:42] LABS: INR 1.26; PROTHROMBIN TIME 16.5 seconds (11.9-14.5)
[2019-10-14 09:16] LABS: BASOPHILS % 0.1 % (0.0-1.0); EOSINOPHILS # (AUTO) 0.1 (0.0-0.4); EOSINOPHILS % 0.4 % (0.0-6.0); HEMATOCRIT 25.5 % (38.2-49.6); HEMOGLOBIN 7.9 g/dL (14.0-18.0); LYMPHOCYTES # (AUTO) 0.7 (1.0-3.2); LYMPHOCYTES % 4.5 % (18.0-39.1); MEAN CORPUSCULAR HEMOGLOBIN 28.2 pg (28-32); MEAN CORPUSCULAR VOLUME 91.1 fL (81-99); MONOCYTES # (AUTO) 0.7 (0.2-0.8); MONOCYTES % 4.8 % (4.4-11.3); NEUTROPHILS # (AUTO) 12.3 (2.1-6.9); NEUTROPHILS % 86.1 % (38.7-80.0); RED CELL DISTRIBUTION WIDTH 15.4 % (11.7-14.4)
[2019-10-14 09:35] LABS: PLATELET COUNT 44 x10e3/uL (140-360)
--- NOTE | 2019-10-14 09:52 | Progress Note ---
DATE: Pulmonary Critical Care Progress Note SUBJECTIVE: He was started on cefepime yesterday and his white blood cell count is improved to 14.5. He has a decrease in his hemoglobin 7.5 and a decrease in platelet count of 43. He has been on a Lasix drip overnight. He also remains on Versed, Nimbex, and fentanyl. He is currently on a PRVC mode of ventilation at a rate of 34 with a PEEP of 8 and pressure above PEEP of 28. FiO2 is at 45%. PHYSICAL EXAMINATION: VITAL SIGNS: The patient is afebrile. The blood pressure is 119/63 and the pulse is 100. His saturation is 98% on the above settings. HEENT: Shows no facial swelling or erythema. He has an oral endotracheal tube. HEENT: Shows no facial swelling or erythema. CARDIAC: Reveals a regular rate and rhythm with normal S1 and S2. LUNGS: Auscultation of lungs reveals rhonchorous breath sounds bilaterally. There is no wheezing. ABDOMEN: Soft and nontender. There is no rebound or guarding. EXTREMITIES: Shows 1 to 2+ leg edema. LABORATORY DATA: BUN to creatinine ratio is normal. The potassium is 3.5 and the other electrolytes are within normal limits. The albumin is 3.2. The white blood cell count is 14.5 and the hemoglobin is 7.5. The platelet count is 43. ABGs; 7.39, pCO2 is 44, and the O2 is 88. HCO3 is 27. IMPRESSION: 1. Acute respiratory failure. 2. Viral pneumonia and COVID-19 infection. 3. Bacterial pneumonia with gram-negative rods. 4. Anemia secondary to chronic blood loss. 5. Thrombocytopenia. 6. Anasarca. PLAN: 1. The patient will be placed back in the supine position. 2. Stat KUB and chest x-ray after placing the patient in the supine position to check tube placements. 3. Repeat CBC and check BMP. 4. Sequential venous compression devices. 5. Continue cefepime. 6. Continue Versed, fentanyl, and Nimbex. 7. We discussed tracheostomy with General Surgery. Greater than 35 minutes in direct critical care time. Maximilian Lowry MD [facility]/MODL /[id number]
[2019-10-14] MEDS: NOREPINEPHRINE 8 MG/D5W 250 ML 250 ML IV SCH (10:15)
[2019-10-14 10:42] LABS: BAND NEUTROPHILS % (MANUAL) 2 %; EOSINOPHILS % (MANUAL) 1 % (0-7); LYMPHOCYTES % (MANUAL) 3 % (19-48); METAMYELOCYTES % (MANUAL) 1 % (0-0); MONOCYTES % (MANUAL) 9 % (3.4-9.0); NEUTROPHILS % (MANUAL) 84 % (40-74)
[2019-10-14 10:43] LABS: PLATELET ESTIMATE MODERATELY DECREASED; PLATELET MORPHOLOGY COMMENT NORMAL
[2019-10-14 10:45] LABS: HYPOCHROMASIA SLIGHT; RBC MORPHOLOGY COMMENT NORMAL
[2019-10-14 11:26] LABS: ABG HCO3 27 mmol/L (22-26); ABG PCO2 44 mmHg (35-45); ABG PO2 88 mmHg (80-105); ABG TCO2 29
--- NOTE | 2019-10-14 11:53 | Diagnostic Imaging Report ---
EXAMINATION: CHEST SINGLE (PORTABLE) INDICATION: Respiratory failure COMPARISON: Chest radiograph 10/13/2019 FINDINGS: LINES/TUBES:Support lines and tubes unchanged. EKG leads overlie the chest. LUNGS:The lung volumes remain low. Unchanged diffuse bilateral left greater than right consolidative airspace opacities. PLEURA:No definite pleural effusion. No pneumothorax. MEDIASTINUM:Cardiomediastinal silhouette is difficult to evaluate given extensive consolidations which silhouette the left and right heart borders. BONES/SOFT TISSUES:No acute osseous injury. ABDOMEN:No free air under the diaphragm. IMPRESSION: Low lung volumes and unchanged diffuse bilateral left greater than right consolidative airspace opacities. Signed by: Farrah Pierson MD on 10/14/2019 11:50 AM
--- NOTE | 2019-10-14 12:13 | Diagnostic Imaging Report ---
Exam: KUB - 1 view Indication: Respiratory failure Comparison: KUB of 10/03/2019, chest radiograph of the same day Findings: NG tube with tip and side-port in the body of the stomach. Overall paucity of bowel gas. No free air. No acute osseous injury. Impression: NG tube with tip and side port in the stomach. Signed by: Farrah Pierson MD on 10/14/2019 12:10 PM
[2019-10-14] MEDS ORDERED: ALBUMIN 25% 25GM 100ML 0.25 GM/ML BTL IV ONE (17:00)
[2019-10-14] MEDS ORDERED: ALBUMIN 25% 12.5GM 50ML 100 ML IV ONE (18:00)
--- NOTE | 2019-10-14 19:05 | Progress Note ---
DATE: 10/14/2019 Nephrology followup note. SUBJECTIVE: The patient remains on respiratory support. Overall condition appears unchanged. Urine output in the last 24-36 hours has been sporadic, now back on IV Lasix infusion at 10 mg an hour. Intake 4400, output 2200 in the last 24 hours. OBJECTIVE: VITAL SIGNS: Blood pressure 119/63, pulse 100 per minute, and afebrile, saturation 98%. HEENT: No facial edema. Endotracheal tube in place. CARDIAC: Regular rate and rhythm with normal S1, S2. LUNGS: Bilateral symmetrical air entry without wheezing. ABDOMEN: Soft. No distention. EXTREMITIES: 1 to 2+ leg edema. LABORATORY DATA: BUN and creatinine remain normal, potassium 3.5. Hemoglobin 7.5, pH is 7.39, pCO2 of 44, PO2 of 88, bicarb 27. IMPRESSION AND PLAN: 1. Hypokalemia, corrected by way of regular doses to the feeding tube and p.r.n. IV. 2. Renal function remains preserved. 3. Fluid overload and bilateral infiltrates on chest x-ray. IV Lasix infusion per ICU team. We will continue to monitor. Marcos Marsh MD [facility]/MODL /[id number]
[2019-10-14] MEDS: MIDAZOLAM HCL 5MG/ML 10ML VIAL 100 ML IV PRN (20:43)
--- NOTE | 2019-10-14 21:41 | Progress Note ---
DATE: 10/14/2019 SUBJECTIVE: Remains intubated and sedated in prone position. No events overnight. OBJECTIVE: VITAL SIGNS: Temperature 98.1, pulse 134, respiration 34, blood pressure 159/76, pulse ox 91% on the vent. GENERAL: Sedated and intubated. LUNGS: With decreased breath sounds. CARDIOVASCULAR: Tachycardia, S1-S2. ABDOMEN: Soft. : Ho in place. MUSCULOSKELETAL: Generalized pitting edema. NEUROLOGIC: Sedated. SKIN: Dry with multiple pressure ulcers on the sacrum. LABORATORY DATA: WBC 14.31, hemoglobin 7.9, hematocrit 25.5, platelets 44. Sodium 141, potassium 3.5, BUN is 24, creatinine 0.59, total bilirubin 1.3, BNP 157. PT 16.5, INR 1.26, fibrinogen 608 , D-dimer 3.95. MICROBIOLOGY: The sputum culture gram-negative bacilli. IMAGING DATA: Chest x-ray low lung volume . Bilateral left greater than right consolidative airspace opacities. ASSESSMENT AND PLAN: 1. Acute respiratory failure due to coronavirus disease-2019 pneumonia. Remains sedated and intubated. Vent management per Pulmonology. Chest x-ray is noted. Continue on Flagyl and cefepime per Infectious Disease. WBC is improving. 2. Leukocytosis. WBC is down to 14. Sputum culture showed small gram-negative bacilli. Continue cefepime, vancomycin p.o. started for possible Clostridium difficile. We will continue to trend. 3. Acute on chronic anemia, status 5 units of PRBC transfusion. We will continue to monitor closely. 4. Thrombocytopenia. Platelet is down to 44. Lovenox has been discontinued. Per Diem Registered Nurse on the case. 5. Anasarca. Continue Lasix drip. Renal on case. 6. Deep vein thrombosis prophylaxis. Lovenox discontinued due to thrombocytopenia. Plan is for tracheostomy once medically stable. Dictated by SNEHAL Laguerre Taylor Aparicio MD [facility]/MODL /[id number]
[2019-10-14] MEDS: ASCORBIC ACID 500 MG TAB PO SCH (22:00)
[2019-10-15] VITALS (25 sets, daily range): BP systolic 99–165; BP diastolic 52–83
[2019-10-15] MEDS: VANCOMYCIN 250MG/5ML ORAL SOLN PO SCH ×5 (00:24→23:16)
[2019-10-15] MEDS: METOPROLOL TARTRATE 25 MG TAB PO SCH ×3 (00:24→20:35)
[2019-10-15] MEDS: METRONIDAZOLE 500MG/NS 100ML 100 ML IV SCH ×5 (00:24→23:15)
[2019-10-15] MEDS: EYE LUBRICANT OPTH OINT 3.5GM TUBE OP SCH ×5 (00:24→23:16)
[2019-10-15] MEDS: SUCRALFATE 1 GM/10 ML SUSP NG SCH ×5 (00:24→23:15)
--- NOTE | 2019-10-15 00:26 | Progress Note ---
DATE: 10/14/2019 Cardiology Progress Note SUBJECTIVE: The patient is sedated and intubated, weaning off vent as tolerated; Undergoing intermittent proning. OBJECTIVE: VITAL SIGNS: Show blood pressure of 125/60 by art line measurement, heart rate is 118 beats per minute, afebrile, oxygen saturation 98% on FiO2 40%. GENERAL: Sedated and intubated. CHEST: Clear to auscultation anteriorly. CARDIOVASCULAR: Regular rate and rhythm, tachycardia, normal S1 and S2. No murmurs heard. ABDOMEN: Soft, obese. EXTREMITIES: edematous. CARDIOVASCULAR MEDICATIONS: Lasix drip resumed; metoprolol tartrate 25 mg daily enteral, IV metoprolol prn. LABORATORY DATA: Shows a white blood cell count of 14K, hemoglobin is 7.9, hematocrit is 25, and platelet count is 43K, Sodium is 141, potassium 3.5, chloride is 103, bicarb is 26, BUN is 24, creatinine is 0.6, glucose is 107. AST and ALT are within normal range. ASSESSMENT AND PLAN: 1. Severe thrombocytopenia followed by Heme/Onc. DIC panel negative; no acute bleeding reported, Lovenox discontinued; SCD recommended. 2. Anemia: monitor H/H 3. Acute hypoxemic respiratory failure. 4. Covid19 with associated pneumonia, leukocytosis: CXR with no interval changes in multifocal patchy interstitial and airspace opacities throughout both lung [place]. Followed by pulmonary and ID. 5. Volume overload/oliguria: Receiving IV furosemide, followed by nephrology. 6. Persistent sinus tachycardia. 7. Jgrtn-en-ijokljv diastolic heart failure: BNP 167 Continue IV furosemide. Lalitha Singh MD [facility]/MODL /[id number]
[2019-10-15] MEDS: PROPOFOL IV EMULSION 10MG/ML 100 ML IV PRN ×3 (01:25→17:49)
[2019-10-15] MEDS: FUROSEMIDE INJ 100 MG in SODIUM CHLORIDE 0.9% 100 ML 90 ML IV SCH ×4 (01:25→21:15)
[2019-10-15] MEDS: MIDAZOLAM HCL 5MG/ML 10ML VIAL 100 ML IV PRN ×4 (02:21→23:55)
[2019-10-15 04:58] LABS: ABG PCO2 49 mmHg (35-45); ABG PH 7.38 (7.35-7.45); ABG PO2 87 mmHg (80-105)
[2019-10-15 04:59] LABS: ABG HCO3 29 mmol/L (22-26); ABG TCO2 30
[2019-10-15 05:20] LABS: BASOPHILS # (AUTO) 0.1 (0.0-0.1); BASOPHILS % 0.4 % (0.0-1.0); EOSINOPHILS # (AUTO) 0.4 (0.0-0.4); EOSINOPHILS % 2.9 % (0.0-6.0); HEMATOCRIT 25.7 % (38.2-49.6); HEMOGLOBIN 8.1 g/dL (14.0-18.0); LYMPHOCYTES # (AUTO) 0.7 (1.0-3.2); LYMPHOCYTES % 4.7 % (18.0-39.1); MEAN CORPUSCULAR HEMOGLOBIN 29.7 pg (28-32); MEAN CORPUSCULAR HGB CONC 31.5 g/dL (31-35); MEAN CORPUSCULAR VOLUME 94.1 fL (81-99); MONOCYTES # (AUTO) 0.7 (0.2-0.8); MONOCYTES % 4.3 % (4.4-11.3); NEUTROPHILS % 86.2 % (38.7-80.0); PLATELET COUNT 64 x10e3/uL (140-360); RED BLOOD COUNT 2.73 x10e6/uL (4.3-5.7); RED CELL DISTRIBUTION WIDTH 15.6 % (11.7-14.4)
[2019-10-15] MEDS: CEFEPIME 1GM/NS 0.9% 50 ML 50 ML IV SCH ×3 (05:23→21:14)
[2019-10-15 05:42] LABS: ALANINE AMINOTRANSFERASE 23 IU/L (0-55); ALBUMIN 3.1 g/dL (3.5-5.0); ALKALINE PHOSPHATASE 176 IU/L (40-150); ANION GAP 14.1 mmol/L (8-16); BLOOD UREA NITROGEN 21 mg/dL (7-26); BUN/CREATININE RATIO 40 (6-25); CALCIUM 8.7 mg/dL (8.4-10.2); CARBON DIOXIDE 27 mmol/L (22-29); CHLORIDE 105 mmol/L (98-107); CREATININE, SERUM 0.53 mg/dL (0.72-1.25); EST GLOMERULAR FILTRATION RATE > 60 ML/MIN (60-); GLUCOSE 108 mg/dL (74-118); POTASSIUM 3.1 mmol/L (3.5-5.1); SODIUM 143 mmol/L (136-145)
[2019-10-15] MEDS: CISATRACURIUM BESYLATE 200 MG in SODIUM CHLORIDE 0.9% 250ML 180 ML IV PRN ×2 (06:40→21:18)
[2019-10-15] MEDS: FENTANYL 2000MCG/NS 250 250 ML IV PRN ×4 (06:40→21:16)
[2019-10-15] MEDS ORDERED: POTASSIUM CHLORIDE 20MEQ/100ML 300 ML IV ONE (07:30)
[2019-10-15] MEDS: BALSAM PERU/CASTOR OIL 60 GM OINT...G. TP SCH (08:28)
[2019-10-15] MEDS: FAMOTIDINE 20 MG/2 ML VIAL IV SCH ×2 (08:28→20:35)
[2019-10-15] MEDS: POTASSIUM CHLORIDE 20MEQ/15ML UDC NG SCH ×4 (08:29→23:15)
[2019-10-15] MEDS: MULTIVITAMINS/MINERALS TAB PO SCH (08:46)
[2019-10-15] MEDS: CHOLECALCIFEROL 1,000 UNIT TAB PO SCH (08:47)
[2019-10-15] MEDS: ASCORBIC ACID 500 MG TAB PO SCH ×2 (08:47→20:35)
[2019-10-15] MEDS: ZINC SULFATE 220 MG CAP PO SCH (08:47)
[2019-10-15] MEDS: ACETAZOLAMIDE 250 MG TAB NG SCH ×2 (08:47→20:35)
[2019-10-15 09:37] LABS: PHOSPHORUS 2.4 MG/DL (2.3-4.7)
--- NOTE | 2019-10-15 10:03 | Progress Note ---
DATE: 10/15/2019 Cardiology Progress Note SUBJECTIVE: Mr. Miles has remained in the ventilator support for a prolonged period of time. He is in proper position. OBJECTIVE: VITAL SIGNS: Temperature 98.4, heart rate 117, blood pressure 158/72, respiratory rate 34, O2 saturation 98%. GENERAL: Intubated and sedated in prone position. NECK: Supple. CHEST: With rales and decreased breath sounds. CARDIOVASCULAR: Regular rate and rhythm. Normal S1, S2. ABDOMEN: Bowel sounds positive. EXTREMITIES: Normothermic. 1+ edema. CARDIOVASCULAR MEDICATIONS: Reviewed. On furosemide 10 mg/hour IV metoprolol tartrate q.6 hours, off pressors currently, potassium chloride repletion. LABORATORY DATA: Studies reviewed. Sodium 143, potassium 3.1, chloride 105, bicarbonate 27, BUN 21 and creatinine 0.53, and glucose 108. White blood cells 15, hemoglobin 8.1, platelets 64. PT 16.5, PTT 37.7, INR 1.6. AST 19, ALT 23, total bilirubin 1.2, alkaline phosphatase 176. ASSESSMENT AND PLAN: A 44-year-old man presents with acute respiratory failure in the setting of COVID-19 infection, community-acquired pneumonia, hypertension, morbid obesity, now with protein-calorie malnutrition, undergoing tube feeds. RECOMMENDATIONS: Continue current cardiovascular medications. Continue particularly with diuresis as the patient remains volume overloaded. Some improvement has been observed gradually in weaning of ventilator support. Continue progress per Pulmonary expertise. John Romero MD [facility]/MODL /[id number] MTDD
[2019-10-15] MEDS: NOREPINEPHRINE 8 MG/D5W 250 ML 250 ML IV SCH (10:15)
[2019-10-15 13:05] LABS: ABG HCO3 30 mmol/L (22-26); ABG PCO2 49 mmHg (35-45); ABG PH 7.39 (7.35-7.45); ABG PO2 75 mmHg (80-105); ABG TCO2 31
--- NOTE | 2019-10-15 13:50 | Progress Note ---
DATE: SUBJECTIVE: The patient is still on Lasix drip. He remains in the prone position. He is on fentanyl Versed and Nimbex. The patient is currently on a pressure control mode of ventilation at a rate of 32 with a PEEP of 8 and pressure above PEEP of 26. FiO2 set at 45%. PHYSICAL EXAMINATION: VITAL SIGNS: Blood pressure is 131/66, saturation is 97%. The pulse is 105. HEENT: Shows no facial swelling or erythema. LYMPHATIC: Shows no submandibular, cervical, or supraclavicular adenopathy. CARDIAC: Reveals regular rate and rhythm with normal S1 and S2. LUNGS: Auscultation of lungs reveals rhonchorous breath sounds bilaterally. There is no wheezing. ABDOMEN: Soft and nontender. There is no rebound or guarding. EXTREMITIES: Shows no leg edema or calf tenderness. There is no cyanosis or clubbing. SKIN: Shows no rashes. NEUROLOGICAL: Shows no focal abnormalities. LABORATORY DATA: BUN to creatinine ratio is 21 to 0.53 and potassium is 3.1. Other electrolytes within normal limits. White blood cell count is 15, and hemoglobin is 8.1. The platelet count is 64. RADIOGRAPHIC DATA: Chest x-ray shows bilateral airspace disease. IMPRESSION: 1. Acute respiratory failure. 2. Viral pneumonia and COVID-19 infection. 3. Secondary bacterial pneumonia. 4. Anemia secondary to chronic blood loss. 5. Thrombocytopenia. 6. Anasarca. PLAN: 1. Lasix drip has been increased to 50 mg/hour. 2. Albumin or mannitol as needed to maintain good blood pressure and renal perfusion. 3. Continue enteral feedings at 40 mL an hour. 4. Continue cefepime. 5. Continue Versed, fentanyl, and Nimbex. 6. Tracheostomy. 7. Case discussed with nightshift nursing, dayshift nursing, Respiratory, General Surgery, and Infectious Disease. Greater than 35 minutes in direct critical care time. Maximilian Lowry MD [facility]/MODL /[id number]
--- NOTE | 2019-10-15 14:23 | NUR ---
infectious disease progress note Patient remains intensive care unit patient seen and examined chart reviewed This is October 15, 2019 Level data reviewed and discussed with medical team The patient is still on Lasix drip. He remains in the prone position. Is day #52 He is on fentanyl Versed and Nimbex. The patient is currently on a pressure control mode of ventilation at a rate of 32 with a PEEP of 8 and pressure above PEEP of 26. FiO2 set at 45%. PHYSICAL EXAMINATION: VITAL SIGNS: Blood pressure is 131/66, saturation is 97%. The pulse is 105. HEENT: Shows no facial swelling or erythema. LYMPHATIC: Shows no submandibular, cervical, or supraclavicular adenopathy. CARDIAC: Reveals regular rate and rhythm with normal S1 and S2. LUNGS: Auscultation of lungs reveals rhonchorous breath sounds bilaterally. There is no wheezing. ABDOMEN: Soft and nontender. There is no rebound or guarding. EXTREMITIES: Shows no leg edema or calf tenderness. There is no cyanosis or clubbing. SKIN: Shows no rashes. NEUROLOGICAL: Shows no focal abnormalities. LABORATORY DATA: BUN to creatinine ratio is 21 to 0.53 and potassium is 3.1. Other electrolytes within normal limits. White blood cell count is 15, and hemoglobin is 8.1. The platelet count is 64. RADIOGRAPHIC DATA: Chest x-ray shows bilateral airspace disease. IMPRESSION: 1. Acute respiratory failure. 2. Viral pneumonia and COVID-19 infection. 3. Secondary bacterial pneumonia. 4. Anemia secondary to chronic blood loss. 5. Thrombocytopenia. pneumonia bacteremia pseudomonas aeruginosa continue with cefepime sensitivity pattern reviewed Continue supportive care continue aspiration precautions discussed with medical team
[2019-10-15] MEDS: ENOXAPARIN SOD INJ 40 MG/0.4 ML SYR SC SCH (17:02)
--- NOTE | 2019-10-15 17:24 | NUR ---
HEMATOLOGY/ONCOLOGY PROGRESS NOTE: HPI: Patient remains intubated, in COVID ICU. Events noted. Tachycardic, temp 99.3degF ROS: 14 point ROS unable to obtain secondary to patient intubated. PHYSICAL EXAM: Vitals: Reviewed as per EMR. Temp: 99.3 degF HR: 142 PE not performed due to COVID-19 contact precautions. LABORATORY/RADIOLOGY DATA: Reviewed per EMR. ASSESSMENT AND PLAN: Mr. Miles is a 42-year-old male with past medical history of hypertension who was admitted on 08/24/2019 due to cough and fever. Patient was found to be positive for COVID-19. Intubated due to worsening respiratory status. Patient has been treated with full-dose Lovenox since 09/08/19. Has required PRBC previously during admission. Patient now with dropping platelet count and recurrent anemia requiring PRBC transfusion. Hematology/Oncology has been consulted to assist with the management. 1. Thrombocytopenia: Likely secondary to consumption for infection. DIC panel showed no coagulopathy, elevated fibrinogen, does not appear DIC. Acute hepatitis panel negative. Abdominal US without evidence of liver cirrhosis or splenomegaly. HIT panel negative on 09/15/2019. Platelet now 64,000, repeat DIC panel does not appear DIC with elevated fibrinogen level. Restarted on Lovenox 40mg sq BID. Monitor closely. 2. Anemia: Anemia panel appears mixed picture AOCD + RODRIGUEZ with noted low B12 level. Macrocytosis probably combination of B12 deficiency and possibly also related to bone marrow suppression from viral infection. Ferritin mildly elevated, likely as acute phase reactant. Repeat ferritin significantly more la vated hold IV iron. Reticulocyte count and LDH mildly elevated, haptoglobin elevated, does not appear hemolysis. S/p multiple PRBC transfusions, last on 10/12/2019. Hemoglobin stable. Monitor closely. Transfuse if hemoglobin < 7. 3. COVID-19 PNA: In the ICU, pharmacologically sedated and intubated with weaning off vent as tolerated. On TPN. Undergoing intermittent proning. Blood cultures final negative. Sputum culture with gram negative bacilli. Leukocytosis stable. Fungal cultures pending. CXR with unchanged opacities. Pneumocystis carinii smear negative. On IV antibiotics. Pulmonary and infectious disease on board. 4. Melena/ileus/abd distention: On Pepcid IV. Improved. On TFs with nutrition on board. 5. Fluid overload/oligoanuria: On diuresis, monitor UOP per Nephrology on board. 6. DVT proph: Restarted on Lovenox 40mg sq BID. 7. GOC: Trach on hold per Pulmonary for now. Above plan discussed with Dr. Lona Martinez. Thank you for the consult. I will be available. Please call with questions.
[2019-10-15] MEDS ORDERED: FUROSEMIDE INJ 100 MG in SODIUM CHLORIDE 0.9% 100 ML 90 ML IV SCH (18:00)
--- NOTE | 2019-10-15 19:32 | Progress Note ---
DATE: 10/15/2019 Nephrology Progress Note SUBJECTIVE: The patient remains on respiratory support for COVID pneumonia. Intake 4400, output 2200 in the last 24 hours. OBJECTIVE: VITAL SIGNS: Blood pressure stable. RESPIRATORY: Bilateral air entry, on mechanical ventilation. CARDIOVASCULAR: Regular rate and rhythm. ABDOMEN: Nondistended. EXTREMITIES: 1+ pitting edema bilaterally. LABORATORY DATA: BUN and creatinine remain normal. Serum bicarb 27, potassium low at 3.1, sodium 143, serum albumin 3.1. IMPRESSION: 1. Hypokalemia, replaced IV p.r.n. Continue supplement through feeding tube. 2. Fluid overload, on IV Lasix infusion per ICU team. Urine output appears to be good, although yesterday he was in positive balance. 3. Renal function remains preserved. Marcos Marsh MD [facility]/MODL /[id number]
[2019-10-15] MEDS ORDERED: SODIUM CHLORIDE 0.9% 250ML 250 ML ONE (20:05)
--- NOTE | 2019-10-15 20:28 | Progress Note ---
DATE: 10/15/2019 CONSULTANTS: 1. Dr. Lowry, retail sales lead. 2. Dr. Maguire with Infectious Disease. 3. Dr. Casas with Cardiology. 4. Dr. Roger with Nephrology. SUBJECTIVE: The patient remains intubated and sedated, and in prone position. Tachycardic. OBJECTIVE: VITAL SIGNS: Temperature 99.3, pulse is 148, respiration 32, blood pressure 164/83, and pulse ox is 92% on the vent. GENERAL: Sedated and intubated. HEENT: Normocephalic. LUNGS: Lungs with decreased breath sounds. CARDIOVASCULAR: Tachycardia. Normal S1, S2. ABDOMEN: Soft. : Ho in place. MUSCULOSKELETAL: Generalized pitting edema. NEUROLOGIC: Sedated. SKIN: Dry with multiple pressure ulcers. LABORATORY DATA: WBC 15.06, hemoglobin 8.1, hematocrit 25.7, and platelet 64. Sodium 143, potassium 3.1. BUN 21, creatinine 0.53, blood glucose 108, total bilirubin 1.2, AST 19, ALT 23. ABGs; pH 7.39, pCO2 of 49, PO2 of 57, bicarb 30. ASSESSMENT AND PLAN: 1. Acute respiratory failure due to COVID-19 pneumonia. Sedated and intubated, in prone position. Vent management per retail sales lead. ABGs noted. Resume Flagyl and cefepime per Infectious Disease. WBC 15 today. 2. Leukocytosis. WBC is stable at 15. Sputum culture, gram-negative bacillus. Continue cefepime, vancomycin p.o., and Flagyl. We will continue to monitor. 3. Jotje-jz-uhsfwbg anemia. Status post 5 units of PRBC total. We will continue to monitor closely. Hemoglobin is 8.1 today. 4. Thrombocytopenia. Platelet is 64. Lovenox resumed per lead simulation modeling engineer. 5. Anasarca. Lasix drip increased to 50 per hour. Await on the case. 6. Deep vein thrombosis prophylaxis. Lovenox has been restarted. PLAN: To continue current treatment, and considering tracheostomy placement. Dictated by SNEHAL Laguerre Yoletteching Nathen Aparicio MD MY/MODL /[id number]
[2019-10-16] VITALS (25 sets, daily range): BP systolic 92–164; BP diastolic 46–78
[2019-10-16] MEDS: PROPOFOL IV EMULSION 10MG/ML 100 ML IV PRN ×4 (01:49→23:27)
[2019-10-16] MEDS: FUROSEMIDE INJ 100 MG in SODIUM CHLORIDE 0.9% 100 ML 90 ML IV SCH (02:39)
[2019-10-16] MEDS: FENTANYL 2000MCG/NS 250 250 ML IV PRN ×3 (03:02→17:53)
[2019-10-16] MEDS: METRONIDAZOLE 500MG/NS 100ML 100 ML IV SCH ×2 (04:59→11:23)
[2019-10-16] MEDS: MIDAZOLAM HCL 5MG/ML 10ML VIAL 100 ML IV PRN ×4 (05:03→20:46)
[2019-10-16] MEDS: SUCRALFATE 1 GM/10 ML SUSP NG SCH ×4 (05:47→23:26)
[2019-10-16] MEDS: VANCOMYCIN 250MG/5ML ORAL SOLN PO SCH ×2 (05:47→11:24)
[2019-10-16] MEDS: EYE LUBRICANT OPTH OINT 3.5GM TUBE OP SCH ×4 (05:47→23:26)
[2019-10-16] MEDS: POTASSIUM CHLORIDE 20MEQ/15ML UDC NG SCH ×4 (05:47→23:08)
[2019-10-16] MEDS: CEFEPIME 1GM/NS 0.9% 50 ML 50 ML IV SCH ×2 (06:07→14:19)
[2019-10-16] MEDS: ENOXAPARIN SOD INJ 40 MG/0.4 ML SYR SC SCH ×2 (06:07→17:23)
[2019-10-16 06:13] LABS: BASOPHILS # (AUTO) 0.1 (0.0-0.1); BASOPHILS % 0.7 % (0.0-1.0); EOSINOPHILS # (AUTO) 1.1 (0.0-0.4); EOSINOPHILS % 6.2 % (0.0-6.0); HEMATOCRIT 28.5 % (38.2-49.6); HEMOGLOBIN 8.8 g/dL (14.0-18.0); LYMPHOCYTES # (AUTO) 0.8 (1.0-3.2); MEAN CORPUSCULAR HEMOGLOBIN 29.2 pg (28-32); MEAN CORPUSCULAR HGB CONC 30.9 g/dL (31-35); MEAN CORPUSCULAR VOLUME 94.7 fL (81-99); MONOCYTES # (AUTO) 0.8 (0.2-0.8); MONOCYTES % 4.9 % (4.4-11.3); NEUTROPHILS # (AUTO) 13.5 (2.1-6.9); NEUTROPHILS % 80.2 % (38.7-80.0); PLATELET COUNT 84 x10e3/uL (140-360); RED BLOOD COUNT 3.01 x10e6/uL (4.3-5.7); RED CELL DISTRIBUTION WIDTH 15.3 % (11.7-14.4)
[2019-10-16 06:48] LABS: ALANINE AMINOTRANSFERASE 28 IU/L (0-55); ALBUMIN 2.9 g/dL (3.5-5.0); ALBUMIN/GLOBULIN RATIO 0.8 (0.8-2.0); ALKALINE PHOSPHATASE 231 IU/L (40-150); ANION GAP 13.3 mmol/L (8-16); BLOOD UREA NITROGEN 13 mg/dL (7-26); BUN/CREATININE RATIO 26 (6-25); CALCIUM 8.9 mg/dL (8.4-10.2); CARBON DIOXIDE 32 mmol/L (22-29); CHLORIDE 101 mmol/L (98-107); EST GLOMERULAR FILTRATION RATE > 60 ML/MIN (60-); GLUCOSE 100 mg/dL (74-118); POTASSIUM 3.3 mmol/L (3.5-5.1); SODIUM 143 mmol/L (136-145)
[2019-10-16] MEDS: FAMOTIDINE 20 MG/2 ML VIAL IV SCH ×2 (08:40→20:47)
[2019-10-16] MEDS: ASCORBIC ACID 500 MG TAB PO SCH ×2 (08:40→20:48)
[2019-10-16] MEDS: METOPROLOL TARTRATE 25 MG TAB PO SCH ×2 (08:40→20:47)
[2019-10-16] MEDS: ACETAZOLAMIDE 250 MG TAB NG SCH ×2 (08:40→20:47)
[2019-10-16] MEDS: MULTIVITAMINS/MINERALS TAB PO SCH (08:40)
[2019-10-16] MEDS: BALSAM PERU/CASTOR OIL 60 GM OINT...G. TP SCH (08:41)
[2019-10-16] MEDS: CHOLECALCIFEROL 1,000 UNIT TAB PO SCH (08:41)
[2019-10-16] MEDS: ZINC SULFATE 220 MG CAP PO SCH (08:41)
[2019-10-16] MEDS: CISATRACURIUM BESYLATE 200 MG in SODIUM CHLORIDE 0.9% 250ML 180 ML IV PRN (10:01)
[2019-10-16] MEDS: NOREPINEPHRINE 8 MG/D5W 250 ML 250 ML IV SCH (10:15)
--- NOTE | 2019-10-16 11:21 | NUR ---
Purchasing/Receiving called pt's mother, Reyna ([phone]), to offer emotional/spiritual support. Pt's mom states she is "hoping for the best" and that she has family and faith support. Purchasing/Receiving provided empathic listening and information on how to reach educational technologist, if needed. Normalized experience. Provided prayer. Will follow as able. [facility] O: [phone]
--- NOTE | 2019-10-16 12:12 | Progress Note ---
DATE: SUBJECTIVE: The patient is still in the prone position. He remains on a Lasix drip. He is on Versed and fentanyl as well as Nimbex. He still on pressure control. His PEEP is set at 8 and his pressure above PEEP is 26. His tidal volumes are 390-400. His FiO2 is set at 45%. PHYSICAL EXAMINATION: VITAL SIGNS: The patient is afebrile. The blood pressure is 131/60, saturation is 97%. The heart rate is 110-120. HEENT: Shows no facial swelling or erythema. LYMPHATIC: Shows no submandibular, cervical, or supraclavicular adenopathy. CARDIAC: Reveals regular rate and rhythm with normal S1, S2. LUNGS: Auscultation of lungs reveals rhonchorous breath sounds bilaterally. There is no wheezing. ABDOMEN: Soft, nontender. There is no rebound or guarding. EXTREMITIES: Shows no leg edema or calf tenderness. There is no cyanosis or clubbing. SKIN: Shows no rashes. NEUROLOGICAL: Shows no focal abnormalities. LABORATORY DATA: White blood cell count is 16.8, hemoglobin is 8.8. The platelet count is 84. BUN to creatinine ratio is 13 to 0.5, and other electrolytes are within normal limits. Albumin is 2.9. IMPRESSION: 1. Acute respiratory failure. 2. Viral pneumonia and COVID-19 infection. 3. Anemia secondary to chronic blood loss. 4. Thrombocytopenia. 5. Anasarca. PLAN: 1. Continue Lasix drip. 2. Continue enteral feedings. 3. Continue current antibiotics. 4. Place patient back in the prone position. 5. Continue Versed and fentanyl and Nimbex. 6. Greater than 35 minutes in direct critical care time. Maximilian Lowry MD [facility]/MODL /[id number]
--- NOTE | 2019-10-16 15:44 | Progress Note ---
DATE: 10/16/2019 Cardiology Progress Note SUBJECTIVE: Mr. Miles remains intubated and sedated. OBJECTIVE: VITAL SIGNS: Temperature 99.3, heart rate 125, blood pressure 161/78, respiratory rate 37, O2 saturation 92%. GENERAL: Intubated and sedated. NECK: Supple. CHEST: With rales and decreased breath sounds. CARDIOVASCULAR: Regular rate and rhythm. Normal S1 and S2. ABDOMEN: Soft. EXTREMITIES: 1+ edema. CARDIOVASCULAR MEDICATIONS: Reviewed. Lovenox 40 subcu q.12 hours, furosemide 10 mg/hour IV drip, metoprolol 5 q.6 hours as needed, PO 25 q.12 hours, acetazolamide 250 mg every 12 hours, KCl 30 mEq as needed. STUDIES: Reviewed. Sodium 143, potassium 3.3, chloride 101, bicarbonate 32, BUN 13, creatinine 0.5, glucose 100. White blood cells 16.8, hemoglobin 8.8, platelets 84. INR 1.2, PT 16.5, PTT 37.7. AST 22, ALT 28, alkaline phosphatase 231. ASSESSMENT/PLAN: A 44-year-old man presents with pneumonia with COVID-19 infection, community-acquired, hypertension, morbid obesity, acute respiratory failure, acute on chronic diastolic heart failure, anemia. RECOMMEND: Continue current cardiovascular medications and monitor hemoglobin and platelet count. Continue volume optimization. MD OPAL Del Valle/ANGELA /[id number] MTDD
[2019-10-16] MEDS ORDERED: POTASSIUM CHLORIDE 20MEQ/100ML 100 ML IV ONE (16:15)
--- NOTE | 2019-10-16 18:04 | Progress Note ---
DATE: 10/16/2019 Nephrology Followup Note SUBJECTIVE: The patient in prone position. Continues on IV Lasix infusion at 10 mg an hour, with excellent urine output. OBJECTIVE: VITAL SIGNS: Blood pressure 130/60, heart rate is 110-120. RESPIRATION: Bilateral air entry to ventilator breaths. ABDOMEN: Soft, nondistended. EXTREMITIES: Without pitting edema. NEUROLOGICAL: Sedated. LABORATORY DATA: Hemoglobin 8.8, white count 16.8, platelets below at 84,000. BUN and creatinine remaining normal. Serum albumin 2.9. Potassium 3.3. IMPRESSION: 1. Hypokalemia, secondary to aggressive diuresis with IV Lasix infusion. 2. We will increase K replacement through NG tube to 40 mEq q.i.d. Continue to replace IV supplementally as needed. 3. Fluid overload, responding to IV Lasix. Managed by ICU team. 4. COVID-19 pneumonia. 5. Anasarca secondary to fluid overload and hypoalbuminemia. Marcos Marsh MD [facility]/MODL /[id number]
[2019-10-16 18:20] LABS: ABG HCO3 37 mmol/L (22-26); ABG PCO2 75 mmHg (35-45); ABG PO2 84 mmHg (80-105)
[2019-10-16 18:21] LABS: ABG TCO2 39
[2019-10-16 18:23] LABS: ABG HCO3 35 mmol/L (22-26); ABG PCO2 62 mmHg (35-45); ABG PH 7.36 (7.35-7.45); ABG PO2 95 mmHg (80-105); ABG TCO2 37
--- NOTE | 2019-10-16 20:35 | Progress Note ---
DATE: 10/16/2019 CONSULTANTS: 1. Dr. Lowry, life enrichment manager. 2. Dr. Maguire with Infectious Disease. 3. Dr. Casas with Cardiology. 4. Dr. Roger with Nephrology. SUBJECTIVE: The patient is sedated and intubated, in supine position. No changes. PHYSICAL EXAMINATION: VITAL SIGNS: Temperature 98.8, pulse 129, respirations 32, blood pressure 123/62, and pulse ox is 93% on the vent. GENERAL: Sedated and intubated. HEENT: Normocephalic. LUNGS: Decreased breath sounds. CARDIOVASCULAR: Tachycardia. Normal S1, S2. ABDOMEN: Soft. MUSCULOSKELETAL: Generalized pitting edema. NEUROLOGIC: Sedated. SKIN: Dry with multiple pressure ulcers in the feet and sacral. LABORATORY DATA: WBC 16.84, hemoglobin 8.8, hematocrit 28.5, and platelets 84. Sodium 143, potassium 3.3. BUN 13, creatinine 0.50. Estimated GFR is greater than 60. AST 22, ALT 28. ASSESSMENT AND PLAN: 1. Acute respiratory failure due to COVID-19 pneumonia. Remains intubated and sedated, currently on supine position. Vent management per life enrichment manager. Currently on antibiotics, Flagyl, cefepime per ID. WBC is 16.8. We will defer to ID. 2. Qeyix-ut-dhbcbwo anemia. Status post 5 units PRBC transfusions. We will continue to monitor closely. 3. Thrombocytopenia. Platelet is 84. We will continue to monitor closely. Heating Unit Mechanic on the case. 4. Hypokalemia. Potassium is 3.3. We will replace and recheck. 5. Anasarca. Diuretics per Renal. 6. Deep vein thrombosis prophylaxis. Continue Lovenox 40 mg subcu b.i.d. PLAN: To continue current treatment. Considering tracheostomy placement once he is able to tolerate supine position. Dictated by SNEHAL Laguerre Taylor Aparicio MD MY/MODL /[id number]
[2019-10-17] VITALS (25 sets, daily range): BP systolic 106–189; BP diastolic 56–84
[2019-10-17] MEDS: CISATRACURIUM BESYLATE 200 MG in SODIUM CHLORIDE 0.9% 250ML 100 ML IV PRN ×2 (00:12→14:52)
[2019-10-17] MEDS: FUROSEMIDE INJ 100 MG in SODIUM CHLORIDE 0.9% 100 ML 90 ML IV SCH ×3 (00:12→20:33)
[2019-10-17] MEDS: FENTANYL 2000MCG/NS 250 250 ML IV PRN ×4 (00:30→23:00)
[2019-10-17] MEDS: MIDAZOLAM HCL 5MG/ML 10ML VIAL 100 ML IV PRN ×5 (01:33→21:38)
--- NOTE | 2019-10-17 04:17 | Progress Note ---
DATE: 10/16/2019 SUBJECTIVE: Mr. Miles remain in intensive care unit, the day #53, intubated and sedated. OBJECTIVE: VITAL SIGNS: Stable. There is no fever. HEENT: Normocephalic. NECK: Supple. CHEST: Crackles. HEART: S1 and S2. ABDOMEN: Soft. Bowel sounds present. EXTREMITIES: No edema. He remains on cefepime which was started October 12. He remains on vancomycin p.o. and he is also on Flagyl. He is on Lovenox. His sputum shows Pseudomonas aeruginosa . IMPRESSION: Respiratory failure, ileus, obesity, pneumonia. The patient prognosis is very guarded. I am going to stop his antibiotic today and assess him clinically. We will follow. MD MAYURI Taylor/ANGELA /[id number]
[2019-10-17 04:59] LABS: BASOPHILS # (AUTO) 0.1 (0.0-0.1); BASOPHILS % 0.4 % (0.0-1.0); EOSINOPHILS # (AUTO) 1.1 (0.0-0.4); EOSINOPHILS % 6.2 % (0.0-6.0); HEMATOCRIT 28.4 % (38.2-49.6); HEMOGLOBIN 8.8 g/dL (14.0-18.0); LYMPHOCYTES # (AUTO) 1.1 (1.0-3.2); LYMPHOCYTES % 5.9 % (18.0-39.1); MEAN CORPUSCULAR HEMOGLOBIN 28.3 pg (28-32); MEAN CORPUSCULAR VOLUME 91.3 fL (81-99); MONOCYTES % 5.2 % (4.4-11.3); NEUTROPHILS # (AUTO) 14.2 (2.1-6.9); NEUTROPHILS % 77.9 % (38.7-80.0); PLATELET COUNT 139 x10e3/uL (140-360); RED BLOOD COUNT 3.11 x10e6/uL (4.3-5.7); RED CELL DISTRIBUTION WIDTH 15.1 % (11.7-14.4)
[2019-10-17 05:13] LABS: ALANINE AMINOTRANSFERASE 19 IU/L (0-55); ALBUMIN 2.8 g/dL (3.5-5.0); ALBUMIN/GLOBULIN RATIO 0.7 (0.8-2.0); ALKALINE PHOSPHATASE 191 IU/L (40-150); ANION GAP 10.4 mmol/L (8-16); BLOOD UREA NITROGEN 10 mg/dL (7-26); BUN/CREATININE RATIO 20 (6-25); CARBON DIOXIDE 38 mmol/L (22-29); CHLORIDE 98 mmol/L (98-107); CREATININE, SERUM 0.51 mg/dL (0.72-1.25); EST GLOMERULAR FILTRATION RATE > 60 ML/MIN (60-); GLUCOSE 101 mg/dL (74-118); POTASSIUM 3.4 mmol/L (3.5-5.1); SODIUM 143 mmol/L (136-145)
[2019-10-17] MEDS: EYE LUBRICANT OPTH OINT 3.5GM TUBE OP SCH ×3 (06:04→17:36)
[2019-10-17] MEDS: ENOXAPARIN SOD INJ 40 MG/0.4 ML SYR SC SCH ×2 (06:04→17:36)
[2019-10-17] MEDS: POTASSIUM CHLORIDE 20MEQ/15ML UDC NG SCH ×3 (06:04→17:35)
[2019-10-17] MEDS: SUCRALFATE 1 GM/10 ML SUSP NG SCH ×3 (06:04→17:35)
[2019-10-17] MEDS: PROPOFOL IV EMULSION 10MG/ML 100 ML IV PRN ×3 (06:21→18:12)
[2019-10-17] MEDS: FAMOTIDINE 20 MG/2 ML VIAL IV SCH ×2 (08:45→21:39)
[2019-10-17] MEDS: ACETAZOLAMIDE 250 MG TAB NG SCH ×2 (08:45→21:29)
[2019-10-17] MEDS: METOPROLOL TARTRATE 25 MG TAB PO SCH ×2 (08:45→21:31)
[2019-10-17] MEDS: BALSAM PERU/CASTOR OIL 60 GM OINT...G. TP SCH (08:46)
[2019-10-17] MEDS: CHOLECALCIFEROL 1,000 UNIT TAB PO SCH (08:46)
[2019-10-17] MEDS: ASCORBIC ACID 500 MG TAB PO SCH ×2 (08:46→21:31)
[2019-10-17] MEDS: MULTIVITAMINS/MINERALS TAB PO SCH (08:46)
[2019-10-17] MEDS: ZINC SULFATE 220 MG CAP PO SCH (08:46)
[2019-10-17] MEDS: NOREPINEPHRINE 8 MG/D5W 250 ML 250 ML IV SCH (10:15)
--- NOTE | 2019-10-17 13:04 | Progress Note ---
DATE: SUBJECTIVE: The patient is currently on a Lasix drip at 10 mg an hour. He remains on pressure control. He is on a FiO2 of 45% with a PEEP of 6. His pressure control is 26 and his rate is set at 30. He is off Levophed. He is on Versed, fentanyl, and Nimbex. He is also on 20 of propofol. PHYSICAL EXAMINATION: VITAL SIGNS: The blood pressure is 151/70 and the saturation is 98%. The pulse is 108. HEENT: Shows no facial swelling or erythema. LYMPHATIC: Shows no submandibular, cervical, or supraclavicular adenopathy. CARDIAC: Reveals regular rate and rhythm with normal S1 and S2. LUNGS: Auscultation of lungs reveals rhonchorous breath sounds bilaterally. There is no wheezing. ABDOMEN: Soft and nontender. There is no rebound or guarding. EXTREMITIES: Shows 1 to 2+ leg edema. LABORATORY DATA: White blood cell count is 18.2 and the hemoglobin is 8.8. The platelet count is 139. The BUN to creatinine ratio is 10 to 0.51 and the potassium is 3.4. The other electrolytes are within normal limits. The albumin is 2.4. IMPRESSION: 1. Acute respiratory failure. 2. Viral pneumonia and COVID-19 infection. 3. Anemia secondary to chronic blood loss. 4. Thrombocytopenia. 5. Anasarca. PLAN: 1. Continue Lasix drip. 2. Continue enteral feedings. 3. Continue current antibiotics. 4. Continue Versed, fentanyl, and Nimbex. 5. If the patient can stay in the supine position and remains stable, then we will pursue tracheostomy. Greater than 35 minutes in direct critical care time. Maximilian Lowry MD [facility]/MODL /[id number]
--- NOTE | 2019-10-17 13:46 | NUR ---
infectious disease progress note Patient seen and examined chart reviewed October 17, 2019 Please see my note Please see orders The patient is currently on a Lasix drip at 10 mg an hour. He remains on pressure control. He is on a FiO2 of 45% with a PEEP of 6. His pressure control is 26 and his rate is set at 30. He is off Levophed. He is on Versed, fentanyl, and Nimbex. He is also on 20 of propofol. PHYSICAL EXAMINATION: VITAL SIGNS: The blood pressure is 151/70 and the saturation is 98%. The pulse is 108. HEENT: Shows no facial swelling or erythema. LYMPHATIC: Shows no submandibular, cervical, or supraclavicular adenopathy. CARDIAC: Reveals regular rate and rhythm with normal S1 and S2. LUNGS: Auscultation of lungs reveals rhonchorous breath sounds bilaterally. There is no wheezing. ABDOMEN: Soft and nontender. There is no rebound or guarding. EXTREMITIES: Shows 1 to 2+ leg edema. LABORATORY DATA: White blood cell count is 18.2 and the hemoglobin is 8.8. The platelet count is 139. The BUN to creatinine ratio is 10 to 0.51 and the potassium is 3.4. The other electrolytes are within normal limits. The albumin is 2.4. IMPRESSION: 1. Acute respiratory failure. 2. Viral pneumonia and COVID-19 infection. 3. Anemia secondary to chronic blood loss. 4. Thrombocytopenia. 5. Anasarca.
--- NOTE | 2019-10-17 14:03 | Progress Note ---
DATE: 10/17/2019 Nephrology Followup Note SUBJECTIVE: The patient appears to be clinically stable. Currently in prone position. Blood pressure is stable at 137/68. He is afebrile. He made about 7 L of urine in the last 24 hours on IV Lasix infusion. OBJECTIVE: VITAL SIGNS: Stable. NECK: Without JVP. RESPIRATION: Continues on ventilator support. Bilateral air entry. CARDIOVASCULAR: Regular rate and rhythm. ABDOMEN: Not distended. EXTREMITIES: Without pitting edema or cyanosis. LABORATORY DATA: Renal function remains preserved. Potassium is 3.4 and did receive supplement in addition to the maintenance through NG tube. IMPRESSION: 1. Hypokalemia, continue to administer through feeding tube 4 times a day and supplement with IV as needed. 2. Fluid overload, excellent response to IV Lasix infusion. Fluid essentially being managed by ICU team. 3. Blood pressure, controlled and stable. Marcos Marsh MD [facility]/MODL /[id number]
[2019-10-17 15:31] LABS: ABG PCO2 52 mmHg (35-45); ABG PH 7.45 (7.35-7.45); ABG PO2 112 mmHg (80-105)
[2019-10-17 15:32] LABS: ABG HCO3 36 mmol/L (22-26); ABG TCO2 38
--- NOTE | 2019-10-17 17:40 | NUR ---
Nutrition Intervention Note RD Recommendation(s) for Physician: - Recommend modifying tube feeding to Vital High Protein with a goal rate of 50 mL/hr due to propofol rate as GI status and hemodynamic stability allows (to provide 1200 kcal and 105 gm protein). - Water flushes per MD. - If unable to advance TF to goal rate, recommend initiating standard TPN at 42 ml/hr (Dextrose 30%/500 ml, AA10%/500 ml), standard lytes, add MVI, trace, thiamine. (716 kcal, 50 gm protein). Continue TF as tolerated. Addition of TPN to better meet nutritional needs. - Propofol providing an additional 597 lipid kcal. Plan of Care: RD following, TF rec's, TPN rec's, monitor adequacy and tolerance Nutrition reason for involvement: follow up RD Assessment 10/16: Follow up. Chart reviewed. Pt remains intubated and sedated. Pt is in the prone position per chart. Pt remains on Vital AF 1.2 trickle feeding currently at 10 mL/hr Recommended considering TPN if tube feeding rate is unable to be increased. Pt is receiving propofol at 22.6 mL/hr per chart which provides 597 kcal. Will continue to monitor 10/12: Follow up. Pt remains intubated and sedated with Propofol and Versed. Pt paralyzed with Nimbex. Pt now on Levophed, currently at 10 mcg/min. Pt on trickle TF currently, pt with ileus per MD notes. Spoke with Dr. Lowry over the phone, RD recommended considering TPN as pt continues to not meet needs with TF and currently with an ileus. MD stated that he would prefer to utilize the gut for now and will re-evaluate. RD requested Phos and Mg be drawn in case TPN required tomorrow to evaluate for replacements and initiation. Noted afternoon Phos and Mg WNL. Chart reviewed, plan for trach placement. TPN and TF rec's provided. Will continue to monitor. 10/09: Follow up. Chart reviewed. MD note indicates pt is in the supine position. Per documentation, pt is receiving TF at 30mL/hr not meeting kcal or protein needs. Current recommendations remain appropriate recommend increasing rate to 60 mL/hr. Will continue to monitor. 10/05: Follow up. Chart reviewed. Pt remains intubated and was in the supine position overnight. Pt is no receiving propofol at this time. Pts tube feed is at 20 mL/hr per chart not meeting kcal or protein needs. Tube feed recommendations provided. Will continue to monitor. 10/01: Follow up. Pt remains intubated, sedated on Propofol, and paralyzed. Pt requiring to be proned. TF rate decreased to 20 ml/hr currently- not meeting kcal or protein needs. TF rec's provided. Chart reviewed. Will continue to monitor. 09/29: Follow up. Pt remains intubated, sedated on high dose Propofol, and paralyzed. Pt requiring to be in intermittent prone positioning. TF infusing at 35 ml/hr, not meeting protein needs. TF rec's provided. Chart reviewed. Will continue to monitor. 09/25: Follow up. Chart reviewed. Pt remains intubated and sedated. Pt is receiving propofol at 7.8 mL/hr which provides 205 lipid kcal. TF is infusing at 20 mL/hr. Recommend modifying tube feed formula to Vital High Protein at this time. Will continue to monitor. 09/22: Follow up. Pt remains intubated, sedated, and paralyzed. Pt requiring proning. TF infusing at 10 ml/hr and TPN weaned to 20 ml/hr. Chart reviewed. TF and TPN rec's provided pending ability to advance TF. Will continue to monitor. 09/18: Follow up. Chart reviewed. Pt remains intubated and sedated. Pt was started on tube feeding. Last recorded rate was 20 mL/hr this afternoon. Pt continues to receive TPN @ 42 mL/hr. Propofol rate is at 13.4 mL/hr (provides 354 kcal). Recommendations provided. Will continue to monitor 09/15: Follow up. Pt remains intubated, sedated on Propofol at 19.6 ml/hr, and paralyzed. Pt continues on TPN at 42 ml/hr, not meeting needs. Pt continues with persistent ileus and is receiving enemas and suppositories. Pt requiring daily proning 2/2 respiratory status. TF order remains, recommend NPO for now. TPN goal rec's provided, continues at 42 ml/hr. Chart reviewed. Will continue to monitor. 09/11: Follow up. Chart reviewed. Pt remains intubated and sedated. Pt is receiving 30 mL/hr of propofol per documentation which provides 792 lipid kcal. Tube feeding has been held due to abdominal distention and pt was started on TPN @ 42 mL/hr today. MD note indicates pt has an ileus. Recommendations provided. Will continue to monitor. 09/07: Follow up. Chart reviewed. Pt remains intubated and sedated. Pt is receiving 23.6 mL/hr of propofol per documentation which provides 623 lipid kcal. TF was at 20 mL/hr last night per chart. Per MD note, pts abdomen is distended and has not had a BM. Will continue to monitor. 09/04: Follow up. Pt remains intubated and sedated. Pt is receiving 9 mL/hr of propofol per documentation, which provides 238 lipid kcal. TF was at 20 mL/hr per chart yesterday. No additional administration rate is available. Will continue to monitor. 09/02: Follow up. Pt remains intubated, paralyzed, and sedated on Propofol and Versed. Pt requiring proning. TF rate at 10 ml/hr per TF documentation yesterday- inadequate EN currently, no additional EN administration available per chart. Recommend continuing EN while pt is proned by placing them in reverse Trendelenburg position. If unable to advance TF to goal rate, recommend considering PN. Chart reviewed. Will continue to monitor. 08/29: Initial encounter with patient. Pt is sedated and orally intubated. Pt was not able to provide a nutrition Hx at the time of visit. Unable to observe oral cavity or perform a nutrition focused physical exam. Jevity 1.2 infusing at 20ml hr with a goal of 50ml/hr. Propofol provides 1.1kcal/ml EN provides 576 kcals, 26.64g of protein, and 387.36ml of free H2O Principal Problems/Diagnoses: CoVID 19 pneumonia PMH: No significant medical Hx, overweight/obesity GI: round, firm abdomen, last recorded BM 10/16 Skin: stage 2 right ear pressure ulcer, penis ischemic edema, bilateral knees- ischemic edema , scrotal abrasion Labs: 10/16: Na 143, K 3.4, BUN 10, Cr 0.51, Glu 101 10/12: Na 139, K 4.1, BUN 20, Cr 0.57, Cl 103, CO2 25, Gluc 135, Phos 3.3, Mg 1.8 10/09: Na 140, K 3.4, BUN 15, Cr 0.44, Glu 103 10/05: Na 139, K 3.3, BUN 15, Cr 0.42, Glu 113, Ca 8.2 10/01: Na 139, K 4, BUN 12, Cr 0.59, Gluc 141, POC Gluc 127-175 09/29: Na 138, K 2.9, BUN 5, Cr 0.39, Gluc 87, POC 107-116 09/25: Na 142, K 3.7, BUN 11, Cr 0.49, Ca 7.8, Glu 107 09/22: Na 145, K 3.3, Cl 93, CO2 38, BUN 5, Cr 0.5, Gluc 129, POC 97-130 09/18: Na 146, K 3.6, Cr 0.50, BUN 13, Glu 100, Ca 7.7, Total Bili 1.6, AST 43 09/15: Na 148, K 3.8, Cl 102, CO2 38, BUN 15, Cr 0.57, Gluc 111 09/11: Na 148, BUN 18, Cr 0.51, Glu 120, Ca 8.0 09/07: Na 144, K 3.8, BUN 13, Cr 0.52, Glu 92, Ca 7.8 09/04: Na 141, K 4.0, BUN 21, Cr 0.63, Glu 122 09/02: Na 139, K 4.2, BUN 19, Cr 0.61, Gluc 101 Meds: fentanyl, propofol 22.6 mL/hr (597 kcal), furosemide, zinc sulfate, vitamin C, pepcid, metoprolol Ht: 67 in. Wt: 156 lbs (10/16) 206 lbs (10/12) 212 lbs (10/09) 236 lbs (10/05) 251 lbs (09/28) 253.5 lbs (09/25) 254.31 lb (09/22) 258 lbs (09/18) 254 lb (09/15)- questionable wt gain, 218 lbs (09/11/19) 219 lbs (08/28) 220 lbs (09/04) 215.31lb (09/02), 200.44lbs (08/29) BMI: 31.4kg/m2 (weight used- 200 lbs) IBW: 148 lbs Malnutrition Evaluation (10/17/2019) Pt currently meets criteria for mild protein calorie malnutrition. Intake adequacy: Moderate- TF not meeting needs, Propofol providing additional kcal Wt loss: pt with wt fluctuations since admit related to fluid Fat loss: JACOB per current isolation protocol- unable to complete NFPE, BMI indicative of adequate fat stores Muscle loss: JACOB per current isolation protocol- unable to complete NFPE Edema: Mild- 1-2+ leg edema per MD note Functional status: JACOB due to intubation Nutrition Prescription (Diet Order): Vital AF at 20 ml/hr - infusing at 10 mL/hr (288 kcal and 18 gm protein) currently due to ileus, Propofol providing an additional 597 kcal. Estimated Nutritional Needs: 0101-2722 calories/day (22-25 kcal/kg IBW) 101-135 g protein/day (1.5-2 g pro/kg IBW) Diet Adequacy: not meeting calorie needs, Not meeting protein needs Diet Education Needs Assessment: Diet education not indicated. Nutrition Care Level: high- not meeting needs Nutrition Diagnosis: Inadequate energy and protein intake related to intubation as evidenced by pt requiring alternative means of nutrition. Goal: Patient will meet 75-100% of estimated needs by follow up Progress: goal not met Interventions: Composition, Rate, Route, Recommended modifications Monitoring/Evaluation: Total energy intake, Total protein intake, Formula/Solution, Prescription medication, Weight change Signed: Nina Reese RD, CHRISTIANE
[2019-10-17 18:41] LABS: ABG HCO3 37 mmol/L (22-26); ABG PCO2 52 mmHg (35-45); ABG PH 7.46 (7.35-7.45); ABG PO2 159 mmHg (80-105); ABG TCO2 39
--- NOTE | 2019-10-17 20:21 | Progress Note ---
DATE: 10/17/2019 Cardiology Progress Note SUBJECTIVE: Mr. Miles remains intubated and sedated. OBJECTIVE: VITAL SIGNS: Temperature 99.9, heart rate 118, sinus tachycardia on telemetry, blood pressure 156/77, respiratory rate 30, and O2 saturation 99%. GENERAL: Intubated and sedated. NECK: Supple. CHEST: Rales. Decreased breath sounds. CARDIOVASCULAR: Regular rate and rhythm. Normal S1, S2. ABDOMEN: Soft. Bowel sounds positive. EXTREMITIES: 1+ edema. CARDIOVASCULAR MEDICATIONS: Reviewed. KCl 40 mEq every 6 hours, metoprolol tartrate 25 mg every 12 hours, furosemide 10 mg/hour IV drip, IV metoprolol IV q.6 hours as needed, and Lovenox 40 mg subcu q.12 hours. STUDIES: Reviewed. Sodium 143, potassium 3.4, chloride 98, bicarbonate 38, BUN 10, creatinine 0.5, and glucose 101. White blood cells 18, hemoglobin 8.8, and platelets 139. INR 1.2. AST 13, ALT 19, and alkaline phosphatase 91. ASSESSMENT: A 44-year-old man, presents with coronavirus disease-19 infection, community-acquired pneumonia, acute respiratory failure, prolonged ventilator support, anemia, hypertension, and acute on chronic diastolic heart failure. RECOMMENDATIONS: 1. Continue diuretics. Continue vent weaning. 2. Continue to monitor H and H. 3. Continue antihypertensives and rest of cardiovascular medications, particularly diuretics with electrolyte repletion as needed. MD OPAL Del Valle/ANGELA /[id number] MTDD
--- NOTE | 2019-10-17 20:30 | Progress Note ---
DATE: 10/17/2019 CONSULTANTS: 1. Dr. Lowry, environmental services floor tech. 2. Dr. Maguire with Infectious Disease. 3. Dr. Casas with Cardiology. 4. Dr. Roger with Nephrology. SUBJECTIVE: The patient intubated and sedated, in prone position. No events overnight. PHYSICAL EXAMINATION: VITAL SIGNS: Temperature 99.9, pulse is 118, respirations 30, blood pressure 156/77, and pulse ox 99% on the vent. GENERAL: Sedated and intubated. HEENT: Normocephalic, atraumatic. LUNGS: With decreased breath sounds. CARDIOVASCULAR: Tachycardia. Normal S1, S2. ABDOMEN: Soft. MUSCULOSKELETAL: Generalized edema. NEUROLOGIC: Sedated. SKIN: Dry with multiple pressure ulcers. LABORATORY DATA: WBC 18.28, hemoglobin 8.8, hematocrit 28.4, and platelet 139. Sodium 143, potassium 3.4. BUN 10, creatinine 0.51. Estimated GFR is greater than 60. Blood sugar 101, AST 13, ALT 19. ABG; pH of 7.45, pCO2 of 52, PO2 of 112, and bicarb 36, O2 sat 98%. ASSESSMENT: 1. Acute respiratory failure due to COVID-19 pneumonia. He is sedated and intubated, in prone position. Vent management per environmental services floor tech. Currently on antibiotic per ID. 2. Oehgt-iu-ubpswbr anemia. Status post transfusion of 5 units of PRBCs. Hemoglobin is stable. We will continue to monitor closely. 3. Thrombocytopenia. Platelet improving. We will continue with monitor. Hematology on the case. 4. Hypokalemia. We will replete. 5. Anasarca. Diuretics per Renal. 6. Deep vein thrombosis prophylaxis. Continue Lovenox 40 mg subcu. PLAN: To continue current treatment, tolerating supine position for greater than 12 hours. Currently, in prone position will continue. Dictated by SNEHAL Laguerre Taylor Aparicio MD MY/MODL /[id number]
--- NOTE | 2019-10-17 21:11 | Diagnostic Imaging Report ---
EXAMINATION: CHEST SINGLE (PORTABLE) COMPARISON: Chest x-ray 10/14/2019 INDICATION: ^resp failure ^[id number] ^1943 DISCUSSION: Frontal view of the chest obtained at 1942 hours. HEART AND MEDIASTINUM: Poorly visualized due to widespread pulmonary infiltrates LINES: Endotracheal tube terminates 4 to 5 cm above the clavicle. Enteric tube extends past the diaphragm. Left IJ catheter terminates in the right atrium. Right PICC line terminates in the SVC. LUNGS/PLEURA: Diffuse pulmonary infiltrates are redemonstrated, left lung more severe than the right. Right lateral and left apical lateral pleural thickening is stable. No evidence of pneumothorax BONES AND SOFT TISSUES: No focal osseous lesion. The soft tissues are normal. IMPRESSION: 1. Support devices as described above. 2. No change in multifocal pulmonary infiltrates and focal pleural thickening. Signed by: Dr. Lali Hampton MD on 10/17/2019 8:02 PM
--- NOTE | 2019-10-17 22:35 | NUR ---
Dr. Lowry notified of CXR readings re: ETT placement. viewed CXR. stated to "advance ETT 2 cm". Will notify RT. also stated to leave pt in supine position in AM if pt tolerates.
[2019-10-18] VITALS (24 sets, daily range): BP systolic 97–154; BP diastolic 49–77
[2019-10-18] MEDS: POTASSIUM CHLORIDE 20MEQ/15ML UDC NG SCH ×4 (00:17→17:48)
[2019-10-18] MEDS: SUCRALFATE 1 GM/10 ML SUSP NG SCH ×4 (00:17→17:46)
[2019-10-18] MEDS: EYE LUBRICANT OPTH OINT 3.5GM TUBE OP SCH ×4 (00:17→17:48)
[2019-10-18] MEDS: PROPOFOL IV EMULSION 10MG/ML 100 ML IV PRN ×3 (00:30→17:50)
[2019-10-18] MEDS: MIDAZOLAM HCL 5MG/ML 10ML VIAL 100 ML IV PRN ×4 (03:35→18:22)
[2019-10-18] MEDS: ACETAMINOPHEN 325 MG TAB NG PRN (03:43)
[2019-10-18 04:38] LABS: BASOPHILS # (AUTO) 0.1 (0.0-0.1); BASOPHILS % 0.5 % (0.0-1.0); EOSINOPHILS # (AUTO) 1.5 (0.0-0.4); EOSINOPHILS % 8.2 % (0.0-6.0); HEMATOCRIT 28.2 % (38.2-49.6); HEMOGLOBIN 8.8 g/dL (14.0-18.0); LYMPHOCYTES % 5.3 % (18.0-39.1); MEAN CORPUSCULAR HEMOGLOBIN 28.3 pg (28-32); MEAN CORPUSCULAR HGB CONC 31.2 g/dL (31-35); MEAN CORPUSCULAR VOLUME 90.7 fL (81-99); MONOCYTES # (AUTO) 1.1 (0.2-0.8); MONOCYTES % 5.7 % (4.4-11.3); NEUTROPHILS # (AUTO) 13.9 (2.1-6.9); NEUTROPHILS % 74.7 % (38.7-80.0); PLATELET COUNT 195 x10e3/uL (140-360); RED BLOOD COUNT 3.11 x10e6/uL (4.3-5.7); RED CELL DISTRIBUTION WIDTH 14.7 % (11.7-14.4)
[2019-10-18 04:58] LABS: ALANINE AMINOTRANSFERASE 16 IU/L (0-55); ALBUMIN 2.9 g/dL (3.5-5.0); ALBUMIN/GLOBULIN RATIO 0.7 (0.8-2.0); ALKALINE PHOSPHATASE 172 IU/L (40-150); ANION GAP 12.7 mmol/L (8-16); BLOOD UREA NITROGEN 10 mg/dL (7-26); BUN/CREATININE RATIO 19 (6-25); CALCIUM 9.1 mg/dL (8.4-10.2); CARBON DIOXIDE 35 mmol/L (22-29); CHLORIDE 95 mmol/L (98-107); CREATININE, SERUM 0.53 mg/dL (0.72-1.25); EST GLOMERULAR FILTRATION RATE > 60 ML/MIN (60-); GLUCOSE 104 mg/dL (74-118); POTASSIUM 3.7 mmol/L (3.5-5.1); SODIUM 139 mmol/L (136-145)
[2019-10-18] MEDS: CISATRACURIUM BESYLATE 200 MG in SODIUM CHLORIDE 0.9% 250ML 100 ML IV PRN ×2 (05:19→17:50)
[2019-10-18] MEDS: ENOXAPARIN SOD INJ 40 MG/0.4 ML SYR SC SCH ×2 (06:00→17:48)
[2019-10-18] MEDS ORDERED: FUROSEMIDE INJ 10 MG/ML 10 ML VIAL ONE (06:14)
[2019-10-18] MEDS ORDERED: SODIUM CHLORIDE 0.9% 100 ML ONE (06:15)
[2019-10-18] MEDS: FUROSEMIDE INJ 100 MG in SODIUM CHLORIDE 0.9% 100 ML 90 ML IV SCH ×2 (06:15→17:46)
[2019-10-18] MEDS: FENTANYL 2000MCG/NS 250 250 ML IV PRN ×3 (06:16→20:13)
[2019-10-18] MEDS: BALSAM PERU/CASTOR OIL 60 GM OINT...G. TP SCH (08:39)
[2019-10-18] MEDS: ACETAZOLAMIDE 250 MG TAB NG SCH ×2 (08:39→20:11)
[2019-10-18] MEDS: CHOLECALCIFEROL 1,000 UNIT TAB PO SCH (08:39)
[2019-10-18] MEDS: ASCORBIC ACID 500 MG TAB PO SCH ×2 (08:39→20:12)
[2019-10-18] MEDS: METOPROLOL TARTRATE 25 MG TAB PO SCH ×2 (08:39→20:11)
[2019-10-18] MEDS: FAMOTIDINE 20 MG/2 ML VIAL IV SCH ×2 (08:39→20:11)
[2019-10-18] MEDS: MULTIVITAMINS/MINERALS TAB PO SCH (08:39)
[2019-10-18] MEDS: ZINC SULFATE 220 MG CAP PO SCH (08:39)
--- NOTE | 2019-10-18 08:42 | NUR ---
HEMATOLOGY/ONCOLOGY PROGRESS NOTE: HPI: Patient remains intubated and sedated, in COVID ICU. Events noted, supine as tolerated. Temp 100.7degF. Off pressors ROS: 14 point ROS unable to obtain secondary to patient intubated. PHYSICAL EXAM: Vitals: Reviewed as per EMR. Temp: 100.7degF HR: 118 RR 30 BP 100/52 PE not performed due to COVID-19 contact precautions. LABORATORY/RADIOLOGY DATA: Reviewed per EMR. ASSESSMENT AND PLAN: Mr. Miles is a 44-year-old male with past medical history of hypertension who was admitted on 08/24/2019 due to cough and fever. Patient was found to be positive for COVID-19. Intubated due to worsening respiratory status. Patient has been treated with full-dose Lovenox since 09/08/19. Has required PRBC previously during admission. Patient now with dropping platelet count and recurrent anemia requiring PRBC transfusion. Hematology/Oncology has been consulted to assist with the management. 1. Thrombocytopenia: Likely secondary to consumption for infection. DIC panel showed no coagulopathy, elevated fibrinogen, does not appear DIC. Acute hepatitis panel negative. Abdominal US without evidence of liver cirrhosis or splenomegaly. HIT panel negative on 09/15/2019. Repeat DIC panel does not appear DIC with elevated fibrinogen level. Platelet now trending up to 195,000. THROMBOCYTOPENIA RESOLVED. Continue on Lovenox 40mg sq BID. can move to full dose 1mg/kg BID if clear by other teams. Monitor closely. 2. Anemia: Anemia panel appears mixed picture AOCD + RODRIGUEZ with noted low B12 level. Macrocytosis probably combination of B12 deficiency and possibly also related to bone marrow suppression from viral infection. Ferritin mildly elevated, likely as acute phase reactant. Repeat ferritin significantly more la vated hold IV iron. Reticulocyte count and LDH mildly elevated, haptoglobin elevated, does not appear hemolysis. S/p multiple PRBC transfusions, last on 10/12/2019. Hemoglobin stable. Monitor closely. Transfuse if hemoglobin < 7. 3. COVID-19 PNA: In the ICU, pharmacologically sedated and intubated with weaning off vent as tolerated. On TPN. Undergoing intermittent proning. Blood cultures final negative. Pneumocystis carinii smear negative. Sputum culture with gram negative bacilli. Gram stain with Pseudomonas Aeruginosa. Leukocytosis slowly trending up. Fungal cultures pending. CXR 10/16 with unchanged multifocal infiltrates. Off antibiotics. Pulmonary and infectious disease on board. 4. Melena/ileus/abd distention: On Pepcid IV q12h. Improved. On TFs with nutrition on board. 5. Fluid overload/oligoanuria: On diuresis, monitor UOP per Nephrology on board. 6. DVT proph: Continue on Lovenox 40mg sq BID. 7. GOC: Trach on hold per Pulmonary for now. Above plan discussed with Dr. Lona Martinez. Thank you for the consult. I will be available. Please call with questions.
[2019-10-18 09:11] LABS: ABG PCO2 60 mmHg (35-45); ABG PH 7.41 (7.35-7.45)
[2019-10-18 09:12] LABS: ABG HCO3 38 mmol/L (22-26); ABG PO2 67 mmHg (80-105); ABG TCO2 40
--- NOTE | 2019-10-18 10:11 | NUR ---
infectious disease progress note. Patient seen and examined chart reviewed. October 18, 2019. Path patient remains in the intensive care unit extremely il L Case discussed with the medical team PHYSICAL EXAMINATION: VITAL SIGNS: The patient's saturation is now in the low 90s. He is on pressure control with PEEP of 6 and the pressure above PEEP of 26. His rate is set at 32 and his FiO2 is set at 60%. His tidal volumes are above 350. HEENT: Shows no facial swelling or erythema. There is an oral endotracheal tube. The site is clean. He has a PICC line in place as well as an arterial line. CARDIAC: Reveals regular rate and rhythm with normal S1 and S2. LUNGS: Auscultation of lungs reveals rhonchorous breath sounds bilaterally. There is no wheezing. ABDOMEN: Soft and nontender. There is no rebound or guarding. EXTREMITIES: Shows no leg edema or calf tenderness. There is no cyanosis or clubbing. SKIN: Shows no rashes. NEUROLOGICAL: Shows no focal abnormalities. LABORATORY DATA: White blood cell count is 18.6 and hemoglobin is 8.8. The platelet count is 195. The BUN to creatinine ratio is 10 to 0.53 and the other electrolytes are within normal limits. Albumin is 2.9. IMPRESSION: 1. Acute respiratory failure. 2. Viral pneumonia and COVID-19 infection. 3. Anemia secondary to chronic blood loss. 4. Thrombocytopenia. 5. Anasarca. see orders
--- NOTE | 2019-10-18 13:02 | Progress Note ---
DATE: SUBJECTIVE: The patient is currently on his back. He remains on a Lasix drip at 10 mg an hour. He continues on Versed and fentanyl as well as Nimbex. PHYSICAL EXAMINATION: VITAL SIGNS: The patient's saturation is now in the low 90s. He is on pressure control with PEEP of 6 and the pressure above PEEP of 26. His rate is set at 32 and his FiO2 is set at 60%. His tidal volumes are above 350. HEENT: Shows no facial swelling or erythema. There is an oral endotracheal tube. The site is clean. He has a PICC line in place as well as an arterial line. CARDIAC: Reveals regular rate and rhythm with normal S1 and S2. LUNGS: Auscultation of lungs reveals rhonchorous breath sounds bilaterally. There is no wheezing. ABDOMEN: Soft and nontender. There is no rebound or guarding. EXTREMITIES: Shows no leg edema or calf tenderness. There is no cyanosis or clubbing. SKIN: Shows no rashes. NEUROLOGICAL: Shows no focal abnormalities. LABORATORY DATA: White blood cell count is 18.6 and hemoglobin is 8.8. The platelet count is 195. The BUN to creatinine ratio is 10 to 0.53 and the other electrolytes are within normal limits. Albumin is 2.9. IMPRESSION: 1. Acute respiratory failure. 2. Viral pneumonia and COVID-19 infection. 3. Anemia secondary to chronic blood loss. 4. Thrombocytopenia. 5. Anasarca. PLAN: 1. Continue Lasix drip. 2. Continue to ventilate the patient in supine position. 3. Complete antibiotics. 4. Continue Versed, fentanyl and Nimbex. 5. Continue to monitor electrolytes and replace potassium. Maximilian Lowry MD [facility]/REYESL /[id number]
--- NOTE | 2019-10-18 17:37 | Diagnostic Imaging Report ---
EXAMINATION: CHEST SINGLE (PORTABLE) INDICATION: Respiratory failure COMPARISON: Chest radiograph 10-17-2019. FINDINGS: LINES/TUBES: Endotracheal tube, enteric tube, left IJ central venous catheter, and right arm PICC in unchanged position. LUNGS:Increasing diffuse extensive bilateral consolidative opacities. Central airways are visualized. PLEURA:Increasing small bilateral pleural effusions. No pneumothorax. MEDIASTINUM:Cardiomediastinal silhouette is difficult to evaluate given extensive consolidations which silhouette the left and right heart borders. BONES/SOFT TISSUES:No acute osseous injury. ABDOMEN:No free air under the diaphragm. IMPRESSION: Increasing diffuse bilateral extensive consolidative opacities. Increasing small bilateral pleural effusions. Signed by: Dr. Anurag Braun MD on 10/18/2019 5:34 PM
--- NOTE | 2019-10-18 17:38 | Diagnostic Imaging Report ---
EXAMINATION: CHEST SINGLE (PORTABLE) INDICATION: Respiratory failure COMPARISON: Chest radiograph 10-17-2019. FINDINGS: LINES/TUBES: Interval advancement of endotracheal tube, which terminates 3.3 cm above the fred. Enteric tube, left IJ central venous catheter, and right arm PICC in unchanged position. LUNGS:Persistent diffuse extensive bilateral consolidative opacities. Central airways are visualized. PLEURA:Persistent small bilateral pleural effusions. No pneumothorax. MEDIASTINUM:Cardiomediastinal silhouette is difficult to evaluate given extensive consolidations which silhouette the left and right heart borders. BONES/SOFT TISSUES:No acute osseous injury. ABDOMEN:No free air under the diaphragm. IMPRESSION: Interval advancement of endotracheal tube, terminating 3.3 cm above the fred. Other lines and tubes as above. No pneumothorax. Diffuse bilateral consolidative opacities. Small bilateral pleural effusions. Signed by: Dr. Anurag Braun MD on 10/18/2019 5:35 PM
[2019-10-18 18:53] LABS: ABG HCO3 39 mmol/L (22-26); ABG PCO2 101 mmHg (35-45); ABG PH 7.19 (7.35-7.45); ABG PO2 95 mmHg (80-105); ABG TCO2 42
--- NOTE | 2019-10-18 18:59 | Progress Note ---
DATE: 10/18/2019 Nephrology Followup Note. SUBJECTIVE: The patient remains on IV Lasix infusion at 10 mg an hour, with excellent urine output. Overall, he is in negative balance of about 1500 mL. OBJECTIVE: VITAL SIGNS: Stable, he remains on the ventilator with FiO2 at 60%, and blood pressure is 132/60. HEENT: Oral endotracheal tube in place. CARDIAC: Regular rate and rhythm with S1, S2. RESPIRATIONS: Bilateral symmetric air entry without wheezing. ABDOMEN: Nondistended. EXTREMITIES: Without pitting edema or cyanosis. LABORATORY DATA: Hemoglobin is 8.8. BUN and creatinine normal. Serum albumin 2.9. Potassium is 3.7. IMPRESSION: 1. Hypokalemia, secondary to aggressive diuresis. Today's potassium level is acceptable. 2. Continue supplementation through feeding tube and IV as needed. 3. Fluid overload, responding to IV Lasix infusion. Adjust drip according to directions from ICU team. 4. Renal function remains preserved. Marcos Marsh MD [facility]/MODL /[id number]
--- NOTE | 2019-10-18 20:04 | Progress Note ---
DATE: 10/18/2019 Cardiology Progress Note. SUBJECTIVE: Tachycardic after proning. OBJECTIVE: VITAL SIGNS: Temperature 98.3, heart rate 137, sinus tachycardia on telemetry, blood pressure 104/56, respiratory rate 30, O2 saturation 97%. GENERAL: Intubated and sedated in prone position. NECK: Supple. CHEST: Decreased breath sounds and rales. CARDIOVASCULAR: Regular rate and rhythm. Normal S1, S2. ABDOMEN: Bowel sounds positive. EXTREMITIES: Trace edema. Normothermic extremities. CARDIOVASCULAR MEDICATIONS: Reviewed: 1. Metoprolol tartrate 25 mg every 12 hours. 2. KCl for potassium repletion. 3. Furosemide 10 per hour. 4. Lovenox 40 q.12 hours. 5. Additional metoprolol 5 q.6 IV p.r.n. STUDIES: Reviewed, sodium 139, bicarbonate 35, BUN 10, creatinine 0.5, glucose 104. White blood cells 18, hemoglobin 8.8, and platelets 195. ASSESSMENT AND PLAN: A 44-year-old man presents with acute respiratory failure in setting of COVID-19 infection, community-acquired pneumonia and history of hypertension, acute on chronic diastolic heart failure, anemia. RECOMMENDATION: Consider additional repositioning depending on initial results of chest x-ray. Continue rest of cardiovascular medications. Continue Lovenox and beta-freddie. MD OPAL Del Valle/ANGELA /[id number]
[2019-10-18 20:22] LABS: ABG PCO2 78 mmHg (35-45); ABG PH 7.32 (7.35-7.45)
[2019-10-18 20:23] LABS: ABG HCO3 40 mmol/L (22-26); ABG PO2 120 mmHg (80-105); ABG TCO2 42
--- NOTE | 2019-10-18 20:49 | Progress Note ---
DATE: 10/18/2019 CONSULTANTS: 1. Dr. Lowry, payroll technician. 2. Dr. Maguire, Infectious Disease. 3. Dr. Casas with Cardiology. 4. Dr. Roger, Nephrology. SUBJECTIVE: The patient remains sedated and intubated in supine position. No changes or events noted overnight. PHYSICAL EXAMINATION: VITAL SIGNS: Temperature 98.3, pulse 137, respirations 30, blood pressure 104/97, pulse ox is 97% on the vent. GENERAL: Sedated and intubated. HEENT: Normocephalic and atraumatic. LUNGS: With decreased breath sounds. CARDIOVASCULAR: Tachycardia. Normal S1 and S2 heard. ABDOMEN: Soft. MUSCULOSKELETAL: Generalized edema. NEUROLOGIC: Sedated. SKIN: Dry with multiple pressure ulcer points. LABORATORY DATA: WBC 18.59, hemoglobin 8.8, hematocrit 28.2, and platelets 195. Sodium 139, potassium 3.7, BUN 10, creatinine 0.53, estimated GFR is greater than 60, blood glucose 112, AST 16, ALT 16, alkaline phosphate 172. ABG; pH is 7.41, pCO2 is 50, PO2 is 67, bicarb of 38, O2 sats 92. Sputum culture is positive for Pseudomonas aeruginosa. Chest x-ray, diffuse bilateral consolidative opacities, small bilateral pleural effusion. IMPRESSION: 1. Acute respiratory failure due to coronavirus disease 2019 pneumonia. Remains sedated and intubated in supine position. Vent management per payroll technician. Off antibiotics per ID. 2. Pluzg-qz-xsitooi anemia, status post 5 units of PRBC. Hemoglobin is stable. We will continue to monitor closely. 3. Thrombocytopenia. Platelet 195. We will continue to monitor per Hematology. 4. Hypokalemia. Replaced. 5. Anasarca. Diuretics per Renal. 6. Leukocytosis. Sputum culture is positive for Pseudomonas aeruginosa. Currently off antibiotics per ID. 7. Deep venous thrombosis prophylaxis. Continue Lovenox 40 mg subcu. 8. Obesity. PLAN: To continue current treatment, diuretics, vent management, and supportive therapy. Dictated by SNEHAL Laguerre Yiching Nathen Aparicio MD MY/MODL /[id number]
[2019-10-19] VITALS (24 sets, daily range): BP systolic 104–160; BP diastolic 51–75
[2019-10-19] MEDS: FUROSEMIDE INJ 100 MG in SODIUM CHLORIDE 0.9% 100 ML 90 ML IV SCH ×3 (00:18→19:39)
[2019-10-19] MEDS: POTASSIUM CHLORIDE 20MEQ/15ML UDC NG SCH ×4 (00:18→18:20)
[2019-10-19] MEDS: SUCRALFATE 1 GM/10 ML SUSP NG SCH ×4 (00:18→18:20)
[2019-10-19] MEDS: EYE LUBRICANT OPTH OINT 3.5GM TUBE OP SCH ×4 (00:18→18:20)
[2019-10-19 05:38] LABS: BASOPHILS % 0.3 % (0.0-1.0); EOSINOPHILS # (AUTO) 1.3 (0.0-0.4); EOSINOPHILS % 10.8 % (0.0-6.0); HEMATOCRIT 26.7 % (38.2-49.6); LYMPHOCYTES # (AUTO) 0.9 (1.0-3.2); LYMPHOCYTES % 7.7 % (18.0-39.1); MEAN CORPUSCULAR HEMOGLOBIN 27.4 pg (28-32); MEAN CORPUSCULAR VOLUME 91.4 fL (81-99); MONOCYTES # (AUTO) 0.7 (0.2-0.8); MONOCYTES % 5.7 % (4.4-11.3); NEUTROPHILS # (AUTO) 8.4 (2.1-6.9); NEUTROPHILS % 70.3 % (38.7-80.0); PLATELET COUNT 207 x10e3/uL (140-360); RED BLOOD COUNT 2.92 x10e6/uL (4.3-5.7); RED CELL DISTRIBUTION WIDTH 14.9 % (11.7-14.4)
[2019-10-19 05:55] LABS: ALANINE AMINOTRANSFERASE 13 IU/L (0-55); ALBUMIN 2.8 g/dL (3.5-5.0); ALBUMIN/GLOBULIN RATIO 0.6 (0.8-2.0); ALKALINE PHOSPHATASE 134 IU/L (40-150); ANION GAP 13.2 mmol/L (8-16); BLOOD UREA NITROGEN 11 mg/dL (7-26); BUN/CREATININE RATIO 21 (6-25); CARBON DIOXIDE 36 mmol/L (22-29); CHLORIDE 94 mmol/L (98-107); CREATININE, SERUM 0.52 mg/dL (0.72-1.25); EST GLOMERULAR FILTRATION RATE > 60 ML/MIN (60-); GLUCOSE 84 mg/dL (74-118); POTASSIUM 3.2 mmol/L (3.5-5.1); SODIUM 140 mmol/L (136-145)
[2019-10-19] MEDS: ENOXAPARIN SOD INJ 40 MG/0.4 ML SYR SC SCH ×2 (06:04→18:20)
[2019-10-19] MEDS: MIDAZOLAM HCL 5MG/ML 10ML VIAL 100 ML IV PRN ×3 (08:07→19:00)
[2019-10-19] MEDS: FAMOTIDINE 20 MG/2 ML VIAL IV SCH ×2 (09:03→19:39)
[2019-10-19] MEDS: MULTIVITAMINS/MINERALS TAB PO SCH (09:03)
[2019-10-19] MEDS: ACETAZOLAMIDE 250 MG TAB NG SCH ×2 (09:03→19:39)
[2019-10-19] MEDS: METOPROLOL TARTRATE 25 MG TAB PO SCH ×2 (09:03→19:39)
[2019-10-19] MEDS: ASCORBIC ACID 500 MG TAB PO SCH ×2 (09:03→19:40)
[2019-10-19] MEDS: CHOLECALCIFEROL 1,000 UNIT TAB PO SCH (09:03)
[2019-10-19] MEDS: ZINC SULFATE 220 MG CAP PO SCH (09:03)
[2019-10-19] MEDS: BALSAM PERU/CASTOR OIL 60 GM OINT...G. TP SCH (09:03)
[2019-10-19] MEDS: PROPOFOL IV EMULSION 10MG/ML 100 ML IV PRN ×2 (09:50→19:50)
[2019-10-19] MEDS: FENTANYL 2000MCG/NS 250 250 ML IV PRN ×3 (09:51→20:00)
[2019-10-19 09:59] LABS: EOSINOPHILS % (MANUAL) 9 % (0-7); LYMPHOCYTES % (MANUAL) 6 % (19-48); MONOCYTES % (MANUAL) 4 % (3.4-9.0); NEUTROPHILS % (MANUAL) 81 % (40-74)
--- NOTE | 2019-10-19 11:46 | Progress Note ---
DATE: SUBJECTIVE: The patient in the prone position. He is scheduled to be switched back to supine position shortly. He is on pressure control at a rate of 32 with a PEEP of 6 and pressure above PEEP of 30. His FiO2 is set at 50%. He remains on Lasix drip. He remains on fentanyl, Versed, and Nimbex. PHYSICAL EXAMINATION: VITAL SIGNS: The patient is afebrile. The blood pressure is 147/71, saturations 99% on the above settings. HEENT: Shows no facial swelling or erythema. LYMPHATIC: Shows no submandibular, cervical, or supraclavicular adenopathy. CARDIAC: Reveals regular rate and rhythm with normal S1 and S2. LUNGS: Auscultation of lungs reveals crackles at the bases. There is no wheezing. ABDOMEN: Soft, nontender. There is no rebound or guarding. EXTREMITIES: Shows no leg edema or calf tenderness. There is no cyanosis or clubbing. SKIN: Shows no rashes. NEUROLOGICAL: Shows no focal abnormalities. LABORATORY DATA: BUN to creatinine ratio is 11 to 0.52. The other electrolytes are within normal limits. Albumin is 2.5. The white blood cell count is 12 and hemoglobin is 8. The platelet count is 27. IMPRESSION: 1. Acute respiratory failure. 2. Viral pneumonia and coronavirus disease-2019 infection. 3. Anemia secondary to chronic blood loss. 4. Thrombocytopenia. 5. Anasarca. PLAN: 1. Continue Lasix drip. 2. Complete antibiotics. 3. Continue ventilate the patient in the supine position. 4. Continue Versed, fentanyl, and Nimbex. 5. Arrange for tracheostomy early next week. Maximilian Lowry MD [facility]/MODL /[id number]
[2019-10-19] MEDS: CISATRACURIUM BESYLATE 200 MG in SODIUM CHLORIDE 0.9% 250ML 100 ML IV PRN (12:48)
[2019-10-19 13:11] LABS: ABG HCO3 38 mmol/L (22-26); ABG PCO2 70 mmHg (35-45); ABG PH 7.34 (7.35-7.45); ABG PO2 123 mmHg (80-105); ABG TCO2 40
--- NOTE | 2019-10-19 14:16 | NUR ---
HEMATOLOGY/ONCOLOGY PROGRESS NOTE: HPI: Patient remains intubated and sedated, in COVID ICU. Events noted, supine as tolerated. ROS: 14 point ROS unable to obtain secondary to patient intubated. PHYSICAL EXAM: Vitals: Reviewed as per EMR. Temp: 99.0degF HR: 127 RR 30 BP 113/51 PE not performed due to COVID-19 contact precautions. LABORATORY/RADIOLOGY DATA: Reviewed per EMR. ASSESSMENT AND PLAN: Mr. Miles is a 44-year-old male with past medical history of hypertension who was admitted on 08/24/2019 due to cough and fever. Patient was found to be positive for COVID-19. Intubated due to worsening respiratory status. Patient has been treated with full-dose Lovenox since 09/08/19. Has required PRBC previously during admission. Patient now with dropping platelet count and recurrent anemia requiring PRBC transfusion. Hematology/Oncology has been consulted to assist with the management. 1. Thrombocytopenia: Likely secondary to consumption for infection. DIC panel showed no coagulopathy, elevated fibrinogen, does not appear DIC. Acute hepatitis panel negative. Abdominal US without evidence of liver cirrhosis or splenomegaly. HIT panel negative on 09/15/2019. Repeat DIC panel does not appear DIC with elevated fibrinogen level. Platelet now trending up to 207,000. THROMBOCYTOPENIA RESOLVED. Continue on Lovenox 40mg sq BID. can move to full dose 1mg/kg BID if clear by other teams. Monitor closely. 2. Anemia: Anemia panel appears mixed picture AOCD + RODRIGUEZ with noted low B12 level. Macrocytosis probably combination of B12 deficiency and possibly also related to bone marrow suppression from viral infection. Ferritin mildly elevated, likely as acute phase reactant. Repeat ferritin significantly more elevated hold IV iron. Reticulocyte count and LDH mildly elevated, haptoglobin elevated, does not appear hemolysis. S/p multiple PRBC transfusions, last on 10/12/2019. Hemoglobin slightly down, CBC in the morning. Monitor closely. Transfuse if hemoglobin < 7. 3. COVID-19 PNA: In the ICU, pharmacologically sedated and intubated with weaning off vent as tolerated. On TPN. Undergoing intermittent proning. Blood cultures final negative. Pneumocystis carinii smear negative. Sputum culture with gram negative bacilli. Gram stain with Pseudomonas Aeruginosa. Leukocytosis improving. Fungal cultures pending. CXR revewed. Off antibiotics. Pulmonary and infectious disease on board. 4. Melena/ileus/abd distention: On Pepcid IV q12h. Improved. On TFs with nutrition on board. 5. Fluid overload/oligoanuria: On diuresis, monitor UOP per Nephrology on board. 6. DVT proph: Continue on Lovenox 40mg sq BID. 7. GOC: Trach on hold per Pulmonary for now. Above plan discussed with Dr. Lona Martinez. Thank you for the consult. I will be available. Please call with questions.
--- NOTE | 2019-10-19 16:38 | Progress Note ---
DATE: 10/19/2019 Nephrology Followup Note SUBJECTIVE: The patient's position being switched from prone to supine. Remains on a ventilator with FiO2 now at 50% and PEEP of 30. On IV Lasix infusion at 10 mg/hour. OBJECTIVE: VITAL SIGNS: Stable. Blood pressure 140/71. Saturation 99% on above settings. Intake and output nearly equal in the last 24 hours. NECK: Without jugular venous distention. CARDIAC: Regular rate and rhythm with normal S1, S2. LUNGS: Bilateral air entry to mechanical breaths. No wheezing. ABDOMEN: Soft, nondistended. EXTREMITIES: Without leg edema or cyanosis. NEUROLOGIC: No focal abnormalities. LABORATORY DATA: BUN and creatinine remain normal. Potassium lower at 3.2, bicarb 36. Sodium 140. IMPRESSION: 1. Hypokalemia, secondary to continued loop diuretics. Continue supplemental potassium at 40 mEq through feeding tube q.i.d. Also, continue to supplement as needed with IV potassium. 2. Fluid overload, responding to IV Lasix infusion. Adjust dosage as desired by ICU team. 3. Preserved renal function. 4. Coronavirus disease-19 pneumonia. Marcos Marsh MD [facility]/MODL /[id number]
[2019-10-19] MEDS: ROCURONIUM BROMIDE 1,250 MG in SODIUM CHLORIDE 0.9% 250ML 125 ML IV SCH (19:40)
--- NOTE | 2019-10-19 19:59 | Progress Note ---
DATE: 10/19/2019 CONSULTANTS: 1. Dr. Lowry, electric shovel operator. 2. Dr. Maguire, Infectious Disease. 3. Dr. Casas, Cardiology. 4. Dr. Roger, Nephrology. SUBJECTIVE: No events overnight, remains intubated and sedated in supine position. PHYSICAL EXAMINATION: VITAL SIGNS: Temperature 98.0, pulse is 134, respirations 30, blood pressure 155/71, pulse ox is 94 on vent. GENERAL: Sedated and intubated. HEENT: Normocephalic, atraumatic. LUNGS: Decreased breath sounds. CARDIOVASCULAR: Tachycardia. Normal S1 and S2. ABDOMEN: Soft. MUSCULOSKELETAL: Generalized edema. NEUROLOGIC: Sedated. SKIN: Dry with multiple pressure ulcers. LABORATORY DATA: WBC 12.01, hemoglobin 8, hematocrit 26.7, platelets 207. Sodium 140, potassium 3.2. BUN 11, creatinine 0.52. Estimated GFR is greater than 60. AST 11, ALT 13. Blood gases. ABG, pH is 7.34, pCO2 of 70, PO2 of 123, bicarb 38. IMPRESSION: 1. Acute respiratory failure due to coronavirus disease 2019 pneumonia. Remains intubated and sedated in supine position and management per electric shovel operator. Leukocytosis, improving, off antibiotics per ID. 2. Vfefs-vx-pcsguny anemia. Status post 5 units PRBC. Hemoglobin is stable at 8.0. We will continue to monitor closely. 3. Thrombocytopenia, resolved. Hematology on the case. 4. Hypokalemia. Potassium 3.2. Replace. 5. Anasarca. Diuretics per Renal. 6. Leukocytosis. Sputum culture is positive for Pseudomonas aeruginosa. Leukocytosis is improving off antibiotics per ID. WBC 12. 7. Tachycardia. Continue on beta-blockers per Cardiology. 8. Obesity. 9. Deep venous thrombosis prophylaxis. Continue Lovenox 40 mg subcu. PLAN: To continue current treatment, diuretics, and bed management with supportive therapy. Dictated by SNEHAL Laguerre Taylor Aparicio MD MY/MODL /[id number]
--- NOTE | 2019-10-19 20:45 | NUR ---
Pt proned Addendum: 10/19/19 at 2115 by Stephanie Alvarez RT Amended: Links added.
[2019-10-20] VITALS (24 sets, daily range): BP systolic 94–170; BP diastolic 52–84
[2019-10-20] MEDS: MIDAZOLAM HCL 5MG/ML 10ML VIAL 100 ML IV PRN ×4 (00:30→19:44)
[2019-10-20] MEDS: SUCRALFATE 1 GM/10 ML SUSP NG SCH ×4 (00:30→17:56)
[2019-10-20] MEDS: POTASSIUM CHLORIDE 20MEQ/15ML UDC NG SCH ×4 (00:30→17:56)
[2019-10-20] MEDS: EYE LUBRICANT OPTH OINT 3.5GM TUBE OP SCH ×4 (00:30→17:56)
[2019-10-20] MEDS: FENTANYL 2000MCG/NS 250 250 ML IV PRN ×2 (02:19→13:24)
[2019-10-20] MEDS: PROPOFOL IV EMULSION 10MG/ML 100 ML IV PRN ×3 (02:26→23:20)
[2019-10-20] MEDS: FUROSEMIDE INJ 100 MG in SODIUM CHLORIDE 0.9% 100 ML 90 ML IV SCH ×2 (03:48→17:00)
[2019-10-20 04:36] LABS: BASOPHILS # (AUTO) 0.1 (0.0-0.1); BASOPHILS % 0.4 % (0.0-1.0); EOSINOPHILS # (AUTO) 1.3 (0.0-0.4); EOSINOPHILS % 6.9 % (0.0-6.0); HEMATOCRIT 25.4 % (38.2-49.6); HEMOGLOBIN 7.9 g/dL (14.0-18.0); LYMPHOCYTES # (AUTO) 0.7 (1.0-3.2); LYMPHOCYTES % 3.7 % (18.0-39.1); MEAN CORPUSCULAR HEMOGLOBIN 28.1 pg (28-32); MEAN CORPUSCULAR HGB CONC 31.1 g/dL (31-35); MEAN CORPUSCULAR VOLUME 90.4 fL (81-99); MONOCYTES # (AUTO) 0.6 (0.2-0.8); MONOCYTES % 3.3 % (4.4-11.3); NEUTROPHILS # (AUTO) 15.4 (2.1-6.9); NEUTROPHILS % 84.2 % (38.7-80.0); PLATELET COUNT 230 x10e3/uL (140-360); RED BLOOD COUNT 2.81 x10e6/uL (4.3-5.7); RED CELL DISTRIBUTION WIDTH 14.7 % (11.7-14.4)
[2019-10-20 05:00] LABS: ALANINE AMINOTRANSFERASE 11 IU/L (0-55); ALBUMIN 2.6 g/dL (3.5-5.0); ALBUMIN/GLOBULIN RATIO 0.6 (0.8-2.0); ALKALINE PHOSPHATASE 137 IU/L (40-150); ANION GAP 12.5 mmol/L (8-16); BLOOD UREA NITROGEN 12 mg/dL (7-26); BUN/CREATININE RATIO 22 (6-25); CALCIUM 8.7 mg/dL (8.4-10.2); CARBON DIOXIDE 31 mmol/L (22-29); CHLORIDE 98 mmol/L (98-107); CREATININE, SERUM 0.54 mg/dL (0.72-1.25); EST GLOMERULAR FILTRATION RATE > 60 ML/MIN (60-); GLUCOSE 99 mg/dL (74-118); POTASSIUM 3.5 mmol/L (3.5-5.1); SODIUM 138 mmol/L (136-145)
[2019-10-20] MEDS: ENOXAPARIN SOD INJ 40 MG/0.4 ML SYR SC SCH ×2 (05:24→17:56)
[2019-10-20] MEDS: CHOLECALCIFEROL 1,000 UNIT TAB PO SCH (08:23)
[2019-10-20] MEDS: ZINC SULFATE 220 MG CAP PO SCH (08:23)
[2019-10-20] MEDS: MULTIVITAMINS/MINERALS TAB PO SCH (08:23)
[2019-10-20] MEDS: FAMOTIDINE 20 MG/2 ML VIAL IV SCH ×2 (08:23→21:18)
[2019-10-20] MEDS: ASCORBIC ACID 500 MG TAB PO SCH ×2 (08:23→21:19)
[2019-10-20] MEDS: METOPROLOL TARTRATE 25 MG TAB PO SCH ×2 (08:23→21:19)
[2019-10-20] MEDS: BALSAM PERU/CASTOR OIL 60 GM OINT...G. TP SCH (08:23)
[2019-10-20] MEDS: ACETAZOLAMIDE 250 MG TAB NG SCH ×2 (08:23→21:18)
--- NOTE | 2019-10-20 11:43 | Progress Note ---
DATE: Pulmonary Critical Care SUBJECTIVE: The patient is currently on a pressure control mode of ventilation. His PEEP is set at 8 and his pressure above PEEP is 26. His FiO2 is set at 40% and his respiratory rate is set at 28. PHYSICAL EXAMINATION: HEENT: Shows no facial swelling or erythema. There is an oral endotracheal tube. LYMPHATIC: Shows no submandibular, cervical, or supraclavicular adenopathy. CARDIAC: Reveals regular rate and rhythm with normal S1 and S2. LUNGS: Auscultation of lungs reveals decreased breath sounds at the bases. There is no wheezing. ABDOMEN: Soft and nontender. There is no rebound or guarding. EXTREMITIES: Shows no leg edema or calf tenderness. There is no cyanosis or clubbing. SKIN: Shows no rashes. LABORATORY DATA: White blood cell count is 18.3 and the hemoglobin is 7.9. The platelet count is 230. The BUN to creatinine ratio is normal. The other electrolytes are within normal limits. The albumin is 2.6. RADIOGRAPHIC DATA: Chest x-ray shows bilateral infiltrates. IMPRESSION: 1. Acute respiratory failure. 2. Viral pneumonia and COVID-19 infection. 3. Anemia secondary to chronic blood loss. 4. Thrombocytopenia. 5. Anasarca. PLAN: 1. Continue Lasix drip. 2. Continue antibiotics. 3. Continue pressure control. 4. Continue Versed and fentanyl. 5. Arrange for tracheostomy. Maximilian Lowry MD [facility]/REYESL /[id number]
--- NOTE | 2019-10-20 14:20 | NUR ---
infectious disease progress note. October 20, 2019. patient was seen and examined chart reviewed discussed with medical team. No new events. But remains intubated sedated on several Medications and an event he patient is currently on a pressure control mode of ventilation. His PEEP is set at 8 and his pressure above PEEP is 26. His FiO2 is set at 40% and his respiratory rate is set at 28. PHYSICAL EXAMINATION: HEENT: Shows no facial swelling or erythema. There is an oral endotracheal tube. LYMPHATIC: Shows no submandibular, cervical, or supraclavicular adenopathy. CARDIAC: Reveals regular rate and rhythm with normal S1 and S2. LUNGS: Auscultation of lungs reveals decreased breath sounds at the bases. There is no wheezing. ABDOMEN: Soft and nontender. There is no rebound or guarding. EXTREMITIES: Shows no leg edema or calf tenderness. There is no cyanosis or clubbing. SKIN: Shows no rashes. LABORATORY DATA: White blood cell count is 18.3 and the hemoglobin is 7.9. The platelet count is 230. The BUN to creatinine ratio is normal. The other electrolytes are within normal limits. The albumin is 2.6. RADIOGRAPHIC DATA: Chest x-ray shows bilateral infiltrates. IMPRESSION: 1. Acute respiratory failure. 2. Viral pneumonia and COVID-19 infection. 3. Anemia secondary to chronic blood loss. 4. Thrombocytopenia. 5. Anasarca. PLAN: continue with plan of care was ordered no new recommendation from infectious disease point review discussed with medical team answered all their questions
--- NOTE | 2019-10-20 16:22 | NUR ---
HEMATOLOGY/ONCOLOGY PROGRESS NOTE: HPI: Patient remains intubated and sedated, in COVID ICU. Planning for trach placement ROS: 14 point ROS unable to obtain secondary to patient intubated. PHYSICAL EXAM: Vitals: Reviewed as per EMR. Temp: 99.3degF HR: 110 RR 28 BP 154/84 PE not performed due to COVID-19 contact precautions. LABORATORY/RADIOLOGY DATA: Reviewed per EMR. ASSESSMENT AND PLAN: Mr. Miles is a 44-year-old male with past medical history of hypertension who was admitted on 08/24/2019 due to cough and fever. Patient was found to be positive for COVID-19. Intubated due to worsening respiratory status. Patient has been treated with full-dose Lovenox since 09/08/19. Has required PRBC previously during admission. Patient now with dropping platelet count and recurrent anemia requiring PRBC transfusion. Hematology/Oncology has been consulted to assist with the management. 1. Thrombocytopenia: Likely secondary to consumption for infection. DIC panel showed no coagulopathy, elevated fibrinogen, does not appear DIC. Acute hepatitis panel negative. Abdominal US without evidence of liver cirrhosis or splenomegaly. HIT panel negative on 09/15/2019. Repeat DIC panel does not appear DIC with elevated fibrinogen level. Platelet now trending up to 230,000. THROMBOCYTOPENIA RESOLVED. Continue on Lovenox 40mg sq BID. Can move to full dose 1mg/kg BID if clear by other teams. Monitor closely. 2. Anemia: Anemia panel appears mixed picture AOCD + RODRIGUEZ with noted low B12 level. Macrocytosis probably combination of B12 deficiency and possibly also related to bone marrow suppression from viral infection. Ferritin mildly elevated, likely as acute phase reactant. Repeat ferritin significantly more al vated hold IV iron. Reticulocyte count and LDH mildly elevated, haptoglobin elevated, does not appear hemolysis. S/p multiple PRBC transfusions, last on 10/12/2019. Hemoglobin stable. Monitor closely. Transfuse if hemoglobin < 7. 3. COVID-19 PNA: In the ICU, pharmacologically sedated and intubated with weaning off vent as tolerated. On TPN. Undergoing intermittent proning. Blood cultures final negative. Pneumocystis carinii smear negative. Sputum culture with gram negative bacilli. Gram stain with Pseudomonas Aeruginosa. Leukocytosis improving. Fungal cultures pending. CXR revewed 10/17. Off antibiotics. Pulmonary and infectious disease on board. 4. Melena/ileus/abd distention: On Pepcid IV q12h. Improved. On TFs with nutrition on board. 5. Fluid overload/oligoanuria: On diuresis, monitor UOP per Nephrology on board. 6. DVT proph: Continue on Lovenox 40mg sq BID. 7. GOC: Trach planning this week per Pulmonary for now. Above plan discussed with Dr. Lona Martinez. Thank you for the consult. I will be available. Please call with questions.
[2019-10-20 18:38] LABS: ABG HCO3 34 mmol/L (22-26); ABG PCO2 39 mmHg (35-45); ABG PH 7.54 (7.35-7.45); ABG PO2 152 mmHg (80-105); ABG TCO2 35
--- NOTE | 2019-10-20 19:10 | Progress Note ---
DATE: 10/20/2019 CONSULTANTS: 1. Dr. Lowry, quality assurance advisor. 2. Dr. Maguire, Infectious Disease. 3. Dr. Casas, Cardiology. 4. Dr. Roger, Nephrology. SUBJECTIVE: The patient remains stable, intubated and sedated, in prone position. No events overnight. PHYSICAL EXAMINATION: VITAL SIGNS: Temperature 99.1, pulse 108, respirations 28, blood pressure 111/61, and pulse ox is 99% on the vent. GENERAL: Sedated and intubated. LUNGS: Decreased breath sounds. CARDIOVASCULAR: Tachycardia. Normal S1 and S2. ABDOMEN: Soft. MUSCULOSKELETAL: Generalized edema. NEUROLOGIC: Sedated. SKIN: Dry with a pressure ulcer on sacrum and toes. LABORATORY DATA: WBC 18.32, hemoglobin 7.9, hematocrit 25.4, and platelet 230. Sodium 138, potassium 3.5, BUN 12, creatinine 0.54, estimated GFR greater than 60, AST 13, and ALT 11. IMPRESSION: 1. Acute respiratory failure due to coronavirus disease-19 pneumonia. Remains sedated and intubated, in prone position. Vent management per quality assurance advisor. Currently off antibiotics per ID. 2. Acute on chronic anemia. Hemoglobin is stable at 7.9. We will continue to monitor. 3. Thrombocytopenia, resolved. Hematology on the case. 4. Hypokalemia. Resolved. 5. Anasarca. Diuretics per Renal. 6. Leukocytosis. WBC is 18.32. We will defer to ID. 7. Tachycardia. Continue beta blockers per Cardiology. 8. Obesity. 9. Deep vein thrombosis prophylaxis. Continue Lovenox subcu. PLAN: To continue current treatment, supportive therapy. Discussed case with Dr. Gagnon, quality assurance advisor. Dictated by SNEHAL Laguerre Taylor Aparicio MD [facility]/MODL /[id number]
--- NOTE | 2019-10-20 19:25 | Progress Note ---
DATE: 10/19/2019 CONSULTANTS: 1. Dr. Lowry, comb capper. 2. Dr. Maguire, Infectious Disease. 3. Dr. Casas, Cardiology. 4. Dr. Roger, Nephrology. DICTATION ENDS HERE Dictated by SNEHAL Laguerre Yiching Nathen Aparicio MD [facility]/MODL /[id number]
--- NOTE | 2019-10-20 19:26 | Progress Note ---
DATE: 10/19/2019 SUBJECTIVE: This is day #56. The patient remains in intensive care unit. He is intubated, sedated and events noted. PHYSICAL EXAMINATION: GENERAL: Currently intubated, sedated. HEENT: Normocephalic. NECK: Supple. CHEST: Crackles bilateral. HEART: S1-S2. ABDOMEN: Soft, sounds present. EXTREMITIES: No edema. IMPRESSION: Respiratory failure, COVID-19. Overall, still very ill, but continued supportive care is ordered. Continue observing for aspiration pneumonia. The patient is currently off antibiotic, back on October 11. He grows Pseudomonas aeruginosa. His white count today is down to 12.01. We will observe the patient for now. Continue with supportive care. Aspiration precaution. MD MAYURI Taylor/ANGELA /[id number]
--- NOTE | 2019-10-20 19:30 | Progress Note ---
DATE: 10/20/2019 CARDIOLOGY PROGRESS NOTE: SUBJECTIVE: Mr. Miles remains intubated and sedated. OBJECTIVE: VITAL SIGNS: Temperature 99.8, heart rate 100, blood pressure 166/79, respiratory rate 28, O2 saturation 100%. GENERAL: Intubated, sedated from position. NECK: Supple. CHEST: With rales and decreased breath sounds. CARDIOVASCULAR: Regular rate and rhythm. Normal S1, S2. ABDOMEN: Bowel sounds positive. EXTREMITIES: Lower extremities with 1+ edema. Upper extremities without edema. CARDIOVASCULAR MEDICATIONS: Reviewed. 1. Furosemide 10 mg/hour drip has been held. 2. Metoprolol tartrate 25 mg every 12 hours. 3. Acetazolamide 250 mg every 12 hours. 4. KCl 40 mEq q.6 hours. 5. Lovenox 40 q.12 hours. STUDIES: Reviewed. Sodium 138, potassium 3.5, chloride 98, bicarbonate 31, BUN 12, creatinine 0.5, and glucose 99. White blood cells 18.3, hemoglobin 7.9, and platelets 230. PT 16.5, PTT 37.7, INR 1.3. AST 13, ALT 11, alkaline phosphatase 137. ASSESSMENT AND PLAN: A 44-year-old man presents with acute respiratory failure, COVID-19 infection, community-acquired pneumonia, hypertension, acute diastolic heart failure, anemia. RECOMMEND: The patient's tachycardia into the 140s, improving, off diuretic drip today with diuretic holiday. Overall volume status has improved with vent settings have been gradually weaned, attempting weaning trials of sedation and ventilatory support guided by Pulmonary expertise. Continue rest of cardiovascular medications. John Romero MD [facility]/MODL /[id number]
--- NOTE | 2019-10-20 19:30 | Progress Note ---
DATE: 10/20/2019 Renal Progress Note SUBJECTIVE: Followed for hypokalemia and fluid overload. The patient's potassium is better now. The patient is on 40 mEq q.6 hours of potassium chloride by NG tube. Potassium is 3.5 today. The patient continues to have COVID pneumonia and remains on the ventilator. The patient is on a Lasix drip, responding well. OBJECTIVE: VITAL SIGNS: As noted above. Blood pressure 139/61, 31 heart rate, 108 pulse. LUNGS: Rhonchi bilaterally in all lung quevedo. CARDIOVASCULAR: S1 and S2. No rub. ABDOMEN: Soft. Positive bowel sounds. EXTREMITIES: 1 to 2+ edema. LABORATORY WORKUP: Today, sodium 138, potassium 3.5, bicarb of 31, BUN 12, and creatinine 0.5. IMPRESSION AND PLAN: 1. Hypokalemia. Continue potassium replacement via NG tube. We will also check a magnesium level tomorrow and continue to monitor. 2. Hypertension. Blood pressure is currently stable. Continue to monitor. 3. Volume overload. Continue with Lasix drip 10 mg/hour. We will also consider adding Diamox if has persistent metabolic alkalosis with fluid overload and if has persistent fluid overload, we will also consider adding IV Diuril. MD ERIKA Bocanegra/MODL /[id number]
[2019-10-20] MEDS: ROCURONIUM BROMIDE 1,250 MG in SODIUM CHLORIDE 0.9% 250ML 125 ML IV SCH (21:18)
[2019-10-21] VITALS (25 sets, daily range): BP systolic 97–163; BP diastolic 53–83
[2019-10-21] MEDS: EYE LUBRICANT OPTH OINT 3.5GM TUBE OP SCH ×5 (00:04→23:07)
[2019-10-21] MEDS: POTASSIUM CHLORIDE 20MEQ/15ML UDC NG SCH ×2 (00:04→05:33)
[2019-10-21] MEDS: SUCRALFATE 1 GM/10 ML SUSP NG SCH ×5 (00:04→23:07)
[2019-10-21] MEDS: MIDAZOLAM HCL 5MG/ML 10ML VIAL 100 ML IV PRN ×3 (00:44→17:29)
[2019-10-21] MEDS: FUROSEMIDE INJ 100 MG in SODIUM CHLORIDE 0.9% 100 ML 90 ML IV SCH ×3 (02:04→20:21)
[2019-10-21 04:45] LABS: BASOPHILS # (AUTO) 0.1 (0.0-0.1); BASOPHILS % 0.4 % (0.0-1.0); EOSINOPHILS # (AUTO) 1.7 (0.0-0.4); EOSINOPHILS % 7.9 % (0.0-6.0); HEMATOCRIT 32.2 % (38.2-49.6); HEMOGLOBIN 9.4 g/dL (14.0-18.0); LYMPHOCYTES # (AUTO) 0.7 (1.0-3.2); LYMPHOCYTES % 3.5 % (18.0-39.1); MEAN CORPUSCULAR HEMOGLOBIN 27.7 pg (28-32); MEAN CORPUSCULAR HGB CONC 29.2 g/dL (31-35); MONOCYTES # (AUTO) 1.4 (0.2-0.8); MONOCYTES % 6.7 % (4.4-11.3); NEUTROPHILS # (AUTO) 16.7 (2.1-6.9); NEUTROPHILS % 79.6 % (38.7-80.0); PLATELET COUNT 323 x10e3/uL (140-360); RED BLOOD COUNT 3.39 x10e6/uL (4.3-5.7); RED CELL DISTRIBUTION WIDTH 15.1 % (11.7-14.4)
[2019-10-21 05:09] LABS: ALANINE AMINOTRANSFERASE 13 IU/L (0-55); ALBUMIN 2.8 g/dL (3.5-5.0); ALBUMIN/GLOBULIN RATIO 0.5 (0.8-2.0); ALKALINE PHOSPHATASE 149 IU/L (40-150); BLOOD UREA NITROGEN 12 mg/dL (7-26); BUN/CREATININE RATIO 20 (6-25); CALCIUM 9.3 mg/dL (8.4-10.2); CARBON DIOXIDE 30 mmol/L (22-29); CHLORIDE 100 mmol/L (98-107); CREATININE, SERUM 0.61 mg/dL (0.72-1.25); EST GLOMERULAR FILTRATION RATE > 60 ML/MIN (60-); GLUCOSE 108 mg/dL (74-118); MAGNESIUM 2.4 MG/DL (1.3-2.1); PHOSPHORUS 5.9 MG/DL (2.3-4.7); SODIUM 136 mmol/L (136-145)
[2019-10-21] MEDS: ENOXAPARIN SOD INJ 40 MG/0.4 ML SYR SC SCH ×2 (05:33→17:28)
--- NOTE | 2019-10-21 08:19 | NUR ---
PUT NOTARIZED PAPERWORK IN ADVANCED DIRECTIVE SECTION OF CHART FOR [employer].
[2019-10-21] MEDS: ACETAZOLAMIDE 250 MG TAB NG SCH ×2 (08:46→20:20)
[2019-10-21] MEDS: MULTIVITAMINS/MINERALS TAB PO SCH (08:46)
[2019-10-21] MEDS: METOPROLOL TARTRATE 25 MG TAB PO SCH ×2 (08:46→20:21)
[2019-10-21] MEDS: FAMOTIDINE 20 MG/2 ML VIAL IV SCH ×2 (08:46→20:20)
[2019-10-21] MEDS: ZINC SULFATE 220 MG CAP PO SCH (08:47)
[2019-10-21] MEDS: CHOLECALCIFEROL 1,000 UNIT TAB PO SCH (08:47)
[2019-10-21] MEDS: BALSAM PERU/CASTOR OIL 60 GM OINT...G. TP SCH (08:47)
[2019-10-21] MEDS: ASCORBIC ACID 500 MG TAB PO SCH ×2 (08:47→20:21)
--- NOTE | 2019-10-21 08:52 | Diagnostic Imaging Report ---
EXAMINATION: CHEST SINGLE (PORTABLE) INDICATION: CHF COMPARISON: Chest radiograph 10/18/2019 FINDINGS: LINES/TUBES:Support lines and tubes unchanged. LUNGS:The lung volumes are low. Continued interval improvement in right lung multifocal opacities. Left lung multifocal opacities appear essentially unchanged. PLEURA:Small bilateral pleural effusions. No pneumothorax. MEDIASTINUM:The cardiomediastinal silhouette appears unchanged in size and shape. BONES/SOFT TISSUES:No acute osseous injury. ABDOMEN:No free air under the diaphragm. IMPRESSION: Low lung volumes with interval improvement in right lung aeration with persistent multifocal left greater than right airspace opacities. Signed by: Farrah Pierson MD on 10/21/2019 8:49 AM
[2019-10-21 09:27] LABS: ABG HCO3 33 mmol/L (22-26); ABG PCO2 107 mmHg (35-45); ABG PO2 95 mmHg (80-105); ABG TCO2 36
[2019-10-21] MEDS ORDERED: ALBUMIN 25% 12.5GM 50ML 100 ML IV ONE (09:42)
[2019-10-21] MEDS ORDERED: ALBUMIN 25% 25GM 100ML 0.25 GM/ML BTL IV ONE (09:45)
[2019-10-21] MEDS ORDERED: SODIUM BICARBONATE 8.4% SYRING 100 ML ONE (09:59)
[2019-10-21] MEDS ORDERED: ALBUMIN 25% 25GM 100ML 200 ML IV ONE (10:30)
--- NOTE | 2019-10-21 10:38 | Progress Note ---
DATE: 10/21/2019 Renal Progress Note SUBJECTIVE: Followed for hypokalemia, fluid overload. The patient continues on Lasix drip. Potassium is actually shot up to 5 today. Creatinine is 0.6. The patient is nonoliguric, remains on the vent. Chest x-ray consistent with pleural effusion. OBJECTIVE: VITAL SIGNS: Have been noted. The patient on the vent, FiO2 60%. Blood pressure is 111/58. The patient is afebrile. LUNGS: Rales at the bases bilaterally. CARDIOVASCULAR: S1 and S2. Tachycardic. ABDOMEN: Soft. Positive bowel sounds. EXTREMITIES: 1+ edema. LABORATORY DATA: Potassium is 5, BUN 12, and creatinine at 0.6. IMPRESSION AND PLAN: 1. Hypokalemia, resolved. Potassium has shot up now to 5. We will cutback the schedule potassium replacement since the patient is still on Lasix drip. We will continue low dose potassium. 2. Hypertension, stable. 3. Fluid overload, resolving. Continue Lasix drip for now. 4. COVID-19 pneumonia. Plan would be as per critical care. Alex Roger MD [facility]/MODL /[id number]
--- NOTE | 2019-10-21 10:55 | NUR ---
Nutrition Intervention Note RD Recommendation(s) for Physician: - To better meet needs, recommend TF change to Pivot 1.5 with goal rate of 45 ml/hr (to provide 1620 kcal and 102 gm protein). Give 2 packets/day Beneprotein (provides an additional 50 kcal and 12 gm protein). Pt may be fed at goal rate when prone in reverse Trendelenburg position with HOB 10-25 degrees - Water flushes per MD. - If unable to advance TF to goal rate, recommend initiating standard TPN at 42 ml/hr (Dextrose 30%/500 ml, AA10%/500 ml), standard lytes, add MVI, trace, thiamine. (716 kcal, 50 gm protein). Continue TF as tolerated. Addition of TPN to better meet nutritional needs. Plan of Care: RD following, TF rec's, TPN rec's, monitor adequacy and tolerance Nutrition reason for involvement: follow up RD Assessment 10/20: Follow up. Pt remains intubated, sedated, and paralyzed. Propofol stopped yesterday. Pt continues to require intermittent proning. No GI distress, pt having BMs, and TF currently infusing at 30 ml/hr. Noted Phos elevated after KPhos replacement. Plan for trach placement. Chart reviewed. In light of Propofol d/c, updated TF rec's provided. RD to manage TF order per Dr. Lowry. Will continue to monitor. 10/16: Follow up. Chart reviewed. Pt remains intubated and sedated. Pt is in the prone position per chart. Pt remains on Vital AF 1.2 trickle feeding currently at 10 mL/hr Recommended considering TPN if tube feeding rate is unable to be increased. Pt is receiving propofol at 22.6 mL/hr per chart which provides 597 kcal. Will continue to monitor 10/12: Follow up. Pt remains intubated and sedated with Propofol and Versed. Pt paralyzed with Nimbex. Pt now on Levophed, currently at 10 mcg/min. Pt on trickle TF currently, pt with ileus per MD notes. Spoke with Dr. Lowry over the phone, RD recommended considering TPN as pt continues to not meet needs with TF and currently with an ileus. MD stated that he would prefer to utilize the gut for now and will re-evaluate. RD requested Phos and Mg be drawn in case TPN required tomorrow to evaluate for replacements and initiation. Noted afternoon Phos and Mg WNL. Chart reviewed, plan for trach placement. TPN and TF rec's provided. Will continue to monitor. 10/09: Follow up. Chart reviewed. MD note indicates pt is in the supine position. Per documentation, pt is receiving TF at 30mL/hr not meeting kcal or protein needs. Current recommendations remain appropriate recommend increasing rate to 60 mL/hr. Will continue to monitor. 10/05: Follow up. Chart reviewed. Pt remains intubated and was in the supine position overnight. Pt is no receiving propofol at this time. Pts tube feed is at 20 mL/hr per chart not meeting kcal or protein needs. Tube feed recommendations provided. Will continue to monitor. 10/01: Follow up. Pt remains intubated, sedated on Propofol, and paralyzed. Pt requiring to be proned. TF rate decreased to 20 ml/hr currently- not meeting kcal or protein needs. TF rec's provided. Chart reviewed. Will continue to monitor. 09/29: Follow up. Pt remains intubated, sedated on high dose Propofol, and paralyzed. Pt requiring to be in intermittent prone positioning. TF infusing at 35 ml/hr, not meeting protein needs. TF rec's provided. Chart reviewed. Will continue to monitor. 09/25: Follow up. Chart reviewed. Pt remains intubated and sedated. Pt is receiving propofol at 7.8 mL/hr which provides 205 lipid kcal. TF is infusing at 20 mL/hr. Recommend modifying tube feed formula to Vital High Protein at this time. Will continue to monitor. 09/22: Follow up. Pt remains intubated, sedated, and paralyzed. Pt requiring proning. TF infusing at 10 ml/hr and TPN weaned to 20 ml/hr. Chart reviewed. TF and TPN rec's provided pending ability to advance TF. Will continue to monitor. 09/18: Follow up. Chart reviewed. Pt remains intubated and sedated. Pt was started on tube feeding. Last recorded rate was 20 mL/hr this afternoon. Pt continues to receive TPN @ 42 mL/hr. Propofol rate is at 13.4 mL/hr (provides 354 kcal). Recommendations provided. Will continue to monitor 09/15: Follow up. Pt remains intubated, sedated on Propofol at 19.6 ml/hr, and paralyzed. Pt continues on TPN at 42 ml/hr, not meeting needs. Pt continues with persistent ileus and is receiving enemas and suppositories. Pt requiring daily proning 2/2 respiratory status. TF order remains, recommend NPO for now. TPN goal rec's provided, continues at 42 ml/hr. Chart reviewed. Will continue to monitor. 09/11: Follow up. Chart reviewed. Pt remains intubated and sedated. Pt is receiving 30 mL/hr of propofol per documentation which provides 792 lipid kcal. Tube feeding has been held due to abdominal distention and pt was started on TPN @ 42 mL/hr today. MD note indicates pt has an ileus. Recommendations provided. Will continue to monitor. 09/07: Follow up. Chart reviewed. Pt remains intubated and sedated. Pt is receiving 23.6 mL/hr of propofol per documentation which provides 623 lipid kcal. TF was at 20 mL/hr last night per chart. Per MD note, pts abdomen is distended and has not had a BM. Will continue to monitor. 09/04: Follow up. Pt remains intubated and sedated. Pt is receiving 9 mL/hr of propofol per documentation, which provides 238 lipid kcal. TF was at 20 mL/hr per chart yesterday. No additional administration rate is available. Will continue to monitor. 09/02: Follow up. Pt remains intubated, paralyzed, and sedated on Propofol and Versed. Pt requiring proning. TF rate at 10 ml/hr per TF documentation yesterday- inadequate EN currently, no additional EN administration available per chart. Recommend continuing EN while pt is proned by placing them in reverse Trendelenburg position. If unable to advance TF to goal rate, recommend considering PN. Chart reviewed. Will continue to monitor. 08/29: Initial encounter with patient. Pt is sedated and orally intubated. Pt was not able to provide a nutrition Hx at the time of visit. Unable to observe oral cavity or perform a nutrition focused physical exam. Jevity 1.2 infusing at 20ml hr with a goal of 50ml/hr. Propofol provides 1.1kcal/ml EN provides 576 kcals, 26.64g of protein, and 387.36ml of free H2O Principal Problems/Diagnoses: CoVID 19 pneumonia PMH: No significant medical Hx, overweight/obesity GI: round, firm abdomen, last recorded BM 10/19 x 2 Skin: stage 2 right ear pressure ulcer, penis ischemic edema, bilateral knees- ischemic edema, scrotal abrasion, anasarca and +2 general edema Labs: 10/20: Na 136, K 5, BUN 12, Cr 0.6, Gluc 108, Phos 5.9, Mg 2.4, POC Gluc 103-115 10/16: Na 143, K 3.4, BUN 10, Cr 0.51, Glu 101 10/12: Na 139, K 4.1, BUN 20, Cr 0.57, Cl 103, CO2 25, Gluc 135, Phos 3.3, Mg 1.8 10/09: Na 140, K 3.4, BUN 15, Cr 0.44, Glu 103 10/05: Na 139, K 3.3, BUN 15, Cr 0.42, Glu 113, Ca 8.2 10/01: Na 139, K 4, BUN 12, Cr 0.59, Gluc 141, POC Gluc 127-175 09/29: Na 138, K 2.9, BUN 5, Cr 0.39, Gluc 87, POC 107-116 Meds: zinc sulfate, vitamin C, pepcid, vitamin D, MVI with minerals, KPhos IVPB IVF/Drips: Rocuronium, Fentanyl, Furosemide Ht: 67 in. Wt: 203.56 lbs (10/20) 156 lbs- questionable wt (10/16) 206 lbs (10/12) 212 lbs (10/09) 236 lbs (10/05) 251 lbs (09/28) 253.5 lbs (09/25) 254.31 lb, 200.44lbs (08/29) - admit wt BMI: 31.4kg/m2 (weight used- 200 lbs) IBW: 148 lbs Malnutrition Evaluation (10/17/2019) Pt currently meets criteria for mild protein calorie malnutrition. Intake adequacy: Moderate- TF not meeting needs, Propofol providing additional kcal Wt loss: pt with wt fluctuations since admit related to fluid Fat loss: JACOB per current isolation protocol- unable to complete NFPE, BMI indicative of adequate fat stores Muscle loss: JACOB per current isolation protocol- unable to complete NFPE Edema: Mild- 1-2+ leg edema per MD note Functional status: JACOB due to intubation Nutrition Prescription (Diet Order): Vital AF at 20 ml/hr - infusing at 30 mL/hr (864 kcal and 54 gm protein). Pt received 720 ml of TF yesterday and an additional 446 lipid kcal from Propofol= 1310 kcal. Estimated Nutritional Needs: 8149-7660 calories/day (22-25 kcal/kg IBW) 101-135 g protein/day (1.5-2 g pro/kg IBW) Diet Adequacy: not meeting calorie needs, Not meeting protein needs Diet Education Needs Assessment: Diet education not indicated. Nutrition Care Level: high- not meeting needs Nutrition Diagnosis: Inadequate energy and protein intake related to intubation as evidenced by pt requiring alternative means of nutrition. Goal: Patient will meet 75-100% of estimated needs by follow up Progress: goal not met Interventions: Composition, Rate, Route, Recommended modifications Monitoring/Evaluation: Total energy intake, Total protein intake, Formula/Solution, Prescription medication, Weight change Signed: Mary Rodney RD, LD, CNSC
[2019-10-21] MEDS: FENTANYL 2000MCG/NS 250 250 ML IV PRN ×2 (11:00→17:32)
--- NOTE | 2019-10-21 11:03 | Progress Note ---
DATE: Pulmonary Critical Care Progress Note SUBJECTIVE: The patient is currently in the supine position. He was switched to the supine position about 3 hours ago. He now has low tidal volumes on the ventilator. His pressure control above PEEP was increased to 30 and his respiratory rate was increased to 32 in order to correct for respiratory acidosis. He had some low blood pressure. His Lasix was held and he received albumin. PHYSICAL EXAMINATION: VITAL SIGNS: The blood pressure is 97/56 and saturation is 99% on the above settings. He is on a pressure control at a rate of 32 with a pressure control of 30 and a PEEP of 6. His FiO2 is set at 70%. HEENT: Shows no facial swelling or erythema. There is an oral endotracheal tube. He has a right IJ line. The site looks clean. There is no drainage or swelling. CARDIAC: Reveals a regular rate and rhythm with normal S1 and S2. LUNGS: Auscultation of lungs reveals rhonchorous breath sounds bilaterally. There is no wheezing. ABDOMEN: Soft and nontender. There is no rebound or guarding. EXTREMITIES: Shows no leg edema or calf tenderness. There is no cyanosis or clubbing. SKIN: Shows no rashes. NEUROLOGICAL: Shows no focal abnormalities. LABORATORY DATA: White blood cell count is 21.01, hemoglobin 9.4. The platelet count is 323. The BUN to creatinine ratio is 12 to 0.61. The sodium is 136. The albumin is 2.8. Potassium is 5, and the carbon dioxide is 30. BUN to creatinine ratio is 12 to 0.61. Albumin is 2.8. Blood gases; 7.1, 107, 95 and 33. RADIOGRAPHIC DATA: Chest x-ray shows bilateral infiltrates. IMPRESSION: 1. Acute respiratory failure. 2. Viral pneumonia and COVID-19 infection. 3. Anasarca and volume overload. 4. Anemia secondary to chronic blood loss. 5. Thrombocytopenia. 6. Decubitus skin breakdown. PLAN: 1. The patient's minute ventilation has been increased. We will repeat ABG at [address]. 2[address] the patient back in the prone position. 3. The patient received two amps of bicarb. 4. Continue to monitor blood pressure. 5. Restart Lasix once hemodynamics have improved. 6. Continue current antibiotics and monitor white blood cell count. 7. Repeat cultures. Greater than 35 minutes in direct critical care time. MD SAMINA Angel/ANGELA /[id number]
[2019-10-21] MEDS: PROPOFOL IV EMULSION 10MG/ML 100 ML IV PRN (11:08)
--- NOTE | 2019-10-21 12:04 | Progress Note ---
DATE: 10/21/2019 Cardiology Progress Note SUBJECTIVE: Remains intubated and sedated. OBJECTIVE: VITAL SIGNS: Temperature 98.7, heart rate 140, blood pressure 106/60, respiratory rate 16, and O2 saturation 97%. GENERAL: Intubated and sedated. NECK: Supple. CHEST: With rales and decreased breath sounds. CARDIOVASCULAR: Regular rate and rhythm. Normal S1 and S2. ABDOMEN: Soft. Bowel sounds positive. EXTREMITIES: 1+ edema. CARDIOVASCULAR MEDICATIONS: Reviewed. Metoprolol tartrate 25 mg every 12 hours, furosemide 10 mg/hour IV, and potassium chloride. STUDIES: Reviewed. Sodium 136, potassium 5, and creatinine 0.6. White blood cells 21, hemoglobin 9.4, and platelets 323. ASSESSMENT AND PLAN: A 44-year-old man with COVID-19 infection, acute respiratory failure, community-acquired pneumonia, hypertension, acute diastolic heart failure, and anemia. RECOMMEND: 1. Continue diuresis and replete electrolytes as needed. 2. Monitor H and H. 3. Continue antihypertensive strategy. MD OPAL Del Valle/REYESL /[id number]
--- NOTE | 2019-10-21 13:05 | NUR ---
infectious disease progress note Patient seen and examined chart reviewed October 21, 2019 Discussed with medical team Please refer to the orders Patient remained in intensive care unit on a ventilator intubated sedated SUBJECTIVE: The patient is currently in the supine position. He was switched to the supine position about 3 hours ago. He now has low tidal volumes on the ventilator. His pressure control above PEEP was increased to 30 and his respiratory rate was increased to 32 in order to correct for respiratory acidosis. He had some low blood pressure. His Lasix was held and he received albumin. PHYSICAL EXAMINATION: VITAL SIGNS: The blood pressure is 97/56 and saturation is 99% on the above settings. He is on a pressure control at a rate of 32 with a pressure control of 30 and a PEEP of 6. His FiO2 is set at 70%. HEENT: Shows no facial swelling or erythema. There is an oral endotracheal tube. He has a right IJ line. The site looks clean. There is no drainage or swelling. CARDIAC: Reveals a regular rate and rhythm with normal S1 and S2. LUNGS: Auscultation of lungs reveals rhonchorous breath sounds bilaterally. There is no wheezing. ABDOMEN: Soft and nontender. There is no rebound or guarding. EXTREMITIES: Shows no leg edema or calf tenderness. There is no cyanosis or clubbing. SKIN: Shows no rashes. NEUROLOGICAL: Shows no focal abnormalities. LABORATORY DATA: White blood cell count is 21.01, hemoglobin 9.4. The platelet count is 323. The BUN to creatinine ratio is 12 to 0.61. The sodium is 136. The albumin is 2.8. Potassium is 5, and the carbon dioxide is 30. BUN to creatinine ratio is 12 to 0.61. Albumin is 2.8. Blood gases; 7.1, 107, 95 and 33. RADIOGRAPHIC DATA: Chest x-ray shows bilateral infiltrates. IMPRESSION: 1. Acute respiratory failure. 2. Viral pneumonia and COVID-19 infection. 3. Anasarca and volume overload. 4. Anemia secondary to chronic blood loss. 5. Thrombocytopenia. 6. Decubitus skin breakdown. continue supportive care as ordered continue with local care as ordered prognosis remains extremely poor this is day #58 of hospitalization
[2019-10-21] MEDS: CEFEPIME 1GM/NS 0.9% 50 ML 50 ML IV SCH ×2 (13:13→23:07)
[2019-10-21 14:59] LABS: BILIRUBIN,URINE NEGATIVE (NEGATIVE); CLARITY,URINE SL CLOUDY (CLEAR); COLOR,URINE YELLOW (YELLOW); KETONES,URINE NEGATIVE (NEGATIVE); LEUKOCYTE ESTERASE ,URINE NEGATIVE (NEGATIVE); NITRITE,URINE NEGATIVE (NEGATIVE); PROTEIN,URINE DIPSTICK 2+ (NEGATIVE); URINE UROBILINOGEN 0.2 mg/dL (0.2 - 1)
[2019-10-21 15:03] LABS: AMORPHOUS SEDIMENT,URINE MANY (FEW); BACTERIA,URINE MODERATE /HPF; EPITHELIAL CELLS,URINE FEW /LPF
[2019-10-21 16:14] LABS: ABG PH 7.25 (7.35-7.45)
[2019-10-21 16:15] LABS: ABG HCO3 35 mmol/L (22-26); ABG PCO2 79 mmHg (35-45); ABG PO2 174 mmHg (80-105); ABG TCO2 37
[2019-10-21] MEDS: TOBRAMYCIN 40 MG/ML 2ML VIAL NEB SCH (19:39)
[2019-10-21] MEDS: ROCURONIUM BROMIDE 1,250 MG in SODIUM CHLORIDE 0.9% 250ML 125 ML IV SCH (20:20)
--- NOTE | 2019-10-21 20:41 | Progress Note ---
DATE: 10/21/2019 CONSULTANTS: 1. Dr. Lowry, bore mill operator for plastic. 2. Dr. Maguire, Infectious Disease. 3. Dr. Casas, Cardiology. 4. Dr. Roger, Nephrology. SUBJECTIVE: The patient remains intubated and sedated. No events noted overnight. PHYSICAL EXAMINATION: VITAL SIGNS: Temperature 99.0, pulse is 131, blood pressure 142/74, and pulse ox is 100% on the vent, 60 FiO2. GENERAL: Sedated and intubated. LUNGS: Decreased breath sounds. CARDIOVASCULAR: Tachycardia. Normal S1 and S2 heard. ABDOMEN: Soft. MUSCULOSKELETAL: Generalized edema. NEUROLOGIC: Sedated. SKIN: Dry with pressure ulcers on the sacral and toes. LABORATORY DATA: WBC 21.0, hemoglobin 9.4, hematocrit 32.2, and platelets 323. Sodium 136, potassium 5.0, CO2 30, BUN 12, creatinine 0.61, and estimated GFR greater than 60. Magnesium 2.4. AST 12 and ALT 13. ABG; pH 7.10, pCO2 107, PO2 95, and bicarb 33. Chest x-ray, low lung volumes with interval improvement in the right lung aeration with persistent multifocal left greater than right airspace opacity. IMPRESSION: 1. Acute respiratory failure due to COVID-19 pneumonia. Remains sedated and intubated. Vent management per bore mill operator for plastic. 2. Skhic-lf-kxyvocf anemia. Hemoglobin is 9. We will continue to monitor closely. 3. Leukocytosis. WBC is 21. Chest x-ray noted with multifocal pneumonia. Started on cefepime per ID. 4. Thrombocytopenia. Resolved. 5. Anasarca. Diuretics per Renal. 6. Tachycardia, Continue on beta blockers per Cardiology. 7. Obesity. 8. Deep vein thrombosis prophylaxis. Continue Lovenox subcutaneous. PLAN: To continue current treatment, supportive therapy and vent management per Dr. Lowry. ABGs noted with respiratory acidosis. We will defer to bore mill operator for plastic. Dictated by SNEHAL Laguerre Taylor Aparicio MD MY/MODL /[id number]
[2019-10-22] VITALS (27 sets, daily range): BP systolic 124–181; BP diastolic 59–81
[2019-10-22 04:32] LABS: BASOPHILS # (AUTO) 0.1 (0.0-0.1); BASOPHILS % 0.3 % (0.0-1.0); EOSINOPHILS # (AUTO) 0.9 (0.0-0.4); EOSINOPHILS % 4.7 % (0.0-6.0); HEMATOCRIT 23.9 % (38.2-49.6); HEMOGLOBIN 7.2 g/dL (14.0-18.0); LYMPHOCYTES # (AUTO) 0.4 (1.0-3.2); LYMPHOCYTES % 2.4 % (18.0-39.1); MEAN CORPUSCULAR HEMOGLOBIN 27.8 pg (28-32); MEAN CORPUSCULAR HGB CONC 30.1 g/dL (31-35); MEAN CORPUSCULAR VOLUME 92.3 fL (81-99); MONOCYTES # (AUTO) 0.7 (0.2-0.8); MONOCYTES % 4.1 % (4.4-11.3); NEUTROPHILS # (AUTO) 15.7 (2.1-6.9); NEUTROPHILS % 87.4 % (38.7-80.0); PLATELET COUNT 283 x10e3/uL (140-360); RED BLOOD COUNT 2.59 x10e6/uL (4.3-5.7); RED CELL DISTRIBUTION WIDTH 14.8 % (11.7-14.4)
[2019-10-22 04:54] LABS: ALANINE AMINOTRANSFERASE 14 IU/L (0-55); ALBUMIN 2.6 g/dL (3.5-5.0); ALBUMIN/GLOBULIN RATIO 0.6 (0.8-2.0); ALKALINE PHOSPHATASE 151 IU/L (40-150); ANION GAP 15.6 mmol/L (8-16); BLOOD UREA NITROGEN 22 mg/dL (7-26); BUN/CREATININE RATIO 33 (6-25); CALCIUM 8.6 mg/dL (8.4-10.2); CARBON DIOXIDE 26 mmol/L (22-29); CHLORIDE 102 mmol/L (98-107); CREATININE, SERUM 0.66 mg/dL (0.72-1.25); EST GLOMERULAR FILTRATION RATE > 60 ML/MIN (60-); GLUCOSE 123 mg/dL (74-118); POTASSIUM 3.6 mmol/L (3.5-5.1); SODIUM 140 mmol/L (136-145)
[2019-10-22] MEDS: SUCRALFATE 1 GM/10 ML SUSP NG SCH ×3 (05:13→17:32)
[2019-10-22] MEDS: ENOXAPARIN SOD INJ 40 MG/0.4 ML SYR SC SCH ×2 (05:13→17:32)
[2019-10-22] MEDS: EYE LUBRICANT OPTH OINT 3.5GM TUBE OP SCH ×3 (05:13→17:32)
[2019-10-22] MEDS: TOBRAMYCIN 40 MG/ML 2ML VIAL NEB SCH ×2 (07:00→19:30)
[2019-10-22] MEDS: FAMOTIDINE 20 MG/2 ML VIAL IV SCH ×2 (08:14→21:26)
[2019-10-22] MEDS: MULTIVITAMINS/MINERALS TAB PO SCH (08:14)
[2019-10-22] MEDS: POTASSIUM CHLORIDE 20MEQ/15ML UDC NG SCH ×3 (08:14→21:00)
[2019-10-22] MEDS: FUROSEMIDE INJ 100 MG in SODIUM CHLORIDE 0.9% 100 ML 90 ML IV SCH ×2 (08:14→20:25)
[2019-10-22] MEDS: ACETAZOLAMIDE 250 MG TAB NG SCH ×2 (08:14→21:26)
[2019-10-22] MEDS: ASCORBIC ACID 500 MG TAB PO SCH ×2 (08:14→21:27)
[2019-10-22] MEDS: METOPROLOL TARTRATE 25 MG TAB PO SCH ×2 (08:14→21:27)
[2019-10-22] MEDS: ZINC SULFATE 220 MG CAP PO SCH (08:15)
[2019-10-22] MEDS: BALSAM PERU/CASTOR OIL 60 GM OINT...G. TP SCH (08:15)
[2019-10-22] MEDS: CHOLECALCIFEROL 1,000 UNIT TAB PO SCH (08:15)
[2019-10-22] MEDS ORDERED: POTASSIUM CHLORIDE 20MEQ/15ML UDC NG SCH (09:00)
--- NOTE | 2019-10-22 09:08 | Progress Note ---
DATE: 10/22/2019 Renal Progress Note SUBJECTIVE: Followed for hypokalemia and patient's potassium is 3.6 today, it was going up to 5.0. The patient also has a decrease in bicarb level now. The patient's overall oxygenation is improving. FiO2 is at 50%. The patient remains on Lasix drip. Remains on the vent. Has COVID pneumonia. OBJECTIVE: VITAL SIGNS: Have been noted. Blood pressures are in the 160s to 170s over 70s. Pulse 113, afebrile. LUNGS: Rales bilaterally. CARDIOVASCULAR: S1 and S2. Tachycardic. ABDOMEN: Soft. Positive bowel sounds. EXTREMITIES: 1+ edema. LABORATORY WORKUP: Potassium is now down to 3.6. Kidney functions are normal. Creatinine is 0.7. IMPRESSION AND PLAN: 1. Hypokalemia, resolved now. However, potassium has trended downwards again. We will increase the NG to potassium to three times a day 20 mEq and monitor closely. 2. Hypertension. Blood pressure is stable. Continue to monitor. 3. Fluid overload. Continue Lasix drip. The patient's overall oxygenation is improving. MD ERIKA Bocanegra/MODL /[id number]
[2019-10-22] MEDS: FENTANYL 2000MCG/NS 250 250 ML IV PRN ×2 (11:59→21:28)
[2019-10-22] MEDS: MIDAZOLAM HCL 5MG/ML 10ML VIAL 100 ML IV PRN ×2 (12:01→21:28)
--- NOTE | 2019-10-22 12:35 | NUR ---
Concrete Technician called pt's mother to follow up. Pt's mother hoping for improvement. Pt's mother states, "He has good days and bad days." Pt's mother expressed emotions thru words and tears. Concrete Technician provided empathic listening, prayer, and reminded her of availability of hose suspender cutter services as a resource. Will continue to follow as able. WILMAN Wells [facility] O: [phone]
--- NOTE | 2019-10-22 12:40 | Progress Note ---
DATE: Pulmonary Critical Care Progress Note SUBJECTIVE: The patient is now in the prone position. He remains on rocuronium at 0.006 as well as Versed at 10 mg an hour, fentanyl at 300, and propofol at 15. He is currently on a pressure control mode of ventilation set at a rate of 32 with a FiO2 of 40%, and a PEEP of 6. His pressure above PEEP is 28. His tidal volumes with these settings are in the 400 range. PHYSICAL EXAMINATION: VITAL SIGNS: The patient is afebrile. The blood pressure is 179/80 and the heart rate is 100 to 110. Saturation is 100% on the above-mentioned settings. The patient is off pressors. He remains on Versed and fentanyl. HEENT: He has an oral endotracheal tube in place. There is an IJ line. The site looks clean. There is no drainage. There is an arterial line. CARDIAC: Reveals regular rate and rhythm with normal S1 and S2. LUNGS: Auscultation of lungs reveals clear breath sounds bilaterally. There are some rhonchi. ABDOMEN: Soft and nontender. There is no rebound or guarding. EXTREMITIES: Shows no leg edema or calf tenderness. There is no cyanosis or clubbing. SKIN: Shows no rashes. NEUROLOGICAL: Shows the patient to be sedated. LABORATORY DATA: Blood gases; 7.44 with a CO2 of 42.7, PO2 of 167, and CO3 of 29. BUN to creatinine ratio is normal. The other electrolytes are within normal limits. The white blood cell count is 17.8 and the hemoglobin is 7.2. The platelet count is 283. IMPRESSION: 1. Acute respiratory failure. 2. Viral pneumonia and COVID-19 infection. 3. Pseudomonas pneumonia. 4. Anemia secondary to chronic blood loss. 5. Decubitus skin breakdown. 6. Anasarca and volume overload. 7. Thrombocytopenia. 8. Hypokalemia. PLAN: 1. Continue current ventilator settings and repeat ABG later this afternoon. 2. Complete therapy with nebulized, tobramycin and cefepime. 3. Continue Lasix drip. 4. Continue to monitor electrolytes and potassium. 5. Continue Lovenox. 6. The patient will probably require tracheostomy this week. 7. Case discussed with shift superintendent nursing, day shift nursing, Respiratory, Infectious Disease, General Surgery, and administration. Greater than 35 minutes in direct critical care time. MD SAMINA Angel/ANGELA /[id number]
--- NOTE | 2019-10-22 12:49 | NUR ---
infectious disease progress note Patient seen and examined chart review case was discussed with medical team this is October 22, 2019. Patient remains in intensive care unit The patient is now in the prone position. He remains on rocuronium at 0.006 as well as Versed at 10 mg an hour, fentanyl at 300, and propofol at 15. He is currently on a pressure control mode of ventilation set at a rate of 32 with a FiO2 of 40%, and a PEEP of 6. His pressure above PEEP is 28. His tidal volumes with these settings are in the 400 range. PHYSICAL EXAMINATION: VITAL SIGNS: The patient is afebrile. The blood pressure is 179/80 and the heart rate is 100 to 110. Saturation is 100% on the above-mentioned settings. The patient is off pressors. He remains on Versed and fentanyl. HEENT: He has an oral endotracheal tube in place. Normocephalic There is an IJ line. The site looks clean. There is no drainage. There is an arterial line. chest with crackles bilateral CARDIAC: Reveals regular rate and rhythm with normal S1 and S2. LUNGS: Auscultation of lungs reveals clear breath sounds bilaterally. There are some rhonchi. ABDOMEN: Soft and nontender. There is no rebound or guarding. EXTREMITIES: Shows no leg edema or calf tenderness. There is no cyanosis or clubbing. SKIN: Shows no rashes. NEUROLOGICAL: Shows the patient to be sedated. LABORATORY DATA: Blood gases; 7.44 with a CO2 of 42.7, PO2 of 167, and CO3 of 29. BUN to creatinine ratio is normal. The other electrolytes are within normal limits. The white blood cell count is 17.8 and the hemoglobin is 7.2. The platelet count is 283. IMPRESSION: 1. Acute respiratory failure. 2. Viral pneumonia and COVID-19 infection. 3. Pseudomonas pneumonia. 4. Anemia secondary to chronic blood loss. 5. Decubitus skin breakdown. 6. Anasarca and volume overload. 7. Thrombocytopenia. 8. Hypokalemia. continue with supportive care as ordered we will follow please refer to the orders
[2019-10-22] MEDS: CEFEPIME 1GM/NS 0.9% 50 ML 50 ML IV SCH (13:46)
[2019-10-22 14:58] LABS: ABG HCO3 29 mmol/L (22-26); ABG PCO2 42 mmHg (35-45); ABG PH 7.45 (7.35-7.45); ABG PO2 99 mmHg (80-105); ABG TCO2 31
[2019-10-22 15:17] LABS: BASOPHILS # (AUTO) 0.1 (0.0-0.1); BASOPHILS % 0.3 % (0.0-1.0); EOSINOPHILS # (AUTO) 1.1 (0.0-0.4); EOSINOPHILS % 6.5 % (0.0-6.0); HEMATOCRIT 23.6 % (38.2-49.6); HEMOGLOBIN 7.2 g/dL (14.0-18.0); LYMPHOCYTES # (AUTO) 0.5 (1.0-3.2); LYMPHOCYTES % 2.9 % (18.0-39.1); MEAN CORPUSCULAR HEMOGLOBIN 27.7 pg (28-32); MEAN CORPUSCULAR HGB CONC 30.5 g/dL (31-35); MEAN CORPUSCULAR VOLUME 90.8 fL (81-99); MONOCYTES # (AUTO) 0.9 (0.2-0.8); MONOCYTES % 5.6 % (4.4-11.3); NEUTROPHILS % 83.7 % (38.7-80.0); PLATELET COUNT 303 x10e3/uL (140-360); RED CELL DISTRIBUTION WIDTH 14.9 % (11.7-14.4)
--- NOTE | 2019-10-22 16:00 | NUR ---
THIS RN RESUMED CARE
--- NOTE | 2019-10-22 18:06 | Progress Note ---
DATE: 10/22/2019 CONSULTANTS: 1. Dr. Lowry, transportation mechanic. 2. Dr. Maguire, Infectious Disease. 3. Dr. Casas, Cardiology. 4. Dr. Roger, Nephrology. SUBJECTIVE: The patient is intubated and sedated in prone position. No changes. PHYSICAL EXAMINATION: VITAL SIGNS: Temperature 97.6, pulse of 111, respirations 32, blood pressure 147/67, pulse ox 100% on the vent. GENERAL: Intubated and sedated. LUNGS: Decreased breath sounds. CARDIOVASCULAR: Tachycardia. S1, S2 heard. ABDOMEN: Soft. MUSCULOSKELETAL: Generalized edema. NEUROLOGIC: Sedated. SKIN: Dry with multiple pressure ulcers. LABORATORY DATA: WBC 16.67, hemoglobin 7.2, hematocrit 23.6, platelet 303. Sodium 140, potassium 3.6, BUN 22, creatinine 0.66, estimated GFR is greater than 60. Blood glucose 123. AST 18, ALT 14, alkaline phosphatase 151. IMPRESSION: 1. Acute respiratory failure due to COVID-19 pneumonia. Remains intubated and sedated, vent management per transportation mechanic. 2. Leukocytosis. WBC is improving, continue on cefepime per ID. 3. Acute on chronic anemia. Hemoglobin is stable. We will continue to monitor. 4. Thrombocytopenia. Resolved. 5. Anasarca. Diuretics per Renal. 6. Tachycardia, Continue on beta blockers per Cardiology. 7. Obesity. 8. DVT prophylaxis. Continue on Lovenox. PLAN: To continue supportive therapy and vent management per Dr. Lowry. ABG improving. Dictated by SNEHAL Laguerre Taylor Aparicio MD MY/MODL /[id number]
--- NOTE | 2019-10-22 22:52 | Progress Note ---
DATE: 10/22/2019 Cardiology Progress Note SUBJECTIVE: Mr. Miles is remained intubated and sedated. OBJECTIVE: VITAL SIGNS: Temperature 97.6, heart rate 111, blood pressure 176/76, respiratory rate 32, and O2 saturation 100%. BMI 31.7. GENERAL: Intubated and sedated. NECK: Supple. CHEST: Rales and decreased breath sounds. CARDIOVASCULAR: Regular rate and rhythm. Normal S1 and S2. ABDOMEN: Soft. EXTREMITIES: 1+ edema to bilateral lower extremities. CARDIOVASCULAR MEDICATIONS: Reviewed. Metoprolol tartrate 5 mg q.6 hours, Lovenox 40 mg subcutaneous q.12 hours, metoprolol tartrate 25 mg every 12 hours, and acetazolamide 250 mg every 12 hours. STUDIES: Reviewed. Sodium 140, potassium 3.6, chloride 102, bicarbonate 26, BUN 22, creatinine 0.6, and glucose 123. White blood cells 17.9, hemoglobin 7.2, and platelets 283. PT 16.5, PTT 37.7, and INR 1.2. AST 18, ALT 14, and alkaline phosphatase 151. ASSESSMENT AND PLAN: A 44-year-old man presents with COVID-19 infection, community-acquired pneumonia, acute respiratory failure, anemia, hypertension, volume overload, and acute diastolic heart failure. RECOMMEND: 1. Continue diuretics, furosemide drip. 2. Correct electrolytes as needed. 3. Antihypertensives as prescribed. 4. Continue DVT prophylaxis. 5. Continue vent weaning. MD OPAL Del Valle/ANGELA /[id number]
[2019-10-23] VITALS (23 sets, daily range): BP systolic 32–156; BP diastolic 47–80
[2019-10-23] MEDS: PROPOFOL IV EMULSION 10MG/ML 100 ML IV PRN ×3 (01:40→17:31)
[2019-10-23] MEDS: CEFEPIME 1GM/NS 0.9% 50 ML 50 ML IV SCH ×3 (01:42→23:25)
[2019-10-23] MEDS: SUCRALFATE 1 GM/10 ML SUSP NG SCH ×4 (01:42→18:06)
[2019-10-23] MEDS: EYE LUBRICANT OPTH OINT 3.5GM TUBE OP SCH ×4 (01:42→18:06)
[2019-10-23] MEDS: MIDAZOLAM HCL 5MG/ML 10ML VIAL 100 ML IV PRN ×4 (02:45→22:13)
[2019-10-23] MEDS: FENTANYL 2000MCG/NS 250 250 ML IV PRN ×3 (06:16→20:45)
[2019-10-23] MEDS: ENOXAPARIN SOD INJ 40 MG/0.4 ML SYR SC SCH ×2 (06:16→18:06)
[2019-10-23 06:19] LABS: BASOPHILS % 0.2 % (0.0-1.0); EOSINOPHILS # (AUTO) 1.1 (0.0-0.4); EOSINOPHILS % 7.4 % (0.0-6.0); HEMATOCRIT 25.7 % (38.2-49.6); HEMOGLOBIN 7.8 g/dL (14.0-18.0); LYMPHOCYTES # (AUTO) 0.6 (1.0-3.2); LYMPHOCYTES % 3.9 % (18.0-39.1); MEAN CORPUSCULAR HEMOGLOBIN 27.6 pg (28-32); MEAN CORPUSCULAR HGB CONC 30.4 g/dL (31-35); MEAN CORPUSCULAR VOLUME 90.8 fL (81-99); MONOCYTES # (AUTO) 1.1 (0.2-0.8); MONOCYTES % 7.2 % (4.4-11.3); NEUTROPHILS # (AUTO) 12.2 (2.1-6.9); PLATELET COUNT 321 x10e3/uL (140-360); RED BLOOD COUNT 2.83 x10e6/uL (4.3-5.7); RED CELL DISTRIBUTION WIDTH 14.9 % (11.7-14.4)
[2019-10-23 07:18] LABS: ALANINE AMINOTRANSFERASE 26 IU/L (0-55); ALBUMIN 2.5 g/dL (3.5-5.0); ALBUMIN/GLOBULIN RATIO 0.5 (0.8-2.0); ALKALINE PHOSPHATASE 159 IU/L (40-150); ANION GAP 15.3 mmol/L (8-16); BLOOD UREA NITROGEN 21 mg/dL (7-26); BUN/CREATININE RATIO 30 (6-25); CALCIUM 8.6 mg/dL (8.4-10.2); CARBON DIOXIDE 27 mmol/L (22-29); CHLORIDE 98 mmol/L (98-107); EST GLOMERULAR FILTRATION RATE > 60 ML/MIN (60-); GLUCOSE 114 mg/dL (74-118); POTASSIUM 3.3 mmol/L (3.5-5.1); SODIUM 137 mmol/L (136-145)
[2019-10-23] MEDS: TOBRAMYCIN 40 MG/ML 2ML VIAL NEB SCH ×2 (07:30→18:55)
[2019-10-23 08:40] LABS: ABG HCO3 30 mmol/L (22-26); ABG PCO2 65 mmHg (35-45); ABG PH 7.27 (7.35-7.45); ABG PO2 82 mmHg (80-105); ABG TCO2 32
[2019-10-23] MEDS: FAMOTIDINE 20 MG/2 ML VIAL IV SCH ×2 (09:28→21:34)
[2019-10-23] MEDS: FUROSEMIDE INJ 100 MG in SODIUM CHLORIDE 0.9% 100 ML 90 ML IV SCH ×3 (09:28→22:00)
[2019-10-23] MEDS: ACETAZOLAMIDE 250 MG TAB NG SCH (09:28)
[2019-10-23] MEDS: CHOLECALCIFEROL 1,000 UNIT TAB PO SCH (09:29)
[2019-10-23] MEDS: ZINC SULFATE 220 MG CAP PO SCH (09:29)
[2019-10-23] MEDS: POTASSIUM CHLORIDE 20MEQ/15ML UDC NG SCH ×3 (09:29→21:35)
[2019-10-23] MEDS: ASCORBIC ACID 500 MG TAB PO SCH ×2 (09:29→21:35)
[2019-10-23] MEDS: BALSAM PERU/CASTOR OIL 60 GM OINT...G. TP SCH (09:29)
[2019-10-23] MEDS: METOPROLOL TARTRATE 25 MG TAB PO SCH ×2 (09:29→21:35)
[2019-10-23] MEDS: MULTIVITAMINS/MINERALS TAB PO SCH (09:29)
--- NOTE | 2019-10-23 10:15 | NUR ---
HEMATOLOGY/ONCOLOGY PROGRESS NOTE: HPI: Events noted. Patient remains intubated and sedated, in COVID ICU. ROS: 14 point ROS unable to obtain secondary to patient intubated. PHYSICAL EXAM: Vitals: Reviewed as per EMR. Temp: 99.0 degF HR: 113 RR 32 BP 93/48 PE not performed due to COVID-19 contact precautions. LABORATORY/RADIOLOGY DATA: Reviewed per EMR. ASSESSMENT AND PLAN: Mr. Miles is a 44-year-old male with past medical history of hypertension who was admitted on 08/24/2019 due to cough and fever. Patient was found to be positive for COVID-19. Intubated due to worsening respiratory status. Patient has been treated with full-dose Lovenox since 09/08/19. Has required PRBC previously during admission. Patient now with dropping platelet count and recurrent anemia requiring PRBC transfusion. Hematology/Oncology has been consulted to assist with the management. 1. Thrombocytopenia: Likely secondary to consumption for infection. DIC panel showed no coagulopathy, elevated fibrinogen, does not appear DIC. Acute hepatitis panel negative. Abdominal US without evidence of liver cirrhosis or splenomegaly. HIT panel negative on 09/15/2019. Repeat DIC panel does not appear DIC with elevated fibrinogen level. THROMBOCYTOPENIA RESOLVED. Continue on Lovenox 40mg sq BID. Can move to full dose 1mg/kg BID if clear by other teams. Monitor closely. 2. Anemia: Anemia panel appears mixed picture AOCD + RODRIGUEZ with noted low B12 level. Macrocytosis probably combination of B12 deficiency and possibly also related to bone marrow suppression from viral infection. Ferritin mildly elevated, likely as acute phase reactant. Repeat ferritin significantly more la vated hold IV iron. Reticulocyte count and LDH mildly elevated, haptoglobin elevated, does not appear hemolysis. S/p multiple PRBC transfusions, last on 10/12/2019. Hemoglobin low but stable improved from yesterday AM. Monitor closely. 3. COVID-19 PNA: In the ICU, pharmacologically sedated and intubated with weaning off vent as tolerated. On TPN. Undergoing intermittent proning. Pneumocystis carinii smear negative. Blood cultures from 10/08 negative, repeat blood cultures drawn 10/20 NGTD. Sputum culture from 10/11 with pseudomonas, fungal pending. CXR without change. On IV antibiotics, leukocytosis improving. Pulmonary and infectious disease on board. 4. Melena/ileus/abd distention: On Pepcid IV q12h. Improved. On TFs with nutrition on board. 5. Fluid overload/oligoanuria: On diuresis, monitor UOP per Nephrology on board. 6. DVT proph: Continue on Lovenox 40mg sq BID. 7. GOC: Trach planning this week? per Pulmonary for now. Above plan discussed with Dr. Lona Martinez. Thank you for the consult. I will be available. Please call with questions.
--- NOTE | 2019-10-23 11:15 | Progress Note ---
DATE: SUBJECTIVE: The patient is afebrile. He is now in a supine position. He is on Versed at 10 as well as fentanyl at 300 and propofol at 20. He is also on rocuronium at 0.006. The patient remains on a PRVC mode of ventilation at a rate of 32 with a PEEP of 6 and pressure above PEEP of 26. Respiratory rate is set at 32. PHYSICAL EXAMINATION: VITAL SIGNS: The patient is afebrile. The vital signs are stable. HEENT: No facial swelling or erythema. LYMPHATIC: No submandibular, cervical, or supraclavicular adenopathy. There is an oral endotracheal tube. The patient has right IJ line. The site looks clean. CARDIAC: Regular rate and rhythm with normal S1, S2. LUNGS: Auscultation of lungs shows decreased breath sounds at the bases. There is no wheezing. ABDOMEN: Soft, nontender. There is no rebound or guarding. EXTREMITIES: No leg edema or calf tenderness. There is no cyanosis or clubbing. SKIN: No rashes. EXTREMITIES: No leg edema. LABORATORY DATA: White blood cell count is 15.22, hemoglobin is 7.8, and the platelet count is 321. The BUN to creatinine ratio is 21 to 0.7, and the potassium is 3.3. The other electrolytes are within normal limits. Albumin is 2.5. RADIOGRAPHIC DATA: Chest x-ray shows no changes. There are bilateral infiltrates. IMPRESSION: 1. Acute respiratory failure. 2. Viral pneumonia and coronavirus disease-19 infection. 3. Anasarca. 4. Decubitus skin breakdown. 5. Anemia secondary to chronic blood loss. 6. Pseudomonas pneumonia that has resolved. 7. Thrombocytopenia. 8. Hypokalemia. PLAN: 1. Continue Lasix drip. 2. Continue current ventilator settings. 3. Repeat chest x-ray. 4. Wean pressors as tolerated. 5. Continue Lovenox. 6. Arrange for tracheostomy. Greater than 35 minutes in direct critical care time. Maximilian Lowry MD LM/REYESL /[id number]
--- NOTE | 2019-10-23 11:24 | Diagnostic Imaging Report ---
EXAMINATION: CHEST SINGLE (PORTABLE) INDICATION: Respiratory failure COMPARISON: Chest radiograph 10/21/2019 FINDINGS: LINES/TUBES:Support lines and tubes unchanged. LUNGS:The lung volumes remain low. Unchanged left greater than right bilateral airspace opacities. PLEURA:Unchanged bilateral pleural effusions. No pneumothorax. MEDIASTINUM:The cardiomediastinal silhouette appears unchanged in size and shape. BONES/SOFT TISSUES:No acute osseous injury. ABDOMEN:No free air under the diaphragm. IMPRESSION: No significant interval change. Signed by: Farrah Pierson MD on 10/23/2019 11:20 AM
--- NOTE | 2019-10-23 12:20 | Progress Note ---
DATE: 10/23/2019 Renal Progress Note SUBJECTIVE: Followed for hypokalemia and fluid overload. The patient has been off Levophed drip. Blood pressures have been holding quite steady. The patient remains on the vent. Has COVID pneumonia. The patient remains on high oxygen requirements, although they are being weaned off slowly. Potassium slightly low again today at 3.3, was 3.6 yesterday. Despite increasing the potassium via the NG tube, it is still dropping. OBJECTIVE: VITAL SIGNS: Have been noted and are stable. LUNGS: Rhonchi bilaterally. CARDIOVASCULAR: S1 and S2. No rub. ABDOMEN: Soft. Positive bowel sounds. EXTREMITIES: 1 to 2+ edema. LABORATORY WORKUP: Potassium 3.3, magnesium is 2.1, calcium 8.6, and creatinine 0.7. IMPRESSION AND PLAN: 1. Hypokalemia. We will continue to replace potassium via the G-tube and also IV. The patient is on 20 mEq 3 times a day via G-tube. I will increase the potassium to 40 mEq 3 times a day via the G-tube and we will monitor closely. 2. Hypertension. Blood pressure is stable. The patient has been off Levophed. 3. COVID pneumonia. Plan per Pulmonary Critical Care. 4. Fluid overload. The patient is on Lasix drip. Would continue that for now. The patient is getting Diamox also, although the patient's metabolic alkalosis has now improved. I will discontinue the Diamox and re-evaluate. Thank you once again. Alex Roger MD /MODL /[id number]
[2019-10-23] MEDS: ROCURONIUM BROMIDE 1,250 MG in SODIUM CHLORIDE 0.9% 250ML 125 ML IV SCH ×2 (14:29→19:00)
--- NOTE | 2019-10-23 15:46 | Progress Note ---
DATE: 10/23/2019 CONSULTANTS: 1. Dr. Lowry, bone worker. 2. Dr. Maguire, infectious Disease. 3. Dr. Casas, Cardiology. 4. Dr. Alex Roger, Nephrology. SUBJECTIVE: The patient is in supine position, intubated and sedated. No changes overnight. OBJECTIVE: VITAL SIGNS: Temperature 98.0, pulse is 115, respirations 34, blood pressure 94/47, and pulse ox 95% on the vent. GENERAL: Intubated and sedated. LUNGS: Decreased breath sounds. CARDIOVASCULAR: Tachycardic. S1 and S2 heard. ABDOMEN: Soft. MUSCULOSKELETAL: Generalized edema. NEUROLOGIC: Sedated. SKIN: Dry with multiple pressure ulcers. LABORATORY DATA: WBC 15.22, hemoglobin 7.8, hematocrit 25.7, and platelets 321. Sodium 137, potassium 3.3, creatinine 0.70, BUN 21, and glucose 114. AST 26, ALT 26, and alkaline phosphate 159. ABG; pH 7.27, pCO2 is 65, PO2 82, and bicarb 30. Blood cultures negative. Chest x-ray, no significant interval change. IMPRESSION: 1. Acute respiratory failure due to COVID-19 pneumonia. Intubated and sedated. Vent management per bone worker. 2. Leukocytosis. WBC is improving. Continue cefepime per ID. 3. Chronic anemia. Hemoglobin is stable. We will continue to monitor. Hemoglobin today is 7.8. 4. Hypokalemia. Replace per Renal. 5. Thrombocytopenia. Resolved. 6. Anasarca. Diuretics per Renal. 7. Tachycardia. Continue beta blockers per Cardiology. 8. Deep vein thrombosis prophylaxis. On Lovenox subcutaneous. PLAN: To continue supportive therapy, antibiotics, and vent management per bone worker. Dictated by SNEHAL Laguerre Taylor Aparicio MD MY/MODL /[id number]
--- NOTE | 2019-10-23 16:10 | NUR ---
Infectious disease progress note Patient seen and examined chart review case was discussed with medical team this is October 22, 2019. Patient remains in intensive care unit The patient is now in the prone position. He remains on rocuronium at 0.006 as well as Versed at 10 mg an hour, fentanyl at 300, and propofol at 15. He is currently on a pressure control mode of ventilation set at a rate of 32 with a FiO2 of 40%, and a PEEP of 6. His pressure above PEEP is 28. His tidal volumes with these settings are in the 400 range. PHYSICAL EXAMINATION: VITAL SIGNS: The patient is afebrile. pressors. He remains on Versed and fentanyl. HEENT: He has an oral endotracheal tube in place. Normocephalic There is an IJ line. The site looks clean. There is no drainage. There is an arterial line. chest with crackles bilateral CARDIAC: Reveals regular rate and rhythm with normal S1 and S2. LUNGS: Auscultation of lungs reveals clear breath sounds bilaterally. There are some rhonchi. ABDOMEN: Soft and nontender. There is no rebound or guarding. EXTREMITIES: Shows no leg edema or calf tenderness. There is no cyanosis or clubbing. SKIN: Shows no rashes. NEUROLOGICAL: Shows the patient to be sedated. LABORATORY DATA: Blood gases; 7.44 with a CO2 of 42.7, PO2 of 167, and CO3 of 29. BUN to creatinine ratio is normal. The other electrolytes are within normal limits. The white blood cell count is 17.8 and the hemoglobin is 7.2. The platelet count is 283. IMPRESSION: 1. Acute respiratory failure. 2. Viral pneumonia and COVID-19 infection. 3. Pseudomonas pneumonia. 4. Anemia secondary to chronic blood loss. 5. Decubitus skin breakdown. 6. Anasarca and volume overload. 7. Thrombocytopenia. 8. Hypokalemia. continue with supportive care as ordered we will follow please refer to the orders
[2019-10-23 16:15] LABS: ABG HCO3 31 mmol/L (22-26); ABG PCO2 60 mmHg (35-45); ABG PH 7.33 (7.35-7.45); ABG PO2 87 mmHg (80-105); ABG TCO2 33
--- NOTE | 2019-10-23 18:52 | Diagnostic Imaging Report ---
EXAMINATION: CHEST SINGLE (PORTABLE) INDICATION: Follow-up pneumonia. COMPARISON: Multiple prior chest x-rays including most recent earlier today. FINDINGS: TUBES and LINES: Endotracheal tube terminates approximately 3 cm above the fred. Bilateral PICC and subdiaphragmatic enteric tube are unchanged. LUNGS: No interval change in bilateral airspace opacities. PLEURA: Bilateral pleural effusion is unchanged. HEART AND MEDIASTINUM: The cardiomediastinal silhouette is unchanged. BONES AND SOFT TISSUES: No acute osseous lesion. Soft tissues are unchanged. UPPER ABDOMEN: No free air under the diaphragm. IMPRESSION: 1. No interval change in multifocal airspace opacities throughout both lungs. 2. Stable support lines and tubes as above. Signed by: Peter Gibbs MD on 10/23/2019 6:49 PM
[2019-10-23] MEDS ORDERED: METOPROLOL TARTRATE 25 MG TAB ONE (19:58)
[2019-10-24] VITALS (26 sets, daily range): BP systolic 91–155; BP diastolic 49–76
[2019-10-24] MEDS: SUCRALFATE 1 GM/10 ML SUSP NG SCH ×4 (01:29→17:58)
[2019-10-24] MEDS: EYE LUBRICANT OPTH OINT 3.5GM TUBE OP SCH ×4 (01:29→17:58)
[2019-10-24] MEDS: PROPOFOL IV EMULSION 10MG/ML 100 ML IV PRN ×3 (01:50→18:37)
[2019-10-24] MEDS: FENTANYL 2000MCG/NS 250 250 ML IV PRN ×3 (03:20→13:43)
[2019-10-24] MEDS: MIDAZOLAM HCL 5MG/ML 10ML VIAL 100 ML IV PRN ×4 (03:21→18:57)
--- NOTE | 2019-10-24 03:43 | Progress Note ---
DATE: 10/23/2019 Cardiology Progress Note SUBJECTIVE: Mr. Miles remains intubated, sedated. OBJECTIVE: VITAL SIGNS: Temperature is 99 degrees, heart rate 119, respiratory rate 34, blood pressure 94/47, O2 saturation 95% on vent support. GENERAL: Intubated, sedated on telemetry sinus tachycardia. NECK: Supple. CHEST: Clear to auscultation. CARDIOVASCULAR: Regular rate and rhythm. Normal S1, S2. ABDOMEN: Soft. Bowel sounds positive. EXTREMITIES: No edema. CARDIOVASCULAR MEDICATION: Reviewed. 1. Furosemide drip. 2. Lovenox 40 mg subcu q.12 hours. 3. KCl 40 mEq for repletion. STUDIES: Reviewed. White blood cells 15, hemoglobin 7.8, platelets 321. INR 1.2. Sodium 137, potassium 3.3, chloride 98, bicarbonate 27, BUN 21, creatinine 0.7, glucose 114, total protein 7.2, albumin 2.5, AST 26, ALT 26, alkaline phosphatase 159, and magnesium 2.1. ASSESSMENT AND PLAN: COVID-19 patient community-acquired pneumonia, acute respiratory failure, prolonged intubation, acute diastolic heart failure, hypertension. RECOMMENDATIONS: Continue current cardiovascular medications. Blood pressure stable. Seems at this point approaching euvolemic state, considering on trach and continued vent weaning in rehab. Continue cardiovascular medications. MD OPAL Del Valle/ANGELA /[id number]
[2019-10-24] MEDS: ACETAMINOPHEN 325 MG TAB NG PRN ×2 (05:06→22:00)
[2019-10-24 05:07] LABS: BASOPHILS % 0.3 % (0.0-1.0); EOSINOPHILS % 7.3 % (0.0-6.0); HEMATOCRIT 25.1 % (38.2-49.6); HEMOGLOBIN 7.7 g/dL (14.0-18.0); LYMPHOCYTES # (AUTO) 0.6 (1.0-3.2); MEAN CORPUSCULAR HEMOGLOBIN 27.7 pg (28-32); MEAN CORPUSCULAR HGB CONC 30.7 g/dL (31-35); MEAN CORPUSCULAR VOLUME 90.3 fL (81-99); MONOCYTES # (AUTO) 1.2 (0.2-0.8); MONOCYTES % 8.7 % (4.4-11.3); NEUTROPHILS # (AUTO) 11.1 (2.1-6.9); NEUTROPHILS % 77.7 % (38.7-80.0); PLATELET COUNT 403 x10e3/uL (140-360); RED BLOOD COUNT 2.78 x10e6/uL (4.3-5.7); RED CELL DISTRIBUTION WIDTH 15.1 % (11.7-14.4)
[2019-10-24 05:24] LABS: ALANINE AMINOTRANSFERASE 24 IU/L (0-55); ALBUMIN 2.5 g/dL (3.5-5.0); ALBUMIN/GLOBULIN RATIO 0.5 (0.8-2.0); ALKALINE PHOSPHATASE 151 IU/L (40-150); ANION GAP 15.5 mmol/L (8-16); BLOOD UREA NITROGEN 20 mg/dL (7-26); BUN/CREATININE RATIO 26 (6-25); CALCIUM 8.6 mg/dL (8.4-10.2); CARBON DIOXIDE 28 mmol/L (22-29); CHLORIDE 98 mmol/L (98-107); CREATININE, SERUM 0.76 mg/dL (0.72-1.25); EST GLOMERULAR FILTRATION RATE > 60 ML/MIN (60-); GLUCOSE 114 mg/dL (74-118); POTASSIUM 3.5 mmol/L (3.5-5.1); SODIUM 138 mmol/L (136-145)
[2019-10-24] MEDS: ENOXAPARIN SOD INJ 40 MG/0.4 ML SYR SC SCH ×2 (06:00→07:57)
[2019-10-24] MEDS: TOBRAMYCIN 40 MG/ML 2ML VIAL NEB SCH ×2 (07:00→19:15)
[2019-10-24] MEDS: FUROSEMIDE INJ 100 MG in SODIUM CHLORIDE 0.9% 100 ML 90 ML IV SCH (07:58)
[2019-10-24] MEDS: FAMOTIDINE 20 MG/2 ML VIAL IV SCH ×2 (08:20→21:45)
[2019-10-24] MEDS: MULTIVITAMINS/MINERALS TAB PO SCH (08:20)
[2019-10-24] MEDS: BALSAM PERU/CASTOR OIL 60 GM OINT...G. TP SCH (08:20)
[2019-10-24] MEDS: ASCORBIC ACID 500 MG TAB PO SCH ×2 (08:20→21:45)
[2019-10-24] MEDS: ZINC SULFATE 220 MG CAP PO SCH (08:20)
[2019-10-24] MEDS: METOPROLOL TARTRATE 25 MG TAB PO SCH ×2 (08:20→21:00)
[2019-10-24] MEDS: CHOLECALCIFEROL 1,000 UNIT TAB PO SCH (08:20)
[2019-10-24] MEDS: POTASSIUM CHLORIDE 20MEQ/15ML UDC NG SCH ×3 (08:20→21:45)
[2019-10-24 08:26] LABS: PHOSPHORUS 4.5 MG/DL (2.3-4.7)
[2019-10-24] MEDS ORDERED: POTASSIUM CHLORIDE 20MEQ/15ML UDC NG SCH (08:30)
--- NOTE | 2019-10-24 08:43 | Progress Note ---
DATE: 10/24/2019 Renal Progress Note SUBJECTIVE: Followed for hypokalemia and fluid overload. The patient also has COVID pneumonia, the patient remains on the ventilator. Nonoliguric. OBJECTIVE: VITAL SIGNS: Blood pressure is 131/65. The patient has been off Levophed. The patient is on FiO2 of 45%. LUNGS: Rales bilateral lung quevedo. CARDIOVASCULAR: S1 and S2. No rub. ABDOMEN: Soft. Positive bowel sounds. EXTREMITIES: No edema. LABORATORY WORKUP: Sodium 138, potassium 3.5, chloride 98, bicarb of 28, BUN is 20, creatinine is 0.76, and calcium 8.6. IMPRESSION AND PLAN: 1. Hypokalemia, responding well to potassium, being given via the G-tube 40 mEq three times a day. We will continue with this and continue to monitor daily electrolytes. 2. Hypertension. The patient has been off Levophed several days now as blood pressure is within range. 3. Fluid overload, improved with Lasix drip. The patient is no longer getting metabolic alkalosis. I have stopped his Diamox now. We will continue to monitor just on the Lasix drip. If needed can decrease Lasix drip dose down to 5 mg/hour. 4. COVID-19 pneumonia appears to be improving with his oxygenation, FiO2 is down to 45%. Alex Roger MD TH/MODL /[id number]
--- NOTE | 2019-10-24 09:54 | Progress Note ---
DATE: Pulmonary Critical Care Progress Note SUBJECTIVE: The patient is now supine. He is currently on a pressure control at a rate of 30 with a FiO2 of 40% and a PEEP of 5 and a pressure above PEEP of 26. His hemodynamics are stable. He is off rocuronium. He remains on Versed and fentanyl as well as low-dose propofol. PHYSICAL EXAMINATION: VITAL SIGNS: The patient is afebrile. The blood pressure is 120/60, saturation is 98%. The heart rate is 110-115. Saturation is 97% on the above-mentioned ventilator settings. He has an oral endotracheal tube. There is an IJ line. The site looks clean. There is no drainage. CARDIAC: Regular rate and rhythm with normal S1, S2. LUNGS: Auscultation of lungs reveals rhonchorous breath sounds bilaterally. There is no wheezing. ABDOMEN: Soft, nontender. There is no rebound or guarding. EXTREMITIES: No leg edema or calf tenderness. There is no cyanosis or clubbing. SKIN: No rashes. NEUROLOGICAL: No focal abnormalities. LABORATORY DATA: The BUN to creatinine ratio is 20 to 0.66 and the other electrolytes within normal limits. Albumin is 2.6. The hemoglobin is 7.7. The platelet count is 403. The white blood cell count is 14.2. IMPRESSION: 1. Acute respiratory failure. 2. Viral pneumonia and coronavirus disease-19 infection. 3. Anasarca. 4. Anemia secondary to chronic blood loss. 5. Decubitus skin breakdown. 6. Thrombocytopenia. 7. Hypokalemia. 8. Intestinal ileus. PLAN: 1. The patient will continue on current ventilator settings. Repeat ABG later this afternoon. 2. Continue Lasix drip. 3. Abdominal ultrasound. 4. Continue to maintain patient off rocuronium. Continue Versed and fentanyl. 5. Continue Lovenox. 6. Continue enteral feedings. 7. The patient is now scheduled for tracheostomy. Greater than 35 minutes in direct critical care time. Maximilian Lowry MD [facility]/MODL /[id number]
[2019-10-24 10:28] LABS: ABG HCO3 32 mmol/L (22-26); ABG PCO2 50 mmHg (35-45); ABG PH 7.42 (7.35-7.45); ABG PO2 99 mmHg (80-105); ABG TCO2 34
[2019-10-24] MEDS: CEFEPIME 1GM/NS 0.9% 50 ML 50 ML IV SCH ×2 (11:46→23:29)
--- NOTE | 2019-10-24 12:05 | NUR ---
HEMATOLOGY/ONCOLOGY PROGRESS NOTE: HPI: Events noted. Patient remains intubated and sedated in the ICU on Fentanyl and Versed, trach scheduled. Slowly improving. ROS: 14 point ROS unable to obtain secondary to patient intubated/sedated. PHYSICAL EXAM: Vitals: Reviewed as per EMR. Temp: 99.6 degF HR: 121 RR 32 BP 129/61 PE not performed due to COVID-19 contact precautions. LABORATORY/RADIOLOGY DATA: Reviewed per EMR. ASSESSMENT AND PLAN: Mr. Miles is a 44-year-old male with past medical history of hypertension who was admitted on 08/24/2019 due to cough and fever. Patient was found to be positive for COVID-19. Intubated due to worsening respiratory status. Patient has been treated with full-dose Lovenox since 09/08/19. Has required PRBC previously during admission. Patient now with dropping platelet count and recurrent anemia requiring PRBC transfusion. Hematology/Oncology has been consulted to assist with the management. 1. Thrombocytopenia: Likely secondary to consumption for infection. DIC panel showed no coagulopathy, elevated fibrinogen, does not appear DIC. Acute hepatitis panel negative. Abdominal US without evidence of liver cirrhosis or splenomegaly. HIT panel negative on 09/15/2019. Repeat DIC panel does not appear DIC with elevated fibrinogen level. THROMBOCYTOPENIA RESOLVED, now with mild thrombocytosis which may be reactive. Continue on Lovenox 40mg sq BID. Can move to full dose 1mg/kg BID if clear by other teams. Monitor closely. 2. Anemia: Anemia panel appears mixed picture AOCD + RODRIGUEZ with noted low B12 level. Macrocytosis probably combination of B12 deficiency and possibly also related to bone marrow suppression from viral infection. Ferritin mildly elevated, likely as acute phase reactant. Repeat ferritin significantly more la vated hold IV iron. Reticulocyte count and LDH mildly elevated, haptoglobin elevated, does not appear hemolysis. S/p multiple PRBC transfusions, last on 10/12/2019. Hemoglobin low but stable in 7 range. Transfuse if hemoglobin <7. Monitor closely. 3. COVID-19 PNA: In the ICU, pharmacologically sedated and intubated with weaning off vent as tolerated. On TPN. Undergoing intermittent proning. Pneumocystis carinii smear negative. Blood cultures from 10/08 negative, repeat blood cultures drawn 10/20 NGTD. Sputum culture from 10/11 with pseudomonas, fungal pending. CXR without change. On IV antibiotics, leukocytosis improving. Pulmonary and infectious disease on board. 4. Melena/ileus/abd distention: On Pepcid IV q12h. Improved. Abdominal US pending. On TFs with nutrition on board. 5. Fluid overload/oligoanuria: On Lasix, monitor UOP per Nephrology on board. 6. DVT proph: Continue on Lovenox 40mg sq BID. 7. GOC: Trach scheduled per Pulmonary for now. Above plan discussed with Dr. Lona Martinez. Thank you for the consult. I will be available. Please call with questions.
--- NOTE | 2019-10-24 16:00 | Diagnostic Imaging Report ---
EXAM: US ABDOMEN COMPLETE DATE: 10/24/2019 3:10 PM INDICATION: Abdominal distention COMPARISON: Abdominal ultrasound from 09/15/2019 FINDINGS: The pancreas is not well-visualized secondary to prominent overlying bowel gas. The liver is normal in size measuring 17.3 cm in length. Hepatic echogenicity is within normal limits. No focal hepatic abnormality is identified. The main portal vein is patent with antegrade flow and diameter of 1.2 cm. Echogenic sludge is noted within the lumen of the gallbladder. No shadowing stones are identified. There is no gallbladder wall thickening or pericholecystic fluid. There is no intra or extra hepatic biliary ductal dilatation. The common mild duct measures 3 mm. Sonographic Ruiz's sign is negative. Spleen is enlarged measuring 16.5 cm in length but otherwise no stress unremarkable sonographic appearance. The kidneys are normal in size measuring 11.4 cm in length on the right and 12.4 cm in length on the left. Cortical thickness and echogenicity is within normal limits. There is no evidence for solid renal mass, hydronephrosis, or shadowing calculi. The visualized portions of the IVC are unremarkable. The aorta is not well-visualized secondary to prominent midline bowel gas. There is ascites visualized. IMPRESSION: Biliary sludge noted within the lumen of the gallbladder. No evidence for shadowing stones or sonographic evidence for acute cholecystitis. Splenomegaly. Signed by: Dr. Jerad Child MD on 10/24/2019 3:56 PM
--- NOTE | 2019-10-24 16:00 | NUR ---
Nutrition Intervention Note RD Recommendation(s) for Physician: - To better meet needs, recommend TF change to Pivot 1.5 with goal rate of 40 ml/hr (to provide 1440 kcal and 90 gm protein). Give 2 packets/day Beneprotein (provides an additional 50 kcal and 12 gm protein). Propofol provides an additional 298 kcal Pt may be fed at goal rate when prone in reverse Trendelenburg position with HOB 10-25 degrees - Water flushes per MD. - If unable to advance TF to goal rate, recommend initiating standard TPN at 42 ml/hr (Dextrose 30%/500 ml, AA10%/500 ml), standard lytes, add MVI, trace, thiamine. (716 kcal, 50 gm protein). Continue TF as tolerated. Addition of TPN to better meet nutritional needs. Plan of Care: RD following, TF rec's, TPN rec's, monitor adequacy and tolerance Nutrition reason for involvement: follow up RD Assessment 10/23: Follow up. Chart reviewed. Pt remains intubated and sedated. Pt is receiving propofol at 11.3 mL/hr which provides an additional 298 kcal. Last recorded tube feed rate was 30 mL/hr this morning. Pt is receiving Vital High Protein per RN. Recommend modifying tube feeding to Pivot 1.5. RD to manage TF order per Dr. Lowry. Will continue to monitor. 10/20: Follow up. Pt remains intubated, sedated, and paralyzed. Propofol stopped yesterday. Pt continues to require intermittent proning. No GI distress, pt having BMs, and TF currently infusing at 30 ml/hr. Noted Phos elevated after KPhos replacement. Plan for trach placement. Chart reviewed. In light of Propofol d/c, updated TF rec's provided. RD to manage TF order per Dr. Lowry. Will continue to monitor. 10/16: Follow up. Chart reviewed. Pt remains intubated and sedated. Pt is in the prone position per chart. Pt remains on Vital AF 1.2 trickle feeding currently at 10 mL/hr Recommended considering TPN if tube feeding rate is unable to be increased. Pt is receiving propofol at 22.6 mL/hr per chart which provides 597 kcal. Will continue to monitor 10/12: Follow up. Pt remains intubated and sedated with Propofol and Versed. Pt paralyzed with Nimbex. Pt now on Levophed, currently at 10 mcg/min. Pt on trickle TF currently, pt with ileus per MD notes. Spoke with Dr. Lowry over the phone, RD recommended considering TPN as pt continues to not meet needs with TF and currently with an ileus. stated that he would prefer to utilize the gut for now and will re-evaluate. RD requested Phos and Mg be drawn in case TPN required tomorrow to evaluate for replacements and initiation. Noted afternoon Phos and Mg WNL. Chart reviewed, plan for trach placement. TPN and TF rec's provided. Will continue to monitor. 10/09: Follow up. Chart reviewed. MD note indicates pt is in the supine position. Per documentation, pt is receiving TF at 30mL/hr not meeting kcal or protein needs. Current recommendations remain appropriate recommend increasing rate to 60 mL/hr. Will continue to monitor. 10/05: Follow up. Chart reviewed. Pt remains intubated and was in the supine position overnight. Pt is no receiving propofol at this time. Pts tube feed is at 20 mL/hr per chart not meeting kcal or protein needs. Tube feed recommendations provided. Will continue to monitor. 10/01: Follow up. Pt remains intubated, sedated on Propofol, and paralyzed. Pt requiring to be proned. TF rate decreased to 20 ml/hr currently- not meeting kcal or protein needs. TF rec's provided. Chart reviewed. Will continue to monitor. 09/29: Follow up. Pt remains intubated, sedated on high dose Propofol, and paralyzed. Pt requiring to be in intermittent prone positioning. TF infusing at 35 ml/hr, not meeting protein needs. TF rec's provided. Chart reviewed. Will continue to monitor. 09/25: Follow up. Chart reviewed. Pt remains intubated and sedated. Pt is receiving propofol at 7.8 mL/hr which provides 205 lipid kcal. TF is infusing at 20 mL/hr. Recommend modifying tube feed formula to Vital High Protein at this time. Will continue to monitor. 09/22: Follow up. Pt remains intubated, sedated, and paralyzed. Pt requiring proning. TF infusing at 10 ml/hr and TPN weaned to 20 ml/hr. Chart reviewed. TF and TPN rec's provided pending ability to advance TF. Will continue to monitor. 09/18: Follow up. Chart reviewed. Pt remains intubated and sedated. Pt was started on tube feeding. Last recorded rate was 20 mL/hr this afternoon. Pt continues to receive TPN @ 42 mL/hr. Propofol rate is at 13.4 mL/hr (provides 354 kcal). Recommendations provided. Will continue to monitor 09/15: Follow up. Pt remains intubated, sedated on Propofol at 19.6 ml/hr, and paralyzed. Pt continues on TPN at 42 ml/hr, not meeting needs. Pt continues with persistent ileus and is receiving enemas and suppositories. Pt requiring daily proning 2/2 respiratory status. TF order remains, recommend NPO for now. TPN goal rec's provided, continues at 42 ml/hr. Chart reviewed. Will continue to monitor. 09/11: Follow up. Chart reviewed. Pt remains intubated and sedated. Pt is receiving 30 mL/hr of propofol per documentation which provides 792 lipid kcal. Tube feeding has been held due to abdominal distention and pt was started on TPN @ 42 mL/hr today. MD note indicates pt has an ileus. Recommendations provided. Will continue to monitor. 09/07: Follow up. Chart reviewed. Pt remains intubated and sedated. Pt is receiving 23.6 mL/hr of propofol per documentation which provides 623 lipid kcal. TF was at 20 mL/hr last night per chart. Per MD note, pts abdomen is distended and has not had a BM. Will continue to monitor. 09/04: Follow up. Pt remains intubated and sedated. Pt is receiving 9 mL/hr of propofol per documentation, which provides 238 lipid kcal. TF was at 20 mL/hr per chart yesterday. No additional administration rate is available. Will continue to monitor. 09/02: Follow up. Pt remains intubated, paralyzed, and sedated on Propofol and Versed. Pt requiring proning. TF rate at 10 ml/hr per TF documentation yesterday- inadequate EN currently, no additional EN administration available per chart. Recommend continuing EN while pt is proned by placing them in reverse Trendelenburg position. If unable to advance TF to goal rate, recommend considering PN. Chart reviewed. Will continue to monitor. 08/29: Initial encounter with patient. Pt is sedated and orally intubated. Pt was not able to provide a nutrition Hx at the time of visit. Unable to observe oral cavity or perform a nutrition focused physical exam. Jevity 1.2 infusing at 20ml hr with a goal of 50ml/hr. Propofol provides 1.1kcal/ml EN provides 576 kcals, 26.64g of protein, and 387.36ml of free H2O Principal Problems/Diagnoses: CoVID 19 pneumonia PMH: No significant medical Hx, overweight/obesity GI: round, firm abdomen, last recorded BM 10/22, liquid stools Skin: stage 2 right ear pressure ulcer, penis ischemic edema, bilateral knees- ischemic edema, scrotal abrasion, Labs: 10/23: Na 138, K 3.5, BUN 20, Cr 0.76, Glu 114, Ca 8.6 10/20: Na 136, K 5, BUN 12, Cr 0.6, Gluc 108, Phos 5.9, Mg 2.4, POC Gluc 103-115 10/16: Na 143, K 3.4, BUN 10, Cr 0.51, Glu 101 10/12: Na 139, K 4.1, BUN 20, Cr 0.57, Cl 103, CO2 25, Gluc 135, Phos 3.3, Mg 1.8 10/09: Na 140, K 3.4, BUN 15, Cr 0.44, Glu 103 10/05: Na 139, K 3.3, BUN 15, Cr 0.42, Glu 113, Ca 8.2 10/01: Na 139, K 4, BUN 12, Cr 0.59, Gluc 141, POC Gluc 127-175 09/29: Na 138, K 2.9, BUN 5, Cr 0.39, Gluc 87, POC 107-116 Meds: antibiotic, propofol, fentanyl, metoprolol, multivitamin/minerals, vitamin D, vitamin C, pepcid, furosemide, rocuronium Ht: 67 in. Wt: 203.56 lbs (10/17) 156 lbs- questionable wt (10/16) 206 lbs (10/12) 212 lbs (10/09) 236 lbs (10/05) 251 lbs (09/28) 253.5 lbs (09/25) 254.31 lb, 200.44lbs (08/29) - admit wt BMI: 31.4kg/m2 (weight used- 200 lbs) IBW: 148 lbs Malnutrition Evaluation (10/24/2019) The patient does not meet criteria for a specified degree of malnutrition at this time. Will re-evaluate at follow-up as appropriate. Intake adequacy: TF not meeting needs, Propofol providing additional kcal Wt loss: pt with wt fluctuations since admit related to fluid Fat loss: JACOB per current isolation protocol- unable to complete NFPE, BMI indicative of adequate fat stores Muscle loss: JACOB per current isolation protocol- unable to complete NFPE Edema: no edema per MD note Functional status: JACOB due to intubation Nutrition Prescription (Diet Order): Vital High Protein infusing at 30 mL/hr + Beneprotein BID (provides 770 kcal and 75 g protein), propofol providing additional 298 kcal. Pt received 1080 mL tube feeding yesterday as documented Estimated Nutritional Needs: 4700-1262 calories/day (22-25 kcal/kg IBW) 101-135 g protein/day (1.5-2 g pro/kg IBW) Diet Adequacy: not meeting calorie needs, Not meeting protein needs Diet Education Needs Assessment: Diet education not indicated. Nutrition Care Level: high- not meeting needs Nutrition Diagnosis: Inadequate energy and protein intake related to intubation as evidenced by pt requiring alternative means of nutrition. Goal: Patient will meet 75-100% of estimated needs by follow up Progress: goal not met Interventions: Composition, Rate, Route, Recommended modifications Monitoring/Evaluation: Total energy intake, Total protein intake, Formula/Solution, Prescription medication, Weight change Signed: Nina Reese, RD, LD
--- NOTE | 2019-10-24 16:35 | Progress Note ---
DATE: 10/24/2019 CONSULTANTS: 1. Dr. Lowry, cloth weaver. 2. Dr. Maguire, Infectious Disease. 3. Dr. Casas, cardiology. 4. Dr. Johnson, Nephrology. SUBJECTIVE: The patient remains intubated and sedated, tolerating supine position. PHYSICAL EXAMINATION: VITAL SIGNS: Temperature 99.6, pulse is 121, respirations 32, blood pressure 129/61, pulse oximetry 90% on the vent. GENERAL: Intubated and sedated. LUNGS: Decreased breath sounds. CARDIOVASCULAR: Tachycardic. S1 and S2 heard. ABDOMEN: Soft. MUSCULOSKELETAL: Generalized edema. NEUROLOGIC: Sedated. SKIN: Dry with multiple pressure ulcers. LABORATORY DATA: WBC 14.23, hemoglobin 7.7, hematocrit 25.1, platelet is 103. Sodium 128, potassium 3.5, CO2 of 28, BUN 20, creatinine 0.76, estimated GFR is 60, calcium 8.6, total bilirubin 0.4, AST 16, ALT 21, alkaline phosphate 151. IMPRESSION: 1. Acute respiratory failure due to COVID-19 pneumonia. He remains intubated and sedated. Vent management per cloth weaver. 2. Leukocytosis. Likely due to multifocal pneumonia. Continue cefepime per ID. 3. Chronic anemia. Hemoglobin is stable at 7.7. We will continue to monitor. 4. Hypokalemia. Replace per renal. 5. Thrombocytopenia. Resolved. 6. Anasarca. Diuretics per Renal. 7. Tachycardia. We will continue beta blockers per Cardiology. 8. Deep venous thrombosis prophylaxis. On Lovenox subcutaneous. PLAN: Continue supportive therapy, antibiotics, and tracheostomy is planned for Sunday. Dictated by SNEHAL Laguerre Taylor Aparicio MD MY/MODL /[id number]
--- NOTE | 2019-10-24 16:50 | NUR ---
Infectious disease progress note Patient seen and examined chart review case was discussed with medical team this is October 22, 2019. Patient remains in intensive care unit The patient is now in the prone position. He remains on rocuronium at 0.006 as well as Versed at 10 mg an hour, fentanyl at 300, and propofol at 15. He is currently on a pressure control mode of ventilation set at a rate of 32 with a FiO2 of 40%, and a PEEP of 6. His pressure above PEEP is 28. His tidal volumes with these settings are in the 400 range. PHYSICAL EXAMINATION: VITAL SIGNS: The patient is afebrile. pressors. He remains on Versed and fentanyl. HEENT: He has an oral endotracheal tube in place. Normocephalic There is an IJ line. The site looks clean. There is no drainage. There is an arterial line. chest with crackles bilateral CARDIAC: Reveals regular rate and rhythm with normal S1 and S2. LUNGS: Auscultation of lungs reveals clear breath sounds bilaterally. There are some rhonchi. ABDOMEN: Soft and nontender. There is no rebound or guarding. EXTREMITIES: Shows no leg edema or calf tenderness. There is no cyanosis or clubbing. SKIN: Shows no rashes. IMPRESSION: 1. Acute respiratory failure. 2. Viral pneumonia and coronavirus disease-19 infection. 3. Anasarca. 4. Anemia secondary to chronic blood loss. 5. Decubitus skin breakdown. 6. Thrombocytopenia. 7. Hypokalemia. patient remains in the clinical condition continue with supportive care as ordered discussed with medical team
--- NOTE | 2019-10-24 16:59 | Diagnostic Imaging Report ---
EXAM: ABDOMEN-1VIEW (KUB) DATE: 10/24/2019 4:10 PM INDICATION: NG tube placement COMPARISON: None FINDINGS/IMPRESSION: Enteric tube identified coursing below the diaphragm with distal tip terminating within the left upper quadrant in the expected region of the gastric fundus. Bowel gas pattern is nonspecific but appears nonobstructive. No abnormal intraabdominal calcification is appreciated. No acute osseous abnormality is identified. Signed by: Dr. Jerad Child MD on 10/24/2019 4:56 PM
[2019-10-24 17:20] LABS: ABG PCO2 50 mmHg (35-45); ABG PH 7.41 (7.35-7.45); ABG PO2 50 mmHg (80-105)
[2019-10-24 17:21] LABS: ABG HCO3 32 mmol/L (22-26); ABG TCO2 33
[2019-10-24] MEDS: METOPROLOL TARTRATE INJ 1 MG/ML VIAL IV PRN (18:36)
[2019-10-24] MEDS: ROCURONIUM BROMIDE 1,250 MG in SODIUM CHLORIDE 0.9% 250ML 125 ML IV SCH (19:00)
[2019-10-24] MEDS: ACETAZOLAMIDE SODIUM 500 MG/VIAL IV SCH (21:45)
[2019-10-25] VITALS (24 sets, daily range): BP systolic 92–166; BP diastolic 46–79
--- NOTE | 2019-10-25 00:37 | Progress Note ---
DATE: 10/24/2019 Cardiology Progress Note SUBJECTIVE: Remains intubated and sedated. OBJECTIVE: VITAL SIGNS: Temperature 100, heart rate 117, respiratory rate 32, blood pressure 147/75, O2 saturation 96% on vent support. GENERAL: Intubated and sedated. NECK: Supple. CHEST: With decreased breath sounds. CARDIOVASCULAR: Regular rate and rhythm. Normal S1, S2. ABDOMEN: Soft. Bowel sounds positive. EXTREMITIES: With trace edema. CARDIOVASCULAR MEDICATIONS: Reviewed. Acetazolamide 250 mg every 12 hours, KCl 40 mEq t.i.d., metoprolol tartrate 5 mg q.6 hours p.r.n., metoprolol tartrate 25 mg q.12 hours, furosemide 10 mg/hour, Lovenox 40 mg subcu q.12 hours. STUDIES: Reviewed. White blood cells 14, hemoglobin 7.7, platelets 403. Sodium 138, potassium 3.5, chloride 98, bicarbonate 28, BUN 20 and creatinine 0.7, glucose 114, calcium 8.6, AST 16, ALT 24, total bilirubin 0.4, alkaline phosphatase 151, total protein 7.4, albumin 2.5. ABG; 7.4 pH, pCO2 50, PO2 50. ASSESSMENT AND PLAN: 1. Acute on chronic diastolic heart failure. 2. Hypertension. 3. Obesity. 4. Acute respiratory failure in the setting of COVID-19 infection, community-acquired pneumonia with prolonged respiratory failure and intubation. RECOMMEND: Continue current cardiovascular medications including the beta freddie p.r.n. Possible trach soon. MD OPAL Del Valle/ANGELA /[id number]
[2019-10-25] MEDS: FENTANYL 2000MCG/NS 250 250 ML IV PRN ×3 (00:38→15:50)
[2019-10-25] MEDS: SUCRALFATE 1 GM/10 ML SUSP NG SCH ×4 (00:41→17:56)
[2019-10-25] MEDS: EYE LUBRICANT OPTH OINT 3.5GM TUBE OP SCH ×4 (00:41→17:56)
[2019-10-25] MEDS: MIDAZOLAM HCL 5MG/ML 10ML VIAL 100 ML IV PRN ×4 (00:45→23:21)
[2019-10-25] MEDS: PROPOFOL IV EMULSION 10MG/ML 100 ML IV PRN ×3 (03:46→16:42)
[2019-10-25] MEDS: FUROSEMIDE INJ 100 MG in SODIUM CHLORIDE 0.9% 100 ML 90 ML IV SCH ×3 (03:46→23:19)
[2019-10-25 06:01] LABS: BASOPHILS % 0.3 % (0.0-1.0); EOSINOPHILS # (AUTO) 1.2 (0.0-0.4); EOSINOPHILS % 9.4 % (0.0-6.0); HEMATOCRIT 23.7 % (38.2-49.6); HEMOGLOBIN 7.1 g/dL (14.0-18.0); LYMPHOCYTES # (AUTO) 0.8 (1.0-3.2); LYMPHOCYTES % 5.9 % (18.0-39.1); MEAN CORPUSCULAR HEMOGLOBIN 27.2 pg (28-32); MEAN CORPUSCULAR VOLUME 90.8 fL (81-99); MONOCYTES # (AUTO) 1.2 (0.2-0.8); MONOCYTES % 8.9 % (4.4-11.3); NEUTROPHILS # (AUTO) 9.5 (2.1-6.9); NEUTROPHILS % 73.7 % (38.7-80.0); PLATELET COUNT 358 x10e3/uL (140-360); RED BLOOD COUNT 2.61 x10e6/uL (4.3-5.7)
[2019-10-25 06:17] LABS: ALANINE AMINOTRANSFERASE 22 IU/L (0-55); ALBUMIN 2.4 g/dL (3.5-5.0); ALBUMIN/GLOBULIN RATIO 0.5 (0.8-2.0); ALKALINE PHOSPHATASE 135 IU/L (40-150); ANION GAP 11.4 mmol/L (8-16); BLOOD UREA NITROGEN 20 mg/dL (7-26); BUN/CREATININE RATIO 26 (6-25); CALCIUM 8.7 mg/dL (8.4-10.2); CARBON DIOXIDE 33 mmol/L (22-29); CHLORIDE 98 mmol/L (98-107); CREATININE, SERUM 0.77 mg/dL (0.72-1.25); EST GLOMERULAR FILTRATION RATE > 60 ML/MIN (60-); GLUCOSE 98 mg/dL (74-118); PHOSPHORUS 3.7 MG/DL (2.3-4.7); POTASSIUM 3.4 mmol/L (3.5-5.1); SODIUM 139 mmol/L (136-145)
[2019-10-25] MEDS: ENOXAPARIN SOD INJ 40 MG/0.4 ML SYR SC SCH ×2 (06:35→17:56)
[2019-10-25] MEDS: TOBRAMYCIN 40 MG/ML 2ML VIAL NEB SCH ×2 (07:15→19:25)
[2019-10-25] MEDS ORDERED: POTASSIUM CHLORIDE 20MEQ/100ML 100 ML IV ONE (08:00)
[2019-10-25 08:06] LABS: ABG HCO3 35 mmol/L (22-26); ABG PCO2 58 mmHg (35-45); ABG PO2 67 mmHg (80-105); ABG TCO2 36
[2019-10-25] MEDS: POTASSIUM CHLORIDE 20MEQ/15ML UDC NG SCH ×3 (08:38→21:00)
[2019-10-25] MEDS: CHOLECALCIFEROL 1,000 UNIT TAB PO SCH (08:43)
[2019-10-25] MEDS: FAMOTIDINE 20 MG/2 ML VIAL IV SCH ×2 (08:43→21:00)
[2019-10-25] MEDS: ASCORBIC ACID 500 MG TAB PO SCH ×2 (08:43→21:00)
[2019-10-25] MEDS: ACETAZOLAMIDE SODIUM 500 MG/VIAL IV SCH ×2 (08:43→21:00)
[2019-10-25] MEDS: ZINC SULFATE 220 MG CAP PO SCH (08:43)
[2019-10-25] MEDS: MULTIVITAMINS/MINERALS TAB PO SCH (08:43)
[2019-10-25] MEDS: METOPROLOL TARTRATE 25 MG TAB PO SCH ×2 (08:43→21:00)
[2019-10-25] MEDS: ACETAMINOPHEN 325 MG TAB NG PRN ×2 (08:44→17:56)
--- NOTE | 2019-10-25 10:28 | Progress Note ---
DATE: SUBJECTIVE: The patient is now in the supine position. He is on a pressure control mode of ventilation set at a rate of 30 with a FiO2 of 50% and PEEP of 6. His pressure above PEEP is 26. He is on Versed at 8 as well as fentanyl at 300 and propofol at 20. He is off rocuronium. PHYSICAL EXAMINATION: VITAL SIGNS: Blood pressure is 110/56, saturation is 95% on the above-mentioned settings. His heart rate is 110 to 120. HEENT: Shows conjunctival injection and irritation of the right eye. There appears to be a small corneal abrasion. LYMPHATIC: Shows no submandibular, cervical, or supraclavicular adenopathy. CARDIAC: Reveals a regular rate and rhythm with normal S1 and S2. LUNGS: Auscultation of lungs reveals rhonchorous breath sounds bilaterally. There is no wheezing. ABDOMEN: Soft and nontender. There is no rebound or guarding. EXTREMITIES: Shows no leg edema or calf tenderness. There is no cyanosis or clubbing. SKIN: Shows no rashes. NEUROLOGICAL: Shows no focal abnormalities. LABORATORY DATA: White blood cell count is 12.9 and hemoglobin is 7.1. The platelet count is 358. The BUN to creatinine ratio is normal. The other electrolytes are within normal limits. The albumin is 2.4. RADIOGRAPHIC DATA: Ultrasound shows some sludge in the gallbladder as well as some splenomegaly. Abdominal x-ray shows enteral feeding tube to be in good position. IMPRESSION: 1. Acute respiratory failure. 2. Viral pneumonia and COVID-19 infection. 3. Anemia secondary to chronic blood loss. 4. Splenomegaly. 5. Corneal abrasion on the right side. 6. Hypokalemia. 7. Intestinal ileus. PLAN: 1. Continue current ventilator settings. 2. Wean Versed as tolerated. Continue fentanyl and propofol. 3. Continue Lovenox. 4. Continue enteral feedings. 5. Begin antibiotic ointment in the right eye and obtain Ophthalmology consultation. 6. Case discussed with nursing, Respiratory, Internal Medicine, Infectious Disease. Greater than 35 minutes in direct critical care time. MD SAMINA Angel/REYESL /[id number]
[2019-10-25] MEDS: CEFEPIME 1GM/NS 0.9% 50 ML 50 ML IV SCH ×2 (11:16→23:21)
[2019-10-25] MEDS ORDERED: SODIUM CHLORIDE 0.9% 250ML 250 ML IV ONE (12:45)
[2019-10-25] MEDS: ERYTHROMYCIN (OPTH) 3.5 GM OINT OP SCH ×3 (14:38→21:00)
[2019-10-25 15:50] LABS: ABG HCO3 34 mmol/L (22-26); ABG PCO2 53 mmHg (35-45); ABG PH 7.42 (7.35-7.45); ABG PO2 71 mmHg (80-105); ABG TCO2 35
--- NOTE | 2019-10-25 15:55 | Progress Note ---
DATE: 10/25/2019 Nephrology Followup Note. SUBJECTIVE: Followed up for fluid overload and hypokalemia. Clinically, described as stable. Remains on ventilator following COVID pneumonia. OBJECTIVE: VITAL SIGNS: Intake 1620, output 3100 in the last 24 hours on IV Lasix infusion. Blood pressure is stable 110/56, not on any vasopressors, pulse 120 per minute. NECK: Without JVP. RESPIRATIONS: Bilateral air entry. CARDIOVASCULAR: Regular rate and rhythm, S1, S2. ABDOMEN: Nondistended. EXTREMITIES: Without pitting edema. LABORATORY DATA: Hemoglobin 7.1, white count 12.9, normal platelet count. Creatinine 0.7, BUN 20, potassium 3.4, sodium 139, bicarb 33. IMPRESSION: 1. Fluid overload, continues to respond to IV Lasix infusion. Adjustment of IV Lasix drip per ICU. 2. Hypokalemia, continuing regular supplementation through NG tube three times a day with p.r.n. IV replacement. 3. Renal function remains preserved, continue to monitor. Marcos Marsh MD [facility]/MODL /[id number]
--- NOTE | 2019-10-25 16:37 | NUR ---
infectious disease parents note patient seen and examined chart reviewed the events noted. Patient Ms. intensive care unit. Discussed with the medical team SUBJECTIVE: The patient is now in the supine position. He is on a pressure control mode of ventilation set at a rate of 30 with a FiO2 of 50% and PEEP of 6. His pressure above PEEP is 26. He is on Versed at 8 as well as fentanyl at 300 and propofol at 20. He is off rocuronium. PHYSICAL EXAMINATION:this attempts to wean him off sedation VITAL SIGNS: Blood pressure is 110/56, saturation is 95% on the above-mentioned settings. His heart rate is 110 to 120. HEENT: Shows conjunctival injection and irritation of the right eye. There appears to be a small corneal abrasion. LYMPHATIC: Shows no submandibular, cervical, or supraclavicular adenopathy. CARDIAC: Reveals a regular rate and rhythm with normal S1 and S2. LUNGS: Auscultation of lungs reveals rhonchorous breath sounds bilaterally. There is no wheezing. ABDOMEN: Soft and nontender. There is no rebound or guarding. EXTREMITIES: Shows no leg edema or calf tenderness. There is no cyanosis or clubbing. SKIN: Shows no rashes. NEUROLOGICAL: Shows no focal abnormalities. LABORATORY DATA: White blood cell count is 12.9 and hemoglobin is 7.1. The platelet count is 358. The BUN to creatinine ratio is normal. The other electrolytes are within normal limits. The albumin is 2.4. RADIOGRAPHIC DATA: Ultrasound shows some sludge in the gallbladder as well as some splenomegaly. Abdominal x-ray shows enteral feeding tube to be in good position. IMPRESSION: 1. Acute respiratory failure. 2. Viral pneumonia and COVID-19 infection. 3. Anemia secondary to chronic blood loss. 4. Splenomegaly. 5. Corneal abrasion on the right side. 6. Hypokalemia. 7. Intestinal ileus. infectious disease for you seem to be stable recommend to continue supportive care to wean him down slowly aspiration precaution surveillance for sepsis as mentioned will follow
--- NOTE | 2019-10-25 17:44 | Progress Note ---
DATE: 10/25/2019 CONSULTANTS: 1. Dr. Lowry, floor runner. 2. Dr. Maguire, Infectious Disease. 3. Dr. Casas, Cardiology. 4. Dr. Johnson, Nephrology. SUBJECTIVE: The patient remains intubated and sedated, in supine position. Family at window side and visiting. PHYSICAL EXAMINATION: VITAL SIGNS: Temperature 98.2, pulse is 118, respirations 31, blood pressure 103/55, pulse ox is 93% on the vent. GENERAL: Intubated and sedated. LUNGS: With decreased breath sounds. CARDIOVASCULAR: Tachycardic. ABDOMEN: Soft. MUSCULOSKELETAL: Generalized edema. NEUROLOGIC: Sedated. LABORATORY DATA: WBC 12.91, hemoglobin 7.1, hematocrit 23.7, platelet 358. Sodium 139, potassium 3.4, BUN 20, creatinine 0.77, estimated GFR greater than 60, AST 22, ALT 22, alkaline phosphate 135. ABG, pH 7.43, pCO2 53, PO2 71, bicarb 34. IMPRESSION: 1. Acute respiratory failure due to COVID-19 pneumonia. He remains intubated and sedated. Vent management per floor runner. Surgical team consulted for tracheostomy. 2. Leukocytosis. Likely due to multifocal pneumonia. Continue cefepime per ID. 3. Chronic anemia. Hemoglobin is 7.1. We will continue to monitor and transfuse if hemoglobin is less than 7. 4. Hypokalemia. Replace per Renal. 5. Thrombocytopenia. Resolved. 6. Anasarca. Diuretics per Renal. 7. Tachycardia, Continue beta blockers per Cardiology. 8. Deep vein thrombosis prophylaxis. On Lovenox subcu. PLAN: To continue supportive therapy, antibiotics, and tracheostomy in 2 days. Dictated by SNEHAL Laguerre Yoletteching Nathen Aparicio MD MY/MODL /[id number]
[2019-10-25] MEDS: ROCURONIUM BROMIDE 1,250 MG in SODIUM CHLORIDE 0.9% 250ML 125 ML IV SCH (19:00)
--- NOTE | 2019-10-25 21:50 | Progress Note ---
DATE: 10/25/2019 Cardiology Progress Note SUBJECTIVE: Mr. Miles remains intubated and sedated. OBJECTIVE: VITAL SIGNS: Temperature 98.5, heart rate 118, sinus tachycardia on telemetry, blood pressure 103/55, respiratory rate 31, O2 saturation 93% on vent support. GENERAL: Awake today. The patient is opening eyes, however, not following commands, seems somewhat confused at this point. NECK: Supple. CHEST: Rales with decreased breath sounds. CARDIOVASCULAR: Regular rate and rhythm. Normal S1 and S2. ABDOMEN: Soft. EXTREMITIES: No edema. CARDIOVASCULAR MEDICATIONS: Reviewed. Lovenox, metoprolol, furosemide. STUDIES: Reviewed. Sodium 139, potassium 3.4, chloride 98, bicarbonate 33, BUN 20, creatinine 0.7, glucose 98. White blood cells 12.9, hemoglobin 7, and platelets 351. INR 1.2. AST 22, ALT 20. ASSESSMENT: A 44-year-old man with coronavirus disease 2019 infection, community-acquired pneumonia, acute respiratory failure, prolonged intubation, anemia, acute diastolic heart failure, hypertension, deconditioning. PLAN: 1. Continue vent weaning trial. 2. Rehab. 3. Continue current cardiovascular medications. John Romero MD [facility]/ANGELA /[id number]
[2019-10-26] VITALS (26 sets, daily range): BP systolic 97–159; BP diastolic 48–88
[2019-10-26] MEDS: EYE LUBRICANT OPTH OINT 3.5GM TUBE OP SCH ×2 (00:09→06:00)
[2019-10-26] MEDS: PROPOFOL IV EMULSION 10MG/ML 100 ML IV PRN ×5 (00:15→22:41)
[2019-10-26] MEDS: SUCRALFATE 1 GM/10 ML SUSP NG SCH ×4 (00:50→17:48)
[2019-10-26] MEDS: FENTANYL 2000MCG/NS 250 250 ML IV PRN ×3 (01:17→18:34)
[2019-10-26] MEDS: ENOXAPARIN SOD INJ 40 MG/0.4 ML SYR SC SCH (06:00)
[2019-10-26 06:34] LABS: BASOPHILS # (AUTO) 0.1 (0.0-0.1); BASOPHILS % 0.3 % (0.0-1.0); EOSINOPHILS # (AUTO) 1.3 (0.0-0.4); EOSINOPHILS % 8.6 % (0.0-6.0); HEMATOCRIT 27.6 % (38.2-49.6); HEMOGLOBIN 8.5 g/dL (14.0-18.0); LYMPHOCYTES # (AUTO) 0.8 (1.0-3.2); LYMPHOCYTES % 4.9 % (18.0-39.1); MEAN CORPUSCULAR HEMOGLOBIN 27.7 pg (28-32); MEAN CORPUSCULAR HGB CONC 30.8 g/dL (31-35); MEAN CORPUSCULAR VOLUME 89.9 fL (81-99); MONOCYTES # (AUTO) 1.5 (0.2-0.8); MONOCYTES % 9.7 % (4.4-11.3); NEUTROPHILS # (AUTO) 11.6 (2.1-6.9); NEUTROPHILS % 74.7 % (38.7-80.0); PLATELET COUNT 364 x10e3/uL (140-360); RED BLOOD COUNT 3.07 x10e6/uL (4.3-5.7); RED CELL DISTRIBUTION WIDTH 15.3 % (11.7-14.4)
[2019-10-26] MEDS: MIDAZOLAM HCL 5MG/ML 10ML VIAL 100 ML IV PRN ×2 (06:57→23:12)
[2019-10-26] MEDS: ACETAMINOPHEN 325 MG TAB NG PRN ×2 (06:58→21:43)
[2019-10-26 07:06] LABS: ALANINE AMINOTRANSFERASE 19 IU/L (0-55); ALBUMIN 2.6 g/dL (3.5-5.0); ALBUMIN/GLOBULIN RATIO 0.5 (0.8-2.0); ALKALINE PHOSPHATASE 116 IU/L (40-150); ANION GAP 14.3 mmol/L (8-16); BLOOD UREA NITROGEN 21 mg/dL (7-26); BUN/CREATININE RATIO 27 (6-25); CALCIUM 8.7 mg/dL (8.4-10.2); CARBON DIOXIDE 32 mmol/L (22-29); CHLORIDE 96 mmol/L (98-107); CREATININE, SERUM 0.77 mg/dL (0.72-1.25); EST GLOMERULAR FILTRATION RATE > 60 ML/MIN (60-); GLUCOSE 117 mg/dL (74-118); POTASSIUM 3.3 mmol/L (3.5-5.1); SODIUM 139 mmol/L (136-145)
[2019-10-26] MEDS: TOBRAMYCIN 40 MG/ML 2ML VIAL NEB SCH ×2 (07:15→19:45)
[2019-10-26] MEDS ORDERED: POTASSIUM CHLORIDE 20MEQ/100ML 200 ML IV ONE (07:45)
[2019-10-26 08:01] LABS: ABG PCO2 63 mmHg (35-45); ABG PH 7.36 (7.35-7.45)
[2019-10-26 08:02] LABS: ABG HCO3 35 mmol/L (22-26); ABG PO2 76 mmHg (80-105); ABG TCO2 37
[2019-10-26] MEDS: ERYTHROMYCIN (OPTH) 3.5 GM OINT OP SCH ×4 (08:43→21:43)
[2019-10-26] MEDS: FAMOTIDINE 20 MG/2 ML VIAL IV SCH ×2 (08:43→21:42)
[2019-10-26] MEDS: POTASSIUM CHLORIDE 20MEQ/15ML UDC NG SCH ×4 (08:43→21:43)
[2019-10-26] MEDS: MULTIVITAMINS/MINERALS TAB PO SCH (08:44)
[2019-10-26] MEDS: ZINC SULFATE 220 MG CAP PO SCH (08:44)
[2019-10-26] MEDS: ASCORBIC ACID 500 MG TAB PO SCH ×2 (08:44→21:43)
[2019-10-26] MEDS: FUROSEMIDE INJ 100 MG in SODIUM CHLORIDE 0.9% 100 ML 90 ML IV SCH ×2 (08:44→13:22)
[2019-10-26] MEDS: CHOLECALCIFEROL 1,000 UNIT TAB PO SCH (08:44)
--- NOTE | 2019-10-26 09:10 | NUR ---
HEMATOLOGY/ONCOLOGY PROGRESS NOTE: HPI: Events noted. Patient remains intubated and sedated in the ICU. Planning for trach tomorrow. Discussed with nurse at bedside. ROS: 14 point ROS unable to obtain secondary to patient intubated/sedated. PHYSICAL EXAM: Vitals: Reviewed as per EMR. Temp: 100.3 degF HR: 125 RR: 36 BP: 97/48 PE not performed due to COVID-19 contact precautions. LABORATORY/RADIOLOGY DATA: Reviewed per EMR. ASSESSMENT AND PLAN: Mr. Miles is a 44-year-old male with past medical history of hypertension who was admitted on 08/24/2019 due to cough and fever. Patient was found to be positive for COVID-19. Intubated due to worsening respiratory status. Patient has been treated with full-dose Lovenox since 09/08/19. Has required PRBC previously during admission. Patient now with dropping platelet count and recurrent anemia requiring PRBC transfusion. Hematology/Oncology has been consulted to assist with the management. 1. Thrombocytopenia: Likely secondary to consumption for infection. DIC panel showed no coagulopathy, elevated fibrinogen, does not appear DIC. Acute hepatitis panel negative. Abdominal US without evidence of liver cirrhosis or splenomegaly. HIT panel negative on 09/15/2019. Repeat DIC panel does not appear DIC with elevated fibrinogen level. THROMBOCYTOPENIA RESOLVED, now with mild thrombocytosis which may be reactive. Continue on Lovenox 40mg sq BID, hold for planned procedure. Can move to full dose 1mg/kg BID if clear by other teams. Monitor closely. 2. Anemia: Anemia panel appears mixed picture AOCD + RODRIGUEZ with noted low B12 level. Macrocytosis probably combination of B12 deficiency and possibly also related to bone marrow suppression from viral infection. Ferritin mildly elevated, likely as acute phase reactant. Repeat ferritin significantly more elevated hold IV iron. Reticulocyte count and LDH mildly elevated, haptoglobin elevated, does not appear hemolysis. S/p multiple PRBC transfusions, last on 10/12/2019. Hemoglobin improved s/p 1 unit PRBC transfused on 10/24. Monitor. 3. COVID-19 PNA: In the ICU, pharmacologically sedated and intubated with weaning off vent as tolerated. On TPN. Undergoing intermittent proning. Pneumocystis carinii smear negative. Blood cultures from 10/08 negative, repeat blood cultures drawn 10/20 NGTD. Sputum culture from 10/11 with pseudomonas, fungal cultures pending. On IV antibiotics, leukocytosis stable. Pulmonary and infectious disease on board. 4. Melena/ileus/abd distention: On Pepcid IV q12h. Improved. Abdominal US with some billiary sludge and splenomegaly. On TFs with nutrition on board. 5. Fluid overload/oligoanuria: On Lasix, monitor UOP per Nephrology on board. 6. DVT proph: Continue on Lovenox 40mg sq BID, hold for planned procedure. 7. GOC: Trach scheduled per Pulmonary for now, Sunday. Above plan discussed with Dr. Lona Martinez. Thank you for the consult. I will be available. Please call with questions.
--- NOTE | 2019-10-26 09:41 | Progress Note ---
DATE: SUBJECTIVE: The patient is still in the supine position. He received his last dose of Lovenox this morning and preparation for tracheostomy tomorrow. The patient now remains on propofol at 35 along with fentanyl at 200 and Versed at 5. He is off rocuronium. He is receiving enteral feedings at 40 mL an hour. He remains on a PRVC mode of ventilation at a rate of 28 with a FiO2 of 50%. His PEEP is set at 6 and his pressure control above PEEP is 26. PHYSICAL EXAMINATION: VITAL SIGNS: Blood pressure is 97/48 and heart rate is 120 to 125. Saturation is 96%. T-max is 100.3. HEENT: Shows no facial swelling or erythema. LYMPHATIC: Shows no submandibular, cervical, or supraclavicular adenopathy. CARDIAC: Reveals regular rate and rhythm with normal S1 and S2. LUNGS: Auscultation of lungs reveals rhonchorous breath sounds bilaterally. There is no wheezing. ABDOMEN: Soft and nontender. There is no rebound or guarding. EXTREMITIES: Show no leg edema or calf tenderness. There is no cyanosis or clubbing. SKIN: Shows no rashes. NEUROLOGICAL: Shows no focal abnormalities. LABORATORY DATA: BUN to creatinine ratio is normal. Potassium is 3.3 and other electrolytes are within normal limits. White blood cell count is 15.5 and the hemoglobin is 8.5. The platelet count is 364. IMPRESSION: 1. Acute respiratory failure. 2. Viral pneumonia and COVID-19 infection. 3. Anemia secondary to chronic blood loss. 4. Splenomegaly. 5. Corneal abrasion. 6. Hypokalemia. 7. Intestinal ileus that is improving. 8. Tolerance to sedation. PLAN: 1. Continue current pressure control. 2. Continue Versed at 5 and fentanyl at 200. The patient is also on propofol. We will gradually try and decrease the sedatives over the next several days to week. 3. The patient is scheduled for tracheostomy tomorrow. 4. Continue Lasix drip and monitor fluid status. 5. Replace potassium. 6. The patient has completed antibiotics for Pseudomonas pneumonia. 7. Case discussed with steward/stewardess night nursing, day shift nursing, Respiratory, Infectious Disease, General Surgery, Internal Medicine, and administration. Greater than 35 minutes in direct critical care time. MD SAMINA Angel/REYESL /[id number]
--- NOTE | 2019-10-26 09:55 | Diagnostic Imaging Report ---
EXAMINATION: CHEST SINGLE (PORTABLE) INDICATION: Respiratory failure COMPARISON: Multiple prior chest x-rays including most recent on 10/23/2019. FINDINGS: TUBES and LINES: Endotracheal tube terminates at the level of the fred. Right PICC, left central venous catheter and subdiaphragmatic enteric tube are unchanged. LUNGS: Low lung volumes with no significant interval change in bilateral airspace opacities. PLEURA: Small bilateral pleural effusion is unchanged. HEART AND MEDIASTINUM: The cardiomediastinal silhouette is unchanged. BONES AND SOFT TISSUES: No acute osseous lesion. Soft tissues are unchanged. UPPER ABDOMEN: No free air under the diaphragm. IMPRESSION: 1. No significant interval change in radiographic appearance of the lungs. 2. Endotracheal tube terminates at the level of the fred which may be accentuated by patient positioning. Otherwise stable support lines and tubes as above. Signed by: Peter Gibbs MD on 10/26/2019 9:51 AM
[2019-10-26] MEDS: METOPROLOL TARTRATE 25 MG TAB PO SCH ×2 (10:22→21:43)
[2019-10-26] MEDS: CEFEPIME 1GM/NS 0.9% 50 ML 50 ML IV SCH ×2 (10:22→23:20)
[2019-10-26] MEDS ORDERED: BISACODYL 10 MG SUPP PR PRN (10:30)
[2019-10-26] MEDS: ALBUMIN 25% 25GM 100ML 0.25 GM/ML BTL IV SCH ×2 (13:23→17:48)
--- NOTE | 2019-10-26 13:47 | Progress Note ---
DATE: 10/26/2019 Nephrology Progress Note SUBJECTIVE: Followup for hypokalemia and fluid overload in the wake of COVID pneumonia. Remains on ventilator with stable hemodynamics, on IV Lasix infusion. OBJECTIVE: VITAL SIGNS: Stable. Blood pressure 137/78, pulse 120 per minute, and pulse oximetry 97% on a ventilator. HEENT: Normocephalic and atraumatic. RESPIRATION: Bilateral air entry, on respirator. CARDIOVASCULAR: Regular rate and rhythm. S1 and S2. ABDOMEN: Nondistended. EXTREMITIES: Without pitting edema. LABORATORY DATA: Potassium is 3.3, bicarb 32, BUN and creatinine normal. Albumin 2.6. IMPRESSION: 1. Hypokalemia, secondary to aggressive diuresis with IV Lasix infusion. a. We will increase regular potassium replacement to 40 mEq 4 times a day through feeding tube. Supplement further potassium by way of IV boluses. 2. Fluid overload. Continues on IV Lasix infusion with negative fluid balance. Continue fluid removal as recommended by ICU team. 3. Renal function remains preserved. Continue to monitor. Marcos Marsh MD [facility]/MODL /[id number]
--- NOTE | 2019-10-26 14:17 | Progress Note ---
DATE: 10/26/2019 CONSULTANTS: 1. Dr. Lowry, Sheet Metal Pattern Cutter. 2. Dr. Maguire, Infectious Disease. 3. Dr. Casas, Cardiology. 4. Dr. Rodríguez, Nephrology. SUBJECTIVE: The patient remains intubated and sedated in supine position. Had a visit from his mother yesterday. Planning tracheostomy tube tomorrow. PHYSICAL EXAMINATION: VITAL SIGNS: Temperature 98.5, pulse is 132, respirations 50, blood pressure 146/72, and pulse ox is 95% on the vent. GENERAL: Intubated and sedated. LUNGS: Clear with decreased breath sounds. CARDIOVASCULAR: Tachycardia. S1, S2 heard. ABDOMEN: Soft. MUSCULOSKELETAL: Generalized edema. NEUROLOGIC: Sedated. LABORATORY DATA: WBC 15.52, hemoglobin 8.5, and hematocrit 27.6. Sodium 139, potassium 3.3, BUN 21, creatinine 0.77, estimated GFR is greater than 60, glucose 134, and ferritin 968. Repeat blood cultures negative. IMAGING DATA: Chest x-ray, no significant interval change in radiographic appearance of the lungs. IMPRESSION: 1. Acute respiratory failure due to coronavirus disease-19 pneumonia. Intubated and sedated, vent management per power generation equipment repairer. Tracheostomy is planned for tomorrow per surgical team. 2. Leukocytosis. WBC 15. Continue cefepime per ID. 3. Chronic anemia. Hemoglobin is 8.5. Continue to monitor closely. 4. Hypokalemia. Replace per Renal. 5. Thrombocytopenia. Resolved. 6. Anasarca. Diuretics per renal. 7. Tachycardia. Heart rate in the 130s, continue beta-blockers per Cardiology. 8. Deep vein thrombosis prophylaxis. Lovenox subcu. We will hold Lovenox for tracheostomy tomorrow. PLAN: To continue current treatment and trach placement tomorrow. Dictated by SNEHAL Laguerre Taylor Aparicio MD [facility]/MODL /[id number]
[2019-10-26] MEDS: METOPROLOL TARTRATE INJ 1 MG/ML VIAL IV PRN (16:23)
[2019-10-26] MEDS ORDERED: MIDAZOLAM HCL 2 MG/2 ML VIAL IV STA (18:11)
[2019-10-26 20:28] LABS: ABG PCO2 52 mmHg (35-45); ABG PH 7.42 (7.35-7.45); ABG PO2 64 mmHg (80-105)
[2019-10-26 20:29] LABS: ABG HCO3 34 mmol/L (22-26); ABG TCO2 36
--- NOTE | 2019-10-26 20:59 | Progress Note ---
DATE: 10/26/2019 Cardiology Progress Note SUBJECTIVE: Mr. Miles remains intubated and sedated. OBJECTIVE: VITAL SIGNS: Temperature 98.3, heart rate 130, sinus tachycardia on telemetry, blood pressure 156/78, and O2 saturation 92%. GENERAL: Intubated and sedated. NECK: Supple. CHEST: With decreased breath sounds. CARDIOVASCULAR: Regular rate and rhythm. Normal S1, S2. ABDOMEN: Soft. Bowel sounds positive. EXTREMITIES: No edema. CARDIOVASCULAR MEDICATIONS: Reviewed. Potassium repletion. STUDIES: Reviewed. Sodium 139, potassium 3.3, chloride 96, bicarbonate 32, BUN 21, creatinine 0.7, glucose 117. White blood cells 15, hemoglobin 8.5, and platelets of 364. PT 16.5, PTT 37.7, INR 1.2. AST 15, ALT 19 ASSESSMENT: A 44-year-old man presents as COVID-19 patient with community- acquited pneumonia, acute respiratory failure, hypertension, [id number] diastolic heart failure, anemia. RECOMMEND: Continue current cardiovascular medications, likely trach tomorrow, then weaning per Pulmonary. John Romero MD [facility]/MODL /[id number] MTDD
[2019-10-26] MEDS: BALSAM PERU/CASTOR OIL 60 GM OINT...G. TP SCH (21:43)
--- NOTE | 2019-10-26 22:04 | NUR ---
infectious disease progress note The patient was seen and examined chart reviewed Remains in the critical care unit he patient is still in the supine position. He received his last dose of Lovenox this morning and preparation for tracheostomy tomorrow. The patient now remains on propofol at 35 along with fentanyl at 200 and Versed at 5. He is off rocuronium. He is receiving enteral feedings at 40 mL an hour. He remains on a PRVC mode of ventilation at a rate of 28 with a FiO2 of 50%. His PEEP is set at 6 and his pressure control above PEEP is 26. PHYSICAL EXAMINATION: VITAL SIGNS: Blood pressure is 97/48 and heart rate is 120 to 125. Saturation is 96%. T-max is 100.3. HEENT: Shows no facial swelling or erythema. LYMPHATIC: Shows no submandibular, cervical, or supraclavicular adenopathy. CARDIAC: Reveals regular rate and rhythm with normal S1 and S2. LUNGS: Auscultation of lungs reveals rhonchorous breath sounds bilaterally. There is no wheezing. ABDOMEN: Soft and nontender. There is no rebound or guarding. EXTREMITIES: Show no leg edema or calf tenderness. There is no cyanosis or clubbing. SKIN: Shows no rashes. NEUROLOGICAL: Shows no focal abnormalities. LABORATORY DATA: BUN to creatinine ratio is normal. Potassium is 3.3 and other electrolytes are within normal limits. White blood cell count is 15.5 and the hemoglobin is 8.5. The platelet count is 364. IMPRESSION: 1. Acute respiratory failure. 2. Viral pneumonia and COVID-19 infection. 3. Anemia secondary to chronic blood loss. 4. Splenomegaly. 5. Corneal abrasion. 6. Hypokalemia. 7. Intestinal ileus that is improving. 8. Tolerance to sedation. Discussed with medical team continue as ordered continue with supportive care recheck CBC to check in panel
[2019-10-27] VITALS (25 sets, daily range): BP systolic 90–157; BP diastolic 49–89
[2019-10-27] MEDS: SUCRALFATE 1 GM/10 ML SUSP NG SCH ×4 (00:39→18:00)
[2019-10-27] MEDS: PROPOFOL IV EMULSION 10MG/ML 100 ML IV PRN ×5 (02:03→21:33)
[2019-10-27] MEDS: FENTANYL 2000MCG/NS 250 250 ML IV PRN ×3 (03:37→12:35)
[2019-10-27] MEDS: MIDAZOLAM HCL 5MG/ML 10ML VIAL 100 ML IV PRN ×2 (04:46→08:36)
[2019-10-27 05:47] LABS: BASOPHILS % 0.2 % (0.0-1.0); EOSINOPHILS # (AUTO) 1.1 (0.0-0.4); HEMATOCRIT 24.9 % (38.2-49.6); HEMOGLOBIN 7.5 g/dL (14.0-18.0); LYMPHOCYTES # (AUTO) 0.9 (1.0-3.2); LYMPHOCYTES % 7.1 % (18.0-39.1); MEAN CORPUSCULAR HEMOGLOBIN 27.3 pg (28-32); MEAN CORPUSCULAR HGB CONC 30.1 g/dL (31-35); MEAN CORPUSCULAR VOLUME 90.5 fL (81-99); MONOCYTES # (AUTO) 1.1 (0.2-0.8); MONOCYTES % 9.4 % (4.4-11.3); NEUTROPHILS # (AUTO) 8.7 (2.1-6.9); NEUTROPHILS % 72.6 % (38.7-80.0); PLATELET COUNT 301 x10e3/uL (140-360); RED BLOOD COUNT 2.75 x10e6/uL (4.3-5.7); RED CELL DISTRIBUTION WIDTH 15.1 % (11.7-14.4)
[2019-10-27 06:33] LABS: ALANINE AMINOTRANSFERASE 19 IU/L (0-55); ALBUMIN 2.8 g/dL (3.5-5.0); ALBUMIN/GLOBULIN RATIO 0.6 (0.8-2.0); ALKALINE PHOSPHATASE 108 IU/L (40-150); ANION GAP 14.5 mmol/L (8-16); BLOOD UREA NITROGEN 23 mg/dL (7-26); BUN/CREATININE RATIO 32 (6-25); CALCIUM 8.7 mg/dL (8.4-10.2); CARBON DIOXIDE 31 mmol/L (22-29); CHLORIDE 97 mmol/L (98-107); CREATININE, SERUM 0.71 mg/dL (0.72-1.25); EST GLOMERULAR FILTRATION RATE > 60 ML/MIN (60-); GLUCOSE 98 mg/dL (74-118); POTASSIUM 3.5 mmol/L (3.5-5.1); SODIUM 139 mmol/L (136-145)
[2019-10-27 06:52] LABS: ABG PCO2 56 mmHg (35-45); ABG PH 7.41 (7.35-7.45)
[2019-10-27 06:53] LABS: ABG HCO3 35 mmol/L (22-26); ABG PO2 106 mmHg (80-105); ABG TCO2 37
[2019-10-27] MEDS: TOBRAMYCIN 40 MG/ML 2ML VIAL NEB SCH ×2 (07:00→19:02)
[2019-10-27] MEDS ORDERED: POTASSIUM CHLORIDE 20MEQ/100ML 100 ML IV ONE (07:30)
[2019-10-27] MEDS: FUROSEMIDE INJ 100 MG in SODIUM CHLORIDE 0.9% 100 ML 90 ML IV SCH ×2 (08:29→08:32)
[2019-10-27] MEDS: FAMOTIDINE 20 MG/2 ML VIAL IV SCH ×2 (08:30→21:00)
[2019-10-27] MEDS: POTASSIUM CHLORIDE 20MEQ/15ML UDC NG SCH ×4 (08:30→21:00)
[2019-10-27] MEDS: ZINC SULFATE 220 MG CAP PO SCH (08:31)
[2019-10-27] MEDS: BALSAM PERU/CASTOR OIL 60 GM OINT...G. TP SCH ×2 (08:31→21:00)
[2019-10-27] MEDS: MULTIVITAMINS/MINERALS TAB PO SCH (08:31)
[2019-10-27] MEDS: ERYTHROMYCIN (OPTH) 3.5 GM OINT OP SCH ×4 (08:31→22:39)
[2019-10-27] MEDS: ASCORBIC ACID 500 MG TAB PO SCH ×2 (08:31→21:00)
[2019-10-27] MEDS: CHOLECALCIFEROL 1,000 UNIT TAB PO SCH (08:31)
[2019-10-27] MEDS: METOPROLOL TARTRATE 25 MG TAB PO SCH ×2 (08:31→22:39)
[2019-10-27] MEDS: ACETAMINOPHEN 325 MG TAB NG PRN ×2 (08:32→22:40)
--- NOTE | 2019-10-27 08:54 | NUR ---
Pt's mother left a voicemail message requesting a call. Kier Hand called pt's mother to follow up. Pt's mother states she, her family and friends visited [facility]. Pt's mother was grateful to be allowed to see her son along w/ her . Pt's mother stated "there have been a lot of prayers" for her son. Pt's mother requested prayer prior to scheduled procedure. Kier Hand provided empathic listening and prayer. Facilitated identification of emotions. Will continue to follow as able. WILMAN Spiveylain Spiritual Care Department O: [phone]
[2019-10-27] MEDS ORDERED: ACETAZOLAMIDE SODIUM 500 MG/VIAL IV SCH (09:00)
[2019-10-27] MEDS ORDERED: BUPIVACAINE 0.5%/EPI 30 ML SDV INJ ONE (09:40)
[2019-10-27] MEDS: CEFEPIME 1GM/NS 0.9% 50 ML 50 ML IV SCH (12:31)
--- NOTE | 2019-10-27 12:32 | Progress Note ---
DATE: Pulmonary Critical Care Progress Note SUBJECTIVE: The patient went for tracheostomy this morning. He is back from his tracheostomy. Surgical site looks clean. He is on Versed and fentanyl. He is on pressure control mode of ventilation at a rate of 30 with a PEEP of 6 and a pressure above PEEP of 26. His tidal volumes are 350 with this setting. His FiO2 is set at 65%. PHYSICAL EXAMINATION: VITAL SIGNS: The patient is afebrile. The blood pressure is 157/90, saturation is 98%. The pulse is 115. HEENT: Shows no facial swelling or erythema. LYMPHATIC: Shows no submandibular, cervical, or supraclavicular adenopathy. CARDIAC: Reveals regular rate and rhythm with normal S1, S2. LUNGS: Auscultation of lungs reveals crackles and rhonchi at the bases. There is no wheezing. ABDOMEN: Soft, nontender. There is no rebound or guarding. EXTREMITIES: Shows no leg edema or calf tenderness. There is no cyanosis or clubbing. SKIN: Shows no rashes. LABORATORY DATA: White blood cell count is 12, hemoglobin is 7.5, and the platelet count is 301,000. The BUN to creatinine ratio is normal. Other electrolytes are within normal limits. IMPRESSION: 1. Acute respiratory failure. 2. Viral pneumonia and COVID-19 infection. 3. Anemia secondary to chronic blood loss. 4. Corneal abrasion. 5. Splenomegaly. 6. Intestinal illness. PLAN: 1. Repeat chest x-ray now. 2. Continue to adjust ventilator settings and repeat ABG. 3. Continue Versed and fentanyl along with propofol. 4. Restart Lovenox. 5. Monitor potassium. 6. Continue enteral feedings. Greater than 35 minutes in direct critical care time. Maximilian Lowry MD [facility]/MODL /[id number]
[2019-10-27] MEDS: ENOXAPARIN SOD INJ 40 MG/0.4 ML SYR SC SCH ×2 (12:41→21:00)
--- NOTE | 2019-10-27 15:58 | Progress Note ---
DATE: SUBJECTIVE: Mr. Jesse Miles remains in intensive care unit. The patient was here for 54 days. He underwent tracheostomy today. PHYSICAL EXAMINATION: GENERAL: Intubated and sedated. HEENT: Normocephalic. NECK: Supple. CHEST: Crackles bilateral. HEART: S1 and S2. ABDOMEN: Soft. Bowel sounds present. EXTREMITIES: No edema. IMPRESSION: 1. Respiratory failure. 2. COVID-19. 3. Anemia. 4. Splenomegaly. Continue with supportive care as ordered. The patient is currently on cefepime, which we started seven days ago. I am going to continue for 14 days for pneumonia with Pseudomonas. Continue with PT/OT. Continue with supportive care. We will follow. MD MAYURI Taylor/MODL /[id number]
[2019-10-27 16:10] LABS: ABG HCO3 36 mmol/L (22-26); ABG PCO2 63 mmHg (35-45); ABG PH 7.37 (7.35-7.45); ABG PO2 115 mmHg (80-105); ABG TCO2 38
[2019-10-27] MEDS ORDERED: MIDAZOLAM HCL 5 MG/ML VIAL ONE (17:23)
[2019-10-27] MEDS ORDERED: MORPHINE SULFATE INJ 10 MG/ML ONE (17:23)
[2019-10-27] MEDS ORDERED: ROCURONIUM BROMIDE 10 MG/ML 5ML VIAL IV ONE (17:52)
[2019-10-27] MEDS ORDERED: SEVOFLURANE INHAL SOLN 250 ML PEN BTL ONE (17:52)
[2019-10-27] MEDS ORDERED: PROPOFOL IV EMULSION 10 MG/ML 20 ML VIAL ONE (17:52)
--- NOTE | 2019-10-27 19:09 | Operative Report ---
DATE OF PROCEDURE: 10/27/2019 SURGEON: James Mott MD PREOPERATIVE DIAGNOSIS: COVID-19 pneumonia. POSTOPERATIVE DIAGNOSIS: COVID-19 pneumonia. OPERATIVE PROCEDURE: Tracheostomy. ANESTHESIA: General, Dr. Tucker. 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 Family consent for placement of tracheostomy tube. Attendant risks discussed. DESCRIPTION OF PROCEDURE: The patient was brought to the OR from ICU. He was then placed in supine position in the OR bed and neck was extended with a shoulder lift. Neck was prepped with alcohol and draped in sterile fashion. A transverse collar incision was made extending through skin and subcutaneous tissue. Strap muscles were in the midline with cautery. The underlying isthmus of the thyroid was divided with the ligature instrument. The anterior aspect of the trachea was exposed below the 3rd tracheal ring between the 3rd and 4th. A transverse tracheotomy is carried out with cautery and the lateral aspect of the 4th ring also divided with scissor bilaterally. Hemostasis achieved with cauterization. An 8-Turkish proximal extra long tracheostomy tube was inserted into the trachea without difficulty and the balloon inflated. The tracheostomy tube was connected to ventilation registering appropriate tidal volume. At this point, dressing applied. Tracheal ties to anchor the tracheostomy tube was placed. The patient was then transported back to the ICU in critical condition. BLOOD LOSS: 2 mL. James Mott MD [facility]/MODL /[id number]
--- NOTE | 2019-10-27 22:54 | Progress Note ---
DATE: 10/27/2019 CONSULTANTS: 1. Dr. Lowry, household cook. 2. Dr. Maguire, Infectious Disease. 3. Dr. Casas, Cardiology. 4. Dr. Rodríguez, Nephrology. SUBJECTIVE: The patient is status post tracheostomy tube this morning. He remains on the vent and supine position. OBJECTIVE: VITAL SIGNS: Temperature 97.8, pulse is 120, respirations 31, blood pressure 115/64, and pulse ox is 97% on the vent. GENERAL: Sedated. LUNGS: Decreased breath sounds. Tracheostomy in place. CARDIOVASCULAR: Tachycardia, S1, S2. ABDOMEN: Soft. MUSCULOSKELETAL: Generalized edema. NEUROLOGIC: Sedated. LABORATORY DATA: WBC 12.04, hemoglobin 7.5, hematocrit 24.9, and platelet 301. Sodium 139, potassium 3.5, CO2 of 31. BUN 23, creatinine 0.72. Estimated GFR greater than 60. AST 16, ALT 19. IMPRESSION: 1. Acute respiratory failure due to COVID-19 pneumonia, status post tracheostomy today, vent management per household cook. Continue IV antibiotics per ID. 2. Leukocytosis. WBC improving 12.25 today. Continue cefepime per ID. 3. Chronic anemia. Stable, we will continue to monitor. 4. Hypokalemia. Replace. 5. Thrombocytopenia. Resolved. 6. Anasarca. Diuretics per Renal. 7. Tachycardia. Heart rate in the 120s. Continue beta-blockers per Cardiology. 8. Deep vein thrombosis prophylaxis. Lovenox subcu b.i.d. PLAN: To continue antibiotics per ID, status post trach, vent per household cook. Dictated by SNEHAL Laguerre Taylor Aparicio MD [facility]/MODL /[id number]
[2019-10-28] VITALS (31 sets, daily range): BP systolic 100–145; BP diastolic 54–79
[2019-10-28] MEDS: CEFEPIME 1GM/NS 0.9% 50 ML 50 ML IV SCH (00:01)
[2019-10-28] MEDS: SUCRALFATE 1 GM/10 ML SUSP NG SCH ×4 (00:20→17:04)
[2019-10-28] MEDS: PROPOFOL IV EMULSION 10MG/ML 100 ML IV PRN ×3 (00:56→22:03)
--- NOTE | 2019-10-28 03:10 | Progress Note ---
DATE: 10/27/2019 RENAL PROGRESS NOTE: SUBJECTIVE: Followed for hypokalemia and fluid overload. The patient also had COVID-19 pneumonia. The patient appears to be stable from his COVID-19 pneumonia. The patient is on 50% FiO2, 100% O2 saturations. He has been stable. He is periodically prone versus supine positioning. Potassium appears to be stabilized 3.5. The patient is also responding to Lasix drip. OBJECTIVE: VITAL SIGNS: Have been noted and stable, blood pressure 127/72, pulse 114. The patient is afebrile. LUNGS: Rhonchi bilaterally over the lung quevedo with minimal crackles. CARDIOVASCULAR: S1, S2. No rub. Tachycardic. ABDOMEN: Soft. Positive bowel sounds. EXTREMITIES: No edema. No clubbing. No cyanosis. LABORATORY DATA: As follows. Potassium is 3.5, BUN 23, creatinine is 0.7, calcium 8.7. IMPRESSION AND PLAN: 1. Hypokalemia has resolved. We will continue potassium via the G-tube 40 mEq four times a day for now and monitor potassium level closely. 2. Hypertension. Blood pressure is stable, off any pressors. 3. COVID-19 pneumonia. Plan would be per Critical Care. 4. Fluid overload. Continue with Lasix drip for now. If needed and does developed a metabolic alkalosis, can get p.r.n. doses of IV Diamox. Alex Roger MD [facility]/MODL /[id number]
--- NOTE | 2019-10-28 03:10 | Progress Note ---
DATE: 10/27/2019 CARDIOLOGY PROGRESS NOTE: SUBJECTIVE: Intubated, sedated, in prone position. OBJECTIVE: VITAL SIGNS: Temperature 99.2, heart rate 114, sinus tachycardia telemetry, blood pressure 127/72, O2 saturation 100%. GENERAL: Intubated and sedated. NECK: Supple. CHEST: Rales, decreased breath sounds. CARDIOVASCULAR: Regular rate and rhythm. Normal S1, S2. ABDOMEN: Soft. Bowel sounds positive. EXTREMITIES: Trace edema. CARDIOVASCULAR MEDICATIONS: Reviewed. 1. Metoprolol. 2. Acetazolamide. 3. Furosemide drip. 4. Potassium repletion. STUDIES: Reviewed. Sodium 139, potassium 3.5, creatinine 0.7, and glucose 98. White blood cells 12, hemoglobin 7.5, and platelets 301. AST 16, ALT 19. ASSESSMENT AND PLAN: A 44-year-old man presents with COVID-19 infection, community-acquired pneumonia, acute respiratory failure, hypertension, acute diastolic heart failure, anemia. RECOMMEND: Continue current cardiovascular medications. Continue vent weaning, awaiting possible . MD OPLA Del Valle/ANGELA /[id number]
[2019-10-28] MEDS: FUROSEMIDE INJ 100 MG in SODIUM CHLORIDE 0.9% 100 ML 90 ML IV SCH ×2 (05:00→11:28)
[2019-10-28] MEDS: FENTANYL 2000MCG/NS 250 250 ML IV PRN ×3 (05:15→20:54)
[2019-10-28] MEDS: MIDAZOLAM HCL 5MG/ML 10ML VIAL 100 ML IV PRN ×4 (05:15→20:17)
[2019-10-28] MEDS: ACETAMINOPHEN 325 MG TAB NG PRN ×3 (05:30→20:54)
[2019-10-28 05:57] LABS: BASOPHILS % 0.3 % (0.0-1.0); EOSINOPHILS # (AUTO) 1.2 (0.0-0.4); EOSINOPHILS % 8.3 % (0.0-6.0); HEMATOCRIT 26.3 % (38.2-49.6); HEMOGLOBIN 8.1 g/dL (14.0-18.0); LYMPHOCYTES # (AUTO) 0.9 (1.0-3.2); LYMPHOCYTES % 6.1 % (18.0-39.1); MEAN CORPUSCULAR HEMOGLOBIN 27.8 pg (28-32); MEAN CORPUSCULAR HGB CONC 30.8 g/dL (31-35); MEAN CORPUSCULAR VOLUME 90.4 fL (81-99); MONOCYTES # (AUTO) 1.3 (0.2-0.8); NEUTROPHILS # (AUTO) 10.7 (2.1-6.9); NEUTROPHILS % 74.6 % (38.7-80.0); PLATELET COUNT 305 x10e3/uL (140-360); RED BLOOD COUNT 2.91 x10e6/uL (4.3-5.7); RED CELL DISTRIBUTION WIDTH 14.9 % (11.7-14.4)
[2019-10-28 06:34] LABS: ALANINE AMINOTRANSFERASE 22 IU/L (0-55); ALKALINE PHOSPHATASE 117 IU/L (40-150); ANION GAP 13.4 mmol/L (8-16); BLOOD UREA NITROGEN 25 mg/dL (7-26); BUN/CREATININE RATIO 33 (6-25); CALCIUM 8.6 mg/dL (8.4-10.2); CARBON DIOXIDE 34 mmol/L (22-29); CHLORIDE 95 mmol/L (98-107); CREATININE, SERUM 0.76 mg/dL (0.72-1.25); EST GLOMERULAR FILTRATION RATE > 60 ML/MIN (60-); GLUCOSE 111 mg/dL (74-118); MAGNESIUM 2.2 MG/DL (1.3-2.1); PHOSPHORUS 3.6 MG/DL (2.3-4.7); POTASSIUM 3.4 mmol/L (3.5-5.1); SODIUM 139 mmol/L (136-145)
[2019-10-28] MEDS ORDERED: POTASSIUM CHLORIDE 20MEQ/100ML 200 ML IV ONE (07:30)
[2019-10-28 07:34] LABS: ALBUMIN 3.6 g/dL (3.5-5.0); ALBUMIN/GLOBULIN RATIO 0.9 (0.8-2.0)
[2019-10-28] MEDS: ERYTHROMYCIN (OPTH) 3.5 GM OINT OP SCH ×4 (07:53→21:00)
[2019-10-28] MEDS: FAMOTIDINE 20 MG/2 ML VIAL IV SCH ×2 (07:53→21:00)
[2019-10-28] MEDS: POTASSIUM CHLORIDE 20MEQ/15ML UDC NG SCH ×4 (07:53→21:00)
[2019-10-28] MEDS: MULTIVITAMINS/MINERALS TAB PO SCH (07:54)
[2019-10-28] MEDS: METOPROLOL TARTRATE 25 MG TAB PO SCH ×2 (07:54→21:00)
[2019-10-28] MEDS: ASCORBIC ACID 500 MG TAB PO SCH ×2 (07:54→21:00)
[2019-10-28] MEDS: BALSAM PERU/CASTOR OIL 60 GM OINT...G. TP SCH ×2 (07:54→21:00)
[2019-10-28] MEDS: ZINC SULFATE 220 MG CAP PO SCH (07:54)
[2019-10-28] MEDS: CHOLECALCIFEROL 1,000 UNIT TAB PO SCH (07:54)
[2019-10-28] MEDS: ENOXAPARIN SOD INJ 40 MG/0.4 ML SYR SC SCH ×2 (07:54→21:00)
--- NOTE | 2019-10-28 09:41 | Progress Note ---
DATE: SUBJECTIVE: The patient went for tracheostomy yesterday. He is still in the prone position. He remains on Lasix at 10 mg an hour. He is on Versed at 9 mg an hour and fentanyl at 275 mcg/hour. He is also on propofol at 35 an hour. The patient had a fever last night to 101.3. He is afebrile this morning. PHYSICAL EXAMINATION: VITAL SIGNS: Blood pressure is 138/70 and pulse is 115 to 120. He is currently on a pressure control mode of ventilation set at a rate of 30 with a PEEP of 6 and a pressure above PEEP of 28. His FiO2 is set at 50%. Saturation is 96%. HEENT: Shows no facial swelling or erythema. There is a tracheostomy site in good position. There is no drainage. He has a PICC line in good position. There is an arterial line. CARDIAC: Reveals regular rate and rhythm with normal S1 and S2. LUNGS: Auscultation of lungs shows decreased breath sounds at the bases. There is no wheezing. ABDOMEN: Soft and nontender. There is no rebound or guarding. EXTREMITIES: Show 1 to 2+ leg edema. LABORATORY DATA: White blood cell count is 14.4, hemoglobin is 8.1, and platelet count is 305. The BUN to creatinine ratio is 25 to 0.76. Potassium is 3.4. Other electrolytes within normal limits. IMPRESSION: 1. Acute respiratory failure. 2. Viral pneumonia and coronavirus disease 2019 infection. 3. Splenomegaly. 4. Corneal abrasion. 5. New onset fever. 6. Anasarca. PLAN: 1. Repeat chest x-ray and ABG now. 2. Gradually decrease Versed and fentanyl over the next several days. 3. Begin to taper Lasix drip. 4. Trach care. 5. Continue enteral feedings. 6. Physical therapy. 7. Adjust ventilator settings as needed. 8. Repeat cultures of sputum, blood, and urine. 9. Continue current antibiotics. 10. Case discussed with Nursing, General Surgery, Internal Medicine, and mother. Greater than 35 minutes in direct critical care time. MD SAMINA Angel/ANGELA /[id number]
[2019-10-28 09:53] LABS: ABG HCO3 36 mmol/L (22-26); ABG PCO2 57 mmHg (35-45); ABG PH 7.42 (7.35-7.45); ABG PO2 79 mmHg (80-105); ABG TCO2 38
--- NOTE | 2019-10-28 10:33 | Diagnostic Imaging Report ---
TECHNIQUE: Frontal view of the chest. INDICATION: ^resp failure ^[id number] ^1014 COMPARISON: 10/24/2019 DISCUSSION: Limited evaluation due to portable technique. Lines and hardware: Tracheostomy tube is noted with tip projecting 3.3 cm above the fred. Right PICC is stable. Enteric tube is seen coursing inferiorly out of the field of view. Heart and mediastinum: Stable. Lungs and pleura: Interval improvement in bilateral perihilar predominant interstitial airspace opacities. Residual opacities are noted. Negative for large pneumothorax. Small effusions are noted bilaterally tracking laterally and along the apices. Soft tissues and bones: No acute abnormality. IMPRESSION: 1. Interval improvement in the interstitial and alveolar airspace opacities. Stable small effusions tracking laterally and within the apices. 2. Tracheostomy tube projects 3.3 cm above the fred. Signed by: Paulie Stoner MD on 10/28/2019 10:29 AM
[2019-10-28 11:04] LABS: CLARITY,URINE CLEAR (CLEAR); COLOR,URINE YELLOW (YELLOW); LEUKOCYTE ESTERASE ,URINE NEGATIVE (NEGATIVE); NITRITE,URINE NEGATIVE (NEGATIVE); PROTEIN,URINE DIPSTICK TRACE (NEGATIVE)
[2019-10-28 11:05] LABS: BACTERIA,URINE RARE /HPF; BILIRUBIN,URINE NEGATIVE (NEGATIVE); EPITHELIAL CELLS,URINE FEW /LPF; KETONES,URINE NEGATIVE (NEGATIVE); URINE UROBILINOGEN 0.2 mg/dL (0.2 - 1)
[2019-10-28] MEDS: TOBRAMYCIN 40 MG/ML 2ML VIAL NEB SCH ×2 (11:40→23:15)
--- NOTE | 2019-10-28 12:17 | Progress Note ---
DATE: 10/28/2019 Renal Progress Note SUBJECTIVE: Followed for hypokalemia, fluid overload, COVID-19 pneumonia and the patient remains on the vent, overall doing better from his COVID-19 pneumonia. FiO2 requirements have been decreasing, which is a positive sign. The patient remains nonoliguric. OBJECTIVE: VITAL SIGNS: Vital signs noted. Blood pressure is 128/67 and FiO2 50%. CARDIAC: Remains tachycardic at 124. LUNGS: Rhonchi bilaterally. CARDIOVASCULAR: S1, S2. Tachycardic. ABDOMEN: Soft. Positive bowel sounds. EXTREMITIES: 1+ edema. LABORATORY DATA: Potassium 3.4 today, the patient is on replacement. Bicarb is 34, chloride 95, BUN 25, creatinine 0.76. IMPRESSION AND PLAN: 1. Hypokalemia. Continue potassium chloride 40 mEq 4 times a day via G-tube. 2. Hypertension. Blood pressure is stable. 3. Metabolic alkalosis. Did give one dose of Diamox yesterday since the patient is developing worsening metabolic alkalosis. Also recommend to decrease Lasix drip rate to 5 mg/hour. 4. COVID-19 pneumonia. Plan would be as per primary MD recommendations. Alex Roger MD /MODL /[id number]
--- NOTE | 2019-10-28 13:25 | NUR ---
ASSESSMENT: Spiritual concern Pt's RN coordinated FaceTime visit between cell biology scientist and pt's family. Pt's mother appreciative of support. Intervention: Provided prayer and reminded pt's mother on how to reach cell biology scientist, if needed. Outcome: Pt's family expressed appreciation for call. Will continue to follow as able. WILMAN DO Respiratory Scientist Spiritual Care Department O: [phone]
--- NOTE | 2019-10-28 14:19 | NUR ---
Nutrition Intervention Note RD Recommendation(s) for Physician: - Resume TF order of Pivot 1.5 with goal rate of 40 ml/hr (to provide 1440 kcal and 90 gm protein). Give 2 packets/day Beneprotein (provides an additional 50 kcal and 12 gm protein). Propofol provides an additional 528 currently. -Please place substitute Pivot 1.5 for Vital HP order in order comment section as Pivot 1.5 not available in TF selection -Pt may be fed at goal rate when prone in reverse Trendelenburg position with HOB 10-25 degrees - Water flushes per MD. Plan of Care: RD following, TF rec's, monitor adequacy and tolerance Nutrition reason for involvement: follow up RD Assessment 10/27: Follow up. Pt s/p trach placement yesterday. Pt observed outside of room, supine and physically appears well nourished. Spoke with RN on unit, TF resumed, infusing at goal rate post trach placement, and pt tolerating well. Pt continues to require fluctuating Propofol dosage. Current TF remains appropriate to meet needs, Propofol providing additional kcal currently. Chart reviewed. Will continue to monitor. 10/23: Follow up. Chart reviewed. Pt remains intubated and sedated. Pt is receiving propofol at 11.3 mL/hr which provides an additional 298 kcal. Last recorded tube feed rate was 30 mL/hr this morning. Pt is receiving Vital High Protein per RN. Recommend modifying tube feeding to Pivot 1.5. RD to manage TF order per Dr. Lowry. Will continue to monitor. 10/20: Follow up. Pt remains intubated, sedated, and paralyzed. Propofol stopped yesterday. Pt continues to require intermittent proning. No GI distress, pt having BMs, and TF currently infusing at 30 ml/hr. Noted Phos elevated after KPhos replacement. Plan for trach placement. Chart reviewed. In light of Propofol d/c, updated TF rec's provided. RD to manage TF order per Dr. Lowry. Will continue to monitor. 10/16: Follow up. Chart reviewed. Pt remains intubated and sedated. Pt is in the prone position per chart. Pt remains on Vital AF 1.2 trickle feeding currently at 10 mL/hr Recommended considering TPN if tube feeding rate is unable to be increased. Pt is receiving propofol at 22.6 mL/hr per chart which provides 597 kcal. Will continue to monitor 10/12: Follow up. Pt remains intubated and sedated with Propofol and Versed. Pt paralyzed with Nimbex. Pt now on Levophed, currently at 10 mcg/min. Pt on trickle TF currently, pt with ileus per MD notes. Spoke with Dr. Lowry over the phone, RD recommended considering TPN as pt continues to not meet needs with TF and currently with an ileus. stated that he would prefer to utilize the gut for now and will re-evaluate. RD requested Phos and Mg be drawn in case TPN required tomorrow to evaluate for replacements and initiation. Noted afternoon Phos and Mg WNL. Chart reviewed, plan for trach placement. TPN and TF rec's provided. Will continue to monitor. 10/09: Follow up. Chart reviewed. MD note indicates pt is in the supine position. Per documentation, pt is receiving TF at 30mL/hr not meeting kcal or protein needs. Current recommendations remain appropriate recommend increasing rate to 60 mL/hr. Will continue to monitor. 10/05: Follow up. Chart reviewed. Pt remains intubated and was in the supine position overnight. Pt is no receiving propofol at this time. Pts tube feed is at 20 mL/hr per chart not meeting kcal or protein needs. Tube feed recommendations provided. Will continue to monitor. 10/01: Follow up. Pt remains intubated, sedated on Propofol, and paralyzed. Pt requiring to be proned. TF rate decreased to 20 ml/hr currently- not meeting kcal or protein needs. TF rec's provided. Chart reviewed. Will continue to monitor. 09/29: Follow up. Pt remains intubated, sedated on high dose Propofol, and paralyzed. Pt requiring to be in intermittent prone positioning. TF infusing at 35 ml/hr, not meeting protein needs. TF rec's provided. Chart reviewed. Will continue to monitor. 09/25: Follow up. Chart reviewed. Pt remains intubated and sedated. Pt is receiving propofol at 7.8 mL/hr which provides 205 lipid kcal. TF is infusing at 20 mL/hr. Recommend modifying tube feed formula to Vital High Protein at this time. Will continue to monitor. 09/22: Follow up. Pt remains intubated, sedated, and paralyzed. Pt requiring proning. TF infusing at 10 ml/hr and TPN weaned to 20 ml/hr. Chart reviewed. TF and TPN rec's provided pending ability to advance TF. Will continue to monitor. 09/18: Follow up. Chart reviewed. Pt remains intubated and sedated. Pt was started on tube feeding. Last recorded rate was 20 mL/hr this afternoon. Pt continues to receive TPN @ 42 mL/hr. Propofol rate is at 13.4 mL/hr (provides 354 kcal). Recommendations provided. Will continue to monitor 09/15: Follow up. Pt remains intubated, sedated on Propofol at 19.6 ml/hr, and paralyzed. Pt continues on TPN at 42 ml/hr, not meeting needs. Pt continues with persistent ileus and is receiving enemas and suppositories. Pt requiring daily proning 2/2 respiratory status. TF order remains, recommend NPO for now. TPN goal rec's provided, continues at 42 ml/hr. Chart reviewed. Will continue to monitor. 09/11: Follow up. Chart reviewed. Pt remains intubated and sedated. Pt is receiving 30 mL/hr of propofol per documentation which provides 792 lipid kcal. Tube feeding has been held due to abdominal distention and pt was started on TPN @ 42 mL/hr today. MD note indicates pt has an ileus. Recommendations provided. Will continue to monitor. 09/07: Follow up. Chart reviewed. Pt remains intubated and sedated. Pt is receiving 23.6 mL/hr of propofol per documentation which provides 623 lipid kcal. TF was at 20 mL/hr last night per chart. Per MD note, pts abdomen is distended and has not had a BM. Will continue to monitor. 09/04: Follow up. Pt remains intubated and sedated. Pt is receiving 9 mL/hr of propofol per documentation, which provides 238 lipid kcal. TF was at 20 mL/hr per chart yesterday. No additional administration rate is available. Will continue to monitor. 09/02: Follow up. Pt remains intubated, paralyzed, and sedated on Propofol and Versed. Pt requiring proning. TF rate at 10 ml/hr per TF documentation yesterday- inadequate EN currently, no additional EN administration available per chart. Recommend continuing EN while pt is proned by placing them in reverse Trendelenburg position. If unable to advance TF to goal rate, recommend considering PN. Chart reviewed. Will continue to monitor. 08/29: Initial encounter with patient. Pt is sedated and orally intubated. Pt was not able to provide a nutrition Hx at the time of visit. Unable to observe oral cavity or perform a nutrition focused physical exam. Jevity 1.2 infusing at 20ml hr with a goal of 50ml/hr. Propofol provides 1.1kcal/ml EN provides 576 kcals, 26.64g of protein, and 387.36ml of free H2O Principal Problems/Diagnoses: CoVID 19 pneumonia PMH: No significant medical Hx, overweight/obesity GI: round, firm abdomen, last recorded BM 10/27- liquid, black Skin: stage 2 right ear pressure ulcer, penis ischemic edema, bilateral knees- ischemic edema, scrotal abrasion Labs: 10/27: Na 139, K 3.4, BUN 25, Cr 0.76, Gluc 111, Phos 3.6, Mg 2.2 10/23: Na 138, K 3.5, BUN 20, Cr 0.76, Glu 114, Ca 8.6 10/20: Na 136, K 5, BUN 12, Cr 0.6, Gluc 108, Phos 5.9, Mg 2.4, POC Gluc 103-115 10/16: Na 143, K 3.4, BUN 10, Cr 0.51, Glu 101 10/12: Na 139, K 4.1, BUN 20, Cr 0.57, Cl 103, CO2 25, Gluc 135, Phos 3.3, Mg 1.8 10/09: Na 140, K 3.4, BUN 15, Cr 0.44, Glu 103 10/05: Na 139, K 3.3, BUN 15, Cr 0.42, Glu 113, Ca 8.2 10/01: Na 139, K 4, BUN 12, Cr 0.59, Gluc 141, POC Gluc 127-175 09/29: Na 138, K 2.9, BUN 5, Cr 0.39, Gluc 87, POC 107-116 Meds: MVI with minerals, zinc sulfate, vitamin D, vitamin C, pepcid IVF/Drips: Versed drip, Fentanyl drip, Furosemide drip, Propofol at 20 ml/hr this am at time of visit (528 lipid kcal) Ht: 67 in. Wt: 193 lbs (10/27)- continued wt fluctuations, 203.56 lbs (10/17) 156 lbs- questionable wt (10/16) 206 lbs (10/12) 212 lbs (10/09) 236 lbs (10/05) 251 lbs (09/28) 253.5 lbs (09/25) 254.31 lb, 200.44lbs (08/29) - admit wt BMI: 31.4kg/m2 (weight used- 200 lbs) IBW: 148 lbs Malnutrition Evaluation (10/28/2019) The patient does not meet criteria for a specified degree of malnutrition at this time. Will re-evaluate at follow-up as appropriate. Intake adequacy: TF meeting needs Wt loss: pt with wt fluctuations since admit related to fluid Fat loss: none, ample skinfold thickness of arm observed outside pt room Muscle loss: none, shoulder round, adventism muscle apparent as observed outside of pt room Edema: moderate, +2 edema Functional status: JACOB due to intubation Nutrition Prescription (Diet Order): Pivot 1.5 at 40 ml/hr with 2 packets of Beneprotein/day (providing 1490 kcal and 102 gm protein). Fluctuating Propofol providing additional kcal. Estimated Nutritional Needs: 9950-9348 calories/day (22-25 kcal/kg IBW) 101-135 g protein/day (1.5-2 g pro/kg IBW) Diet Adequacy: meeting calorie needs, meeting protein needs Diet Education Needs Assessment: Diet education not indicated. Nutrition Care Level: moderate- TF at goal rate Nutrition Diagnosis: Inadequate energy and protein intake related to intubation as evidenced by pt requiring alternative means of nutrition. Goal: Patient will meet 75-100% of estimated needs by follow up Progress: goal met Interventions: Composition, Rate, Route, Recommended modifications Monitoring/Evaluation: Total energy intake, Total protein intake, Formula/Solution, Prescription medication, Weight change Signed: Mary Rodney RD, LD, [facility]
--- NOTE | 2019-10-28 14:53 | Progress Note ---
DATE: SUBJECTIVE: Mr. Miles remains in intensive care unit. This patient, who has been here for 65 days, status post trach. He is alert, follows very simple command. The patient remains on Lasix and Versed. PHYSICAL EXAMINATION: GENERAL: His eyes are open, noncommunicative. HEENT: Not icteric. NECK: Supple. CHEST: Few rhonchi. HEART: S1 and S2. ABDOMEN: Soft. Bowel sounds present. EXTREMITIES: Trace edema. IMPRESSION: COVID-19, respiratory failure, and splenomegaly. Continue with antibiotic. Continue with local care. He is currently on tobramycin inhaler. His white count is 14.3 today and hemoglobin 8.6. Sodium 139 and potassium 3.4. The patient is still running fever. We will do a CT of abdomen and pelvis. We will get CT of chest and reassess. MD MAYURI Taylor/ANGELA /[id number]
--- NOTE | 2019-10-28 19:24 | Progress Note ---
DATE: 10/28/2019 CONSULTANTS: 1. Dr. Lowry, hand zipper trimmer. 2. Dr. Maguire, Infectious Disease. 3. Dr. Casas, Cardiology. 4. Dr. Rodríguez, Nephrology. SUBJECTIVE: The patient is status post tracheostomy, grimaces to pain stimulation, remains on the vent in supine position. OBJECTIVE: VITAL SIGNS: Temperature 98.5, pulse 124, respirations 32, and blood pressure 107/58, pulse ox is 95% on the vent. GENERAL: Sedated, grimaces to pain stimuli. LUNGS: Decreased breath sounds. HEENT: Tracheostomy in place. CARDIOVASCULAR: Tachycardic. S1, S2. ABDOMEN: Soft. MUSCULOSKELETAL: Edema in the lower extremities. NEUROLOGIC: Sedated. LABORATORY DATA: WBC 14.38, hemoglobin 8.1, hematocrit 26.3, and platelet 305. Sodium 139, potassium 3.4, BUN 25, creatinine 0.76, estimated GFR is greater than 60. AST 21, ALT 22. UA, trace protein, negative leukocyte esterase, 6-10 RBC's and wbc's. IMAGING DATA: Internal improvement in interstitial and alveolar airspace opacities. Stable small effusion tracking laterally and within the apices. The tracheostomy tube projects 3.3 cm above fred. IMPRESSION: 1. Acute respiratory failure due to coronavirus disease-19 pneumonia. Status post tracheostomy tube. Vent management per hand zipper trimmer. Antibiotics per ID. Leukocytosis. Stable. We will continue to monitor. 2. Chronic anemia. Stable. Hemoglobin is 8.1 today. 3. Hypokalemia. Replace and recheck. 4. Thrombocytopenia. Resolved. 5. Anasarca. Diuretics per Renal. 6. Tachycardia. Heart rate in the 130s. Continue beta blockers per Cardiology. 7. Deep venous thrombosis prophylaxis. Lovenox. PLAN: To continue current treatment, gradually decreasing Versed and fentanyl over the next several days, and vent management per hand zipper trimmer. Dictated by SNEHAL Laguerre Taylor Aparicio MD MY/MODL /[id number]
--- NOTE | 2019-10-28 22:04 | Progress Note ---
DATE: 10/28/2019 Cardiology Progress Note SUBJECTIVE: Remains on ventilator support, however, awake today, able to track with gaze, some response to conversations, however, seems still quite weak and obtunded. OBJECTIVE: VITAL SIGNS: Afebrile. Blood pressure 110/54, heart rate 127, sinus tachycardia, respiratory rate 29, O2 saturation 98%. BMI 30. GENERAL: Now chronically ill-appearing and weak, awake. NECK: With trach in place and connected to vent machine. CHEST: With decreased breath sounds and scattered rales. CARDIOVASCULAR: Regular rate and rhythm. Normal S1 and S2. Tachycardic. ABDOMEN: Soft. Bowel sounds positive. EXTREMITIES: Trace edema. CARDIOVASCULAR MEDICATIONS: Reviewed, include Lovenox, furosemide, potassium chloride, metoprolol tartrate. STUDIES: Reviewed. Sodium 139, potassium 3.4, chloride 95, bicarbonate 34, BUN 25, creatinine 0.7, glucose 111. White blood cells 14, hemoglobin is 8.1, and platelets 305. PT 16.5, PTT 37, INR 1.2. AST 21, ALT 22, alkaline phosphatase 117. ASSESSMENT AND PLAN: A 44-year-old man presents with coronavirus disease 2019 infection, acute respiratory failure, community-acquired pneumonia, hypertension, acute diastolic heart failure, and anemia. Recommend PT and OT evaluation. Continue current cardiovascular medications. Continue to wean vent support as tolerated. John Romero MD [facility]/MODL /[id number]
[2019-10-29] VITALS (25 sets, daily range): BP systolic 94–142; BP diastolic 50–75
[2019-10-29] MEDS: SUCRALFATE 1 GM/10 ML SUSP NG SCH ×4 (00:35→18:13)
[2019-10-29] MEDS: FUROSEMIDE INJ 100 MG in SODIUM CHLORIDE 0.9% 100 ML 90 ML IV SCH ×2 (01:32→14:45)
[2019-10-29] MEDS: PROPOFOL IV EMULSION 10MG/ML 100 ML IV PRN ×4 (01:32→22:46)
[2019-10-29] MEDS: MIDAZOLAM HCL 5MG/ML 10ML VIAL 100 ML IV PRN ×3 (01:33→14:45)
[2019-10-29] MEDS: ACETAMINOPHEN 325 MG TAB NG PRN ×2 (05:15→21:06)
[2019-10-29] MEDS: FENTANYL 2000MCG/NS 250 250 ML IV PRN ×2 (06:04→14:44)
[2019-10-29 06:17] LABS: BASOPHILS # (AUTO) 0.1 (0.0-0.1); BASOPHILS % 0.3 % (0.0-1.0); EOSINOPHILS # (AUTO) 1.2 (0.0-0.4); EOSINOPHILS % 7.5 % (0.0-6.0); HEMATOCRIT 27.3 % (38.2-49.6); HEMOGLOBIN 8.4 g/dL (14.0-18.0); LYMPHOCYTES # (AUTO) 0.8 (1.0-3.2); LYMPHOCYTES % 5.3 % (18.0-39.1); MEAN CORPUSCULAR HEMOGLOBIN 27.6 pg (28-32); MEAN CORPUSCULAR HGB CONC 30.8 g/dL (31-35); MEAN CORPUSCULAR VOLUME 89.8 fL (81-99); MONOCYTES # (AUTO) 1.4 (0.2-0.8); MONOCYTES % 8.5 % (4.4-11.3); NEUTROPHILS # (AUTO) 12.2 (2.1-6.9); NEUTROPHILS % 76.8 % (38.7-80.0); PLATELET COUNT 306 x10e3/uL (140-360); RED BLOOD COUNT 3.04 x10e6/uL (4.3-5.7); RED CELL DISTRIBUTION WIDTH 14.9 % (11.7-14.4)
[2019-10-29 06:38] LABS: ALANINE AMINOTRANSFERASE 21 IU/L (0-55); ALBUMIN 3.6 g/dL (3.5-5.0); ALBUMIN/GLOBULIN RATIO 0.8 (0.8-2.0); ALKALINE PHOSPHATASE 128 IU/L (40-150); ANION GAP 15.6 mmol/L (8-16); BLOOD UREA NITROGEN 26 mg/dL (7-26); BUN/CREATININE RATIO 33 (6-25); CALCIUM 8.9 mg/dL (8.4-10.2); CARBON DIOXIDE 33 mmol/L (22-29); CHLORIDE 94 mmol/L (98-107); CREATININE, SERUM 0.78 mg/dL (0.72-1.25); EST GLOMERULAR FILTRATION RATE > 60 ML/MIN (60-); GLUCOSE 114 mg/dL (74-118); MAGNESIUM 2.3 MG/DL (1.3-2.1); PHOSPHORUS 3.8 MG/DL (2.3-4.7); POTASSIUM 3.6 mmol/L (3.5-5.1); SODIUM 139 mmol/L (136-145)
[2019-10-29] MEDS: TOBRAMYCIN 40 MG/ML 2ML VIAL NEB SCH ×2 (07:00→19:00)
[2019-10-29] MEDS ORDERED: POTASSIUM PHOSPHATE 20 MM in SODIUM CHLORIDE 0.9% 250ML 250 ML IV SCH (07:30)
[2019-10-29] MEDS: BALSAM PERU/CASTOR OIL 60 GM OINT...G. TP SCH ×2 (08:15→20:55)
[2019-10-29] MEDS: ERYTHROMYCIN (OPTH) 3.5 GM OINT OP SCH ×4 (08:15→20:54)
[2019-10-29] MEDS: CHOLECALCIFEROL 1,000 UNIT TAB PO SCH (08:15)
[2019-10-29] MEDS: ENOXAPARIN SOD INJ 40 MG/0.4 ML SYR SC SCH ×2 (08:15→20:55)
[2019-10-29] MEDS: MULTIVITAMINS/MINERALS TAB PO SCH (08:15)
[2019-10-29] MEDS: METOPROLOL TARTRATE 25 MG TAB PO SCH ×2 (08:15→20:55)
[2019-10-29] MEDS: POTASSIUM CHLORIDE 20MEQ/15ML UDC NG SCH ×4 (08:15→20:54)
[2019-10-29] MEDS: ZINC SULFATE 220 MG CAP PO SCH (08:15)
[2019-10-29] MEDS: ASCORBIC ACID 500 MG TAB PO SCH ×2 (08:15→20:55)
[2019-10-29] MEDS: FAMOTIDINE 20 MG/2 ML VIAL IV SCH ×2 (08:15→20:54)
[2019-10-29 08:39] LABS: ABG HCO3 37 mmol/L (22-26); ABG PCO2 53 mmHg (35-45); ABG PH 7.45 (7.35-7.45); ABG PO2 118 mmHg (80-105); ABG TCO2 38
--- NOTE | 2019-10-29 10:30 | NUR ---
Solar Hot Water Installer provided prayer for pt. Pt's mother on FaceTime w/visit coordinated by pt's RN. Will continue to follow as able. WILMAN Wells Spiritual Care Department O: [phone]
--- NOTE | 2019-10-29 11:07 | Progress Note ---
DATE: SUBJECTIVE: The patient's fentanyl is decreased to 200 and his Versed is decreased to 6. The patient is still on mechanical ventilation. He is on pressure control at a rate of 28 with a peak inspiratory pressure of 24 and a PEEP of 6. His FiO2 is set at 40%. PHYSICAL EXAMINATION: VITAL SIGNS: The patient is afebrile. The blood pressure is 124/64. The saturation is 97%. HEENT: Shows no facial swelling or erythema. The patient has an oral tracheostomy tube that is in good position. There is no drainage. CARDIAC: Reveals regular rate and rhythm with normal S1 and S2. LUNGS: Auscultation of lungs reveals crackles at the bases. There is no wheezing. ABDOMEN: Soft and nontender. There is no rebound or guarding. EXTREMITIES: Shows no leg edema or calf tenderness. There is no cyanosis or clubbing. SKIN: Shows no rashes. NEUROLOGICAL: Shows no focal abnormalities. LABORATORY DATA: The white blood cell count is 15.9, hemoglobin is 8.4. The platelet count is 306. The BUN to creatinine ratio is normal. The other electrolytes are within normal limits. The albumin is 3.6. Procalcitonin 0.21. IMPRESSION: 1. Acute respiratory failure. 2. Viral pneumonia and COVID-19 infection. 3. Splenomegaly. 4. Corneal abrasion. 5. Anasarca. PLAN: 1. The patient will continue on pressure control. 2. Continue to wean Versed and fentanyl very gradually. 3. Decrease Lasix to 5 mg an hour. 4. Continue trach care. 5. Continue physical therapy. Maximilian Lowry MD [facility]/MODL /[id number]
--- NOTE | 2019-10-29 11:26 | Progress Note ---
DATE: 10/29/2019 Renal Progress Note SUBJECTIVE: The patient is followed for hypokalemia as well as fluid overload. The patient has COVID-19 pneumonia, remains intubated. The patient remains on the vent via trach. The patient is nonoliguric, having at least 3 L of urine output. I decreased the Lasix drip yesterday to 5 mg/hour, however, it was kept at 10 mg/hour. The patient's metabolic alkalosis is still persistent on the ABG. I suspect that he is getting some degree of volume contraction. His FiO2 is at 30%. Now, he is oxygenating well. OBJECTIVE: VITAL SIGNS: Have been noted and stable. The patient is not on any pressors. LUNGS: Minimal rales at the bases bilaterally. CARDIOVASCULAR: S1 and S2. No rub. ABDOMEN: Soft and nontender. EXTREMITIES: No edema. LABORATORY WORKUP: Has been reviewed. Potassium is 3.6 today. IMPRESSION AND PLAN: 1. Hypokalemia. Continue potassium via the G-tube 4 times a day. 2. Hypertension. Blood pressure is controlled. 3. Metabolic alkalosis. I suspect that secondary to volume contraction. Discussed the case with Dr. Lowry and the nurse. I will decrease the Lasix drip to 5 mg/hour to avoid further volume contraction and further worsening metabolic alkalosis. 4. COVID-19 pneumonia, improving clinically. Plan would be as per Pulmonary Critical Care recommendations. Alex Roger MD TH/MODL /[id number]
--- NOTE | 2019-10-29 11:37 | NUR ---
[facility] CALLED AND WANTS TO KNOW PLAN FOR PT, PROVIDED INFORMATION TO DONNA CM, - EXT [id number]
--- NOTE | 2019-10-29 14:36 | NUR ---
VITAL SIGNS: The patient is afebrile. The blood pressure is 124/64. The saturation is 97%. HEENT: Shows no facial swelling or erythema. The patient has an oral tracheostomy tube that is in good position. There is no drainage. CARDIAC: Reveals regular rate and rhythm with normal S1 and S2. LUNGS: Auscultation of lungs reveals crackles at the bases. There is no wheezing. ABDOMEN: Soft and nontender. There is no rebound or guarding. EXTREMITIES: Shows no leg edema or calf tenderness. There is no cyanosis or clubbing. SKIN: Shows no rashes. NEUROLOGICAL: Shows no focal abnormalities. LABORATORY DATA: The white blood cell count is 15.9, hemoglobin is 8.4. The platelet count is 306. The BUN to creatinine ratio is normal. The other electrolytes are within normal limits. The albumin is 3.6. Procalcitonin 0.21.
--- NOTE | 2019-10-29 16:03 | Progress Note ---
DATE: SUBJECTIVE: Mr. Miles remains in intensive care unit. Events noted. He is day #66. Discussed with Critical Care. I think we slowly weaning him down off sedative. He is still running fever and I am concerned if he have chemical withdrawal and that is how we are seen the fever from; however, the patient clinically vent harrison and vitals seems to be slowly improving. PHYSICAL EXAMINATION: HEENT: Currently, he is not icteric. NECK: Supple. CHEST: Crackles bilateral. HEART: S1-S2. ABDOMEN: Soft. Bowel sounds present. EXTREMITIES: No edema. LABORATORY DATA: Reviewed, his white count 15.93, hemoglobin 8.4. INR of 1.2. IMPRESSION: Respiratory failure, leukocytosis, pneumonia with Pseudomonas. He is on [place] inhaler. Clinically, he seems to be getting better slowly. Continue with supportive care. We will follow. MD MAYURI Taylor/ANGELA /[id number]
--- NOTE | 2019-10-29 20:24 | Progress Note ---
DATE: 10/29/2019 CONSULTANTS: 1. Dr. Lowry, bottom ironer. 2. Dr. Maguire, Infectious Disease. 3. Dr. Casas, Cardiology. 4. Dr. Rodríguez, Nephrology. SUBJECTIVE: The patient is more awake today, tracheostomy in place, vented, no events overnight. OBJECTIVE: VITAL SIGNS: Temperature 99.4, pulse is 130, respirations 32, blood pressure 126/58, 96% on the vent. GENERAL: Awake. HEENT: Tracheostomy in place. LUNGS: With decreased breath sounds. CARDIOVASCULAR: Tachycardic, heart rate 130. S1 and S2 heard. ABDOMEN: Soft. MUSCULOSKELETAL: No edema. NEUROLOGIC: Alert. LABORATORY DATA: WBC is 15.94, hemoglobin 8.4, hematocrit 27.3, and platelets 306. Sodium 139, potassium 3.6, CO2 of 33, creatinine 0.78, estimated GFR is greater than 60. AST 17, ALT 21. IMPRESSION: 1. Acute respiratory failure due to coronavirus disease 2019 pneumonia. Status post tracheostomy. Vent management per bottom ironer. Antibiotics per ID. 2. Leukocytosis. WBC is 15. Cultures noted. We will continue to monitor. 3. Chronic anemia. Hemoglobin is stable. We will continue to monitor closely. 4. Hypokalemia. Replace and recheck. 5. Thrombocytopenia, resolved. 6. Anasarca. Diuretics per Renal. 7. Tachycardia. Heart rate remains in the 130s. Continue beta-freddie per Cardiology. 8. Deep venous thrombosis prophylaxis. Continue with Lovenox. PLAN: Continue current treatment, wean sedation gradually. Dictated by SNEHAL Laguerre Taylor Aparicio MD MY/MODL /[id number]
--- NOTE | 2019-10-29 21:35 | NUR ---
New bag of precedex hung at this time.
[2019-10-29] MEDS: DEXMEDETOMIDINE 200MCG/NS 50ML 50 ML IV PRN ×2 (23:43→23:44)
[2019-10-30] VITALS (24 sets, daily range): BP systolic 86–165; BP diastolic 40–82
[2019-10-30] MEDS: SUCRALFATE 1 GM/10 ML SUSP NG SCH ×4 (00:51→18:16)
[2019-10-30] MEDS: FENTANYL 2000MCG/NS 250 250 ML IV PRN ×3 (02:07→23:30)
--- NOTE | 2019-10-30 02:36 | Progress Note ---
DATE: 10/29/2019 Cardiology Progress Note SUBJECTIVE: The patient remains on ventilatory support. He has been gradually weaned off sedatives. He has been on Versed, fentanyl, and propofol. The propofol dose has not been decreased. He still is very unresponsive. OBJECTIVE: VITAL SIGNS: His T-max is 100.3 degrees Fahrenheit. His blood pressure is 140/70, heart rate is 130 and regular, and oxygen saturation is 93%. His FiO2 is 50%. GENERAL: He is diffusely edematous. NECK: Shows tracheostomy in good place. He has been mechanically ventilated via the trach. CHEST: Shows decreased breath sounds. CARDIOVASCULAR: Regular rate and rhythm, tachycardic. ABDOMEN: Soft with bowel sounds present. CARDIOVASCULAR MEDICATIONS: Reviewed. His Lasix drip has been decreased to 5 mg/hour. LABORATORY DATA: Shows a white count of 15.9, the hemoglobin is 8.4, hematocrit is 27, his platelet count is 306,000. His sodium is 139, potassium 3.6, chloride 94, bicarb 33, BUN is 26 and creatinine 0.78 and glucose is 114. His liver tests are within reference range. ASSESSMENT AND PLAN: 1. Coronavirus infection with COVID-19 and associated pneumonia. 2. Acute respiratory failure with prolonged ventilatory support. 3. Hypertension. 4. Acute diastolic heart failure. 5. Fluid overload. Cardiovascularly, the patient remained stable. Recommend continuing the cardiovascular medications. Lalitha Singh MD EC/MODL /[id number]
[2019-10-30] MEDS: METOCLOPRAMIDE HCL 10 MG/2ML VIAL IV SCH ×4 (02:45→18:16)
--- NOTE | 2019-10-30 02:45 | NUR ---
Dr. Tanna Astudillo present and assessing the pt. Notified him of pts TF residuals. New order received to give Reglan 10mg IV q6hrs give first dose now.
[2019-10-30] MEDS: DEXMEDETOMIDINE 200MCG/NS 50ML 50 ML IV PRN ×6 (03:07→22:52)
[2019-10-30] MEDS: MIDAZOLAM HCL 5MG/ML 10ML VIAL 100 ML IV PRN ×3 (03:08→23:30)
[2019-10-30 04:39] LABS: BASOPHILS # (AUTO) 0.1 (0.0-0.1); BASOPHILS % 0.4 % (0.0-1.0); EOSINOPHILS # (AUTO) 0.6 (0.0-0.4); EOSINOPHILS % 3.1 % (0.0-6.0); HEMOGLOBIN 7.6 g/dL (14.0-18.0); LYMPHOCYTES # (AUTO) 0.8 (1.0-3.2); LYMPHOCYTES % 4.3 % (18.0-39.1); MEAN CORPUSCULAR HEMOGLOBIN 27.9 pg (28-32); MEAN CORPUSCULAR HGB CONC 30.4 g/dL (31-35); MEAN CORPUSCULAR VOLUME 91.9 fL (81-99); MONOCYTES # (AUTO) 1.3 (0.2-0.8); MONOCYTES % 7.4 % (4.4-11.3); NEUTROPHILS % 83.9 % (38.7-80.0); PLATELET COUNT 250 x10e3/uL (140-360); RED BLOOD COUNT 2.72 x10e6/uL (4.3-5.7); RED CELL DISTRIBUTION WIDTH 14.8 % (11.7-14.4)
[2019-10-30 04:57] LABS: ALANINE AMINOTRANSFERASE 22 IU/L (0-55); ALBUMIN 3.6 g/dL (3.5-5.0); ALBUMIN/GLOBULIN RATIO 0.8 (0.8-2.0); ALKALINE PHOSPHATASE 123 IU/L (40-150); ANION GAP 15.3 mmol/L (8-16); BLOOD UREA NITROGEN 29 mg/dL (7-26); BUN/CREATININE RATIO 35 (6-25); CARBON DIOXIDE 31 mmol/L (22-29); CHLORIDE 98 mmol/L (98-107); CREATININE, SERUM 0.83 mg/dL (0.72-1.25); EST GLOMERULAR FILTRATION RATE > 60 ML/MIN (60-); GLUCOSE 121 mg/dL (74-118); MAGNESIUM 2.6 MG/DL (1.3-2.1); PHOSPHORUS 3.4 MG/DL (2.3-4.7); POTASSIUM 4.3 mmol/L (3.5-5.1); SODIUM 140 mmol/L (136-145)
[2019-10-30] MEDS: TOBRAMYCIN 40 MG/ML 2ML VIAL NEB SCH ×2 (07:00→19:15)
[2019-10-30] MEDS: ACETAMINOPHEN 325 MG TAB NG PRN ×2 (08:00→17:00)
--- NOTE | 2019-10-30 08:40 | Diagnostic Imaging Report ---
Chest, 1 view, 10/30/2019. History: Pelvic pneumonia. Comparison: 10/28/2019. Findings: The cardiac silhouette is stable. Diffuse bilateral alveolar opacities are unchanged, with left apical pleural thickening. Tracheostomy tube, right upper extremity PICC, and NG tube are unchanged in position. There are no acute osseous or soft tissue abnormalities. Impression: No significant change in bilateral pneumonia. Signed by: Jayson Mcclure on 10/30/2019 8:37 AM
--- NOTE | 2019-10-30 08:41 | NUR ---
HEMATOLOGY/ONCOLOGY PROGRESS NOTE: HPI: Patient with trach in place, sedated. Nurse at bedside. ROS: 14 point ROS unable to obtain secondary to sedation and contact precautions. PHYSICAL EXAM: Vitals: Reviewed as per EMR. Temp: 97 degF HR: 97 RR: 27 BP: 112/52 PE not performed due to COVID-19 contact precautions. LABORATORY/RADIOLOGY DATA: Reviewed per EMR. ASSESSMENT AND PLAN: Mr. Miles is a 44-year-old male with past medical history of hypertension who was admitted on 08/24/2019 due to cough and fever. Patient was found to be positive for COVID-19. Intubated due to worsening respiratory status. Patient has been treated with full-dose Lovenox since 09/08/19. Has required PRBC previously during admission. Patient now with dropping platelet count and recurrent anemia requiring PRBC transfusion. Hematology/Oncology has been consulted to assist with the management. 1. Thrombocytopenia: Likely secondary to consumption for infection. DIC panel showed no coagulopathy, elevated fibrinogen, does not appear DIC. Acute hepatitis panel negative. Abdominal US without evidence of liver cirrhosis or splenomegaly. HIT panel negative on 09/15/2019. Repeat DIC panel does not appear DIC with elevated fibrinogen level. THROMBOCYTOPENIA RESOLVED, now with mild thrombocytosis which may be reactive. Continue on Lovenox 40mg sq BID. Can move to full dose 1mg/kg BID if clear by other teams. Monitor closely. 2. Anemia: Anemia panel appears mixed picture AOCD + RODRIGUEZ with noted low B12 level. Macrocytosis probably combination of B12 deficiency and possibly also related to bone marrow suppression from viral infection. Ferritin mildly elevated, likely as acute phase reactant. Repeat ferritin significantly more la vated hold IV iron. Reticulocyte count and LDH mildly elevated, haptoglobin elevated, does not appear hemolysis. S/p multiple PRBC transfusions, last on 10/25/2019. Hemoglobin slightly trending down. repeat ferritin level 10/25 still markedly elevated. Monitor closely and continue to transfuse for hgb < 7. 3. COVID-19 PNA: In the ICU, S/P tracheostomy placement, weaning off vent as tolerated, sedated. Undergoing intermittent proning. Pneumocystis carinii smear negative. Sputum culture from 10/11 with pseudomonas, fungal cultures pending. On IV antibiotics, leukocytosis stable. Fever intermittent, blood cultu re 10/28/19 with gram negative bacillus an staph aureus. Pulmonary and infectious disease on board. 4. Melena/ileus/abd distention: On Pepcid IV q12h. Improved. Abdominal US with some billiary sludge and splenomegaly. On TFs with nutrition/GI on board. 5. Fluid overload/oligoanuria: On Lasix, monitor UOP per Nephrology on board. 6. DVT proph: Continue on Lovenox 40mg sq BID. 7. GOC: Patient is s/p trach placement. Disposition per primary team. Above plan discussed with Dr. Lona Martinez. Thank you for the consult. I will be available. Please call with questions.
[2019-10-30] MEDS: FAMOTIDINE 20 MG/2 ML VIAL IV SCH ×2 (08:46→20:14)
[2019-10-30] MEDS: CHOLECALCIFEROL 1,000 UNIT TAB PO SCH (08:47)
[2019-10-30] MEDS: ZINC SULFATE 220 MG CAP PO SCH (08:47)
[2019-10-30] MEDS: BALSAM PERU/CASTOR OIL 60 GM OINT...G. TP SCH ×2 (08:47→20:15)
[2019-10-30] MEDS: ERYTHROMYCIN (OPTH) 3.5 GM OINT OP SCH (08:47)
[2019-10-30] MEDS: METOPROLOL TARTRATE 25 MG TAB PO SCH ×2 (08:47→20:15)
[2019-10-30] MEDS: ASCORBIC ACID 500 MG TAB PO SCH ×2 (08:47→20:15)
[2019-10-30] MEDS: ENOXAPARIN SOD INJ 40 MG/0.4 ML SYR SC SCH ×2 (08:47→20:15)
[2019-10-30] MEDS: MULTIVITAMINS/MINERALS TAB PO SCH (08:47)
[2019-10-30] MEDS: FUROSEMIDE INJ 100 MG in SODIUM CHLORIDE 0.9% 100 ML 90 ML IV SCH ×2 (09:41→13:59)
[2019-10-30 10:50] LABS: ABG PCO2 47 mmHg (35-45); ABG PH 7.49 (7.35-7.45); ABG PO2 77 mmHg (80-105)
[2019-10-30 10:51] LABS: ABG HCO3 35 mmol/L (22-26); ABG TCO2 37
[2019-10-30] MEDS: POTASSIUM CHLORIDE 20MEQ/15ML UDC NG SCH (14:25)
--- NOTE | 2019-10-30 14:26 | NUR ---
infectious disease progress note Patient seen examined chart reviewed Remains in intensive care unit Being slowly weaned The patient remains on ventilatory support. He has been gradually weaned off sedatives. He has been on Versed, fentanyl, and propofol. The propofol dose has not been decreased. He still is very unresponsive. OBJECTIVE: VITAL SIGNS: His T-max is 100.3 degrees Fahrenheit. His blood pressure is 140/70, heart rate is 130 and regular, and oxygen saturation is 93%. His FiO2 is 50%. GENERAL: He is diffusely edematous. NECK: Shows tracheostomy in good place. He has been mechanically ventilated via the trach. CHEST: Shows decreased breath sounds. CARDIOVASCULAR: Regular rate and rhythm, tachycardic. ABDOMEN: Soft with bowel sounds present. CARDIOVASCULAR MEDICATIONS: Reviewed. His Lasix drip has been decreased to 5 mg/hour. LABORATORY DATA: Shows a white count of 15.9, the hemoglobin is 8.4, hematocrit is 27, his platelet count is 306,000. His sodium is 139, potassium 3.6, chloride 94, bicarb 33, BUN is 26 and creatinine 0.78 and glucose is 114. His liver tests are within reference range. fever leukocytosis on inhaled tobramycin blood cultures were negative Recheck CBC to check and panel
--- NOTE | 2019-10-30 14:49 | Progress Note ---
DATE: SUBJECTIVE: The patient is currently on a mechanical ventilator. His versed is decreased to 5 and his fentanyl is down to 200. He went for physical therapy today. He is awake and following commands. PHYSICAL EXAMINATION: VITAL SIGNS: The blood pressure is 165/75 and the heart rate is 111. HEENT: No facial swelling or erythema. There is an oral tracheostomy. The site is clean. There is no drainage. CARDIAC: Regular rate and rhythm. Normal S1, S2. LUNGS: Auscultation of lungs reveals rhonchorous breath sounds bilaterally. There is no wheezing. ABDOMEN: Soft, nontender. There is no rebound or guarding. EXTREMITIES: No leg edema or calf tenderness. There is no cyanosis or clubbing. SKIN: No rashes. LABORATORY DATA: BUN to creatinine ratio is 29 and 0.83 and other electrolytes are within normal limits. The white blood cell count is 17.9 and hemoglobin is 7.6. The platelet count is 250. X-ray shows bilateral infiltrates. IMPRESSION: 1. Acute respiratory failure. 2. Viral pneumonia and coronavirus disease-19 infection. 3. Splenomegaly. 4. Anasarca. 5. Corneal abrasion. PLAN: 1. Continue to wean Versed and fentanyl slowly because of physical tolerance. 2. Use Precedex as needed to prevent tachycardia and diaphoresis and other symptoms associated with benzodiazepine and narcotic withdrawal. 3. Decrease and taper Lasix drip. 4. Continue trach care. 5. Continue enteral feedings. 6. Continue physical therapy. Maximilian Lowry MD [facility]/MODL /[id number]
[2019-10-30] MEDS ORDERED: POTASSIUM CHLORIDE 20MEQ/15ML UDC NG SCH (15:00)
--- NOTE | 2019-10-30 18:10 | Progress Note ---
DATE: 10/30/2019 Renal Progress Note SUBJECTIVE: Followed for hypokalemia. The patient's potassium is better today at 4.3. The patient is nonoliguric. The patient remains on the vent. Has COVID-19 pneumonia, however, clinically improving. OBJECTIVE: VITAL SIGNS: Have been noted and are stable. However, blood pressure is slightly on the lower side today. Last blood pressure was 92/44. The patient remains on the vent, 97% O2 sats on FiO2 of 40%. LUNGS: Rales bilaterally. CARDIOVASCULAR: S1, S2. No rub. ABDOMEN: Soft. Positive bowel sounds. EXTREMITIES: No edema. LABORATORY DATA: Potassium 4.3, BUN is 29, creatinine is 0.8. IMPRESSION AND PLAN: 1. Hypokalemia. We will decrease potassium chloride 2 to 3 times a day 40 mEq and monitor closely. 2. Hypertension/hypotension. Recommend to hold any blood pressure lowering medications. I am going to decrease Lasix drip rate down to 5 mg/hour. 3. Metabolic alkalosis. We will decrease Lasix drip rate and keep it at 5 mg/hour for now. 4. COVID-90 pneumonia. Plan would be per Pulmonary Critical Care. MD ERIKA Bocanegra/MODL /[id number]
--- NOTE | 2019-10-30 18:25 | NUR ---
PICC line removed per MD Kirby Lowry verbal order. Pt tolerated well.
--- NOTE | 2019-10-30 19:21 | NUR ---
Pt bed turned to angle room window as family is outside praying for the pt.
[2019-10-30] MEDS: PROPOFOL IV EMULSION 10MG/ML 100 ML IV PRN (19:59)
--- NOTE | 2019-10-30 22:10 | NUR ---
Assumed care. Assessment unchanged. On rotating bed. Fentanyl, versed, precedex. propofol & Lasix drips. Vent to trach. Vent settings: FIO2 40%, PEEP 5, Rate 26 and PC 22 above PEEP.
--- NOTE | 2019-10-30 22:16 | Progress Note ---
DATE: 10/30/2019 Cardiology Progress Note SUBJECTIVE: The patient remains on the vent. He is still receiving sedation. He is overall unresponsive. OBJECTIVE: VITAL SIGNS: His blood pressure is 160/82 mmHg, heart rate is 127 beats per minute, he is afebrile, and his FiO2 is 40%. GENERAL: He is diffusely edematous. NECK: Tracheostomy in good place. CHEST: Decreased breath sounds in both lung quevedo. CARDIOVASCULAR: Regular rate and rhythm. Tachycardiac. ABDOMEN: Soft. CARDIOVASCULAR MEDICATIONS: Reviewed. LABORATORY DATA: White blood cell count increased to 17.9, hemoglobin is 7.6 decreased from 8.4, hematocrit is 25, and his platelet count is 250,000. Sodium is 140, potassium is 4.3, chloride is 98, bicarb is 31, BUN is 29, creatinine is 0.83, and glucose is 121. Liver tests are within reference range. His blood gas this morning showed pH of 7.49, pCO2 of 47, PO2 of 77, and oxygen saturation 96% with a FiO2 of 40%, decreased from 50% yesterday. ASSESSMENT: 1. Acute respiratory failure. 2. Coronavirus or COVID-19 infection and associated pneumonia. 3. Anasarca. PLAN: Continue current cardiovascular medications. The patient's Lasix drip is being weaned off. His sedation is also being decreased. MD LEONORA Feldman/MODL /[id number]
--- NOTE | 2019-10-30 22:36 | Progress Note ---
DATE: 10/30/2019 CONSULTANTS: 1. Dr. Lowry, cutter aluminum sheet. 2. Dr. Maguire, Infectious Disease. 3. Dr. Casas, Cardiology. 4. Dr. Rodríguez, Nephrology. SUBJECTIVE: The patient is alert, awake, try to talk, and tracheostomy in place, on mechanical vent. Consult Physical Therapy. PHYSICAL EXAMINATION: VITAL SIGNS: Temperature 98.9, pulse is 102, respirations 24, blood pressure 127/61, pulse ox 94% on mechanical vent. GENERAL: Alert and awake. HEENT: Tracheostomy in place. LUNGS: With decreased breath sounds. CARDIOVASCULAR: Tachycardic, heart rate is 102 and low 110s. S1 and S2 heard. ABDOMEN: Soft. MUSCULOSKELETAL: Moves all extremities. NEUROLOGIC: Alert and awake. LABORATORY DATA: WBC 17.9, hemoglobin 7.6, hematocrit 25.0, and platelet is 250. Sodium 140, potassium 4.3, BUN 29, creatinine 0.83, estimated GFR greater than 60, blood glucose 121, AST 22, ALT 22. ABG; pH is 7.49, pCO2 of 47, PO2 of 77, bicarb 35, total CO2 of 37, O2 saturation 96. IMPRESSION: 1. Acute respiratory failure due to coronavirus disease 2019 pneumonia, status post tracheostomy, on mechanical vent per cutter aluminum sheet, off antibiotics. 2. Leukocytosis. WBC 17.3 today. We will defer to ID. 3. Chronic anemia. Hemoglobin is stable above 7. I will continue to monitor closely. 4. Hypokalemia, replaced. 5. Thrombocytopenia, resolved. 6. Anasarca. Diuretics per Renal. Decreased. 7. Tachycardia. Improving, now in the low 100s. Continue beta-blockers per Cardiology. 8. Debility. Physical Therapy to evaluate and treat. 9. Deep vein thrombosis prophylaxis. Continue Lovenox 40 mg subcu. PLAN: To continue weaning sedation, physical therapy as tolerated, and wean off the vent. Dictated by SNEHAL Laguerre Taylor Aparicio MD [facility]/MODL /[id number]
[2019-10-31] VITALS (25 sets, daily range): BP systolic 97–179; BP diastolic 46–87
[2019-10-31] MEDS: METOCLOPRAMIDE HCL 10 MG/2ML VIAL IV SCH ×4 (00:06→17:56)
[2019-10-31] MEDS: SUCRALFATE 1 GM/10 ML SUSP NG SCH ×4 (00:06→17:56)
[2019-10-31] MEDS: DEXMEDETOMIDINE 200MCG/NS 50ML 50 ML IV PRN ×6 (03:00→21:02)
--- NOTE | 2019-10-31 04:52 | NUR ---
Complete bed bath given. Bed linens changed.
[2019-10-31 04:59] LABS: BASOPHILS # (AUTO) 0.1 (0.0-0.1); BASOPHILS % 0.3 % (0.0-1.0); EOSINOPHILS # (AUTO) 0.4 (0.0-0.4); EOSINOPHILS % 2.6 % (0.0-6.0); HEMATOCRIT 23.8 % (38.2-49.6); HEMOGLOBIN 7.1 g/dL (14.0-18.0); LYMPHOCYTES % 6.2 % (18.0-39.1); MEAN CORPUSCULAR HEMOGLOBIN 26.9 pg (28-32); MEAN CORPUSCULAR HGB CONC 29.8 g/dL (31-35); MEAN CORPUSCULAR VOLUME 90.2 fL (81-99); MONOCYTES # (AUTO) 1.1 (0.2-0.8); MONOCYTES % 6.7 % (4.4-11.3); NEUTROPHILS # (AUTO) 13.6 (2.1-6.9); NEUTROPHILS % 83.2 % (38.7-80.0); PLATELET COUNT 232 x10e3/uL (140-360); RED BLOOD COUNT 2.64 x10e6/uL (4.3-5.7); RED CELL DISTRIBUTION WIDTH 14.8 % (11.7-14.4)
[2019-10-31 05:15] LABS: ALANINE AMINOTRANSFERASE 26 IU/L (0-55); ALBUMIN 3.6 g/dL (3.5-5.0); ALBUMIN/GLOBULIN RATIO 0.9 (0.8-2.0); ALKALINE PHOSPHATASE 117 IU/L (40-150); ANION GAP 15.9 mmol/L (8-16); BLOOD UREA NITROGEN 37 mg/dL (7-26); BUN/CREATININE RATIO 45 (6-25); CALCIUM 9.3 mg/dL (8.4-10.2); CARBON DIOXIDE 29 mmol/L (22-29); CHLORIDE 101 mmol/L (98-107); CREATININE, SERUM 0.83 mg/dL (0.72-1.25); EST GLOMERULAR FILTRATION RATE > 60 ML/MIN (60-); GLUCOSE 137 mg/dL (74-118); MAGNESIUM 2.5 MG/DL (1.3-2.1); PHOSPHORUS 3.4 MG/DL (2.3-4.7); POTASSIUM 3.9 mmol/L (3.5-5.1); SODIUM 142 mmol/L (136-145)
[2019-10-31] MEDS: ACETAMINOPHEN 325 MG TAB PO SCH ×2 (08:00→16:00)
[2019-10-31] MEDS: FAMOTIDINE 20 MG/2 ML VIAL IV SCH ×2 (09:17→20:50)
[2019-10-31] MEDS: POTASSIUM CHLORIDE 20MEQ/15ML UDC NG SCH (09:17)
[2019-10-31] MEDS: ASCORBIC ACID 500 MG TAB PO SCH ×2 (09:18→20:50)
[2019-10-31] MEDS: BALSAM PERU/CASTOR OIL 60 GM OINT...G. TP SCH ×2 (09:18→20:50)
[2019-10-31] MEDS: ZINC SULFATE 220 MG CAP PO SCH (09:18)
[2019-10-31] MEDS: ENOXAPARIN SOD INJ 40 MG/0.4 ML SYR SC SCH ×2 (09:18→20:50)
[2019-10-31] MEDS: CHOLECALCIFEROL 1,000 UNIT TAB PO SCH (09:18)
[2019-10-31] MEDS: MULTIVITAMINS/MINERALS TAB PO SCH (09:18)
[2019-10-31] MEDS: METOPROLOL TARTRATE 25 MG TAB PO SCH ×2 (09:18→20:50)
[2019-10-31] MEDS: FENTANYL 2000MCG/NS 250 250 ML IV PRN (09:58)
[2019-10-31] MEDS: MIDAZOLAM HCL 5MG/ML 10ML VIAL 100 ML IV PRN ×2 (09:59→22:31)
[2019-10-31] MEDS: TOBRAMYCIN 40 MG/ML 2ML VIAL NEB SCH ×2 (10:00→19:05)
--- NOTE | 2019-10-31 10:53 | Consultation ---
DATE OF CONSULTATION: 10/26/2019 CHIEF COMPLAINT: Fever and cough. HISTORY OF PRESENT ILLNESS: This patient is a 44-year-old male admitted with several day history of cough and fevers and was diagnosed with COVID-19 pneumonia. The patient was intubated and remained on the ventilator for several weeks. Requests for tracheostomy. PAST MEDICAL HISTORY: Positive for morbid obesity and hypertension. PAST SURGICAL HISTORY: Positive for spinal surgery. ALLERGIES: HE HAS NO DRUG ALLERGIES. SOCIALLY: No history of smoking or alcohol abuse. REVIEW OF SYSTEMS: Unobtainable. PHYSICAL EXAMINATION: VITAL SIGNS: Stable. T-max of 100. The patient is intubated in prone position. LUNGS: Bilateral rhonchi breath sounds. HEART: Regular rate and rhythm. ABDOMEN: Soft. EXTREMITIES: Mild lower extremity edema. Chest x-ray, bilateral infiltrates consistent with pneumonia. ASSESSMENT: COVID-19 pneumonia. Ventilator dependent for more than a month. PLAN: Tracheostomy tube placement. Attendant risks discussed with family. James Mott MD [facility]/MODL /[id number]
[2019-10-31] MEDS ORDERED: FUROSEMIDE INJ 10 MG/ML 2 ML VIAL IV PRN (11:00)
[2019-10-31] MEDS ORDERED: SODIUM CHLORIDE 0.9% 250ML 250 ML IV SCH (11:00)
--- NOTE | 2019-10-31 11:19 | NUR ---
DISCUSSED PT IN MDR. DEYANIRA PT STATES THE PT IS MAX ASSIST. PT TOLERATED PER NURSING PER ICU PROTOCOL. CATALINA, RN / BEDSIDE RN STATES THE PT IS MOVING HIS FEET AND FLEXING HIS ELBOWS. WEANING OFF VENT; MAY ATTEMPT TRACH COLLAR. DISCUSSED LTACH AN OPTION AT THIS POINT.
--- NOTE | 2019-10-31 11:28 | Progress Note ---
DATE: SUBJECTIVE: The patient is currently down to Versed at 4 mg and fentanyl at 150. He remains on propofol at 5. He is on pressure control ventilation set at a rate of 20 with a PEEP of 5 and FiO2 of 40%. PHYSICAL EXAMINATION: HEENT: Shows no facial swelling or erythema. VITAL SIGNS: There is tachycardia, around 100 to 110. Blood pressure is 133/66. HEENT: Shows no facial swelling or erythema. LYMPHATIC: Shows no submandibular, cervical, or supraclavicular adenopathy. CARDIAC: Reveals regular rate and rhythm. Normal S1, S2. LUNGS: Auscultation of lungs reveals rhonchorous breath sounds bilaterally. There is no wheezing. ABDOMEN: Soft, nontender. There is no rebound or guarding. EXTREMITIES: Shows no leg edema or calf tenderness. There is no cyanosis or clubbing. SKIN: Shows no rashes. NEUROLOGICAL: Shows no focal abnormalities. LABORATORY DATA: Sodium is 142. BUN to creatinine ratio is 37 to 0.83. The albumin is 3.6. The white blood cell count is 16.3 and hemoglobin is 7.1. The platelet count is 232. IMPRESSION: 1. Acute respiratory failure. 2. Viral pneumonia and COVID-19 infection. 3. Splenomegaly. 4. Anemia. 5. Anasarca. PLAN: 1. Gradually wean off fentanyl and Versed. 2. Use Precedex and propofol as needed while weaning Versed and fentanyl. 3. One unit of packed red blood cells. 4. Taper Lasix drip. 5. Continue enteral feedings. Maximilian Lowry MD [facility]/MODL /[id number]
--- NOTE | 2019-10-31 12:21 | NUR ---
Wood Carving Lathe Operator called pt's mom for follow up. Pt's mom hopeful and thankful for "small improvements." Wood Carving Lathe Operator provided empathic listening and prayer. Will continue to follow as able. Pt's mom expressed appreciation for continued support. [facility] O: [phone]
[2019-10-31] MEDS: FUROSEMIDE INJ 100 MG in SODIUM CHLORIDE 0.9% 100 ML 90 ML IV SCH (13:08)
--- NOTE | 2019-10-31 14:51 | NUR ---
Nutrition Intervention Note RD Recommendation(s) for Physician: - Continue Pivot 1.5 @ goal of 40 ml/hr at this time (to provide 1440 kcal and 90 gm protein). Give 2 packets/day Beneprotein (provides an additional 50 kcal and 12 gm protein). Propofol provides an additional 137 currently. - Pt may be fed at goal rate when prone in reverse Trendelenburg position with HOB 10-25 degrees - Water flushes per MD. Plan of Care: RD following, TF rec's, monitor adequacy and tolerance, tube feed recommendation Nutrition reason for involvement: follow up RD Assessment 10/30: Follow up. Chart reviewed. Last recorded propofol rate was 5.2 mL/hr. Pt is tolerating TF per RN and is receiving Pivot @ 40 mL/hr. Current tube feeding remains appropriate. Will continue to monitor. 10/27: Follow up. Pt s/p trach placement yesterday. Pt observed outside of room, supine and physically appears well nourished. Spoke with RN on unit, TF resumed, infusing at goal rate post trach placement, and pt tolerating well. Pt continues to require fluctuating Propofol dosage. Current TF remains appropriate to meet needs, Propofol providing additional kcal currently. Chart reviewed. Will continue to monitor. 10/23: Follow up. Chart reviewed. Pt remains intubated and sedated. Pt is receiving propofol at 11.3 mL/hr which provides an additional 298 kcal. Last recorded tube feed rate was 30 mL/hr this morning. Pt is receiving Vital High Protein per RN. Recommend modifying tube feeding to Pivot 1.5. RD to manage TF order per Dr. Lowry. Will continue to monitor. 10/20: Follow up. Pt remains intubated, sedated, and paralyzed. Propofol stopped yesterday. Pt continues to require intermittent proning. No GI distress, pt having BMs, and TF currently infusing at 30 ml/hr. Noted Phos elevated after KPhos replacement. Plan for trach placement. Chart reviewed. In light of Propofol d/c, updated TF rec's provided. RD to manage TF order per Dr. Lowry. Will continue to monitor. 10/16: Follow up. Chart reviewed. Pt remains intubated and sedated. Pt is in the prone position per chart. Pt remains on Vital AF 1.2 trickle feeding currently at 10 mL/hr Recommended considering TPN if tube feeding rate is unable to be increased. Pt is receiving propofol at 22.6 mL/hr per chart which provides 597 kcal. Will continue to monitor 10/12: Follow up. Pt remains intubated and sedated with Propofol and Versed. Pt paralyzed with Nimbex. Pt now on Levophed, currently at 10 mcg/min. Pt on trickle TF currently, pt with ileus per MD notes. Spoke with Dr. Lowry over the phone, RD recommended considering TPN as pt continues to not meet needs with TF and currently with an ileus. MD stated that he would prefer to utilize the gut for now and will re-evaluate. RD requested Phos and Mg be drawn in case TPN required tomorrow to evaluate for replacements and initiation. Noted afternoon Phos and Mg WNL. Chart reviewed, plan for trach placement. TPN and TF rec's provided. Will continue to monitor. 10/09: Follow up. Chart reviewed. MD note indicates pt is in the supine position. Per documentation, pt is receiving TF at 30mL/hr not meeting kcal or protein needs. Current recommendations remain appropriate recommend increasing rate to 60 mL/hr. Will continue to monitor. 10/05: Follow up. Chart reviewed. Pt remains intubated and was in the supine position overnight. Pt is no receiving propofol at this time. Pts tube feed is at 20 mL/hr per chart not meeting kcal or protein needs. Tube feed recommendations provided. Will continue to monitor. 10/01: Follow up. Pt remains intubated, sedated on Propofol, and paralyzed. Pt requiring to be proned. TF rate decreased to 20 ml/hr currently- not meeting kcal or protein needs. TF rec's provided. Chart reviewed. Will continue to monitor. 09/29: Follow up. Pt remains intubated, sedated on high dose Propofol, and paralyzed. Pt requiring to be in intermittent prone positioning. TF infusing at 35 ml/hr, not meeting protein needs. TF rec's provided. Chart reviewed. Will continue to monitor. 09/25: Follow up. Chart reviewed. Pt remains intubated and sedated. Pt is receiving propofol at 7.8 mL/hr which provides 205 lipid kcal. TF is infusing at 20 mL/hr. Recommend modifying tube feed formula to Vital High Protein at this time. Will continue to monitor. 09/22: Follow up. Pt remains intubated, sedated, and paralyzed. Pt requiring proning. TF infusing at 10 ml/hr and TPN weaned to 20 ml/hr. Chart reviewed. TF and TPN rec's provided pending ability to advance TF. Will continue to monitor. 09/18: Follow up. Chart reviewed. Pt remains intubated and sedated. Pt was started on tube feeding. Last recorded rate was 20 mL/hr this afternoon. Pt continues to receive TPN @ 42 mL/hr. Propofol rate is at 13.4 mL/hr (provides 354 kcal). Recommendations provided. Will continue to monitor 09/15: Follow up. Pt remains intubated, sedated on Propofol at 19.6 ml/hr, and paralyzed. Pt continues on TPN at 42 ml/hr, not meeting needs. Pt continues with persistent ileus and is receiving enemas and suppositories. Pt requiring daily proning 2/2 respiratory status. TF order remains, recommend NPO for now. TPN goal rec's provided, continues at 42 ml/hr. Chart reviewed. Will continue to monitor. 09/11: Follow up. Chart reviewed. Pt remains intubated and sedated. Pt is receiving 30 mL/hr of propofol per documentation which provides 792 lipid kcal. Tube feeding has been held due to abdominal distention and pt was started on TPN @ 42 mL/hr today. MD note indicates pt has an ileus. Recommendations provided. Will continue to monitor. 09/07: Follow up. Chart reviewed. Pt remains intubated and sedated. Pt is receiving 23.6 mL/hr of propofol per documentation which provides 623 lipid kcal. TF was at 20 mL/hr last night per chart. Per MD note, pts abdomen is distended and has not had a BM. Will continue to monitor. 09/04: Follow up. Pt remains intubated and sedated. Pt is receiving 9 mL/hr of propofol per documentation, which provides 238 lipid kcal. TF was at 20 mL/hr per chart yesterday. No additional administration rate is available. Will continue to monitor. 09/02: Follow up. Pt remains intubated, paralyzed, and sedated on Propofol and Versed. Pt requiring proning. TF rate at 10 ml/hr per TF documentation yesterday- inadequate EN currently, no additional EN administration available per chart. Recommend continuing EN while pt is proned by placing them in reverse Trendelenburg position. If unable to advance TF to goal rate, recommend considering PN. Chart reviewed. Will continue to monitor. 08/29: Initial encounter with patient. Pt is sedated and orally intubated. Pt was not able to provide a nutrition Hx at the time of visit. Unable to observe oral cavity or perform a nutrition focused physical exam. Jevity 1.2 infusing at 20ml hr with a goal of 50ml/hr. Propofol provides 1.1kcal/ml EN provides 576 kcals, 26.64g of protein, and 387.36ml of free H2O Principal Problems/Diagnoses: CoVID 19 pneumonia PMH: No significant medical Hx, overweight/obesity GI: soft/large/ round abdomen, last recorded BM 10/30 Skin: stage 2 right ear pressure ulcer, penis ischemic edema, bilateral knees- ischemic edema, scrotal abrasion Labs: 10/30: Na 142, K 3.9, BUN 37, Glu 137, Ca 9.3, Phos 3.4, Mg 2.5 10/27: Na 139, K 3.4, BUN 25, Cr 0.76, Gluc 111, Phos 3.6, Mg 2.2 10/23: Na 138, K 3.5, BUN 20, Cr 0.76, Glu 114, Ca 8.6 10/20: Na 136, K 5, BUN 12, Cr 0.6, Gluc 108, Phos 5.9, Mg 2.4, POC Gluc 103-115 10/16: Na 143, K 3.4, BUN 10, Cr 0.51, Glu 101 10/12: Na 139, K 4.1, BUN 20, Cr 0.57, Cl 103, CO2 25, Gluc 135, Phos 3.3, Mg 1.8 10/09: Na 140, K 3.4, BUN 15, Cr 0.44, Glu 103 10/05: Na 139, K 3.3, BUN 15, Cr 0.42, Glu 113, Ca 8.2 10/01: Na 139, K 4, BUN 12, Cr 0.59, Gluc 141, POC Gluc 127-175 09/29: Na 138, K 2.9, BUN 5, Cr 0.39, Gluc 87, POC 107-116 Meds: furosemide, reglan, carafate, fentanyl, metoprolol, multivitamin with minerals, zinc sulfate, vitamin D, vitamin C, pepid, propofol at 5.2 mL/hr, Ht: 67 in. Wt: 193 lbs (10/26)- continued wt fluctuations, 203.56 lbs (10/17) 156 lbs- questionable wt (10/16) 206 lbs (10/12) 212 lbs (10/09) 236 lbs (10/05) 251 lbs (09/28) 253.5 lbs (09/25) 254.31 lb, 200.44lbs (08/29) - admit wt BMI: 31.4kg/m2 (weight used- 200 lbs) IBW: 148 lbs Malnutrition Evaluation (10/28/2019) The patient does not meet criteria for a specified degree of malnutrition at this time. Will re-evaluate at follow-up as appropriate. Intake adequacy: TF meeting needs Wt loss: pt with wt fluctuations since admit related to fluid Fat loss: none, ample skinfold thickness of arm observed outside pt room Muscle loss: none, shoulder round, anabaptist muscle apparent as observed outside of pt room Edema: moderate, +2 edema Functional status: JACOB due to intubation Nutrition Prescription (Diet Order): Pivot 1.5 at 40 ml/hr (providing 1440 kcal and 90 gm protein) propofol providing an additional 137 kcal Estimated Nutritional Needs: 2528-1731 calories/day (22-25 kcal/kg IBW) 101-135 g protein/day (1.5-2 g pro/kg IBW) Diet Adequacy: meeting calorie needs, meeting protein needs Diet Education Needs Assessment: Diet education not indicated. Nutrition Care Level: moderate- TF at goal rate Nutrition Diagnosis: Inadequate energy and protein intake related to intubation as evidenced by pt requiring alternative means of nutrition. Goal: Patient will meet 75-100% of estimated needs by follow up Progress: goal met Interventions: Composition, Rate, Route, Recommended modifications Monitoring/Evaluation: Total energy intake, Total protein intake, Formula/Solution, Prescription medication, Weight change Signed: Nina Reese RD, CHRISTIANE
[2019-10-31 15:30] LABS: ABG HCO3 32 mmol/L (22-26); ABG PCO2 42 mmHg (35-45); ABG PO2 72 mmHg (80-105); ABG TCO2 34
[2019-10-31] MEDS ORDERED: SODIUM CHLORIDE 0.9% 250ML 250 ML ONE (15:30)
--- NOTE | 2019-10-31 16:58 | Progress Note ---
DATE: 10/31/2019 CONSULTANTS: 1. Dr. Lowry, office secretary. 2. Dr. Maguire, Infectious Disease. 3. Dr. Casas, Cardiology. 4. Dr. Rodríguez, Nephrology. SUBJECTIVE: The patient is much more alert and awake, status post tracheostomy, still with low-grade fever, was up with physical therapy today. PHYSICAL EXAMINATION: VITAL SIGNS: Temperature 98.8, pulse is 108, respirations 28, blood pressure 154/79, and pulse ox is 98% on the vent. GENERAL: Alert and awake. HEENT: Normocephalic. Tracheostomy in place. LUNGS: With decreased breath sounds. CARDIOVASCULAR: Tachycardia. Heart rate in 108. ABDOMEN: Soft. MUSCULOSKELETAL: Moves all extremities. No edema. NEUROLOGIC: Alert and awake. Unable to evaluate orientation. LABORATORY DATA: WBC 16.35, hemoglobin 7.1, hematocrit 23.8, and platelets 232. Sodium 142, potassium 3.9, BUN is 37, creatinine 0.83, estimated GFR greater than 60, glucose 137, and magnesium 2.5. AST 20, ALT 26, and alkaline phosphate 117. IMPRESSION: 1. Acute respiratory failure due to COVID-2019 pneumonia. Status post tracheostomy on the vent per office secretary. Off antibiotics. 2. Leukocytosis. WBC is 16.35. We will defer to ID. 3. Jlzin-nj-lqtfjmt anemia. Hemoglobin is 7.1. Transfuse one unit of PRBC. 4. Hypokalemia. Replace. 5. Thrombocytopenia. Resolved. 6. Anasarca. Improved to diuretics per Renal. 7. Tachycardia. Improving, continue on beta blockers per Cardiology. 8. Debility. Up with physical therapy as tolerated. 9. Deep vein thrombosis prophylaxis. Continue Lovenox 40 mg subcutaneous. PLAN: To continue weaning sedation, transfuse one unit, and up with physical therapy and monitor of antibiotics per ID. Dictated by SNEHAL Laguerre Taylor Aparicio MD MY/MODL /[id number]
--- NOTE | 2019-10-31 18:35 | NUR ---
Infectious disease progress note Patient remains intensive care unit he patient is much more alert and awake, status post tracheostomy, still with low-grade fever, was up with physical therapy today. Seems to be a bit more alert PHYSICAL EXAMINATION: VITAL SIGNS: Temperature 98.8, pulse is 108, respirations 28, blood pressure 154/79, and pulse ox is 98% on the vent. GENERAL: Alert and awake. HEENT: Normocephalic. Tracheostomy in place. LUNGS: With decreased breath sounds. CARDIOVASCULAR: Tachycardia. Heart rate in 108. ABDOMEN: Soft. MUSCULOSKELETAL: Moves all extremities. No edema. NEUROLOGIC: Alert and awake. Unable to evaluate orientation. LABORATORY DATA: WBC 16.35, hemoglobin 7.1, hematocrit 23.8, and platelets 232. Sodium 142, potassium 3.9, BUN is 37, creatinine 0.83, estimated GFR greater than 60, glucose 137, and magnesium 2.5. AST 20, ALT 26, and alkaline phosphate 117. IMPRESSION: 1. Acute respiratory failure due to COVID-2019 pneumonia. 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 Off antibiotics. 2. Leukocytosis. WBC is 16.35. clinically stable hyperreactive reassess probably multifactorial 3. Ndytk-xf-npiqduf anemia. Hemoglobin is 7.1. Transfuse one unit of PRBC. 4. Hypokalemia. Replace. 5. Thrombocytopenia. Resolved. 6. Anasarca. Improved to diuretics per Renal. 7. Tachycardia. Improving, continue on beta blockers per Cardiology. 8. Debility. Up with physical therapy as tolerated. 9. Deep vein thrombosis prophylaxis. Continue Lovenox 40 mg subcutaneous. Continue as ordered
--- NOTE | 2019-10-31 19:48 | Progress Note ---
DATE: 10/31/2019 Cardiology Progress Note SUBJECTIVE: Awake, responsive to questions. Trach in place. OBJECTIVE: VITAL SIGNS: Temperature 98.4, heart rate 105, blood pressure 150/77, respiratory rate 31, O2 saturation 99%. GENERAL: Debilitated, chronically ill-appearing. NECK: With trach in place. CHEST: With decreased breath sounds. CARDIOVASCULAR: Regular rate and rhythm. Normal S1 and S2. ABDOMEN: Soft. EXTREMITIES: No edema. CARDIOVASCULAR MEDICATIONS: Reviewed. Metoprolol tartrate 5 q.6 p.r.n., furosemide 20 p.r.n., Lovenox 40 q.12, metoprolol tartrate 25 q.12. STUDIES: Reviewed. Sodium 142, potassium 3.9, chloride 101, bicarbonate 29, BUN 37, creatinine 0.8, glucose 137. White blood cells 16, hemoglobin 7, platelets 232. INR 1.2. PT 16.5, PTT 37. AST 20, ALT 26, alkaline phosphatase 117, total bilirubin 0.4. ASSESSMENT AND PLAN: A 44-year-old man presents with COVID-19 infection, community-acquired pneumonia, status post prolonged respiratory failure, now extubated with trach in place, debility, hypertension, szpup-jy-kwsozpa diastolic heart failure, and anemia. RECOMMENDATIONS: Continue current cardiovascular medications. Emphasis on physical therapy and reconditioning. MD OPAL Del Valle/ANGELA /[id number]
[2019-10-31] MEDS: PROPOFOL IV EMULSION 10MG/ML 100 ML IV PRN (21:52)
[2019-11-01] VITALS (29 sets, daily range): BP systolic 103–159; BP diastolic 54–78
[2019-11-01] MEDS: FUROSEMIDE INJ 100 MG in SODIUM CHLORIDE 0.9% 100 ML 90 ML IV SCH ×2
[2019-11-01] MEDS: SUCRALFATE 1 GM/10 ML SUSP NG SCH ×5 (01:44→23:24)
[2019-11-01] MEDS: METOCLOPRAMIDE HCL 10 MG/2ML VIAL IV SCH ×5 (01:44→23:24)
[2019-11-01] MEDS: PROPOFOL IV EMULSION 10MG/ML 100 ML IV PRN (04:25)
[2019-11-01 05:55] LABS: BASOPHILS % 0.2 % (0.0-1.0); EOSINOPHILS # (AUTO) 0.5 (0.0-0.4); EOSINOPHILS % 3.6 % (0.0-6.0); HEMATOCRIT 23.5 % (38.2-49.6); HEMOGLOBIN 7.1 g/dL (14.0-18.0); LYMPHOCYTES % 7.3 % (18.0-39.1); MEAN CORPUSCULAR HEMOGLOBIN 27.3 pg (28-32); MEAN CORPUSCULAR HGB CONC 30.2 g/dL (31-35); MEAN CORPUSCULAR VOLUME 90.4 fL (81-99); MONOCYTES # (AUTO) 1.1 (0.2-0.8); MONOCYTES % 7.9 % (4.4-11.3); NEUTROPHILS # (AUTO) 11.3 (2.1-6.9); NEUTROPHILS % 80.1 % (38.7-80.0); PLATELET COUNT 214 x10e3/uL (140-360); RED CELL DISTRIBUTION WIDTH 15.4 % (11.7-14.4)
[2019-11-01] MEDS: MIDAZOLAM HCL 5MG/ML 10ML VIAL 100 ML IV PRN (06:25)
[2019-11-01] MEDS: FENTANYL 2000MCG/NS 250 250 ML IV PRN (06:28)
[2019-11-01 06:33] LABS: ALANINE AMINOTRANSFERASE 36 IU/L (0-55); ALBUMIN 3.4 g/dL (3.5-5.0); ALBUMIN/GLOBULIN RATIO 0.9 (0.8-2.0); ALKALINE PHOSPHATASE 128 IU/L (40-150); ANION GAP 14.7 mmol/L (8-16); BLOOD UREA NITROGEN 41 mg/dL (7-26); BUN/CREATININE RATIO 53 (6-25); CALCIUM 8.7 mg/dL (8.4-10.2); CARBON DIOXIDE 27 mmol/L (22-29); CHLORIDE 104 mmol/L (98-107); CREATININE, SERUM 0.78 mg/dL (0.72-1.25); EST GLOMERULAR FILTRATION RATE > 60 ML/MIN (60-); GLUCOSE 118 mg/dL (74-118); MAGNESIUM 2.5 MG/DL (1.3-2.1); POTASSIUM 3.7 mmol/L (3.5-5.1); SODIUM 142 mmol/L (136-145)
--- NOTE | 2019-11-01 06:57 | Diagnostic Imaging Report ---
EXAMINATION: CHEST SINGLE (PORTABLE) INDICATION: ^resp failure ^[id number] ^[id number] COMPARISON: 10/30/2019 FINDINGS: AP view TUBES and LINES: Stable tracheostomy tube and enteric tube. LUNGS: Lungs are well inflated. Again seen bilateral airspace opacities, slightly increased in left lower lung field when compared to prior exam. PLEURA: No visible pneumothorax. Unchanged left apical pleural thickening or loculated effusion. HEART AND MEDIASTINUM: The cardiomediastinal silhouette is enlarged and partially obscured.. BONES AND SOFT TISSUES: No acute osseous lesion. Soft tissues are unremarkable. UPPER ABDOMEN: No free air under the diaphragm. IMPRESSION: Again seen bilateral airspace opacities, slightly increased in left lower lung field. Signed by: Dr. Eldon Sanchez MD on 11/01/2019 6:54 AM
[2019-11-01] MEDS: TOBRAMYCIN 40 MG/ML 2ML VIAL NEB SCH (07:15)
--- NOTE | 2019-11-01 07:35 | Progress Note ---
DATE: 10/31/2019 Renal Progress Note SUBJECTIVE: Followed for hypokalemia and fluid overload. The patient has COVID-19 pneumonia. Potassium has been holding quite study now, had started to go up significantly. Therefore, I decrease the dose down to once a day of potassium chloride. Potassium down at 3.9. The patient is getting Lasix drip, remains on the vent. OBJECTIVE: VITAL SIGNS: As noted. Blood pressures are in the 140s/60s. The patient remains on the vent at 40% FiO2. GENERAL: The patient has tracheostomy in place. LUNGS: Rhonchi bilaterally. CARDIOVASCULAR: S1, S2. No rub. ABDOMEN: Soft. Positive bowel sounds. EXTREMITIES: No edema. LABORATORY DATA: Sodium 142, potassium 3.9, chloride 101, carbon 37, . IMPRESSION AND PLAN: 1. Hypokalemia. We will continue with potassium chloride via G-tube, decrease it to once a day since the potassium was starting to shoot up to 4.3, in fact down to 3.9. If needed, can increase the potassium via G-tube over the weekend if the potassium trends down once again. 2. Fluid overload. I had decreased the Lasix drip down to 2.5 mg/hour, however, it has been increased back up since the patient's urine output had dropped. May have to increase the potassium via G-tube back again after the Lasix drip is going to be a higher dose. 3. Metabolic alkalosis. I feel the patient is volume contracted. We will recommend to decrease the Lasix drip rate. However, if the patient is having positive fluid balance, then would be okay to increase Lasix drip back. 4. COVID-19 pneumonia. Plan for primary MD and Pulmonary Critical Care. Alex Roger MD TH/MODL /[id number]
--- NOTE | 2019-11-01 07:36 | Progress Note ---
DATE: 10/31/2019 SUBJECTIVE: Followed for hypokalemia, fluid overload, COVID-19 pneumonia. The patient remains on the vent via trach now. The patient has excellent urine output. The patient's metabolic alkalosis is improving now and response to decreased dose of Lasix drip. The patient's potassium is slightly better 3.9. The patient will continue with potassium once a day via G-tube for now. OBJECTIVE: VITAL SIGNS: Have been noted and are stable. LUNGS: Bilateral rhonchi. CARDIOVASCULAR: S1, S2. No rub. ABDOMEN: Soft. Positive bowel sounds. EXTREMITIES: No edema. LABORATORY WORKUP: As noted. Potassium is 3.9, BUN has 37, creatinine is 0.83. IMPRESSION AND PLAN: 1. Hypokalemia. Continue potassium 40 mEq daily via G-tube. If the potassium trends downward again over the weekend, can increase the potassium chloride. 2. Hypertension. Blood pressure is currently controlled. 3. Metabolic alkalosis, improving in response to decrease dose of Lasix drip. If required, can increase the Lasix drip back up if the patient starts to have more positive fluid balance. 4. COVID-19 pneumonia. Plan per primary and Pulmonary Critical Care. MD ERIKA Bocanegra/MODL /[id number]
--- NOTE | 2019-11-01 09:05 | NUR ---
dr. Sherwood (hematology/oncology) on unit, gave verbal orders to obtain ultrasound of retroperiteal area to assess for s/s bleeding. also order transfuse 1prbc. vorb dr. sherwood/natividad gomes
[2019-11-01] MEDS ORDERED: SODIUM CHLORIDE 0.9% 250ML 250 ML IV NR (09:30)
--- NOTE | 2019-11-01 10:16 | Progress Note ---
DATE: SUBJECTIVE: The patient is awake. He does interact. His Versed is decreased to 2 mg and fentanyl is now at 50 mcg. He remains on propofol at 10 as well as Precedex at 0.12. PHYSICAL EXAMINATION: VITAL SIGNS: The patient is afebrile. The blood pressure is 110/60, saturation is 100%. He remains on a pressure control with 5 of PEEP and 20 above PEEP. His FiO2 is set at 40%. Blood pressure is 110/57, pulse is 84. HEENT: Shows no facial swelling or erythema. LYMPHATIC: Shows no submandibular, cervical, or supraclavicular adenopathy. There is a tracheostomy. The site is clean. There is no drainage. CARDIAC: Reveals regular rate and rhythm with normal S1 and S2. LUNGS: Auscultation of lungs reveals crackles at the bases. There is no wheezing. ABDOMEN: Soft and nontender. There is no rebound or guarding. EXTREMITIES: Shows no leg edema or calf tenderness. There is no cyanosis or clubbing. SKIN: Shows no rashes. NEUROLOGICAL: Shows the patient to be alert and interactive. LABORATORY DATA: White blood cell count is 14, hemoglobin is 7.1. The platelet count is 214. The BUN to creatinine ratio is 41 to 0.78. Other electrolytes are within normal limits. IMPRESSION: 1. Acute respiratory failure that is improving. 2. Viral pneumonia and COVID-19 infection. 3. Splenomegaly. 4. Persistent anemia requiring packed red blood cells. 5. Myopathy of critical illness. PLAN: 1. Continue to wean Versed and fentanyl. 2. Spontaneous breathing trials daily. 3. Additional unit of packed red blood cells today. 4. Continue enteral feedings. 5. Case discussed with Respiratory, nursing, Internal Medicine, and administration. MD SAMINA Angel/ANGELA /[id number]
[2019-11-01 10:28] LABS: ABG PCO2 47 mmHg (35-45); ABG PH 7.41 (7.35-7.45); ABG PO2 59 mmHg (80-105)
[2019-11-01 10:29] LABS: ABG HCO3 30 mmol/L (22-26); ABG TCO2 31
[2019-11-01] MEDS: FAMOTIDINE 20 MG/2 ML VIAL IV SCH ×2 (10:37→20:52)
[2019-11-01] MEDS: POTASSIUM CHLORIDE 20MEQ/15ML UDC NG SCH (10:37)
[2019-11-01] MEDS: BALSAM PERU/CASTOR OIL 60 GM OINT...G. TP SCH ×2 (10:38→20:52)
[2019-11-01] MEDS: ENOXAPARIN SOD INJ 40 MG/0.4 ML SYR SC SCH ×2 (10:38→20:52)
[2019-11-01] MEDS: METOPROLOL TARTRATE 25 MG TAB PO SCH ×2 (10:38→20:52)
[2019-11-01] MEDS: CHOLECALCIFEROL 1,000 UNIT TAB PO SCH (10:38)
[2019-11-01] MEDS: ASCORBIC ACID 500 MG TAB PO SCH ×2 (10:38→20:52)
[2019-11-01] MEDS: MULTIVITAMINS/MINERALS TAB PO SCH (10:38)
[2019-11-01] MEDS: ZINC SULFATE 220 MG CAP PO SCH (10:38)
[2019-11-01] MEDS: DEXMEDETOMIDINE 200MCG/NS 50ML 50 ML IV PRN ×7 (10:38→23:24)
--- NOTE | 2019-11-01 12:12 | Diagnostic Imaging Report ---
EXAM: Renal Ultrasound INDICATION: assess for s/s bleeding COMPARISON: None TECHNIQUE: Transverse and longitudinal images of the kidneys and bladder were obtained. FINDINGS: Right Kidney: Size: 14.9 cm Echogenicity: Normal Parenchymal thickness: Normal Collecting system: No hydronephrosis Stones: None Cyst/Mass: None Left Kidney: Size: 14.5 cm Echogenicity: Normal Parenchymal thickness: Normal Collecting system: No hydronephrosis Stones: None Cyst/Mass: None Bladder: Normal IMPRESSION: Normal renal ultrasound exam. Signed by: Chirag Polanco MD on 11/01/2019 12:08 PM
--- NOTE | 2019-11-01 12:12 | Progress Note ---
DATE: 11/01/2019 Cardiology Progress Note SUBJECTIVE: No new complaints. OBJECTIVE: VSS GENERAL: Mr. Miles is awake. NECK: Neck with trach in place. CHEST: Decreased breath sounds. CARDIOVASCULAR: Regular rate and rhythm. Normal S1, S2. ABDOMEN: Soft. Bowel sounds positive. EXTREMITIES: No edema. CARDIOVASCULAR MEDICATIONS: Reviewed, furosemide 2.5 mg/hour, Lovenox 40 q.12 hours, metoprolol tartrate 5 q.6 hours. STUDIES: Reviewed. Sodium 142, potassium 3.7, chloride 104, bicarbonate 27, BUN 41, creatinine 0.78, glucose 118. White blood cells 14, hemoglobin 7.1, platelets 214,000. PT 16.5, PTT 37.7, INR 1.26. AST 31, ALT 36, alkaline phosphatase 120, total bilirubin 0.5. ASSESSMENT AND PLAN: A 44-year-old man presents with anemia, acute on chronic diastolic heart failure, hypertension, COVID-19 infection, community-acquired pneumonia, acute respiratory failure with prolonged ventilatory support now extubated, status post trach, deconditioning. RECOMMENDATIONS: Continue current cardiovascular medications. Suggest transitioning to low-dose Lasix dosing, deferred decision to Nephrology. Continue rest of cardiovascular medication. MD OPAL Del Valle/ANGELA /[id number] MTDD
--- NOTE | 2019-11-01 15:12 | Progress Note ---
DATE: SUBJECTIVE: Mr. Miles seems to be doing better. He is more alert. He remains weak. No specific complaints. His vitals seem to be stable. We are still weaning him down. PHYSICAL EXAMINATION: GENERAL: He is currently alert, oriented, follows commands. VITAL SIGNS: Stable, currently afebrile. HEENT: He is not icteric. NECK: Supple. CHEST: Clear. HEART: S1, S2. ABDOMEN: Soft. Bowel sounds present. EXTREMITIES: No edema. SKIN: No rash. IMPRESSION: Respiratory failure and debility, splenomegaly, status post coronavirus disease-19. Continue to wean his medication. Cultures noted. 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 Clinically, he seems to be doing good. Continue with Lovenox as ordered. Continue PT/OT. We will follow. MD MAYURI Taylor/ANGELA /[id number]
[2019-11-01] MEDS ORDERED: SODIUM CHLORIDE 0.9% 50ML 50 ML ONE (16:05)
[2019-11-01] MEDS ORDERED: IOPAMIDOL 370 MG/ML 200 ML INFUS..BTL INJ ONE (16:06)
--- NOTE | 2019-11-01 17:06 | NUR ---
HEMATOLOGY/ONCOLOGY PROGRESS NOTE: HPI: Patient with trach in place. Discussed with RN, remains on vent though weaning vent settings. No signs of bleeding. Plan for 1 unit PRBC today. ROS: 14 point ROS unable to obtain secondary to contact precautions. PHYSICAL EXAM: Vitals: Reviewed as per EMR. PE not performed due to COVID-19 contact precautions. LABORATORY/RADIOLOGY DATA: Reviewed per EMR. ASSESSMENT AND PLAN: Mr. Miles is a 44-year-old male with past medical history of hypertension who was admitted on 08/24/2019 due to cough and fever. Patient was found to be positive for COVID-19. Intubated due to worsening respiratory status. Patient has been treated with full-dose Lovenox since 09/08/19. Has required PRBC previously during admission. Patient now with dropping platelet count and recurrent anemia requiring PRBC transfusion. Hematology/Oncology has been consulted to assist with the management. 1. Thrombocytopenia: Likely secondary to consumption for infection. DIC panel showed no coagulopathy, elevated fibrinogen, does not appear DIC. Acute hepatitis panel negative. Abdominal US without evidence of liver cirrhosis or splenomegaly. HIT panel negative on 09/15/2019. Repeat DIC panel does not appear DIC with elevated fibrinogen level. THROMBOCYTOPENIA RESOLVED, now with mild thrombocytosis which may be reactive. Continue on Lovenox 40mg sq BID. 2. Anemia: Anemia panel appears mixed picture AOCD + RODRIGUEZ with noted low B12 level. Macrocytosis probably combination of B12 deficiency and possibly also related to bone marrow suppression from viral infection. Ferritin mildly elevated, likely as acute phase reactant. Repeat ferritin significantly more elevated hold IV iron. Reticulocyte count and LDH mildly elevated, haptoglobin elevated, does not appear hemolysis. S/p multiple PRBC transfusions, last on 10/31/2019. Repeat ferritin level 10/25 still markedly elevated, will continue to hold IV iron. No improvement in H and H following PRBC transfusion yesterday.Plan for 1 additional unit today and plan to check retroperitonal USG to r/o bleed. 3. COVID-19 PNA: In the ICU, S/P tracheostomy placement, weaning off vent as tolerated, sedated. Undergoing intermittent proning. Pneumocystis carinii smear negative. Sputum culture from 10/11 with pseudomonas, fungal cultures pendi ng. On IV antibiotics, leukocytosis stable. blood culture 10/28/19 with pseudomonas and staph aureus. Pulmonary and infectious disease on board. 4. Melena/ileus/abd distention: On Pepcid IV q12h. Improved. Abdominal US with some billiary sludge and splenomegaly. On TFs with nutrition/GI on board. 5. Fluid overload/oligoanuria: On Lasix, monitor UOP per Nephrology on board. 6. DVT proph: Continue on Lovenox 40mg sq BID. 7. GOC: Patient is s/p trach placement. Disposition per primary team. Thank you for the consult. I will be available. Please call with questions.
--- NOTE | 2019-11-01 17:43 | Progress Note ---
DATE: 11/01/2019 Nephrology Progress Note SUBJECTIVE: Followup for hypokalemia, fluid overload in the context of COVID-19 pneumonia. The patient remains on vent, connected through a tracheostomy. Excellent urine output to IV Lasix infusion. OBJECTIVE: VITAL SIGNS: Blood pressure is stable. LUNGS: Bilateral air entry to ventilated breath. CARDIOVASCULAR: Shows S1, S2. ABDOMEN: Soft, nondistended. EXTREMITIES: Without pitting edema. LABORATORY DATA: Hemoglobin 7.1. Potassium 3.7. BUN and creatinine normal. Bicarb 27. IMPRESSION: 1. Hypokalemia secondary to IV Lasix infusion, currently acceptable. Continue to replace as needed. 2. Fluid overload, responding to IV Lasix infusion. Adjustment as per respiratory status. 3. Metabolic alkalosis, improving with decreased IV Lasix infusion dose. 4. Blood pressure, stable. Marcos Marsh MD [facility]/MODL /[id number]
--- NOTE | 2019-11-01 18:33 | NUR ---
Patient was transferred from ICU. Patient has a trach and vent dependent. patient is able to follow simple command but seems sometime confuse and picking on ekg leads.
--- NOTE | 2019-11-01 19:02 | Diagnostic Imaging Report ---
EXAM: CT Chest, Abdomen and Pelvis WITH contrast INDICATION: Infection/ COMPARISON: None. TECHNIQUE: Chest, abdomen and pelvis were scanned utilizing a multidetector helical scanner from the lung apex to the pubic symphysis after administration of IV contrast. Coronal and sagittal reformations were obtained. Dose modulation, iterative reconstruction, and/or weight based adjustment of the mA/kV was utilized to reduce the radiation dose to as low as reasonably achievable. Routine protocol was performed. Scan was performed when during portal venous phase. IV CONTRAST: 150 mL of Omnipaque 300 ORAL CONTRAST: Water COMPLICATIONS: None RADIATION DOSE: Total DLP: 1019.34 mGy*cm Estimated effective dose: (DLP x 0.015 x size factor) mSv CTDIvol has been reviewed. It is below the limits set by the Radiation Protocol Committee (RPC). FINDINGS: LINES and TUBES: There is tracheostomy tube in place. There is NG tube in place. There is rectal tube in place. There is Ho catheter in place. LUNGS AND AIRWAYS: Extensive bilateral consolidations are compatible with multifocal pneumonia. in addition to above-mentioned tracheostomy the central airways are are patent. PLEURA: There are moderate left and a small right pleural effusions. HEART AND MEDIASTINUM: There is a 1.7 cm right thyroid nodule. No mediastinal, hilar or axillary lymphadenopathy. The heart is normal in size.. There is no pericardial effusion. HEPATOBILIARY: No focal hepatic lesions. No biliary ductal dilation. GALLBLADDER: No radio-opaque stones or sludge. No gallbladder wall thickening. SPLEEN: No splenomegaly. No focal splenic lesion. PANCREAS: No focal masses or ductal dilatation. ADRENALS: No adrenal nodules KIDNEYS/URETERS: Kidneys enhance symmetrically. No hydronephrosis. No cystic or solid mass lesions. No stones. GI TRACT: No abnormal distention, wall thickening, or evidence of bowel obstruction. PELVIC ORGANS/BLADDER: The bladder is decompressed surrounding Ho catheter. LYMPH NODES: No lymphadenopathy. VESSELS: No aortic aneurysm or dissection. PERITONEUM / RETROPERITONEUM: Small amount of free fluid in the abdomen. BONES: Unremarkable. SOFT TISSUES: There is diffuse anarsarca. IMPRESSION: 1. Extensive bilateral consolidations are compatible with multifocal pneumonia. 2. Small volume of fluid in the abdomen and pelvis, likely due to third spacing. Otherwise no acute finding in the abdomen or pelvis. Signed by: Chirag Polanco MD on 11/01/2019 6:59 PM
[2019-11-01] MEDS ORDERED: SODIUM CHLORIDE 0.9% 250ML 250 ML ONE (20:51)
--- NOTE | 2019-11-01 23:47 | NUR ---
One unit of PRBC given. No issues noted during transfusion
--- NOTE | 2019-11-01 23:58 | Progress Note ---
DATE: 11/01/2019 CONSULTANTS: 1. Dr. Lowry, payroll analyst. 2. Dr. Maguire, Infectious Disease. 3. Dr. Casas, Cardiology. 4. Dr. Rodríguez, Nephrology. SUBJECTIVE: The patient is continuing to wean off sedation, much more awake and alert, afebrile. PHYSICAL EXAMINATION: VITAL SIGNS: Temperature 99.0, pulse 87, respirations 33, blood pressure 146/72, and pulse ox is 98% on the vent. GENERAL: Alert and awake. HEENT: Normocephalic and atraumatic. Tracheostomy in place. LUNGS: With decreased breath sounds. CARDIOVASCULAR: Tachycardic . NEUROLOGIC: Alert and awake. Unable to evaluate orientation. LABORATORY DATA: WBC 14.08, hemoglobin 7.1, hematocrit 23.5, and platelet 214. Sodium 142, potassium 3.7, BUN 41 and creatinine 0.78, estimated GFR is greater than 60. IMPRESSION: 1. Acute respiratory failure due to COVID-19 pneumonia. Status post tracheostomy, on vent management per payroll analyst. Off antibiotics. 2. Leukocytosis. WBC is 14.08. We will continue to monitor. 3. Fauif-ir-nvwfndw anemia. Hemoglobin 7.1. 4. Hypokalemia, replaced. 5. Thrombocytopenia, resolved. 6. Anasarca. Improved with diuretics per Renal. 7. Tachycardia. Improving on beta-blockers per Cardiology. 8. Debility, up with physical therapy. 9. Deep vein thrombosis prophylaxis. Continue Lovenox subcu. PLAN: Continue current treatment, has been afebrile, physical therapy as tolerated, and vent management per Pulmonary. Dictated by SNEHAL Laguerre Yoletteching Nathen Aparicio MD MY/MODL /[id number]
[2019-11-02] VITALS (26 sets, daily range): BP systolic 133–158; BP diastolic 56–94
[2019-11-02] MEDS: PROPOFOL IV EMULSION 10MG/ML 100 ML IV PRN ×2 (01:31→21:50)
[2019-11-02 04:20] LABS: BASOPHILS # (AUTO) 0.1 (0.0-0.1); BASOPHILS % 0.6 % (0.0-1.0); EOSINOPHILS # (AUTO) 0.8 (0.0-0.4); EOSINOPHILS % 6.4 % (0.0-6.0); HEMATOCRIT 26.1 % (38.2-49.6); LYMPHOCYTES # (AUTO) 0.8 (1.0-3.2); LYMPHOCYTES % 6.9 % (18.0-39.1); MEAN CORPUSCULAR HEMOGLOBIN 27.4 pg (28-32); MEAN CORPUSCULAR HGB CONC 30.7 g/dL (31-35); MEAN CORPUSCULAR VOLUME 89.4 fL (81-99); MONOCYTES % 8.1 % (4.4-11.3); NEUTROPHILS # (AUTO) 9.5 (2.1-6.9); NEUTROPHILS % 77.1 % (38.7-80.0); PLATELET COUNT 244 x10e3/uL (140-360); RED BLOOD COUNT 2.92 x10e6/uL (4.3-5.7); RED CELL DISTRIBUTION WIDTH 14.6 % (11.7-14.4)
[2019-11-02] MEDS: DEXMEDETOMIDINE 200MCG/NS 50ML 50 ML IV PRN ×5 (04:25→21:00)
[2019-11-02 04:44] LABS: ALANINE AMINOTRANSFERASE 49 IU/L (0-55); ALBUMIN 3.5 g/dL (3.5-5.0); ALBUMIN/GLOBULIN RATIO 0.9 (0.8-2.0); ALKALINE PHOSPHATASE 115 IU/L (40-150); ANION GAP 16.6 mmol/L (8-16); BLOOD UREA NITROGEN 39 mg/dL (7-26); BUN/CREATININE RATIO 52 (6-25); CALCIUM 8.9 mg/dL (8.4-10.2); CARBON DIOXIDE 24 mmol/L (22-29); CHLORIDE 105 mmol/L (98-107); CREATININE, SERUM 0.75 mg/dL (0.72-1.25); EST GLOMERULAR FILTRATION RATE > 60 ML/MIN (60-); GLUCOSE 119 mg/dL (74-118); POTASSIUM 3.6 mmol/L (3.5-5.1); SODIUM 142 mmol/L (136-145)
[2019-11-02] MEDS: METOCLOPRAMIDE HCL 10 MG/2ML VIAL IV SCH ×3 (05:34→17:21)
[2019-11-02] MEDS: SUCRALFATE 1 GM/10 ML SUSP NG SCH ×3 (05:34→17:21)
[2019-11-02] MEDS: FAMOTIDINE 20 MG/2 ML VIAL IV SCH ×2 (08:11→21:26)
[2019-11-02] MEDS: MULTIVITAMINS/MINERALS TAB PO SCH (08:12)
[2019-11-02] MEDS: CHOLECALCIFEROL 1,000 UNIT TAB PO SCH (08:12)
[2019-11-02] MEDS: METOPROLOL TARTRATE 25 MG TAB PO SCH ×2 (08:12→21:30)
[2019-11-02] MEDS: BALSAM PERU/CASTOR OIL 60 GM OINT...G. TP SCH ×2 (08:12→21:30)
[2019-11-02] MEDS: ASCORBIC ACID 500 MG TAB PO SCH ×2 (08:12→21:30)
[2019-11-02] MEDS: POTASSIUM CHLORIDE 20MEQ/15ML UDC NG SCH (08:12)
[2019-11-02] MEDS: ZINC SULFATE 220 MG CAP PO SCH (08:12)
[2019-11-02] MEDS: ENOXAPARIN SOD INJ 40 MG/0.4 ML SYR SC SCH ×2 (08:12→21:24)
[2019-11-02] MEDS: FUROSEMIDE INJ 100 MG in SODIUM CHLORIDE 0.9% 100 ML 90 ML IV SCH (12:05)
[2019-11-02 12:24] LABS: ABG HCO3 28 mmol/L (22-26); ABG PCO2 39 mmHg (35-45); ABG PH 7.47 (7.35-7.45); ABG PO2 107 mmHg (80-105); ABG TCO2 29
--- NOTE | 2019-11-02 13:25 | Progress Note ---
DATE: SUBJECTIVE: The patient is down to fentanyl at 50 mcg and Versed at 0.5. He remains on Precedex. This morning, he was placed on a CPAP trial with a pressure support of 12 and CPAP of 5. He has been on this setting for 10 minutes and his respiratory rate is in the high 30s. He appears more comfortable on the pressure support and CPAP than yesterday. PHYSICAL EXAMINATION: VITAL SIGNS: Blood pressure is 140/65, saturation is 98% and the pulse is 75. HEENT: Shows no facial swelling or erythema. LYMPHATIC: Shows no submandibular, cervical, or supraclavicular adenopathy. CARDIAC: Reveals regular rate and rhythm with normal S1 and S2. LUNGS: Auscultation of lungs reveals rhonchorous breath sounds bilaterally. There is no wheezing. ABDOMEN: Soft and nontender. There is no rebound or guarding. EXTREMITIES: Shows no leg edema or calf tenderness. There is no cyanosis or clubbing. SKIN: Shows no rashes. NEUROLOGICAL: Shows the patient to be diffusely weak, but is interacting appropriately. LABORATORY DATA: White blood cell count is 12.2 and hemoglobin is 8. The platelet count is 244. The BUN to creatinine ratio is 34 to 0.75 and the other electrolytes are within normal limits. IMPRESSION: 1. Acute respiratory failure that is improving. 2. Viral pneumonia and COVID-19 infection. 3. Splenomegaly. 4. Myopathy of critical illness. 5. Anemia requiring packed red blood cells. PLAN: 1. Continue daily trials with pressure support and CPAP. 2. Wean off Versed and fentanyl. 3. Continue Precedex as needed. 4. Continue enteral feedings. Maximilian Lowry MD [facility]/MODL /[id number]
--- NOTE | 2019-11-02 14:41 | Progress Note ---
DATE: SUBJECTIVE: The patient is seen and evaluated. Available labs and notes reviewed. Discussed with the nurse. Overall, clinically comfortable in bed, getting weaned off sedation, currently on pressure control of 40% with a PEEP of 5, rate of 20, with trach and vent. REVIEW OF SYSTEMS: Unable to obtain review of systems, secondary to the patient's medical condition. OBJECTIVE: VITAL SIGNS: Temperature is 98.4, pulse 75, respirations 27, and blood pressure 140/65. GENERAL: Comfortable in bed, sedated. No pressors. Trach and vent. CV: S1, S2. CHEST: Equal expansion, decreased breath sounds. ABDOMEN: Soft, nontender. Positive bowel sounds. HEENT: Moist trach. No JVD. EXTREMITIES: No edema. No rash. MEDICATIONS: Reviewed, from infectious Disease point of view, the patient is on Lovenox 40 mg subcu twice a day, zinc sulfate, vitamin D3, vitamin C, Lasix 100 mg IV daily. The patient is status post Jose David nebulizer. LABORATORY STUDIES: White count of 12.26, improved from 14.08, hemoglobin 8, and platelet 244. Sodium 142, potassium 3.6, creatinine 0.75, AST 34, ALT 49, ALP 115, albumin 7.5. Clostridium difficile negative on 10/10/2019. No new serology available. MICROBIOLOGY: Sputum culture on 10/28/2019, shows Pseudomonas aeruginosa and methicillin-resistant Staphylococcus aureus. Bronchial wash for fungal culture from 10/28/2019, is pending. Blood culture 10/28/2019, negative so far. RADIOLOGY STUDIES: No new radiology studies. However, CT of the chest, abdomen, and pelvis on 11/01/2019, showed extensive bilateral consolidation are compatible with multifocal pneumonia with small volume of fluid in the abdomen and pelvis likely due to third spacing, otherwise no acute finding in abdomen or pelvis. ASSESSMENT AND PLAN: 1. COVID-19 pneumonitis. 2. Respiratory failure. 3. Splenomegaly. 4. Debility. 5. Methicillin-resistant Staphylococcus aureus colonization. The patient getting weaned off sedation. Continue with vent support and feeding tube, continue with the trach care, elevate the back of the bed for prevention or decrease chance of aspiration, continue monitor the patient clinically, and follow with the labs. Dictated by Chirag Moreno PA-C (Al) MD NEEL Taylor/REYESL /[id number] cc: Chirag Moreno PA-C (Al)
--- NOTE | 2019-11-02 16:26 | NUR ---
HEMATOLOGY/ONCOLOGY PROGRESS NOTE: HPI: Patient with trach in place. Discussed with RN, remains on vent though weaning vent settings. No signs of bleeding. Plan for 1 unit PRBC today. ROS: 14 point ROS unable to obtain secondary to contact precautions. PHYSICAL EXAM: Vitals: Reviewed as per EMR. PE not performed due to COVID-19 contact precautions. LABORATORY/RADIOLOGY DATA: Reviewed per EMR. ASSESSMENT AND PLAN: Mr. Miles is a 44-year-old male with past medical history of hypertension who was admitted on 08/24/2019 due to cough and fever. Patient was found to be positive for COVID-19. Intubated due to worsening respiratory status. Patient has been treated with full-dose Lovenox since 09/08/19. Has required PRBC previously during admission. Patient now with dropping platelet count and recurrent anemia requiring PRBC transfusion. Hematology/Oncology has been consulted to assist with the management. 1. Thrombocytopenia: Likely secondary to consumption for infection. DIC panel showed no coagulopathy, elevated fibrinogen, does not appear DIC. Acute hepatitis panel negative. Abdominal US without evidence of liver cirrhosis or splenomegaly. HIT panel negative on 09/15/2019. Repeat DIC panel does not appear DIC with elevated fibrinogen level. THROMBOCYTOPENIA RESOLVED, now with mild thrombocytosis which may be reactive. Continue on Lovenox 40mg sq BID. 2. Anemia: Anemia panel appears mixed picture AOCD + RODRIGUEZ with noted low B12 level. Macrocytosis probably combination of B12 deficiency and possibly also related to bone marrow suppression from viral infection. Ferritin mildly elevated, likely as acute phase reactant. Repeat ferritin significantly more elevated hold IV iron. Reticulocyte count and LDH mildly elevated, haptoglobin elevated, does not appear hemolysis. S/p multiple PRBC transfusions, last on 11/01/2019. Repeat ferritin level 10/25 still markedly elevated, will continue to hold IV iron. USG and CT C/A/P reveal no bleed.H and H improved post PRBC transfusion.Plan to monitor. 3. COVID-19 PNA: In the ICU, S/P tracheostomy placement, weaning off vent as tolerated, sedated. Undergoing intermittent proning. Pneumocystis carinii smear negative. Sputum culture from 10/11 with pseudomonas, fungal cultures pendi ng. On IV antibiotics, leukocytosis stable. blood culture 10/28/19 with pseudomonas and MRSA. Pulmonary and infectious disease on board. 4. Melena/ileus/abd distention: On Pepcid IV q12h. Improved. Abdominal US with some billiary sludge and splenomegaly. On TFs with nutrition/GI on board. 5. Fluid overload/oligoanuria: On Lasix, monitor UOP per Nephrology on board. 6. DVT proph: Continue on Lovenox 40mg sq BID. 7. GOC: Patient is s/p trach placement. Disposition per primary team. Thank you for the consult. I will be available. Please call with questions.
[2019-11-02] MEDS: FENTANYL 2000MCG/NS 250 250 ML IV PRN (17:37)
[2019-11-02] MEDS: MIDAZOLAM HCL 5MG/ML 10ML VIAL 100 ML IV PRN (19:05)
--- NOTE | 2019-11-02 21:32 | Progress Note ---
DATE: 11/02/2019 Nephrology Progress Note SUBJECTIVE: The patient on a CPAP trial. Being followed up for fluid overload and hypokalemia in the aftermath of COVID-19 pneumonia. PHYSICAL EXAMINATION: VITAL SIGNS: Stable. Blood pressure 140/65, saturation 98%, pulse 75 per minute. HEENT: No facial swelling or erythema. RESPIRATORY: Bilateral air entry to mechanical breaths. No wheezing. ABDOMEN: Soft and nondistended. CARDIAC: Regular rate and rhythm with normal S1, S2. EXTREMITIES: Without pitting edema or cyanosis. LABORATORY DATA: Hemoglobin is 8, white count 12.2, normal platelet count. BUN and creatinine remain normal. Potassium 3.6, sodium 142, and bicarb 24. IMPRESSION: 1. Hypokalemia secondary to IV Lasix diuresis, being replaced as needed. Stable today. 2. Fluid overload, responding to IV Lasix infusion. 3. Metabolic alkalosis, appears resolved. 4. Blood pressure, stable. Marcos Marsh MD [facility]/MODL /[id number]
--- NOTE | 2019-11-02 22:52 | Progress Note ---
DATE: 11/02/2019 Cardiology Progress Note. SUBJECTIVE: No complaints. Trach in place. OBJECTIVE: VITAL SIGNS: Temperature 98.8, heart rate 91, blood pressure 146/64, respiratory rate 27, O2 saturation 99%. GENERAL: No acute distress. Alert. Chronically ill-appearing. NECK: Trach in place. CHEST: Decreased breath sounds. CARDIOVASCULAR: Regular rate and rhythm. Normal S1, S2. ABDOMEN: Soft. Bowel sounds positive. EXTREMITIES: Trace edema. CARDIOVASCULAR MEDICATIONS: Reviewed. Metoprolol tartrate 25 mg every 12 hours, Lovenox 40 mg q.12 hours, IV Lasix 2.5 mg/hour, we will transition to 40 IV daily starting tomorrow and KCl 40 mEq daily. STUDIES: Reviewed sodium 142, potassium 3.6, chloride 105, bicarbonate 24, BUN 39, creatinine 0.7, glucose 119. White blood cells 12, hemoglobin 8, platelets 244,000. INR 1.2. AST 34, ALT 41. ASSESSMENT AND PLAN: A 44-year-old man presents with COVID-19 infection, community-acquired pneumonia, acute respiratory failure, status post prolonged intubation, now extubated with trach, anemia, hypertension, and acute on chronic diastolic heart failure. RECOMMENDATIONS: Continue current cardiovascular medications with the following change, DC IV Lasix drip and initiate 40 IV daily. MD OPAL Del Valle/ANGELA /[id number]
[2019-11-03] VITALS (23 sets, daily range): BP systolic 132–187; BP diastolic 56–90
[2019-11-03] MEDS: SUCRALFATE 1 GM/10 ML SUSP NG SCH ×4 (00:40→18:00)
[2019-11-03] MEDS: METOCLOPRAMIDE HCL 10 MG/2ML VIAL IV SCH ×4 (00:40→18:00)
[2019-11-03] MEDS: DEXMEDETOMIDINE 200MCG/NS 50ML 50 ML IV PRN ×4 (01:00→16:30)
[2019-11-03] MEDS: PROPOFOL IV EMULSION 10MG/ML 100 ML IV PRN ×4 (03:01→18:04)
[2019-11-03 05:28] LABS: ALANINE AMINOTRANSFERASE 56 IU/L (0-55); ALBUMIN 3.4 g/dL (3.5-5.0); ALBUMIN/GLOBULIN RATIO 0.9 (0.8-2.0); ALKALINE PHOSPHATASE 119 IU/L (40-150); ANION GAP 17.6 mmol/L (8-16); BLOOD UREA NITROGEN 33 mg/dL (7-26); BUN/CREATININE RATIO 48 (6-25); CALCIUM 8.7 mg/dL (8.4-10.2); CARBON DIOXIDE 22 mmol/L (22-29); CHLORIDE 106 mmol/L (98-107); CREATININE, SERUM 0.69 mg/dL (0.72-1.25); EST GLOMERULAR FILTRATION RATE > 60 ML/MIN (60-); GLUCOSE 116 mg/dL (74-118); POTASSIUM 3.6 mmol/L (3.5-5.1); SODIUM 142 mmol/L (136-145)
[2019-11-03 05:42] LABS: BASOPHILS # (AUTO) 0.1 (0.0-0.1); BASOPHILS % 0.7 % (0.0-1.0); EOSINOPHILS % 8.9 % (0.0-6.0); HEMATOCRIT 26.1 % (38.2-49.6); LYMPHOCYTES # (AUTO) 0.9 (1.0-3.2); MEAN CORPUSCULAR HGB CONC 30.7 g/dL (31-35); MEAN CORPUSCULAR VOLUME 91.3 fL (81-99); MONOCYTES # (AUTO) 0.9 (0.2-0.8); MONOCYTES % 8.1 % (4.4-11.3); NEUTROPHILS # (AUTO) 7.9 (2.1-6.9); NEUTROPHILS % 73.7 % (38.7-80.0); PLATELET COUNT 277 x10e3/uL (140-360); RED BLOOD COUNT 2.86 x10e6/uL (4.3-5.7); RED CELL DISTRIBUTION WIDTH 14.6 % (11.7-14.4)
--- NOTE | 2019-11-03 06:39 | Diagnostic Imaging Report ---
EXAMINATION: CHEST SINGLE (PORTABLE) INDICATION: ^viral pneumonia ^[id number] ^[id number] COMPARISON: 11/01/2019 FINDINGS: AP view TUBES and LINES: Stable tracheostomy tube and enteric tube. LUNGS: Low lung volumes. Diffuse bilateral airspace opacities. PLEURA: No pneumothorax. Bilateral small pleural effusions, left greater right. HEART AND MEDIASTINUM: The cardiomediastinal silhouette is enlarged and partially obscured. BONES AND SOFT TISSUES: No acute osseous lesion. Soft tissues are unremarkable. UPPER ABDOMEN: No free air under the diaphragm. IMPRESSION: No significant interval change from prior exam. Signed by: Dr. Eldon Sanchez MD on 11/03/2019 6:36 AM
[2019-11-03] MEDS: FUROSEMIDE INJ 10 MG/ML 4 ML VIAL IV SCH (08:09)
[2019-11-03] MEDS: ENOXAPARIN SOD INJ 40 MG/0.4 ML SYR SC SCH ×2 (08:10→21:47)
[2019-11-03] MEDS: METOPROLOL TARTRATE 25 MG TAB PO SCH ×2 (08:10→21:47)
[2019-11-03] MEDS: CHOLECALCIFEROL 1,000 UNIT TAB PO SCH (08:10)
[2019-11-03] MEDS: POTASSIUM CHLORIDE 20MEQ/15ML UDC NG SCH (08:10)
[2019-11-03] MEDS: FAMOTIDINE 20 MG/2 ML VIAL IV SCH (08:10)
[2019-11-03] MEDS: MULTIVITAMINS/MINERALS TAB PO SCH (08:10)
[2019-11-03] MEDS: BALSAM PERU/CASTOR OIL 60 GM OINT...G. TP SCH ×2 (08:10→21:47)
[2019-11-03] MEDS: ASCORBIC ACID 500 MG TAB PO SCH ×2 (08:10→21:47)
[2019-11-03] MEDS: ZINC SULFATE 220 MG CAP PO SCH (08:10)
--- NOTE | 2019-11-03 09:30 | NUR ---
CPAP TRIAL DONE TODAY PT WAS ON FOR 40MIN BECAME AGITATED AND TACHYPNEIC RR IN THE 50-LOW 60'S. PT REMINDED THAT HE IS IN THE HOSPITAL BECOMES AGITATED AT TIMES SAYS HE WANTS TO GET UP AND LEAVE REORIENTED TO HOSPITAL AND STATUS
--- NOTE | 2019-11-03 10:44 | Progress Note ---
DATE: SUBJECTIVE: The patient is placed on a spontaneous breathing trial with a pressure support of 12 and CPAP of 5 for 30-40 minutes a day. He became tachypneic and had to be switched back for support. He has low-grade temperature of 99.9. PHYSICAL EXAMINATION: VITAL SIGNS: Blood pressure is 151/72, saturation is 100%. He is now on pressure control with 40% FiO2 and 5 of PEEP. Pressure above PEEP is set at 20. His rate is set at 20, but he is breathing in the low 30s. HEENT: There is a tracheostomy site. The site looks clean. There is no drainage. CARDIAC: Reveals regular rate and rhythm with normal S1, S2. LUNGS: Auscultation of lungs shows decreased breath sounds at the bases. ABDOMEN: Soft. There is some mild distention. There is no rebound or guarding. EXTREMITIES: There is no leg edema. LABORATORY DATA: PEI-bp-kdmzopkuuq ratio is 33 to 0.69. Other electrolytes are within normal limits. White blood cell count is 10.7, hemoglobin is 8, the platelet count is 277. RADIOGRAPHIC DATA: X-ray shows bilateral infiltrates. IMPRESSION: 1. Acute respiratory failure. 2. Viral pneumonia and COVID-19 infection. 3. Splenomegaly. 4. Myopathy of critical illness. 5. Anemia, unspecified. PLAN: 1. Continue daily trials of pressure support and CPAP. 2. Continue Precedex as needed. 3. Enteral feeding. 4. Physical therapy. 5. Daily Lasix. 6. Continue DVT prophylaxis. Maximilian Lowry MD [facility]/REYESL /[id number]
--- NOTE | 2019-11-03 12:30 | Progress Note ---
DATE: 11/03/2019 CONSULTANTS: 1. Dr. Lowry, display fabricator. 2. Dr. Maguire, Infectious Disease. 3. Dr. Casas, Cardiology. 4. Dr. Rodríguez, Nephrology. SUBJECTIVE: The patient is resting in bed, seems a little anxious today, denies any pain, chest pain, or shortness of breath. PHYSICAL EXAMINATION: VITAL SIGNS: Temperature 99.5, pulse is 92, respirations 41, blood pressure 157/73, pulse ox is 100% on the vent. GENERAL: Alert and awake. HEENT: Normocephalic, atraumatic. Tracheostomy in place. LUNGS: With decreased breath sounds. CARDIOVASCULAR: Regular rate and rhythm. NEUROLOGIC: Alert and awake. PSYCH: Irritable. LABORATORY DATA: WBC 10.71, hemoglobin 8.0, hematocrit 26.1, platelets 277. Sodium 142, potassium 3.6, BUN is 33, creatinine 0.69, estimated GFR is greater than 60. Chest x-ray, no significant interval change from prior exam. IMPRESSION: 1. Acute respiratory failure due to coronavirus disease-2019 pneumonia. Status post tracheostomy, continue vent management. Off antibiotics. 2. Leukocytosis. Resolved. 3. Acute on chronic anemia. Hemoglobin is stable. We will continue to monitor. 4. Hypokalemia. Resolved. 5. Thrombocytopenia. Resolved. 6. Tachycardia. Resolved with beta blockers per Cardiology. 7. Generalized edema/anasarca. Diuretics per Renal. 8. Debility. Continue physical therapy. 9. Deep vein thrombosis prophylaxis. Continue Lovenox. PLAN: Continue weaning off sedation and vent per display fabricator and physical therapy as tolerated. Dictated by SNEHAL Laguerre Taylor Aparicio MD [facility]/MODL /[id number]
--- NOTE | 2019-11-03 15:36 | NUR ---
INFECTIOUS DISEASE PROGRESS NOTE DR. NUNES SUBJECTIVE: The patient is seen and evaluated. Available labs and notes reviewed. Discussed with the nurse. Overall, clinically comfortable in bed, getting weaned off sedation, currently on pressure control of 40% with a PEEP of 5, rate of 20, with trach and vent. REVIEW OF SYSTEMS: Unable to obtain review of systems, secondary to the patient's medical condition. PHYSICAL EXAM VITAL SIGNS: reviewed GENERAL: Comfortable in bed, sedated. No pressors. Trach and vent. CV: S1, S2, without S3, s4 CHEST: Equal expansion, decreased breath sounds. ABDOMEN: Soft, nontender. Positive bowel sounds. HEENT: Moist trach. No JVD. EXTREMITIES: No edema. No rash. MEDICATIONS: Reviewed, from infectious Disease point of view, the patient is on Lovenox 40 mg subcu twice a day, zinc sulfate, vitamin D3, vitamin C, Lasix 100 mg IV daily. The patient is status post Jose David nebulizer. LABORATORY STUDIES: reviewed MICROBIOLOGY: Sputum culture on 10/28/2019, shows Pseudomonas aeruginosa and methicillin-resistant Staphylococcus aureus. Bronchial wash for fungal culture from 10/28/2019, is pending. Blood culture 10/28/2019, negative so far. RADIOLOGY STUDIES: No new radiology studies. However, CT of the chest, abdomen, and pelvis on 11/01/2019, showed extensive bilateral consolidation are compatible with multifocal pneumonia with small volume of fluid in the abdomen and pelvis likely due to third spacing, otherwise no acute finding in abdomen or pelvis. ASSESSMENT AND PLAN: 1. COVID-19 pneumonitis. 2. Respiratory failure. 3. Splenomegaly. 4. Debility. 5. Methicillin-resistant Staphylococcus aureus colonization. PS and CPAP trials, off Precedex Continue the same from ID standpoint Monitor off ABT Supportive care Britni Matute MSN, DESIGNER/WRITER, AGACNP-BC Dr. Nunes
--- NOTE | 2019-11-03 18:22 | NUR ---
HPI: Patient with trach in place. Discussed with RN, remains on vent though weaning vent settings. ROS: 14 point ROS unable to obtain secondary to contact precautions. PHYSICAL EXAM: Vitals: Reviewed as per EMR. PE not performed due to COVID-19 contact precautions. LABORATORY/RADIOLOGY DATA: Reviewed per EMR. ASSESSMENT AND PLAN: Mr. Miles is a 44-year-old male with past medical history of hypertension who was admitted on 08/24/2019 due to cough and fever. Patient was found to be positive for COVID-19. Intubated due to worsening respiratory status. Patient has been treated with full-dose Lovenox since 09/08/19. Has required PRBC previously during admission. Patient now with dropping platelet count and recurrent anemia requiring PRBC transfusion. Hematology/Oncology has been consulted to assist with the management. 1. Thrombocytopenia: Likely secondary to consumption for infection. DIC panel showed no coagulopathy, elevated fibrinogen, does not appear DIC. Acute hepatitis panel negative. Abdominal US without evidence of liver cirrhosis or splenomegaly. HIT panel negative on 09/15/2019. Repeat DIC panel does not appear DIC with elevated fibrinogen level. THROMBOCYTOPENIA RESOLVED. Continue on Lovenox 40mg sq BID. Patient can be transitioned to full dose Lovenox once stable from Anemia standpoint and no longer transfusion dependednt. 2. Anemia: Anemia panel appears mixed picture AOCD + RODRIGUEZ with noted low B12 level. Macrocytosis probably combination of B12 deficiency and possibly also related to bone marrow suppression from viral infection. Ferritin mildly elevated, likely as acute phase reactant. Repeat ferritin significantly more elevated hold IV iron. Reticulocyte count and LDH mildly elevated, haptoglobin elevated, does not appear hemolysis. S/p multiple PRBC transfusions, last on 11/01/2019. Repeat ferritin level 10/25 still markedly elevated, will continue to hold IV iron. USG and CT C/A/P reveal no bleed.H and H improved post PRBC transfusion.Plan to monitor. 3. COVID-19 PNA: In the ICU, S/P tracheostomy placement, weaning off vent as tolerated, sedated. Undergoing intermittent proning. Pneumocystis carinii smear negative. Sputum culture from 10/11 with pseudomonas, fungal cultures pendi ng. blood culture 10/28/19 with pseudomonas and MRSA. Pulmonary and infectious disease on board. Currently being monitored off antibiotics. 4. Melena/ileus/abd distention: On Pepcid IV q12h. Improved. Abdominal US with some billiary sludge and splenomegaly. On TFs with nutrition/GI on board. 5. Fluid overload/oligoanuria: On Lasix, monitor UOP per Nephrology on board. 6. DVT proph: Continue on Lovenox 40mg sq BID. 7. GOC: Patient is s/p trach placement. Disposition per primary team.
--- NOTE | 2019-11-03 19:52 | Progress Note ---
DATE: 11/02/2019 CONSULTANTS: 1. Dr. Lowry, studio assistant. 2. Dr. Maguire, Infectious Disease. 3. Dr. Casas, Cardiology. 4. Dr. Rodríguez, Nephrology. SUBJECTIVE: The patient is more alert and oriented today, asked where he will go from here, still weaning off sedation and vent. He denies any abdominal or chest pain. PHYSICAL EXAMINATION: VITAL SIGNS: Temperature 98.8, pulse 84, respirations 27, blood pressure 139/73, pulse ox is 99%, on the . GENERAL: Alert and awake. HEENT: Normocephalic, atraumatic. Tracheostomy in place. LUNGS: Decreased breath sounds. CARDIOVASCULAR: Regular rate and rhythm. NEUROLOGIC: Alert, awake, and oriented x1-2. PSYCH: Calm. MUSCULOSKELETAL: No edema in the lower extremities. LABORATORY DATA: WBC 12.29, hemoglobin 8.0, hematocrit 26.1, platelets 244,000. Sodium 142, potassium 3.6, CO2 24, BUN is 39, creatinine 0.75, estimated GFR is greater than 60. AST 34, ALT 49, alkaline phosphate 115. CT chest from yesterday shows extensive bilateral consolidations are compatible with multifocal pneumonia, small volume fluid in the abdomen and pelvis likely due to 3rd spacing. Otherwise, no acute finding in the abdomen. IMPRESSION: 1. Acute respiratory failure due to COVID-19 pneumonia, status post tracheostomy. Vent management per Pulmonary. Off antibiotics. CT chest showed multifocal pneumonia. 2. Leukocytosis. WBC is improving, afebrile, we will continue to monitor off antibiotics per ID. 3. Acute on chronic anemia. Hemoglobin is 8.0. 4. Hypokalemia. Replace. 5. Anasarca improved with diuretics per Renal. 6. Tachycardia. Improved with beta blockers per Cardiology. 7. Debility. Continue PT as tolerated. 8. Deep vein thrombosis prophylaxis. Continue Lovenox subcu. PLAN: Continue current treatment, continue weaning off sedation and vent. Physical therapy as tolerated. Dictated by SNEHAL Laguerre Yoletteching Nathen Aparicio MD [facility]/MOD[facility] /[id number]
--- NOTE | 2019-11-03 20:02 | Progress Note ---
DATE: 11/03/2019 RENAL PROGRESS NOTE: SUBJECTIVE: The patient is followed for hypokalemia, fluid overload, and COVID-19 pneumonia. The patient remains on the vent via trach, the patient is stable, FiO2 is 40%. The patient is nonoliguric, has been off the Lasix drip now and just scheduled daily Lasix. OBJECTIVE: VITAL SIGNS: Noted and are stable. LUNGS: Rhonchi bilaterally. CARDIOVASCULAR: S1, S2. No rub. ABDOMEN: Soft, nontender. EXTREMITIES: No edema. LABORATORY DATA: Have been reviewed. Potassium 3.6, BUN 33, creatinine 0.7, and bicarb is 22. IMPRESSION AND PLAN: 1. Azotemia, has resolved with the patient's Lasix drip being stopped. We will continue to monitor. 2. Hypokalemia. Continue potassium once a day 40 mEq via G-tube. 3. Fluid overload. Continue Lasix 40 mg daily. 4. COVID-19 pneumonia, plan would be as per Pulmonary and Critical Care. Alex Roger MD [facility] /[id number]
--- NOTE | 2019-11-03 20:37 | Progress Note ---
DATE: 11/03/2019 Cardiology Progress Note SUBJECTIVE: No complaints. OBJECTIVE: VITAL SIGNS: Temperature 99.6, heart rate 91, blood pressure 156/70, respiratory rate 18. GENERAL: In no acute distress, alert. NECK: Trachea in midline. LUNGS: Clear to auscultation. CARDIOVASCULAR: Regular rate and rhythm. Normal S1, S2. ABDOMEN: Soft. Bowel sounds present. CARDIOVASCULAR MEDICATIONS: Lovenox 40 mg subcu q.12 hours, metoprolol tartrate q.12 hours. STUDIES: Reviewed. Potassium 3.8, bicarbonate 22, creatinine 0.6, glucose 116, white blood cells 10, hemoglobin 8, platelets 177. INR 1.2. ASSESSMENT AND PLAN: A 44-year-old man presents with anemia, acute on chronic diastolic heart failure, hypertension, diarrhea. RECOMMENDATIONS: Continue current cardiovascular medications. MD OPAL Del Valle/ANGELA /[id number] MTDD
[2019-11-04] VITALS (22 sets, daily range): BP systolic 110–135; BP diastolic 72–86
[2019-11-04 04:31] LABS: BASOPHILS % 0.4 % (0.0-1.0); EOSINOPHILS # (AUTO) 1.2 (0.0-0.4); EOSINOPHILS % 11.4 % (0.0-6.0); HEMOGLOBIN 7.9 g/dL (14.0-18.0); LYMPHOCYTES # (AUTO) 0.8 (1.0-3.2); LYMPHOCYTES % 7.1 % (18.0-39.1); MEAN CORPUSCULAR HEMOGLOBIN 27.4 pg (28-32); MEAN CORPUSCULAR HGB CONC 30.4 g/dL (31-35); MEAN CORPUSCULAR VOLUME 90.3 fL (81-99); MONOCYTES # (AUTO) 0.8 (0.2-0.8); MONOCYTES % 7.3 % (4.4-11.3); NEUTROPHILS # (AUTO) 7.8 (2.1-6.9); PLATELET COUNT 260 x10e3/uL (140-360); RED BLOOD COUNT 2.88 x10e6/uL (4.3-5.7); RED CELL DISTRIBUTION WIDTH 14.5 % (11.7-14.4)
[2019-11-04 04:53] LABS: ALANINE AMINOTRANSFERASE 43 IU/L (0-55); ALBUMIN 3.3 g/dL (3.5-5.0); ALBUMIN/GLOBULIN RATIO 0.9 (0.8-2.0); ALKALINE PHOSPHATASE 101 IU/L (40-150); ANION GAP 16.6 mmol/L (8-16); BLOOD UREA NITROGEN 27 mg/dL (7-26); BUN/CREATININE RATIO 42 (6-25); CALCIUM 8.5 mg/dL (8.4-10.2); CARBON DIOXIDE 23 mmol/L (22-29); CHLORIDE 107 mmol/L (98-107); CREATININE, SERUM 0.64 mg/dL (0.72-1.25); EST GLOMERULAR FILTRATION RATE > 60 ML/MIN (60-); GLUCOSE 110 mg/dL (74-118); POTASSIUM 3.6 mmol/L (3.5-5.1); SODIUM 143 mmol/L (136-145)
[2019-11-04 05:11] LABS: MAGNESIUM 2.1 MG/DL (1.3-2.1); PHOSPHORUS 4.4 MG/DL (2.3-4.7)
[2019-11-04] MEDS: METOPROLOL TARTRATE 25 MG TAB PO SCH ×2 (08:13→21:32)
[2019-11-04] MEDS: ASCORBIC ACID 500 MG TAB PO SCH ×2 (08:13→21:33)
[2019-11-04] MEDS: FUROSEMIDE INJ 10 MG/ML 4 ML VIAL IV SCH (08:13)
[2019-11-04] MEDS: ZINC SULFATE 220 MG CAP PO SCH (08:13)
[2019-11-04] MEDS: POTASSIUM CHLORIDE 20MEQ/15ML UDC NG SCH (08:13)
[2019-11-04] MEDS: CHOLECALCIFEROL 1,000 UNIT TAB PO SCH (08:13)
[2019-11-04] MEDS: ENOXAPARIN SOD INJ 40 MG/0.4 ML SYR SC SCH ×2 (08:13→21:33)
[2019-11-04] MEDS: MULTIVITAMINS/MINERALS TAB PO SCH (08:13)
[2019-11-04] MEDS: BALSAM PERU/CASTOR OIL 60 GM OINT...G. TP SCH ×2 (08:14→21:33)
[2019-11-04 09:12] LABS: ABG HCO3 29 mmol/L (22-26); ABG PCO2 47 mmHg (35-45); ABG PO2 93 mmHg (80-105); ABG TCO2 30
--- NOTE | 2019-11-04 10:09 | Progress Note ---
DATE: 11/04/2019 Cardiology Progress Note. SUBJECTIVE: No complaints. OBJECTIVE: VITAL SIGNS: Temperature 98.3, heart rate 88, respiratory rate 30, blood pressure 122/86. GENERAL: No acute distress and alert. Trach in place. CHEST: Clear to auscultation. CARDIOVASCULAR: Regular rate and rhythm. Normal S1, S2. ABDOMEN: Soft. Bowel sounds positive. EXTREMITIES: No edema, warm extremities. : Rectal tube in place. CARDIOVASCULAR MEDICATIONS: Reviewed: 1. Metoprolol 25 mg every 12 hours. 2. Lovenox 40 mg every 12 hours. 3. Furosemide 40 mg daily. STUDIES: Reviewed, white blood cells 10, hemoglobin 7.9, platelets 260. Sodium 143, potassium 3.6, chloride 107, bicarbonate 23, BUN 67, creatinine 0.6, and glucose 110. ASSESSMENT/PLAN: A 44-year-old man with COVID-19 infection common acquired pneumonia, respiratory failure status post trach, anemia, hypertension, acute on chronic diastolic heart failure. RECOMMENDATIONS: Continue current cardiovascular medications. MD OPAL Del Valle/ANGELA /[id number]
[2019-11-04] MEDS: DEXMEDETOMIDINE 200MCG/NS 50ML 50 ML IV PRN ×2 (10:36→16:05)
--- NOTE | 2019-11-04 10:38 | Progress Note ---
DATE: 11/04/2019 Renal progress note SUBJECTIVE: Followed for hypokalemia and fluid overload. The patient also has COVID-19 pneumonia. The patient remains in ICU on vent via trach. Overall clinical status has improved significantly. Potassium is normalized to 3.6. The patient's FiO2 is at 40%. OBJECTIVE: VITAL SIGNS: Blood pressure is 122/86, 88 pulse, afebrile. LUNGS: Rales bilaterally. CARDIOVASCULAR: S1, S2. No rub. ABDOMEN: Soft. Positive bowel sounds. EXTREMITIES: No edema. LABORATORY DATA: Potassium 3.6, BUN is 27, creatinine 0.6, phosphorus 4.4, and magnesium 2.1. IMPRESSION AND PLAN: 1. Hypokalemia. Continue current potassium via G-tube. 2. Hypertension. Blood pressure is controlled. 3. Fluid overload, on daily Lasix, holding study. 4. Coronavirus disease-19 pneumonia. Plan per Critical Care. Alex Roger MD [facility]/MODL /[id number]
[2019-11-04] MEDS: PROPOFOL IV EMULSION 10MG/ML 100 ML IV PRN ×2 (11:35→16:12)
--- NOTE | 2019-11-04 11:44 | Progress Note ---
DATE: SUBJECTIVE: The patient tolerated spontaneous breathing trial for 40 minutes yesterday. He is on pressure support of 12 and CPAP of 5 again this morning. PHYSICAL EXAMINATION: VITAL SIGNS: The blood pressure is 129/77 and saturation is 99%. The pulse is 90. The respiratory rate is in the mid 30s. HEENT: Shows no facial swelling or erythema. The tracheostomy site is clean. There is no drainage. CARDIAC: Reveals regular rate and rhythm with normal S1 and S2. LUNGS: Auscultation of lungs reveals crackles at the bases. There is no wheezing. ABDOMEN: Soft and nontender. There is no rebound or guarding. EXTREMITIES: Shows no leg edema or calf tenderness. There is no cyanosis or clubbing. SKIN: Shows no rashes. LABORATORY DATA: White blood cell count is 10.6 and hemoglobin is 7.9, platelet count is 260. BUN to creatinine ratio is 27 to 0.64 and the other electrolytes are within normal limits. IMPRESSION: 1. Acute respiratory failure. 2. Viral pneumonia and COVID-19 infection. 3. Splenomegaly. 4. Myopathy of critical illness. 5. Anemia. PLAN: 1. Continue CPAP trial with pressure support. 2. Continue Precedex. 3. Enteral feedings. 4. Physical therapy. 5. Speech therapy to evaluate the patient. Maximilian Lowry MD [facility]/MODL /[id number]
--- NOTE | 2019-11-04 12:46 | NUR ---
ST Note: Order for bedside swallow eval noted. Per MD progress notes, CPAP trials continue today. Will defer swallow eval until pt can tolerate trach collar trials.
--- NOTE | 2019-11-04 13:38 | NUR ---
Spoke to Dr. Lowry regarding plan. He states pt not ready for LTAC yet.
--- NOTE | 2019-11-04 16:41 | Progress Note ---
DATE: 11/04/2019 CONSULTANTS: 1. Dr. Lowry, dental detail representative. 2. Dr. Maguire, Infectious Disease. 3. Dr. Casas, Cardiology. 4. Dr. Rodríguez, Nephrology. SUBJECTIVE: No further complaints. No fever, chills, nausea, or vomiting. He denies any chest pain. PHYSICAL EXAMINATION: VITAL SIGNS: Temperature 99.0, pulse is 93, respirations 37, blood pressure 137/83, and pulse ox is 100% on the vent. GENERAL: No acute distress. HEENT: Normocephalic, atraumatic. Tracheostomy in place. LUNGS: With decreased breath sounds. CARDIOVASCULAR: Regular rate and rhythm. NEUROLOGIC: Alert and awake. PSYCH: Irritable. LABORATORY DATA: WBC 10.63, hemoglobin 7.9, hematocrit 26.0, and platelets 260. Sodium 143, potassium 3.6, BUN 27, creatinine 0.64, AST 19, and ALT 43. IMPRESSION: 1. Acute respiratory failure due to coronavirus disease-19 pneumonia. Status post tracheostomy, continue weaning of vent. Off antibiotics. 2. Leukocytosis. Resolved. 3. Acute on chronic anemia. Hemoglobin is stable. 4. Hypokalemia. Replaced. 5. Thrombocytopenia. Resolved. 6. Tachycardia. Resolved. Continue beta-blockers per Cardiology. 7. Generalized edema, anasarca. Diuretics per Renal. 8. Debility. Continue physical therapy. 9. Deep vein thrombosis prophylaxis. On Lovenox. PLAN: To continue weaning of sedation and vent. Continue physical therapy and Speech to evaluate swallowing. Dictated by SNEHAL Laguerre Taylor Aparicio MD MY/MODL /[id number]
--- NOTE | 2019-11-04 18:36 | Progress Note ---
DATE: SUBJECTIVE: Mr. Miles is slowly getting better. There are no new complaints. He is alert. OBJECTIVE: VITAL SIGNS: Stable. HEENT: He is not icteric. NECK: Supple. CHEST: Clear. HEART: S1 and S2. ABDOMEN: Soft. Bowel sounds present. EXTREMITIES: No edema. SKIN: No rash. The patient, who is currently on dexamethasone and Lovenox. PLAN: To discontinue dexamethasone. Continue with supportive care. We will follow. MD MAYURI Taylor/ANGELA /[id number]
--- NOTE | 2019-11-04 19:21 | Progress Note ---
DATE: ADDENDUM: Disregard the last sentence, the patient is not on dexamethasone. MD MAYURI Taylor/ANGELA /[id number]
[2019-11-05] VITALS (24 sets, daily range): BP systolic 97–151; BP diastolic 64–100
[2019-11-05 05:21] LABS: BASOPHILS % 0.3 % (0.0-1.0); EOSINOPHILS # (AUTO) 1.1 (0.0-0.4); EOSINOPHILS % 11.2 % (0.0-6.0); HEMOGLOBIN 8.8 g/dL (14.0-18.0); LYMPHOCYTES # (AUTO) 0.7 (1.0-3.2); LYMPHOCYTES % 7.4 % (18.0-39.1); MEAN CORPUSCULAR HEMOGLOBIN 28.5 pg (28-32); MEAN CORPUSCULAR HGB CONC 30.3 g/dL (31-35); MEAN CORPUSCULAR VOLUME 93.9 fL (81-99); MONOCYTES # (AUTO) 0.7 (0.2-0.8); MONOCYTES % 7.4 % (4.4-11.3); NEUTROPHILS # (AUTO) 7.2 (2.1-6.9); NEUTROPHILS % 73.1 % (38.7-80.0); PLATELET COUNT 290 x10e3/uL (140-360); RED BLOOD COUNT 3.09 x10e6/uL (4.3-5.7); RED CELL DISTRIBUTION WIDTH 14.6 % (11.7-14.4)
[2019-11-05 05:34] LABS: ALANINE AMINOTRANSFERASE 38 IU/L (0-55); ALBUMIN 3.6 g/dL (3.5-5.0); ALBUMIN/GLOBULIN RATIO 0.9 (0.8-2.0); ALKALINE PHOSPHATASE 100 IU/L (40-150); ANION GAP 16.9 mmol/L (8-16); BLOOD UREA NITROGEN 26 mg/dL (7-26); BUN/CREATININE RATIO 41 (6-25); CALCIUM 8.9 mg/dL (8.4-10.2); CARBON DIOXIDE 24 mmol/L (22-29); CHLORIDE 106 mmol/L (98-107); CREATININE, SERUM 0.64 mg/dL (0.72-1.25); EST GLOMERULAR FILTRATION RATE > 60 ML/MIN (60-); GLUCOSE 104 mg/dL (74-118); POTASSIUM 3.9 mmol/L (3.5-5.1); SODIUM 143 mmol/L (136-145)
--- NOTE | 2019-11-05 09:28 | Progress Note ---
DATE: 11/05/2019 Renal Progress Note SUBJECTIVE: The patient is followed for hypokalemia as well as for fluid overload, COVID-19 pneumonia. The patient is on vent via trach. The patient is stable. Potassium remains stable as well. OBJECTIVE: VITAL SIGNS: Have been noted. FiO2 40% on the vent via trach, blood pressure 125/83, pulse 96, afebrile. LUNGS: Have rhonchi bilaterally in all lung [place]. CARDIOVASCULAR: S1 and S2. No rub. ABDOMEN: Soft. Positive bowel sounds. EXTREMITIES: No edema. LABORATORY DATA: Potassium is 3.9, BUN is 26, creatinine 0.6, and calcium is 8.9. IMPRESSION AND PLAN: 1. Hypokalemia has resolved. Continue potassium via G-tube as scheduled currently. 2. Hypertension. Blood pressure is currently controlled. 3. COVID-19 pneumonia. Plan per Critical Care. 4. Fluid overload has improved significantly. We will continue to monitor closely. The patient is off Lasix drip now. Alex Roger MD /MODL /[id number]
[2019-11-05] MEDS: FUROSEMIDE INJ 10 MG/ML 4 ML VIAL IV SCH (10:00)
[2019-11-05] MEDS: MULTIVITAMINS/MINERALS TAB PO SCH (10:01)
[2019-11-05] MEDS: BALSAM PERU/CASTOR OIL 60 GM OINT...G. TP SCH ×2 (10:01→20:18)
[2019-11-05] MEDS: POTASSIUM CHLORIDE 20MEQ/15ML UDC NG SCH (10:01)
[2019-11-05] MEDS: METOPROLOL TARTRATE 25 MG TAB PO SCH ×2 (10:01→20:18)
[2019-11-05] MEDS: ENOXAPARIN SOD INJ 40 MG/0.4 ML SYR SC SCH ×2 (10:01→20:18)
[2019-11-05] MEDS: ZINC SULFATE 220 MG CAP PO SCH (10:01)
[2019-11-05] MEDS: ASCORBIC ACID 500 MG TAB PO SCH ×2 (10:01→20:18)
[2019-11-05] MEDS: CHOLECALCIFEROL 1,000 UNIT TAB PO SCH (10:01)
[2019-11-05] MEDS: DEXMEDETOMIDINE 200MCG/NS 50ML 50 ML IV PRN ×6 (10:02→20:18)
[2019-11-05] MEDS: BISMUTH SUBSALICYLATE 262 MG/15 ML 8OZ BTL PO PRN (10:02)
--- NOTE | 2019-11-05 11:09 | Progress Note ---
DATE: 11/05/2019 Cardiology Progress Note. SUBJECTIVE: No complaints. Sitting up in chair with PT/OT. OBJECTIVE: VITAL SIGNS: Temperature 98.6, heart rate 93, blood pressure 132/94, respiratory rate 26, O2 saturation 100%. GENERAL: No acute distress. Trach in place. CHEST: With decreased breath sounds in bilateral bases and scattered rales. CARDIOVASCULAR: Regular rate and rhythm. Normal S1 and S2. ABDOMEN: Soft. Bowel sounds positive. EXTREMITIES: No edema. CARDIOVASCULAR MEDICATIONS: Reviewed. Metoprolol tartrate 25 mg every 12 hours, furosemide 40 mg daily, Lovenox 40 mg q.12 hours. STUDIES: Sodium 143, potassium 3.9, chloride 106, bicarbonate 24, BUN 26, creatinine 0.6, glucose 104. White blood cells 9.8, hemoglobin 8.8, platelets 290. INR 1.2. AST 16, ALT 38, alkaline phosphatase 100, total bilirubin 0.4. ASSESSMENT AND PLAN: A 44-year-old man presents with acute on chronic diastolic heart failure, hypertension, COVID-19 infection, community acquired pneumonia, acute respiratory failure on ventilator support requiring trach, anemia. RECOMMEND: Continue current cardiovascular medications and continue PT/OT. John Romero MD [facility]/MODL /[id number]
--- NOTE | 2019-11-05 11:20 | Progress Note ---
DATE: SUBJECTIVE: The patient is still receiving enteral feedings. He is communicating with his family by face time. The patient had spontaneous breathing trial for 40 minutes yesterday. PHYSICAL EXAMINATION: VITAL SIGNS: Blood pressure is 148/91, saturation is 100% and heart rate is 90. HEENT: No facial swelling or erythema. Static examination shows no submandibular, cervical, or supraclavicular adenopathy. CARDIAC: Regular rate and rhythm with normal S1, S2. LUNGS: Auscultation of lungs reveals rhonchorous breath sounds bilaterally. There is no wheezing. ABDOMEN: Soft, nontender. There is no rebound or guarding. EXTREMITIES: No leg edema or calf tenderness. There is no cyanosis or clubbing. SKIN: No rashes. NEUROLOGICAL: No focal abnormalities. IMPRESSION: 1. Acute respiratory failure. 2. Viral pneumonia and coronavirus disease-19 infection. 3. Splenomegaly. 4. Myopathy of critical illness. 5. Anemia. PLAN: 1. Spontaneous breathing trial again today. 2. Wean off Versed and fentanyl. 3. Continue Precedex. 4. Continue enteral feedings. 5. Physical therapy. Maximilian Lowry MD [facility]/REYESL /[id number]
--- NOTE | 2019-11-05 14:28 | NUR ---
ST Note: Discussed case with RN this afternoon. Pt not ready for po trials. Trials with Passy Fay Speaking Valve (PMV) would beneficial for communication and improved success with po trials (when ready). An order for cuff deflation and PMV required. Will f/u for cuff deflation trials/PMV eval when ordered by MD and indicated.
--- NOTE | 2019-11-05 15:13 | NUR ---
Nutrition Intervention Note RD Recommendation(s) for Physician: - Continue Pivot 1.5. Recommend increasing goal rate to 45 ml/hr (to provide 1620 kcal and 101 gm protein). Give 2 packets/day Beneprotein (provides an additional 50 kcal and 12 gm protein) - Pt may be fed at goal rate when prone in reverse Trendelenburg position with HOB 10-25 degrees - Water flushes per MD Plan of Care: RD following, TF rec's, monitor adequacy and tolerance, tube feed recommendation Nutrition reason for involvement: follow up RD Assessment 11/04: Follow up. Chart reviewed. Pt remains on vent with trach. Pt is tolerating TF of Pivot 1.5 @ 40 mL/hr per chart. Pt is no longer receiving propofol per RN; therefore, new recommendations are provided. RD to manage TF order per Dr. Lowry. Will continue to monitor. 10/30: Follow up. Chart reviewed. Last recorded propofol rate was 5.2 mL/hr. Pt is tolerating TF per RN and is receiving Pivot @ 40 mL/hr. Current tube feeding remains appropriate. Will continue to monitor. 10/27: Follow up. Pt s/p trach placement yesterday. Pt observed outside of room, supine and physically appears well nourished. Spoke with RN on unit, TF resumed, infusing at goal rate post trach placement, and pt tolerating well. Pt continues to require fluctuating Propofol dosage. Current TF remains appropriate to meet needs, Propofol providing additional kcal currently. Chart reviewed. Will continue to monitor. 10/23: Follow up. Chart reviewed. Pt remains intubated and sedated. Pt is receiving propofol at 11.3 mL/hr which provides an additional 298 kcal. Last recorded tube feed rate was 30 mL/hr this morning. Pt is receiving Vital High Protein per RN. Recommend modifying tube feeding to Pivot 1.5. RD to manage TF order per Dr. Lowry. Will continue to monitor. 10/20: Follow up. Pt remains intubated, sedated, and paralyzed. Propofol stopped yesterday. Pt continues to require intermittent proning. No GI distress, pt having BMs, and TF currently infusing at 30 ml/hr. Noted Phos elevated after KPhos replacement. Plan for trach placement. Chart reviewed. In light of Propofol d/c, updated TF rec's provided. RD to manage TF order per Dr. Lowry. Will continue to monitor. 10/16: Follow up. Chart reviewed. Pt remains intubated and sedated. Pt is in the prone position per chart. Pt remains on Vital AF 1.2 trickle feeding currently at 10 mL/hr Recommended considering TPN if tube feeding rate is unable to be increased. Pt is receiving propofol at 22.6 mL/hr per chart which provides 597 kcal. Will continue to monitor 10/12: Follow up. Pt remains intubated and sedated with Propofol and Versed. Pt paralyzed with Nimbex. Pt now on Levophed, currently at 10 mcg/min. Pt on trickle TF currently, pt with ileus per MD notes. Spoke with Dr. Lowry over the phone, RD recommended considering TPN as pt continues to not meet needs with TF and currently with an ileus. stated that he would prefer to utilize the gut for now and will re-evaluate. RD requested Phos and Mg be drawn in case TPN required tomorrow to evaluate for replacements and initiation. Noted afternoon Phos and Mg WNL. Chart reviewed, plan for trach placement. TPN and TF rec's provided. Will continue to monitor. 10/09: Follow up. Chart reviewed. MD note indicates pt is in the supine position. Per documentation, pt is receiving TF at 30mL/hr not meeting kcal or protein needs. Current recommendations remain appropriate recommend increasing rate to 60 mL/hr. Will continue to monitor. 10/05: Follow up. Chart reviewed. Pt remains intubated and was in the supine position overnight. Pt is no receiving propofol at this time. Pts tube feed is at 20 mL/hr per chart not meeting kcal or protein needs. Tube feed recommendations provided. Will continue to monitor. 10/01: Follow up. Pt remains intubated, sedated on Propofol, and paralyzed. Pt requiring to be proned. TF rate decreased to 20 ml/hr currently- not meeting kcal or protein needs. TF rec's provided. Chart reviewed. Will continue to monitor. 09/29: Follow up. Pt remains intubated, sedated on high dose Propofol, and paralyzed. Pt requiring to be in intermittent prone positioning. TF infusing at 35 ml/hr, not meeting protein needs. TF rec's provided. Chart reviewed. Will continue to monitor. 09/25: Follow up. Chart reviewed. Pt remains intubated and sedated. Pt is receiving propofol at 7.8 mL/hr which provides 205 lipid kcal. TF is infusing at 20 mL/hr. Recommend modifying tube feed formula to Vital High Protein at this time. Will continue to monitor. 09/22: Follow up. Pt remains intubated, sedated, and paralyzed. Pt requiring proning. TF infusing at 10 ml/hr and TPN weaned to 20 ml/hr. Chart reviewed. TF and TPN rec's provided pending ability to advance TF. Will continue to monitor. 09/18: Follow up. Chart reviewed. Pt remains intubated and sedated. Pt was started on tube feeding. Last recorded rate was 20 mL/hr this afternoon. Pt continues to receive TPN @ 42 mL/hr. Propofol rate is at 13.4 mL/hr (provides 354 kcal). Recommendations provided. Will continue to monitor 09/15: Follow up. Pt remains intubated, sedated on Propofol at 19.6 ml/hr, and paralyzed. Pt continues on TPN at 42 ml/hr, not meeting needs. Pt continues with persistent ileus and is receiving enemas and suppositories. Pt requiring daily proning 2/2 respiratory status. TF order remains, recommend NPO for now. TPN goal rec's provided, continues at 42 ml/hr. Chart reviewed. Will continue to monitor. 09/11: Follow up. Chart reviewed. Pt remains intubated and sedated. Pt is receiving 30 mL/hr of propofol per documentation which provides 792 lipid kcal. Tube feeding has been held due to abdominal distention and pt was started on TPN @ 42 mL/hr today. MD note indicates pt has an ileus. Recommendations provided. Will continue to monitor. 09/07: Follow up. Chart reviewed. Pt remains intubated and sedated. Pt is receiving 23.6 mL/hr of propofol per documentation which provides 623 lipid kcal. TF was at 20 mL/hr last night per chart. Per MD note, pts abdomen is distended and has not had a BM. Will continue to monitor. 09/04: Follow up. Pt remains intubated and sedated. Pt is receiving 9 mL/hr of propofol per documentation, which provides 238 lipid kcal. TF was at 20 mL/hr per chart yesterday. No additional administration rate is available. Will continue to monitor. 09/02: Follow up. Pt remains intubated, paralyzed, and sedated on Propofol and Versed. Pt requiring proning. TF rate at 10 ml/hr per TF documentation yesterday- inadequate EN currently, no additional EN administration available per chart. Recommend continuing EN while pt is proned by placing them in reverse Trendelenburg position. If unable to advance TF to goal rate, recommend considering PN. Chart reviewed. Will continue to monitor. 08/29: Initial encounter with patient. Pt is sedated and orally intubated. Pt was not able to provide a nutrition Hx at the time of visit. Unable to observe oral cavity or perform a nutrition focused physical exam. Jevity 1.2 infusing at 20ml hr with a goal of 50ml/hr. Propofol provides 1.1kcal/ml EN provides 576 kcals, 26.64g of protein, and 387.36ml of free H2O Principal Problems/Diagnoses: CoVID 19 pneumonia PMH: No significant medical Hx, overweight/obesity GI: soft/large/round abdomen, last recorded BM 11/03 Skin: stage 2 right ear pressure ulcer, penis ischemic edema, bilateral knees- ischemic edema, scrotal abrasion Labs: 11/04: Na 143, K 3.9, BUN 26, Cr 0.64, Glu 104, Ca 8.9 10/30: Na 142, K 3.9, BUN 37, Glu 137, Ca 9.3, Phos 3.4, Mg 2.5 10/27: Na 139, K 3.4, BUN 25, Cr 0.76, Gluc 111, Phos 3.6, Mg 2.2 10/23: Na 138, K 3.5, BUN 20, Cr 0.76, Glu 114, Ca 8.6 10/20: Na 136, K 5, BUN 12, Cr 0.6, Gluc 108, Phos 5.9, Mg 2.4, POC Gluc 103-115 10/16: Na 143, K 3.4, BUN 10, Cr 0.51, Glu 101 10/12: Na 139, K 4.1, BUN 20, Cr 0.57, Cl 103, CO2 25, Gluc 135, Phos 3.3, Mg 1.8 10/09: Na 140, K 3.4, BUN 15, Cr 0.44, Glu 103 10/05: Na 139, K 3.3, BUN 15, Cr 0.42, Glu 113, Ca 8.2 10/01: Na 139, K 4, BUN 12, Cr 0.59, Gluc 141, POC Gluc 127-175 09/29: Na 138, K 2.9, BUN 5, Cr 0.39, Gluc 87, POC 107-116 Meds: metoprolol, multivitamin with minerals, zinc sulfate, vitamin D, vitamin C, lasix, fentanyl Ht: 67 in. Wt: 186 lbs (11/02) 193 lbs (10/26)- continued wt fluctuations, 203.56 lbs (10/17) 156 lbs- questionable wt (10/16) 206 lbs (10/12) 212 lbs (10/09) 236 lbs (10/05) 251 lbs (09/28) 253.5 lbs (09/25) 254.31 lb, 200.44lbs (08/29) - admit wt BMI: 31.4kg/m2 (weight used- 200 lbs) IBW: 148 lbs Malnutrition Evaluation (10/28/2019) The patient does not meet criteria for a specified degree of malnutrition at this time. Will re-evaluate at follow-up as appropriate. Intake adequacy: TF meeting needs Wt loss: pt with wt fluctuations since admit related to fluid Fat loss: none, ample skinfold thickness of arm observed outside pt room Muscle loss: none, shoulder round, rastafarian muscle apparent as observed outside of pt room Edema: moderate, +2 edema Functional status: JACOB due to intubation Nutrition Prescription (Diet Order): Pivot 1.5 at 40 ml/hr + Beneprotein BID (providing 1490 kcal and 102 gm protein) Estimated Nutritional Needs: 7769-1959 calories/day (22-25 kcal/kg IBW) 101-135 g protein/day (1.5-2 g pro/kg IBW) Diet Adequacy: meeting calorie needs, meeting protein needs Diet Education Needs Assessment: Diet education not indicated. Nutrition Care Level: moderate- TF at goal rate Nutrition Diagnosis: Inadequate energy and protein intake related to intubation as evidenced by pt requiring alternative means of nutrition. Goal: Patient will meet 75-100% of estimated needs by follow up Progress: goal met Interventions: Composition, Rate, Route, Recommended modifications Monitoring/Evaluation: Total energy intake, Total protein intake, Formula/Solution, Prescription medication, Weight change Signed: Nina Reese RD, LD
--- NOTE | 2019-11-05 17:12 | Progress Note ---
DATE: 11/05/2019 CONSULTANTS: 1. Dr. Lowry, pipe insulator helper. 2. Dr. Maguire. Infectious Disease. 3. Dr. Casas, Cardiology. 4. Dr. Rodríguez, Nephrology. SUBJECTIVE: Resting in bed with no acute distress, he is off propofol and only on Precedex. He denies any abdominal pain or chest pain. PHYSICAL EXAMINATION: VITAL SIGNS: Temperature 99.8, pulse is 99, respirations 26, blood pressure 136/88, and pulse ox is 100% on the vent. GENERAL: No acute distress. HEENT: Normocephalic, atraumatic. Tracheostomy in place. LUNGS: Decreased breath sounds. CARDIOVASCULAR: Regular rate and rhythm. NEUROLOGIC: Alert, awake. PSYCH: Calm. LABORATORY DATA: WBC 9.86, hemoglobin 8.8, hematocrit 29.0, and platelet 290. Sodium 143, potassium 3.9, creatinine 0.64, estimated GFR greater than 60, calcium 8.9, magnesium 2.1, AST 16, ALT 38, and albumin 3.6. IMPRESSION: 1. Acute respiratory failure due to coronavirus disease-19 pneumonia. Status post tracheostomy. Continue weaning off the vent. He is off antibiotics. 2. Leukocytosis. Resolved. We will continue to monitor off antibiotics. 3. Acute on chronic anemia. Hemoglobin is stable. We will continue to monitor. 4. Thrombocytopenia. Resolved. 5. Tachycardia. Resolved. Beta-blockers per Cardiology. 6. Generalized edema. Diuretics per Renal. 7. Debility. Continue physical therapy as tolerated. 8. Deep vein thrombosis prophylaxis. On Lovenox. PLAN: Continue weaning off sedation and vent, off antibiotics, and continue physical therapy. Dictated by SNEHAL Laguerre Taylor Aparicio MD MY/MODL /[id number]
--- NOTE | 2019-11-05 18:57 | Progress Note ---
DATE: SUBJECTIVE: Mr. Miles remains in intensive care unit, comfortable. Enteral feeding, difficulty swallowing still. PHYSICAL EXAMINATION: GENERAL: Currently alert and oriented. VITAL SIGNS: Stable, afebrile. HEENT: He is not icteric. NECK: Supple. CHEST: Crackles bilateral. HEART: S1 and S2. ABDOMEN: Soft. Bowel sounds present. EXTREMITIES: No edema. SKIN: No rash. IMPRESSION: Myopathy, debility, respiratory failure, slowly getting better. Continue to wean him off sedative, PT/OT, oral evaluation for swallowing. Continue with the supportive care as ordered. Discussed with medical team. MD MAYURI Taylor/MODL /[id number]
--- NOTE | 2019-11-05 23:50 | Diagnostic Imaging Report ---
EXAM: Abdomen Radiograph 1 View INDICATION: ^ng tube placement conf. ^[id number] ^[id number] COMPARISON: Chest CT 11/01/2019 FINDINGS: Hazy opacities in the lower lungs. Enteric tube tip in the expected location of the distal gastric lumen. Normal volume of stool in the colon. No dilated loops of small bowel. No abnormal abdominal calcifications.. No abnormal soft tissue masses. No pneumoperitoneum. No acute osseous abnormality. Mild degenerative changes in the lumbar spine and pelvis. IMPRESSION: Enteric tube tip in the expected location of the distal gastric lumen. Hazy opacities in the lower lungs may be atelectasis pneumonia and/or effusion. Signed by: Colby Rolle DO on 11/05/2019 11:46 PM
[2019-11-06] VITALS (23 sets, daily range): BP systolic 111–168; BP diastolic 76–103
[2019-11-06] MEDS: DEXMEDETOMIDINE 200MCG/NS 50ML 50 ML IV PRN ×2 (04:00→21:10)
[2019-11-06 05:19] LABS: ALANINE AMINOTRANSFERASE 33 IU/L (0-55); ALBUMIN 3.5 g/dL (3.5-5.0); ALBUMIN/GLOBULIN RATIO 0.9 (0.8-2.0); ALKALINE PHOSPHATASE 96 IU/L (40-150); ANION GAP 18.8 mmol/L (8-16); BLOOD UREA NITROGEN 27 mg/dL (7-26); BUN/CREATININE RATIO 42 (6-25); CALCIUM 8.9 mg/dL (8.4-10.2); CARBON DIOXIDE 23 mmol/L (22-29); CHLORIDE 104 mmol/L (98-107); CREATININE, SERUM 0.64 mg/dL (0.72-1.25); EST GLOMERULAR FILTRATION RATE > 60 ML/MIN (60-); GLUCOSE 117 mg/dL (74-118); MAGNESIUM 2.1 MG/DL (1.3-2.1); PHOSPHORUS 3.6 MG/DL (2.3-4.7); POTASSIUM 3.8 mmol/L (3.5-5.1); SODIUM 142 mmol/L (136-145)
[2019-11-06] MEDS: FUROSEMIDE INJ 10 MG/ML 4 ML VIAL IV SCH (08:17)
[2019-11-06] MEDS: ASCORBIC ACID 500 MG TAB PO SCH ×2 (08:17→20:16)
[2019-11-06] MEDS: METOPROLOL TARTRATE 25 MG TAB PO SCH ×2 (08:17→20:16)
[2019-11-06] MEDS: CHOLECALCIFEROL 1,000 UNIT TAB PO SCH (08:17)
[2019-11-06] MEDS: MULTIVITAMINS/MINERALS TAB PO SCH (08:17)
[2019-11-06] MEDS: POTASSIUM CHLORIDE 20MEQ/15ML UDC NG SCH (08:17)
[2019-11-06] MEDS: ZINC SULFATE 220 MG CAP PO SCH (08:18)
[2019-11-06] MEDS: BALSAM PERU/CASTOR OIL 60 GM OINT...G. TP SCH ×2 (08:18→20:16)
[2019-11-06] MEDS: ENOXAPARIN SOD INJ 40 MG/0.4 ML SYR SC SCH ×2 (08:18→20:16)
--- NOTE | 2019-11-06 09:08 | Diagnostic Imaging Report ---
EXAMINATION: CHEST SINGLE (PORTABLE) INDICATION: Respiratory failure COMPARISON: Chest radiograph 11/03/2019 FINDINGS: LINES/TUBES:Tracheostomy tube unchanged. Enteric tube terminates in the distal stomach. EKG leads overlie the chest. LUNGS:The lungs are moderately inflated. Unchanged bilateral interstitial and airspace opacities. PLEURA:Unchanged trace bilateral pleural effusions. No pneumothorax. MEDIASTINUM:The cardiomediastinal silhouette appears unchanged in size and shape. BONES/SOFT TISSUES:No acute osseous injury. ABDOMEN:No free air under the diaphragm. IMPRESSION: No significant interval change. Signed by: Farrah Pierson MD on 11/06/2019 9:04 AM
--- NOTE | 2019-11-06 09:57 | NUR ---
Received order for LTAC eval. CM placed call to pt's mother Reyna Miles at [phone] and left a voicemail for callback.
--- NOTE | 2019-11-06 10:05 | Progress Note ---
DATE: SUBJECTIVE: The patient is now on the pressure control mode of ventilation. He tolerated trach collar for 40 minutes yesterday. He is awake and complaining that his limbs are stiff. Nursing is administering passive range of motion exercises. PHYSICAL EXAMINATION: VITAL SIGNS: The patient is afebrile. The patient remains on a PRVC mode of ventilation. Blood pressure is 136/90, saturation is 100%, and respiratory rate is 26. HEENT: Shows no facial swelling or erythema. There is a tracheostomy tube, site is clean. There is no drainage. CARDIAC: Reveals regular rhythm with normal S1 and S2. LUNGS: Auscultation of lungs rhonchorous breath sounds bilaterally. There is no wheezing. ABDOMEN: Soft and nontender. There is no rebound or guarding. EXTREMITIES: Show no leg edema or calf tenderness. There is no cyanosis or clubbing. SKIN: Shows no rashes. LABORATORY DATA: White blood count 9.8, hemoglobin is 8.8, and platelet count is 290. The BUN to creatinine ratio is 27 to 0.64. The other electrolytes are within normal limits. The albumin is 3.5. RADIOGRAPHIC DATA: Chest x-ray shows bilateral pulmonary infiltrates. IMPRESSION: 1. Acute respiratory failure. 2. Viral pneumonia and coronavirus disease 2019 infection. 3. Myopathy of critical illness. 4. Anemia. PLAN: 1. Repeat trach collar trial today. 2. Continue Precedex. 3. Continue enteral feedings. 4. Passive range of motion exercises. MD SAMINA Angel/ANGELA /[id number]
[2019-11-06] MEDS ORDERED: TRAMADOL HCL 50 MG TAB PO PRN (10:15)
--- NOTE | 2019-11-06 10:15 | Progress Note ---
DATE: 11/06/2019 Cardiology Progress Note SUBJECTIVE: No complaints. OBJECTIVE: VITAL SIGNS: Temperature 98.8, heart rate 86, blood pressure 136/92, respiratory rate 27, O2 saturation 100%. GENERAL: In no acute distress. Alert. NECK: Trach in place, on positive-pressure ventilation this a.m. CHEST: With rales and decreased breath sounds. CARDIOVASCULAR: Regular rate and rhythm. Normal S1 and S2. ABDOMEN: Soft. Bowel sounds positive. EXTREMITIES: No edema. CARDIOVASCULAR MEDICATIONS: Reviewed. On metoprolol tartrate 25 mg every 12 hours and Lovenox 40 mg q.12 hours. STUDIES: Reviewed. Sodium 142, potassium 3.8, chloride 104, bicarbonate 23, BUN 27, creatinine 0.6, glucose 117. White blood cells 9.8, hemoglobin 8.8, platelets 290. PT 16.5, PTT 37.7, INR 1.2. AST 15, ALT 33, alkaline phosphatase 96. ASSESSMENT AND PLAN: A 44-year-old man presents with anemia, hypertension, COVID-19 infection, community-acquired pneumonia, acute respiratory failure with prolonged ventilatory support, now status post trach, hypertension, acute diastolic heart failure. RECOMMEND: Continue current cardiovascular medications. Continue rehab. MD OPAL Del Valle/ANGELA /[id number]
--- NOTE | 2019-11-06 12:17 | NUR ---
LETY called and spoke with pt's mother Reyna Miles [phone] and discussed LTAC. She stated she is in agreement with whatever the doctor suggests. LETY informed her Dr. Lorwy suggested [facility]. She is agreeable. Choice letter placed in chart. Referral was faxed to [facility] at [phone]. Chichi Montoya with [facility] was informed of referral.
--- NOTE | 2019-11-06 14:06 | Progress Note ---
DATE: 11/06/2019 Renal Progress Note. SUBJECTIVE: The patient is followed for hypokalemia, fluid overload, has also COVID-19 pneumonia, in on the vent via trach, appears to be stable. Potassium has been stable at 3.8. OBJECTIVE: VITAL SIGNS: Vital signs have been noted and are stable. LUNGS: Rhonchi bilaterally. CARDIOVASCULAR: S1, S2. No rub. ABDOMEN: Soft. Positive bowel sounds. EXTREMITIES: No edema. LABORATORY DATA: Reviewed. Potassium is 3.8. Creatinine is normal. IMPRESSION: 1. Hypokalemia. Continue potassium by NG tube. 2. Hypertension, stable. 3. Fluid overload, stable on once-a-day Lasix. 4. COVID-19 pneumonia. Plan for primary MD and critical care. Alex Roger MD /MODL /[id number]
--- NOTE | 2019-11-06 17:22 | Progress Note ---
DATE: SUBJECTIVE: Mr. Miles is weak, but he is alert, follows simple command. He is still having difficulty swallowing. He has trach. He still has some rhonchi. PHYSICAL EXAMINATION: GENERAL: Currently alert. VITAL SIGNS: Stable, afebrile. HEENT: He is not icteric. NECK: Supple. CHEST: Few rhonchi. HEART: S1, S2. ABDOMEN: Soft. IMPRESSION: Extreme fatigue and debility. Continue PT/OT. Continues to improve. He still has diarrhea but I think continue with his feeding. I would like to see if we can switch him to oral, however, he cannot swallow. Continue PT/OT. Continue with nutritional support as ordered. We will follow. MD MAYURI Taylor/MODL /[id number]
[2019-11-06] MEDS: BISMUTH SUBSALICYLATE 262 MG/15 ML 8OZ BTL PO PRN (20:17)
--- NOTE | 2019-11-06 20:43 | Progress Note ---
DATE: 11/06/2019 CONSULTANTS: 1. Dr. Lowry, coding and reimbursement specialist. 2. Dr. Maguire, Infectious Disease. 3. Dr. Casas, cardiology. 4. Dr. Rodríguez, nephrology. SUBJECTIVE: The patient is seen on trach collar trial, he is off propofol and only on Precedex. He denies any chest pain or abdominal pain, he appears to be resting comfortably. OBJECTIVE: VITAL SIGNS: Temperature 99.3, pulse is 115, respirations 28, blood pressure 135/84, pulse ox 100% on trach collar. GENERAL: No acute distress. HEENT: Normocephalic, atraumatic. Tracheostomy in place. LUNGS: With decreased breath sounds. CARDIOVASCULAR: Tachycardic. NEUROLOGIC: Alert, awake. PSYCH: Calm. LABORATORY DATA: Sodium 142, potassium 3.8, CO2 of 23, BUN 27, creatinine 0.62, estimated GFR greater than 60. Blood glucose 117, calcium 8.9, phosphorus 3.6, magnesium 2.1, AST 15, ALT 33. Chest x-ray, no significant interval change. IMPRESSION: 1. Acute respiratory failure due to coronavirus disease 2019 pneumonia. Status post tracheostomy. Trach collar training daily. Off antibiotics. 2. Leukocytosis. Resolved. 3. Chronic anemia. Hemoglobin is stable. We will continue to monitor. 4. Thrombocytopenia. Resolved. 5. Tachycardia. Continue beta-blockers per Cardiology. 6. Generalized edema. Diuretics per Renal. 7. Debility. Continue physical therapy as tolerated. 8. Deep vein thrombosis prophylaxis. Continue on Lovenox. PLAN: To continue weaning sedation and trach collar trial daily as tolerated. CM consulted for LTAC placement. Dictated by SNEHAL Laguerre Taylor Aparicio MD MY/MODL /[id number]
[2019-11-07] VITALS (25 sets, daily range): BP systolic 114–152; BP diastolic 75–108
[2019-11-07 04:29] LABS: BASOPHILS % 0.4 % (0.0-1.0); EOSINOPHILS # (AUTO) 0.5 (0.0-0.4); EOSINOPHILS % 4.9 % (0.0-6.0); HEMATOCRIT 28.8 % (38.2-49.6); HEMOGLOBIN 8.8 g/dL (14.0-18.0); MEAN CORPUSCULAR HEMOGLOBIN 27.8 pg (28-32); MEAN CORPUSCULAR HGB CONC 30.6 g/dL (31-35); MEAN CORPUSCULAR VOLUME 91.1 fL (81-99); MONOCYTES # (AUTO) 0.8 (0.2-0.8); MONOCYTES % 7.6 % (4.4-11.3); NEUTROPHILS # (AUTO) 8.3 (2.1-6.9); NEUTROPHILS % 77.5 % (38.7-80.0); PLATELET COUNT 366 x10e3/uL (140-360); RED BLOOD COUNT 3.16 x10e6/uL (4.3-5.7); RED CELL DISTRIBUTION WIDTH 14.4 % (11.7-14.4)
[2019-11-07] MEDS: ENOXAPARIN SOD INJ 40 MG/0.4 ML SYR SC SCH ×2 (08:10→19:55)
[2019-11-07] MEDS: ZINC SULFATE 220 MG CAP PO SCH (08:10)
[2019-11-07] MEDS: MULTIVITAMINS/MINERALS TAB PO SCH (08:10)
[2019-11-07] MEDS: CHOLECALCIFEROL 1,000 UNIT TAB PO SCH (08:10)
[2019-11-07] MEDS: BALSAM PERU/CASTOR OIL 60 GM OINT...G. TP SCH ×2 (08:10→19:55)
[2019-11-07] MEDS: METOPROLOL TARTRATE 25 MG TAB PO SCH ×2 (08:10→19:55)
[2019-11-07] MEDS: ASCORBIC ACID 500 MG TAB PO SCH ×2 (08:10→19:55)
[2019-11-07] MEDS: BISMUTH SUBSALICYLATE 262 MG/15 ML 8OZ BTL PO PRN (08:13)
[2019-11-07] MEDS: POTASSIUM CHLORIDE 20MEQ/15ML UDC NG SCH (08:13)
[2019-11-07] MEDS: FUROSEMIDE INJ 10 MG/ML 4 ML VIAL IV SCH (09:33)
--- NOTE | 2019-11-07 09:34 | Progress Note ---
DATE: 11/07/2019 Renal Progress Note SUBJECTIVE: Followed for hypokalemia, fluid overload, and COVID-19 pneumonia. The patient has been doing well. The patient is on trach collar now. COVID-19 pneumonia is improving. The patient is doing well. Saturating 100% on trach collar. OBJECTIVE: VITAL SIGNS: Noted. Blood pressure 140/86. The patient is afebrile. LUNGS: Rhonchi bilaterally. CARDIOVASCULAR: S1 and S2. No rub. ABDOMEN: Soft and nontender. EXTREMITIES: No edema. LABORATORY DATA: H and H 8.8 and 28.8. Sodium 142, potassium 3.8, BUN is 27, and creatinine 0.6. IMPRESSION AND PLAN: 1. Hypokalemia, resolved now. Continue potassium through the G-tube. 2. Hypertension. Blood pressure is controlled. 3. COVID-19 pneumonia, improved significantly. The patient is on trach collar now and improving his oxygenation. 4. Fluid overload. Continue daily Lasix as already doing. Alex Roger MD TH/MODL /[id number]
--- NOTE | 2019-11-07 15:12 | Progress Note ---
DATE: SUBJECTIVE: The patient has been on trach collar all morning. He is not having any respiratory distress and is saturating 100%. PHYSICAL EXAMINATION: VITAL SIGNS: The blood pressure is 138/94 and his respiratory rate is in the high 20s. HEENT: Shows no facial swelling or erythema. There is a tracheostomy site. It looks clean. CARDIAC: Reveals regular rate and rhythm with normal S1 and S2. LUNGS: Auscultation of lungs reveals decreased breath sounds at the bases. There is no wheezing. ABDOMEN: Soft and nontender. There is no rebound or guarding. EXTREMITIES: Show no leg edema or calf tenderness. There is no cyanosis or clubbing. SKIN: Shows no rashes. NEUROLOGICAL: Shows no focal abnormalities. LABORATORY DATA: White blood cell count is 10.7, hemoglobin is 8.8, and the platelet count is 366. The BUN to creatinine ratio is normal. The other electrolytes are within normal limits. IMPRESSION: 1. Acute respiratory failure. 2. Viral pneumonia and COVID-19 infection. 3. Myopathy of critical illness. 4. Anemia. PLAN: 1. Continue trach collar as tolerated. 2. Continue enteral feedings. 3. Passive range of motion exercises. 4. Physical therapy. Maximilian Lowry MD [facility]/MODL /[id number]
--- NOTE | 2019-11-07 16:42 | Progress Note ---
DATE: 11/07/2019 CONSULTANTS: 1. Dr. Lowry, administrative office assistant. 2. Dr. Maguire, Infectious Disease. 3. Dr. Casas, Cardiology. 4. Dr. Rodríguez, Nephrology. SUBJECTIVE: The patient is tolerating trach collar trial, he is off propofol and is only on Precedex. He denies any chest pain or abdominal pain, reports feels tired, but no other complaints. PHYSICAL EXAMINATION: VITAL SIGNS: Temperature 98.4, pulse is 100, respirations 28, blood pressure 134/82, and pulse ox 100% on trach collar. GENERAL: No acute distress, fatigued. HEENT: Normocephalic, atraumatic. Tracheostomy in place. LUNGS: Decreased breath sounds. CARDIOVASCULAR: Tachycardic, regular rate. NEUROLOGIC: Alert and awake. MUSCULOSKELETAL: Moves all extremities. SKIN: Dry. PSYCH: Calm. LABORATORY DATA: WBC 10.72, hemoglobin 8.8, and hematocrit 28.8. Sodium 142, potassium 3.8, BUN 27, creatinine 0.64, estimated GFR greater than 60, and calcium 8.9. AST 15, ALT 33. IMPRESSION: 1. Acute respiratory failure due to coronavirus disease-19 pneumonia. Status post tracheostomy, trach collar training progress. Off antibiotics. 2. Leukocytosis. Resolved. 3. Chronic anemia. Hemoglobin is stable. 4. Thrombocytopenia, resolved. 5. Tachycardia. Continue beta blockers per Cardiology. 6. Generalized edema. Diuretics per Renal. 7. Debility. Continue physical therapy as tolerated. 8. Deep venous thrombosis prophylaxis. Continue Lovenox subcu. PLAN: To continue weaning off sedation and trach collar training. Also pending placement to LTAC and physical therapy. Dictated by SNEHAL Laguerre Taylor Aparicio MD MY/MODL /[id number]
--- NOTE | 2019-11-07 17:33 | NUR ---
HEMATOLOGY/ONCOLOGY PROGRESS NOTE: HPI: Events noted. Patient is in the COVID-19 isolation ICU unit. Patient has tolerated trach collar today. ROS: 14 point ROS unable to obtain secondary to contact precautions. PHYSICAL EXAM: Vitals: Reviewed as per EMR. PE not performed due to COVID-19 contact precautions. LABORATORY/RADIOLOGY DATA: Reviewed per EMR. ASSESSMENT AND PLAN: Mr. Miles is a 44-year-old male with past medical history of hypertension who was admitted on 08/24/2019 due to cough and fever. Patient was found to be positive for COVID-19. Intubated due to worsening respiratory status. Patient has been treated with full-dose Lovenox since 09/08/19. Has required PRBC previously during admission. Patient now with dropping platelet count and recurrent anemia requiring PRBC transfusion. Hematology/Oncology has been consulted to assist with the management. 1. Thrombocytopenia: Likely secondary to consumption for infection. DIC panel showed no coagulopathy, elevated fibrinogen, does not appear DIC. Acute hepatitis panel negative. Abdominal US without evidence of liver cirrhosis or splenomegaly. HIT panel negative on 09/15/2019. Repeat DIC panel does not appear DIC with elevated fibrinogen level. THROMBOCYTOPENIA RESOLVED, mild thrombocytosis noted now. Continue on Lovenox 40mg sq BID. Monitor for now. 2. Anemia: Anemia panel appears mixed picture AOCD + RODRIGUEZ with noted low B12 level. Macrocytosis probably combination of B12 deficiency and possibly also related to bone marrow suppression from viral infection. Ferritin mildly elevated, likely as acute phase reactant. Repeat ferritin significantly more elevated hold IV iron. Reticulocyte count and LDH mildly elevated, haptoglobin elevated, does not appear hemolysis. S/p multiple PRBC transfusions, last on 11/01/2019. Repeat ferritin level 10/25 still markedly elevated, will continue to hold IV iron. USG and CT C/A/P reveal no bleed. Hemoglobin improving. CBC in am. Monitor. 3. COVID-19 PNA: In the ICU, S/P tracheostomy placement, tolerating trach collar trials as tolerated. Undergoing intermittent proning. Pneumocystis carinii smear negative. Blood cultures 10/28/19 negative. Sputum culture 10/28/19 with pseudomonas and MRSA. Currently being monitored off antibiotics. Pulmonary and infectious disease on board. 4. Melena/ileus/abd distention: Improved. Abdominal US with some biliary sludge and splenomegaly. On TFs with nutrition/GI on board. 5. Fluid overload/oligoanuria: On Lasix, monitor UOP per Nephrology on board. 6. DVT proph: Continue on Lovenox 40mg sq BID. 7. GOC: Patient is s/p trach placement. Currently undergoing speech eval as well as PT. Disposition per primary team. CM on board for possible LTAC placement. Above plan discussed with Dr. Martinez/Dr Sherwood. Thank you for the consult. I will be available. Please call with questions.
--- NOTE | 2019-11-07 18:48 | Progress Note ---
DATE: SUBJECTIVE: Mr. Miles continued to improve. He is alert but continued to be weak. There is still some cough, but he has a trach. He still has diarrhea, but he has a feeding tube. He is following commands, PHYSICAL EXAMINATION: GENERAL: He is currently alert, oriented. VITAL SIGNS: Stable. Currently afebrile. HEENT: He is not icteric. NECK: Supple. CHEST: Rhonchi. HEART: S1, S2. ABDOMEN: Soft. EXTREMITIES: No edema. SKIN: No rash. IMPRESSION: Respiratory failure, COVID-19, myopathy, debility. Continue PT/OT. Continue supportive care. There was a concern about aspiration, so he is on enteral feeding. Consider rehab evaluation. MD MAYURI Taylor/MODL /[id number]
[2019-11-07] MEDS: QUETIAPINE FUMARATE 25 MG TAB PO SCH (19:55)
[2019-11-08] VITALS (24 sets, daily range): BP systolic 97–150; BP diastolic 70–98
--- NOTE | 2019-11-08 02:39 | Progress Note ---
DATE: 11/07/2019 Cardiology Progress Note SUBJECTIVE: No complaints. OBJECTIVE: VITAL SIGNS: Temperature 99.6, heart rate 113, sinus tachycardia telemetry, blood pressure 152/108, respiratory rate 26, O2 saturation 98%. GENERAL: In no acute distress, alert. NECK: With trach with trach collar in place. CHEST: With decreased breath sounds. CARDIOVASCULAR: Regular rate and rhythm. Normal S1, S2. ABDOMEN: Soft. Bowel sounds positive. EXTREMITIES: Trace edema. CARDIOVASCULAR MEDICATIONS: Reviewed. 1. KCl 40 mEq daily. 2. Metoprolol tartrate 25 mg every 12 hours. 3. Furosemide 40 mg daily. 4. Lovenox 40 mg q.12 hours. STUDIES: Reviewed. Sodium 142, potassium 3.8 chloride 104, bicarbonate 23, BUN 27, creatinine 0.6, glucose 117. White blood cells 10, hemoglobin 8.8, platelets 366. INR 1.2. AST 15, ALT 33. ASSESSMENT/PLAN: A 44-year-old man, presents with: 1. Coronavirus disease-2019 infection. 2. Community-acquired pneumonia. 3. Prolonged respiratory failure, status post tracheostomy. 4. Deconditioning. 5. Hypertension. 6. Acute diastolic heart failure. 7. Anemia. RECOMMENDATIONS: Continue current cardiovascular medications. Continue rehab. Consider evaluation for inpatient rehabilitation and/or LTAC. MD OPAL Del Valle/ANGELA /[id number]
[2019-11-08 04:54] LABS: BASOPHILS % 0.3 % (0.0-1.0); EOSINOPHILS # (AUTO) 0.5 (0.0-0.4); EOSINOPHILS % 3.9 % (0.0-6.0); HEMATOCRIT 32.4 % (38.2-49.6); HEMOGLOBIN 9.9 g/dL (14.0-18.0); LYMPHOCYTES # (AUTO) 1.1 (1.0-3.2); LYMPHOCYTES % 9.2 % (18.0-39.1); MEAN CORPUSCULAR HEMOGLOBIN 27.7 pg (28-32); MEAN CORPUSCULAR HGB CONC 30.6 g/dL (31-35); MEAN CORPUSCULAR VOLUME 90.8 fL (81-99); MONOCYTES # (AUTO) 0.9 (0.2-0.8); MONOCYTES % 7.7 % (4.4-11.3); NEUTROPHILS # (AUTO) 9.4 (2.1-6.9); NEUTROPHILS % 78.1 % (38.7-80.0); PLATELET COUNT 422 x10e3/uL (140-360); RED BLOOD COUNT 3.57 x10e6/uL (4.3-5.7); RED CELL DISTRIBUTION WIDTH 14.6 % (11.7-14.4)
[2019-11-08 05:19] LABS: ALANINE AMINOTRANSFERASE 71 IU/L (0-55); ALBUMIN 3.9 g/dL (3.5-5.0); ALKALINE PHOSPHATASE 98 IU/L (40-150); ANION GAP 19.3 mmol/L (8-16); BLOOD UREA NITROGEN 29 mg/dL (7-26); BUN/CREATININE RATIO 45 (6-25); CALCIUM 9.3 mg/dL (8.4-10.2); CARBON DIOXIDE 24 mmol/L (22-29); CHLORIDE 103 mmol/L (98-107); CREATININE, SERUM 0.64 mg/dL (0.72-1.25); EST GLOMERULAR FILTRATION RATE > 60 ML/MIN (60-); GLUCOSE 108 mg/dL (74-118); POTASSIUM 3.3 mmol/L (3.5-5.1); SODIUM 143 mmol/L (136-145)
[2019-11-08] MEDS: POTASSIUM CHLORIDE 20MEQ/15ML UDC NG SCH (08:10)
[2019-11-08] MEDS: FUROSEMIDE INJ 10 MG/ML 4 ML VIAL IV SCH (08:10)
[2019-11-08] MEDS: CHOLECALCIFEROL 1,000 UNIT TAB PO SCH (08:11)
[2019-11-08] MEDS: ZINC SULFATE 220 MG CAP PO SCH (08:11)
[2019-11-08] MEDS: ASCORBIC ACID 500 MG TAB PO SCH ×2 (08:11→20:08)
[2019-11-08] MEDS: MULTIVITAMINS/MINERALS TAB PO SCH (08:11)
[2019-11-08] MEDS: BALSAM PERU/CASTOR OIL 60 GM OINT...G. TP SCH ×2 (08:11→20:08)
[2019-11-08] MEDS: METOPROLOL TARTRATE 25 MG TAB PO SCH ×2 (08:11→20:08)
[2019-11-08] MEDS: ENOXAPARIN SOD INJ 40 MG/0.4 ML SYR SC SCH ×2 (08:11→20:08)
[2019-11-08] MEDS: BISMUTH SUBSALICYLATE 262 MG/15 ML 8OZ BTL PO PRN (08:12)
[2019-11-08] MEDS ORDERED: POTASSIUM CHLORIDE 20MEQ/15ML UDC NG ONE (08:15)
--- NOTE | 2019-11-08 09:25 | Progress Note ---
DATE: SUBJECTIVE: The patient has been on trach collar for over 24 hours. He has had some difficulty sleeping and has some irritability as a result. PHYSICAL EXAMINATION: VITAL SIGNS: The patient is afebrile, blood pressure is 146/78, saturation is 100% on trach collar, and heart rate is 100 to 105. HEENT: Shows no facial swelling or erythema. LYMPHATIC: Shows no submandibular, cervical, or supraclavicular adenopathy. CARDIAC: Reveals a regular rate and rhythm with normal S1 and S2. LUNGS: Auscultation of lungs shows decreased breath sounds at the bases. There is no wheezing. ABDOMEN: Soft and nontender. There is no rebound or guarding. EXTREMITIES: Show no leg edema or calf tenderness. LABORATORY DATA: BUN to creatinine ratio is normal. Potassium is 3.3. Other electrolytes are within normal limits. White blood cell count is 12, hemoglobin is 9.9, and platelet count is 422. IMPRESSION: 1. Acute respiratory failure. 2. Viral pneumonia and coronavirus disease 2019 infection. 3. Myopathy of critical illness. 4. Anemia. PLAN: 1. Continue trach collar. 2. Change to #6 Shiley today. 3. Continue physical therapy. 4. Continue Seroquel at night. 5. Possible transfer out of Intensive Care Unit to Intermediate Care. Maximilian Lowry MD [facility]/MODL /[id number]
--- NOTE | 2019-11-08 12:17 | Progress Note ---
DATE: 11/08/2019 Renal Progress Note SUBJECTIVE: Followed for hypokalemia, fluid overload, and COVID-19 pneumonia. The patient is on trach collar now off the vent and doing well. OBJECTIVE: VITAL SIGNS: Noted. Blood pressure is 146/91, saturating 100% on nasal cannula now, 105 pulse, and afebrile. LUNGS: Rales bilateral in all lung [place]. CARDIOVASCULAR: S1 and S2. No rub. ABDOMEN: Soft. Positive bowel sounds. EXTREMITIES: No edema. LABORATORY DATA: Potassium has come down to 3.3, BUN 29, creatinine 0.64, and sodium is 143. IMPRESSION AND PLAN: 1. Hypokalemia. Currently, the patient is getting potassium 40 mEq daily via the NG tube. He was given one dose of 60 mEq now and recheck in a.m. If continues to decline, we will increase the dose of the scheduled potassium. The patient is also getting Lasix 40 mg daily. 2. Hypertension. Blood pressure is currently stable. 3. COVID-19 pneumonia, improved, off the vent, off trach collar and now nasal cannula and doing well. 4. Fluid overload. Continue Lasix daily. May discontinue as soon as the patient is appearing to be euvolemic. MD ERIKA Bocanegra/MODL /[id number]
[2019-11-08 12:34] LABS: ABG HCO3 30 mmol/L (22-26); ABG PCO2 40 mmHg (35-45); ABG PH 7.48 (7.35-7.45); ABG PO2 117 mmHg (80-105); ABG TCO2 31
--- NOTE | 2019-11-08 15:57 | Progress Note ---
DATE: SUBJECTIVE: Mr. Miles pulled his trach today. He looks comfortable, however, he is on nasal cannula. He remains weak. He has a problem with swallowing, but overall slowly getting better. PHYSICAL EXAMINATION: GENERAL: He is currently alert. VITAL SIGNS: Stable, afebrile. HEENT: He is not icteric. NECK: Supple. CHEST: Few rhonchi in the bases. HEART: S1 and S2. ABDOMEN: Soft. Bowel sounds present. EXTREMITIES: No edema. SKIN: There is no rash. LABORATORY DATA: Reviewed. White count is 12. Potassium 3.3. IMPRESSION: Respiratory failure, slowly getting better, debility, myopathy, slowly getting better, concerned about aspiration, and anemia of chronic disease. He is colonized with gram- positive cocci in his sputum, but clinically he seems fine. Diarrhea probably from feeding. He is on Pepto-Bismol. Continue supportive care as ordered. Continue PT/OT. MD MAYURI Taylor/ANGELA /[id number]
[2019-11-08] MEDS ORDERED: LOPERAMIDE HCL 2 MG CAP PO PRN (17:30)
[2019-11-08] MEDS: QUETIAPINE FUMARATE 25 MG TAB PO SCH (20:08)
--- NOTE | 2019-11-08 20:28 | Progress Note ---
DATE: 11/08/2019 CONSULTANTS: 1. Dr. Lowry, Psychologist Personnel. 2. Dr. Maguire, Infectious Disease. 3. Dr. Casas, Cardiology. 4. Dr. Rodríguez, Nephrology. SUBJECTIVE: The patient is seen in the ICU, trach collar had been removed while upsizing to size #6. Tonsillar site is covered with 4 x 4 gauze, on 3 L of oxygen with no acute respiratory distress. Saturating 100% with no chest pain or discomfort. PHYSICAL EXAMINATION: VITAL SIGNS: Temperature 97.6, pulse is 89, respirations 25, blood pressure 115/74, pulse ox 99% on 3 L of nasal cannula. GENERAL: In no acute distress. HEENT: Normocephalic, atraumatic. LUNGS: With decreased breath sounds. CARDIOVASCULAR: Regular rate and rhythm. NEUROLOGIC: Alert and awake. MUSCULOSKELETAL: Moves all extremities. SKIN: Dry. PSYCH: Calm. LABORATORY DATA: WBCs 12.02, hemoglobin 9.9, hematocrit 32.4, and platelets 422. Sodium 143, potassium 3.3, BUN 29, creatinine 0.4, estimated GFR is greater than 60. AST 38, ALT 71. Blood gases, pH 7.48, pCO2 of 40, PO2 of 117, bicarb 30. IMPRESSION: 1. Acute respiratory failure due to COVID-19 pneumonia, status post tracheostomy, now off, currently on nasal cannula 3 L, saturating well. Off antibiotics. 2. Leukocytosis. WBCs are 12.3 today. We will continue to monitor. 3. Chronic anemia. Hemoglobin is stable. 4. Hypokalemia, replace. 5. Tachycardia. Beta-freddie per Cardiology. 6. Generalized edema. Diuretics per Renal. 7. Debility. Continue physical therapy as tolerated. 8. Deep vein thrombosis prophylaxis. Continue Lovenox subcu. PLAN: Continue current treatment. Transfer to [facility] if remains stable. Dictated by SNEHAL Laguerre Taylor Aparicio MD MY/MODL /[id number]
[2019-11-09] VITALS (23 sets, daily range): BP systolic 104–161; BP diastolic 90–108
[2019-11-09 06:00] LABS: ALANINE AMINOTRANSFERASE 62 IU/L (0-55); ALBUMIN 4.1 g/dL (3.5-5.0); ALKALINE PHOSPHATASE 95 IU/L (40-150); ANION GAP 19.5 mmol/L (8-16); BLOOD UREA NITROGEN 27 mg/dL (7-26); BUN/CREATININE RATIO 38 (6-25); CALCIUM 9.6 mg/dL (8.4-10.2); CARBON DIOXIDE 23 mmol/L (22-29); CHLORIDE 103 mmol/L (98-107); CREATININE, SERUM 0.71 mg/dL (0.72-1.25); EST GLOMERULAR FILTRATION RATE > 60 ML/MIN (60-); GLUCOSE 87 mg/dL (74-118); PHOSPHORUS 3.9 MG/DL (2.3-4.7); POTASSIUM 3.5 mmol/L (3.5-5.1); SODIUM 142 mmol/L (136-145)
--- NOTE | 2019-11-09 07:42 | Diagnostic Imaging Report ---
EXAMINATION: CHEST SINGLE (PORTABLE) INDICATION: Respiratory failure COMPARISON: Multiple processes is most recent on 11/06/2019. FINDINGS: TUBES and LINES: Interval removal of tracheostomy. Subdiaphragmatic enteric tube terminates in the expected location of the distal stomach. LUNGS: No significant interval changes in multifocal interstitial and airspace opacities. PLEURA: No pleural effusion or pneumothorax. HEART AND MEDIASTINUM: The cardiomediastinal silhouette is unchanged. BONES AND SOFT TISSUES: No acute osseous lesion. Soft tissues are unchanged. UPPER ABDOMEN: No free air under the diaphragm. IMPRESSION: 1. Interval extubation. 2. No significant interval change in multifocal interstitial and airspace opacities. Signed by: Peter Gibbs MD on 11/09/2019 7:38 AM
[2019-11-09] MEDS: FUROSEMIDE INJ 10 MG/ML 4 ML VIAL IV SCH (08:37)
[2019-11-09] MEDS: ENOXAPARIN SOD INJ 40 MG/0.4 ML SYR SC SCH ×2 (08:38→20:09)
[2019-11-09] MEDS: ZINC SULFATE 220 MG CAP PO SCH (08:38)
[2019-11-09] MEDS: MULTIVITAMINS/MINERALS TAB PO SCH (08:38)
[2019-11-09] MEDS: BALSAM PERU/CASTOR OIL 60 GM OINT...G. TP SCH ×2 (08:38→20:10)
[2019-11-09] MEDS: CHOLECALCIFEROL 1,000 UNIT TAB PO SCH (08:38)
[2019-11-09] MEDS: POTASSIUM CHLORIDE 20MEQ/15ML UDC NG SCH (08:38)
[2019-11-09] MEDS: METOPROLOL TARTRATE 25 MG TAB PO SCH ×2 (08:39→21:24)
[2019-11-09] MEDS: ASCORBIC ACID 500 MG TAB PO SCH ×2 (09:40→20:08)
--- NOTE | 2019-11-09 15:58 | NUR ---
progress note the patient was alert week but no new complaints his vitals stable afebrile on nasal cannula HEENT normocephalic neck supple chest few rhonchi heart S1-S2 abdomen is soft bowel sounds present extremities no edema Laboratory to review chart reviewed medication list reviewed Impression respiratory failure getting slowly better Debility continue with PT OT Aspiration hopefully he will get better with therapy Continue to should continue physical therapy
[2019-11-09] MEDS: QUETIAPINE FUMARATE 25 MG TAB PO SCH (20:08)
--- NOTE | 2019-11-09 22:05 | Progress Note ---
DATE: 11/09/2019 Renal Progress Note SUBJECTIVE: Followed for hypokalemia, fluid overload, and COVID-19 pneumonia. The patient actually been improving. He has now been on nasal cannula on 3 L. He is doing well. No nausea, no vomiting. Shortness of breath is improving. OBJECTIVE: VITAL SIGNS: Blood pressure 147/94, pulse 113, afebrile. LUNGS: Rhonchi bilaterally. CARDIOVASCULAR: S1 and S2. No rub. ABDOMEN: Soft and nontender. EXTREMITIES: No edema. LABORATORY DATA: H and H 9.9 and 32.4. Chemistries; sodium 142, potassium 3.5, BUN 27, and creatinine 0.7. IMPRESSION AND PLAN: 1. Hypokalemia, improved with potassium been given twice a day now via the G-tube. 2. Hypertension. Blood pressure is stable. 3. Fluid overload, on IV Lasix daily. 4. COVID-19 pneumonia, improved. He is no off ventilator, off trach collar. He is on 3 L nasal cannula and doing well. Alex Roger MD TH/MODL /[id number]
[2019-11-10] VITALS (21 sets, daily range): BP systolic 114–166; BP diastolic 69–111
[2019-11-10 06:24] LABS: ALANINE AMINOTRANSFERASE 61 IU/L (0-55); ALBUMIN 4.7 g/dL (3.5-5.0); ALKALINE PHOSPHATASE 105 IU/L (40-150); ANION GAP 17.2 mmol/L (8-16); BLOOD UREA NITROGEN 32 mg/dL (7-26); BUN/CREATININE RATIO 44 (6-25); CALCIUM 10.5 mg/dL (8.4-10.2); CARBON DIOXIDE 27 mmol/L (22-29); CHLORIDE 101 mmol/L (98-107); CREATININE, SERUM 0.73 mg/dL (0.72-1.25); EST GLOMERULAR FILTRATION RATE > 60 ML/MIN (60-); GLUCOSE 121 mg/dL (74-118); PHOSPHORUS 4.3 MG/DL (2.3-4.7); POTASSIUM 3.2 mmol/L (3.5-5.1); SODIUM 142 mmol/L (136-145)
[2019-11-10 07:37] LABS: BASOPHILS # (AUTO) 0.1 (0.0-0.1); BASOPHILS % 0.3 % (0.0-1.0); EOSINOPHILS # (AUTO) 0.3 (0.0-0.4); EOSINOPHILS % 1.5 % (0.0-6.0); HEMATOCRIT 34.6 % (38.2-49.6); HEMOGLOBIN 10.9 g/dL (14.0-18.0); LYMPHOCYTES # (AUTO) 1.2 (1.0-3.2); LYMPHOCYTES % 6.7 % (18.0-39.1); MEAN CORPUSCULAR HEMOGLOBIN 27.6 pg (28-32); MEAN CORPUSCULAR HGB CONC 31.5 g/dL (31-35); MEAN CORPUSCULAR VOLUME 87.6 fL (81-99); MONOCYTES # (AUTO) 1.1 (0.2-0.8); NEUTROPHILS # (AUTO) 15.5 (2.1-6.9); NEUTROPHILS % 84.8 % (38.7-80.0); PLATELET COUNT 462 x10e3/uL (140-360); RED BLOOD COUNT 3.95 x10e6/uL (4.3-5.7); RED CELL DISTRIBUTION WIDTH 14.6 % (11.7-14.4)
[2019-11-10] MEDS: CHOLECALCIFEROL 1,000 UNIT TAB PO SCH (09:47)
[2019-11-10] MEDS: METOPROLOL TARTRATE 25 MG TAB PO SCH ×2 (09:47→20:17)
[2019-11-10] MEDS: ZINC SULFATE 220 MG CAP PO SCH (09:47)
[2019-11-10] MEDS: MULTIVITAMINS/MINERALS TAB PO SCH (09:47)
[2019-11-10] MEDS: ASCORBIC ACID 500 MG TAB PO SCH ×2 (09:47→20:45)
[2019-11-10] MEDS: ENOXAPARIN SOD INJ 40 MG/0.4 ML SYR SC SCH ×2 (09:47→20:19)
[2019-11-10] MEDS: BALSAM PERU/CASTOR OIL 60 GM OINT...G. TP SCH ×2 (09:47→20:45)
[2019-11-10] MEDS: POTASSIUM CHLORIDE 20MEQ/15ML UDC NG SCH (09:47)
--- NOTE | 2019-11-10 10:01 | NUR ---
updated clinical faxed to [facility].
[2019-11-10] MEDS ORDERED: SOD CHL 0.45%/POT CHL 20MEQ 1,000 ML IV ONE (10:45)
--- NOTE | 2019-11-10 11:28 | Progress Note ---
DATE: SUBJECTIVE: The patient is still having diarrhea. His white count is increased to 18. He has some intermittent confusion. He is down to 2.5 L and his saturations are in the high 90s. PHYSICAL EXAMINATION: VITAL SIGNS: The patient is afebrile. The blood pressure is 146/98. Saturation is 100% on 2 L and his heart rate is 120 to 130. He is afebrile. HEENT: Shows no facial swelling or erythema. There is a bandage over the tracheostomy site. LYMPHATIC: Shows no submandibular, cervical, or supraclavicular adenopathy. CARDIAC: Reveals a regular rate and rhythm with normal S1 and S2. LUNGS: Auscultation of lungs shows decreased breath sounds at the bases. There is no wheezing. ABDOMEN: Soft and nontender. There is no rebound or guarding. EXTREMITIES: Shows no leg edema or calf tenderness. There is no cyanosis or clubbing. SKIN: Shows no rashes. NEUROLOGICAL: Shows no focal abnormalities. LABORATORY DATA: White blood cell count is 18.2, hemoglobin 10.9 and the platelet count is 462. The BUN to creatinine ratio is 32 to 0.73 and the potassium is 3.2. The other electrolytes are within normal limits. IMPRESSION: 1. Diarrhea and leukocytosis. 2. Viral pneumonia COVID-19 infection. 3. Anemia. 4. Tachycardia. PLAN: 1. The patient to receive a L of half-normal saline with potassium today. 2. Continue to monitor heart rate as well as BUN and creatinine. 3. Continue enteral feedings. 4. Begin treatment for antibiotic associated diarrhea. 5. Transfer out of intensive care unit to [facility]. 6. Arrange disposition. Maximilian Lowry MD [facility]/REYESL /[id number]
--- NOTE | 2019-11-10 12:08 | Progress Note ---
DATE: 11/10/2019 Cardiology Progress Note SUBJECTIVE: No complaints. OBJECTIVE: VITAL SIGNS: Temperature 97.4, heart rate 123, sinus tachycardia on telemetry, blood pressure 144/94, respiratory rate 23, and O2 saturation 100%. GENERAL: In no acute distress. Alert. NECK: With trach in place. CHEST: Decreased breath sounds. CARDIOVASCULAR: Regular rate and rhythm. Normal S1 and S2. Tachycardic. No S3. No S4. ABDOMEN: Soft. Bowel sounds positive. EXTREMITIES: No edema. CARDIOVASCULAR MEDICATIONS: Reviewed. Metoprolol tartrate 25 mg every 12 hours, furosemide 40 mg daily, and Lovenox 40 mg q.12 hours subcutaneous. STUDIES: Reviewed. White blood cells 18, hemoglobin 10.9, and platelets 462. INR 1.2. ASSESSMENT AND PLAN: A 44-year-old man with COVID-19 infection, community-acquired pneumonia, acute respiratory failure, status post trach. RECOMMEND: 1. Continue PT/OT. 2. Continue beta-freddie. 3. Consider diuretic holiday and evaluation for any over infection given tachycardia. John Romero MD [facility]/MODL /[id number]
--- NOTE | 2019-11-10 12:18 | NUR ---
Nutrition Intervention Note RD Recommendation(s) for Physician: - Continue Pivot 1.5. Recommend increasing goal rate to 45 ml/hr (to provide 1620 kcal and 101 gm protein). Give 2 packets/day Beneprotein (provides an additional 50 kcal and 12 gm protein) - Water flushes and fluid management per MD - Recommend giving probiotic- Floranex/lactinex BID in light of abx associated diarrhea - Advancement of diet as feasible per MD/NIGHT TIME NANNY Plan of Care: RD following, TF rec's, monitor adequacy and tolerance, tube feed recommendation Nutrition reason for involvement: follow up RD Assessment 11/09: Follow up. Pt off vent, on trach collar with O2 per NC. Pt transferred to [facility] ICU and pending transfer to IMCU. Pt with intermittent confusion, continues on TF of Pivot 1.5 at goal rate. Pt with ongoing abx associated diarrhea, started on immodium and pepto bismol today. Chart reviewed. Rec's provided. Will continue to monitor. 11/04: Follow up. Chart reviewed. Pt remains on vent with trach. Pt is tolerating TF of Pivot 1.5 @ 40 mL/hr per chart. Pt is no longer receiving propofol per RN; therefore, new recommendations are provided. RD to manage TF order per Dr. Lowry. Will continue to monitor. 10/30: Follow up. Chart reviewed. Last recorded propofol rate was 5.2 mL/hr. Pt is tolerating TF per RN and is receiving Pivot @ 40 mL/hr. Current tube feeding remains appropriate. Will continue to monitor. 10/27: Follow up. Pt s/p trach placement yesterday. Pt observed outside of room, supine and physically appears well nourished. Spoke with RN on unit, TF resumed, infusing at goal rate post trach placement, and pt tolerating well. Pt continues to require fluctuating Propofol dosage. Current TF remains appropriate to meet needs, Propofol providing additional kcal currently. Chart reviewed. Will continue to monitor. 10/23: Follow up. Chart reviewed. Pt remains intubated and sedated. Pt is receiving propofol at 11.3 mL/hr which provides an additional 298 kcal. Last recorded tube feed rate was 30 mL/hr this morning. Pt is receiving Vital High Protein per RN. Recommend modifying tube feeding to Pivot 1.5. RD to manage TF order per Dr. Lowry. Will continue to monitor. 10/20: Follow up. Pt remains intubated, sedated, and paralyzed. Propofol stopped yesterday. Pt continues to require intermittent proning. No GI distress, pt having BMs, and TF currently infusing at 30 ml/hr. Noted Phos elevated after KPhos replacement. Plan for trach placement. Chart reviewed. In light of Propofol d/c, updated TF rec's provided. RD to manage TF order per Dr. Lowry. Will continue to monitor. 10/16: Follow up. Chart reviewed. Pt remains intubated and sedated. Pt is in the prone position per chart. Pt remains on Vital AF 1.2 trickle feeding currently at 10 mL/hr Recommended considering TPN if tube feeding rate is unable to be increased. Pt is receiving propofol at 22.6 mL/hr per chart which provides 597 kcal. Will continue to monitor 10/12: Follow up. Pt remains intubated and sedated with Propofol and Versed. Pt paralyzed with Nimbex. Pt now on Levophed, currently at 10 mcg/min. Pt on trickle TF currently, pt with ileus per MD notes. Spoke with Dr. Lowry over the phone, RD recommended considering TPN as pt continues to not meet needs with TF and currently with an ileus. MD stated that he would prefer to utilize the gut for now and will re-evaluate. RD requested Phos and Mg be drawn in case TPN required tomorrow to evaluate for replacements and initiation. Noted afternoon Phos and Mg WNL. Chart reviewed, plan for trach placement. TPN and TF rec's provided. Will continue to monitor. 10/09: Follow up. Chart reviewed. MD note indicates pt is in the supine position. Per documentation, pt is receiving TF at 30mL/hr not meeting kcal or protein needs. Current recommendations remain appropriate recommend increasing rate to 60 mL/hr. Will continue to monitor. 10/05: Follow up. Chart reviewed. Pt remains intubated and was in the supine position overnight. Pt is no receiving propofol at this time. Pts tube feed is at 20 mL/hr per chart not meeting kcal or protein needs. Tube feed recommendations provided. Will continue to monitor. 10/01: Follow up. Pt remains intubated, sedated on Propofol, and paralyzed. Pt requiring to be proned. TF rate decreased to 20 ml/hr currently- not meeting kcal or protein needs. TF rec's provided. Chart reviewed. Will continue to monitor. 09/29: Follow up. Pt remains intubated, sedated on high dose Propofol, and paralyzed. Pt requiring to be in intermittent prone positioning. TF infusing at 35 ml/hr, not meeting protein needs. TF rec's provided. Chart reviewed. Will continue to monitor. 09/25: Follow up. Chart reviewed. Pt remains intubated and sedated. Pt is receiving propofol at 7.8 mL/hr which provides 205 lipid kcal. TF is infusing at 20 mL/hr. Recommend modifying tube feed formula to Vital High Protein at this time. Will continue to monitor. 09/22: Follow up. Pt remains intubated, sedated, and paralyzed. Pt requiring proning. TF infusing at 10 ml/hr and TPN weaned to 20 ml/hr. Chart reviewed. TF and TPN rec's provided pending ability to advance TF. Will continue to monitor. 09/18: Follow up. Chart reviewed. Pt remains intubated and sedated. Pt was started on tube feeding. Last recorded rate was 20 mL/hr this afternoon. Pt continues to receive TPN @ 42 mL/hr. Propofol rate is at 13.4 mL/hr (provides 354 kcal). Recommendations provided. Will continue to monitor 09/15: Follow up. Pt remains intubated, sedated on Propofol at 19.6 ml/hr, and paralyzed. Pt continues on TPN at 42 ml/hr, not meeting needs. Pt continues with persistent ileus and is receiving enemas and suppositories. Pt requiring daily proning 2/2 respiratory status. TF order remains, recommend NPO for now. TPN goal rec's provided, continues at 42 ml/hr. Chart reviewed. Will continue to monitor. 09/11: Follow up. Chart reviewed. Pt remains intubated and sedated. Pt is receiving 30 mL/hr of propofol per documentation which provides 792 lipid kcal. Tube feeding has been held due to abdominal distention and pt was started on TPN @ 42 mL/hr today. MD note indicates pt has an ileus. Recommendations provided. Will continue to monitor. 09/07: Follow up. Chart reviewed. Pt remains intubated and sedated. Pt is receiving 23.6 mL/hr of propofol per documentation which provides 623 lipid kcal. TF was at 20 mL/hr last night per chart. Per MD note, pts abdomen is distended and has not had a BM. Will continue to monitor. 09/04: Follow up. Pt remains intubated and sedated. Pt is receiving 9 mL/hr of propofol per documentation, which provides 238 lipid kcal. TF was at 20 mL/hr per chart yesterday. No additional administration rate is available. Will continue to monitor. 09/02: Follow up. Pt remains intubated, paralyzed, and sedated on Propofol and Versed. Pt requiring proning. TF rate at 10 ml/hr per TF documentation yesterday- inadequate EN currently, no additional EN administration available per chart. Recommend continuing EN while pt is proned by placing them in reverse Trendelenburg position. If unable to advance TF to goal rate, recommend considering PN. Chart reviewed. Will continue to monitor. 08/29: Initial encounter with patient. Pt is sedated and orally intubated. Pt was not able to provide a nutrition Hx at the time of visit. Unable to observe oral cavity or perform a nutrition focused physical exam. Jevity 1.2 infusing at 20ml hr with a goal of 50ml/hr. Propofol provides 1.1kcal/ml EN provides 576 kcals, 26.64g of protein, and 387.36ml of free H2O Principal Problems/Diagnoses: CoVID 19 pneumonia PMH: No significant medical Hx, overweight/obesity GI: soft/large/round abdomen, last recorded BM 11/09- diarrhea Skin: stage 2 right ear pressure ulcer, penis ischemic edema, bilateral knees- ischemic edema, scrotal abrasion No edema currently Labs: 11/09: Na 142, k 3.2, BUN 32, Cr 0.73, Gluc 121, Ca 10.5, Phos 4.3, Mg 2 11/04: Na 143, K 3.9, BUN 26, Cr 0.64, Glu 104, Ca 8.9 10/30: Na 142, K 3.9, BUN 37, Glu 137, Ca 9.3, Phos 3.4, Mg 2.5 10/27: Na 139, K 3.4, BUN 25, Cr 0.76, Gluc 111, Phos 3.6, Mg 2.2 10/23: Na 138, K 3.5, BUN 20, Cr 0.76, Glu 114, Ca 8.6 10/20: Na 136, K 5, BUN 12, Cr 0.6, Gluc 108, Phos 5.9, Mg 2.4, POC Gluc 103-115 10/16: Na 143, K 3.4, BUN 10, Cr 0.51, Glu 101 10/12: Na 139, K 4.1, BUN 20, Cr 0.57, Cl 103, CO2 25, Gluc 135, Phos 3.3, Mg 1.8 10/09: Na 140, K 3.4, BUN 15, Cr 0.44, Glu 103 10/05: Na 139, K 3.3, BUN 15, Cr 0.42, Glu 113, Ca 8.2 10/01: Na 139, K 4, BUN 12, Cr 0.59, Gluc 141, POC Gluc 127-175 09/29: Na 138, K 2.9, BUN 5, Cr 0.39, Gluc 87, POC 107-116 Meds: KCl, MVI with minerals, zinc sulfate, vitamin D, vitamin C, seroquel, abx, imodium, pepto bysmol Ht: 67 in. Wt: 186 lbs () 186 lbs (11/02) 193 lbs (10/26)- continued wt fluctuations, 203.56 lbs (10/17) 156 lbs- questionable wt (10/16) 206 lbs (10/12) 212 lbs (10/09) 236 lbs (10/05) 251 lbs (09/28) 253.5 lbs (09/25) 254.31 lb, 200.44lbs (08/29) - admit wt BMI: 31.4kg/m2 (weight used- 200 lbs) IBW: 148 lbs Malnutrition Evaluation (11/10/2019) The patient does not meet criteria for a specified degree of malnutrition at this time. Will re-evaluate at follow-up as appropriate. Intake adequacy: TF meeting needs Wt loss: pt with wt fluctuations since admit related to fluid Fat loss: none, ample skinfold thickness of arm observed outside pt room when in ICU Muscle loss: none, shoulder round, pentecostal muscle apparent as observed outside of pt room when in ICU Edema: moderate, +2 edema Functional status: JACOB due to isolation Nutrition Prescription (Diet Order): Pivot 1.5 at 40 ml/hr + Beneprotein BID (providing 1490 kcal and 102 gm protein) Estimated Nutritional Needs: re-assessed 11/09 7023-2557 calories/day (18-20 kcal/kg CBW) 85-127 g protein/day (1-1.5 g pro/kg CBW) Diet Adequacy: meeting calorie needs, meeting protein needs Diet Education Needs Assessment: Diet education not indicated. Nutrition Care Level: moderate Nutrition Diagnosis: Inadequate energy and protein intake related to intubation as evidenced by pt requiring alternative means of nutrition. Goal: Patient will meet 75-100% of estimated needs by follow up Progress: goal met Interventions: Composition, Rate, Route, Recommended modifications Monitoring/Evaluation: Total energy intake, Total protein intake, Formula/Solution, Prescription medication, Weight change Signed: Mary Rodney RD, LD, [facility]
--- NOTE | 2019-11-10 13:08 | Progress Note ---
DATE: SUBJECTIVE: The patient is now on a nasal cannula at 3 L. He is awake and conversing. He is eager to leave the Intensive Care Unit and go to the regular medical [facility]. He has no fevers. PHYSICAL EXAMINATION: VITAL SIGNS: Stable. The saturation is 100% on 3 L. His pulse is 100-105. His respiratory rate is in the low 20s. HEENT: Shows no facial swelling or erythema. LYMPHATIC: Shows no submandibular, cervical, or supraclavicular adenopathy. CARDIAC: Reveals regular rate and rhythm. Normal S1, S2. LUNGS: Auscultation of lungs revealed decreased breath sounds at the bases. There is no wheezing. ABDOMEN: Soft, nontender. There is no rebound or guarding. EXTREMITIES: Shows no leg edema or calf tenderness. There is no cyanosis or clubbing. RADIOGRAPHIC DATA: Chest x-ray still shows bilateral infiltrates. IMPRESSION: 1. Acute respiratory failure. 2. Viral pneumonia and COVID-19 infection. 3. Myopathy of critical illness. 4. Anemia. PLAN: 1. Continue nasal cannula. 2. Out of bed as tolerated. 3. Physical therapy. 4. Repeat CBC and CMP. Maximilian Lowry MD [facility]/MODL /[id number]
--- NOTE | 2019-11-10 15:15 | Progress Note ---
DATE: 11/09/2019 CONSULTANTS: 1. Dr. Lowry, administrative assistant. 2. Dr. Maguire, Infectious Disease. 3. Dr. Casas, Cardiology. 4. Dr. Rodríguez, Nephrology. SUBJECTIVE: The patient remains stable on nasal cannula. He denies any chest pain, shortness of breath, nausea, or vomiting. PHYSICAL EXAMINATION: VITAL SIGNS: Temperature 98.0, pulse is 124, respirations 25, blood pressure 140/94, and pulse ox is 100% on 2 L nasal cannula. GENERAL: No acute distress. HEENT: Normocephalic, atraumatic. LUNGS: With decreased breath sounds. CARDIOVASCULAR: Tachycardic. S1, S2 heard. NEUROLOGIC: Alert, awake, and oriented to self. MUSCULOSKELETAL: Moves all extremities, although generalized weakness. SKIN: Dry. PSYCH: Calm. LABORATORY DATA: Sodium 142, potassium 3.5, CO2 of 23, BUN 27, creatinine 0.71, and estimated GFR greater than 60. . IMPRESSION: 1. Acute respiratory failure status post tracheostomy, now out, on nasal cannula 2 L saturating over 95%. Off antibiotics. 2. Leukocytosis. WBC is 12, afebrile, we will continue to monitor. 3. Chronic anemia. Stable. 4. Hypokalemia. Replace. 5. Tachycardia. Continue with beta freddie per Cardiology. 6. Generalized edema. Continue with diuretics per Renal. 7. Debility. Continue physical therapy and OT as tolerated. 8. Deep vein thrombosis prophylaxis. Lovenox subcu. PLAN: To continue current treatment, may transfer to [facility], CM consulted for rehab placement. Pending swallowing eval tomorrow. Continue NG tube feeding until then. Dictated by SNEHAL Laguerre Taylor Aparicio MD MY/MODL /[id number]
[2019-11-10] MEDS: VANCOMYCIN 250MG/5ML ORAL SOLN PO SCH ×2 (15:26→18:22)
--- NOTE | 2019-11-10 16:15 | NUR ---
Per Chichi with [facility], pt has been approved. Will work on getting a bed. Informed her that Dr. Lowry is requesting that Dr. Cox be attending. MOT initiated and placed with pt's packet on chart. LETY called and spoke with DONNA Ha and informed her that pt has been approved. Chichi will call MOT to nurse. CM called and updated pt's mother Reyna Miles regarding acceptance for LTAC.
--- NOTE | 2019-11-10 16:21 | Progress Note ---
DATE: 11/10/2019 Nephrology Follow Up Note SUBJECTIVE: The patient is awake and looks oriented. He is followed up for fluid overload and hypokalemia in association with COVID-19 pneumonia. He is now off the ventilator. Seems to be breathing comfortably. Still has an NG tube in for feeding. OBJECTIVE: VITAL SIGNS: Stable. Blood pressure 142/94, afebrile. Pulse 105 per minute. NECK: Without JVP. CHEST: Bilateral air entry, without respiratory distress. CARDIOVASCULAR: Normal S1, S2. ABDOMEN: Soft, nondistended. EXTREMITIES: Without pitting edema or cyanosis. LABORATORY DATA: Hemoglobin 10.9, white count 18.2, normal platelet count. Serum chemistries show a potassium of 3.2, otherwise unremarkable electrolytes, normal creatinine of 0.73 with BUN of 32. IMPRESSION: 1. Hypokalemia, continue to replace per ICU. 2. Fluid overload, appears much improved. Urine output in the last 24 hours appears to be 1400 mL. IV Lasix discontinued. 3. Nutrition, waiting for swallowing study today. Marcos Marsh MD [facility]/MODL /[id number]
--- NOTE | 2019-11-10 19:06 | Progress Note ---
DATE: SUBJECTIVE: Mr. Miles seems to be confused today. He is on 3 L. No fever. He had green output diarrhea, but his white count increased today. His sputum showed Pseudomonas aeruginosa, but his white count went up to 18. PHYSICAL EXAMINATION: GENERAL: He is currently alert. VITAL SIGNS: Stable. HEENT: Not icteric. NECK: Supple. CHEST: Few rhonchi. HEART: S1, S2. ABDOMEN: Soft. Bowel sounds present. EXTREMITIES: No edema. IMPRESSION: Respiratory failure, getting better, weaning down, confusion, diarrhea, leukocytosis, could be Clostridium difficile. We will give oral vancomycin. Continue supportive care. MD MAYURI Taylor/MODL /[id number]
--- NOTE | 2019-11-10 20:40 | NUR ---
EMS AT BEDSIDE FOR TRANSFER TO [facility]. SPOKE TO DR. Max BERGERON REGARDING PATIENT'S MENTAL STATUS. PATIENT IS VERY ANXIOUS AND AGITATED ABOUT TRANSFER TO LTAC. VITAL SIGN WNL, PT APPEARS TO BE IN NO OTHER DISTRESS AND DENIES SOB. DR. Kirby BERGERON ORDERS 1 MG ATIVAN IVP AT THIS TIME.
[2019-11-10] MEDS ORDERED: LORAZEPAM INJ 2 MG/ML VIAL IV ONE (20:45)
--- NOTE | 2019-11-10 20:46 | NUR ---
Pt. to be transferred to LTAC. RN spoke with patients daughter, and provided update, along with new facilities address, and phone number. CN, and Genetic Coordinator Mair at bedside. Phone number listed, as mother's is a non functioning phone number. Staff notified. Toby CM states she updated pt's mother. Addendum: 11/11/19 at 0056 by Cheli Ashton RN Report called to receiving nurseMeena. Pt. DCD.
[2019-11-10] MEDS ORDERED: LORAZEPAM INJ 2 MG/ML VIAL ONE (20:48)
--- NOTE | 2019-11-10 20:52 | NUR ---
SPOKE TO DR. Myriam VINCENT REGARDING PATIENT'S MENTAL STATUS. PATIENT IS HAVING PARANOID THOUGHTS AND IS VERY ANXIOUS. PT REPORTING THAT THE OTHER NURSES ARE TRYING TO KILL HIM, THE AIR IS TRYING TO KILL HIM AND THE DAY NURSE GAVE HIM MEDICATIONS TO HARM HIM. DR. Myriam VINCENT ACKNOWLEDGED AND STATED THAT HE WOULD CONSULT PSYCH ON ARRIVAL TO [facility].
[2019-11-10] MEDS ORDERED: QUETIAPINE FUMARATE 25 MG TAB PO SCH (21:00)
--- NOTE | 2019-11-10 21:02 | NUR ---
SPOKE TO PATIENT'S MOTHER, SHA, AND UPDATED HER ON PATIENT'S STATUS AND TRANSFER TO [facility]. MOTHER ACKNOWLEDGE AND DOESN'T HAVE ANY QUESTIONS AT THIS TIME.
--- NOTE | 2019-11-11 09:45 | Discharge Summary ---
FINAL DISCHARGE DIAGNOSES: 1. Acute respiratory failure due to COVID-19 pneumonia. 2. Chronic anemia. 3. Tachycardia. 4. Generalized edema. 5. Debility. CONSULTANTS: 1. Dr. Lowry with belt and link assembly supervisor. 2. Dr. Maguire, Infectious Disease. 3. Dr. Casas, Cardiology. 4. Dr. Rodríguez, Nephrology. PROCEDURES: 1. Intubated and extubated after tracheostomy was placed. 2. Tracheostomy was removed when upsizing. HISTORY: Per HPI. HOSPITAL COURSE: This is a 44-year-old male with past medical history of hypertension, presented to the ER on August 24, 2019 with complaints of shortness of breath. He was diagnosed with COVID-19 pneumonia. He was started on IV antibiotics and high-flow nasal cannula, but his respirations continued to worsen. He was intubated for over 2 months. He continued to improve. The surgical team was consulted and tracheostomy was placed for acute respiratory failure. He was weaned down to the trach collar. His ABGs continue to improve, diuretic were managed by the Renal Team. He continued to do well on the trach collar and when he was off the trach when I was trying to upsize the trach. He is now on 2 L of nasal cannula, saturating well. Still tachycardic, but is continuing on beta freddie three times a day by Cardiology. He has NG tube feeding, but very debilitated and bed-bound since August 24, 2019. He is off sedation and overall doing well. We will discharge him to [facility] for further care and rehabilitation. PHYSICAL EXAMINATION: VITAL SIGNS: Temperature 98.4, pulse is 131, respirations 24, blood pressure 158/111, pulse ox is 97% on 2 L of oxygen. CONDITION AT DISCHARGE: Improved and stable. DISCHARGE MEDICATIONS: Resume all current medication. FOLLOWUP: At [place]. TIME SPENT: Total discharge time is 32 minutes. Dictated by SNEHAL Laguerre Taylor Aparicio MD [facility]/MODL /[id number]
== END 2019-11-10 23:29 | DRG 4 ==
LOC: ER 17:16 → ERHOLD 17:17 → IMCU 20:34 → ICU 08-25 11:25 → COVIDICU 08-28 → ICU 10-22 03:55 → COVIDICU 11-01 17:33
PROVIDERS: ADMIT Internal Medicine; ATTEND Internal Medicine
PROC: XW043E5 Introduction of Remdesivir Anti-infective into Central Vein, Percutaneous Approach, New Technology Group 5 (ICD-10-PCS; 2019-08-25)
PROC: XW0 New Technology, Anatomical Regions, Introduction (ICD-10-PCS; 2019-08-25)
PROC: 5A1955Z Respiratory Ventilation, Greater than 96 Consecutive Hours (ICD-10-PCS; principal; 2019-08-29)
PROC: 0BH17EZ Insertion of Endotracheal Airway into Trachea, Via Natural or Artificial Opening (ICD-10-PCS; 2019-08-29)
PROC: 03HY32Z Insertion of Monitoring Device into Upper Artery, Percutaneous Approach (ICD-10-PCS; 2019-08-29)
PROC: 4A133B1 Monitoring of Arterial Pressure, Peripheral, Percutaneous Approach (ICD-10-PCS; 2019-08-29)
PROC: 4A133J1 Monitoring of Arterial Pulse, Peripheral, Percutaneous Approach (ICD-10-PCS; 2019-08-29)
PROC: 02HV33Z Insertion of Infusion Device into Superior Vena Cava, Percutaneous Approach (ICD-10-PCS; 2019-08-29)
PROC: B548ZZA Ultrasonography of Superior Vena Cava, Guidance (ICD-10-PCS; 2019-08-29)
PROC: 3E043XZ Introduction of Vasopressor into Central Vein, Percutaneous Approach (ICD-10-PCS; 2019-08-31)
PROC: 0B21XEZ Change Endotracheal Airway in Trachea, External Approach (ICD-10-PCS; 2019-09-01)
PROC: 3E0436Z Introduction of Nutritional Substance into Central Vein, Percutaneous Approach (ICD-10-PCS; 2019-09-11)
PROC: 30243N1 Transfusion of Nonautologous Red Blood Cells into Central Vein, Percutaneous Approach (ICD-10-PCS; 2019-09-12)
PROC: 30243N1 Transfusion of Nonautologous Red Blood Cells into Central Vein, Percutaneous Approach (ICD-10-PCS; 2019-09-15)
PROC: 30243N1 Transfusion of Nonautologous Red Blood Cells into Central Vein, Percutaneous Approach (ICD-10-PCS; 2019-10-03)
PROC: 02HV33Z Insertion of Infusion Device into Superior Vena Cava, Percutaneous Approach (ICD-10-PCS; 2019-10-11)
PROC: B548ZZA Ultrasonography of Superior Vena Cava, Guidance (ICD-10-PCS; 2019-10-11)
PROC: 30243N1 Transfusion of Nonautologous Red Blood Cells into Central Vein, Percutaneous Approach (ICD-10-PCS; 2019-10-12)
PROC: 30243N1 Transfusion of Nonautologous Red Blood Cells into Central Vein, Percutaneous Approach (ICD-10-PCS; 2019-10-25)
PROC: 0B110F4 Bypass Trachea to Cutaneous with Tracheostomy Device, Open Approach (ICD-10-PCS; 2019-10-27)
PROC: 30243N1 Transfusion of Nonautologous Red Blood Cells into Central Vein, Percutaneous Approach (ICD-10-PCS; 2019-10-31)
PROC: 30243N1 Transfusion of Nonautologous Red Blood Cells into Central Vein, Percutaneous Approach (ICD-10-PCS; 2019-11-01)
DX: U07.1 COVID-19 (principal); J12.89 Other viral pneumonia; I50.33 Acute on chronic diastolic (congestive) heart failure; J96.21 Acute and chronic respiratory failure with hypoxia; J15.9 Unspecified bacterial pneumonia; A41.9 Sepsis, unspecified organism; R65.21 Severe sepsis with septic shock; K56.7 Ileus, unspecified; E46 Unspecified protein-calorie malnutrition; N17.9 Acute kidney failure, unspecified; K92.2 Gastrointestinal hemorrhage, unspecified; E87.3 Alkalosis; G72.81 Critical illness myopathy; L89.022 Pressure ulcer of left elbow, stage 2; L89.892 Pressure ulcer of other site, stage 2; D69.6 Thrombocytopenia, unspecified; R16.1 Splenomegaly, not elsewhere classified; S05.00XA Injury of conjunctiva and corneal abrasion without foreign body, unspecified eye, initial encounter; D50.0 Iron deficiency anemia secondary to blood loss (chronic); E87.6 Hypokalemia; D64.9 Anemia, unspecified; I11.0 Hypertensive heart disease with heart failure; R14.0 Abdominal distension (gaseous); D50.9 Iron deficiency anemia, unspecified; D51.9 Vitamin B12 deficiency anemia, unspecified; E86.0 Dehydration; E88.09 Other disorders of plasma-protein metabolism, not elsewhere classified; R00.0 Tachycardia, unspecified; E66.01 Morbid (severe) obesity due to excess calories; Z68.31 Body mass index [BMI] 31.0-31.9, adult; K59.00 Constipation, unspecified; E83.39 Other disorders of phosphorus metabolism; B96.5 Pseudomonas (aeruginosa) (mallei) (pseudomallei) as the cause of diseases classified elsewhere; B95.62 Methicillin resistant Staphylococcus aureus infection as the cause of diseases classified elsewhere
CPT/HCPCS: 31500; 31720; 36415; 36569; 36584; 36600; 71045; 71260; 74018; 74177; 76700; 76770; 80048; 80053; 80076; 80202; 81001; 82150; 82550; 82553; 82607; 82728; 82746; 82805; 82948; 83010; 83540; 83605; 83615; 83690; 83735; 83880; 84100; 84145; 84466; 84484; 85025; 85045; 85379; 85384; 85520; 85610; 85730; 86022; 86850; 86870; 86880; 86900; 86905; 86920; 86922; 87015; 87040; 87070; 87071; 87086; 87102; 87186; 87205; 87206; 87493; 93005; 93306; 94002; 94003; 94640; 94664; 96361; 96366; 97139; 99001; 99251; 99284; C1751; J0330; J0360; J0456; J0692; J0696; J1100; J1200; J1364; J1650; J1756; J1940; J2060; J2150; J2250; J2270; J2765; J2930; J3260; J3370; J3420; J3475; J3480; J7030; J7040; J7050; J7120; J7121; P9016; P9047; Q9967

== ENCOUNTER → 2021-06-17 | Outpatient (CLI) | payer BC | LOC: RAD 12:58 | PROVIDERS: ATTEND Internal Medicine Critical Care Medicine | DX: J84.10 Pulmonary fibrosis, unspecified (principal) | CPT/HCPCS: 71046 ==

== ENCOUNTER → 2024-04-15 | Outpatient (REF) | payer OTHER ==
[~2024-04-15] MED LIST changes: +ALBUTEROL2.5 MG/0.5 INH; +DIOVAN160 MG PO; +METOPROLOL SUCC50 MG PO; +SINGULAIR10 MG PO; +XOFLUZA80 MG PO
== END ==
LOC: US 07:29
PROVIDERS: ATTEND Nurse Practitioner
DX: K29.60 Other gastritis without bleeding (principal); K42.9 Umbilical hernia without obstruction or gangrene
CPT/HCPCS: 76700